=== PATIENT | male | born 1960 | race Caucasian/White ===

== ENCOUNTER → 2024-07-02 10:54 | Inpatient (IN) | payer MEDICARE, MEDICAID, SELFPAY ==
[2023-02-26] VITALS (10 sets, daily range): BP systolic 94–116; BP diastolic 64–72; PULSE 80–97; RESP 20–24; TEMP 36.4–36.6; O2SAT 97–99
[2023-02-26] MEDS: ALBUTEROL NEB 2.5 MG/3 ML VIAL.NEB INH ×4 (00:37→19:07)
[2023-02-26] MEDS: IPRATROPIUM BROMIDE 0.2 MG/ML SOLUTION 0.5 MG INH ×2 (00:37→09:15)
--- NOTE | 2023-02-26 02:31 | PC.RT ---
meds given at 00:37 both Atrovent and albuterol.
[2023-02-26] MEDS: LEVOTHYROXINE 50 MCG TABLET GT ×2 (05:26→09:21)
[2023-02-26] MEDS: LACTULOSE 10 GM/15 ML SOLUTION GT ×2 (05:28→21:05)
[2023-02-26] MEDS: acetaZOLAMIDE 250 MG TABLET GT ×2 (09:15→21:05)
[2023-02-26] MEDS: BUMETANIDE 2 MG TABLET GT ×2 (09:15→09:19)
[2023-02-26] MEDS: CARVEDILOL 3.125 MG TABLET GT ×2 (09:19→21:05)
[2023-02-26] MEDS: FAMOTIDINE 20 MG TABLET GT (09:20)
[2023-02-26] MEDS: FERROUS SULFATE 220 MG/5 ML ELIXIR 330 MG GT (09:20)
[2023-02-26] MEDS: MULTIVITAMIN 1 TAB TABLET GT (09:21)
[2023-02-26] MEDS: levETIRAcetam 100 MG/ML SOLUTION 750 MG GT ×2 (09:21→21:06)
[2023-02-26] MEDS: VALPROIC ACID 250 MG/5 ML 1000 MG GT (09:22)
--- NOTE | 2023-02-26 14:24 | PC.SS ---
Room visit: Resident is laying in bed with TV on with head of the bed elevated with call light properly placed. Resident is well groomed not showing any signs of distress. Resident has no changes in mood or behavior, resident to remain in current care as there is no changes in care or condition. Resident will continue to receive daily room visits from [facility] and will be offered any support needed.
--- NOTE | 2023-02-26 14:24 | PC.SS ---
Room visit: Resident is laying in bed with TV on with head of the bed elevated with call light properly placed. Resident is well groomed not showing any signs of distress. Resident has no changes in mood or behavior, resident to remain in current care as there is no changes in care or condition. Resident will continue to receive daily room visits from [facility] and will be offered any support needed.
[2023-02-27] VITALS (13 sets, daily range): BP systolic 99–118; BP diastolic 70–72; PULSE 70–96; RESP 20–24; TEMP 35.9–36.5; O2SAT 98–99
[2023-02-27] MEDS: ALBUTEROL NEB 2.5 MG/3 ML VIAL.NEB INH ×4 (00:49→18:50)
[2023-02-27] MEDS: LACTULOSE 10 GM/15 ML SOLUTION GT ×3 (05:24→20:25)
[2023-02-27] MEDS: LEVOTHYROXINE 50 MCG TABLET GT (05:25)
[2023-02-27] MEDS: IPRATROPIUM BROMIDE 0.2 MG/ML SOLUTION 0.5 MG INH ×3 (07:20→18:51)
[2023-02-27] MEDS: acetaZOLAMIDE 250 MG TABLET GT ×2 (08:35→20:36)
[2023-02-27] MEDS: BUMETANIDE 2 MG TABLET GT ×2 (08:35→20:36)
[2023-02-27] MEDS: FAMOTIDINE 20 MG TABLET GT (08:36)
[2023-02-27] MEDS: FERROUS SULFATE 220 MG/5 ML ELIXIR 330 MG GT (08:36)
[2023-02-27] MEDS: CARVEDILOL 3.125 MG TABLET GT (08:36)
[2023-02-27] MEDS: levETIRAcetam 100 MG/ML SOLUTION 750 MG GT (08:37)
[2023-02-27] MEDS: MULTIVITAMIN 1 TAB TABLET GT (08:38)
[2023-02-27] MEDS: VALPROIC ACID 250 MG/5 ML 1000 MG GT (08:39)
[2023-02-27] MEDS: levETIRAcetam 750 MG TABLET GT (20:37)
[2023-02-27] MEDS: POTASSIUM CHLORIDE 20 MEQ TAB.ER.PRT GT (20:39)
[2023-02-28] VITALS (13 sets, daily range): BP systolic 102–113; BP diastolic 68–76; PULSE 71–93; RESP 20–22; TEMP 36.1–36.6; O2SAT 97–99
[2023-02-28] MEDS: ALBUTEROL NEB 2.5 MG/3 ML VIAL.NEB INH ×4 (00:32→16:36)
[2023-02-28] MEDS: LACTULOSE 10 GM/15 ML SOLUTION GT ×3 (05:45→20:36)
[2023-02-28] MEDS: MAGNESIUM HYDROXIDE 30 ML ORAL SUSP ML GT (06:27)
[2023-02-28] MEDS: IPRATROPIUM BROMIDE 0.2 MG/ML SOLUTION 0.5 MG INH ×3 (07:01→16:36)
[2023-02-28] MEDS: acetaZOLAMIDE 250 MG TABLET GT ×2 (08:22→20:40)
[2023-02-28] MEDS: BUMETANIDE 2 MG TABLET GT ×2 (08:24→20:41)
[2023-02-28] MEDS: FAMOTIDINE 20 MG TABLET GT (08:26)
[2023-02-28] MEDS: FERROUS SULFATE 220 MG/5 ML ELIXIR 330 MG GT (08:27)
[2023-02-28] MEDS: levETIRAcetam 750 MG TABLET GT ×2 (08:28→20:43)
[2023-02-28] MEDS: POTASSIUM CHLORIDE 20 MEQ TAB.ER.PRT GT ×2 (08:28→20:43)
[2023-02-28] MEDS: MULTIVITAMIN 1 TAB TABLET GT (08:28)
[2023-02-28] MEDS: VALPROIC ACID 250 MG/5 ML 1000 MG GT (08:30)
[2023-02-28] MEDS: bisacodyL 10 MG SUPP.RECT PR (15:00)
[2023-03-01] VITALS (13 sets, daily range): BP systolic 92–134; BP diastolic 56–88; PULSE 74–111; RESP 20–27; TEMP 36.3–36.7; O2SAT 98–100
[2023-03-01] MEDS: ALBUTEROL NEB 2.5 MG/3 ML VIAL.NEB INH ×4 (01:28→18:57)
[2023-03-01] MEDS: IPRATROPIUM BROMIDE 0.2 MG/ML SOLUTION 0.5 MG INH ×4 (01:28→18:57)
[2023-03-01] MEDS: LEVOTHYROXINE 50 MCG TABLET GT ×3 (05:15→08:32)
[2023-03-01] MEDS: BUMETANIDE 2 MG TABLET GT ×2 (08:32→20:44)
[2023-03-01] MEDS: acetaZOLAMIDE 250 MG TABLET GT ×2 (08:32→20:44)
[2023-03-01] MEDS: FAMOTIDINE 20 MG TABLET GT (08:33)
[2023-03-01] MEDS: CARVEDILOL 3.125 MG TABLET GT (08:33)
[2023-03-01] MEDS: levETIRAcetam 750 MG TABLET GT ×2 (08:35→20:46)
[2023-03-01] MEDS: MULTIVITAMIN 1 TAB TABLET GT (08:35)
[2023-03-01] MEDS: POTASSIUM CHLORIDE 20 MEQ TAB.ER.PRT GT ×2 (08:36→20:47)
[2023-03-01] MEDS: VALPROIC ACID 250 MG/5 ML 1000 MG GT (08:36)
[2023-03-01] MEDS: LACTULOSE 10 GM/15 ML SOLUTION GT (20:43)
[2023-03-01] MEDS: ACETAMINOPHEN 325 MG TABLET 650 MG GT (20:47)
--- NOTE | 2023-03-01 22:43 | PD.SAPROG ---
Progress Note - SubAcute DIAGNOSIS (1) Chronic respiratory failure with hypoxia: Status: Acute (2) Dependent on ventilator: Status: Acute SUBJECTIVE Fever:: none GI:: none Shortness of Breath:: none GI:: no complaints Pain:: none OBJECTIVE Most recent vital signs: Last Vital Signs Temp 97.6 F 03/06/23 17:38 Pulse 93 03/06/23 20:14 Resp 20 03/06/23 17:38 BP 97/70 03/06/23 20:14 Pulse Ox 100 03/06/23 17:38 O2 Del Method Mechanical Ventilation 03/06/23 17:38 FiO2 34 03/06/23 12:55 Speech:: nods head and appropriate (Sometimes) Answers questions:: sometimes Respiratory:: lungs clear Cardiovascular: RRR Abdomen: soft and nontender Decubitus:: none Tracheostomy:: to ventilator Feeding per:: G tube Complaints:: none ASSESSMENT & PLAN Assessment: Patient with cognitive function delay, ventilator dependent. No distress. Stable condition. Diagnosis and treatment reviewed Plan: Current treatment continued
[2023-03-02] VITALS (12 sets, daily range): BP systolic 99–125; BP diastolic 59–79; PULSE 69–93; RESP 20–24; TEMP 36.1–36.6; O2SAT 97–100
[2023-03-02] MEDS: ALBUTEROL NEB 2.5 MG/3 ML VIAL.NEB INH ×2 (01:17→06:33)
[2023-03-02] MEDS: IPRATROPIUM BROMIDE 0.2 MG/ML SOLUTION 0.5 MG INH ×2 (01:17→06:33)
[2023-03-02] MEDS: LACTULOSE 10 GM/15 ML SOLUTION GT ×3 (05:34→21:14)
[2023-03-02] MEDS: LEVOTHYROXINE 50 MCG TABLET GT ×2 (05:36→08:10)
[2023-03-02] MEDS: FERROUS SULFATE 220 MG/5 ML ELIXIR 330 MG GT ×2 (08:07→09:00)
[2023-03-02] MEDS: BUMETANIDE 2 MG TABLET GT ×2 (08:08→20:34)
[2023-03-02] MEDS: acetaZOLAMIDE 250 MG TABLET GT ×2 (08:08→20:34)
[2023-03-02] MEDS: POTASSIUM CHLORIDE 20 MEQ TAB.ER.PRT GT ×2 (08:09→20:36)
[2023-03-02] MEDS: levETIRAcetam 750 MG TABLET GT ×2 (08:09→20:35)
[2023-03-02] MEDS: FAMOTIDINE 20 MG TABLET GT (08:09)
[2023-03-02] MEDS: MULTIVITAMIN 1 TAB TABLET GT (08:09)
[2023-03-02] MEDS: CARVEDILOL 3.125 MG TABLET GT (08:09)
[2023-03-02] MEDS: VALPROIC ACID 250 MG/5 ML 1000 MG GT (09:00)
[2023-03-02] MEDS: IPRATROPIUM/ALBUTEROL 3 ML AMPUL.NEB INH ×2 (11:10→19:07)
[2023-03-03] VITALS (13 sets, daily range): BP systolic 107–140; BP diastolic 70–85; PULSE 69–111; RESP 20–24; TEMP 36.1–36.4; O2SAT 95–100
[2023-03-03] MEDS: IPRATROPIUM/ALBUTEROL 3 ML AMPUL.NEB INH ×4 (00:29→19:21)
[2023-03-03] MEDS: LEVOTHYROXINE 50 MCG TABLET GT (06:03)
[2023-03-03] MEDS: LACTULOSE 10 GM/15 ML SOLUTION GT ×3 (06:15→21:05)
[2023-03-03] MEDS: FERROUS SULFATE 220 MG/5 ML ELIXIR 330 MG GT (08:39)
[2023-03-03] MEDS: VALPROIC ACID 250 MG/5 ML 1000 MG GT (08:40)
[2023-03-03] MEDS: BUMETANIDE 2 MG TABLET GT ×2 (08:40→20:17)
[2023-03-03] MEDS: acetaZOLAMIDE 250 MG TABLET GT ×2 (08:40→20:17)
[2023-03-03] MEDS: levETIRAcetam 750 MG TABLET GT ×2 (08:41→20:19)
[2023-03-03] MEDS: FAMOTIDINE 20 MG TABLET GT (08:41)
[2023-03-03] MEDS: CARVEDILOL 3.125 MG TABLET GT ×2 (08:41→20:18)
[2023-03-03] MEDS: MULTIVITAMIN 1 TAB TABLET GT (08:42)
[2023-03-03] MEDS: POTASSIUM CHLORIDE 20 MEQ TAB.ER.PRT GT ×2 (08:42→20:20)
[2023-03-03] MEDS: LOSARTAN 25 MG TABLET GT (20:19)
[2023-03-04] VITALS (11 sets, daily range): BP systolic 92–115; BP diastolic 58–69; PULSE 73–102; RESP 18–25; TEMP 36.2; O2SAT 98–100
[2023-03-04] MEDS: IPRATROPIUM/ALBUTEROL 3 ML AMPUL.NEB INH ×4 (00:54→18:50)
[2023-03-04] MEDS: LACTULOSE 10 GM/15 ML SOLUTION GT ×4 (05:37→21:17)
[2023-03-04] MEDS: LEVOTHYROXINE 50 MCG TABLET GT (05:38)
[2023-03-04] MEDS: acetaZOLAMIDE 250 MG TABLET GT ×3 (08:40→21:18)
[2023-03-04] MEDS: BUMETANIDE 2 MG TABLET GT ×2 (08:40→21:16)
[2023-03-04] MEDS: FAMOTIDINE 20 MG TABLET GT (08:42)
[2023-03-04] MEDS: CARVEDILOL 3.125 MG TABLET GT ×2 (08:42→21:16)
[2023-03-04] MEDS: levETIRAcetam 750 MG TABLET GT ×2 (08:43→21:17)
[2023-03-04] MEDS: VALPROIC ACID 250 MG/5 ML 1000 MG GT (08:44)
[2023-03-04] MEDS: POTASSIUM CHLORIDE 20 MEQ TAB.ER.PRT GT ×2 (08:44→21:17)
[2023-03-04] MEDS: MULTIVITAMIN 1 TAB TABLET GT (08:44)
[2023-03-04] MEDS: FERROUS SULFATE 220 MG/5 ML ELIXIR 330 MG GT (08:47)
[2023-03-05] VITALS (12 sets, daily range): BP systolic 93–116; BP diastolic 58–79; PULSE 71–103; RESP 20–24; TEMP 36.2–36.3; O2SAT 95–99
[2023-03-05] MEDS: IPRATROPIUM/ALBUTEROL 3 ML AMPUL.NEB INH ×4 (00:30→19:23)
[2023-03-05] MEDS: LACTULOSE 10 GM/15 ML SOLUTION GT ×3 (05:03→20:15)
[2023-03-05] MEDS: LEVOTHYROXINE 50 MCG TABLET GT (05:03)
[2023-03-05] MEDS: acetaZOLAMIDE 250 MG TABLET GT ×2 (08:20→20:06)
[2023-03-05] MEDS: BUMETANIDE 2 MG TABLET GT ×2 (08:21→20:06)
[2023-03-05] MEDS: CARVEDILOL 3.125 MG TABLET GT (08:22)
[2023-03-05] MEDS: FERROUS SULFATE 220 MG/5 ML ELIXIR 330 MG GT (08:23)
[2023-03-05] MEDS: FAMOTIDINE 20 MG TABLET GT (08:23)
[2023-03-05] MEDS: POTASSIUM CHLORIDE 20 MEQ TAB.ER.PRT GT ×2 (08:23→20:13)
[2023-03-05] MEDS: MULTIVITAMIN 1 TAB TABLET GT (08:23)
[2023-03-05] MEDS: levETIRAcetam 750 MG TABLET GT ×2 (08:23→20:10)
--- NOTE | 2023-03-05 10:39 | CHAP ---
Patient was sleeping peacefully. Prayed quietly in room for him.
--- NOTE | 2023-03-05 11:03 | PC.SS ---
Room change: This SSD called and spoke with resident RP/Father Ryley Javier to inform him of room change happening today. Ryley asked if resident would be moved back to his room once available, this SSD informed him no promise can be made but would try once opportunity becomes available. Ryley informed resident will go from room 110 to room 117A. This SSD will follow up with resident and monitor well being due to change in room and environment. Resident will be offered support needed for new transition and roommate as well.
--- NOTE | 2023-03-05 15:49 | PC.SS ---
Room visit: Resident is laying in bed with TV on with head of the bed elevated with call light properly placed. Resident is well groomed not showing any signs of distress. Resident continues to receive daily room visit from this SSD. Resident has no changes in mood or behavior, resident to remain in current care as there is no changes in care or condition.
[2023-03-05] MEDS: VALPROIC ACID 250 MG/5 ML 1000 MG GT (19:25)
[2023-03-06] VITALS (12 sets, daily range): BP systolic 94–126; BP diastolic 63–73; PULSE 72–97; RESP 20–22; TEMP 36.2–36.4; O2SAT 97–100
[2023-03-06] MEDS: IPRATROPIUM/ALBUTEROL 3 ML AMPUL.NEB INH ×3 (00:46→12:55)
[2023-03-06] MEDS: LACTULOSE 10 GM/15 ML SOLUTION GT ×3 (05:40→20:18)
[2023-03-06] MEDS: LEVOTHYROXINE 50 MCG TABLET GT (05:40)
[2023-03-06] MEDS: BUMETANIDE 2 MG TABLET GT ×2 (09:24→20:13)
[2023-03-06] MEDS: acetaZOLAMIDE 250 MG TABLET GT ×2 (09:25→20:13)
[2023-03-06] MEDS: levETIRAcetam 750 MG TABLET GT ×2 (09:25→20:11)
[2023-03-06] MEDS: FAMOTIDINE 20 MG TABLET GT (09:26)
[2023-03-06] MEDS: CARVEDILOL 3.125 MG TABLET GT (09:26)
[2023-03-06] MEDS: MULTIVITAMIN 1 TAB TABLET GT (09:27)
[2023-03-06] MEDS: FERROUS SULFATE 220 MG/5 ML ELIXIR 330 MG GT (09:27)
[2023-03-06] MEDS: VALPROIC ACID 250 MG/5 ML 1000 MG GT (09:28)
[2023-03-06] MEDS: POTASSIUM CHLORIDE 20 MEQ TAB.ER.PRT GT ×2 (09:28→20:15)
[2023-03-07] VITALS (12 sets, daily range): BP systolic 96–140; BP diastolic 65–82; PULSE 71–104; RESP 20–24; TEMP 36.1–36.4; O2SAT 98–100
[2023-03-07] MEDS: IPRATROPIUM/ALBUTEROL 3 ML AMPUL.NEB INH ×4 (00:39→19:04)
[2023-03-07] MEDS: LEVOTHYROXINE 50 MCG TABLET GT (06:14)
[2023-03-07] MEDS: LACTULOSE 10 GM/15 ML SOLUTION GT ×3 (06:14→21:10)
[2023-03-07] MEDS: BUMETANIDE 2 MG TABLET GT ×2 (08:32→20:09)
[2023-03-07] MEDS: levETIRAcetam 750 MG TABLET GT ×2 (08:34→20:08)
[2023-03-07] MEDS: FAMOTIDINE 20 MG TABLET GT (08:34)
[2023-03-07] MEDS: CARVEDILOL 3.125 MG TABLET GT ×2 (08:34→20:10)
[2023-03-07] MEDS: acetaZOLAMIDE 250 MG TABLET GT ×2 (08:34→20:08)
[2023-03-07] MEDS: MULTIVITAMIN 1 TAB TABLET GT (08:36)
[2023-03-07] MEDS: FERROUS SULFATE 220 MG/5 ML ELIXIR 330 MG GT (08:36)
[2023-03-07] MEDS: POTASSIUM CHLORIDE 20 MEQ TAB.ER.PRT GT ×2 (08:37→20:09)
[2023-03-07] MEDS: VALPROIC ACID 250 MG/5 ML 1000 MG GT (08:38)
[2023-03-07] MEDS: LOSARTAN 25 MG TABLET GT (20:10)
[2023-03-08] VITALS (14 sets, daily range): BP systolic 94–132; BP diastolic 60–83; PULSE 88–111; RESP 20–24; TEMP 36.2–36.5; O2SAT 97–100
[2023-03-08] MEDS: IPRATROPIUM/ALBUTEROL 3 ML AMPUL.NEB INH ×4 (00:44→19:47)
[2023-03-08] MEDS: LACTULOSE 10 GM/15 ML SOLUTION GT ×3 (05:04→21:11)
[2023-03-08] MEDS: LEVOTHYROXINE 50 MCG TABLET GT (05:04)
[2023-03-08] MEDS: BUMETANIDE 2 MG TABLET GT ×2 (08:06→21:10)
[2023-03-08] MEDS: acetaZOLAMIDE 250 MG TABLET GT ×2 (08:07→20:02)
[2023-03-08] MEDS: levETIRAcetam 750 MG TABLET GT ×2 (08:07→20:02)
[2023-03-08] MEDS: FERROUS SULFATE 220 MG/5 ML ELIXIR 330 MG GT (08:09)
[2023-03-08] MEDS: FAMOTIDINE 20 MG TABLET GT (08:09)
[2023-03-08] MEDS: MULTIVITAMIN 1 TAB TABLET GT (08:10)
[2023-03-08] MEDS: POTASSIUM CHLORIDE 20 MEQ TAB.ER.PRT GT ×2 (08:10→20:04)
[2023-03-08] MEDS: VALPROIC ACID 250 MG/5 ML 1000 MG GT (08:10)
[2023-03-08] MEDS: guaiFENesin Liq 100 MG/5 ML LIQUID GT (20:05)
[2023-03-08] MEDS: ACETAMINOPHEN 325 MG TABLET 650 MG GT (20:05)
[2023-03-09] VITALS (12 sets, daily range): BP systolic 99–142; BP diastolic 64–84; PULSE 79–110; RESP 19–28; TEMP 36.1–36.6; O2SAT 23–100
[2023-03-09] MEDS: IPRATROPIUM/ALBUTEROL 3 ML AMPUL.NEB INH ×4 (00:54→19:25)
[2023-03-09] MEDS: LACTULOSE 10 GM/15 ML SOLUTION GT ×3 (05:21→21:20)
[2023-03-09] MEDS: LEVOTHYROXINE 50 MCG TABLET GT (05:21)
[2023-03-09] MEDS: levETIRAcetam 750 MG TABLET GT ×2 (08:51→20:40)
[2023-03-09] MEDS: BUMETANIDE 2 MG TABLET GT ×2 (08:51→20:37)
[2023-03-09] MEDS: acetaZOLAMIDE 250 MG TABLET GT ×2 (08:51→20:40)
[2023-03-09] MEDS: CARVEDILOL 3.125 MG TABLET GT ×2 (08:52→20:40)
[2023-03-09] MEDS: FAMOTIDINE 20 MG TABLET GT (08:52)
[2023-03-09] MEDS: FERROUS SULFATE 220 MG/5 ML ELIXIR 330 MG GT (08:53)
[2023-03-09] MEDS: POTASSIUM CHLORIDE 20 MEQ TAB.ER.PRT GT ×2 (08:53→20:41)
[2023-03-09] MEDS: MULTIVITAMIN 1 TAB TABLET GT (08:53)
[2023-03-09] MEDS: VALPROIC ACID 250 MG/5 ML 1000 MG GT (08:54)
[2023-03-09] MEDS: LOSARTAN 25 MG TABLET GT (20:40)
--- NOTE | 2023-03-09 22:05 | PD.SAPROG ---
Progress Note - SubAcute DIAGNOSIS (1) Chronic respiratory failure with hypoxia: Status: Acute (2) Dependent on ventilator: Status: Acute SUBJECTIVE Fever:: none GI:: none Shortness of Breath:: none GI:: no complaints Pain:: none OBJECTIVE Most recent vital signs: Last Vital Signs Temp 97.0 F 03/09/23 18:00 Pulse 94 03/09/23 20:40 Resp 21 H 03/09/23 19:25 BP 121/79 03/09/23 20:40 Pulse Ox 99 03/09/23 19:25 O2 Del Method Mechanical Ventilation 03/09/23 06:00 FiO2 34 03/09/23 19:25 Neurological:: awake Speech:: nods head and appropriate (Sometimes) Answers questions:: sometimes Respiratory:: lungs clear Cardiovascular: RRR Abdomen: soft and nontender Decubitus:: none Tracheostomy:: to ventilator Feeding per:: G tube Complaints:: none ASSESSMENT & PLAN Assessment: Patient with cognitive function delay, ventilator dependent. No distress. Stable condition. Diagnosis and treatment reviewed Plan: Current treatment continued
[2023-03-10] VITALS (10 sets, daily range): BP systolic 82–113; BP diastolic 55–79; PULSE 79–103; RESP 21–26; TEMP 36.1–36.3; O2SAT 98–100
[2023-03-10] MEDS: IPRATROPIUM/ALBUTEROL 3 ML AMPUL.NEB INH ×4 (00:45→19:40)
[2023-03-10] MEDS: LEVOTHYROXINE 50 MCG TABLET GT (05:14)
[2023-03-10] MEDS: LACTULOSE 10 GM/15 ML SOLUTION GT ×3 (05:14→21:14)
[2023-03-10] MEDS: acetaZOLAMIDE 250 MG TABLET GT ×2 (08:13→20:33)
[2023-03-10] MEDS: BUMETANIDE 2 MG TABLET GT ×2 (08:13→20:33)
[2023-03-10] MEDS: VALPROIC ACID 250 MG/5 ML 1000 MG GT (08:14)
[2023-03-10] MEDS: FAMOTIDINE 20 MG TABLET GT (08:14)
[2023-03-10] MEDS: FERROUS SULFATE 220 MG/5 ML ELIXIR 330 MG GT (08:14)
[2023-03-10] MEDS: POTASSIUM CHLORIDE 20 MEQ TAB.ER.PRT GT ×2 (08:14→20:34)
[2023-03-10] MEDS: levETIRAcetam 750 MG TABLET GT ×2 (08:14→20:34)
[2023-03-10] MEDS: MULTIVITAMIN 1 TAB TABLET GT (08:14)
[2023-03-10] MEDS: CARVEDILOL 3.125 MG TABLET GT (20:34)
[2023-03-11] VITALS (11 sets, daily range): BP systolic 100–137; BP diastolic 65–80; PULSE 80–118; RESP 20–28; TEMP 36.1–36.4; O2SAT 95–100
[2023-03-11] MEDS: ACETAMINOPHEN 325 MG TABLET 650 MG GT (00:10)
[2023-03-11] MEDS: guaiFENesin Liq 100 MG/5 ML LIQUID GT (00:22)
[2023-03-11] MEDS: IPRATROPIUM/ALBUTEROL 3 ML AMPUL.NEB INH ×4 (00:35→19:20)
[2023-03-11] MEDS: LACTULOSE 10 GM/15 ML SOLUTION GT ×3 (05:08→21:07)
[2023-03-11] MEDS: LEVOTHYROXINE 50 MCG TABLET GT (05:08)
[2023-03-11] MEDS: acetaZOLAMIDE 250 MG TABLET GT ×2 (08:36→20:26)
[2023-03-11] MEDS: FAMOTIDINE 20 MG TABLET GT (08:37)
[2023-03-11] MEDS: BUMETANIDE 2 MG TABLET GT ×2 (08:37→20:26)
[2023-03-11] MEDS: CARVEDILOL 3.125 MG TABLET GT ×2 (08:37→20:27)
[2023-03-11] MEDS: levETIRAcetam 750 MG TABLET GT ×2 (08:38→20:27)
[2023-03-11] MEDS: FERROUS SULFATE 220 MG/5 ML ELIXIR 330 MG GT (08:38)
[2023-03-11] MEDS: POTASSIUM CHLORIDE 20 MEQ TAB.ER.PRT GT ×2 (08:39→20:27)
[2023-03-11] MEDS: MULTIVITAMIN 1 TAB TABLET GT (08:39)
[2023-03-11] MEDS: VALPROIC ACID 250 MG/5 ML 1000 MG GT (08:40)
--- NOTE | 2023-03-11 12:28 | PC.SS ---
Room visit: Resident is laying in bed with head of the bed elevated. Resident has TV on with call light properly placed, showing no signs of distress or changes in mood or behavior. Resident has no changes in care or condition, resident will remain in current care and will continue to be evaluated as appropriate fro DC to lower level of care. Resident will continue to receive daily room visits from staff.
--- NOTE | 2023-03-11 12:28 | PC.SS ---
Room change follow up: Resident is adjusting to room change and environment change. Resident appears to be compatible with new roommate, with no questions or concerns from both families.
[2023-03-11] MEDS: LOSARTAN 25 MG TABLET GT (20:27)
[2023-03-12] VITALS (11 sets, daily range): BP systolic 96–118; BP diastolic 59–76; PULSE 84–103; RESP 20–28; TEMP 36.1–36.5; O2SAT 97–99
[2023-03-12] MEDS: IPRATROPIUM/ALBUTEROL 3 ML AMPUL.NEB INH ×4 (00:24→19:52)
[2023-03-12] MEDS: LEVOTHYROXINE 50 MCG TABLET GT (05:29)
[2023-03-12] MEDS: LACTULOSE 10 GM/15 ML SOLUTION GT ×2 (05:29→21:02)
[2023-03-12] MEDS: BUMETANIDE 2 MG TABLET GT ×2 (08:42→21:00)
[2023-03-12] MEDS: acetaZOLAMIDE 250 MG TABLET GT ×2 (08:42→21:00)
[2023-03-12] MEDS: FAMOTIDINE 20 MG TABLET GT (08:44)
[2023-03-12] MEDS: levETIRAcetam 750 MG TABLET GT ×2 (08:45→21:01)
[2023-03-12] MEDS: FERROUS SULFATE 220 MG/5 ML ELIXIR 330 MG GT (08:45)
[2023-03-12] MEDS: MULTIVITAMIN 1 TAB TABLET GT (08:46)
[2023-03-12] MEDS: POTASSIUM CHLORIDE 20 MEQ TAB.ER.PRT GT ×2 (08:46→21:01)
[2023-03-12] MEDS: VALPROIC ACID 250 MG/5 ML 1000 MG GT (08:47)
[2023-03-12] MEDS: guaiFENesin Liq 100 MG/5 ML LIQUID GT (08:47)
--- NOTE | 2023-03-12 13:17 | CHAP ---
Patient was sleeping peacefully. Prayed quietly by bedside.
[2023-03-12] MEDS: CARVEDILOL 3.125 MG TABLET GT (21:01)
[2023-03-13] VITALS (12 sets, daily range): BP systolic 90–140; BP diastolic 62–84; PULSE 75–102; RESP 20–26; TEMP 36.2–36.3; O2SAT 97–100
[2023-03-13] MEDS: IPRATROPIUM/ALBUTEROL 3 ML AMPUL.NEB INH ×4 (01:54→19:12)
[2023-03-13] MEDS: LACTULOSE 10 GM/15 ML SOLUTION GT ×3 (05:25→21:02)
[2023-03-13] MEDS: LEVOTHYROXINE 50 MCG TABLET GT (05:25)
[2023-03-13] MEDS: BUMETANIDE 2 MG TABLET GT ×2 (08:59→20:59)
[2023-03-13] MEDS: acetaZOLAMIDE 250 MG TABLET GT ×2 (08:59→20:59)
[2023-03-13] MEDS: FAMOTIDINE 20 MG TABLET GT (09:01)
[2023-03-13] MEDS: levETIRAcetam 750 MG TABLET GT ×2 (09:01→21:00)
[2023-03-13] MEDS: FERROUS SULFATE 220 MG/5 ML ELIXIR 330 MG GT (09:01)
[2023-03-13] MEDS: MULTIVITAMIN 1 TAB TABLET GT (09:02)
[2023-03-13] MEDS: POTASSIUM CHLORIDE 20 MEQ TAB.ER.PRT GT ×2 (09:02→21:01)
[2023-03-13] MEDS: VALPROIC ACID 250 MG/5 ML 1000 MG GT (09:03)
[2023-03-13] MEDS: guaiFENesin Liq 100 MG/5 ML LIQUID GT (15:31)
[2023-03-13] MEDS: ACETAMINOPHEN 325 MG TABLET 650 MG GT (15:31)
[2023-03-13] MEDS: LOSARTAN 25 MG TABLET GT (21:00)
[2023-03-13] MEDS: CARVEDILOL 3.125 MG TABLET GT (21:00)
--- NOTE | 2023-03-13 22:19 | PD.SAPROG ---
Progress Note - SubAcute DIAGNOSIS (1) Chronic respiratory failure with hypoxia: Status: Acute (2) Dependent on ventilator: Status: Acute SUBJECTIVE Fever:: none GI:: none Shortness of Breath:: none GI:: no complaints Pain:: none OBJECTIVE Most recent vital signs: Last Vital Signs Temp 97.1 F 03/13/23 17:45 Pulse 99 03/13/23 21:00 Resp 22 H 03/13/23 17:45 BP 111/68 03/13/23 21:00 Pulse Ox 99 03/13/23 16:55 O2 Del Method Mechanical Ventilation 03/12/23 06:00 FiO2 33 03/13/23 16:55 Neurological:: awake Speech:: nods head and appropriate (Sometimes) Answers questions:: sometimes Respiratory:: lungs clear Cardiovascular: RRR Abdomen: soft and nontender Decubitus:: none Tracheostomy:: to ventilator Feeding per:: G tube Complaints:: none ASSESSMENT & PLAN Assessment: Patient with cognitive function delay, ventilator dependent. No distress. Stable condition. Diagnosis and treatment reviewed Plan: Current treatment continued
[2023-03-14] VITALS (11 sets, daily range): BP systolic 91–112; BP diastolic 55–72; PULSE 52–97; RESP 18–25; TEMP 36–36.2; O2SAT 98–99
[2023-03-14] MEDS: IPRATROPIUM/ALBUTEROL 3 ML AMPUL.NEB INH ×4 (01:13→19:24)
[2023-03-14] MEDS: LACTULOSE 10 GM/15 ML SOLUTION GT ×3 (05:38→21:50)
[2023-03-14] MEDS: LEVOTHYROXINE 50 MCG TABLET GT (05:38)
[2023-03-14] MEDS: guaiFENesin Liq 100 MG/5 ML LIQUID GT (07:30)
[2023-03-14] MEDS: ACETAMINOPHEN 325 MG TABLET 650 MG GT ×2 (07:31→20:22)
[2023-03-14] MEDS: acetaZOLAMIDE 250 MG TABLET GT ×2 (09:39→20:17)
[2023-03-14] MEDS: POTASSIUM CHLORIDE 20 MEQ TAB.ER.PRT GT ×2 (09:40→20:21)
[2023-03-14] MEDS: levETIRAcetam 750 MG TABLET GT ×2 (09:40→20:21)
[2023-03-14] MEDS: VALPROIC ACID 250 MG/5 ML 1000 MG GT (09:40)
[2023-03-14] MEDS: CARVEDILOL 3.125 MG TABLET GT ×2 (09:40→20:20)
[2023-03-14] MEDS: MULTIVITAMIN 1 TAB TABLET GT (09:40)
[2023-03-14] MEDS: FERROUS SULFATE 220 MG/5 ML ELIXIR 330 MG GT (09:40)
[2023-03-14] MEDS: FAMOTIDINE 20 MG TABLET GT (09:40)
[2023-03-14] MEDS: BUMETANIDE 2 MG TABLET GT ×2 (09:42→20:18)
[2023-03-15] VITALS (13 sets, daily range): BP systolic 104–131; BP diastolic 67–85; PULSE 60–99; RESP 18–23; TEMP 36.1–36.3; O2SAT 98–100
[2023-03-15] MEDS: IPRATROPIUM/ALBUTEROL 3 ML AMPUL.NEB INH ×4 (00:57→18:31)
[2023-03-15] MEDS: LACTULOSE 10 GM/15 ML SOLUTION GT ×3 (05:19→21:18)
[2023-03-15] MEDS: LEVOTHYROXINE 50 MCG TABLET GT (05:19)
[2023-03-15] MEDS: acetaZOLAMIDE 250 MG TABLET GT ×2 (09:11→20:43)
[2023-03-15] MEDS: BUMETANIDE 2 MG TABLET GT ×2 (09:12→20:43)
[2023-03-15] MEDS: levETIRAcetam 750 MG TABLET GT ×2 (09:13→20:44)
[2023-03-15] MEDS: CARVEDILOL 3.125 MG TABLET GT (09:13)
[2023-03-15] MEDS: FERROUS SULFATE 220 MG/5 ML ELIXIR 330 MG GT (09:13)
[2023-03-15] MEDS: FAMOTIDINE 20 MG TABLET GT (09:13)
[2023-03-15] MEDS: MULTIVITAMIN 1 TAB TABLET GT (09:13)
[2023-03-15] MEDS: POTASSIUM CHLORIDE 20 MEQ TAB.ER.PRT GT ×2 (09:13→20:44)
[2023-03-15] MEDS: VALPROIC ACID 250 MG/5 ML 1000 MG GT (09:14)
[2023-03-15] MEDS: ACETAMINOPHEN 325 MG TABLET 650 MG GT (20:44)
[2023-03-15] MEDS: guaiFENesin Liq 100 MG/5 ML LIQUID GT (20:45)
[2023-03-16] VITALS (10 sets, daily range): BP systolic 93–113; BP diastolic 61–73; PULSE 74–102; RESP 21–35; TEMP 36.4–36.6; O2SAT 99–100
[2023-03-16] MEDS: IPRATROPIUM/ALBUTEROL 3 ML AMPUL.NEB INH ×5 (00:36→23:58)
[2023-03-16] MEDS: LEVOTHYROXINE 50 MCG TABLET GT (05:33)
[2023-03-16] MEDS: LACTULOSE 10 GM/15 ML SOLUTION GT ×3 (05:33→21:07)
[2023-03-16] MEDS: BUMETANIDE 2 MG TABLET GT ×2 (07:58→21:06)
[2023-03-16] MEDS: acetaZOLAMIDE 250 MG TABLET GT ×2 (07:58→21:06)
[2023-03-16] MEDS: MULTIVITAMIN 1 TAB TABLET GT (07:59)
[2023-03-16] MEDS: FERROUS SULFATE 220 MG/5 ML ELIXIR 330 MG GT (07:59)
[2023-03-16] MEDS: FAMOTIDINE 20 MG TABLET GT (07:59)
[2023-03-16] MEDS: VALPROIC ACID 250 MG/5 ML 1000 MG GT (07:59)
[2023-03-16] MEDS: levETIRAcetam 750 MG TABLET GT ×2 (07:59→21:07)
[2023-03-16] MEDS: POTASSIUM CHLORIDE 20 MEQ TAB.ER.PRT GT ×2 (07:59→21:07)
--- NOTE | 2023-03-16 10:48 | PC.SS ---
Room visit: Resident is laying in bed with curtain open and TV on. He is well groomed and appears to be doing well in new room. Resident is not showing any signs of distress or any changes in mood or behavior. Resident appears to be compatible with new roommate, no concerns or questions from staff or family related to the move. Resident will continue to receive daily room visits from [facility].
[2023-03-17] VITALS (12 sets, daily range): BP systolic 97–112; BP diastolic 57–74; PULSE 68–95; RESP 20–29; TEMP 36.2–36.3; O2SAT 97–100
[2023-03-17] MEDS: LEVOTHYROXINE 50 MCG TABLET GT (05:09)
[2023-03-17] MEDS: LACTULOSE 10 GM/15 ML SOLUTION GT ×3 (05:09→21:14)
[2023-03-17] MEDS: IPRATROPIUM/ALBUTEROL 3 ML AMPUL.NEB INH ×3 (07:48→19:54)
[2023-03-17] MEDS: acetaZOLAMIDE 250 MG TABLET GT ×2 (09:27→21:11)
[2023-03-17] MEDS: BUMETANIDE 2 MG TABLET GT ×2 (09:28→21:12)
[2023-03-17] MEDS: CARBAMIDE PEROXIDE OTIC SOL 15 ML BTL 5 DROP BOTH EARS (09:28)
[2023-03-17] MEDS: FAMOTIDINE 20 MG TABLET GT (09:29)
[2023-03-17] MEDS: FERROUS SULFATE 220 MG/5 ML ELIXIR 330 MG GT (09:29)
[2023-03-17] MEDS: CARVEDILOL 3.125 MG TABLET GT ×2 (09:29→21:13)
[2023-03-17] MEDS: POTASSIUM CHLORIDE 20 MEQ TAB.ER.PRT GT ×2 (09:30→21:14)
[2023-03-17] MEDS: MULTIVITAMIN 1 TAB TABLET GT (09:30)
[2023-03-17] MEDS: VALPROIC ACID 250 MG/5 ML 1000 MG GT (09:30)
[2023-03-17] MEDS: levETIRAcetam 750 MG TABLET GT ×2 (09:30→21:13)
--- NOTE | 2023-03-17 10:55 | PD.SAPROG ---
Progress Note - SubAcute DIAGNOSIS (1) Chronic respiratory failure with hypoxia: Status: Acute (2) Dependent on ventilator: Status: Acute SUBJECTIVE Fever:: none GI:: none Shortness of Breath:: none GI:: no complaints Pain:: none OBJECTIVE Most recent vital signs: Last Vital Signs Temp 96.8 F 03/19/23 06:00 Pulse 74 03/19/23 06:00 Resp 20 03/19/23 06:00 BP 99/62 03/19/23 06:00 Pulse Ox 98 03/19/23 06:00 O2 Del Method Mechanical Ventilation 03/18/23 12:00 FiO2 34 03/19/23 01:03 Neurological:: awake Speech:: nods head and appropriate (Sometimes) Answers questions:: sometimes Respiratory:: lungs clear Cardiovascular: RRR Abdomen: soft and nontender Decubitus:: none Tracheostomy:: to ventilator Feeding per:: G tube Complaints:: none ASSESSMENT & PLAN Assessment: Patient with cognitive function delay, ventilator dependent. No distress. Stable condition. Diagnosis and treatment reviewed Plan: Current treatment continued
[2023-03-17] MEDS: LOSARTAN 25 MG TABLET GT (21:14)
[2023-03-18] VITALS (12 sets, daily range): BP systolic 83–112; BP diastolic 56–75; PULSE 68–96; RESP 20–25; TEMP 36.1–36.5; O2SAT 95–100
[2023-03-18] MEDS: IPRATROPIUM/ALBUTEROL 3 ML AMPUL.NEB INH ×4 (00:16→19:32)
[2023-03-18] MEDS: ACETAMINOPHEN 325 MG TABLET 650 MG GT ×2 (01:25→20:54)
[2023-03-18] MEDS: LEVOTHYROXINE 50 MCG TABLET GT (05:41)
[2023-03-18] MEDS: LACTULOSE 10 GM/15 ML SOLUTION GT ×3 (05:41→21:14)
[2023-03-18] MEDS: acetaZOLAMIDE 250 MG TABLET GT ×2 (08:47→20:48)
[2023-03-18] MEDS: BUMETANIDE 2 MG TABLET GT ×2 (08:47→20:49)
[2023-03-18] MEDS: FAMOTIDINE 20 MG TABLET GT (08:48)
[2023-03-18] MEDS: VALPROIC ACID 250 MG/5 ML 1000 MG GT (08:48)
[2023-03-18] MEDS: levETIRAcetam 750 MG TABLET GT ×2 (08:48→20:50)
[2023-03-18] MEDS: FERROUS SULFATE 220 MG/5 ML ELIXIR 330 MG GT (08:48)
[2023-03-18] MEDS: CARVEDILOL 3.125 MG TABLET GT (08:48)
[2023-03-18] MEDS: MULTIVITAMIN 1 TAB TABLET GT (08:48)
[2023-03-18] MEDS: POTASSIUM CHLORIDE 20 MEQ TAB.ER.PRT GT ×2 (08:48→20:50)
[2023-03-19] VITALS (13 sets, daily range): BP systolic 91–114; BP diastolic 56–72; PULSE 67–103; RESP 20–25; TEMP 36–36.2; O2SAT 96–99
[2023-03-19] MEDS: IPRATROPIUM/ALBUTEROL 3 ML AMPUL.NEB INH ×4 (01:02→19:15)
[2023-03-19] MEDS: LACTULOSE 10 GM/15 ML SOLUTION GT ×3 (05:10→21:22)
[2023-03-19] MEDS: LEVOTHYROXINE 50 MCG TABLET GT (05:10)
[2023-03-19] MEDS: acetaZOLAMIDE 250 MG TABLET GT ×2 (09:24→20:14)
[2023-03-19] MEDS: BUMETANIDE 2 MG TABLET GT ×2 (09:25→20:14)
[2023-03-19] MEDS: levETIRAcetam 750 MG TABLET GT ×2 (09:26→20:15)
[2023-03-19] MEDS: FAMOTIDINE 20 MG TABLET GT (09:26)
[2023-03-19] MEDS: POTASSIUM CHLORIDE 20 MEQ TAB.ER.PRT GT ×2 (09:26→20:15)
[2023-03-19] MEDS: MULTIVITAMIN 1 TAB TABLET GT (09:27)
[2023-03-19] MEDS: FERROUS SULFATE 220 MG/5 ML ELIXIR 330 MG GT (09:28)
[2023-03-19] MEDS: VALPROIC ACID 250 MG/5 ML 1000 MG GT (09:40)
--- NOTE | 2023-03-19 13:37 | CHAP ---
Patient seemed to express gratitude for visit and prayer.
--- NOTE | 2023-03-19 14:37 | PC.SS ---
Room visit: Resident is seen laying in bed with head of the bed elevated, resident has call light properly placed with no signs of distress. Resident is well groomed and appears comfortable. Resident continues to receive daily room visits, he is not showing any changes in mood or behavior. Resident will continue to receive room visits from staff and be offered support as he will accept.
[2023-03-19] MEDS: CARVEDILOL 3.125 MG TABLET GT (20:15)
[2023-03-19] MEDS: LOSARTAN 25 MG TABLET GT (20:15)
[2023-03-19] MEDS: ACETAMINOPHEN 325 MG TABLET 650 MG GT (20:15)
[2023-03-20] VITALS (12 sets, daily range): BP systolic 96–118; BP diastolic 56–74; PULSE 66–91; RESP 20–27; TEMP 36.1–36.7; O2SAT 98–100
[2023-03-20] MEDS: IPRATROPIUM/ALBUTEROL 3 ML AMPUL.NEB INH ×4 (00:40→19:25)
[2023-03-20] MEDS: LEVOTHYROXINE 50 MCG TABLET GT (05:11)
[2023-03-20] MEDS: acetaZOLAMIDE 250 MG TABLET GT ×2 (08:05→20:07)
[2023-03-20] MEDS: BUMETANIDE 2 MG TABLET GT ×2 (08:05→20:07)
[2023-03-20] MEDS: FERROUS SULFATE 220 MG/5 ML ELIXIR 330 MG GT (08:08)
[2023-03-20] MEDS: POTASSIUM CHLORIDE 20 MEQ TAB.ER.PRT GT ×2 (08:08→20:08)
[2023-03-20] MEDS: levETIRAcetam 750 MG TABLET GT ×2 (08:08→20:08)
[2023-03-20] MEDS: VALPROIC ACID 250 MG/5 ML 1000 MG GT (08:08)
[2023-03-20] MEDS: FAMOTIDINE 20 MG TABLET GT (08:08)
[2023-03-20] MEDS: MULTIVITAMIN 1 TAB TABLET GT (08:08)
[2023-03-20] MEDS: ACETAMINOPHEN 325 MG TABLET 650 MG GT (20:09)
[2023-03-21] VITALS (11 sets, daily range): BP systolic 94–112; BP diastolic 60–70; PULSE 60–104; RESP 20–24; TEMP 36.2–36.6; O2SAT 98–100
[2023-03-21] MEDS: IPRATROPIUM/ALBUTEROL 3 ML AMPUL.NEB INH ×4 (00:45→20:01)
[2023-03-21] MEDS: LACTULOSE 10 GM/15 ML SOLUTION GT ×3 (05:10→21:18)
[2023-03-21] MEDS: LEVOTHYROXINE 50 MCG TABLET GT (05:10)
[2023-03-21] MEDS: acetaZOLAMIDE 250 MG TABLET GT ×2 (07:54→20:00)
[2023-03-21] MEDS: BUMETANIDE 2 MG TABLET GT ×2 (07:55→20:01)
[2023-03-21] MEDS: FERROUS SULFATE 220 MG/5 ML ELIXIR 330 MG GT (07:57)
[2023-03-21] MEDS: FAMOTIDINE 20 MG TABLET GT (07:57)
[2023-03-21] MEDS: POTASSIUM CHLORIDE 20 MEQ TAB.ER.PRT GT ×2 (07:58→20:02)
[2023-03-21] MEDS: MULTIVITAMIN 1 TAB TABLET GT (07:58)
[2023-03-21] MEDS: VALPROIC ACID 250 MG/5 ML 1000 MG GT (07:58)
[2023-03-21] MEDS: levETIRAcetam 750 MG TABLET GT ×2 (07:58→20:02)
--- NOTE | 2023-03-21 22:53 | PD.SAPROG ---
Progress Note - SubAcute DIAGNOSIS (1) Chronic respiratory failure with hypoxia: Status: Chronic (2) Dependent on ventilator: Status: Chronic SUBJECTIVE Fever:: none GI:: none Shortness of Breath:: none GI:: no complaints Pain:: none OBJECTIVE Most recent vital signs: Last Vital Signs Temp 97.8 F 03/21/23 17:43 Pulse 96 03/21/23 20:02 Resp 21 H 03/21/23 20:01 BP 105/67 03/21/23 20:02 Pulse Ox 100 03/21/23 20:01 O2 Del Method Mechanical Ventilation 03/21/23 17:43 FiO2 34 03/21/23 20:01 Neurological:: awake Speech:: nods head and appropriate (Sometimes) Answers questions:: sometimes Respiratory:: lungs clear Cardiovascular: RRR Abdomen: soft and nontender Decubitus:: none Tracheostomy:: to ventilator Feeding per:: G tube Complaints:: none ASSESSMENT & PLAN Assessment: Patient with cognitive function delay, ventilator dependent. No distress. Stable condition. Diagnosis and treatment reviewed Plan: Current treatment continued
[2023-03-22] VITALS (11 sets, daily range): BP systolic 101–114; BP diastolic 55–73; PULSE 78–111; RESP 19–24; TEMP 36.3–36.4; O2SAT 96–100
[2023-03-22] MEDS: IPRATROPIUM/ALBUTEROL 3 ML AMPUL.NEB INH ×4 (01:15→20:05)
[2023-03-22] MEDS: ACETAMINOPHEN 325 MG TABLET 650 MG GT (02:01)
[2023-03-22] MEDS: LACTULOSE 10 GM/15 ML SOLUTION GT ×2 (05:41→21:07)
[2023-03-22] MEDS: LEVOTHYROXINE 50 MCG TABLET GT (05:41)
[2023-03-22] MEDS: acetaZOLAMIDE 250 MG TABLET GT ×2 (08:01→21:06)
[2023-03-22] MEDS: BUMETANIDE 2 MG TABLET GT ×2 (08:01→21:06)
[2023-03-22] MEDS: FAMOTIDINE 20 MG TABLET GT (08:02)
[2023-03-22] MEDS: FERROUS SULFATE 220 MG/5 ML ELIXIR 330 MG GT (08:02)
[2023-03-22] MEDS: MULTIVITAMIN 1 TAB TABLET GT (08:03)
[2023-03-22] MEDS: levETIRAcetam 750 MG TABLET GT ×2 (08:03→21:07)
[2023-03-22] MEDS: VALPROIC ACID 250 MG/5 ML 1000 MG GT (08:04)
[2023-03-22] MEDS: POTASSIUM CHLORIDE 20 MEQ TAB.ER.PRT GT ×2 (08:04→21:07)
[2023-03-23] VITALS (11 sets, daily range): BP systolic 94–113; BP diastolic 62–68; PULSE 71–99; RESP 20–26; TEMP 36.1–36.3; O2SAT 96–100
[2023-03-23] MEDS: IPRATROPIUM/ALBUTEROL 3 ML AMPUL.NEB INH ×4 (01:23→18:21)
[2023-03-23] MEDS: LACTULOSE 10 GM/15 ML SOLUTION GT ×3 (05:19→21:13)
[2023-03-23] MEDS: LEVOTHYROXINE 50 MCG TABLET GT (05:20)
[2023-03-23] MEDS: BUMETANIDE 2 MG TABLET GT ×2 (08:18→21:12)
[2023-03-23] MEDS: acetaZOLAMIDE 250 MG TABLET GT ×2 (08:18→21:12)
[2023-03-23] MEDS: MULTIVITAMIN 1 TAB TABLET GT (08:22)
[2023-03-23] MEDS: levETIRAcetam 750 MG TABLET GT ×2 (08:22→21:12)
[2023-03-23] MEDS: FAMOTIDINE 20 MG TABLET GT (08:22)
[2023-03-23] MEDS: FERROUS SULFATE 220 MG/5 ML ELIXIR 330 MG GT (08:22)
[2023-03-23] MEDS: POTASSIUM CHLORIDE 20 MEQ TAB.ER.PRT GT ×2 (08:23→21:13)
[2023-03-23] MEDS: VALPROIC ACID 250 MG/5 ML 1000 MG GT (08:23)
[2023-03-23] MEDS: LOSARTAN 25 MG TABLET GT (21:12)
[2023-03-24] VITALS (12 sets, daily range): BP systolic 85–100; BP diastolic 57–70; PULSE 77–115; RESP 20–24; TEMP 36.1–36.3; O2SAT 96–100
[2023-03-24] MEDS: IPRATROPIUM/ALBUTEROL 3 ML AMPUL.NEB INH ×4 (01:11→18:15)
[2023-03-24] MEDS: LACTULOSE 10 GM/15 ML SOLUTION GT ×3 (05:28→20:19)
[2023-03-24] MEDS: LEVOTHYROXINE 50 MCG TABLET GT (05:28)
[2023-03-24] MEDS: BUMETANIDE 2 MG TABLET GT ×2 (07:57→20:16)
[2023-03-24] MEDS: acetaZOLAMIDE 250 MG TABLET GT ×2 (07:57→20:16)
[2023-03-24] MEDS: FAMOTIDINE 20 MG TABLET GT (07:58)
[2023-03-24] MEDS: FERROUS SULFATE 220 MG/5 ML ELIXIR 330 MG GT (07:59)
[2023-03-24] MEDS: VALPROIC ACID 250 MG/5 ML 1000 MG GT (08:00)
[2023-03-24] MEDS: levETIRAcetam 750 MG TABLET GT ×2 (08:00→20:17)
[2023-03-24] MEDS: POTASSIUM CHLORIDE 20 MEQ TAB.ER.PRT GT ×2 (08:00→20:17)
[2023-03-24] MEDS: MULTIVITAMIN 1 TAB TABLET GT (08:00)
[2023-03-25] VITALS (17 sets, daily range): BP systolic 90–111; BP diastolic 57–67; PULSE 86–123; RESP 20–30; TEMP 36.4–38.6; O2SAT 96–100
[2023-03-25] MEDS: IPRATROPIUM/ALBUTEROL 3 ML AMPUL.NEB INH ×5 (00:45→18:10)
[2023-03-25] MEDS: LEVOTHYROXINE 50 MCG TABLET GT (05:07)
[2023-03-25] MEDS: LACTULOSE 10 GM/15 ML SOLUTION GT ×3 (05:07→22:00)
[2023-03-25] MEDS: acetaZOLAMIDE 250 MG TABLET GT ×2 (09:54→21:00)
[2023-03-25] MEDS: BUMETANIDE 2 MG TABLET GT ×2 (09:56→21:00)
[2023-03-25] MEDS: FAMOTIDINE 20 MG TABLET GT (09:57)
[2023-03-25] MEDS: FERROUS SULFATE 220 MG/5 ML ELIXIR 330 MG GT (09:57)
[2023-03-25] MEDS: levETIRAcetam 750 MG TABLET GT ×2 (09:57→21:00)
[2023-03-25] MEDS: VALPROIC ACID 250 MG/5 ML 1000 MG GT (09:59)
[2023-03-25] MEDS: MULTIVITAMIN 1 TAB TABLET GT (09:59)
[2023-03-25] MEDS: POTASSIUM CHLORIDE 20 MEQ TAB.ER.PRT GT ×2 (09:59→21:00)
[2023-03-25 11:02] LABS: Basophils # (Auto) 0.1 Thou/mm3 (0.0-0.2); Basophils % (Auto) 0 % (0-2.5); Eosinophils % (Auto) 0 % (0-10); Hematocrit 42.5 % (41.0-53.0); Hemoglobin 13.4 g/dL (13.5-16.0); Immature Granulocytes % (Auto) 1 % (0-0); Immature Granulocytes Auto 0.24 Thou/mm3 (0.00-0.00); Lymphocytes # (Auto) 1.1 Thou/mm3 (1.0-4.8); Lymphocytes % (Auto) 3 % (10-50); Mean Corpuscular HGB Conc 31.5 g/dl (31.0-37.0); Mean Corpuscular Hemoglobin 29.8 pg (25.0-35.0); Mean Corpuscular Volume 94 fL (80-100); Monocytes # (Auto) 2.8 Thou/mm3 (0.0-0.8); Monocytes % (Auto) 8 % (0-12); Neutrophils # (Auto) 31.9 Thou/mm3 (1.8-7.7); Neutrophils % (Auto) 88 % (37-80); Nucleated Red Blood Cell % 0 /100 WBC (0); Platelet Count 233 Thou/mm3 (140-440); RDW Standard Deviation 46.1 fL (35.1-43.9)
[2023-03-25 11:12] LABS: White Blood Count 36.2 Thou/mm3 (3.8-10.6)
[2023-03-25 11:22] LABS: Alanine Aminotransferase 19 U/L (10-49); Albumin, Serum 4.2 gm/dL (3.4-4.8); Albumin/Globulin Ratio 1.6 (1.2-2.2); Alkaline Phosphatase 102 U/L (46-116); Anion Gap 11 (7-16); Aspartate Amino Transferase < 8 U/L (0-34); BUN/Creatinine Ratio 27 Ratio (12-20); Bilirubin,Total 0.6 mg/dL (0.3-1.2); Blood Urea Nitrogen 38 mg/dL (9-23); Calcium 9.2 mg/dL (8.3-10.6); Calcium (Corrected) 9.2 mg/dL (8.5-10.1); Carbon Dioxide 26.1 mMol/L (20.0-31.0); Chloride 103 mMol/L (98-107); Creatinine (Component) 1.4 mg/dL (0.6-1.3); Estimated Creatinine Clearance 57.2 mL/min (>60); Globulin 2.7 gm/dL (2.3-3.5); Glucose 176 mg/dL (74-106); Osmolality,Calculated 292 (275-295); Potassium 4.1 mMol/L (3.4-5.1); Procalcitonin 0.74 ng/ml (0.0-0.49); Sodium 140 mMol/L (136-145); Total Protein 6.9 gm/dL (5.7-8.2); eGFR 57 See Note
--- NOTE | 2023-03-25 11:30 | PD.SAPROG ---
Progress Note - SubAcute DIAGNOSIS (1) Chronic respiratory failure with hypoxia: Status: Chronic (2) Dependent on ventilator: Status: Chronic SUBJECTIVE Fever:: none GI:: none Shortness of Breath:: none GI:: no complaints Pain:: none OBJECTIVE Most recent vital signs: Last Vital Signs Temp 97.3 F 03/28/23 11:40 Pulse 78 03/28/23 13:20 Resp 21 H 03/28/23 13:20 BP 99/63 03/28/23 11:40 Pulse Ox 97 03/28/23 13:20 O2 Del Method Mechanical Ventilation 03/27/23 18:00 FiO2 24 03/28/23 13:20 Neurological:: awake Speech:: nods head and appropriate (Sometimes) Answers questions:: sometimes Respiratory:: lungs clear Cardiovascular: RRR Abdomen: soft and nontender Decubitus:: none Tracheostomy:: to ventilator Feeding per:: G tube Complaints:: none ASSESSMENT & PLAN Assessment: Patient with cognitive function delay, ventilator dependent. No distress. Stable condition. Diagnosis and treatment reviewed Developed moderate grade fever a few days ago with leukocytosis. Started on Rocephin and Levaquin for 5 days. Cultures pending. Patient responded well and became afebrile over 48 hours. Monitoring progress Plan: Current treatment continued
[2023-03-25 12:01] LABS: Collection Type, Urine Catheter
[2023-03-25 12:06] LABS: Bacteria,Urine Rare; Bilirubin,Urine Negative (Negative); Blood,Urine Negative (Negative); Clarity,Urine Clear (Clear/Hazy); Color,Urine Yellow (Lt Yel-Yel); Glucose, Urine Negative (Negative); Ketones,Urine Negative (Negative); Leukocyte Esterase,Urine Positive (Negative); Nitrite,Urine Negative (Negative); Protein,Urine Negative (Neg - Trace); RBC,Urine 2 /hpf (0-3); Specific Gravity,Urine 1.012 (1.001-1.035); Squamous Epithelial Cell,Urine < 1 /hpf (0-5); Urobilinogen,Urine Negative mg/dL (0.0-1.0); WBC,Urine 12 /hpf (0-5)
[2023-03-25 13:07] LABS: Path Review Blood Smear Sent to Pathologist
--- NOTE | 2023-03-25 13:57 | PC.NURSE ---
IP note: At 1340 spoke with Pastora SABILLON regarding current vital sign status. Continues to be febrile at 101, tachycardia at 110 - 120, no BP available at present but has been below usual norm of 100/60 -110 /80; no desaturation noted presently. All labs drawn for Febrile protocol with WBC's of 36.2 and Darya LLOYD aware of results of Procalcitonin of 0.74. 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 Resident placed on Levaquin 500mg PGT QD x 10days and Ceftriaxone 1Gm IVP daily x 10 days, pending further definitive lab results. Resident placed in Droplet and Contact precautions pending further definitive lab results. Angelito Valencia RN Charge orders Febrile protocol and labs at approximately 1015 today. Vital signs at 1400; T100,118HR.
--- NOTE | 2023-03-25 14:07 | PC.NURSE ---
Addendum entered by La Valencia RN 03/25/23 14:14: Pending ABT to be pulled from [facility], this nurse has called [facility] twice to place ABT in [facility] profile, current temp. is 100.0F, resident in room resting, call light within reach, no s/s of distress at this time. Original Note: Resident noted to be hot to the touch at 0830, vital signs taken, temp. noted at 101.4 F rectally, cooling measures done, temp rechecked at 1020, temp. was 101.0F, fever protocol initiated, this nurse received a red call alert for high WBC, made aware, new orders obtained, Rocephin 1gm IV daily for elevated WBC x5 days re-eval and Levaquin 500mg via PGT daily for elevated WBC x5 days, re-eval. 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
[2023-03-25 14:51] LABS: COVID-19 Antigen (In-House) Negative (Negative)
[2023-03-25] MEDS: CEFTRIAXONE 1 GM VIAL.PORT IVP (15:04)
[2023-03-25] MEDS: levoFLOXacin 500 MG TABLET GT (15:05)
[2023-03-25] MEDS: ACETAMINOPHEN 325 MG TABLET 650 MG GT (15:05)
--- NOTE | 2023-03-25 15:05 | PC.NURSE ---
Rocephin IV and Levaquin tab pulled from [facility], first dose of Rocephin IV given by this nurse, no adverse side effects noted, resident in room resting, call light within reach, HOB elevated.
[2023-03-25 15:16] LABS: Influenza A Ag Negative; Influenza B Ag Negative
--- NOTE | 2023-03-25 16:02 | PC.NURSE ---
Dr. Lackey made aware of elevated BUN and creatinine levels, new order was obtained to give 200ml of extra water Qshift x2 days.
[2023-03-26] VITALS (10 sets, daily range): BP systolic 86–104; BP diastolic 54–68; PULSE 88–105; RESP 20–24; TEMP 36.1–36.4; O2SAT 94–100
[2023-03-26] MEDS: IPRATROPIUM/ALBUTEROL 3 ML AMPUL.NEB INH ×4 (00:45→18:00)
[2023-03-26] MEDS: LACTULOSE 10 GM/15 ML SOLUTION GT ×3 (05:51→21:15)
[2023-03-26] MEDS: acetaZOLAMIDE 250 MG TABLET GT ×2 (08:34→20:01)
[2023-03-26] MEDS: BUMETANIDE 2 MG TABLET GT ×2 (08:34→20:01)
[2023-03-26] MEDS: FERROUS SULFATE 220 MG/5 ML ELIXIR 330 MG GT (08:36)
[2023-03-26] MEDS: FAMOTIDINE 20 MG TABLET GT (08:36)
[2023-03-26] MEDS: levoFLOXacin 500 MG TABLET GT (08:37)
[2023-03-26] MEDS: levETIRAcetam 750 MG TABLET GT ×2 (08:37→20:01)
[2023-03-26] MEDS: MULTIVITAMIN 1 TAB TABLET GT (08:38)
[2023-03-26] MEDS: POTASSIUM CHLORIDE 20 MEQ TAB.ER.PRT GT ×2 (08:38→20:01)
[2023-03-26] MEDS: VALPROIC ACID 250 MG/5 ML 1000 MG GT (08:39)
[2023-03-26] MEDS: CEFTRIAXONE 1 GM VIAL.PORT IVP (09:00)
--- NOTE | 2023-03-26 15:37 | PC.SS ---
Room visit: Resident is laying in bed with head of the bed elevated with call light properly placed. Resident is well groomed showing no signs of distress. Resident continues to be on ventilator and total care. Resident will remain in current care as he is unable to DC to lower level of care. Resident will continue to receive daily room visits from [facility].
--- NOTE | 2023-03-26 16:04 | PC.NURSE ---
Resident currently on Rocephin 1gram daily for elevated WBC, 24G IV placed to left FA, no infiltration noted, no s/s of adverse side effects, resident aferile, resident in room resting, call light within reach, HOB elevated.
--- NOTE | 2023-03-26 18:12 | PC.NURSE ---
Resident on levofloxacin 500mg tab daily for elevated WBC's,elevated temp, no adverse reactions noted, afebrile, continue to monitor.
[2023-03-26] MEDS: ACETAMINOPHEN 325 MG TABLET 650 MG GT (20:00)
[2023-03-27] VITALS (11 sets, daily range): BP systolic 91–103; BP diastolic 54–67; PULSE 72–106; RESP 20–25; TEMP 36.4–36.6; O2SAT 99–100
[2023-03-27] MEDS: IPRATROPIUM/ALBUTEROL 3 ML AMPUL.NEB INH ×4 (00:40→19:54)
[2023-03-27] MEDS: LACTULOSE 10 GM/15 ML SOLUTION GT ×2 (05:20→22:24)
[2023-03-27] MEDS: LEVOTHYROXINE 50 MCG TABLET GT (05:20)
[2023-03-27] MEDS: acetaZOLAMIDE 250 MG TABLET GT ×2 (08:18→20:02)
[2023-03-27] MEDS: BUMETANIDE 2 MG TABLET GT ×2 (08:19→20:02)
[2023-03-27] MEDS: FAMOTIDINE 20 MG TABLET GT (08:20)
[2023-03-27] MEDS: levETIRAcetam 750 MG TABLET GT ×2 (08:21→20:03)
[2023-03-27] MEDS: levoFLOXacin 500 MG TABLET GT (08:21)
[2023-03-27] MEDS: MULTIVITAMIN 1 TAB TABLET GT (08:22)
[2023-03-27] MEDS: VALPROIC ACID 250 MG/5 ML 1000 MG GT (08:23)
[2023-03-27] MEDS: POTASSIUM CHLORIDE 20 MEQ TAB.ER.PRT GT ×2 (08:23→20:04)
[2023-03-27] MEDS: ACETAMINOPHEN 325 MG TABLET 650 MG GT ×2 (08:26→20:04)
[2023-03-27] MEDS: FERROUS SULFATE 220 MG/5 ML ELIXIR 330 MG GT (09:00)
[2023-03-27] MEDS: CEFTRIAXONE 1 GM VIAL.PORT IVP (09:00)
[2023-03-28] VITALS (12 sets, daily range): BP systolic 97–127; BP diastolic 57–73; PULSE 69–98; RESP 20–24; TEMP 36.1–36.4; O2SAT 96–100
[2023-03-28] MEDS: IPRATROPIUM/ALBUTEROL 3 ML AMPUL.NEB INH ×4 (00:55→19:20)
[2023-03-28] MEDS: LACTULOSE 10 GM/15 ML SOLUTION GT ×3 (05:05→21:22)
[2023-03-28] MEDS: LEVOTHYROXINE 50 MCG TABLET GT (05:05)
[2023-03-28] MEDS: acetaZOLAMIDE 250 MG TABLET GT ×2 (08:12→21:20)
[2023-03-28] MEDS: BUMETANIDE 2 MG TABLET GT ×2 (08:12→21:20)
[2023-03-28] MEDS: FAMOTIDINE 20 MG TABLET GT (08:14)
[2023-03-28] MEDS: FERROUS SULFATE 220 MG/5 ML ELIXIR 330 MG GT (08:16)
[2023-03-28] MEDS: levETIRAcetam 750 MG TABLET GT ×2 (08:16→21:21)
[2023-03-28] MEDS: levoFLOXacin 500 MG TABLET GT (08:17)
[2023-03-28] MEDS: POTASSIUM CHLORIDE 20 MEQ TAB.ER.PRT GT ×2 (08:17→21:22)
[2023-03-28] MEDS: MULTIVITAMIN 1 TAB TABLET GT (08:18)
[2023-03-28] MEDS: VALPROIC ACID 250 MG/5 ML 1000 MG GT (08:19)
[2023-03-28] MEDS: CEFTRIAXONE 1 GM VIAL.PORT IVP (09:00)
--- NOTE | 2023-03-28 11:17 | PC.NURSE ---
Mr. Javier remains on antibiotic therapy. NO adverse reactions noted from antibiotic. Remains a febrile cultures still pending.
--- NOTE | 2023-03-28 13:05 | PC.NURSE ---
Notified and report given to MD for recent sputum cultures. Cultures showed Serratia Marcescens and Proteus Mirabillis. MD added x 2 more doses of rocephin 1gm and Levaquin 500mg. Carried out new order.
[2023-03-29] VITALS (13 sets, daily range): BP systolic 102–116; BP diastolic 59–74; PULSE 72–105; RESP 20–26; TEMP 36.3–36.7; O2SAT 94–100
[2023-03-29] MEDS: IPRATROPIUM/ALBUTEROL 3 ML AMPUL.NEB INH ×4 (00:55→19:28)
[2023-03-29] MEDS: LEVOTHYROXINE 50 MCG TABLET GT (05:12)
[2023-03-29] MEDS: LACTULOSE 10 GM/15 ML SOLUTION GT ×3 (05:12→22:33)
[2023-03-29] MEDS: CEFTRIAXONE 1 GM VIAL.PORT IVP (08:58)
[2023-03-29] MEDS: acetaZOLAMIDE 250 MG TABLET GT ×2 (09:09→22:31)
[2023-03-29] MEDS: BUMETANIDE 2 MG TABLET GT ×2 (09:10→22:31)
[2023-03-29] MEDS: FAMOTIDINE 20 MG TABLET GT (09:11)
[2023-03-29] MEDS: FERROUS SULFATE 220 MG/5 ML ELIXIR 330 MG GT (09:11)
[2023-03-29] MEDS: levETIRAcetam 750 MG TABLET GT ×2 (09:12→22:30)
[2023-03-29] MEDS: levoFLOXacin 500 MG TABLET GT (09:13)
[2023-03-29] MEDS: POTASSIUM CHLORIDE 20 MEQ TAB.ER.PRT GT ×2 (09:13→22:30)
[2023-03-29] MEDS: MULTIVITAMIN 1 TAB TABLET GT (09:13)
[2023-03-29] MEDS: VALPROIC ACID 250 MG/5 ML 1000 MG GT (09:14)
--- NOTE | 2023-03-29 13:04 | PC.NURSE ---
Resident's urine c & s Streptococcus group and noted to be resistant with Levaquin and Rocephin that he's on at this time. Resident remains stable at this time and afebrile. Respiration even and labored. No s/s of pain or discomfort. Called Dr Lackey and made aware , urine c & s result is colonized per MD. Received an order to do CBC to follow up elevated WBC result.
[2023-03-29 14:12] LABS: Basophils % (Auto) 0 % (0-2.5); Eosinophils # (Auto) 0.1 Thou/mm3 (0.0-0.5); Eosinophils % (Auto) 1 % (0-10); Hematocrit 37.7 % (41.0-53.0); Hemoglobin 11.9 g/dL (13.5-16.0); Immature Granulocytes % (Auto) 1 % (0-0); Immature Granulocytes Auto 0.08 Thou/mm3 (0.00-0.00); Lymphocytes # (Auto) 1.9 Thou/mm3 (1.0-4.8); Lymphocytes % (Auto) 18 % (10-50); Mean Corpuscular HGB Conc 31.6 g/dl (31.0-37.0); Mean Corpuscular Hemoglobin 29.5 pg (25.0-35.0); Mean Corpuscular Volume 93 fL (80-100); Monocytes # (Auto) 0.8 Thou/mm3 (0.0-0.8); Monocytes % (Auto) 7 % (0-12); Neutrophils # (Auto) 7.5 Thou/mm3 (1.8-7.7); Neutrophils % (Auto) 72 % (37-80); Nucleated Red Blood Cell % 0 /100 WBC (0); Platelet Count 208 Thou/mm3 (140-440); RDW Standard Deviation 43.6 fL (35.1-43.9); Red Blood Count 4.04 Miln/mm3 (4.50-5.90); White Blood Count 10.4 Thou/mm3 (3.8-10.6)
[2023-03-30] VITALS (11 sets, daily range): BP systolic 97–120; BP diastolic 64–74; PULSE 86–112; RESP 19–28; TEMP 36.3–36.6; O2SAT 98–99
[2023-03-30] MEDS: IPRATROPIUM/ALBUTEROL 3 ML AMPUL.NEB INH ×4 (00:22→19:26)
[2023-03-30] MEDS: LACTULOSE 10 GM/15 ML SOLUTION GT ×3 (05:04→21:15)
[2023-03-30] MEDS: LEVOTHYROXINE 50 MCG TABLET GT (05:07)
[2023-03-30] MEDS: acetaZOLAMIDE 250 MG TABLET GT ×2 (09:19→20:28)
[2023-03-30] MEDS: BUMETANIDE 2 MG TABLET GT ×2 (09:21→20:28)
[2023-03-30] MEDS: FAMOTIDINE 20 MG TABLET GT (09:21)
[2023-03-30] MEDS: levoFLOXacin 500 MG TABLET GT (09:22)
[2023-03-30] MEDS: FERROUS SULFATE 220 MG/5 ML ELIXIR 330 MG GT (09:22)
[2023-03-30] MEDS: levETIRAcetam 750 MG TABLET GT ×2 (09:22→20:32)
[2023-03-30] MEDS: POTASSIUM CHLORIDE 20 MEQ TAB.ER.PRT GT ×2 (09:23→20:33)
[2023-03-30] MEDS: MULTIVITAMIN 1 TAB TABLET GT (09:23)
[2023-03-30] MEDS: VALPROIC ACID 250 MG/5 ML 1000 MG GT (09:24)
[2023-03-30] MEDS: CEFTRIAXONE 1 GM VIAL.PORT IVP (09:49)
[2023-03-31] VITALS (13 sets, daily range): BP systolic 90–119; BP diastolic 55–69; PULSE 76–97; RESP 20–24; TEMP 36.1–36.6; O2SAT 96–100
[2023-03-31] MEDS: LACTULOSE 10 GM/15 ML SOLUTION GT ×3 (05:05→21:01)
[2023-03-31] MEDS: LEVOTHYROXINE 50 MCG TABLET GT (05:06)
[2023-03-31] MEDS: IPRATROPIUM/ALBUTEROL 3 ML AMPUL.NEB INH ×3 (07:50→20:14)
[2023-03-31] MEDS: CEFTRIAXONE 1 GM VIAL.PORT IVP (09:00)
[2023-03-31] MEDS: acetaZOLAMIDE 250 MG TABLET GT ×2 (09:39→20:10)
[2023-03-31] MEDS: BUMETANIDE 2 MG TABLET GT ×2 (09:39→20:10)
[2023-03-31] MEDS: FAMOTIDINE 20 MG TABLET GT (09:41)
[2023-03-31] MEDS: levETIRAcetam 750 MG TABLET GT ×2 (09:42→20:12)
[2023-03-31] MEDS: FERROUS SULFATE 220 MG/5 ML ELIXIR 330 MG GT (09:42)
[2023-03-31] MEDS: POTASSIUM CHLORIDE 20 MEQ TAB.ER.PRT GT ×2 (09:44→20:13)
[2023-03-31] MEDS: MULTIVITAMIN 1 TAB TABLET GT (09:44)
[2023-03-31] MEDS: VALPROIC ACID 250 MG/5 ML 1000 MG GT (09:44)
[2023-03-31] MEDS: levoFLOXacin 500 MG TABLET GT (09:45)
--- NOTE | 2023-03-31 22:40 | PD.SAPROG ---
Progress Note - SubAcute DIAGNOSIS (1) Chronic respiratory failure with hypoxia: Status: Chronic (2) Dependent on ventilator: Status: Chronic SUBJECTIVE Fever:: none GI:: none Shortness of Breath:: none GI:: no complaints Pain:: none OBJECTIVE Most recent vital signs: Last Vital Signs Temp 98.0 F 04/04/23 18:00 Pulse 108 H 04/04/23 20:40 Resp 20 04/04/23 19:25 BP 108/69 04/04/23 20:40 Pulse Ox 97 04/04/23 19:25 O2 Del Method Mechanical Ventilation 04/03/23 05:48 FiO2 40 04/04/23 19:25 Neurological:: awake Speech:: nods head and appropriate (Sometimes) Answers questions:: sometimes Respiratory:: lungs clear Cardiovascular: RRR Abdomen: soft and nontender Decubitus:: none Tracheostomy:: to ventilator Feeding per:: G tube Complaints:: none ASSESSMENT & PLAN Assessment: Patient with cognitive function delay, ventilator dependent. No distress. Stable condition. Diagnosis and treatment reviewed Developed moderate grade fever a few days ago with leukocytosis. Started on Rocephin and Levaquin for 5 days. Patient responded well and became afebrile over 48 hours. Completed Antibiotics and now asymptomatic Plan: Current treatment continued
[2023-04-01] VITALS (11 sets, daily range): BP systolic 94–134; BP diastolic 57–81; PULSE 67–97; RESP 18–24; TEMP 36.2–36.8; O2SAT 97–100
[2023-04-01] MEDS: IPRATROPIUM/ALBUTEROL 3 ML AMPUL.NEB INH ×3 (01:24→13:50)
[2023-04-01] MEDS: LEVOTHYROXINE 50 MCG TABLET GT (05:26)
[2023-04-01] MEDS: acetaZOLAMIDE 250 MG TABLET GT ×2 (08:05→20:02)
[2023-04-01] MEDS: BUMETANIDE 2 MG TABLET GT ×2 (08:05→20:03)
[2023-04-01] MEDS: FAMOTIDINE 20 MG TABLET GT (08:06)
[2023-04-01] MEDS: levETIRAcetam 750 MG TABLET GT ×2 (08:08→20:05)
[2023-04-01] MEDS: MULTIVITAMIN 1 TAB TABLET GT (08:08)
[2023-04-01] MEDS: FERROUS SULFATE 220 MG/5 ML ELIXIR 330 MG GT (08:08)
[2023-04-01] MEDS: VALPROIC ACID 250 MG/5 ML 1000 MG GT (08:09)
[2023-04-01] MEDS: POTASSIUM CHLORIDE 20 MEQ TAB.ER.PRT GT ×2 (08:09→20:05)
[2023-04-01] MEDS: LACTULOSE 10 GM/15 ML SOLUTION GT (22:00)
[2023-04-02] VITALS (12 sets, daily range): BP systolic 94–119; BP diastolic 56–74; PULSE 58–101; RESP 20–26; TEMP 36.1–36.6; O2SAT 95–100
[2023-04-02] MEDS: IPRATROPIUM/ALBUTEROL 3 ML AMPUL.NEB INH ×4 (01:08→18:57)
[2023-04-02] MEDS: LEVOTHYROXINE 50 MCG TABLET GT (05:49)
[2023-04-02] MEDS: LACTULOSE 10 GM/15 ML SOLUTION GT ×3 (05:49→20:24)
[2023-04-02] MEDS: acetaZOLAMIDE 250 MG TABLET GT ×2 (09:12→20:23)
[2023-04-02] MEDS: BUMETANIDE 2 MG TABLET GT ×2 (09:12→20:23)
[2023-04-02] MEDS: FAMOTIDINE 20 MG TABLET GT (09:13)
[2023-04-02] MEDS: FERROUS SULFATE 220 MG/5 ML ELIXIR 330 MG GT (09:13)
[2023-04-02] MEDS: levETIRAcetam 750 MG TABLET GT ×2 (09:14→20:24)
[2023-04-02] MEDS: POTASSIUM CHLORIDE 20 MEQ TAB.ER.PRT GT ×2 (09:14→20:24)
[2023-04-02] MEDS: MULTIVITAMIN 1 TAB TABLET GT (09:14)
[2023-04-02] MEDS: VALPROIC ACID 250 MG/5 ML 1000 MG GT (09:15)
[2023-04-02] MEDS: guaiFENesin Liq 100 MG/5 ML LIQUID GT (09:17)
--- NOTE | 2023-04-02 15:46 | PC.SS ---
Room visit: Resident is laying in bed with head of the bed elevated with call light properly placed. Resident is well groomed with no signs of distress. Resident continues to get daily room visits, not showing any changes in mood or behavior. Resident will remain in current care as there are no changes in care or condition. Resident will continue to be evaluated as appropriate for DC to lower level of care.
[2023-04-02] MEDS: CARVEDILOL 3.125 MG TABLET GT (20:24)
[2023-04-02] MEDS: LOSARTAN 25 MG TABLET GT (20:24)
[2023-04-03] VITALS (12 sets, daily range): BP systolic 95–134; BP diastolic 59–79; PULSE 61–112; RESP 19–25; TEMP 36.2–36.9; O2SAT 95–100
[2023-04-03] MEDS: IPRATROPIUM/ALBUTEROL 3 ML AMPUL.NEB INH ×4 (00:38→19:20)
[2023-04-03] MEDS: LACTULOSE 10 GM/15 ML SOLUTION GT ×3 (05:17→20:17)
[2023-04-03] MEDS: LEVOTHYROXINE 50 MCG TABLET GT (05:18)
[2023-04-03] MEDS: acetaZOLAMIDE 250 MG TABLET GT ×2 (08:09→20:15)
[2023-04-03] MEDS: FAMOTIDINE 20 MG TABLET GT (08:10)
[2023-04-03] MEDS: BUMETANIDE 2 MG TABLET GT ×2 (08:10→20:15)
[2023-04-03] MEDS: FERROUS SULFATE 220 MG/5 ML ELIXIR 330 MG GT (08:10)
[2023-04-03] MEDS: CARVEDILOL 3.125 MG TABLET GT ×2 (08:10→20:16)
[2023-04-03] MEDS: MULTIVITAMIN 1 TAB TABLET GT (08:12)
[2023-04-03] MEDS: POTASSIUM CHLORIDE 20 MEQ TAB.ER.PRT GT ×2 (08:13→20:16)
[2023-04-03] MEDS: VALPROIC ACID 250 MG/5 ML 1000 MG GT (08:13)
[2023-04-03] MEDS: ACETAMINOPHEN 325 MG TABLET 650 MG GT (08:14)
[2023-04-03] MEDS: levETIRAcetam 750 MG TABLET GT ×2 (08:15→20:16)
[2023-04-04] VITALS (12 sets, daily range): BP systolic 97–138; BP diastolic 66–81; PULSE 81–114; RESP 20–26; TEMP 36.4–36.8; O2SAT 94–100
[2023-04-04] MEDS: IPRATROPIUM/ALBUTEROL 3 ML AMPUL.NEB INH ×4 (01:30→19:25)
[2023-04-04] MEDS: guaiFENesin Liq 100 MG/5 ML LIQUID 300 MG GT (02:48)
[2023-04-04] MEDS: LEVOTHYROXINE 50 MCG TABLET GT (05:01)
[2023-04-04] MEDS: LACTULOSE 10 GM/15 ML SOLUTION GT ×3 (05:01→21:06)
[2023-04-04] MEDS: acetaZOLAMIDE 250 MG TABLET GT ×2 (09:13→20:37)
[2023-04-04] MEDS: BUMETANIDE 2 MG TABLET GT ×2 (09:13→20:37)
[2023-04-04] MEDS: CARVEDILOL 3.125 MG TABLET GT (09:14)
[2023-04-04] MEDS: FAMOTIDINE 20 MG TABLET GT (09:14)
[2023-04-04] MEDS: FERROUS SULFATE 220 MG/5 ML ELIXIR 330 MG GT (09:14)
[2023-04-04] MEDS: VALPROIC ACID 250 MG/5 ML 1000 MG GT (09:15)
[2023-04-04] MEDS: MULTIVITAMIN 1 TAB TABLET GT (09:15)
[2023-04-04] MEDS: POTASSIUM CHLORIDE 20 MEQ TAB.ER.PRT GT ×2 (09:15→20:41)
[2023-04-04] MEDS: levETIRAcetam 750 MG TABLET GT ×2 (09:15→20:38)
--- NOTE | 2023-04-04 22:42 | PD.SAPROG ---
Progress Note - SubAcute DIAGNOSIS (1) Chronic respiratory failure with hypoxia: Status: Chronic (2) Dependent on ventilator: Status: Chronic SUBJECTIVE Fever:: none GI:: none Shortness of Breath:: none GI:: no complaints Pain:: none OBJECTIVE Most recent vital signs: Last Vital Signs Temp 98.0 F 04/04/23 18:00 Pulse 108 H 04/04/23 20:40 Resp 20 04/04/23 19:25 BP 108/69 04/04/23 20:40 Pulse Ox 97 04/04/23 19:25 O2 Del Method Mechanical Ventilation 04/03/23 05:48 FiO2 40 04/04/23 19:25 Neurological:: awake Speech:: nods head and appropriate (Sometimes) Answers questions:: sometimes Respiratory:: lungs clear Cardiovascular: RRR Abdomen: soft and nontender Decubitus:: none Tracheostomy:: to ventilator Feeding per:: G tube Complaints:: none ASSESSMENT & PLAN Assessment: Patient with cognitive function delay, ventilator dependent. No distress. Stable condition. Diagnosis and treatment reviewed Plan: Current treatment continued
[2023-04-05] VITALS (11 sets, daily range): BP systolic 92–115; BP diastolic 63–76; PULSE 76–99; RESP 20–23; TEMP 36.1–36.3; O2SAT 96–100
[2023-04-05] MEDS: IPRATROPIUM/ALBUTEROL 3 ML AMPUL.NEB INH ×4 (00:50→21:11)
[2023-04-05] MEDS: LACTULOSE 10 GM/15 ML SOLUTION GT ×3 (05:11→21:31)
[2023-04-05] MEDS: acetaZOLAMIDE 250 MG TABLET GT ×2 (09:43→20:16)
[2023-04-05] MEDS: BUMETANIDE 2 MG TABLET GT ×2 (09:44→20:17)
[2023-04-05] MEDS: FAMOTIDINE 20 MG TABLET GT (09:45)
[2023-04-05] MEDS: levETIRAcetam 750 MG TABLET GT ×2 (09:46→20:18)
[2023-04-05] MEDS: VALPROIC ACID 250 MG/5 ML 1000 MG GT (09:55)
[2023-04-05] MEDS: POTASSIUM CHLORIDE 20 MEQ TAB.ER.PRT GT ×2 (09:55→20:19)
[2023-04-05] MEDS: MULTIVITAMIN 1 TAB TABLET GT (09:55)
[2023-04-06] VITALS (12 sets, daily range): BP systolic 105–144; BP diastolic 49–80; PULSE 59–110; RESP 20–24; TEMP 36–36.6; O2SAT 96–100
[2023-04-06] MEDS: IPRATROPIUM/ALBUTEROL 3 ML AMPUL.NEB INH ×4 (01:08→19:30)
[2023-04-06] MEDS: LACTULOSE 10 GM/15 ML SOLUTION GT ×3 (05:13→21:12)
--- NOTE | 2023-04-06 05:54 | PC.NURSE ---
Resident was found with trach almost out, resident had been coughing and moving arms. Unable to put back in same trach, new trach from head of bed inserted with minimal difficulty, some bleeding noted to trach site, trach replaced at head of bed by RT.
[2023-04-06] MEDS: acetaZOLAMIDE 250 MG TABLET GT ×2 (08:07→20:54)
[2023-04-06] MEDS: BUMETANIDE 2 MG TABLET GT ×2 (08:07→20:54)
[2023-04-06] MEDS: CARVEDILOL 3.125 MG TABLET GT ×2 (08:08→20:55)
[2023-04-06] MEDS: FAMOTIDINE 20 MG TABLET GT (08:09)
[2023-04-06] MEDS: FERROUS SULFATE 220 MG/5 ML ELIXIR 330 MG GT (08:09)
[2023-04-06] MEDS: MULTIVITAMIN 1 TAB TABLET GT (08:10)
[2023-04-06] MEDS: levETIRAcetam 750 MG TABLET GT ×2 (08:10→20:55)
[2023-04-06] MEDS: VALPROIC ACID 250 MG/5 ML 1000 MG GT (08:11)
[2023-04-06] MEDS: POTASSIUM CHLORIDE 20 MEQ TAB.ER.PRT GT ×2 (08:11→20:56)
[2023-04-06] MEDS: LOSARTAN 25 MG TABLET GT (20:56)
[2023-04-07] VITALS (11 sets, daily range): BP systolic 96–137; BP diastolic 61–88; PULSE 62–96; RESP 17–22; TEMP 36.1–36.4; O2SAT 96–100
[2023-04-07] MEDS: IPRATROPIUM/ALBUTEROL 3 ML AMPUL.NEB INH ×4 (01:13→19:26)
[2023-04-07] MEDS: LACTULOSE 10 GM/15 ML SOLUTION GT ×3 (05:12→21:39)
[2023-04-07] MEDS: acetaZOLAMIDE 250 MG TABLET GT ×2 (08:02→20:35)
[2023-04-07] MEDS: CARVEDILOL 3.125 MG TABLET GT ×2 (08:03→20:36)
[2023-04-07] MEDS: BUMETANIDE 2 MG TABLET GT ×2 (08:03→20:35)
[2023-04-07] MEDS: MULTIVITAMIN 1 TAB TABLET GT (08:04)
[2023-04-07] MEDS: FERROUS SULFATE 220 MG/5 ML ELIXIR 330 MG GT (08:04)
[2023-04-07] MEDS: FAMOTIDINE 20 MG TABLET GT (08:04)
[2023-04-07] MEDS: levETIRAcetam 750 MG TABLET GT ×2 (08:04→20:37)
[2023-04-07] MEDS: VALPROIC ACID 250 MG/5 ML 1000 MG GT (08:05)
[2023-04-07] MEDS: POTASSIUM CHLORIDE 20 MEQ TAB.ER.PRT GT ×2 (08:05→20:37)
--- NOTE | 2023-04-07 11:58 | PC.SS ---
Room visit: Resident is laying in bed with head of the bed elevated with call light properly placed with no signs of distress. Resident is well groomed and appears comfortable. Resident will continue to receive daily room visits as there are no changes in care or condition.
--- NOTE | 2023-04-07 12:29 | PC.SS ---
IDT Note: 04/06/23Resident father Ryley Javier attended meeting via telephone. This SSD sent invite to [facility] counselor Georgi Zamora with no response. Team met and answered Jeremi's questions. Jeremi was pleased with meeting, no further questions for the team and no concerns. Resident has no changes to report, care will remain the same.
[2023-04-08] VITALS (12 sets, daily range): BP systolic 99–114; BP diastolic 58–88; PULSE 79–97; RESP 20–24; TEMP 36.3–37; O2SAT 97–100
[2023-04-08] MEDS: LACTULOSE 10 GM/15 ML SOLUTION GT ×3 (05:32→21:16)
[2023-04-08] MEDS: IPRATROPIUM/ALBUTEROL 3 ML AMPUL.NEB INH ×3 (07:31→19:48)
[2023-04-08] MEDS: acetaZOLAMIDE 250 MG TABLET GT ×2 (08:29→21:12)
[2023-04-08] MEDS: BUMETANIDE 2 MG TABLET GT ×2 (08:29→21:14)
[2023-04-08] MEDS: CARVEDILOL 3.125 MG TABLET GT (08:29)
[2023-04-08] MEDS: POTASSIUM CHLORIDE 20 MEQ TAB.ER.PRT GT ×2 (08:30→21:16)
[2023-04-08] MEDS: FERROUS SULFATE 220 MG/5 ML ELIXIR 330 MG GT (08:30)
[2023-04-08] MEDS: levETIRAcetam 750 MG TABLET GT ×2 (08:30→21:15)
[2023-04-08] MEDS: FAMOTIDINE 20 MG TABLET GT (08:30)
[2023-04-08] MEDS: MULTIVITAMIN 1 TAB TABLET GT (08:30)
[2023-04-08] MEDS: VALPROIC ACID 250 MG/5 ML 1000 MG GT (08:31)
--- NOTE | 2023-04-08 10:58 | CHAP ---
Patient was sleeping. Prayed a silent prayer near the bedside.
--- NOTE | 2023-04-08 21:29 | PD.SAPROG ---
Progress Note - SubAcute DIAGNOSIS (1) Chronic respiratory failure with hypoxia: Status: Chronic (2) Dependent on ventilator: Status: Chronic SUBJECTIVE Fever:: none GI:: none Shortness of Breath:: none GI:: no complaints Pain:: none OBJECTIVE Most recent vital signs: Last Vital Signs Temp 97.3 F 04/08/23 17:44 Pulse 88 04/08/23 21:14 Resp 20 04/08/23 19:48 BP 106/76 04/08/23 21:16 Pulse Ox 100 04/08/23 19:48 O2 Del Method Mechanical Ventilation 04/08/23 17:44 FiO2 32 04/08/23 19:48 Neurological:: awake Speech:: nods head and appropriate (Sometimes) Answers questions:: sometimes Respiratory:: lungs clear Cardiovascular: RRR Abdomen: soft and nontender Decubitus:: none Tracheostomy:: to ventilator Feeding per:: G tube Complaints:: none ASSESSMENT & PLAN Assessment: Patient with cognitive function delay, ventilator dependent. No distress. Stable condition. Diagnosis and treatment reviewed. Pt does not tolerate weaning from Ventilator. Plan: Current treatment continued
[2023-04-09] VITALS (10 sets, daily range): BP systolic 98–149; BP diastolic 64–80; PULSE 75–103; RESP 18–26; TEMP 36.3–37.2; O2SAT 99–100
[2023-04-09] MEDS: IPRATROPIUM/ALBUTEROL 3 ML AMPUL.NEB INH ×4 (01:05→19:36)
[2023-04-09] MEDS: LACTULOSE 10 GM/15 ML SOLUTION GT ×3 (05:25→20:18)
[2023-04-09] MEDS: levETIRAcetam 750 MG TABLET GT ×2 (08:21→20:18)
[2023-04-09] MEDS: acetaZOLAMIDE 250 MG TABLET GT ×2 (08:21→20:18)
[2023-04-09] MEDS: BUMETANIDE 2 MG TABLET GT ×2 (08:21→20:18)
[2023-04-09] MEDS: POTASSIUM CHLORIDE 20 MEQ TAB.ER.PRT GT ×2 (08:21→20:18)
[2023-04-09] MEDS: MULTIVITAMIN 1 TAB TABLET GT (08:21)
[2023-04-09] MEDS: FERROUS SULFATE 220 MG/5 ML ELIXIR 330 MG GT (08:21)
[2023-04-09] MEDS: FAMOTIDINE 20 MG TABLET GT (08:21)
[2023-04-09] MEDS: VALPROIC ACID 250 MG/5 ML 1000 MG GT (08:23)
--- NOTE | 2023-04-09 11:20 | CHAP ---
Talked, shared scripture verse and prayed.
[2023-04-09] MEDS: CARVEDILOL 3.125 MG TABLET GT (20:18)
[2023-04-10] VITALS (11 sets, daily range): BP systolic 95–104; BP diastolic 56–68; PULSE 82–108; RESP 16–27; TEMP 35.8–36.6; O2SAT 97–100
[2023-04-10] MEDS: IPRATROPIUM/ALBUTEROL 3 ML AMPUL.NEB INH ×3 (01:40→18:23)
[2023-04-10] MEDS: LACTULOSE 10 GM/15 ML SOLUTION GT ×3 (05:30→21:35)
[2023-04-10] MEDS: LEVOTHYROXINE 50 MCG TABLET GT (05:30)
[2023-04-10] MEDS: acetaZOLAMIDE 250 MG TABLET GT ×2 (08:47→20:36)
[2023-04-10] MEDS: BUMETANIDE 2 MG TABLET GT ×2 (08:47→20:36)
[2023-04-10] MEDS: levETIRAcetam 750 MG TABLET GT ×2 (08:48→20:37)
[2023-04-10] MEDS: POTASSIUM CHLORIDE 20 MEQ TAB.ER.PRT GT ×2 (08:48→20:38)
[2023-04-10] MEDS: FAMOTIDINE 20 MG TABLET GT (08:48)
[2023-04-10] MEDS: MULTIVITAMIN 1 TAB TABLET GT (08:50)
[2023-04-10] MEDS: VALPROIC ACID 250 MG/5 ML 1000 MG GT (08:52)
[2023-04-10] MEDS: FERROUS SULFATE 220 MG/5 ML ELIXIR 330 MG GT (10:24)
[2023-04-10] MEDS: guaiFENesin Liq 100 MG/5 ML LIQUID 300 MG GT (16:59)
[2023-04-11] VITALS (11 sets, daily range): BP systolic 96–121; BP diastolic 57–84; PULSE 83–116; RESP 20–26; TEMP 36.3–36.8; O2SAT 96–99
[2023-04-11] MEDS: IPRATROPIUM/ALBUTEROL 3 ML AMPUL.NEB INH ×4 (00:11→18:12)
[2023-04-11] MEDS: LACTULOSE 10 GM/15 ML SOLUTION GT ×3 (05:05→20:15)
[2023-04-11] MEDS: LEVOTHYROXINE 50 MCG TABLET GT (05:06)
[2023-04-11] MEDS: acetaZOLAMIDE 250 MG TABLET GT ×2 (08:50→20:13)
[2023-04-11] MEDS: BUMETANIDE 2 MG TABLET GT ×2 (08:50→20:13)
[2023-04-11] MEDS: FAMOTIDINE 20 MG TABLET GT (08:51)
[2023-04-11] MEDS: FERROUS SULFATE 220 MG/5 ML ELIXIR 330 MG GT (08:52)
[2023-04-11] MEDS: levETIRAcetam 750 MG TABLET GT ×2 (08:52→20:14)
[2023-04-11] MEDS: MULTIVITAMIN 1 TAB TABLET GT (08:52)
[2023-04-11] MEDS: POTASSIUM CHLORIDE 20 MEQ TAB.ER.PRT GT ×2 (08:53→20:14)
[2023-04-11] MEDS: VALPROIC ACID 250 MG/5 ML 1000 MG GT (08:54)
[2023-04-12] VITALS (13 sets, daily range): BP systolic 89–114; BP diastolic 53–74; PULSE 83–108; RESP 20–28; TEMP 36.4–36.7; O2SAT 98–100
[2023-04-12] MEDS: IPRATROPIUM/ALBUTEROL 3 ML AMPUL.NEB INH ×4 (00:49→23:55)
[2023-04-12] MEDS: LACTULOSE 10 GM/15 ML SOLUTION GT ×3 (05:07→21:13)
[2023-04-12] MEDS: LEVOTHYROXINE 50 MCG TABLET GT (05:08)
[2023-04-12] MEDS: BUMETANIDE 2 MG TABLET GT ×2 (09:35→21:14)
[2023-04-12] MEDS: acetaZOLAMIDE 250 MG TABLET GT ×2 (09:35→21:14)
[2023-04-12] MEDS: levETIRAcetam 750 MG TABLET GT ×2 (09:37→21:15)
[2023-04-12] MEDS: FAMOTIDINE 20 MG TABLET GT (09:37)
[2023-04-12] MEDS: VALPROIC ACID 250 MG/5 ML 1000 MG GT (09:37)
[2023-04-12] MEDS: POTASSIUM CHLORIDE 20 MEQ TAB.ER.PRT GT ×2 (09:37→21:16)
[2023-04-12] MEDS: MULTIVITAMIN 1 TAB TABLET GT (09:41)
[2023-04-12] MEDS: FERROUS SULFATE 220 MG/5 ML ELIXIR 330 MG GT (09:41)
--- NOTE | 2023-04-12 11:30 | PD.SAPROG ---
Progress Note - SubAcute DIAGNOSIS (1) Chronic respiratory failure with hypoxia: Status: Chronic (2) Dependent on ventilator: Status: Chronic SUBJECTIVE Fever:: none GI:: none Shortness of Breath:: none GI:: no complaints Pain:: none OBJECTIVE Most recent vital signs: Last Vital Signs Temp 98.4 F 04/13/23 00:00 Pulse 100 04/13/23 00:00 Resp 20 04/13/23 00:00 BP 96/64 04/13/23 00:00 Pulse Ox 99 04/12/23 23:55 O2 Del Method Mechanical Ventilation 04/11/23 06:00 FiO2 30 04/12/23 23:55 Neurological:: awake Speech:: nods head and appropriate (Sometimes) Answers questions:: sometimes Respiratory:: lungs clear Cardiovascular: RRR Abdomen: soft and nontender Decubitus:: none Tracheostomy:: to ventilator Feeding per:: G tube Complaints:: none ASSESSMENT & PLAN Assessment: Patient with cognitive function delay, ventilator dependent. No distress. Stable condition. Diagnosis and treatment reviewed. Pt does not tolerate weaning from Ventilator. Plan: Current treatment continued
[2023-04-13] VITALS (12 sets, daily range): BP systolic 96–106; BP diastolic 56–70; PULSE 79–102; RESP 18–22; TEMP 36.1–36.9; O2SAT 99–100
[2023-04-13] MEDS: LACTULOSE 10 GM/15 ML SOLUTION GT ×3 (05:17→20:58)
[2023-04-13] MEDS: LEVOTHYROXINE 50 MCG TABLET GT (05:17)
[2023-04-13] MEDS: IPRATROPIUM/ALBUTEROL 3 ML AMPUL.NEB INH ×4 (07:20→23:40)
[2023-04-13] MEDS: acetaZOLAMIDE 250 MG TABLET GT ×2 (10:02→19:57)
[2023-04-13] MEDS: BUMETANIDE 2 MG TABLET GT ×2 (10:02→19:58)
[2023-04-13] MEDS: FAMOTIDINE 20 MG TABLET GT (10:04)
[2023-04-13] MEDS: FERROUS SULFATE 220 MG/5 ML ELIXIR 330 MG GT (10:04)
[2023-04-13] MEDS: MULTIVITAMIN 1 TAB TABLET GT (10:06)
[2023-04-13] MEDS: POTASSIUM CHLORIDE 20 MEQ TAB.ER.PRT GT ×2 (10:06→20:04)
[2023-04-13] MEDS: levETIRAcetam 750 MG TABLET GT ×2 (10:06→20:03)
[2023-04-13] MEDS: VALPROIC ACID 250 MG/5 ML 1000 MG GT (10:06)
[2023-04-13] MEDS: guaiFENesin Liq 100 MG/5 ML LIQUID 300 MG GT (13:13)
[2023-04-14] VITALS (10 sets, daily range): BP systolic 92–120; BP diastolic 52–70; PULSE 69–116; RESP 18–24; TEMP 36.2–36.4; O2SAT 95–100
[2023-04-14] MEDS: LEVOTHYROXINE 50 MCG TABLET GT (05:20)
[2023-04-14] MEDS: LACTULOSE 10 GM/15 ML SOLUTION GT ×3 (05:41→20:04)
[2023-04-14] MEDS: IPRATROPIUM/ALBUTEROL 3 ML AMPUL.NEB INH ×3 (07:15→19:35)
[2023-04-14] MEDS: acetaZOLAMIDE 250 MG TABLET GT ×2 (08:18→20:01)
[2023-04-14] MEDS: BUMETANIDE 2 MG TABLET GT ×2 (08:19→20:02)
[2023-04-14] MEDS: FERROUS SULFATE 220 MG/5 ML ELIXIR 330 MG GT (08:19)
[2023-04-14] MEDS: FAMOTIDINE 20 MG TABLET GT (08:19)
[2023-04-14] MEDS: levETIRAcetam 750 MG TABLET GT ×2 (08:20→20:03)
[2023-04-14] MEDS: MULTIVITAMIN 1 TAB TABLET GT (08:20)
[2023-04-14] MEDS: POTASSIUM CHLORIDE 20 MEQ TAB.ER.PRT GT ×2 (08:21→20:04)
[2023-04-14] MEDS: VALPROIC ACID 250 MG/5 ML 1000 MG GT (08:21)
[2023-04-14] MEDS: guaiFENesin Liq 100 MG/5 ML LIQUID 300 MG GT (17:52)
[2023-04-14] MEDS: ACETAMINOPHEN 325 MG TABLET 650 MG GT (19:30)
--- NOTE | 2023-04-14 19:30 | PC.RT ---
called to Bedside @1914 by RT Gupta to asess PT airway patency. PT difficult to suction. PT lavaged with no improvement. Inner cannula changed at this time.
[2023-04-15] VITALS (10 sets, daily range): BP systolic 101–110; BP diastolic 60–72; PULSE 78–114; RESP 20–30; TEMP 36.1–36.4; O2SAT 95–97
[2023-04-15] MEDS: ACETAMINOPHEN 325 MG TABLET 650 MG GT (01:00)
[2023-04-15] MEDS: IPRATROPIUM/ALBUTEROL 3 ML AMPUL.NEB INH ×4 (01:59→19:45)
[2023-04-15] MEDS: LACTULOSE 10 GM/15 ML SOLUTION GT ×3 (05:45→22:00)
[2023-04-15] MEDS: LEVOTHYROXINE 50 MCG TABLET GT (05:45)
[2023-04-15] MEDS: BUMETANIDE 2 MG TABLET GT ×2 (09:50→20:09)
[2023-04-15] MEDS: acetaZOLAMIDE 250 MG TABLET GT ×2 (09:50→20:09)
[2023-04-15] MEDS: FAMOTIDINE 20 MG TABLET GT (09:55)
[2023-04-15] MEDS: VALPROIC ACID 250 MG/5 ML 1000 MG GT (09:55)
[2023-04-15] MEDS: MULTIVITAMIN 1 TAB TABLET GT (09:55)
[2023-04-15] MEDS: FERROUS SULFATE 220 MG/5 ML ELIXIR 330 MG GT (09:55)
[2023-04-15] MEDS: levETIRAcetam 750 MG TABLET GT ×2 (09:55→21:35)
[2023-04-15] MEDS: POTASSIUM CHLORIDE 20 MEQ TAB.ER.PRT GT ×2 (09:55→21:36)
--- NOTE | 2023-04-15 10:39 | CHAP ---
Patient seemed to express gratitude for visit and prayer.
[2023-04-16] VITALS (11 sets, daily range): BP systolic 83–108; BP diastolic 58–74; PULSE 76–108; RESP 18–26; TEMP 36.2–36.9; O2SAT 96–98
[2023-04-16] MEDS: IPRATROPIUM/ALBUTEROL 3 ML AMPUL.NEB INH ×4 (01:30→20:05)
[2023-04-16] MEDS: LEVOTHYROXINE 50 MCG TABLET GT (05:36)
[2023-04-16] MEDS: LACTULOSE 10 GM/15 ML SOLUTION GT ×3 (06:00→22:00)
[2023-04-16] MEDS: BUMETANIDE 2 MG TABLET GT ×2 (09:36→20:14)
[2023-04-16] MEDS: acetaZOLAMIDE 250 MG TABLET GT ×2 (09:36→20:15)
[2023-04-16] MEDS: FAMOTIDINE 20 MG TABLET GT (09:37)
[2023-04-16] MEDS: FERROUS SULFATE 220 MG/5 ML ELIXIR 330 MG GT (09:37)
[2023-04-16] MEDS: levETIRAcetam 750 MG TABLET GT ×2 (09:39→20:16)
[2023-04-16] MEDS: POTASSIUM CHLORIDE 20 MEQ TAB.ER.PRT GT ×2 (09:39→20:17)
[2023-04-16] MEDS: MULTIVITAMIN 1 TAB TABLET GT (09:39)
[2023-04-16] MEDS: VALPROIC ACID 250 MG/5 ML 1000 MG GT (09:40)
--- NOTE | 2023-04-16 10:36 | CHAP ---
Patient was sleeping peacefully. Prayed a silent prayer by bed.
--- NOTE | 2023-04-16 14:33 | PC.SS ---
Room visit: Resident is laying in bed with head of the bed elevated with call light properly placed. Resident is well groomed with no signs of distress. Resident mood is adequate with no changes. Resident continues to receive daily room visits and will be monitored for any changes in care or condition. Plan is for resident to remain in current care as resident remains total care unable to make needs known.
--- NOTE | 2023-04-16 22:55 | PD.SAPROG ---
Progress Note - SubAcute DIAGNOSIS (1) Chronic respiratory failure with hypoxia: Status: Chronic (2) Dependent on ventilator: Status: Chronic SUBJECTIVE Fever:: none GI:: none Shortness of Breath:: none GI:: no complaints Pain:: none OBJECTIVE Most recent vital signs: Last Vital Signs Temp 97.6 F 04/16/23 17:28 Pulse 91 04/16/23 20:16 Resp 23 H 04/16/23 20:05 BP 98/65 04/16/23 20:16 Pulse Ox 98 04/16/23 20:05 O2 Del Method Mechanical Ventilation 04/11/23 06:00 FiO2 41 04/16/23 20:05 Neurological:: awake Speech:: nods head and appropriate (Sometimes) Answers questions:: sometimes Respiratory:: lungs clear Cardiovascular: RRR Abdomen: soft and nontender Decubitus:: none Tracheostomy:: to ventilator Feeding per:: G tube Complaints:: none ASSESSMENT & PLAN Assessment: Patient with cognitive function delay, ventilator dependent. No distress. Stable condition. Diagnosis and treatment reviewed. Pt does not tolerate weaning from Ventilator. Plan: Current treatment continued
[2023-04-17] VITALS (10 sets, daily range): BP systolic 109–119; BP diastolic 69–85; PULSE 76–101; RESP 20–26; TEMP 36.6–36.8; O2SAT 96–100
[2023-04-17] MEDS: IPRATROPIUM/ALBUTEROL 3 ML AMPUL.NEB INH ×4 (01:20→18:40)
[2023-04-17] MEDS: LEVOTHYROXINE 50 MCG TABLET GT (05:26)
[2023-04-17] MEDS: LACTULOSE 10 GM/15 ML SOLUTION GT ×3 (05:26→19:55)
[2023-04-17] MEDS: acetaZOLAMIDE 250 MG TABLET GT ×2 (08:33→19:52)
[2023-04-17] MEDS: BUMETANIDE 2 MG TABLET GT ×2 (08:34→19:52)
[2023-04-17] MEDS: CARVEDILOL 3.125 MG TABLET GT ×2 (08:34→19:53)
[2023-04-17] MEDS: FAMOTIDINE 20 MG TABLET GT (08:35)
[2023-04-17] MEDS: FERROUS SULFATE 220 MG/5 ML ELIXIR 330 MG GT (08:35)
[2023-04-17] MEDS: MULTIVITAMIN 1 TAB TABLET GT (08:36)
[2023-04-17] MEDS: POTASSIUM CHLORIDE 20 MEQ TAB.ER.PRT GT ×2 (08:36→19:53)
[2023-04-17] MEDS: levETIRAcetam 750 MG TABLET GT ×2 (08:36→19:53)
[2023-04-17] MEDS: VALPROIC ACID 250 MG/5 ML 1000 MG GT (08:37)
[2023-04-18] VITALS (13 sets, daily range): BP systolic 93–114; BP diastolic 53–70; PULSE 60–112; RESP 20–26; TEMP 35.9–36.6; O2SAT 94–99
[2023-04-18] MEDS: IPRATROPIUM/ALBUTEROL 3 ML AMPUL.NEB INH ×4 (00:55→18:40)
[2023-04-18] MEDS: LEVOTHYROXINE 50 MCG TABLET GT (05:08)
[2023-04-18] MEDS: LACTULOSE 10 GM/15 ML SOLUTION GT ×3 (05:08→21:15)
[2023-04-18] MEDS: acetaZOLAMIDE 250 MG TABLET GT ×2 (08:37→20:54)
[2023-04-18] MEDS: BUMETANIDE 2 MG TABLET GT ×2 (08:38→20:54)
[2023-04-18] MEDS: FAMOTIDINE 20 MG TABLET GT (08:39)
[2023-04-18] MEDS: FERROUS SULFATE 220 MG/5 ML ELIXIR 330 MG GT (08:39)
[2023-04-18] MEDS: POTASSIUM CHLORIDE 20 MEQ TAB.ER.PRT GT ×2 (08:40→20:56)
[2023-04-18] MEDS: MULTIVITAMIN 1 TAB TABLET GT (08:40)
[2023-04-18] MEDS: levETIRAcetam 750 MG TABLET GT ×2 (08:40→20:55)
[2023-04-18] MEDS: VALPROIC ACID 250 MG/5 ML 1000 MG GT (08:41)
[2023-04-18] MEDS: CARVEDILOL 3.125 MG TABLET GT (20:55)
[2023-04-18] MEDS: LOSARTAN 25 MG TABLET GT (20:55)
[2023-04-19] VITALS (13 sets, daily range): BP systolic 92–145; BP diastolic 49–75; PULSE 64–94; RESP 18–25; TEMP 36.2–36.7; O2SAT 97–100
[2023-04-19] MEDS: IPRATROPIUM/ALBUTEROL 3 ML AMPUL.NEB INH ×3 (01:20→17:48)
[2023-04-19] MEDS: LACTULOSE 10 GM/15 ML SOLUTION GT ×3 (05:28→20:02)
[2023-04-19] MEDS: LEVOTHYROXINE 50 MCG TABLET GT (05:28)
[2023-04-19] MEDS: BUMETANIDE 2 MG TABLET GT ×2 (08:02→20:01)
[2023-04-19] MEDS: acetaZOLAMIDE 250 MG TABLET GT ×2 (08:02→20:01)
[2023-04-19] MEDS: CARVEDILOL 3.125 MG TABLET GT (08:03)
[2023-04-19] MEDS: FERROUS SULFATE 220 MG/5 ML ELIXIR 330 MG GT (08:03)
[2023-04-19] MEDS: FAMOTIDINE 20 MG TABLET GT (08:03)
[2023-04-19] MEDS: VALPROIC ACID 250 MG/5 ML 1000 MG GT (08:04)
[2023-04-19] MEDS: POTASSIUM CHLORIDE 20 MEQ TAB.ER.PRT GT ×2 (08:04→20:02)
[2023-04-19] MEDS: MULTIVITAMIN 1 TAB TABLET GT (08:04)
[2023-04-19] MEDS: levETIRAcetam 750 MG TABLET GT ×2 (08:04→20:01)
[2023-04-20] VITALS (13 sets, daily range): BP systolic 99–123; BP diastolic 48–78; PULSE 66–111; RESP 18–30; TEMP 36.2–37.6; O2SAT 96–100
[2023-04-20] MEDS: IPRATROPIUM/ALBUTEROL 3 ML AMPUL.NEB INH ×5 (00:44→20:06)
[2023-04-20] MEDS: LACTULOSE 10 GM/15 ML SOLUTION GT ×2 (05:02→14:42)
[2023-04-20] MEDS: LEVOTHYROXINE 50 MCG TABLET GT (05:02)
[2023-04-20] MEDS: MULTIVITAMIN 1 TAB TABLET GT (08:35)
[2023-04-20] MEDS: POTASSIUM CHLORIDE 20 MEQ TAB.ER.PRT GT ×2 (08:35→20:19)
[2023-04-20] MEDS: FAMOTIDINE 20 MG TABLET GT (08:36)
[2023-04-20] MEDS: levETIRAcetam 750 MG TABLET GT ×2 (08:36→20:18)
[2023-04-20] MEDS: FERROUS SULFATE 220 MG/5 ML ELIXIR 330 MG GT (08:36)
[2023-04-20] MEDS: BUMETANIDE 2 MG TABLET GT ×2 (08:37→20:16)
[2023-04-20] MEDS: acetaZOLAMIDE 250 MG TABLET GT ×2 (08:38→20:15)
[2023-04-20] MEDS: VALPROIC ACID 250 MG/5 ML 1000 MG GT (08:39)
--- NOTE | 2023-04-20 22:24 | PD.SAPROG ---
Progress Note - SubAcute DIAGNOSIS (1) Chronic respiratory failure with hypoxia: Status: Chronic (2) Dependent on ventilator: Status: Chronic SUBJECTIVE Fever:: none GI:: none Shortness of Breath:: none GI:: no complaints Pain:: none OBJECTIVE Most recent vital signs: Last Vital Signs Temp 99.7 F 04/20/23 22:00 Pulse 111 H 04/20/23 22:00 Resp 24 H 04/20/23 22:00 BP 117/78 04/20/23 22:00 Pulse Ox 100 04/20/23 20:06 O2 Del Method Mechanical Ventilation 04/19/23 17:28 FiO2 45 04/20/23 20:06 Neurological:: awake Speech:: nods head and appropriate (Sometimes) Answers questions:: sometimes Respiratory:: lungs clear Cardiovascular: RRR Abdomen: soft and nontender Decubitus:: none Tracheostomy:: to ventilator Feeding per:: G tube Complaints:: none ASSESSMENT & PLAN Assessment: Patient with cognitive function delay, ventilator dependent. No distress. Stable condition. Diagnosis and treatment reviewed. Pt does not tolerate weaning from Ventilator. Plan: Current treatment continued
[2023-04-20] MEDS: ACETAMINOPHEN 325 MG TABLET 650 MG GT (22:28)
[2023-04-21] VITALS (15 sets, daily range): BP systolic 93–124; BP diastolic 63–88; PULSE 73–115; RESP 22–34; TEMP 36.7–38.1; O2SAT 96–99
[2023-04-21] MEDS: IPRATROPIUM/ALBUTEROL 3 ML AMPUL.NEB INH ×4 (00:52→19:15)
[2023-04-21] MEDS: LACTULOSE 10 GM/15 ML SOLUTION GT ×3 (05:13→21:05)
[2023-04-21] MEDS: LEVOTHYROXINE 50 MCG TABLET GT (05:13)
[2023-04-21] MEDS: ACETAMINOPHEN 325 MG TABLET 650 MG GT (05:13)
[2023-04-21] MEDS: FERROUS SULFATE 220 MG/5 ML ELIXIR 330 MG GT (08:59)
[2023-04-21] MEDS: acetaZOLAMIDE 250 MG TABLET GT ×2 (08:59→20:00)
[2023-04-21] MEDS: levETIRAcetam 750 MG TABLET GT ×2 (08:59→20:03)
[2023-04-21] MEDS: MULTIVITAMIN 1 TAB TABLET GT (08:59)
[2023-04-21] MEDS: CARVEDILOL 3.125 MG TABLET GT (08:59)
[2023-04-21] MEDS: FAMOTIDINE 20 MG TABLET GT (08:59)
[2023-04-21] MEDS: BUMETANIDE 2 MG TABLET GT ×2 (08:59→20:01)
[2023-04-21] MEDS: POTASSIUM CHLORIDE 20 MEQ TAB.ER.PRT GT ×2 (09:00→20:04)
[2023-04-21] MEDS: VALPROIC ACID 250 MG/5 ML 1000 MG GT (09:00)
--- NOTE | 2023-04-21 17:41 | PC.CWCCOMPLE ---
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
[2023-04-22] VITALS (12 sets, daily range): BP systolic 100–122; BP diastolic 61–74; PULSE 76–111; RESP 21–35; TEMP 36.3–36.9; O2SAT 96–100
[2023-04-22] MEDS: IPRATROPIUM/ALBUTEROL 3 ML AMPUL.NEB INH ×4 (00:40→19:25)
[2023-04-22] MEDS: LACTULOSE 10 GM/15 ML SOLUTION GT ×3 (04:59→21:05)
[2023-04-22] MEDS: LEVOTHYROXINE 50 MCG TABLET GT (05:01)
[2023-04-22] MEDS: POTASSIUM CHLORIDE 20 MEQ TAB.ER.PRT GT ×2 (08:09→20:21)
[2023-04-22] MEDS: MULTIVITAMIN 1 TAB TABLET GT (08:10)
[2023-04-22] MEDS: levETIRAcetam 750 MG TABLET GT ×2 (08:10→20:20)
[2023-04-22] MEDS: FERROUS SULFATE 220 MG/5 ML ELIXIR 330 MG GT (08:11)
[2023-04-22] MEDS: BUMETANIDE 2 MG TABLET GT ×2 (08:12→20:19)
[2023-04-22] MEDS: FAMOTIDINE 20 MG TABLET GT (08:12)
[2023-04-22] MEDS: acetaZOLAMIDE 250 MG TABLET GT ×2 (08:12→20:19)
[2023-04-22] MEDS: CARVEDILOL 3.125 MG TABLET GT (08:12)
[2023-04-22] MEDS: VALPROIC ACID 250 MG/5 ML 1000 MG GT (08:13)
[2023-04-22] MEDS: LOSARTAN 25 MG TABLET GT (20:20)
[2023-04-23] VITALS (13 sets, daily range): BP systolic 94–115; BP diastolic 55–72; PULSE 64–92; RESP 15–26; TEMP 36.1–36.6; O2SAT 97–100
[2023-04-23] MEDS: IPRATROPIUM/ALBUTEROL 3 ML AMPUL.NEB INH ×4 (00:50→18:39)
[2023-04-23] MEDS: LACTULOSE 10 GM/15 ML SOLUTION GT ×3 (05:20→23:15)
[2023-04-23] MEDS: LEVOTHYROXINE 50 MCG TABLET GT (05:21)
[2023-04-23] MEDS: BUMETANIDE 2 MG TABLET GT ×2 (09:42→20:40)
[2023-04-23] MEDS: acetaZOLAMIDE 250 MG TABLET GT ×2 (09:42→20:40)
[2023-04-23] MEDS: MULTIVITAMIN 1 TAB TABLET GT (09:43)
[2023-04-23] MEDS: POTASSIUM CHLORIDE 20 MEQ TAB.ER.PRT GT ×2 (09:43→20:41)
[2023-04-23] MEDS: levETIRAcetam 750 MG TABLET GT ×2 (09:43→20:41)
[2023-04-23] MEDS: FERROUS SULFATE 220 MG/5 ML ELIXIR 330 MG GT (09:43)
[2023-04-23] MEDS: FAMOTIDINE 20 MG TABLET GT (09:43)
[2023-04-23] MEDS: VALPROIC ACID 250 MG/5 ML 1000 MG GT (09:45)
--- NOTE | 2023-04-23 10:32 | CHAP ---
Patient was partially sleeping. Prayed quiet prayer by bedside.
--- NOTE | 2023-04-23 15:00 | PC.SS ---
Room change: Resident moved from room 117B to room 119B, resident RP/Father notified of room change. This SSD will continue to follow up with resident monitoring his mood s and behavior related to room change.
--- NOTE | 2023-04-23 15:02 | PC.SS ---
Room visit: Resident is laying in bed with head of the bed elevated with call light properly placed. Resident is not showing any changes in mood or behavior. Resident will remain in current care as there are no changes in care or condition, resident will continue to be evaluated as appropriate for DC to lower level of care. This SSD will continue to make daily contact and offer support as needed.
[2023-04-24] VITALS (9 sets, daily range): BP systolic 90–128; BP diastolic 69–83; PULSE 68–106; RESP 18–25; TEMP 36.2–36.8; O2SAT 96–100
[2023-04-24] MEDS: IPRATROPIUM/ALBUTEROL 3 ML AMPUL.NEB INH ×4 (01:02→20:05)
[2023-04-24] MEDS: LACTULOSE 10 GM/15 ML SOLUTION GT ×3 (05:20→22:23)
[2023-04-24] MEDS: LEVOTHYROXINE 50 MCG TABLET GT (05:23)
[2023-04-24] MEDS: FERROUS SULFATE 220 MG/5 ML ELIXIR 330 MG GT (08:09)
[2023-04-24] MEDS: CARVEDILOL 3.125 MG TABLET GT ×2 (08:09→20:44)
[2023-04-24] MEDS: FAMOTIDINE 20 MG TABLET GT (08:09)
[2023-04-24] MEDS: acetaZOLAMIDE 250 MG TABLET GT ×2 (08:09→20:43)
[2023-04-24] MEDS: BUMETANIDE 2 MG TABLET GT ×2 (08:09→20:44)
[2023-04-24] MEDS: levETIRAcetam 750 MG TABLET GT ×2 (08:10→20:45)
[2023-04-24] MEDS: MULTIVITAMIN 1 TAB TABLET GT (08:10)
[2023-04-24] MEDS: POTASSIUM CHLORIDE 20 MEQ TAB.ER.PRT GT ×2 (08:10→20:46)
[2023-04-24] MEDS: VALPROIC ACID 250 MG/5 ML 1000 MG GT (08:12)
[2023-04-24] MEDS: LOSARTAN 25 MG TABLET GT (20:45)
--- NOTE | 2023-04-24 22:58 | PD.SAPROG ---
Progress Note - SubAcute SUBJECTIVE Fever:: none GI:: none Shortness of Breath:: none GI:: no complaints Pain:: none OBJECTIVE Most recent vital signs: Last Vital Signs Temp 97.4 F 04/26/23 22:00 Pulse 79 04/26/23 22:00 Resp 20 04/26/23 22:00 BP 97/67 04/26/23 22:00 Pulse Ox 99 04/26/23 18:45 O2 Del Method Mechanical Ventilation 04/26/23 18:00 FiO2 32 04/26/23 18:45 Neurological:: awake Speech:: nods head and appropriate (Sometimes) Answers questions:: sometimes Respiratory:: lungs clear Cardiovascular: RRR Abdomen: soft and nontender Decubitus:: none Tracheostomy:: to ventilator Feeding per:: G tube Complaints:: none ASSESSMENT & PLAN Assessment: Patient with cognitive function delay, ventilator dependent. No distress. Stable condition. Diagnosis and treatment reviewed. Pt does not tolerate weaning from Ventilator. Plan: Current treatment continued
[2023-04-25] VITALS (15 sets, daily range): BP systolic 86–115; BP diastolic 51–76; PULSE 64–85; RESP 17–27; TEMP 36–36.4; O2SAT 98–100
[2023-04-25] MEDS: IPRATROPIUM/ALBUTEROL 3 ML AMPUL.NEB INH ×4 (00:30→19:13)
[2023-04-25] MEDS: LEVOTHYROXINE 50 MCG TABLET GT (05:06)
[2023-04-25] MEDS: BUMETANIDE 2 MG TABLET GT ×2 (08:04→20:39)
[2023-04-25] MEDS: acetaZOLAMIDE 250 MG TABLET GT ×2 (08:04→20:36)
[2023-04-25] MEDS: CARVEDILOL 3.125 MG TABLET GT (08:05)
[2023-04-25] MEDS: FAMOTIDINE 20 MG TABLET GT (08:06)
[2023-04-25] MEDS: FERROUS SULFATE 220 MG/5 ML ELIXIR 330 MG GT (08:09)
[2023-04-25] MEDS: levETIRAcetam 750 MG TABLET GT ×2 (08:10→20:53)
[2023-04-25] MEDS: POTASSIUM CHLORIDE 20 MEQ TAB.ER.PRT GT ×2 (08:11→20:35)
[2023-04-25] MEDS: MULTIVITAMIN 1 TAB TABLET GT (08:11)
[2023-04-25] MEDS: VALPROIC ACID 250 MG/5 ML 1000 MG GT (08:12)
[2023-04-25] MEDS: LACTULOSE 10 GM/15 ML SOLUTION GT ×2 (14:45→22:09)
[2023-04-26] VITALS (14 sets, daily range): BP systolic 95–109; BP diastolic 62–73; PULSE 66–104; RESP 20–24; TEMP 36.1–36.3; O2SAT 94–100
[2023-04-26] MEDS: LACTULOSE 10 GM/15 ML SOLUTION GT ×3 (05:18→21:04)
[2023-04-26] MEDS: LEVOTHYROXINE 50 MCG TABLET GT (05:18)
[2023-04-26] MEDS: IPRATROPIUM/ALBUTEROL 3 ML AMPUL.NEB INH ×4 (06:00→18:45)
[2023-04-26] MEDS: acetaZOLAMIDE 250 MG TABLET GT ×2 (08:42→21:00)
[2023-04-26] MEDS: BUMETANIDE 2 MG TABLET GT ×2 (08:42→21:01)
[2023-04-26] MEDS: FAMOTIDINE 20 MG TABLET GT (08:43)
[2023-04-26] MEDS: MULTIVITAMIN 1 TAB TABLET GT (08:44)
[2023-04-26] MEDS: levETIRAcetam 750 MG TABLET GT ×2 (08:44→21:03)
[2023-04-26] MEDS: FERROUS SULFATE 220 MG/5 ML ELIXIR 330 MG GT (08:44)
[2023-04-26] MEDS: VALPROIC ACID 250 MG/5 ML 1000 MG GT (08:45)
[2023-04-26] MEDS: POTASSIUM CHLORIDE 20 MEQ TAB.ER.PRT GT ×2 (08:45→21:04)
[2023-04-27] VITALS (12 sets, daily range): BP systolic 98–112; BP diastolic 63–73; PULSE 76–101; RESP 20–24; TEMP 35.9–36.4; O2SAT 97–100
[2023-04-27] MEDS: IPRATROPIUM/ALBUTEROL 3 ML AMPUL.NEB INH ×4 (00:05→18:30)
[2023-04-27] MEDS: LACTULOSE 10 GM/15 ML SOLUTION GT ×3 (06:02→21:09)
[2023-04-27] MEDS: LEVOTHYROXINE 50 MCG TABLET GT (06:02)
[2023-04-27] MEDS: acetaZOLAMIDE 250 MG TABLET GT ×2 (08:34→21:01)
[2023-04-27] MEDS: BUMETANIDE 2 MG TABLET GT ×2 (08:34→21:02)
[2023-04-27] MEDS: FAMOTIDINE 20 MG TABLET GT (08:35)
[2023-04-27] MEDS: levETIRAcetam 750 MG TABLET GT ×2 (08:35→21:03)
[2023-04-27] MEDS: FERROUS SULFATE 220 MG/5 ML ELIXIR 330 MG GT (08:35)
[2023-04-27] MEDS: MULTIVITAMIN 1 TAB TABLET GT (08:36)
[2023-04-27] MEDS: POTASSIUM CHLORIDE 20 MEQ TAB.ER.PRT GT ×2 (08:36→21:09)
[2023-04-27] MEDS: VALPROIC ACID 250 MG/5 ML 1000 MG GT (08:38)
[2023-04-28] VITALS (13 sets, daily range): BP systolic 102–128; BP diastolic 65–82; PULSE 71–108; RESP 17–25; TEMP 36.1–36.4; O2SAT 97–99
[2023-04-28] MEDS: IPRATROPIUM/ALBUTEROL 3 ML AMPUL.NEB INH ×4 (00:25→19:20)
[2023-04-28] MEDS: LACTULOSE 10 GM/15 ML SOLUTION GT ×3 (05:30→21:13)
[2023-04-28] MEDS: LEVOTHYROXINE 50 MCG TABLET GT (05:31)
[2023-04-28] MEDS: acetaZOLAMIDE 250 MG TABLET GT ×2 (09:05→21:10)
[2023-04-28] MEDS: BUMETANIDE 2 MG TABLET GT ×2 (09:07→21:10)
[2023-04-28] MEDS: FAMOTIDINE 20 MG TABLET GT (09:08)
[2023-04-28] MEDS: FERROUS SULFATE 220 MG/5 ML ELIXIR 330 MG GT (09:09)
[2023-04-28] MEDS: levETIRAcetam 750 MG TABLET GT ×2 (09:10→21:12)
[2023-04-28] MEDS: POTASSIUM CHLORIDE 20 MEQ TAB.ER.PRT GT ×2 (09:10→21:13)
[2023-04-28] MEDS: MULTIVITAMIN 1 TAB TABLET GT (09:10)
[2023-04-28] MEDS: VALPROIC ACID 250 MG/5 ML 1000 MG GT (09:11)
[2023-04-28 09:40] LABS: Thyroid Stimulating Hormone 1.57 uIU/mL (0.55-4.78)
[2023-04-29] VITALS (11 sets, daily range): BP systolic 110–132; BP diastolic 72–84; PULSE 76–98; RESP 20–26; TEMP 36.4; O2SAT 97–100
[2023-04-29] MEDS: IPRATROPIUM/ALBUTEROL 3 ML AMPUL.NEB INH ×4 (00:10→18:40)
[2023-04-29] MEDS: LACTULOSE 10 GM/15 ML SOLUTION GT ×3 (05:07→21:22)
[2023-04-29] MEDS: LEVOTHYROXINE 50 MCG TABLET GT (05:08)
[2023-04-29] MEDS: BUMETANIDE 2 MG TABLET GT ×2 (08:45→21:20)
[2023-04-29] MEDS: acetaZOLAMIDE 250 MG TABLET GT ×2 (08:45→21:18)
[2023-04-29] MEDS: levETIRAcetam 750 MG TABLET GT ×2 (08:46→21:21)
[2023-04-29] MEDS: CARVEDILOL 3.125 MG TABLET GT ×2 (08:46→21:21)
[2023-04-29] MEDS: FAMOTIDINE 20 MG TABLET GT (08:46)
[2023-04-29] MEDS: MULTIVITAMIN 1 TAB TABLET GT (08:47)
[2023-04-29] MEDS: FERROUS SULFATE 220 MG/5 ML ELIXIR 330 MG GT (08:47)
[2023-04-29] MEDS: VALPROIC ACID 250 MG/5 ML 1000 MG GT (08:48)
[2023-04-29] MEDS: POTASSIUM CHLORIDE 20 MEQ TAB.ER.PRT GT ×2 (08:48→21:21)
[2023-04-29] MEDS: ACETAMINOPHEN 325 MG TABLET 650 MG GT (08:49)
[2023-04-30] VITALS (9 sets, daily range): BP systolic 102–125; BP diastolic 60–83; PULSE 80–114; RESP 20–24; TEMP 35.9–36.3; O2SAT 96–99
[2023-04-30] MEDS: IPRATROPIUM/ALBUTEROL 3 ML AMPUL.NEB INH ×4 (01:00→19:40)
[2023-04-30] MEDS: LEVOTHYROXINE 50 MCG TABLET GT (05:04)
[2023-04-30] MEDS: LACTULOSE 10 GM/15 ML SOLUTION GT ×3 (05:04→20:51)
[2023-04-30] MEDS: acetaZOLAMIDE 250 MG TABLET GT ×2 (09:18→20:49)
[2023-04-30] MEDS: BUMETANIDE 2 MG TABLET GT ×2 (09:18→20:49)
[2023-04-30] MEDS: FAMOTIDINE 20 MG TABLET GT (09:19)
[2023-04-30] MEDS: FERROUS SULFATE 220 MG/5 ML ELIXIR 330 MG GT (09:19)
[2023-04-30] MEDS: MULTIVITAMIN 1 TAB TABLET GT (09:21)
[2023-04-30] MEDS: levETIRAcetam 750 MG TABLET GT ×2 (09:21→20:50)
[2023-04-30] MEDS: POTASSIUM CHLORIDE 20 MEQ TAB.ER.PRT GT ×2 (09:21→20:51)
[2023-04-30] MEDS: VALPROIC ACID 250 MG/5 ML 1000 MG GT (09:22)
--- NOTE | 2023-04-30 11:27 | CHAP ---
Patient was partially sleeping, but seemed to appreciate the visit and prayer.
--- NOTE | 2023-04-30 14:36 | PC.SS ---
Resident is laying in bed with head of the bed elevated with call light properly placed. Resident is well groomed showing no signs of distress. Resident will remain in current care as there are no changes in care or condition. Resident will continue to receive daily room visits to monitor moods and behavior.
[2023-04-30] MEDS: FLU VACC QS 2023-24 (6 MOS UP) 60 MCG/0.5 ML VIAL IMi (15:43)
[2023-04-30] MEDS: LOSARTAN 25 MG TABLET GT (20:50)
[2023-04-30] MEDS: CARVEDILOL 3.125 MG TABLET GT (20:50)
[2023-05-01] VITALS (11 sets, daily range): BP systolic 86–103; BP diastolic 52–68; PULSE 81–114; RESP 20–25; TEMP 36–36.6; O2SAT 95–99
[2023-05-01] MEDS: IPRATROPIUM/ALBUTEROL 3 ML AMPUL.NEB INH ×4 (00:10→19:50)
[2023-05-01] MEDS: LACTULOSE 10 GM/15 ML SOLUTION GT ×3 (05:17→21:28)
[2023-05-01] MEDS: LEVOTHYROXINE 50 MCG TABLET GT (05:18)
[2023-05-01] MEDS: acetaZOLAMIDE 250 MG TABLET GT ×2 (08:30→20:36)
[2023-05-01] MEDS: BUMETANIDE 2 MG TABLET GT ×2 (08:30→20:36)
[2023-05-01] MEDS: FERROUS SULFATE 220 MG/5 ML ELIXIR 330 MG GT (08:32)
[2023-05-01] MEDS: FAMOTIDINE 20 MG TABLET GT (08:32)
[2023-05-01] MEDS: levETIRAcetam 750 MG TABLET GT ×2 (08:32→20:37)
[2023-05-01] MEDS: MULTIVITAMIN 1 TAB TABLET GT (08:32)
[2023-05-01] MEDS: POTASSIUM CHLORIDE 20 MEQ TAB.ER.PRT GT ×2 (08:32→20:37)
[2023-05-01] MEDS: VALPROIC ACID 250 MG/5 ML 1000 MG GT (08:35)
--- NOTE | 2023-05-01 20:42 | PD.SAPROG ---
Progress Note - SubAcute SUBJECTIVE Fever:: none GI:: none Shortness of Breath:: none GI:: no complaints Pain:: none OBJECTIVE Most recent vital signs: Last Vital Signs Temp 96.8 F 05/01/23 18:00 Pulse 94 05/01/23 18:00 Resp 21 H 05/01/23 18:00 BP 101/68 05/01/23 18:00 Pulse Ox 95 05/01/23 18:00 O2 Del Method Mechanical Ventilation 04/29/23 05:40 FiO2 32 05/01/23 12:00 Neurological:: awake Speech:: nods head and appropriate (Sometimes) Answers questions:: sometimes Respiratory:: lungs clear Cardiovascular: RRR Abdomen: soft and nontender Decubitus:: none Tracheostomy:: to ventilator Feeding per:: G tube Complaints:: none ASSESSMENT & PLAN Assessment: Patient with cognitive function delay, ventilator dependent. No distress. Stable condition. Diagnosis and treatment reviewed. Pt does not tolerate weaning from Ventilator. Plan: Current treatment continued
[2023-05-02] VITALS (12 sets, daily range): BP systolic 90–117; BP diastolic 57–81; PULSE 78–105; RESP 19–26; TEMP 36–36.3; O2SAT 97–100
[2023-05-02] MEDS: IPRATROPIUM/ALBUTEROL 3 ML AMPUL.NEB INH ×5 (00:20→18:55)
[2023-05-02] MEDS: LEVOTHYROXINE 50 MCG TABLET GT (05:12)
[2023-05-02] MEDS: LACTULOSE 10 GM/15 ML SOLUTION GT ×3 (05:12→21:11)
[2023-05-02] MEDS: acetaZOLAMIDE 250 MG TABLET GT ×2 (08:28→21:09)
[2023-05-02] MEDS: BUMETANIDE 2 MG TABLET GT ×2 (08:28→21:09)
[2023-05-02] MEDS: FERROUS SULFATE 220 MG/5 ML ELIXIR 330 MG GT (08:29)
[2023-05-02] MEDS: FAMOTIDINE 20 MG TABLET GT (08:29)
[2023-05-02] MEDS: MULTIVITAMIN 1 TAB TABLET GT (08:30)
[2023-05-02] MEDS: POTASSIUM CHLORIDE 20 MEQ TAB.ER.PRT GT ×2 (08:30→21:10)
[2023-05-02] MEDS: levETIRAcetam 750 MG TABLET GT ×2 (08:30→21:08)
[2023-05-02] MEDS: VALPROIC ACID 250 MG/5 ML 1000 MG GT (08:31)
[2023-05-02] MEDS: MAGNESIUM HYDROXIDE 30 ML ORAL SUSP ML GT (08:32)
[2023-05-02] MEDS: CARVEDILOL 3.125 MG TABLET GT (21:09)
[2023-05-02] MEDS: LOSARTAN 25 MG TABLET GT (21:10)
[2023-05-03] VITALS (10 sets, daily range): BP systolic 88–112; BP diastolic 55–70; PULSE 66–110; RESP 20–36; TEMP 36–36.4; O2SAT 95–100
[2023-05-03] MEDS: IPRATROPIUM/ALBUTEROL 3 ML AMPUL.NEB INH ×4 (00:48→18:57)
[2023-05-03] MEDS: LACTULOSE 10 GM/15 ML SOLUTION GT ×3 (05:26→21:23)
[2023-05-03] MEDS: LEVOTHYROXINE 50 MCG TABLET GT (05:27)
[2023-05-03] MEDS: acetaZOLAMIDE 250 MG TABLET GT ×2 (09:04→21:22)
[2023-05-03] MEDS: FAMOTIDINE 20 MG TABLET GT (09:05)
[2023-05-03] MEDS: BUMETANIDE 2 MG TABLET GT ×2 (09:05→21:22)
[2023-05-03] MEDS: CARVEDILOL 3.125 MG TABLET GT ×2 (09:05→21:22)
[2023-05-03] MEDS: FERROUS SULFATE 220 MG/5 ML ELIXIR 330 MG GT (09:06)
[2023-05-03] MEDS: levETIRAcetam 750 MG TABLET GT ×2 (09:06→21:23)
[2023-05-03] MEDS: MULTIVITAMIN 1 TAB TABLET GT (09:06)
[2023-05-03] MEDS: POTASSIUM CHLORIDE 20 MEQ TAB.ER.PRT GT ×2 (09:06→21:23)
[2023-05-03] MEDS: VALPROIC ACID 250 MG/5 ML 1000 MG GT (09:07)
[2023-05-04] VITALS (12 sets, daily range): BP systolic 101–112; BP diastolic 50–72; PULSE 23–101; RESP 17–36; TEMP 36.1–36.2; O2SAT 96–100
[2023-05-04] MEDS: IPRATROPIUM/ALBUTEROL 3 ML AMPUL.NEB INH ×4 (00:13→19:15)
[2023-05-04] MEDS: LACTULOSE 10 GM/15 ML SOLUTION GT ×3 (05:23→21:04)
[2023-05-04] MEDS: LEVOTHYROXINE 50 MCG TABLET GT (05:23)
[2023-05-04] MEDS: acetaZOLAMIDE 250 MG TABLET GT ×2 (09:02→21:04)
[2023-05-04] MEDS: BUMETANIDE 2 MG TABLET GT ×2 (09:02→21:05)
[2023-05-04] MEDS: FERROUS SULFATE 220 MG/5 ML ELIXIR 330 MG GT (09:03)
[2023-05-04] MEDS: FAMOTIDINE 20 MG TABLET GT (09:03)
[2023-05-04] MEDS: levETIRAcetam 750 MG TABLET GT ×2 (09:03→21:05)
[2023-05-04] MEDS: POTASSIUM CHLORIDE 20 MEQ TAB.ER.PRT GT ×2 (09:03→21:07)
[2023-05-04] MEDS: MULTIVITAMIN 1 TAB TABLET GT (09:03)
[2023-05-04] MEDS: VALPROIC ACID 250 MG/5 ML 1000 MG GT (09:04)
[2023-05-05] VITALS (12 sets, daily range): BP systolic 91–110; BP diastolic 64–72; PULSE 79–111; RESP 20–22; TEMP 36.1–36.3; O2SAT 98–100
[2023-05-05] MEDS: IPRATROPIUM/ALBUTEROL 3 ML AMPUL.NEB INH ×4 (01:05→18:45)
[2023-05-05] MEDS: LACTULOSE 10 GM/15 ML SOLUTION GT ×3 (05:29→21:24)
[2023-05-05] MEDS: LEVOTHYROXINE 50 MCG TABLET GT (05:29)
[2023-05-05] MEDS: BUMETANIDE 2 MG TABLET GT ×2 (08:53→20:16)
[2023-05-05] MEDS: FAMOTIDINE 20 MG TABLET GT (08:54)
[2023-05-05] MEDS: levETIRAcetam 750 MG TABLET GT ×2 (08:54→20:17)
[2023-05-05] MEDS: acetaZOLAMIDE 250 MG TABLET GT ×2 (08:54→20:16)
[2023-05-05] MEDS: FERROUS SULFATE 220 MG/5 ML ELIXIR 330 MG GT (08:54)
[2023-05-05] MEDS: MULTIVITAMIN 1 TAB TABLET GT (08:55)
[2023-05-05] MEDS: POTASSIUM CHLORIDE 20 MEQ TAB.ER.PRT GT ×2 (08:55→20:17)
[2023-05-05] MEDS: VALPROIC ACID 250 MG/5 ML 1000 MG GT (08:55)
[2023-05-05] MEDS: CARVEDILOL 3.125 MG TABLET GT (20:17)
--- NOTE | 2023-05-05 22:37 | PD.SAPROG ---
Progress Note - SubAcute SUBJECTIVE Fever:: none GI:: none Shortness of Breath:: none GI:: no complaints Pain:: none OBJECTIVE Most recent vital signs: Last Vital Signs Temp 97.1 F 05/05/23 18:00 Pulse 90 05/05/23 20:17 Resp 20 05/05/23 18:45 BP 110/64 05/05/23 20:17 Pulse Ox 100 05/05/23 18:45 O2 Del Method Mechanical Ventilation 05/05/23 05:37 FiO2 32 05/05/23 22:00 Neurological:: awake Speech:: nods head and appropriate (Sometimes) Answers questions:: sometimes Respiratory:: lungs clear Cardiovascular: RRR Abdomen: soft and nontender Decubitus:: none Tracheostomy:: to ventilator Feeding per:: G tube Complaints:: none ASSESSMENT & PLAN Assessment: Patient with cognitive function delay, ventilator dependent. No distress. Stable condition. Diagnosis and treatment reviewed. Pt does not tolerate weaning from Ventilator. Plan: Current treatment continued
[2023-05-06] VITALS (12 sets, daily range): BP systolic 91–109; BP diastolic 58–69; PULSE 65–123; RESP 20–24; TEMP 36–36.4; O2SAT 95–99
[2023-05-06] MEDS: IPRATROPIUM/ALBUTEROL 3 ML AMPUL.NEB INH ×4 (01:45→18:15)
[2023-05-06] MEDS: LEVOTHYROXINE 50 MCG TABLET GT (05:26)
[2023-05-06] MEDS: LACTULOSE 10 GM/15 ML SOLUTION GT ×3 (05:26→21:46)
[2023-05-06] MEDS: BUMETANIDE 2 MG TABLET GT ×2 (08:43→20:20)
[2023-05-06] MEDS: acetaZOLAMIDE 250 MG TABLET GT ×2 (08:43→20:25)
[2023-05-06] MEDS: POTASSIUM CHLORIDE 20 MEQ TAB.ER.PRT GT ×2 (08:49→20:22)
[2023-05-06] MEDS: FERROUS SULFATE 220 MG/5 ML ELIXIR 330 MG GT (08:49)
[2023-05-06] MEDS: levETIRAcetam 750 MG TABLET GT ×2 (08:49→20:22)
[2023-05-06] MEDS: FAMOTIDINE 20 MG TABLET GT (08:49)
[2023-05-06] MEDS: MULTIVITAMIN 1 TAB TABLET GT (08:49)
[2023-05-06] MEDS: VALPROIC ACID 250 MG/5 ML 1000 MG GT (08:50)
[2023-05-06] MEDS: ACETAMINOPHEN 325 MG TABLET 650 MG GT (08:53)
--- NOTE | 2023-05-06 13:48 | CHAP ---
11:00 AM Visited by spiritual care volunteer Provided prayer for Patient.
[2023-05-07] VITALS (13 sets, daily range): BP systolic 96–126; BP diastolic 58–77; PULSE 60–109; RESP 15–27; TEMP 36.1–36.2; O2SAT 97–100
[2023-05-07] MEDS: IPRATROPIUM/ALBUTEROL 3 ML AMPUL.NEB INH ×4 (01:18→17:16)
[2023-05-07] MEDS: LEVOTHYROXINE 50 MCG TABLET GT (06:26)
[2023-05-07] MEDS: LACTULOSE 10 GM/15 ML SOLUTION GT ×3 (06:26→21:34)
[2023-05-07] MEDS: acetaZOLAMIDE 250 MG TABLET GT ×2 (09:37→21:31)
[2023-05-07] MEDS: BUMETANIDE 2 MG TABLET GT ×2 (09:37→21:31)
[2023-05-07] MEDS: FERROUS SULFATE 220 MG/5 ML ELIXIR 330 MG GT (09:38)
[2023-05-07] MEDS: FAMOTIDINE 20 MG TABLET GT (09:38)
[2023-05-07] MEDS: POTASSIUM CHLORIDE 20 MEQ TAB.ER.PRT GT ×2 (09:41→21:34)
[2023-05-07] MEDS: MULTIVITAMIN 1 TAB TABLET GT (09:41)
[2023-05-07] MEDS: levETIRAcetam 750 MG TABLET GT ×2 (09:41→21:34)
[2023-05-07] MEDS: ACETAMINOPHEN 325 MG TABLET 650 MG GT (09:42)
[2023-05-07] MEDS: VALPROIC ACID 250 MG/5 ML 1000 MG GT (09:42)
[2023-05-08] VITALS (13 sets, daily range): BP systolic 92–102; BP diastolic 50–71; PULSE 88–111; RESP 18–26; TEMP 36–36.6; O2SAT 99–100
[2023-05-08] MEDS: LEVOTHYROXINE 50 MCG TABLET GT (05:02)
[2023-05-08] MEDS: LACTULOSE 10 GM/15 ML SOLUTION GT ×3 (05:02→21:03)
[2023-05-08] MEDS: IPRATROPIUM/ALBUTEROL 3 ML AMPUL.NEB INH ×3 (06:20→19:10)
[2023-05-08] MEDS: BUMETANIDE 2 MG TABLET GT ×2 (08:44→20:45)
[2023-05-08] MEDS: acetaZOLAMIDE 250 MG TABLET GT ×2 (08:44→20:44)
[2023-05-08] MEDS: levETIRAcetam 750 MG TABLET GT ×2 (08:45→20:46)
[2023-05-08] MEDS: FAMOTIDINE 20 MG TABLET GT (08:45)
[2023-05-08] MEDS: FERROUS SULFATE 220 MG/5 ML ELIXIR 330 MG GT (08:46)
[2023-05-08] MEDS: MULTIVITAMIN 1 TAB TABLET GT (08:46)
[2023-05-08] MEDS: VALPROIC ACID 250 MG/5 ML 1000 MG GT (08:46)
[2023-05-08] MEDS: POTASSIUM CHLORIDE 20 MEQ TAB.ER.PRT GT ×2 (08:46→20:47)
[2023-05-09] VITALS (10 sets, daily range): BP systolic 90–114; BP diastolic 58–94; PULSE 83–107; RESP 18–23; TEMP 35.7–36.1; O2SAT 96–100
[2023-05-09] MEDS: IPRATROPIUM/ALBUTEROL 3 ML AMPUL.NEB INH ×4 (00:30→18:48)
[2023-05-09] MEDS: LACTULOSE 10 GM/15 ML SOLUTION GT ×3 (05:13→20:59)
[2023-05-09] MEDS: LEVOTHYROXINE 50 MCG TABLET GT (05:13)
[2023-05-09] MEDS: acetaZOLAMIDE 250 MG TABLET GT ×2 (08:47→20:50)
[2023-05-09] MEDS: BUMETANIDE 2 MG TABLET GT ×2 (08:48→20:51)
[2023-05-09] MEDS: FERROUS SULFATE 220 MG/5 ML ELIXIR 330 MG GT (08:49)
[2023-05-09] MEDS: FAMOTIDINE 20 MG TABLET GT (08:49)
[2023-05-09] MEDS: MULTIVITAMIN 1 TAB TABLET GT (08:50)
[2023-05-09] MEDS: levETIRAcetam 750 MG TABLET GT ×2 (08:50→20:51)
[2023-05-09] MEDS: POTASSIUM CHLORIDE 20 MEQ TAB.ER.PRT GT ×2 (08:50→20:51)
[2023-05-09] MEDS: VALPROIC ACID 250 MG/5 ML 1000 MG GT (08:51)
--- NOTE | 2023-05-09 17:17 | PD.SAPROG ---
Progress Note - SubAcute SUBJECTIVE Fever:: none GI:: none Shortness of Breath:: none GI:: no complaints Pain:: none OBJECTIVE Most recent vital signs: Last Vital Signs Temp 96.2 F L 05/09/23 12:00 Pulse 89 05/09/23 12:45 Resp 20 05/09/23 12:45 BP 101/70 05/09/23 12:00 Pulse Ox 99 05/09/23 12:45 O2 Del Method Mechanical Ventilation 05/09/23 05:27 FiO2 32 05/09/23 12:45 Neurological:: awake Speech:: nods head and appropriate (Sometimes) Answers questions:: sometimes Respiratory:: lungs clear Cardiovascular: RRR Abdomen: soft and nontender Decubitus:: none Tracheostomy:: to ventilator Feeding per:: G tube Complaints:: none ASSESSMENT & PLAN Assessment: Patient with cognitive function delay, ventilator dependent. No distress. Stable condition. Diagnosis and treatment reviewed. Pt does not tolerate weaning from Ventilator. Plan: Current treatment continued
[2023-05-09] MEDS: CARVEDILOL 3.125 MG TABLET GT (20:51)
[2023-05-10] VITALS (13 sets, daily range): BP systolic 94–113; BP diastolic 61–69; PULSE 78–98; RESP 20–28; TEMP 36.1–36.4; O2SAT 97–100
[2023-05-10] MEDS: IPRATROPIUM/ALBUTEROL 3 ML AMPUL.NEB INH ×4 (02:05→18:25)
[2023-05-10] MEDS: LACTULOSE 10 GM/15 ML SOLUTION GT ×3 (05:38→21:56)
[2023-05-10] MEDS: LEVOTHYROXINE 50 MCG TABLET GT (05:38)
[2023-05-10] MEDS: MAGNESIUM HYDROXIDE 30 ML ORAL SUSP ML GT (09:30)
[2023-05-10] MEDS: BUMETANIDE 2 MG TABLET GT ×2 (09:53→21:05)
[2023-05-10] MEDS: acetaZOLAMIDE 250 MG TABLET GT ×2 (09:53→21:04)
[2023-05-10] MEDS: POTASSIUM CHLORIDE 20 MEQ TAB.ER.PRT GT ×2 (09:54→21:06)
[2023-05-10] MEDS: CARVEDILOL 3.125 MG TABLET GT ×2 (09:54→21:05)
[2023-05-10] MEDS: VALPROIC ACID 250 MG/5 ML 1000 MG GT (09:54)
[2023-05-10] MEDS: FERROUS SULFATE 220 MG/5 ML ELIXIR 330 MG GT (09:54)
[2023-05-10] MEDS: MULTIVITAMIN 1 TAB TABLET GT (09:54)
[2023-05-10] MEDS: FAMOTIDINE 20 MG TABLET GT (09:54)
[2023-05-10] MEDS: levETIRAcetam 750 MG TABLET GT ×2 (09:54→21:06)
[2023-05-10] MEDS: LOSARTAN 25 MG TABLET GT (21:06)
[2023-05-10] MEDS: bisacodyL 10 MG SUPP.RECT PR (23:06)
[2023-05-11] VITALS (12 sets, daily range): BP systolic 96–106; BP diastolic 62–71; PULSE 73–94; RESP 18–27; TEMP 36.1–36.4; O2SAT 98–100
[2023-05-11] MEDS: IPRATROPIUM/ALBUTEROL 3 ML AMPUL.NEB INH ×4 (00:20→18:50)
[2023-05-11] MEDS: LACTULOSE 10 GM/15 ML SOLUTION GT ×2 (05:43→13:18)
[2023-05-11] MEDS: LEVOTHYROXINE 50 MCG TABLET GT (05:44)
[2023-05-11] MEDS: acetaZOLAMIDE 250 MG TABLET GT ×2 (08:43→22:43)
[2023-05-11] MEDS: FAMOTIDINE 20 MG TABLET GT (08:44)
[2023-05-11] MEDS: BUMETANIDE 2 MG TABLET GT ×2 (08:44→22:43)
[2023-05-11] MEDS: POTASSIUM CHLORIDE 20 MEQ TAB.ER.PRT GT ×2 (08:45→22:47)
[2023-05-11] MEDS: levETIRAcetam 750 MG TABLET GT ×2 (08:45→22:46)
[2023-05-11] MEDS: MULTIVITAMIN 1 TAB TABLET GT (08:45)
[2023-05-11] MEDS: VALPROIC ACID 250 MG/5 ML 1000 MG GT (08:46)
--- NOTE | 2023-05-11 15:36 | PC.DIETICIAN ---
Dietitian recommendation:Change from weight loss regimen to weight maintenance regimen. Increase TF by 5ml/hr. Jevity 1.5@ 50ml/hr x22hrs hold for Levothyroxine. Provides:1100ml total vol,1650kcal, 70g protein. Thank you
[2023-05-12] VITALS (12 sets, daily range): BP systolic 93–127; BP diastolic 64–69; PULSE 74–104; RESP 18–22; TEMP 36.2–36.6; O2SAT 96–99
[2023-05-12] MEDS: IPRATROPIUM/ALBUTEROL 3 ML AMPUL.NEB INH ×4 (00:35→18:45)
[2023-05-12] MEDS: LEVOTHYROXINE 50 MCG TABLET GT (05:29)
[2023-05-12] MEDS: acetaZOLAMIDE 250 MG TABLET GT ×2 (08:32→20:53)
[2023-05-12] MEDS: BUMETANIDE 2 MG TABLET GT ×2 (08:32→20:53)
[2023-05-12] MEDS: FAMOTIDINE 20 MG TABLET GT (08:33)
[2023-05-12] MEDS: levETIRAcetam 750 MG TABLET GT ×2 (08:33→20:55)
[2023-05-12] MEDS: FERROUS SULFATE 220 MG/5 ML ELIXIR 330 MG GT (08:33)
[2023-05-12] MEDS: MULTIVITAMIN 1 TAB TABLET GT (08:33)
[2023-05-12] MEDS: POTASSIUM CHLORIDE 20 MEQ TAB.ER.PRT GT ×2 (08:33→20:56)
[2023-05-12] MEDS: VALPROIC ACID 250 MG/5 ML 1000 MG GT (08:34)
[2023-05-12] MEDS: ACETAMINOPHEN 325 MG TABLET 650 MG GT (08:36)
--- NOTE | 2023-05-12 13:51 | PC.SS ---
Resident seen by DDGloria/Dr. Beckford, had teeth cleaning done with no new orders or recommendations. Staff assisted during teeth cleaning due to resident moving not allowing dentist to clean teeth, resident tolerated treatment.
[2023-05-12] MEDS: LACTULOSE 10 GM/15 ML SOLUTION GT ×2 (14:14→20:56)
[2023-05-13] VITALS (11 sets, daily range): BP systolic 102–119; BP diastolic 62–77; PULSE 72–100; RESP 20–22; TEMP 36.3–36.4; O2SAT 96–100
[2023-05-13] MEDS: IPRATROPIUM/ALBUTEROL 3 ML AMPUL.NEB INH ×4 (00:30→18:20)
[2023-05-13] MEDS: LEVOTHYROXINE 50 MCG TABLET GT (05:24)
[2023-05-13] MEDS: LACTULOSE 10 GM/15 ML SOLUTION GT ×3 (05:24→21:11)
[2023-05-13] MEDS: acetaZOLAMIDE 250 MG TABLET GT ×2 (08:33→21:09)
[2023-05-13] MEDS: FAMOTIDINE 20 MG TABLET GT (08:34)
[2023-05-13] MEDS: FERROUS SULFATE 220 MG/5 ML ELIXIR 330 MG GT (08:34)
[2023-05-13] MEDS: BUMETANIDE 2 MG TABLET GT ×2 (08:34→21:10)
[2023-05-13] MEDS: VALPROIC ACID 250 MG/5 ML 1000 MG GT (08:35)
[2023-05-13] MEDS: POTASSIUM CHLORIDE 20 MEQ TAB.ER.PRT GT ×2 (08:35→21:11)
[2023-05-13] MEDS: MULTIVITAMIN 1 TAB TABLET GT (08:35)
[2023-05-13] MEDS: levETIRAcetam 750 MG TABLET GT ×2 (08:35→21:11)
--- NOTE | 2023-05-13 21:55 | PD.SAPROG ---
Progress Note - SubAcute SUBJECTIVE Fever:: none GI:: none Shortness of Breath:: none GI:: no complaints Pain:: none OBJECTIVE Most recent vital signs: Last Vital Signs Temp 97.5 F 05/13/23 17:48 Pulse 87 05/13/23 21:11 Resp 20 05/13/23 17:48 BP 105/74 05/13/23 21:11 Pulse Ox 99 05/13/23 17:48 O2 Del Method Mechanical Ventilation 05/13/23 06:00 FiO2 33 05/13/23 12:30 Neurological:: awake Speech:: nods head and appropriate (Sometimes) Answers questions:: sometimes Respiratory:: lungs clear Cardiovascular: RRR Abdomen: soft and nontender Decubitus:: none Tracheostomy:: to ventilator Feeding per:: G tube Complaints:: none ASSESSMENT & PLAN Assessment: Patient with cognitive function delay, ventilator dependent. No distress. Stable condition. Diagnosis and treatment reviewed. Pt does not tolerate weaning from Ventilator. Plan: Current treatment continued
[2023-05-14] VITALS (11 sets, daily range): BP systolic 95–145; BP diastolic 56–83; PULSE 55–105; RESP 17–25; TEMP 35.9–36.4; O2SAT 97–100
[2023-05-14] MEDS: IPRATROPIUM/ALBUTEROL 3 ML AMPUL.NEB INH ×4 (00:20→18:05)
[2023-05-14] MEDS: LACTULOSE 10 GM/15 ML SOLUTION GT ×3 (05:15→21:15)
[2023-05-14] MEDS: LEVOTHYROXINE 50 MCG TABLET GT (05:15)
[2023-05-14] MEDS: acetaZOLAMIDE 250 MG TABLET GT ×2 (08:31→21:12)
[2023-05-14] MEDS: BUMETANIDE 2 MG TABLET GT ×2 (08:33→21:12)
[2023-05-14] MEDS: levETIRAcetam 750 MG TABLET GT ×2 (08:34→21:14)
[2023-05-14] MEDS: MULTIVITAMIN 1 TAB TABLET GT (08:34)
[2023-05-14] MEDS: FERROUS SULFATE 220 MG/5 ML ELIXIR 330 MG GT (08:34)
[2023-05-14] MEDS: POTASSIUM CHLORIDE 20 MEQ TAB.ER.PRT GT ×2 (08:34→21:15)
[2023-05-14] MEDS: FAMOTIDINE 20 MG TABLET GT (08:34)
[2023-05-14] MEDS: VALPROIC ACID 250 MG/5 ML 1000 MG GT (08:36)
--- NOTE | 2023-05-14 10:30 | CHAP ---
Patient seemed to appreciate visit and prayer.
--- NOTE | 2023-05-14 16:54 | PC.SS ---
Room visit: Resident is laying in bed with head of the bed elevated with call light properly placed with no signs of distress. Resident mood and behavior is adequate, no changes. Resident will remain in current care as this resident is total care and requires 24 hour care. Resident will have all needs met by staff and will be offered daily room visits for any support needed.
[2023-05-15] VITALS (10 sets, daily range): BP systolic 90–111; BP diastolic 57–80; PULSE 85–103; RESP 20–25; TEMP 36.2–36.5; O2SAT 96–99
[2023-05-15] MEDS: IPRATROPIUM/ALBUTEROL 3 ML AMPUL.NEB INH ×4 (01:20→18:20)
[2023-05-15] MEDS: LACTULOSE 10 GM/15 ML SOLUTION GT ×3 (05:29→20:54)
[2023-05-15] MEDS: LEVOTHYROXINE 50 MCG TABLET GT (05:30)
[2023-05-15] MEDS: POTASSIUM CHLORIDE 20 MEQ TAB.ER.PRT GT ×2 (09:03→20:52)
[2023-05-15] MEDS: acetaZOLAMIDE 250 MG TABLET GT ×2 (09:03→20:52)
[2023-05-15] MEDS: BUMETANIDE 2 MG TABLET GT ×2 (09:03→20:52)
[2023-05-15] MEDS: VALPROIC ACID 250 MG/5 ML 1000 MG GT (09:04)
[2023-05-15] MEDS: MULTIVITAMIN 1 TAB TABLET GT (09:04)
[2023-05-15] MEDS: FERROUS SULFATE 220 MG/5 ML ELIXIR 330 MG GT (09:04)
[2023-05-15] MEDS: FAMOTIDINE 20 MG TABLET GT (09:04)
[2023-05-15] MEDS: levETIRAcetam 750 MG TABLET GT ×2 (09:04→20:54)
[2023-05-15] MEDS: ACETAMINOPHEN 325 MG TABLET 650 MG GT (09:05)
[2023-05-16] VITALS (10 sets, daily range): BP systolic 93–112; BP diastolic 60–68; PULSE 70–98; RESP 20–25; TEMP 36.1–36.7; O2SAT 96–100
[2023-05-16] MEDS: IPRATROPIUM/ALBUTEROL 3 ML AMPUL.NEB INH ×4 (00:50→18:50)
[2023-05-16] MEDS: LEVOTHYROXINE 50 MCG TABLET GT (05:26)
[2023-05-16] MEDS: LACTULOSE 10 GM/15 ML SOLUTION GT ×3 (05:26→21:19)
[2023-05-16] MEDS: acetaZOLAMIDE 250 MG TABLET GT ×2 (08:38→20:32)
[2023-05-16] MEDS: BUMETANIDE 2 MG TABLET GT ×2 (08:39→20:32)
[2023-05-16] MEDS: FERROUS SULFATE 220 MG/5 ML ELIXIR 330 MG GT (08:40)
[2023-05-16] MEDS: POTASSIUM CHLORIDE 20 MEQ TAB.ER.PRT GT ×2 (08:40→20:33)
[2023-05-16] MEDS: VALPROIC ACID 250 MG/5 ML 1000 MG GT (08:40)
[2023-05-16] MEDS: MULTIVITAMIN 1 TAB TABLET GT (08:40)
[2023-05-16] MEDS: FAMOTIDINE 20 MG TABLET GT (08:40)
[2023-05-16] MEDS: levETIRAcetam 750 MG TABLET GT ×2 (08:40→20:33)
[2023-05-17] VITALS (11 sets, daily range): BP systolic 92–102; BP diastolic 58–74; PULSE 81–96; RESP 20–24; TEMP 36.1–36.5; O2SAT 95–100
[2023-05-17] MEDS: IPRATROPIUM/ALBUTEROL 3 ML AMPUL.NEB INH ×4 (00:20→18:43)
[2023-05-17] MEDS: LACTULOSE 10 GM/15 ML SOLUTION GT ×3 (05:20→21:06)
[2023-05-17] MEDS: LEVOTHYROXINE 50 MCG TABLET GT (05:20)
[2023-05-17] MEDS: acetaZOLAMIDE 250 MG TABLET GT ×2 (08:51→21:04)
[2023-05-17] MEDS: BUMETANIDE 2 MG TABLET GT ×2 (08:53→21:04)
[2023-05-17] MEDS: FAMOTIDINE 20 MG TABLET GT (08:54)
[2023-05-17] MEDS: CARBAMIDE PEROXIDE OTIC SOL 15 ML BTL 5 DROP BOTH EARS ×2 (08:54→21:04)
[2023-05-17] MEDS: FERROUS SULFATE 220 MG/5 ML ELIXIR 330 MG GT (08:55)
[2023-05-17] MEDS: levETIRAcetam 750 MG TABLET GT ×2 (08:56→21:06)
[2023-05-17] MEDS: POTASSIUM CHLORIDE 20 MEQ TAB.ER.PRT GT ×2 (08:56→21:06)
[2023-05-17] MEDS: VALPROIC ACID 250 MG/5 ML 1000 MG GT (08:56)
[2023-05-17] MEDS: MULTIVITAMIN 1 TAB TABLET GT (09:00)
--- NOTE | 2023-05-17 17:05 | PD.SAPROG ---
Progress Note - SubAcute SUBJECTIVE Fever:: none GI:: none Shortness of Breath:: none GI:: no complaints Pain:: none OBJECTIVE Most recent vital signs: Last Vital Signs Temp 97.2 F 05/18/23 06:00 Pulse 82 05/18/23 06:00 Resp 21 H 05/18/23 06:00 BP 111/69 05/18/23 06:00 Pulse Ox 99 05/18/23 06:00 O2 Del Method Mechanical Ventilation 05/17/23 18:00 FiO2 33 05/18/23 01:00 Neurological:: awake Speech:: nods head and appropriate (Sometimes) Answers questions:: sometimes Respiratory:: lungs clear Cardiovascular: RRR Abdomen: soft and nontender Decubitus:: none Tracheostomy:: to ventilator Feeding per:: G tube Complaints:: none ASSESSMENT & PLAN Assessment: Patient with cognitive function delay, ventilator dependent. No distress. Stable condition. Diagnosis and treatment reviewed. Pt does not tolerate weaning from Ventilator. Plan: Current treatment continued
[2023-05-18] VITALS (11 sets, daily range): BP systolic 98–111; BP diastolic 57–72; PULSE 63–101; RESP 19–27; TEMP 36.2–36.6; O2SAT 98–100
[2023-05-18] MEDS: IPRATROPIUM/ALBUTEROL 3 ML AMPUL.NEB INH ×4 (01:00→18:57)
[2023-05-18] MEDS: LACTULOSE 10 GM/15 ML SOLUTION GT ×3 (05:17→22:43)
[2023-05-18] MEDS: LEVOTHYROXINE 50 MCG TABLET GT (05:18)
[2023-05-18] MEDS: acetaZOLAMIDE 250 MG TABLET GT ×2 (08:49→20:35)
[2023-05-18] MEDS: BUMETANIDE 2 MG TABLET GT ×2 (08:50→20:36)
[2023-05-18] MEDS: CARBAMIDE PEROXIDE OTIC SOL 15 ML BTL 5 DROP BOTH EARS ×2 (08:50→20:36)
[2023-05-18] MEDS: MULTIVITAMIN 1 TAB TABLET GT (08:51)
[2023-05-18] MEDS: FAMOTIDINE 20 MG TABLET GT (08:51)
[2023-05-18] MEDS: FERROUS SULFATE 220 MG/5 ML ELIXIR 330 MG GT (08:51)
[2023-05-18] MEDS: POTASSIUM CHLORIDE 20 MEQ TAB.ER.PRT GT ×2 (08:51→20:38)
[2023-05-18] MEDS: levETIRAcetam 750 MG TABLET GT ×2 (08:51→20:38)
[2023-05-18] MEDS: VALPROIC ACID 250 MG/5 ML 1000 MG GT (08:52)
[2023-05-19] VITALS (13 sets, daily range): BP systolic 108–120; BP diastolic 69–73; PULSE 61–111; RESP 20–26; TEMP 36.2–36.6; O2SAT 96–100
[2023-05-19] MEDS: IPRATROPIUM/ALBUTEROL 3 ML AMPUL.NEB INH ×4 (01:55→19:05)
[2023-05-19] MEDS: LACTULOSE 10 GM/15 ML SOLUTION GT ×3 (05:12→21:30)
[2023-05-19] MEDS: LEVOTHYROXINE 50 MCG TABLET GT (05:12)
[2023-05-19] MEDS: acetaZOLAMIDE 250 MG TABLET GT ×2 (08:58→21:29)
[2023-05-19] MEDS: CARBAMIDE PEROXIDE OTIC SOL 15 ML BTL 5 DROP BOTH EARS (08:59)
[2023-05-19] MEDS: BUMETANIDE 2 MG TABLET GT ×2 (08:59→21:29)
[2023-05-19] MEDS: CARVEDILOL 3.125 MG TABLET GT ×2 (09:00→21:29)
[2023-05-19] MEDS: FAMOTIDINE 20 MG TABLET GT (09:00)
[2023-05-19] MEDS: FERROUS SULFATE 220 MG/5 ML ELIXIR 330 MG GT (09:01)
[2023-05-19] MEDS: levETIRAcetam 750 MG TABLET GT ×2 (09:01→21:29)
[2023-05-19] MEDS: POTASSIUM CHLORIDE 20 MEQ TAB.ER.PRT GT ×2 (09:02→21:30)
[2023-05-19] MEDS: MULTIVITAMIN 1 TAB TABLET GT (09:02)
[2023-05-19] MEDS: VALPROIC ACID 250 MG/5 ML 1000 MG GT (09:03)
[2023-05-19] MEDS: ACETAMINOPHEN 325 MG TABLET 650 MG GT ×2 (09:04→21:31)
[2023-05-19] MEDS: MAGNESIUM HYDROXIDE 30 ML ORAL SUSP ML GT (11:00)
--- NOTE | 2023-05-19 14:20 | PC.SS ---
Room visit: Resident is laying in bed with head of the bed elevated, resident has call light properly placed with no no signs of distress. Resident will remain in current care as there are no changes in care or condition. Resident is total care, all needs to be met in facility for LTC. Resident is unable to return home due to family unable to care for at home. Resident will continue to have daily room visit and will be offered support visit as needed.
[2023-05-19] MEDS: guaiFENesin Liq 100 MG/5 ML LIQUID 300 MG GT (21:31)
[2023-05-19] MEDS: bisacodyL 10 MG SUPP.RECT PR (23:00)
[2023-05-20] VITALS (11 sets, daily range): BP systolic 95–106; BP diastolic 60–66; PULSE 66–94; RESP 18–27; TEMP 36.3–36.5; O2SAT 97–100
[2023-05-20] MEDS: IPRATROPIUM/ALBUTEROL 3 ML AMPUL.NEB INH ×4 (00:15→19:00)
[2023-05-20] MEDS: LACTULOSE 10 GM/15 ML SOLUTION GT ×3 (05:34→21:44)
[2023-05-20] MEDS: LEVOTHYROXINE 50 MCG TABLET GT (05:34)
[2023-05-20] MEDS: acetaZOLAMIDE 250 MG TABLET GT ×2 (08:21→21:42)
[2023-05-20] MEDS: FERROUS SULFATE 220 MG/5 ML ELIXIR 330 MG GT (08:22)
[2023-05-20] MEDS: FAMOTIDINE 20 MG TABLET GT (08:22)
[2023-05-20] MEDS: BUMETANIDE 2 MG TABLET GT ×2 (08:22→21:42)
[2023-05-20] MEDS: MULTIVITAMIN 1 TAB TABLET GT (08:23)
[2023-05-20] MEDS: VALPROIC ACID 250 MG/5 ML 1000 MG GT (08:23)
[2023-05-20] MEDS: POTASSIUM CHLORIDE 20 MEQ TAB.ER.PRT GT ×2 (08:23→21:44)
[2023-05-20] MEDS: levETIRAcetam 750 MG TABLET GT ×2 (08:23→21:43)
[2023-05-21] VITALS (13 sets, daily range): BP systolic 93–108; BP diastolic 54–90; PULSE 71–109; RESP 20–27; TEMP 36.2–36.8; O2SAT 97–100
[2023-05-21] MEDS: IPRATROPIUM/ALBUTEROL 3 ML AMPUL.NEB INH ×4 (00:05→18:21)
[2023-05-21] MEDS: CARBAMIDE PEROXIDE OTIC SOL 15 ML BTL 5 DROP BOTH EARS (01:12)
[2023-05-21] MEDS: LEVOTHYROXINE 50 MCG TABLET GT (06:19)
[2023-05-21] MEDS: LACTULOSE 10 GM/15 ML SOLUTION GT ×3 (06:19→21:45)
[2023-05-21] MEDS: BUMETANIDE 2 MG TABLET GT ×2 (08:56→21:10)
[2023-05-21] MEDS: acetaZOLAMIDE 250 MG TABLET GT ×2 (08:56→21:10)
[2023-05-21] MEDS: FAMOTIDINE 20 MG TABLET GT (08:57)
[2023-05-21] MEDS: FERROUS SULFATE 220 MG/5 ML ELIXIR 330 MG GT (08:58)
[2023-05-21] MEDS: levETIRAcetam 750 MG TABLET GT ×2 (08:58→21:12)
[2023-05-21] MEDS: POTASSIUM CHLORIDE 20 MEQ TAB.ER.PRT GT ×2 (08:59→21:12)
[2023-05-21] MEDS: MULTIVITAMIN 1 TAB TABLET GT (08:59)
[2023-05-21] MEDS: VALPROIC ACID 250 MG/5 ML 1000 MG GT (08:59)
--- NOTE | 2023-05-21 14:20 | PD.SAPROG ---
Progress Note - SubAcute SUBJECTIVE Fever:: none GI:: none Shortness of Breath:: none GI:: no complaints Pain:: none OBJECTIVE Most recent vital signs: Last Vital Signs Temp 97.4 F 05/23/23 05:56 Pulse 94 05/23/23 09:40 Resp 20 05/23/23 05:56 BP 99/61 05/23/23 09:40 Pulse Ox 99 05/23/23 05:56 O2 Del Method Mechanical Ventilation 05/23/23 05:56 FiO2 33 05/23/23 05:56 Neurological:: awake Speech:: nods head and appropriate (Sometimes) Answers questions:: sometimes Respiratory:: lungs clear Cardiovascular: RRR Abdomen: soft and nontender Decubitus:: none Tracheostomy:: to ventilator Feeding per:: G tube Complaints:: none ASSESSMENT & PLAN Assessment: Patient with cognitive function delay, ventilator dependent. No distress. Stable condition. Diagnosis and treatment reviewed. Pt does not tolerate weaning from Ventilator. Plan: Current treatment continued
[2023-05-22] VITALS (12 sets, daily range): BP systolic 93–113; BP diastolic 57–67; PULSE 51–97; RESP 16–26; TEMP 36.1–36.6; O2SAT 96–100
[2023-05-22] MEDS: LACTULOSE 10 GM/15 ML SOLUTION GT ×3 (05:21→21:10)
[2023-05-22] MEDS: LEVOTHYROXINE 50 MCG TABLET GT (05:21)
[2023-05-22] MEDS: IPRATROPIUM/ALBUTEROL 3 ML AMPUL.NEB INH ×3 (06:30→19:00)
[2023-05-22] MEDS: BUMETANIDE 2 MG TABLET GT ×2 (09:19→20:28)
[2023-05-22] MEDS: acetaZOLAMIDE 250 MG TABLET GT ×2 (09:19→20:27)
[2023-05-22] MEDS: POTASSIUM CHLORIDE 20 MEQ TAB.ER.PRT GT ×2 (09:21→20:30)
[2023-05-22] MEDS: FERROUS SULFATE 220 MG/5 ML ELIXIR 330 MG GT (09:21)
[2023-05-22] MEDS: MULTIVITAMIN 1 TAB TABLET GT (09:21)
[2023-05-22] MEDS: levETIRAcetam 750 MG TABLET GT ×2 (09:21→21:10)
[2023-05-22] MEDS: FAMOTIDINE 20 MG TABLET GT (09:21)
[2023-05-22] MEDS: VALPROIC ACID 250 MG/5 ML 1000 MG GT (09:22)
[2023-05-23] VITALS (10 sets, daily range): BP systolic 99–114; BP diastolic 61–77; PULSE 82–101; RESP 20–25; TEMP 36.3–36.8; O2SAT 96–100
[2023-05-23] MEDS: IPRATROPIUM/ALBUTEROL 3 ML AMPUL.NEB INH ×4 (00:10→18:00)
[2023-05-23] MEDS: BUMETANIDE 2 MG TABLET GT ×2 (09:37→20:40)
[2023-05-23] MEDS: acetaZOLAMIDE 250 MG TABLET GT ×2 (09:39→20:40)
[2023-05-23] MEDS: FAMOTIDINE 20 MG TABLET GT (09:41)
[2023-05-23] MEDS: FERROUS SULFATE 220 MG/5 ML ELIXIR 330 MG GT (09:41)
[2023-05-23] MEDS: levETIRAcetam 750 MG TABLET GT ×2 (09:43→20:41)
[2023-05-23] MEDS: MULTIVITAMIN 1 TAB TABLET GT (09:43)
[2023-05-23] MEDS: POTASSIUM CHLORIDE 20 MEQ TAB.ER.PRT GT ×2 (09:43→20:41)
[2023-05-23] MEDS: VALPROIC ACID 250 MG/5 ML 1000 MG GT (09:44)
[2023-05-23] MEDS: LACTULOSE 10 GM/15 ML SOLUTION GT ×2 (14:03→22:54)
[2023-05-23] MEDS: MAGNESIUM HYDROXIDE 30 ML ORAL SUSP ML GT (15:46)
[2023-05-24] VITALS (13 sets, daily range): BP systolic 93–110; BP diastolic 58–67; PULSE 67–105; RESP 20–25; TEMP 36.2–36.3; O2SAT 97–100
[2023-05-24] MEDS: IPRATROPIUM/ALBUTEROL 3 ML AMPUL.NEB INH ×4 (01:00→18:30)
[2023-05-24] MEDS: LACTULOSE 10 GM/15 ML SOLUTION GT ×2 (05:52→20:54)
[2023-05-24] MEDS: LEVOTHYROXINE 50 MCG TABLET GT (05:52)
[2023-05-24] MEDS: acetaZOLAMIDE 250 MG TABLET GT ×2 (09:26→20:55)
[2023-05-24] MEDS: BUMETANIDE 2 MG TABLET GT ×2 (09:26→20:55)
[2023-05-24] MEDS: FAMOTIDINE 20 MG TABLET GT (09:28)
[2023-05-24] MEDS: levETIRAcetam 750 MG TABLET GT ×2 (09:28→20:56)
[2023-05-24] MEDS: FERROUS SULFATE 220 MG/5 ML ELIXIR 330 MG GT (09:28)
[2023-05-24] MEDS: POTASSIUM CHLORIDE 20 MEQ TAB.ER.PRT GT ×2 (09:29→20:56)
[2023-05-24] MEDS: MULTIVITAMIN 1 TAB TABLET GT (09:29)
[2023-05-24] MEDS: VALPROIC ACID 250 MG/5 ML 1000 MG GT (09:29)
[2023-05-24] MEDS: CARVEDILOL 3.125 MG TABLET GT (09:31)
--- NOTE | 2023-05-24 16:26 | PC.SS ---
Resident was seen by Hull Molder, he tolerated treatment well. Resident to continue current care as there are no new orders or recommendations.
[2023-05-25] VITALS (10 sets, daily range): BP systolic 90–107; BP diastolic 55–72; PULSE 57–105; RESP 20–29; TEMP 36.3–36.9; O2SAT 95–100
[2023-05-25] MEDS: IPRATROPIUM/ALBUTEROL 3 ML AMPUL.NEB INH ×4 (00:38→18:20)
[2023-05-25] MEDS: LEVOTHYROXINE 50 MCG TABLET GT (05:17)
[2023-05-25] MEDS: LACTULOSE 10 GM/15 ML SOLUTION GT ×3 (05:17→21:28)
[2023-05-25] MEDS: acetaZOLAMIDE 250 MG TABLET GT ×2 (08:54→21:04)
[2023-05-25] MEDS: BUMETANIDE 2 MG TABLET GT ×2 (08:55→21:05)
[2023-05-25] MEDS: FAMOTIDINE 20 MG TABLET GT (08:56)
[2023-05-25] MEDS: FERROUS SULFATE 220 MG/5 ML ELIXIR 330 MG GT (08:57)
[2023-05-25] MEDS: MULTIVITAMIN 1 TAB TABLET GT (08:57)
[2023-05-25] MEDS: levETIRAcetam 750 MG TABLET GT ×2 (08:57→21:07)
[2023-05-25] MEDS: POTASSIUM CHLORIDE 20 MEQ TAB.ER.PRT GT ×2 (08:58→21:07)
[2023-05-25] MEDS: VALPROIC ACID 250 MG/5 ML 1000 MG GT (08:58)
--- NOTE | 2023-05-25 16:17 | PD.SAPROG ---
Progress Note - SubAcute SUBJECTIVE Fever:: none GI:: none Shortness of Breath:: none GI:: no complaints Pain:: none OBJECTIVE Most recent vital signs: Last Vital Signs Temp 97.3 F 05/25/23 12:00 Pulse 94 05/25/23 12:00 Resp 21 H 05/25/23 12:00 BP 101/72 05/25/23 12:00 Pulse Ox 99 05/25/23 12:00 O2 Del Method Mechanical Ventilation 05/24/23 17:26 FiO2 33 05/25/23 12:00 Neurological:: awake Speech:: nods head and appropriate (Sometimes) Answers questions:: sometimes Respiratory:: lungs clear Cardiovascular: RRR Abdomen: soft and nontender Decubitus:: none Tracheostomy:: to ventilator Feeding per:: G tube Complaints:: none ASSESSMENT & PLAN Assessment: Patient with cognitive function delay, ventilator dependent. No distress. Stable condition. Diagnosis and treatment reviewed. Pt does not tolerate weaning from Ventilator. Plan: Current treatment continued
[2023-05-26] VITALS (11 sets, daily range): BP systolic 81–107; BP diastolic 54–69; PULSE 72–95; RESP 20–28; TEMP 36.3–36.6; O2SAT 96–99
[2023-05-26] MEDS: LEVOTHYROXINE 50 MCG TABLET GT (05:31)
[2023-05-26] MEDS: LACTULOSE 10 GM/15 ML SOLUTION GT ×3 (05:31→20:40)
[2023-05-26] MEDS: IPRATROPIUM/ALBUTEROL 3 ML AMPUL.NEB INH ×4 (06:20→19:00)
[2023-05-26] MEDS: acetaZOLAMIDE 250 MG TABLET GT ×2 (09:05→20:40)
[2023-05-26] MEDS: BUMETANIDE 2 MG TABLET GT ×2 (09:06→20:40)
[2023-05-26] MEDS: FERROUS SULFATE 220 MG/5 ML ELIXIR 330 MG GT (09:07)
[2023-05-26] MEDS: MULTIVITAMIN 1 TAB TABLET GT (09:07)
[2023-05-26] MEDS: levETIRAcetam 750 MG TABLET GT ×2 (09:07→20:42)
[2023-05-26] MEDS: FAMOTIDINE 20 MG TABLET GT (09:07)
[2023-05-26] MEDS: POTASSIUM CHLORIDE 20 MEQ TAB.ER.PRT GT ×2 (09:07→20:43)
[2023-05-26] MEDS: VALPROIC ACID 250 MG/5 ML 1000 MG GT (09:08)
[2023-05-26] MEDS: MAGNESIUM HYDROXIDE 30 ML ORAL SUSP ML GT (20:43)
[2023-05-26] MEDS: ACETAMINOPHEN 325 MG TABLET 650 MG GT (21:00)
--- NOTE | 2023-05-26 22:06 | PC.CWCCOMPLE ---
[employer] Pharmacist monthly MRR
[2023-05-26] MEDS: guaiFENesin Liq 100 MG/5 ML LIQUID 300 MG GT (22:54)
[2023-05-27] VITALS (11 sets, daily range): BP systolic 94–125; BP diastolic 66–95; PULSE 65–98; RESP 18–29; TEMP 36.1–36.7; O2SAT 97–100
[2023-05-27] MEDS: IPRATROPIUM/ALBUTEROL 3 ML AMPUL.NEB INH ×4 (00:49→19:24)
[2023-05-27] MEDS: LACTULOSE 10 GM/15 ML SOLUTION GT ×2 (05:11→14:47)
[2023-05-27] MEDS: LEVOTHYROXINE 50 MCG TABLET GT (05:11)
[2023-05-27] MEDS: acetaZOLAMIDE 250 MG TABLET GT ×2 (09:14→21:07)
[2023-05-27] MEDS: BUMETANIDE 2 MG TABLET GT ×2 (09:14→21:28)
[2023-05-27] MEDS: FAMOTIDINE 20 MG TABLET GT (09:15)
[2023-05-27] MEDS: levETIRAcetam 750 MG TABLET GT ×2 (09:16→21:08)
[2023-05-27] MEDS: POTASSIUM CHLORIDE 20 MEQ TAB.ER.PRT GT ×2 (09:16→21:09)
[2023-05-27] MEDS: MULTIVITAMIN 1 TAB TABLET GT (09:16)
[2023-05-27] MEDS: VALPROIC ACID 250 MG/5 ML 1000 MG GT (09:19)
[2023-05-27] MEDS: FERROUS SULFATE 220 MG/5 ML ELIXIR 330 MG GT (09:40)
--- NOTE | 2023-05-27 09:52 | PD.SAPROG ---
Progress Note - SubAcute SUBJECTIVE Fever:: none GI:: none Shortness of Breath:: none GI:: no complaints Pain:: none OBJECTIVE Most recent vital signs: Last Vital Signs Temp 97.1 F 05/27/23 05:55 Pulse 65 05/27/23 09:15 Resp 20 05/27/23 05:55 BP 107/66 05/27/23 09:15 Pulse Ox 100 05/27/23 05:55 O2 Del Method Mechanical Ventilation 05/26/23 06:00 FiO2 33 05/27/23 00:49 Neurological:: awake Speech:: nods head and appropriate (Sometimes) Answers questions:: sometimes Respiratory:: lungs clear Cardiovascular: RRR Abdomen: soft and nontender Decubitus:: none Tracheostomy:: to ventilator Feeding per:: G tube Complaints:: none ASSESSMENT & PLAN Assessment: Patient with cognitive function delay, ventilator dependent. No distress. Stable condition. Diagnosis and treatment reviewed. Pt does not tolerate weaning from Ventilator. Plan: Current treatment continued
--- NOTE | 2023-05-27 16:20 | PD.SAHP ---
Physical exam Physical Exam Vital signs: Temp Pulse Resp BP Pulse Ox O2 Del Method FiO2 97.9 F 82 24 H 116/76 99 Mechanical Ventilation 30 06/23/23 05:47 06/23/23 05:47 06/23/23 05:47 06/23/23 05:47 06/23/23 05:47 06/21/23 12:00 06/23/23 01:23 Narrative: An updated H&P for patient admitted on 06/25/2021 Constitutional Constitutional: no acute distress Comments: Patient awake, alert, responds to simple questions appropriately with nods, slow mentation, no fever, vital signs stable. On ventilator tolerating it well. HEENT Exam Head: Present normocephalic Eye: Present EOMI and PERRL ENT: Present mucous membranes moist Neck Exam Neck: Present supple and trachea midline Chest/Breast/Axilla Exam Comments: NAD Respiratory Exam Comments: Patient breathing comfortably, on ventilatory support through tracheostomy. No use of accessory respiratory muscles. Fair chest expansion. Normal breath sounds. No wheezing or rhonchi. Cardiovascular Exam Cardiovascular: Present RRR, S1 and S2 Abdominal Exam Abdominal: Present soft and normoactive bowel sounds Rectal Exam Comments: Deferred Exam Comments: NAD Extremities Exam Comments: Patient moves all extremities fairly well. No peripheral edema Back/Spine/Pelvis Exam Comments: NAD Skin Exam Skin: Present intact Comments: NAD Neurological Exam Neurological: Present alert, CN II-XII intact, normal reflexes, moving all extremities and normal tone Comments: Patient with diagnosis of cerebral palsy. Slow mentation. Responds appropriately with gestures and nods of the head and occasionally mouth some words. Rehabilitation potential Diagnosis (1) Chronic respiratory failure with hypoxia: Status: Chronic Assessment & Plan: Oxygen saturations maintained above 90%. (2) Dependent on ventilator: Status: Chronic Assessment & Plan: Not tolerating weaning attempts but very comfortable on the current settings. (3) Congestive cardiac failure: Status: Chronic Assessment & Plan: Stable (4) Epilepsy, unspecified, intractable, without status epilepticus: Status: Chronic Assessment & Plan: Stable on current treatment (5) Anemia: Status: Chronic Assessment & Plan: Macrocytic anemia on supplements (6) Hypothyroidism, unspecified: Status: Chronic Assessment & Plan: Stable on current treatment (7) Developmental disorder of scholastic skills, unspecified: Status: Chronic Assessment & Plan: Patient can still communicate his needs to some extent but not cognizant as regards details of his condition (8) Age-related osteoporosis without current pathological fracture: Status: Chronic (9) Gastrostomy status: Status: Chronic Assessment & Plan: Functioning well (10) Tracheostomy status: Status: Chronic Assessment & Plan Assessment: Patient with cognitive function sara. ventilator dependent. No distress. Stable condition. Diagnosis and treatment reviewed. Pt does not tolerate weaning from Ventilator. Family updated in IDT Plan: Current treatment continued
[2023-05-27] MEDS: CARVEDILOL 3.125 MG TABLET GT (21:07)
[2023-05-28] VITALS (13 sets, daily range): BP systolic 91–126; BP diastolic 53–79; PULSE 68–101; RESP 16–23; TEMP 36.1–36.2; O2SAT 96–100
[2023-05-28] MEDS: IPRATROPIUM/ALBUTEROL 3 ML AMPUL.NEB INH ×4 (00:03→19:11)
[2023-05-28] MEDS: LEVOTHYROXINE 50 MCG TABLET GT (05:06)
[2023-05-28] MEDS: CARVEDILOL 3.125 MG TABLET GT (08:59)
[2023-05-28] MEDS: acetaZOLAMIDE 250 MG TABLET GT ×2 (08:59→20:55)
[2023-05-28] MEDS: BUMETANIDE 2 MG TABLET GT ×2 (08:59→20:56)
[2023-05-28] MEDS: FAMOTIDINE 20 MG TABLET GT (09:00)
[2023-05-28] MEDS: levETIRAcetam 750 MG TABLET GT ×2 (09:01→20:58)
[2023-05-28] MEDS: POTASSIUM CHLORIDE 20 MEQ TAB.ER.PRT GT ×2 (09:01→20:59)
[2023-05-28] MEDS: FERROUS SULFATE 220 MG/5 ML ELIXIR 330 MG GT (09:01)
[2023-05-28] MEDS: MULTIVITAMIN 1 TAB TABLET GT (09:01)
[2023-05-28] MEDS: VALPROIC ACID 250 MG/5 ML 1000 MG GT (09:02)
--- NOTE | 2023-05-28 13:31 | PC.SS ---
Resident is laying in bed with head of the bed elevated with call light properly placed with no signs of distress. Resident is well groomed and appears comfortable. Resident is total care unable to make needs known, due to heavy care regimen family is unable to care for resident at home. Resident has no changes in care or condition, resident to remain in current care and continue to be evaluated as appropriate for DC to lower level of care. Family continues to visit daily, SSD will continue to make daily contact with resident and offer emotional support.
[2023-05-28] MEDS: LACTULOSE 10 GM/15 ML SOLUTION GT ×2 (13:54→21:00)
--- NOTE | 2023-05-28 15:14 | PC.SS ---
Resident is laying in bed with head of the bed elevated with call light properly placed with no signs of distress. Resident is well groomed and appears comfortable. Resident is total care unable to make needs known, due to heavy care regimen family is unable to care for resident at home. Resident has no changes in care or condition, resident to remain in current care and continue to be evaluated as appropriate for DC to lower level of care.
[2023-05-29] VITALS (9 sets, daily range): BP systolic 97–113; BP diastolic 62–75; PULSE 65–94; RESP 20–24; TEMP 36.2–36.6; O2SAT 98–100
[2023-05-29] MEDS: IPRATROPIUM/ALBUTEROL 3 ML AMPUL.NEB INH ×4 (01:53→18:45)
[2023-05-29] MEDS: LEVOTHYROXINE 50 MCG TABLET GT (05:00)
[2023-05-29] MEDS: LACTULOSE 10 GM/15 ML SOLUTION GT ×3 (05:00→20:12)
[2023-05-29] MEDS: acetaZOLAMIDE 250 MG TABLET GT ×2 (08:54→20:11)
[2023-05-29] MEDS: BUMETANIDE 2 MG TABLET GT ×2 (08:55→20:11)
[2023-05-29] MEDS: POTASSIUM CHLORIDE 20 MEQ TAB.ER.PRT GT ×2 (08:56→20:11)
[2023-05-29] MEDS: FERROUS SULFATE 220 MG/5 ML ELIXIR 330 MG GT (08:56)
[2023-05-29] MEDS: VALPROIC ACID 250 MG/5 ML 1000 MG GT (08:56)
[2023-05-29] MEDS: FAMOTIDINE 20 MG TABLET GT (08:56)
[2023-05-29] MEDS: MULTIVITAMIN 1 TAB TABLET GT (08:56)
[2023-05-29] MEDS: levETIRAcetam 750 MG TABLET GT ×2 (08:56→20:11)
--- NOTE | 2023-05-29 16:21 | PC.SS ---
[facility] came for dental x-rays, tech unable to get x-rays. SSD will call to reschedule for 2nd attempt.
[2023-05-29] MEDS: CARVEDILOL 3.125 MG TABLET GT (20:11)
[2023-05-30] VITALS (12 sets, daily range): BP systolic 86–117; BP diastolic 56–79; PULSE 69–111; RESP 20–24; TEMP 36.2–36.4; O2SAT 98–100
[2023-05-30] MEDS: IPRATROPIUM/ALBUTEROL 3 ML AMPUL.NEB INH ×4 (00:43→19:26)
[2023-05-30] MEDS: LEVOTHYROXINE 50 MCG TABLET GT (05:32)
[2023-05-30] MEDS: LACTULOSE 10 GM/15 ML SOLUTION GT ×2 (05:32→21:29)
[2023-05-30] MEDS: acetaZOLAMIDE 250 MG TABLET GT ×2 (08:03→20:24)
[2023-05-30] MEDS: CARVEDILOL 3.125 MG TABLET GT (08:04)
[2023-05-30] MEDS: FAMOTIDINE 20 MG TABLET GT (08:04)
[2023-05-30] MEDS: BUMETANIDE 2 MG TABLET GT ×2 (08:04→20:24)
[2023-05-30] MEDS: MULTIVITAMIN 1 TAB TABLET GT (08:08)
[2023-05-30] MEDS: VALPROIC ACID 250 MG/5 ML 1000 MG GT (08:08)
[2023-05-30] MEDS: levETIRAcetam 750 MG TABLET GT ×2 (08:08→20:25)
[2023-05-30] MEDS: POTASSIUM CHLORIDE 20 MEQ TAB.ER.PRT GT ×2 (08:08→20:26)
[2023-05-30] MEDS: FERROUS SULFATE 220 MG/5 ML ELIXIR 330 MG GT (08:08)
--- NOTE | 2023-05-30 10:57 | CHAP ---
Patient was visited by the Spiritual Care Volunteer who prayed for them. (Volunteer was in [facility] from 10:15-12:55).
[2023-05-30] MEDS: MAGNESIUM HYDROXIDE 30 ML ORAL SUSP ML GT (21:29)
[2023-05-31] VITALS (11 sets, daily range): BP systolic 93–110; BP diastolic 61–73; PULSE 60–102; RESP 20–24; TEMP 36.1–36.4; O2SAT 97–100
[2023-05-31] MEDS: IPRATROPIUM/ALBUTEROL 3 ML AMPUL.NEB INH ×4 (00:33→19:46)
[2023-05-31] MEDS: LEVOTHYROXINE 50 MCG TABLET GT (05:18)
[2023-05-31] MEDS: LACTULOSE 10 GM/15 ML SOLUTION GT (05:18)
[2023-05-31] MEDS: BUMETANIDE 2 MG TABLET GT ×2 (08:06→21:10)
[2023-05-31] MEDS: acetaZOLAMIDE 250 MG TABLET GT ×2 (08:06→21:10)
[2023-05-31] MEDS: CARVEDILOL 3.125 MG TABLET GT (08:07)
[2023-05-31] MEDS: FERROUS SULFATE 220 MG/5 ML ELIXIR 330 MG GT (08:07)
[2023-05-31] MEDS: FAMOTIDINE 20 MG TABLET GT (08:07)
[2023-05-31] MEDS: VALPROIC ACID 250 MG/5 ML 1000 MG GT (08:08)
[2023-05-31] MEDS: POTASSIUM CHLORIDE 20 MEQ TAB.ER.PRT GT ×2 (08:08→21:11)
[2023-05-31] MEDS: MULTIVITAMIN 1 TAB TABLET GT (08:08)
[2023-05-31] MEDS: levETIRAcetam 750 MG TABLET GT ×2 (08:08→21:11)
--- NOTE | 2023-05-31 18:23 | PD.SAPROG ---
Progress Note - SubAcute SUBJECTIVE Fever:: none GI:: none Shortness of Breath:: none GI:: no complaints Pain:: none OBJECTIVE Most recent vital signs: Last Vital Signs Temp 97.6 F 05/31/23 17:49 Pulse 75 05/31/23 17:49 Resp 24 H 05/31/23 17:49 BP 101/66 05/31/23 17:49 Pulse Ox 99 05/31/23 17:49 O2 Del Method Mechanical Ventilation 05/31/23 06:00 FiO2 34 05/31/23 11:40 Neurological:: awake Speech:: nods head and appropriate (Sometimes) Answers questions:: sometimes Respiratory:: lungs clear Cardiovascular: RRR Abdomen: soft and nontender Decubitus:: none Tracheostomy:: to ventilator Feeding per:: G tube Complaints:: none ASSESSMENT & PLAN Assessment: Patient with cognitive function delay, ventilator dependent. No distress. Stable condition. Diagnosis and treatment reviewed. Pt does not tolerate weaning from Ventilator. Plan: Current treatment continued
[2023-06-01] VITALS (10 sets, daily range): BP systolic 97–105; BP diastolic 60–75; PULSE 61–91; RESP 20–26; TEMP 36.1–36.3; O2SAT 98–99
[2023-06-01] MEDS: IPRATROPIUM/ALBUTEROL 3 ML AMPUL.NEB INH ×4 (00:10→18:41)
[2023-06-01] MEDS: LEVOTHYROXINE 50 MCG TABLET GT (05:30)
[2023-06-01] MEDS: acetaZOLAMIDE 250 MG TABLET GT ×2 (09:31→20:30)
[2023-06-01] MEDS: BUMETANIDE 2 MG TABLET GT ×2 (09:32→20:30)
[2023-06-01] MEDS: FAMOTIDINE 20 MG TABLET GT (09:34)
[2023-06-01] MEDS: FERROUS SULFATE 220 MG/5 ML ELIXIR 330 MG GT (09:35)
[2023-06-01] MEDS: levETIRAcetam 750 MG TABLET GT ×2 (09:35→20:31)
[2023-06-01] MEDS: MULTIVITAMIN 1 TAB TABLET GT (09:36)
[2023-06-01] MEDS: VALPROIC ACID 250 MG/5 ML 1000 MG GT (09:36)
[2023-06-01] MEDS: POTASSIUM CHLORIDE 20 MEQ TAB.ER.PRT GT ×2 (09:36→20:32)
[2023-06-01] MEDS: LACTULOSE 10 GM/15 ML SOLUTION GT (22:00)
[2023-06-02] VITALS (10 sets, daily range): BP systolic 93–119; BP diastolic 65–79; PULSE 59–91; RESP 21–29; TEMP 36.1–36.7; O2SAT 97–100
[2023-06-02] MEDS: LACTULOSE 10 GM/15 ML SOLUTION GT ×3 (05:08→21:17)
[2023-06-02] MEDS: LEVOTHYROXINE 50 MCG TABLET GT (05:08)
[2023-06-02] MEDS: IPRATROPIUM/ALBUTEROL 3 ML AMPUL.NEB INH ×3 (07:20→19:00)
[2023-06-02] MEDS: acetaZOLAMIDE 250 MG TABLET GT ×2 (08:15→20:13)
[2023-06-02] MEDS: BUMETANIDE 2 MG TABLET GT ×2 (08:15→20:14)
[2023-06-02] MEDS: FAMOTIDINE 20 MG TABLET GT (08:16)
[2023-06-02] MEDS: MULTIVITAMIN 1 TAB TABLET GT (08:17)
[2023-06-02] MEDS: FERROUS SULFATE 220 MG/5 ML ELIXIR 330 MG GT (08:17)
[2023-06-02] MEDS: POTASSIUM CHLORIDE 20 MEQ TAB.ER.PRT GT ×2 (08:17→20:14)
[2023-06-02] MEDS: levETIRAcetam 750 MG TABLET GT ×2 (08:17→20:14)
[2023-06-02] MEDS: VALPROIC ACID 250 MG/5 ML 1000 MG GT (08:17)
[2023-06-03] VITALS (12 sets, daily range): BP systolic 93–115; BP diastolic 52–77; PULSE 62–100; RESP 20–26; TEMP 36–36.8; O2SAT 96–100
[2023-06-03] MEDS: LEVOTHYROXINE 50 MCG TABLET GT (05:17)
[2023-06-03] MEDS: LACTULOSE 10 GM/15 ML SOLUTION GT ×3 (05:17→21:05)
[2023-06-03] MEDS: IPRATROPIUM/ALBUTEROL 3 ML AMPUL.NEB INH ×3 (06:29→19:17)
[2023-06-03] MEDS: BUMETANIDE 2 MG TABLET GT ×2 (08:18→20:43)
[2023-06-03] MEDS: acetaZOLAMIDE 250 MG TABLET GT ×2 (08:18→20:43)
[2023-06-03] MEDS: FERROUS SULFATE 220 MG/5 ML ELIXIR 330 MG GT (08:19)
[2023-06-03] MEDS: levETIRAcetam 750 MG TABLET GT ×2 (08:19→20:44)
[2023-06-03] MEDS: FAMOTIDINE 20 MG TABLET GT (08:19)
[2023-06-03] MEDS: VALPROIC ACID 250 MG/5 ML 1000 MG GT (08:20)
[2023-06-03] MEDS: POTASSIUM CHLORIDE 20 MEQ TAB.ER.PRT GT ×2 (08:20→20:44)
[2023-06-03] MEDS: MULTIVITAMIN 1 TAB TABLET GT (08:20)
--- NOTE | 2023-06-03 14:39 | PC.SS ---
Resident received a bedside visit from [facility] counselor Georgi Zamora. Resident is well groomed seen laying in bed with head of the bed elevated with call light properly placed. No questions or concerns from Georgi. Resident is conserved by his father Jeremi Javier, Jeremi was made aware of bedside visit.
[2023-06-03] MEDS: CARVEDILOL 3.125 MG TABLET GT (20:44)
[2023-06-03] MEDS: LOSARTAN 25 MG TABLET GT (20:44)
[2023-06-04] VITALS (10 sets, daily range): BP systolic 96–101; BP diastolic 65–70; PULSE 78–103; RESP 20–24; TEMP 36.3–36.9; O2SAT 95–99
[2023-06-04] MEDS: IPRATROPIUM/ALBUTEROL 3 ML AMPUL.NEB INH ×4 (00:59→19:16)
[2023-06-04] MEDS: LEVOTHYROXINE 50 MCG TABLET GT (05:35)
[2023-06-04] MEDS: LACTULOSE 10 GM/15 ML SOLUTION GT ×3 (05:35→21:22)
[2023-06-04] MEDS: acetaZOLAMIDE 250 MG TABLET GT ×2 (09:01→20:40)
[2023-06-04] MEDS: BUMETANIDE 2 MG TABLET GT ×2 (09:02→20:42)
[2023-06-04] MEDS: FAMOTIDINE 20 MG TABLET GT (09:03)
[2023-06-04] MEDS: FERROUS SULFATE 220 MG/5 ML ELIXIR 330 MG GT (09:03)
[2023-06-04] MEDS: MULTIVITAMIN 1 TAB TABLET GT (09:04)
[2023-06-04] MEDS: levETIRAcetam 750 MG TABLET GT ×2 (09:04→20:41)
[2023-06-04] MEDS: POTASSIUM CHLORIDE 20 MEQ TAB.ER.PRT GT ×2 (09:04→20:41)
[2023-06-04] MEDS: VALPROIC ACID 250 MG/5 ML 1000 MG GT (09:05)
--- NOTE | 2023-06-04 16:09 | PC.SS ---
[facility] here for dental x-rays. Resident is not alert and unable to participate in x-rays. Resident will be seen by DDS for annual consultations and as needed.
--- NOTE | 2023-06-04 16:23 | PC.SS ---
Room visit: Resident is laying in bed with head of the bed elevated with call light properly placed with no cuco of distress. Resident has no changes in care or condition, resident will remain in current care due to heavy and complicated care regimen. Family visits but unable to care for resident at home. SSD will continue to monitor resident for any changes in mood or behavior.
--- NOTE | 2023-06-04 21:59 | PD.SAPROG ---
Progress Note - SubAcute SUBJECTIVE Fever:: none GI:: none Shortness of Breath:: none GI:: no complaints Pain:: none OBJECTIVE Most recent vital signs: Last Vital Signs Temp 97.3 F 06/04/23 17:54 Pulse 79 06/04/23 20:42 Resp 24 H 06/04/23 17:54 BP 101/67 06/04/23 20:42 Pulse Ox 97 06/04/23 17:54 O2 Del Method Mechanical Ventilation 06/04/23 06:00 FiO2 30 06/04/23 12:20 Neurological:: awake Speech:: nods head and appropriate (Sometimes) Answers questions:: sometimes Respiratory:: lungs clear Cardiovascular: RRR Abdomen: soft and nontender Decubitus:: none Tracheostomy:: to ventilator Feeding per:: G tube Complaints:: none ASSESSMENT & PLAN Assessment: Patient with cognitive function delay, ventilator dependent. No distress. Stable condition. Diagnosis and treatment reviewed. Pt does not tolerate weaning from Ventilator. Plan: Current treatment continued
[2023-06-05] VITALS (11 sets, daily range): BP systolic 90–136; BP diastolic 60–78; PULSE 72–106; RESP 20–25; TEMP 36.4–36.6; O2SAT 95–100
[2023-06-05] MEDS: IPRATROPIUM/ALBUTEROL 3 ML AMPUL.NEB INH ×4 (01:20→18:46)
[2023-06-05] MEDS: LEVOTHYROXINE 50 MCG TABLET GT (05:29)
[2023-06-05] MEDS: LACTULOSE 10 GM/15 ML SOLUTION GT ×3 (05:29→21:34)
[2023-06-05] MEDS: acetaZOLAMIDE 250 MG TABLET GT ×2 (08:34→20:11)
[2023-06-05] MEDS: BUMETANIDE 2 MG TABLET GT ×2 (08:34→20:11)
[2023-06-05] MEDS: VALPROIC ACID 250 MG/5 ML 1000 MG GT (08:35)
[2023-06-05] MEDS: POTASSIUM CHLORIDE 20 MEQ TAB.ER.PRT GT ×2 (08:35→20:13)
[2023-06-05] MEDS: FAMOTIDINE 20 MG TABLET GT (08:35)
[2023-06-05] MEDS: MULTIVITAMIN 1 TAB TABLET GT (08:35)
[2023-06-05] MEDS: FERROUS SULFATE 220 MG/5 ML ELIXIR 330 MG GT (08:35)
[2023-06-05] MEDS: levETIRAcetam 750 MG TABLET GT ×2 (08:35→20:12)
[2023-06-05] MEDS: LOSARTAN 25 MG TABLET GT (20:12)
[2023-06-05] MEDS: CARVEDILOL 3.125 MG TABLET GT (20:12)
[2023-06-06] VITALS (12 sets, daily range): BP systolic 89–110; BP diastolic 48–87; PULSE 68–102; RESP 20–29; TEMP 36.3–36.7; O2SAT 98–100
[2023-06-06] MEDS: IPRATROPIUM/ALBUTEROL 3 ML AMPUL.NEB INH ×4 (00:43→18:55)
[2023-06-06] MEDS: LACTULOSE 10 GM/15 ML SOLUTION GT ×3 (05:23→21:59)
[2023-06-06] MEDS: LEVOTHYROXINE 50 MCG TABLET GT (05:23)
[2023-06-06] MEDS: acetaZOLAMIDE 250 MG TABLET GT ×2 (09:38→21:58)
[2023-06-06] MEDS: BUMETANIDE 2 MG TABLET GT ×2 (09:38→21:58)
[2023-06-06] MEDS: levETIRAcetam 750 MG TABLET GT ×2 (09:39→21:59)
[2023-06-06] MEDS: FAMOTIDINE 20 MG TABLET GT (09:39)
[2023-06-06] MEDS: FERROUS SULFATE 220 MG/5 ML ELIXIR 330 MG GT (09:40)
[2023-06-06] MEDS: MULTIVITAMIN 1 TAB TABLET GT (09:40)
[2023-06-06] MEDS: POTASSIUM CHLORIDE 20 MEQ TAB.ER.PRT GT ×2 (09:41→21:59)
[2023-06-06] MEDS: VALPROIC ACID 250 MG/5 ML 1000 MG GT (09:41)
[2023-06-06] MEDS: guaiFENesin Liq 100 MG/5 ML LIQUID 300 MG GT (21:59)
[2023-06-07] VITALS (12 sets, daily range): BP systolic 95–114; BP diastolic 54–71; PULSE 72–104; RESP 20–28; TEMP 36.2–36.6; O2SAT 95–100
[2023-06-07] MEDS: IPRATROPIUM/ALBUTEROL 3 ML AMPUL.NEB INH ×4 (00:15→18:43)
[2023-06-07] MEDS: LACTULOSE 10 GM/15 ML SOLUTION GT ×3 (05:08→21:22)
[2023-06-07] MEDS: LEVOTHYROXINE 50 MCG TABLET GT (05:08)
[2023-06-07] MEDS: BUMETANIDE 2 MG TABLET GT ×2 (08:08→20:38)
[2023-06-07] MEDS: acetaZOLAMIDE 250 MG TABLET GT ×2 (08:08→20:38)
[2023-06-07] MEDS: FERROUS SULFATE 220 MG/5 ML ELIXIR 330 MG GT (08:09)
[2023-06-07] MEDS: POTASSIUM CHLORIDE 20 MEQ TAB.ER.PRT GT ×2 (08:09→20:39)
[2023-06-07] MEDS: levETIRAcetam 750 MG TABLET GT ×2 (08:09→20:39)
[2023-06-07] MEDS: VALPROIC ACID 250 MG/5 ML 1000 MG GT (08:09)
[2023-06-07] MEDS: FAMOTIDINE 20 MG TABLET GT (08:09)
[2023-06-07] MEDS: MULTIVITAMIN 1 TAB TABLET GT (08:09)
[2023-06-08] VITALS (11 sets, daily range): BP systolic 95–119; BP diastolic 66–80; PULSE 69–98; RESP 20–26; TEMP 36–36.4; O2SAT 95–98
[2023-06-08] MEDS: IPRATROPIUM/ALBUTEROL 3 ML AMPUL.NEB INH ×4 (00:05→18:20)
[2023-06-08] MEDS: LACTULOSE 10 GM/15 ML SOLUTION GT ×3 (05:15→21:19)
[2023-06-08] MEDS: LEVOTHYROXINE 50 MCG TABLET GT (05:15)
[2023-06-08] MEDS: acetaZOLAMIDE 250 MG TABLET GT ×2 (08:51→20:38)
[2023-06-08] MEDS: BUMETANIDE 2 MG TABLET GT ×2 (08:52→20:38)
[2023-06-08] MEDS: levETIRAcetam 750 MG TABLET GT ×2 (08:54→20:39)
[2023-06-08] MEDS: FAMOTIDINE 20 MG TABLET GT (08:54)
[2023-06-08] MEDS: MULTIVITAMIN 1 TAB TABLET GT (08:54)
[2023-06-08] MEDS: FERROUS SULFATE 220 MG/5 ML ELIXIR 330 MG GT (08:54)
[2023-06-08] MEDS: POTASSIUM CHLORIDE 20 MEQ TAB.ER.PRT GT ×2 (08:55→20:39)
[2023-06-08] MEDS: VALPROIC ACID 250 MG/5 ML 1000 MG GT (08:56)
--- NOTE | 2023-06-08 21:16 | PD.SAPROG ---
Progress Note - SubAcute SUBJECTIVE Fever:: none GI:: none Shortness of Breath:: none GI:: no complaints Pain:: none OBJECTIVE Most recent vital signs: Last Vital Signs Temp 97.6 F 06/08/23 18:00 Pulse 88 06/08/23 20:38 Resp 20 06/08/23 18:00 BP 107/67 06/08/23 20:38 Pulse Ox 97 06/08/23 18:00 O2 Del Method Mechanical Ventilation 06/08/23 05:01 FiO2 29 06/08/23 11:33 Neurological:: awake Speech:: nods head and appropriate (Sometimes) Answers questions:: sometimes Respiratory:: lungs clear Cardiovascular: RRR Abdomen: soft and nontender Decubitus:: none Tracheostomy:: to ventilator Feeding per:: G tube Complaints:: none ASSESSMENT & PLAN Assessment: Patient with cognitive function delay, ventilator dependent. No distress. Stable condition. Diagnosis and treatment reviewed. Pt does not tolerate weaning from Ventilator. Plan: Current treatment continued
[2023-06-09] VITALS (12 sets, daily range): BP systolic 85–100; BP diastolic 60–75; PULSE 71–98; RESP 20–26; TEMP 36.3–36.4; O2SAT 97–100
[2023-06-09] MEDS: IPRATROPIUM/ALBUTEROL 3 ML AMPUL.NEB INH ×4 (00:10→18:20)
[2023-06-09] MEDS: LEVOTHYROXINE 50 MCG TABLET GT (05:18)
[2023-06-09] MEDS: LACTULOSE 10 GM/15 ML SOLUTION GT ×3 (05:18→21:18)
[2023-06-09] MEDS: BUMETANIDE 2 MG TABLET GT ×2 (08:34→20:49)
[2023-06-09] MEDS: acetaZOLAMIDE 250 MG TABLET GT ×2 (08:34→20:48)
[2023-06-09] MEDS: FAMOTIDINE 20 MG TABLET GT (08:35)
[2023-06-09] MEDS: FERROUS SULFATE 220 MG/5 ML ELIXIR 330 MG GT (08:36)
[2023-06-09] MEDS: levETIRAcetam 750 MG TABLET GT ×2 (08:36→20:50)
[2023-06-09] MEDS: POTASSIUM CHLORIDE 20 MEQ TAB.ER.PRT GT ×2 (08:36→20:51)
[2023-06-09] MEDS: MULTIVITAMIN 1 TAB TABLET GT (08:36)
[2023-06-09] MEDS: VALPROIC ACID 250 MG/5 ML 1000 MG GT (08:37)
--- NOTE | 2023-06-09 13:21 | CHAP ---
During my visit I Prayed and talk with patient.
--- NOTE | 2023-06-09 16:20 | PC.SS ---
[facility] came for dental x-rays, tech unable to get x-rays. SSD will call to reschedule for 2nd attempt.
[2023-06-09] MEDS: ACETAMINOPHEN 325 MG TABLET 650 MG GT (20:50)
[2023-06-10] VITALS (11 sets, daily range): BP systolic 102–114; BP diastolic 67–75; PULSE 71–87; RESP 20–23; TEMP 36.2–36.4; O2SAT 96–100
[2023-06-10] MEDS: IPRATROPIUM/ALBUTEROL 3 ML AMPUL.NEB INH ×4 (00:55→18:20)
[2023-06-10] MEDS: LACTULOSE 10 GM/15 ML SOLUTION GT ×4 (05:32→21:45)
[2023-06-10] MEDS: LEVOTHYROXINE 50 MCG TABLET GT (05:33)
[2023-06-10] MEDS: acetaZOLAMIDE 250 MG TABLET GT ×2 (08:14→20:19)
[2023-06-10] MEDS: BUMETANIDE 2 MG TABLET GT ×2 (08:14→20:19)
[2023-06-10] MEDS: CARVEDILOL 3.125 MG TABLET GT (08:14)
[2023-06-10] MEDS: FERROUS SULFATE 220 MG/5 ML ELIXIR 330 MG GT (08:15)
[2023-06-10] MEDS: FAMOTIDINE 20 MG TABLET GT (08:15)
[2023-06-10] MEDS: levETIRAcetam 750 MG TABLET GT ×2 (08:16→20:21)
[2023-06-10] MEDS: POTASSIUM CHLORIDE 20 MEQ TAB.ER.PRT GT ×2 (08:16→20:20)
[2023-06-10] MEDS: MULTIVITAMIN 1 TAB TABLET GT (08:16)
[2023-06-10] MEDS: VALPROIC ACID 250 MG/5 ML 1000 MG GT (08:20)
[2023-06-11] VITALS (11 sets, daily range): BP systolic 90–115; BP diastolic 62–76; PULSE 71–87; RESP 20–21; TEMP 36–36.4; O2SAT 96–100
[2023-06-11] MEDS: IPRATROPIUM/ALBUTEROL 3 ML AMPUL.NEB INH ×4 (00:50→18:40)
[2023-06-11] MEDS: LACTULOSE 10 GM/15 ML SOLUTION GT ×3 (05:13→21:23)
[2023-06-11] MEDS: LEVOTHYROXINE 50 MCG TABLET GT (05:14)
[2023-06-11] MEDS: VALPROIC ACID 250 MG/5 ML 1000 MG GT (08:58)
[2023-06-11] MEDS: acetaZOLAMIDE 250 MG TABLET GT ×2 (08:58→21:22)
[2023-06-11] MEDS: BUMETANIDE 2 MG TABLET GT ×2 (08:58→21:22)
[2023-06-11] MEDS: FAMOTIDINE 20 MG TABLET GT (08:59)
[2023-06-11] MEDS: FERROUS SULFATE 220 MG/5 ML ELIXIR 330 MG GT (08:59)
[2023-06-11] MEDS: CARVEDILOL 3.125 MG TABLET GT ×2 (08:59→21:23)
[2023-06-11] MEDS: POTASSIUM CHLORIDE 20 MEQ TAB.ER.PRT GT ×2 (09:00→21:23)
[2023-06-11] MEDS: MULTIVITAMIN 1 TAB TABLET GT (09:00)
[2023-06-11] MEDS: levETIRAcetam 750 MG TABLET GT ×2 (09:00→21:23)
[2023-06-11] MEDS: guaiFENesin Liq 100 MG/5 ML LIQUID 300 MG GT (09:01)
--- NOTE | 2023-06-11 10:45 | PC.SS ---
Room visit: Resident is laying in bed with head of the bed elevated with call light properly placed with no signs of distress. Resident will remain in current care as there are no changes in care or condition. This SSD will continue to make daily contact with resident and offer emotional support.
[2023-06-11] MEDS: LOSARTAN 25 MG TABLET GT (21:23)
[2023-06-11] MEDS: ACETAMINOPHEN 325 MG TABLET 650 MG GT (21:24)
[2023-06-12] VITALS (11 sets, daily range): BP systolic 86–98; BP diastolic 54–64; PULSE 68–90; RESP 20–28; TEMP 36–36.6; O2SAT 95–100
[2023-06-12] MEDS: IPRATROPIUM/ALBUTEROL 3 ML AMPUL.NEB INH ×4 (00:51→18:30)
[2023-06-12] MEDS: LEVOTHYROXINE 50 MCG TABLET GT (05:17)
[2023-06-12] MEDS: LACTULOSE 10 GM/15 ML SOLUTION GT ×3 (05:17→21:22)
[2023-06-12] MEDS: acetaZOLAMIDE 250 MG TABLET GT ×2 (08:33→20:34)
[2023-06-12] MEDS: FAMOTIDINE 20 MG TABLET GT (08:34)
[2023-06-12] MEDS: FERROUS SULFATE 220 MG/5 ML ELIXIR 330 MG GT (08:34)
[2023-06-12] MEDS: levETIRAcetam 750 MG TABLET GT ×2 (08:34→20:35)
[2023-06-12] MEDS: VALPROIC ACID 250 MG/5 ML 1000 MG GT (08:35)
[2023-06-12] MEDS: MULTIVITAMIN 1 TAB TABLET GT (08:35)
[2023-06-12] MEDS: POTASSIUM CHLORIDE 20 MEQ TAB.ER.PRT GT ×2 (08:35→20:35)
[2023-06-12] MEDS: BUMETANIDE 2 MG TABLET GT ×2 (08:39→20:34)
--- NOTE | 2023-06-12 20:49 | PD.SAPROG ---
Progress Note - SubAcute SUBJECTIVE Fever:: none GI:: none Shortness of Breath:: none GI:: no complaints Pain:: none OBJECTIVE Most recent vital signs: Last Vital Signs Temp 97.4 F 06/12/23 17:49 Pulse 82 06/12/23 18:30 Resp 22 H 06/12/23 18:30 BP 94/64 06/12/23 17:49 Pulse Ox 98 06/12/23 18:30 O2 Del Method Mechanical Ventilation 06/12/23 06:00 FiO2 29 06/12/23 18:30 Neurological:: awake Speech:: nods head and appropriate (Sometimes) Answers questions:: sometimes Respiratory:: lungs clear Cardiovascular: RRR Abdomen: soft and nontender Decubitus:: none Tracheostomy:: to ventilator Feeding per:: G tube Complaints:: none ASSESSMENT & PLAN Assessment: Patient with cognitive function delay, ventilator dependent. No distress. Stable condition. Diagnosis and treatment reviewed. Pt does not tolerate weaning from Ventilator. Plan: Current treatment continued
[2023-06-13] VITALS (12 sets, daily range): BP systolic 92–105; BP diastolic 61–69; PULSE 72–88; RESP 20–22; TEMP 36.4–36.8; O2SAT 97–99
[2023-06-13] MEDS: IPRATROPIUM/ALBUTEROL 3 ML AMPUL.NEB INH ×4 (01:02→19:00)
[2023-06-13] MEDS: LACTULOSE 10 GM/15 ML SOLUTION GT ×3 (05:06→21:37)
[2023-06-13] MEDS: LEVOTHYROXINE 50 MCG TABLET GT (05:06)
[2023-06-13] MEDS: acetaZOLAMIDE 250 MG TABLET GT ×2 (09:20→21:35)
[2023-06-13] MEDS: BUMETANIDE 2 MG TABLET GT ×2 (09:20→21:35)
[2023-06-13] MEDS: MULTIVITAMIN 1 TAB TABLET GT (09:21)
[2023-06-13] MEDS: levETIRAcetam 750 MG TABLET GT ×2 (09:21→21:36)
[2023-06-13] MEDS: FERROUS SULFATE 220 MG/5 ML ELIXIR 330 MG GT (09:21)
[2023-06-13] MEDS: FAMOTIDINE 20 MG TABLET GT (09:21)
[2023-06-13] MEDS: POTASSIUM CHLORIDE 20 MEQ TAB.ER.PRT GT ×2 (09:22→21:36)
[2023-06-13] MEDS: VALPROIC ACID 250 MG/5 ML 1000 MG GT (09:23)
[2023-06-14] VITALS (10 sets, daily range): BP systolic 100–117; BP diastolic 64–73; PULSE 73–87; RESP 18–20; TEMP 36.1–36.6; O2SAT 95–99
[2023-06-14] MEDS: IPRATROPIUM/ALBUTEROL 3 ML AMPUL.NEB INH ×4 (02:32→21:10)
[2023-06-14] MEDS: LEVOTHYROXINE 50 MCG TABLET GT (05:41)
[2023-06-14] MEDS: LACTULOSE 10 GM/15 ML SOLUTION GT ×3 (05:41→21:09)
[2023-06-14] MEDS: BUMETANIDE 2 MG TABLET GT ×2 (08:53→20:28)
[2023-06-14] MEDS: acetaZOLAMIDE 250 MG TABLET GT ×2 (08:53→20:27)
[2023-06-14] MEDS: levETIRAcetam 750 MG TABLET GT ×2 (08:54→20:28)
[2023-06-14] MEDS: FAMOTIDINE 20 MG TABLET GT (08:54)
[2023-06-14] MEDS: FERROUS SULFATE 220 MG/5 ML ELIXIR 330 MG GT (08:54)
[2023-06-14] MEDS: VALPROIC ACID 250 MG/5 ML 1000 MG GT (08:55)
[2023-06-14] MEDS: POTASSIUM CHLORIDE 20 MEQ TAB.ER.PRT GT ×2 (08:55→20:28)
[2023-06-14] MEDS: MULTIVITAMIN 1 TAB TABLET GT (08:55)
[2023-06-14] MEDS: CARVEDILOL 3.125 MG TABLET GT (20:28)
[2023-06-15] VITALS (15 sets, daily range): BP systolic 98–107; BP diastolic 66–77; PULSE 72–95; RESP 20–22; TEMP 36.3–36.6; O2SAT 96–99
[2023-06-15] MEDS: LACTULOSE 10 GM/15 ML SOLUTION GT ×3 (05:33→21:38)
[2023-06-15] MEDS: LEVOTHYROXINE 50 MCG TABLET GT (05:33)
[2023-06-15] MEDS: IPRATROPIUM/ALBUTEROL 3 ML AMPUL.NEB INH ×3 (06:55→19:15)
[2023-06-15] MEDS: acetaZOLAMIDE 250 MG TABLET GT ×2 (08:32→21:36)
[2023-06-15] MEDS: BUMETANIDE 2 MG TABLET GT ×2 (08:32→21:37)
[2023-06-15] MEDS: FERROUS SULFATE 220 MG/5 ML ELIXIR 330 MG GT (08:34)
[2023-06-15] MEDS: FAMOTIDINE 20 MG TABLET GT (08:34)
[2023-06-15] MEDS: VALPROIC ACID 250 MG/5 ML 1000 MG GT (08:35)
[2023-06-15] MEDS: MULTIVITAMIN 1 TAB TABLET GT (08:35)
[2023-06-15] MEDS: levETIRAcetam 750 MG TABLET GT ×2 (08:35→21:37)
[2023-06-15] MEDS: POTASSIUM CHLORIDE 20 MEQ TAB.ER.PRT GT ×2 (08:35→21:37)
[2023-06-16] VITALS (11 sets, daily range): BP systolic 94–114; BP diastolic 68–70; PULSE 71–92; RESP 20–24; TEMP 36.1–37; O2SAT 97–99
[2023-06-16] MEDS: IPRATROPIUM/ALBUTEROL 3 ML AMPUL.NEB INH ×4 (02:01→17:50)
[2023-06-16] MEDS: LEVOTHYROXINE 50 MCG TABLET GT (05:36)
[2023-06-16] MEDS: LACTULOSE 10 GM/15 ML SOLUTION GT ×2 (05:36→14:22)
[2023-06-16] MEDS: BUMETANIDE 2 MG TABLET GT ×2 (08:41→21:16)
[2023-06-16] MEDS: acetaZOLAMIDE 250 MG TABLET GT ×2 (08:41→21:16)
[2023-06-16] MEDS: FAMOTIDINE 20 MG TABLET GT (08:42)
[2023-06-16] MEDS: levETIRAcetam 750 MG TABLET GT ×2 (08:42→21:18)
[2023-06-16] MEDS: FERROUS SULFATE 220 MG/5 ML ELIXIR 330 MG GT (08:42)
[2023-06-16] MEDS: MULTIVITAMIN 1 TAB TABLET GT (08:43)
[2023-06-16] MEDS: POTASSIUM CHLORIDE 20 MEQ TAB.ER.PRT GT ×2 (08:43→21:18)
[2023-06-16] MEDS: VALPROIC ACID 250 MG/5 ML 1000 MG GT (08:45)
--- NOTE | 2023-06-16 21:56 | PD.SAPROG ---
Progress Note - SubAcute SUBJECTIVE Fever:: none GI:: none Shortness of Breath:: none GI:: no complaints Pain:: none OBJECTIVE Most recent vital signs: Last Vital Signs Temp 97.0 F 06/16/23 17:36 Pulse 92 06/16/23 21:17 Resp 20 06/16/23 17:36 BP 104/69 06/16/23 21:17 Pulse Ox 97 06/16/23 17:36 O2 Del Method Mechanical Ventilation 06/16/23 06:00 FiO2 29 06/16/23 12:12 Neurological:: awake Speech:: nods head and appropriate (Sometimes) Answers questions:: sometimes Respiratory:: lungs clear Cardiovascular: RRR Abdomen: soft and nontender Decubitus:: none Tracheostomy:: to ventilator Feeding per:: G tube Complaints:: none ASSESSMENT & PLAN Assessment: Patient with cognitive function delay, ventilator dependent. No distress. Stable condition. Diagnosis and treatment reviewed. Pt does not tolerate weaning from Ventilator. Family updated in IDT Plan: Current treatment continued
[2023-06-17] VITALS (11 sets, daily range): BP systolic 92–113; BP diastolic 64–81; PULSE 69–98; RESP 18–21; TEMP 36.1–36.6; O2SAT 97–100
[2023-06-17] MEDS: IPRATROPIUM/ALBUTEROL 3 ML AMPUL.NEB INH ×4 (00:15→20:35)
[2023-06-17] MEDS: LACTULOSE 10 GM/15 ML SOLUTION GT ×3 (05:08→21:16)
[2023-06-17] MEDS: LEVOTHYROXINE 50 MCG TABLET GT (05:09)
[2023-06-17] MEDS: BUMETANIDE 2 MG TABLET GT ×2 (09:18→20:36)
[2023-06-17] MEDS: acetaZOLAMIDE 250 MG TABLET GT ×2 (09:18→20:36)
[2023-06-17] MEDS: FAMOTIDINE 20 MG TABLET GT (09:19)
[2023-06-17] MEDS: FERROUS SULFATE 220 MG/5 ML ELIXIR 330 MG GT (09:19)
[2023-06-17] MEDS: POTASSIUM CHLORIDE 20 MEQ TAB.ER.PRT GT ×2 (09:20→20:38)
[2023-06-17] MEDS: MULTIVITAMIN 1 TAB TABLET GT (09:20)
[2023-06-17] MEDS: levETIRAcetam 750 MG TABLET GT ×2 (09:20→20:37)
[2023-06-17] MEDS: VALPROIC ACID 250 MG/5 ML 1000 MG GT (09:21)
[2023-06-17] MEDS: guaiFENesin Liq 100 MG/5 ML LIQUID 300 MG GT (21:16)
[2023-06-18] VITALS (10 sets, daily range): BP systolic 91–125; BP diastolic 60–74; PULSE 75–99; RESP 20–26; TEMP 36.2–36.5; O2SAT 98–100
[2023-06-18] MEDS: IPRATROPIUM/ALBUTEROL 3 ML AMPUL.NEB INH ×4 (00:52→19:59)
[2023-06-18] MEDS: LACTULOSE 10 GM/15 ML SOLUTION GT ×3 (05:13→22:00)
[2023-06-18] MEDS: LEVOTHYROXINE 50 MCG TABLET GT (05:13)
[2023-06-18] MEDS: acetaZOLAMIDE 250 MG TABLET GT ×2 (08:43→20:12)
[2023-06-18] MEDS: BUMETANIDE 2 MG TABLET GT ×2 (08:43→20:12)
[2023-06-18] MEDS: levETIRAcetam 750 MG TABLET GT ×2 (08:44→20:13)
[2023-06-18] MEDS: FERROUS SULFATE 220 MG/5 ML ELIXIR 330 MG GT (08:44)
[2023-06-18] MEDS: FAMOTIDINE 20 MG TABLET GT (08:44)
[2023-06-18] MEDS: POTASSIUM CHLORIDE 20 MEQ TAB.ER.PRT GT ×2 (08:45→20:13)
[2023-06-18] MEDS: MULTIVITAMIN 1 TAB TABLET GT (08:45)
[2023-06-18] MEDS: VALPROIC ACID 250 MG/5 ML 1000 MG GT (08:46)
--- NOTE | 2023-06-18 12:30 | PC.SS ---
Room visit: Resident is laying in bed with TV on and call light properly placed with no signs of distress. Resident will remain in current care as there are no changes in care or condition. SSD will continue to make daily contact with resident and offer support as needed.
[2023-06-19] VITALS (12 sets, daily range): BP systolic 90–119; BP diastolic 62–71; PULSE 75–128; RESP 20–27; TEMP 36.4–38.9; O2SAT 98–100
[2023-06-19] MEDS: IPRATROPIUM/ALBUTEROL 3 ML AMPUL.NEB INH ×4 (01:58→18:15)
[2023-06-19] MEDS: LACTULOSE 10 GM/15 ML SOLUTION GT ×2 (05:37→13:23)
[2023-06-19] MEDS: LEVOTHYROXINE 50 MCG TABLET GT (05:38)
[2023-06-19] MEDS: guaiFENesin Liq 100 MG/5 ML LIQUID 300 MG GT ×2 (07:38→16:00)
[2023-06-19] MEDS: MULTIVITAMIN 1 TAB TABLET GT (08:36)
[2023-06-19] MEDS: FERROUS SULFATE 220 MG/5 ML ELIXIR 330 MG GT (08:36)
[2023-06-19] MEDS: acetaZOLAMIDE 250 MG TABLET GT ×2 (08:36→20:15)
[2023-06-19] MEDS: BUMETANIDE 2 MG TABLET GT ×2 (08:36→20:16)
[2023-06-19] MEDS: levETIRAcetam 750 MG TABLET GT ×2 (08:36→20:17)
[2023-06-19] MEDS: ACETAMINOPHEN 325 MG TABLET 650 MG GT (08:36)
[2023-06-19] MEDS: CARVEDILOL 3.125 MG TABLET GT (08:36)
[2023-06-19] MEDS: FAMOTIDINE 20 MG TABLET GT (08:36)
[2023-06-19] MEDS: VALPROIC ACID 250 MG/5 ML 1000 MG GT (08:36)
[2023-06-19] MEDS: POTASSIUM CHLORIDE 20 MEQ TAB.ER.PRT GT ×2 (08:36→20:17)
[2023-06-19 09:21] LABS: Collection Type, Urine Catheter; Squamous Epithelial Cell,Urine 0 /hpf (0-5)
[2023-06-19 09:42] LABS: Influenza A Ag Negative; Influenza B Ag Negative
[2023-06-19 09:43] LABS: COVID-19 Antigen (In-House) Negative (Negative)
--- NOTE | 2023-06-19 09:55 | PC.NURSE ---
0730-POTATO GRADER informed this nurse that resident was running a fever of 101.0 F rectally, cooling measures performed. 0830-Temp. was rechecked and resident had a fever of 102.0F rectally, fever protocol performed, tyl. 650mg administered via GTube, continue with cooling measure, pending results from lab.
[2023-06-19 10:06] LABS: Bacteria,Urine Rare; Bilirubin,Urine Negative (Negative); Blood,Urine Negative (Negative); Clarity,Urine Clear (Clear/Hazy); Color,Urine Yellow (Lt Yel-Yel); Glucose, Urine Negative (Negative); Ketones,Urine Negative (Negative); Leukocyte Esterase,Urine Positive (Negative); Nitrite,Urine Negative (Negative); PH,Urine 6.5 (5.0-7.0); Protein,Urine Negative (Neg - Trace); RBC,Urine 2 /hpf (0-3); Specific Gravity,Urine 1.012 (1.001-1.035); Urobilinogen,Urine Negative mg/dL (0.0-1.0); WBC,Urine 12 /hpf (0-5)
[2023-06-19 10:51] LABS: Basophils # (Auto) 0.1 Thou/mm3 (0.0-0.2); Basophils % (Auto) 0 % (0-2.5); Eosinophils # (Auto) 0.1 Thou/mm3 (0.0-0.5); Eosinophils % (Auto) 0 % (0-10); Hematocrit 45.9 % (41.0-53.0); Hemoglobin 13.8 g/dL (13.5-16.0); Immature Granulocytes % (Auto) 1 % (0-0); Immature Granulocytes Auto 0.15 Thou/mm3 (0.00-0.00); Lymphocytes # (Auto) 1.3 Thou/mm3 (1.0-4.8); Lymphocytes % (Auto) 4 % (10-50); Mean Corpuscular HGB Conc 30.1 g/dl (31.0-37.0); Mean Corpuscular Hemoglobin 28.8 pg (25.0-35.0); Mean Corpuscular Volume 96 fL (80-100); Monocytes # (Auto) 1.6 Thou/mm3 (0.0-0.8); Monocytes % (Auto) 5 % (0-12); Neutrophils # (Auto) 26.7 Thou/mm3 (1.8-7.7); Neutrophils % (Auto) 89 % (37-80); Nucleated Red Blood Cell % 0 /100 WBC (0); Platelet Count 193 Thou/mm3 (140-440); White Blood Count 29.9 Thou/mm3 (3.8-10.6)
[2023-06-19 11:07] LABS: Procalcitonin 0.12 ng/ml (0.0-0.49)
--- NOTE | 2023-06-19 11:47 | PC.NURSE ---
made aware of WBC, procalcetonin, and urine analysis results, no order obtain for Rocephin 1gram IV daily x 5 days for elevated WBC, pending cultures, resident in room resting, call light within reach, no s/s of distress noted at this time.
[2023-06-19] MEDS: CEFTRIAXONE 1 GM VIAL.PORT IVP (13:39)
--- NOTE | 2023-06-19 18:29 | PC.NURSE ---
At 0730 vital signs obtained as follow 101.1 Rectally, 128,28,119/70, O2 saturation 98%. Cooling measures applied at this time. RN informed and instructed nurse to recheck in 1 hr. At 0830 f/u temp 102.0 rectally. RN informed Acetaminophen 325 mg X 2 tablets given PRN as ordered, cooling measures continued. Fever protocol initiated. Sputum specimen collected by RT. UA, Influenza A & B and Covid SARS collected by RN. Negative for Influenza A&B and Covid. At 0930 lidar technician here to draw labs for CBC and CMP. Lab results ^ WBC 29.9. At 1000 rectal temp 101.1 continue with cooling measures. At 1100 f/u rectal temp 100.0 IV # 22 guage to left foot x 1 successful attempt. First dose of Rocephin IV administered by RN. No adverse reactions from ABX noticed. Vital signs @, 1200 rectal temp 99.3, 78,20,97/62, 02 saturations 100 %. No s/s of any discomfort. Pt placed on contact precautions.
[2023-06-20] VITALS (12 sets, daily range): BP systolic 93–105; BP diastolic 63–70; PULSE 76–94; RESP 22–26; TEMP 36.1–36.3; O2SAT 97–100
[2023-06-20] MEDS: IPRATROPIUM/ALBUTEROL 3 ML AMPUL.NEB INH ×4 (00:30→20:49)
[2023-06-20] MEDS: LEVOTHYROXINE 50 MCG TABLET GT (05:54)
[2023-06-20] MEDS: acetaZOLAMIDE 250 MG TABLET GT ×2 (08:48→20:14)
[2023-06-20] MEDS: BUMETANIDE 2 MG TABLET GT ×2 (08:48→20:15)
[2023-06-20] MEDS: levETIRAcetam 750 MG TABLET GT ×2 (08:50→20:17)
[2023-06-20] MEDS: FAMOTIDINE 20 MG TABLET GT (08:50)
[2023-06-20] MEDS: FERROUS SULFATE 220 MG/5 ML ELIXIR 330 MG GT (08:50)
[2023-06-20] MEDS: VALPROIC ACID 250 MG/5 ML 1000 MG GT (08:51)
[2023-06-20] MEDS: POTASSIUM CHLORIDE 20 MEQ TAB.ER.PRT GT ×2 (08:51→20:17)
[2023-06-20] MEDS: MULTIVITAMIN 1 TAB TABLET GT (08:51)
[2023-06-20] MEDS: CEFTRIAXONE 1 GM VIAL.PORT IVP (09:00)
--- NOTE | 2023-06-20 10:44 | PC.NURSE ---
Resident continue on Rocephin 1gm IV, first dose pulled from [employer] yesterday and administered, no side effects or adverse reaction noted, resident afebrile, 22G IV to left foot, no infiltration noted, no s/s of infection, resident in room resting, call light within reach, call light within reach.
[2023-06-20] MEDS: LACTULOSE 10 GM/15 ML SOLUTION GT ×2 (13:57→21:30)
--- NOTE | 2023-06-20 22:21 | PD.SAPROG ---
Progress Note - SubAcute SUBJECTIVE Fever:: none GI:: none Shortness of Breath:: none GI:: no complaints Pain:: none OBJECTIVE Most recent vital signs: Last Vital Signs Temp 96.9 F 06/20/23 17:18 Pulse 89 06/20/23 20:15 Resp 22 H 06/20/23 18:55 BP 99/67 06/20/23 20:16 Pulse Ox 99 06/20/23 18:55 O2 Del Method Mechanical Ventilation 06/20/23 06:00 FiO2 30 06/20/23 18:55 Neurological:: awake Speech:: nods head and appropriate (Sometimes) Answers questions:: sometimes Respiratory:: lungs clear Cardiovascular: RRR Abdomen: soft and nontender Decubitus:: none Tracheostomy:: to ventilator Feeding per:: G tube Complaints:: none ASSESSMENT & PLAN Assessment: Patient with cognitive function delay,spiked fever , work up started and empirical Rocephin given. ventilator dependent. No distress. Stable condition. Diagnosis and treatment reviewed. Pt does not tolerate weaning from Ventilator. Family updated in IDT Plan: Current treatment continued
[2023-06-21] VITALS (12 sets, daily range): BP systolic 114–131; BP diastolic 74–85; PULSE 77–102; RESP 20–24; TEMP 36.3–37.2; O2SAT 97–100
[2023-06-21] MEDS: IPRATROPIUM/ALBUTEROL 3 ML AMPUL.NEB INH ×4 (01:05→17:42)
[2023-06-21] MEDS: LACTULOSE 10 GM/15 ML SOLUTION GT ×3 (05:07→21:17)
[2023-06-21] MEDS: LEVOTHYROXINE 50 MCG TABLET GT (05:07)
[2023-06-21] MEDS: CEFTRIAXONE 1 GM VIAL.PORT IVP (09:00)
[2023-06-21] MEDS: BUMETANIDE 2 MG TABLET GT ×2 (09:22→20:30)
[2023-06-21] MEDS: acetaZOLAMIDE 250 MG TABLET GT ×2 (09:23→20:30)
[2023-06-21] MEDS: FAMOTIDINE 20 MG TABLET GT (09:23)
[2023-06-21] MEDS: FERROUS SULFATE 220 MG/5 ML ELIXIR 330 MG GT (09:23)
[2023-06-21] MEDS: CARVEDILOL 3.125 MG TABLET GT ×2 (09:23→20:30)
[2023-06-21] MEDS: MULTIVITAMIN 1 TAB TABLET GT (09:24)
[2023-06-21] MEDS: levETIRAcetam 750 MG TABLET GT ×2 (09:24→20:31)
[2023-06-21] MEDS: POTASSIUM CHLORIDE 20 MEQ TAB.ER.PRT GT ×2 (09:25→20:31)
[2023-06-21] MEDS: VALPROIC ACID 250 MG/5 ML 1000 MG GT (09:25)
[2023-06-21] MEDS: guaiFENesin Liq 100 MG/5 ML LIQUID 300 MG GT (20:31)
[2023-06-21] MEDS: LOSARTAN 25 MG TABLET GT (20:31)
[2023-06-22] VITALS (11 sets, daily range): BP systolic 98–112; BP diastolic 63–72; PULSE 69–88; RESP 19–24; TEMP 36.2–37.2; O2SAT 95–100
[2023-06-22] MEDS: IPRATROPIUM/ALBUTEROL 3 ML AMPUL.NEB INH ×3 (00:15→20:03)
[2023-06-22] MEDS: LEVOTHYROXINE 50 MCG TABLET GT (05:09)
[2023-06-22] MEDS: LACTULOSE 10 GM/15 ML SOLUTION GT ×3 (05:09→21:16)
[2023-06-22] MEDS: CARVEDILOL 3.125 MG TABLET GT (08:48)
[2023-06-22] MEDS: acetaZOLAMIDE 250 MG TABLET GT ×2 (08:48→20:47)
[2023-06-22] MEDS: BUMETANIDE 2 MG TABLET GT ×2 (08:48→20:47)
[2023-06-22] MEDS: FAMOTIDINE 20 MG TABLET GT (08:51)
[2023-06-22] MEDS: FERROUS SULFATE 220 MG/5 ML ELIXIR 330 MG GT (08:52)
[2023-06-22] MEDS: MULTIVITAMIN 1 TAB TABLET GT (08:53)
[2023-06-22] MEDS: POTASSIUM CHLORIDE 20 MEQ TAB.ER.PRT GT ×2 (08:53→20:48)
[2023-06-22] MEDS: VALPROIC ACID 250 MG/5 ML 1000 MG GT (08:53)
[2023-06-22] MEDS: levETIRAcetam 750 MG TABLET GT ×2 (08:53→20:48)
--- NOTE | 2023-06-22 14:32 | CHAP ---
10:30 AM Visited by spiritual care volunteer Provided prayer for Patient
--- NOTE | 2023-06-22 16:49 | PC.NURSE ---
resident remains on antibiotic IV therapy, for increased WBC's. Awaiting for cultures of sputum and urine. Resident tolerating IV antibiotics well no S/E noted so far. Will continue to monitor.
[2023-06-22] MEDS: ACETAMINOPHEN 325 MG TABLET 650 MG GT (17:19)
--- NOTE | 2023-06-22 17:46 | PC.NURSE ---
1700- Resident noted with rectal temp of 99.0, cooling measures initiated. Tylenol 650 mg given for facial grimacing. V/S 103/69, 88,22. Resident continues on antibiotic Rocephin for elevated WBC's with no adverse reactions noted. Resting comfortably with eyes open. No s/s of distress noted, will continue to monitor.
[2023-06-23] VITALS (13 sets, daily range): BP systolic 100–123; BP diastolic 63–78; PULSE 61–89; RESP 20–24; TEMP 36.5–36.6; O2SAT 96–100
[2023-06-23] MEDS: IPRATROPIUM/ALBUTEROL 3 ML AMPUL.NEB INH ×4 (01:23→19:40)
[2023-06-23] MEDS: LACTULOSE 10 GM/15 ML SOLUTION GT ×2 (05:33→22:21)
[2023-06-23] MEDS: acetaZOLAMIDE 250 MG TABLET GT ×2 (08:34→20:47)
[2023-06-23] MEDS: BUMETANIDE 2 MG TABLET GT ×2 (08:34→20:47)
[2023-06-23] MEDS: CARVEDILOL 3.125 MG TABLET GT (08:35)
[2023-06-23] MEDS: FAMOTIDINE 20 MG TABLET GT (08:35)
[2023-06-23] MEDS: FERROUS SULFATE 220 MG/5 ML ELIXIR 330 MG GT (08:35)
[2023-06-23] MEDS: levETIRAcetam 750 MG TABLET GT ×2 (08:36→20:48)
[2023-06-23] MEDS: VALPROIC ACID 250 MG/5 ML 1000 MG GT (08:37)
[2023-06-23] MEDS: POTASSIUM CHLORIDE 20 MEQ TAB.ER.PRT GT ×2 (08:37→20:49)
[2023-06-23] MEDS: MULTIVITAMIN 1 TAB TABLET GT (08:37)
[2023-06-23] MEDS: CEFTRIAXONE 1 GM VIAL.PORT IVP (08:57)
[2023-06-23 12:19] LABS: Basophils % (Auto) 0 % (0-2.5); Eosinophils # (Auto) 0.4 Thou/mm3 (0.0-0.5); Eosinophils % (Auto) 3 % (0-10); Hematocrit 41.1 % (41.0-53.0); Hemoglobin 12.7 g/dL (13.5-16.0); Immature Granulocytes % (Auto) 0 % (0-0); Immature Granulocytes Auto 0.04 Thou/mm3 (0.00-0.00); Lymphocytes # (Auto) 3.1 Thou/mm3 (1.0-4.8); Lymphocytes % (Auto) 24 % (10-50); Mean Corpuscular HGB Conc 30.9 g/dl (31.0-37.0); Mean Corpuscular Hemoglobin 28.7 pg (25.0-35.0); Mean Corpuscular Volume 93 fL (80-100); Monocytes # (Auto) 1.1 Thou/mm3 (0.0-0.8); Monocytes % (Auto) 9 % (0-12); Neutrophils # (Auto) 8.2 Thou/mm3 (1.8-7.7); Neutrophils % (Auto) 64 % (37-80); Nucleated Red Blood Cell % 0 /100 WBC (0); Platelet Count 218 Thou/mm3 (140-440); RDW Standard Deviation 45.1 fL (35.1-43.9); Red Blood Count 4.42 Miln/mm3 (4.50-5.90); White Blood Count 12.8 Thou/mm3 (3.8-10.6)
[2023-06-24] VITALS (11 sets, daily range): BP systolic 101–111; BP diastolic 16–74; PULSE 84–104; RESP 20–25; TEMP 36.2–36.4; O2SAT 96–100
[2023-06-24] MEDS: IPRATROPIUM/ALBUTEROL 3 ML AMPUL.NEB INH ×4 (00:06→19:45)
[2023-06-24] MEDS: LEVOTHYROXINE 50 MCG TABLET GT (05:21)
[2023-06-24] MEDS: LACTULOSE 10 GM/15 ML SOLUTION GT ×3 (05:22→21:30)
[2023-06-24] MEDS: acetaZOLAMIDE 250 MG TABLET GT ×2 (08:29→20:20)
[2023-06-24] MEDS: CARVEDILOL 3.125 MG TABLET GT ×2 (08:29→20:21)
[2023-06-24] MEDS: BUMETANIDE 2 MG TABLET GT ×2 (08:29→20:20)
[2023-06-24] MEDS: FAMOTIDINE 20 MG TABLET GT (08:30)
[2023-06-24] MEDS: POTASSIUM CHLORIDE 20 MEQ TAB.ER.PRT GT ×2 (08:30→20:21)
[2023-06-24] MEDS: levETIRAcetam 750 MG TABLET GT ×2 (08:30→20:21)
[2023-06-24] MEDS: MULTIVITAMIN 1 TAB TABLET GT (08:31)
[2023-06-24] MEDS: FERROUS SULFATE 220 MG/5 ML ELIXIR 330 MG GT (08:31)
[2023-06-24] MEDS: VALPROIC ACID 250 MG/5 ML 1000 MG GT (08:37)
[2023-06-24] MEDS: CEFTRIAXONE 1 GM VIAL.PORT IVP (09:48)
--- NOTE | 2023-06-24 12:05 | PC.SS ---
Resident received unannounced visitor from [facility] ([facility]) Ayde Garvin/Resource Developer SALTY. She looked around facility to ensure quality care was being provided and all services were being met by facility. She spoke with Engineering department to get last fire test and sprinkler check date. She was provided with date, she asked for a tour of the kitchen, training manager did not answer call for tour. Ayde was ok with no tour as of today. Ayde stated she would do two unannounced visits per year.
--- NOTE | 2023-06-24 13:19 | PC.NURSE ---
Dr Lackey made aware of resident's latest WBC 12.8.No new orders made. Remains on Rocephin 1 gram iV, no adverse reaction noted. Respiration even and unlabored. No s/s of pain or discomfort.
--- NOTE | 2023-06-24 15:10 | PD.SAPROG ---
Progress Note - SubAcute DIAGNOSIS (1) Chronic respiratory failure with hypoxia: Status: Chronic (2) Dependent on ventilator: Status: Chronic (3) Congestive cardiac failure: Status: Chronic (4) Epilepsy, unspecified, intractable, without status epilepticus: Status: Chronic (5) Anemia: Status: Chronic (6) Hypothyroidism, unspecified: Status: Chronic (7) Developmental disorder of scholastic skills, unspecified: Status: Chronic (8) Age-related osteoporosis without current pathological fracture: Status: Chronic (9) Gastrostomy status: Status: Chronic (10) Tracheostomy status: Status: Chronic SUBJECTIVE Fever:: none GI:: none Shortness of Breath:: none GI:: no complaints Pain:: none OBJECTIVE Most recent vital signs: Last Vital Signs Temp 97.1 F 06/28/23 05:49 Pulse 97 06/28/23 08:30 Resp 26 H 06/28/23 05:49 BP 133/86 H 06/28/23 08:30 Pulse Ox 99 06/28/23 00:43 O2 Del Method Mechanical Ventilation 06/27/23 06:00 FiO2 28 06/28/23 00:43 Neurological:: awake Speech:: nods head and appropriate (Sometimes) Answers questions:: sometimes Respiratory:: lungs clear Cardiovascular: RRR Abdomen: soft and nontender Decubitus:: none Tracheostomy:: to ventilator Feeding per:: G tube Complaints:: none ASSESSMENT & PLAN Assessment: Patient with cognitive function sara. ventilator dependent. No distress. Stable condition. Diagnosis and treatment reviewed. Pt does not tolerate weaning from Ventilator. Family updated in IDT Plan: Current treatment continued
[2023-06-25] VITALS (10 sets, daily range): BP systolic 96–112; BP diastolic 63–74; PULSE 60–103; RESP 20–25; TEMP 36.3–36.6; O2SAT 92–100
[2023-06-25] MEDS: IPRATROPIUM/ALBUTEROL 3 ML AMPUL.NEB INH ×4 (02:10→19:50)
[2023-06-25] MEDS: LACTULOSE 10 GM/15 ML SOLUTION GT ×3 (05:30→21:06)
[2023-06-25] MEDS: LEVOTHYROXINE 50 MCG TABLET GT (05:30)
[2023-06-25] MEDS: acetaZOLAMIDE 250 MG TABLET GT ×2 (08:33→20:19)
[2023-06-25] MEDS: FAMOTIDINE 20 MG TABLET GT (08:34)
[2023-06-25] MEDS: FERROUS SULFATE 220 MG/5 ML ELIXIR 330 MG GT (08:34)
[2023-06-25] MEDS: BUMETANIDE 2 MG TABLET GT ×2 (08:34→20:20)
[2023-06-25] MEDS: CARVEDILOL 3.125 MG TABLET GT (08:34)
[2023-06-25] MEDS: MULTIVITAMIN 1 TAB TABLET GT (08:35)
[2023-06-25] MEDS: levETIRAcetam 750 MG TABLET GT ×2 (08:35→20:20)
[2023-06-25] MEDS: POTASSIUM CHLORIDE 20 MEQ TAB.ER.PRT GT ×2 (08:35→20:20)
[2023-06-25] MEDS: VALPROIC ACID 250 MG/5 ML 1000 MG GT (08:36)
[2023-06-25] MEDS: CEFTRIAXONE 1 GM VIAL.PORT IVP (08:40)
--- NOTE | 2023-06-25 14:45 | PC.SS ---
Room visit: Resident is laying in bed with head of the bed elevated with call light properly placed. Resident has no changes in care or condition he will remain in current care and will have all needs met for subacute care. This SSD will make daily contact with resident and will monitor for any changes in care or condition.
[2023-06-26] VITALS (12 sets, daily range): BP systolic 100–126; BP diastolic 62–74; PULSE 68–117; RESP 20–40; TEMP 35.9–36.6; O2SAT 91–100
[2023-06-26] MEDS: IPRATROPIUM/ALBUTEROL 3 ML AMPUL.NEB INH ×3 (00:45→19:35)
[2023-06-26] MEDS: LEVOTHYROXINE 50 MCG TABLET GT (05:48)
[2023-06-26] MEDS: LACTULOSE 10 GM/15 ML SOLUTION GT ×3 (05:48→21:00)
[2023-06-26] MEDS: FERROUS SULFATE 220 MG/5 ML ELIXIR 330 MG GT (08:54)
[2023-06-26] MEDS: FAMOTIDINE 20 MG TABLET GT (08:54)
[2023-06-26] MEDS: BUMETANIDE 2 MG TABLET GT ×2 (08:54→20:59)
[2023-06-26] MEDS: acetaZOLAMIDE 250 MG TABLET GT ×2 (08:54→20:59)
[2023-06-26] MEDS: MULTIVITAMIN 1 TAB TABLET GT (08:55)
[2023-06-26] MEDS: levETIRAcetam 750 MG TABLET GT ×2 (08:55→21:00)
[2023-06-26] MEDS: POTASSIUM CHLORIDE 20 MEQ TAB.ER.PRT GT ×2 (08:55→21:00)
[2023-06-26] MEDS: ACETAMINOPHEN 325 MG TABLET 650 MG GT ×3 (08:56→21:30)
[2023-06-26] MEDS: VALPROIC ACID 250 MG/5 ML 1000 MG GT (08:56)
[2023-06-26] MEDS: guaiFENesin Liq 100 MG/5 ML LIQUID 300 MG GT ×2 (09:52→16:13)
[2023-06-26] MEDS: CARVEDILOL 3.125 MG TABLET GT (21:00)
[2023-06-27] VITALS (11 sets, daily range): BP systolic 100–111; BP diastolic 55–74; PULSE 82–97; RESP 20–24; TEMP 35.9–36.4; O2SAT 94–98
[2023-06-27] MEDS: IPRATROPIUM/ALBUTEROL 3 ML AMPUL.NEB INH ×4 (01:00→18:30)
[2023-06-27] MEDS: LEVOTHYROXINE 50 MCG TABLET GT (05:05)
[2023-06-27] MEDS: LACTULOSE 10 GM/15 ML SOLUTION GT ×2 (05:05→21:29)
[2023-06-27] MEDS: BUMETANIDE 2 MG TABLET GT ×2 (08:46→21:30)
[2023-06-27] MEDS: acetaZOLAMIDE 250 MG TABLET GT ×2 (08:46→21:30)
[2023-06-27] MEDS: FAMOTIDINE 20 MG TABLET GT (08:47)
[2023-06-27] MEDS: FERROUS SULFATE 220 MG/5 ML ELIXIR 330 MG GT (08:47)
[2023-06-27] MEDS: VALPROIC ACID 250 MG/5 ML 1000 MG GT (08:48)
[2023-06-27] MEDS: MULTIVITAMIN 1 TAB TABLET GT (08:48)
[2023-06-27] MEDS: POTASSIUM CHLORIDE 20 MEQ TAB.ER.PRT GT ×2 (08:48→21:31)
[2023-06-27] MEDS: levETIRAcetam 750 MG TABLET GT ×2 (08:48→21:30)
[2023-06-27] MEDS: CARVEDILOL 3.125 MG TABLET GT (21:30)
[2023-06-27] MEDS: LOSARTAN 25 MG TABLET GT (21:30)
[2023-06-28] VITALS (10 sets, daily range): BP systolic 111–137; BP diastolic 69–86; PULSE 81–97; RESP 20–32; TEMP 36.2–36.5; O2SAT 96–99
[2023-06-28] MEDS: IPRATROPIUM/ALBUTEROL 3 ML AMPUL.NEB INH ×4 (00:43→19:10)
[2023-06-28] MEDS: LEVOTHYROXINE 50 MCG TABLET GT (05:17)
[2023-06-28] MEDS: LACTULOSE 10 GM/15 ML SOLUTION GT ×3 (05:17→21:34)
[2023-06-28] MEDS: acetaZOLAMIDE 250 MG TABLET GT ×2 (08:29→20:23)
[2023-06-28] MEDS: BUMETANIDE 2 MG TABLET GT ×2 (08:29→20:23)
[2023-06-28] MEDS: FAMOTIDINE 20 MG TABLET GT (08:30)
[2023-06-28] MEDS: levETIRAcetam 750 MG TABLET GT ×2 (08:30→20:24)
[2023-06-28] MEDS: CARVEDILOL 3.125 MG TABLET GT ×2 (08:30→20:23)
[2023-06-28] MEDS: MULTIVITAMIN 1 TAB TABLET GT (08:30)
[2023-06-28] MEDS: FERROUS SULFATE 220 MG/5 ML ELIXIR 330 MG GT (08:30)
[2023-06-28] MEDS: POTASSIUM CHLORIDE 20 MEQ TAB.ER.PRT GT ×2 (08:31→20:24)
[2023-06-28] MEDS: VALPROIC ACID 250 MG/5 ML 1000 MG GT (08:31)
[2023-06-29] VITALS (12 sets, daily range): BP systolic 92–122; BP diastolic 63–88; PULSE 74–92; RESP 20–30; TEMP 36.1–36.5; O2SAT 97–100
[2023-06-29] MEDS: IPRATROPIUM/ALBUTEROL 3 ML AMPUL.NEB INH ×4 (01:55→18:38)
[2023-06-29] MEDS: LEVOTHYROXINE 50 MCG TABLET GT (05:36)
[2023-06-29] MEDS: LACTULOSE 10 GM/15 ML SOLUTION GT ×3 (05:36→21:27)
[2023-06-29 08:05] LABS: Basophils % (Auto) 0 % (0-2.5); Eosinophils # (Auto) 0.1 Thou/mm3 (0.0-0.5); Eosinophils % (Auto) 1 % (0-10); Hematocrit 40.8 % (41.0-53.0); Hemoglobin 12.8 g/dL (13.5-16.0); Immature Granulocytes % (Auto) 1 % (0-0); Immature Granulocytes Auto 0.08 Thou/mm3 (0.00-0.00); Lymphocytes # (Auto) 2.8 Thou/mm3 (1.0-4.8); Lymphocytes % (Auto) 20 % (10-50); Mean Corpuscular HGB Conc 31.4 g/dl (31.0-37.0); Mean Corpuscular Volume 93 fL (80-100); Monocytes # (Auto) 1.4 Thou/mm3 (0.0-0.8); Monocytes % (Auto) 10 % (0-12); Neutrophils # (Auto) 9.4 Thou/mm3 (1.8-7.7); Neutrophils % (Auto) 68 % (37-80); Nucleated Red Blood Cell % 0 /100 WBC (0); Platelet Count 209 Thou/mm3 (140-440); RDW Standard Deviation 44.8 fL (35.1-43.9); Red Blood Count 4.41 Miln/mm3 (4.50-5.90); White Blood Count 13.9 Thou/mm3 (3.8-10.6)
[2023-06-29 08:27] LABS: Alanine Aminotransferase 26 U/L (10-49); Albumin, Serum 3.9 gm/dL (3.4-4.8); Albumin/Globulin Ratio 1.3 (1.2-2.2); Alkaline Phosphatase 106 U/L (46-116); Anion Gap 6 (7-16); Aspartate Amino Transferase 22 U/L (0-34); BUN/Creatinine Ratio 26 Ratio (12-20); Bilirubin,Total 0.2 mg/dL (0.3-1.2); Blood Urea Nitrogen 26 mg/dL (9-23); Calcium 9.2 mg/dL (8.3-10.6); Calcium (Corrected) 9.3 mg/dL (8.5-10.1); Carbon Dioxide 27.5 mMol/L (20.0-31.0); Chloride 108 mMol/L (98-107); Estimated Creatinine Clearance 80.1 mL/min (>60); Globulin 2.9 gm/dL (2.3-3.5); Glucose 100 mg/dL (74-106); Osmolality,Calculated 285 (275-295); Potassium 3.6 mMol/L (3.4-5.1); Sodium 141 mMol/L (136-145); Total Protein 6.8 gm/dL (5.7-8.2); eGFR > 60 See Note
[2023-06-29] MEDS: acetaZOLAMIDE 250 MG TABLET GT ×2 (09:08→20:39)
[2023-06-29] MEDS: MULTIVITAMIN 1 TAB TABLET GT (09:08)
[2023-06-29] MEDS: BUMETANIDE 2 MG TABLET GT ×2 (09:08→20:40)
[2023-06-29] MEDS: FAMOTIDINE 20 MG TABLET GT (09:09)
[2023-06-29] MEDS: FERROUS SULFATE 220 MG/5 ML ELIXIR 330 MG GT (09:09)
[2023-06-29] MEDS: levETIRAcetam 750 MG TABLET GT ×2 (09:10→20:41)
[2023-06-29] MEDS: POTASSIUM CHLORIDE 20 MEQ TAB.ER.PRT GT ×2 (09:10→20:41)
[2023-06-29] MEDS: VALPROIC ACID 250 MG/5 ML 1000 MG GT (09:11)
--- NOTE | 2023-06-29 13:36 | CHAP ---
10:00 AM Visited by spiritual care volunteer Provided prayer for Patient.
[2023-06-30] VITALS (11 sets, daily range): BP systolic 96–117; BP diastolic 54–78; PULSE 56–97; RESP 20–26; TEMP 36–36.7; O2SAT 95–99
[2023-06-30] MEDS: IPRATROPIUM/ALBUTEROL 3 ML AMPUL.NEB INH ×4 (00:45→18:10)
[2023-06-30] MEDS: LACTULOSE 10 GM/15 ML SOLUTION GT ×3 (05:15→21:16)
[2023-06-30] MEDS: LEVOTHYROXINE 50 MCG TABLET GT (05:15)
[2023-06-30] MEDS: acetaZOLAMIDE 250 MG TABLET GT ×2 (08:40→20:51)
[2023-06-30] MEDS: BUMETANIDE 2 MG TABLET GT ×2 (08:40→21:16)
[2023-06-30] MEDS: FAMOTIDINE 20 MG TABLET GT (08:41)
[2023-06-30] MEDS: FERROUS SULFATE 220 MG/5 ML ELIXIR 330 MG GT (08:41)
[2023-06-30] MEDS: levETIRAcetam 750 MG TABLET GT ×2 (08:42→20:51)
[2023-06-30] MEDS: POTASSIUM CHLORIDE 20 MEQ TAB.ER.PRT GT ×2 (08:42→20:52)
[2023-06-30] MEDS: VALPROIC ACID 250 MG/5 ML 1000 MG GT (08:42)
[2023-06-30] MEDS: MULTIVITAMIN 1 TAB TABLET GT (08:42)
--- NOTE | 2023-06-30 11:25 | PC.NURSE ---
Resident discharged from RNA program due to inability to benefit further from PROM or AAROM 3 x week. Is developmentally disabled and refuses when responsive or unable to complete exercise. Is mechanical ventilator dependent, has history of femoral fracture prior to date of admission. Resident is dependent for all ADL's; will continue to monitor at intervals for any indication of improved function. Prognosis is poor.
--- NOTE | 2023-06-30 13:41 | CHAP ---
10:00 AM Visited by spiritual care volunteer Provided prayer for Patient.
--- NOTE | 2023-06-30 17:57 | PC.NURSE ---
At about 1730 com writer was alerted to resident's room by vent alarming. When com writer entered com writer had disconnected vent tubing as well as detached trach collar. At this time resident had bilateral mittens on. Endband Sizer was able to stabilize trach and hold it in place until assistance arrived. All the while, resident was hitting at com writer and hitting at trach site. RN arrived to help and trach collar was able to be attached again. Endband Sizer attempted to suction resident but secretions are very thick and would not suction. At about 1750 com writer was again alerted to resident's room by vent alarming and resident had again disconnected vent tubing. RN and com writer were able to reconnect tubing and attempted to suction resident again but could not. RT made aware and requested resident to be lavaged to thin out secretions. Resident is resting in bed and is calm at this time.
[2023-06-30] MEDS: CARVEDILOL 3.125 MG TABLET GT (20:51)
[2023-07-01] VITALS (10 sets, daily range): BP systolic 98–119; BP diastolic 68–80; PULSE 78–105; RESP 20–99; TEMP 36.2–36.9; O2SAT 97–100
[2023-07-01] MEDS: LEVOTHYROXINE 50 MCG TABLET GT (06:09)
[2023-07-01 06:37] LABS: Levetiracetam (Keppra)* 35.5 mcg/mL (6.0-46.0)
[2023-07-01] MEDS: IPRATROPIUM/ALBUTEROL 3 ML AMPUL.NEB INH ×4 (07:25→18:10)
[2023-07-01] MEDS: acetaZOLAMIDE 250 MG TABLET GT ×2 (08:46→21:28)
[2023-07-01] MEDS: FAMOTIDINE 20 MG TABLET GT (08:47)
[2023-07-01] MEDS: CARVEDILOL 3.125 MG TABLET GT ×2 (08:47→21:29)
[2023-07-01] MEDS: BUMETANIDE 2 MG TABLET GT ×2 (08:47→21:29)
[2023-07-01] MEDS: levETIRAcetam 750 MG TABLET GT ×2 (08:48→21:29)
[2023-07-01] MEDS: FERROUS SULFATE 220 MG/5 ML ELIXIR 330 MG GT (08:48)
[2023-07-01] MEDS: POTASSIUM CHLORIDE 20 MEQ TAB.ER.PRT GT ×2 (08:49→21:31)
[2023-07-01] MEDS: MULTIVITAMIN 1 TAB TABLET GT (08:49)
[2023-07-01] MEDS: VALPROIC ACID 250 MG/5 ML 1000 MG GT (08:51)
[2023-07-01] MEDS: LACTULOSE 10 GM/15 ML SOLUTION GT ×2 (13:53→21:41)
--- NOTE | 2023-07-01 14:40 | PD.SAPROG ---
Progress Note - SubAcute DIAGNOSIS (1) Chronic respiratory failure with hypoxia: Status: Chronic (2) Dependent on ventilator: Status: Chronic (3) Congestive cardiac failure: Status: Chronic (4) Epilepsy, unspecified, intractable, without status epilepticus: Status: Chronic (5) Anemia: Status: Chronic (6) Hypothyroidism, unspecified: Status: Chronic (7) Developmental disorder of scholastic skills, unspecified: Status: Chronic (8) Age-related osteoporosis without current pathological fracture: Status: Chronic (9) Gastrostomy status: Status: Chronic (10) Tracheostomy status: Status: Chronic SUBJECTIVE Fever:: none GI:: none Shortness of Breath:: none GI:: no complaints Pain:: none OBJECTIVE Most recent vital signs: Last Vital Signs Temp 98.3 F 07/02/23 00:00 Pulse 81 07/02/23 00:10 Resp 24 H 07/02/23 00:10 BP 109/70 07/02/23 00:00 Pulse Ox 97 07/02/23 00:10 O2 Del Method Mechanical Ventilation 07/01/23 06:00 FiO2 30 07/02/23 00:10 Neurological:: awake Speech:: nods head and appropriate (Sometimes) Answers questions:: sometimes Respiratory:: lungs clear Cardiovascular: RRR Abdomen: soft and nontender Decubitus:: none Tracheostomy:: to ventilator Feeding per:: G tube Complaints:: none ASSESSMENT & PLAN Assessment: Patient with cognitive function sara. ventilator dependent. No distress. Stable condition. Diagnosis and treatment reviewed. Pt does not tolerate weaning from Ventilator. Family updated in IDT Plan: Current treatment continued
[2023-07-01] MEDS: LOSARTAN 25 MG TABLET GT (21:30)
[2023-07-02] VITALS (11 sets, daily range): BP systolic 101–116; BP diastolic 66–76; PULSE 74–89; RESP 20–25; TEMP 36.3–36.8; O2SAT 97–100
[2023-07-02] MEDS: IPRATROPIUM/ALBUTEROL 3 ML AMPUL.NEB INH ×4 (00:10→19:20)
[2023-07-02] MEDS: LACTULOSE 10 GM/15 ML SOLUTION GT ×3 (05:28→21:19)
[2023-07-02] MEDS: LEVOTHYROXINE 50 MCG TABLET GT (05:30)
[2023-07-02] MEDS: acetaZOLAMIDE 250 MG TABLET GT ×2 (08:37→20:41)
[2023-07-02] MEDS: BUMETANIDE 2 MG TABLET GT ×2 (08:37→20:41)
[2023-07-02] MEDS: MULTIVITAMIN 1 TAB TABLET GT (08:38)
[2023-07-02] MEDS: FAMOTIDINE 20 MG TABLET GT (08:38)
[2023-07-02] MEDS: levETIRAcetam 750 MG TABLET GT ×2 (08:38→20:42)
[2023-07-02] MEDS: POTASSIUM CHLORIDE 20 MEQ TAB.ER.PRT GT ×2 (08:39→20:42)
[2023-07-02] MEDS: VALPROIC ACID 250 MG/5 ML 1000 MG GT (08:39)
--- NOTE | 2023-07-02 11:05 | CHAP ---
Patent prayed for by the Spiritual Care Volunteer who prayed outside of room for them. (Volunteer was in the hospital from 10:35-11:05)
[2023-07-03] VITALS (13 sets, daily range): BP systolic 94–136; BP diastolic 61–81; PULSE 60–112; RESP 17–23; TEMP 36–36.4; O2SAT 97–100
[2023-07-03] MEDS: IPRATROPIUM/ALBUTEROL 3 ML AMPUL.NEB INH ×3 (00:30→20:15)
[2023-07-03] MEDS: LACTULOSE 10 GM/15 ML SOLUTION GT ×3 (05:16→21:06)
[2023-07-03] MEDS: LEVOTHYROXINE 50 MCG TABLET GT (05:16)
[2023-07-03] MEDS: acetaZOLAMIDE 250 MG TABLET GT ×2 (08:40→20:53)
[2023-07-03] MEDS: BUMETANIDE 2 MG TABLET GT ×2 (08:41→20:53)
[2023-07-03] MEDS: levETIRAcetam 750 MG TABLET GT ×2 (08:42→20:54)
[2023-07-03] MEDS: FAMOTIDINE 20 MG TABLET GT (08:42)
[2023-07-03] MEDS: MULTIVITAMIN 1 TAB TABLET GT (08:44)
[2023-07-03] MEDS: POTASSIUM CHLORIDE 20 MEQ TAB.ER.PRT GT ×2 (08:45→20:54)
[2023-07-03] MEDS: FERROUS SULFATE 220 MG/5 ML ELIXIR 330 MG GT (08:45)
[2023-07-03] MEDS: VALPROIC ACID 250 MG/5 ML 1000 MG GT (08:46)
[2023-07-03] MEDS: CARVEDILOL 3.125 MG TABLET GT (20:53)
[2023-07-03] MEDS: LOSARTAN 25 MG TABLET GT (20:54)
[2023-07-04] VITALS (13 sets, daily range): BP systolic 88–124; BP diastolic 59–78; PULSE 62–96; RESP 2–22; TEMP 36.2–36.4; O2SAT 94–100
[2023-07-04] MEDS: LACTULOSE 10 GM/15 ML SOLUTION GT ×3 (05:17→21:49)
[2023-07-04] MEDS: LEVOTHYROXINE 50 MCG TABLET GT (05:17)
[2023-07-04] MEDS: IPRATROPIUM/ALBUTEROL 3 ML AMPUL.NEB INH ×4 (07:16→18:15)
[2023-07-04] MEDS: acetaZOLAMIDE 250 MG TABLET GT ×2 (08:59→21:46)
[2023-07-04] MEDS: BUMETANIDE 2 MG TABLET GT ×2 (08:59→21:47)
[2023-07-04] MEDS: FAMOTIDINE 20 MG TABLET GT (09:00)
[2023-07-04] MEDS: POTASSIUM CHLORIDE 20 MEQ TAB.ER.PRT GT ×2 (09:01→21:49)
[2023-07-04] MEDS: MULTIVITAMIN 1 TAB TABLET GT (09:01)
[2023-07-04] MEDS: FERROUS SULFATE 220 MG/5 ML ELIXIR 330 MG GT (09:01)
[2023-07-04] MEDS: levETIRAcetam 750 MG TABLET GT ×2 (09:01→21:49)
[2023-07-04] MEDS: VALPROIC ACID 250 MG/5 ML 1000 MG GT (09:02)
[2023-07-04] MEDS: CARVEDILOL 3.125 MG TABLET GT (21:48)
[2023-07-05] VITALS (11 sets, daily range): BP systolic 98–109; BP diastolic 64–76; PULSE 76–92; RESP 20–24; TEMP 36.2–36.6; O2SAT 24–100
[2023-07-05] MEDS: IPRATROPIUM/ALBUTEROL 3 ML AMPUL.NEB INH ×4 (00:10→18:42)
[2023-07-05] MEDS: LACTULOSE 10 GM/15 ML SOLUTION GT ×3 (05:38→21:44)
[2023-07-05] MEDS: LEVOTHYROXINE 50 MCG TABLET GT (05:39)
[2023-07-05] MEDS: acetaZOLAMIDE 250 MG TABLET GT ×2 (08:52→20:49)
[2023-07-05] MEDS: BUMETANIDE 2 MG TABLET GT ×2 (08:53→20:49)
[2023-07-05] MEDS: FERROUS SULFATE 220 MG/5 ML ELIXIR 330 MG GT (08:54)
[2023-07-05] MEDS: FAMOTIDINE 20 MG TABLET GT (08:54)
[2023-07-05] MEDS: levETIRAcetam 750 MG TABLET GT ×2 (08:54→20:50)
[2023-07-05] MEDS: POTASSIUM CHLORIDE 20 MEQ TAB.ER.PRT GT ×2 (08:55→20:51)
[2023-07-05] MEDS: MULTIVITAMIN 1 TAB TABLET GT (08:55)
[2023-07-05] MEDS: VALPROIC ACID 250 MG/5 ML 1000 MG GT (08:55)
--- NOTE | 2023-07-05 11:45 | PD.SAPROG ---
Progress Note - SubAcute DIAGNOSIS (1) Chronic respiratory failure with hypoxia: Status: Chronic (2) Dependent on ventilator: Status: Chronic (3) Congestive cardiac failure: Status: Chronic (4) Epilepsy, unspecified, intractable, without status epilepticus: Status: Chronic (5) Anemia: Status: Chronic (6) Hypothyroidism, unspecified: Status: Chronic (7) Developmental disorder of scholastic skills, unspecified: Status: Chronic (8) Age-related osteoporosis without current pathological fracture: Status: Chronic (9) Gastrostomy status: Status: Chronic (10) Tracheostomy status: Status: Chronic SUBJECTIVE Fever:: none GI:: none Shortness of Breath:: none GI:: no complaints Pain:: none OBJECTIVE Most recent vital signs: Last Vital Signs Temp 97.8 F 07/05/23 06:00 Pulse 82 07/05/23 08:53 Resp 21 H 07/05/23 07:07 BP 98/66 07/05/23 08:53 Pulse Ox 97 07/05/23 07:07 O2 Del Method Mechanical Ventilation 07/03/23 17:39 FiO2 30 07/05/23 10:00 Neurological:: awake Speech:: nods head and appropriate (Sometimes) Answers questions:: sometimes Respiratory:: lungs clear Cardiovascular: RRR Abdomen: soft and nontender Decubitus:: none Tracheostomy:: to ventilator Feeding per:: G tube Complaints:: none ASSESSMENT & PLAN Assessment: Patient with cognitive function sara. ventilator dependent. No distress. Stable condition. Diagnosis and treatment reviewed. Pt does not tolerate weaning from Ventilator. Family updated in IDT Plan: Current treatment continued
[2023-07-06] VITALS (12 sets, daily range): BP systolic 91–111; BP diastolic 52–73; PULSE 62–97; RESP 20–24; TEMP 36.1–36.3; O2SAT 97–100
[2023-07-06] MEDS: IPRATROPIUM/ALBUTEROL 3 ML AMPUL.NEB INH ×4 (01:42→19:13)
[2023-07-06] MEDS: LACTULOSE 10 GM/15 ML SOLUTION GT ×3 (05:24→21:01)
[2023-07-06] MEDS: LEVOTHYROXINE 50 MCG TABLET GT (05:24)
[2023-07-06] MEDS: acetaZOLAMIDE 250 MG TABLET GT ×2 (09:43→20:46)
[2023-07-06] MEDS: BUMETANIDE 2 MG TABLET GT ×2 (09:43→20:46)
[2023-07-06] MEDS: FAMOTIDINE 20 MG TABLET GT (09:45)
[2023-07-06] MEDS: levETIRAcetam 750 MG TABLET GT ×2 (09:47→20:47)
[2023-07-06] MEDS: FERROUS SULFATE 220 MG/5 ML ELIXIR 330 MG GT (09:47)
[2023-07-06] MEDS: MULTIVITAMIN 1 TAB TABLET GT (09:47)
[2023-07-06] MEDS: POTASSIUM CHLORIDE 20 MEQ TAB.ER.PRT GT ×2 (09:48→20:47)
[2023-07-06] MEDS: VALPROIC ACID 250 MG/5 ML 1000 MG GT (09:49)
[2023-07-06] MEDS: CARVEDILOL 3.125 MG TABLET GT (20:47)
[2023-07-07] VITALS (10 sets, daily range): BP systolic 106–113; BP diastolic 70–76; PULSE 82–105; RESP 20–22; TEMP 36.3–36.5; O2SAT 97–100
[2023-07-07] MEDS: IPRATROPIUM/ALBUTEROL 3 ML AMPUL.NEB INH ×4 (00:35→18:43)
[2023-07-07] MEDS: LACTULOSE 10 GM/15 ML SOLUTION GT ×3 (05:28→21:01)
[2023-07-07] MEDS: LEVOTHYROXINE 50 MCG TABLET GT (05:28)
[2023-07-07] MEDS: acetaZOLAMIDE 250 MG TABLET GT ×2 (09:28→21:01)
[2023-07-07] MEDS: BUMETANIDE 2 MG TABLET GT ×2 (09:29→21:02)
[2023-07-07] MEDS: CARVEDILOL 3.125 MG TABLET GT (09:29)
[2023-07-07] MEDS: FAMOTIDINE 20 MG TABLET GT (09:30)
[2023-07-07] MEDS: FERROUS SULFATE 220 MG/5 ML ELIXIR 330 MG GT (09:31)
[2023-07-07] MEDS: levETIRAcetam 750 MG TABLET GT ×2 (09:31→21:02)
[2023-07-07] MEDS: MULTIVITAMIN 1 TAB TABLET GT (09:31)
[2023-07-07] MEDS: POTASSIUM CHLORIDE 20 MEQ TAB.ER.PRT GT ×2 (09:32→21:03)
[2023-07-07] MEDS: VALPROIC ACID 250 MG/5 ML 1000 MG GT (09:33)
--- NOTE | 2023-07-07 10:50 | CHAP ---
Patient was visited by a Spiritual Care Volunteer on 07/06/2023 between 0930 and [id number] and received comfort and/or prayer.
--- NOTE | 2023-07-07 13:26 | CHAP ---
10:00 AM Visited by spiritual care volunteer Provided prayer for Patient.
[2023-07-08] VITALS (11 sets, daily range): BP systolic 92–127; BP diastolic 65–78; PULSE 70–94; RESP 20–23; TEMP 36.1–36.3; O2SAT 96–100
[2023-07-08] MEDS: IPRATROPIUM/ALBUTEROL 3 ML AMPUL.NEB INH ×4 (00:31→19:30)
[2023-07-08] MEDS: LEVOTHYROXINE 50 MCG TABLET GT (05:49)
[2023-07-08] MEDS: LACTULOSE 10 GM/15 ML SOLUTION GT ×3 (05:49→22:05)
[2023-07-08] MEDS: BUMETANIDE 2 MG TABLET GT ×2 (08:24→20:27)
[2023-07-08] MEDS: acetaZOLAMIDE 250 MG TABLET GT ×2 (08:24→20:27)
[2023-07-08] MEDS: POTASSIUM CHLORIDE 20 MEQ TAB.ER.PRT GT ×2 (08:25→20:28)
[2023-07-08] MEDS: FERROUS SULFATE 220 MG/5 ML ELIXIR 330 MG GT (08:25)
[2023-07-08] MEDS: levETIRAcetam 750 MG TABLET GT ×2 (08:25→20:28)
[2023-07-08] MEDS: FAMOTIDINE 20 MG TABLET GT (08:25)
[2023-07-08] MEDS: VALPROIC ACID 250 MG/5 ML 1000 MG GT (08:25)
[2023-07-08] MEDS: MULTIVITAMIN 1 TAB TABLET GT (08:25)
[2023-07-08] MEDS: CARVEDILOL 3.125 MG TABLET GT (20:27)
[2023-07-09] VITALS (10 sets, daily range): BP systolic 96–109; BP diastolic 58–74; PULSE 60–91; RESP 20–23; TEMP 36.2–36.3; O2SAT 96–99
[2023-07-09] MEDS: LACTULOSE 10 GM/15 ML SOLUTION GT ×3 (05:19→21:13)
[2023-07-09] MEDS: LEVOTHYROXINE 50 MCG TABLET GT (05:20)
[2023-07-09] MEDS: IPRATROPIUM/ALBUTEROL 3 ML AMPUL.NEB INH ×4 (07:35→19:00)
[2023-07-09] MEDS: FAMOTIDINE 20 MG TABLET GT (08:44)
[2023-07-09] MEDS: acetaZOLAMIDE 250 MG TABLET GT ×2 (08:44→20:23)
[2023-07-09] MEDS: BUMETANIDE 2 MG TABLET GT ×2 (08:44→20:24)
[2023-07-09] MEDS: levETIRAcetam 750 MG TABLET GT ×2 (08:45→20:24)
[2023-07-09] MEDS: POTASSIUM CHLORIDE 20 MEQ TAB.ER.PRT GT ×2 (08:45→20:29)
[2023-07-09] MEDS: VALPROIC ACID 250 MG/5 ML 1000 MG GT (08:45)
[2023-07-09] MEDS: MULTIVITAMIN 1 TAB TABLET GT (08:45)
[2023-07-09] MEDS: FERROUS SULFATE 220 MG/5 ML ELIXIR 330 MG GT (08:45)
--- NOTE | 2023-07-09 09:40 | CHAP ---
Patient was sleeping. Prayed a silent prayer by door.
--- NOTE | 2023-07-09 11:00 | CHAP ---
Patient was visited by the Spiritual Care Volunteer who prayed for them. (Volunteer was in the hospital from 09:15-11:00)
--- NOTE | 2023-07-09 14:05 | PD.SAPROG ---
Progress Note - SubAcute DIAGNOSIS (1) Chronic respiratory failure with hypoxia: Status: Chronic (2) Dependent on ventilator: Status: Chronic (3) Congestive cardiac failure: Status: Chronic (4) Epilepsy, unspecified, intractable, without status epilepticus: Status: Chronic (5) Anemia: Status: Chronic (6) Hypothyroidism, unspecified: Status: Chronic (7) Developmental disorder of scholastic skills, unspecified: Status: Chronic (8) Age-related osteoporosis without current pathological fracture: Status: Chronic (9) Gastrostomy status: Status: Chronic (10) Tracheostomy status: Status: Chronic SUBJECTIVE Fever:: none GI:: none Shortness of Breath:: none GI:: no complaints Pain:: none OBJECTIVE Most recent vital signs: Last Vital Signs Temp 97.2 F 07/13/23 06:00 Pulse 94 07/13/23 06:00 Resp 19 07/13/23 06:00 BP 117/71 07/13/23 06:00 Pulse Ox 97 07/13/23 06:00 O2 Del Method Mechanical Ventilation 07/13/23 06:00 FiO2 30 07/13/23 06:00 Neurological:: awake Speech:: nods head and appropriate (Sometimes) Answers questions:: sometimes Respiratory:: lungs clear Cardiovascular: RRR Abdomen: soft and nontender Decubitus:: none Tracheostomy:: to ventilator Feeding per:: G tube Complaints:: none ASSESSMENT & PLAN Assessment: Patient with cognitive function sara. ventilator dependent. No distress. Stable condition. Diagnosis and treatment reviewed. Pt does not tolerate weaning from Ventilator. Family updated in IDT Plan: Current treatment continued
--- NOTE | 2023-07-09 14:54 | PC.SS ---
Room Visit: Resident remains on ventilator with GT in place for medication and nutrition. Resident is laying in bed with head of the bed elevated with call light properly placed. Resident is well groomed, showing no changes in mood or behavior. Resident will remain in current care as he is total care unable to makes needs known. Resident will remain in current care and will have all needs met for subacute care.
[2023-07-10] VITALS (12 sets, daily range): BP systolic 96–117; BP diastolic 62–76; PULSE 74–98; RESP 20–25; TEMP 36.1–36.5; O2SAT 96–100
[2023-07-10] MEDS: LEVOTHYROXINE 50 MCG TABLET GT (05:46)
[2023-07-10] MEDS: LACTULOSE 10 GM/15 ML SOLUTION GT ×3 (05:46→21:10)
[2023-07-10] MEDS: IPRATROPIUM/ALBUTEROL 3 ML AMPUL.NEB INH ×4 (05:55→19:20)
[2023-07-10] MEDS: acetaZOLAMIDE 250 MG TABLET GT ×2 (08:48→21:10)
[2023-07-10] MEDS: BUMETANIDE 2 MG TABLET GT ×2 (08:49→21:10)
[2023-07-10] MEDS: FAMOTIDINE 20 MG TABLET GT (08:50)
[2023-07-10] MEDS: levETIRAcetam 750 MG TABLET GT ×2 (08:52→21:11)
[2023-07-10] MEDS: FERROUS SULFATE 220 MG/5 ML ELIXIR 330 MG GT (08:52)
[2023-07-10] MEDS: POTASSIUM CHLORIDE 20 MEQ TAB.ER.PRT GT ×2 (08:53→21:11)
[2023-07-10] MEDS: MULTIVITAMIN 1 TAB TABLET GT (08:53)
[2023-07-10] MEDS: VALPROIC ACID 250 MG/5 ML 1000 MG GT (08:54)
[2023-07-10] MEDS: ACETAMINOPHEN 325 MG TABLET 650 MG GT (21:11)
[2023-07-10] MEDS: CARVEDILOL 3.125 MG TABLET GT (21:11)
[2023-07-10] MEDS: guaiFENesin Liq 100 MG/5 ML LIQUID 300 MG GT (21:12)
[2023-07-11] VITALS (12 sets, daily range): BP systolic 95–118; BP diastolic 63–73; PULSE 67–88; RESP 19–22; TEMP 36–36.2; O2SAT 97–100
[2023-07-11] MEDS: IPRATROPIUM/ALBUTEROL 3 ML AMPUL.NEB INH ×4 (00:20→18:00)
[2023-07-11] MEDS: LACTULOSE 10 GM/15 ML SOLUTION GT ×2 (05:03→14:37)
[2023-07-11] MEDS: LEVOTHYROXINE 50 MCG TABLET GT (05:05)
[2023-07-11] MEDS: BUMETANIDE 2 MG TABLET GT ×2 (08:41→20:58)
[2023-07-11] MEDS: acetaZOLAMIDE 250 MG TABLET GT ×2 (08:41→20:58)
[2023-07-11] MEDS: levETIRAcetam 750 MG TABLET GT ×2 (08:42→20:59)
[2023-07-11] MEDS: FAMOTIDINE 20 MG TABLET GT (08:42)
[2023-07-11] MEDS: MULTIVITAMIN 1 TAB TABLET GT (08:43)
[2023-07-11] MEDS: VALPROIC ACID 250 MG/5 ML 1000 MG GT (08:44)
[2023-07-11] MEDS: FERROUS SULFATE 220 MG/5 ML ELIXIR 330 MG GT (08:44)
[2023-07-11] MEDS: POTASSIUM CHLORIDE 20 MEQ TAB.ER.PRT GT ×2 (08:44→21:01)
[2023-07-11] MEDS: CARVEDILOL 3.125 MG TABLET GT (20:59)
[2023-07-11] MEDS: LOSARTAN 25 MG TABLET GT (20:59)
[2023-07-12] VITALS (11 sets, daily range): BP systolic 95–110; BP diastolic 63–76; PULSE 68–93; RESP 20–23; TEMP 36.2–36.4; O2SAT 97–100
[2023-07-12] MEDS: IPRATROPIUM/ALBUTEROL 3 ML AMPUL.NEB INH ×4 (00:30→18:12)
[2023-07-12] MEDS: LEVOTHYROXINE 50 MCG TABLET GT (04:58)
[2023-07-12] MEDS: acetaZOLAMIDE 250 MG TABLET GT ×2 (08:41→21:01)
[2023-07-12] MEDS: BUMETANIDE 2 MG TABLET GT ×2 (08:42→21:01)
[2023-07-12] MEDS: MULTIVITAMIN 1 TAB TABLET GT (08:43)
[2023-07-12] MEDS: FAMOTIDINE 20 MG TABLET GT (08:43)
[2023-07-12] MEDS: levETIRAcetam 750 MG TABLET GT ×2 (08:43→21:03)
[2023-07-12] MEDS: FERROUS SULFATE 220 MG/5 ML ELIXIR 330 MG GT (08:43)
[2023-07-12] MEDS: VALPROIC ACID 250 MG/5 ML 1000 MG GT (08:44)
[2023-07-12] MEDS: POTASSIUM CHLORIDE 20 MEQ TAB.ER.PRT GT ×2 (08:44→21:03)
[2023-07-12] MEDS: LACTULOSE 10 GM/15 ML SOLUTION GT ×2 (14:39→21:01)
[2023-07-13] VITALS (13 sets, daily range): BP systolic 95–117; BP diastolic 62–73; PULSE 78–100; RESP 16–25; TEMP 36.2–36.4; O2SAT 96–100
[2023-07-13] MEDS: IPRATROPIUM/ALBUTEROL 3 ML AMPUL.NEB INH ×4 (00:47→19:28)
[2023-07-13] MEDS: LEVOTHYROXINE 50 MCG TABLET GT (05:45)
[2023-07-13] MEDS: LACTULOSE 10 GM/15 ML SOLUTION GT ×3 (05:45→21:45)
[2023-07-13] MEDS: BUMETANIDE 2 MG TABLET GT ×2 (08:39→20:44)
[2023-07-13] MEDS: acetaZOLAMIDE 250 MG TABLET GT ×2 (08:39→20:43)
[2023-07-13] MEDS: POTASSIUM CHLORIDE 20 MEQ TAB.ER.PRT GT ×2 (08:42→20:46)
[2023-07-13] MEDS: levETIRAcetam 750 MG TABLET GT ×2 (08:42→20:46)
[2023-07-13] MEDS: FAMOTIDINE 20 MG TABLET GT (08:42)
[2023-07-13] MEDS: MULTIVITAMIN 1 TAB TABLET GT (08:43)
[2023-07-13] MEDS: FERROUS SULFATE 220 MG/5 ML ELIXIR 330 MG GT (08:43)
[2023-07-13] MEDS: VALPROIC ACID 250 MG/5 ML 1000 MG GT (08:58)
[2023-07-14] VITALS (12 sets, daily range): BP systolic 98–116; BP diastolic 60–74; PULSE 72–91; RESP 20–21; TEMP 36.4–36.8; O2SAT 95–100
[2023-07-14] MEDS: IPRATROPIUM/ALBUTEROL 3 ML AMPUL.NEB INH ×4 (00:25→17:45)
[2023-07-14] MEDS: LACTULOSE 10 GM/15 ML SOLUTION GT ×3 (05:03→21:34)
[2023-07-14] MEDS: LEVOTHYROXINE 50 MCG TABLET GT (05:04)
[2023-07-14] MEDS: acetaZOLAMIDE 250 MG TABLET GT ×2 (09:11→21:34)
[2023-07-14] MEDS: FAMOTIDINE 20 MG TABLET GT (09:12)
[2023-07-14] MEDS: FERROUS SULFATE 220 MG/5 ML ELIXIR 330 MG GT (09:13)
[2023-07-14] MEDS: VALPROIC ACID 250 MG/5 ML 1000 MG GT (09:14)
[2023-07-14] MEDS: levETIRAcetam 750 MG TABLET GT ×2 (09:14→21:35)
[2023-07-14] MEDS: MULTIVITAMIN 1 TAB TABLET GT (09:14)
[2023-07-14] MEDS: POTASSIUM CHLORIDE 20 MEQ TAB.ER.PRT GT ×2 (09:14→21:35)
[2023-07-14] MEDS: BUMETANIDE 1 MG TABLET GT (21:34)
[2023-07-15] VITALS (14 sets, daily range): BP systolic 99–111; BP diastolic 64–75; PULSE 74–95; RESP 20–26; TEMP 36.3–36.8; O2SAT 95–100
[2023-07-15] MEDS: IPRATROPIUM/ALBUTEROL 3 ML AMPUL.NEB INH ×4 (00:10→19:43)
[2023-07-15] MEDS: LEVOTHYROXINE 50 MCG TABLET GT (05:19)
[2023-07-15] MEDS: LACTULOSE 10 GM/15 ML SOLUTION GT ×3 (05:19→20:56)
[2023-07-15] MEDS: BUMETANIDE 1 MG TABLET GT ×2 (08:50→20:54)
[2023-07-15] MEDS: acetaZOLAMIDE 250 MG TABLET GT ×2 (08:50→20:52)
[2023-07-15] MEDS: levETIRAcetam 750 MG TABLET GT ×2 (08:52→20:51)
[2023-07-15] MEDS: FAMOTIDINE 20 MG TABLET GT (08:52)
[2023-07-15] MEDS: POTASSIUM CHLORIDE 20 MEQ TAB.ER.PRT GT ×2 (08:52→20:50)
[2023-07-15] MEDS: MULTIVITAMIN 1 TAB TABLET GT (08:52)
[2023-07-15] MEDS: FERROUS SULFATE 220 MG/5 ML ELIXIR 330 MG GT (08:52)
[2023-07-15] MEDS: VALPROIC ACID 250 MG/5 ML 1000 MG GT (08:53)
[2023-07-16] VITALS (11 sets, daily range): BP systolic 92–118; BP diastolic 60–69; PULSE 60–95; RESP 16–21; TEMP 36.2–36.7; O2SAT 96–100
[2023-07-16] MEDS: IPRATROPIUM/ALBUTEROL 3 ML AMPUL.NEB INH ×4 (00:54→19:01)
[2023-07-16] MEDS: LEVOTHYROXINE 50 MCG TABLET GT (05:14)
[2023-07-16] MEDS: LACTULOSE 10 GM/15 ML SOLUTION GT ×3 (05:15→23:38)
[2023-07-16] MEDS: acetaZOLAMIDE 250 MG TABLET GT ×2 (09:18→23:35)
[2023-07-16] MEDS: BUMETANIDE 1 MG TABLET GT ×2 (09:18→23:36)
[2023-07-16] MEDS: levETIRAcetam 750 MG TABLET GT ×2 (09:19→23:37)
[2023-07-16] MEDS: FERROUS SULFATE 220 MG/5 ML ELIXIR 330 MG GT (09:19)
[2023-07-16] MEDS: POTASSIUM CHLORIDE 20 MEQ TAB.ER.PRT GT ×2 (09:19→23:37)
[2023-07-16] MEDS: MULTIVITAMIN 1 TAB TABLET GT (09:19)
[2023-07-16] MEDS: CARVEDILOL 3.125 MG TABLET GT (09:19)
[2023-07-16] MEDS: FAMOTIDINE 20 MG TABLET GT (09:19)
[2023-07-16] MEDS: VALPROIC ACID 250 MG/5 ML 1000 MG GT (09:19)
--- NOTE | 2023-07-16 09:43 | CHAP ---
Patient was sleeping. Prayed a quiet prayer by bedside.
--- NOTE | 2023-07-16 12:50 | CHAP ---
Spiritual Care Volunteer prayed for patient. (Volunteer was in the hospital from 09:38-12:50).
--- NOTE | 2023-07-16 15:13 | PC.SS ---
Room visit: Resident is laying in bed with head of the bed elevated, resident is well groomed with call light properly placed with no signs of distress. Resident currently does not have any care or condition, resident will remain in current care. SSD to continue to make daily contact with resident and monitor mood and behavior for any changes.
[2023-07-17] VITALS (11 sets, daily range): BP systolic 90–121; BP diastolic 55–71; PULSE 20–93; RESP 20–22; TEMP 35.9–36.7; O2SAT 96–100
[2023-07-17] MEDS: IPRATROPIUM/ALBUTEROL 3 ML AMPUL.NEB INH ×4 (00:41→19:09)
[2023-07-17] MEDS: LACTULOSE 10 GM/15 ML SOLUTION GT ×3 (06:36→21:53)
[2023-07-17] MEDS: LEVOTHYROXINE 50 MCG TABLET GT (06:37)
[2023-07-17] MEDS: BUMETANIDE 1 MG TABLET GT ×2 (08:53→21:52)
[2023-07-17] MEDS: acetaZOLAMIDE 250 MG TABLET GT ×2 (08:53→21:51)
[2023-07-17] MEDS: FAMOTIDINE 20 MG TABLET GT (08:54)
[2023-07-17] MEDS: FERROUS SULFATE 220 MG/5 ML ELIXIR 330 MG GT (08:55)
[2023-07-17] MEDS: MULTIVITAMIN 1 TAB TABLET GT (08:56)
[2023-07-17] MEDS: levETIRAcetam 750 MG TABLET GT ×2 (08:56→21:52)
[2023-07-17] MEDS: POTASSIUM CHLORIDE 20 MEQ TAB.ER.PRT GT ×2 (08:56→21:53)
[2023-07-17] MEDS: VALPROIC ACID 250 MG/5 ML 1000 MG GT (08:57)
[2023-07-17] MEDS: CARVEDILOL 3.125 MG TABLET GT (21:52)
[2023-07-17] MEDS: LOSARTAN 25 MG TABLET GT (21:52)
--- NOTE | 2023-07-17 23:44 | PD.SAPROG ---
Progress Note - SubAcute DIAGNOSIS (1) Chronic respiratory failure with hypoxia: Status: Chronic (2) Dependent on ventilator: Status: Chronic (3) Congestive cardiac failure: Status: Chronic (4) Epilepsy, unspecified, intractable, without status epilepticus: Status: Chronic (5) Anemia: Status: Chronic (6) Hypothyroidism, unspecified: Status: Chronic (7) Developmental disorder of scholastic skills, unspecified: Status: Chronic (8) Age-related osteoporosis without current pathological fracture: Status: Chronic (9) Gastrostomy status: Status: Chronic (10) Tracheostomy status: Status: Chronic SUBJECTIVE Fever:: none GI:: none Shortness of Breath:: none GI:: no complaints Pain:: none OBJECTIVE Most recent vital signs: Last Vital Signs Temp 96.6 F L 07/17/23 18:00 Pulse 60 07/17/23 21:52 Resp 22 H 07/17/23 18:00 BP 110/66 07/17/23 21:52 Pulse Ox 100 07/17/23 18:00 O2 Del Method Mechanical Ventilation 07/16/23 17:52 FiO2 30 07/17/23 11:35 Neurological:: awake Speech:: nods head and appropriate (Sometimes) Answers questions:: sometimes Respiratory:: lungs clear Cardiovascular: RRR Abdomen: soft and nontender Decubitus:: none Tracheostomy:: to ventilator Feeding per:: G tube Complaints:: none ASSESSMENT & PLAN Assessment: Patient with cognitive function sara. ventilator dependent. No distress. Stable condition. Diagnosis and treatment reviewed. Pt does not tolerate weaning from Ventilator. Family updated in IDT Plan: Current treatment continued
[2023-07-18] VITALS (13 sets, daily range): BP systolic 88–111; BP diastolic 54–72; PULSE 66–93; RESP 20–23; TEMP 35.9–36.6; O2SAT 97–100
[2023-07-18] MEDS: IPRATROPIUM/ALBUTEROL 3 ML AMPUL.NEB INH ×3 (00:35→11:25)
[2023-07-18] MEDS: LACTULOSE 10 GM/15 ML SOLUTION GT ×3 (06:13→21:07)
[2023-07-18] MEDS: LEVOTHYROXINE 50 MCG TABLET GT (06:13)
[2023-07-18] MEDS: BUMETANIDE 1 MG TABLET GT ×2 (09:29→21:05)
[2023-07-18] MEDS: acetaZOLAMIDE 250 MG TABLET GT ×2 (09:29→21:04)
[2023-07-18] MEDS: FAMOTIDINE 20 MG TABLET GT (09:30)
[2023-07-18] MEDS: CARVEDILOL 3.125 MG TABLET GT (09:30)
[2023-07-18] MEDS: MULTIVITAMIN 1 TAB TABLET GT (09:31)
[2023-07-18] MEDS: POTASSIUM CHLORIDE 20 MEQ TAB.ER.PRT GT ×2 (09:31→21:07)
[2023-07-18] MEDS: levETIRAcetam 750 MG TABLET GT ×2 (09:31→21:06)
[2023-07-18] MEDS: FERROUS SULFATE 220 MG/5 ML ELIXIR 330 MG GT (09:31)
[2023-07-18] MEDS: VALPROIC ACID 250 MG/5 ML 1000 MG GT (09:31)
[2023-07-19] VITALS (11 sets, daily range): BP systolic 97–112; BP diastolic 61–72; PULSE 64–93; RESP 20–26; TEMP 36–36.3; O2SAT 95–100
[2023-07-19] MEDS: LACTULOSE 10 GM/15 ML SOLUTION GT ×2 (05:28→21:10)
[2023-07-19] MEDS: LEVOTHYROXINE 50 MCG TABLET GT (05:28)
[2023-07-19] MEDS: IPRATROPIUM/ALBUTEROL 3 ML AMPUL.NEB INH ×3 (07:02→18:35)
[2023-07-19] MEDS: acetaZOLAMIDE 250 MG TABLET GT ×2 (08:46→20:41)
[2023-07-19] MEDS: BUMETANIDE 1 MG TABLET GT ×2 (08:46→20:41)
[2023-07-19] MEDS: FAMOTIDINE 20 MG TABLET GT (08:47)
[2023-07-19] MEDS: CARVEDILOL 3.125 MG TABLET GT ×2 (08:47→20:41)
[2023-07-19] MEDS: POTASSIUM CHLORIDE 20 MEQ TAB.ER.PRT GT ×2 (08:48→20:42)
[2023-07-19] MEDS: levETIRAcetam 750 MG TABLET GT ×2 (08:48→20:42)
[2023-07-19] MEDS: FERROUS SULFATE 220 MG/5 ML ELIXIR 330 MG GT (08:48)
[2023-07-19] MEDS: MULTIVITAMIN 1 TAB TABLET GT (08:48)
[2023-07-19] MEDS: VALPROIC ACID 250 MG/5 ML 1000 MG GT (08:49)
[2023-07-19] MEDS: LOSARTAN 25 MG TABLET GT (20:42)
[2023-07-20] VITALS (13 sets, daily range): BP systolic 91–111; BP diastolic 53–68; PULSE 65–84; RESP 20–22; TEMP 36.1–36.8; O2SAT 96–100
[2023-07-20] MEDS: IPRATROPIUM/ALBUTEROL 3 ML AMPUL.NEB INH ×4 (00:42→18:05)
[2023-07-20] MEDS: acetaZOLAMIDE 250 MG TABLET GT ×2 (09:13→20:35)
[2023-07-20] MEDS: BUMETANIDE 1 MG TABLET GT ×2 (09:13→20:35)
[2023-07-20] MEDS: CARVEDILOL 3.125 MG TABLET GT (09:14)
[2023-07-20] MEDS: FAMOTIDINE 20 MG TABLET GT (09:15)
[2023-07-20] MEDS: levETIRAcetam 750 MG TABLET GT ×2 (09:15→20:37)
[2023-07-20] MEDS: FERROUS SULFATE 220 MG/5 ML ELIXIR 330 MG GT (09:15)
[2023-07-20] MEDS: MULTIVITAMIN 1 TAB TABLET GT (09:15)
[2023-07-20] MEDS: POTASSIUM CHLORIDE 20 MEQ TAB.ER.PRT GT ×2 (09:16→20:37)
[2023-07-20] MEDS: VALPROIC ACID 250 MG/5 ML 1000 MG GT (09:16)
--- NOTE | 2023-07-20 10:30 | PC.NURSE ---
Resident did not go to morning activities as it was cancelled by Promotional Model.
[2023-07-20] MEDS: LACTULOSE 10 GM/15 ML SOLUTION GT ×2 (14:20→21:25)
--- NOTE | 2023-07-20 15:26 | CHAP ---
10:00 AM Visited by spiritual care volunteer Provided prayer for Patient.
[2023-07-21] VITALS (9 sets, daily range): BP systolic 95–121; BP diastolic 57–70; PULSE 68–82; RESP 18–25; TEMP 36.2–36.4; O2SAT 95–100
[2023-07-21] MEDS: IPRATROPIUM/ALBUTEROL 3 ML AMPUL.NEB INH ×4 (00:30→19:22)
[2023-07-21] MEDS: LACTULOSE 10 GM/15 ML SOLUTION GT (05:12)
[2023-07-21] MEDS: LEVOTHYROXINE 50 MCG TABLET GT (05:12)
[2023-07-21] MEDS: acetaZOLAMIDE 250 MG TABLET GT (09:10)
[2023-07-21] MEDS: CARVEDILOL 3.125 MG TABLET GT (09:11)
[2023-07-21] MEDS: BUMETANIDE 1 MG TABLET GT (09:11)
[2023-07-21] MEDS: FERROUS SULFATE 220 MG/5 ML ELIXIR 330 MG GT (09:12)
[2023-07-21] MEDS: FAMOTIDINE 20 MG TABLET GT (09:12)
[2023-07-21] MEDS: MULTIVITAMIN 1 TAB TABLET GT (09:13)
[2023-07-21] MEDS: VALPROIC ACID 250 MG/5 ML 1000 MG GT (09:13)
[2023-07-21] MEDS: POTASSIUM CHLORIDE 20 MEQ TAB.ER.PRT GT (09:13)
[2023-07-21] MEDS: levETIRAcetam 750 MG TABLET GT (09:13)
[2023-07-21] MEDS: MAGNESIUM HYDROXIDE 30 ML ORAL SUSP ML GT (09:14)
--- NOTE | 2023-07-21 20:48 | PD.SAPROG ---
Progress Note - SubAcute DIAGNOSIS (1) Chronic respiratory failure with hypoxia: Status: Chronic (2) Dependent on ventilator: Status: Chronic (3) Congestive cardiac failure: Status: Chronic (4) Epilepsy, unspecified, intractable, without status epilepticus: Status: Chronic (5) Anemia: Status: Chronic (6) Hypothyroidism, unspecified: Status: Chronic (7) Developmental disorder of scholastic skills, unspecified: Status: Chronic (8) Age-related osteoporosis without current pathological fracture: Status: Chronic (9) Gastrostomy status: Status: Chronic (10) Tracheostomy status: Status: Chronic SUBJECTIVE Fever:: none GI:: none Shortness of Breath:: none GI:: no complaints Pain:: none OBJECTIVE Most recent vital signs: Last Vital Signs Temp 97.4 F 07/21/23 05:59 Pulse 72 07/21/23 09:11 Resp 24 H 07/21/23 06:15 BP 121/68 07/21/23 09:11 Pulse Ox 100 07/21/23 06:15 O2 Del Method Mechanical Ventilation 07/21/23 05:59 FiO2 31 07/21/23 06:15 Neurological:: awake Speech:: nods head and appropriate (Sometimes) Answers questions:: sometimes Respiratory:: lungs clear Cardiovascular: RRR Abdomen: soft and nontender Decubitus:: none Tracheostomy:: to ventilator Feeding per:: G tube Complaints:: none ASSESSMENT & PLAN Assessment: Patient with cognitive function sara. ventilator dependent. No distress. Stable condition. Diagnosis and treatment reviewed. Pt does not tolerate weaning from Ventilator. Family updated in IDT Plan: Current treatment continued
[2023-07-22] VITALS (10 sets, daily range): BP systolic 93–118; BP diastolic 60–77; PULSE 67–82; RESP 20–23; TEMP 36.2–36.6; O2SAT 97–100
[2023-07-22] MEDS: LEVOTHYROXINE 50 MCG TABLET GT (05:24)
[2023-07-22] MEDS: LACTULOSE 10 GM/15 ML SOLUTION GT ×3 (05:24→22:55)
[2023-07-22] MEDS: IPRATROPIUM/ALBUTEROL 3 ML AMPUL.NEB INH ×4 (06:15→19:12)
[2023-07-22] MEDS: BUMETANIDE 1 MG TABLET GT (09:04)
[2023-07-22] MEDS: acetaZOLAMIDE 250 MG TABLET GT ×2 (09:04→21:55)
[2023-07-22] MEDS: levETIRAcetam 750 MG TABLET GT ×2 (09:05→21:57)
[2023-07-22] MEDS: POTASSIUM CHLORIDE 20 MEQ TAB.ER.PRT GT ×2 (09:05→21:57)
[2023-07-22] MEDS: MULTIVITAMIN 1 TAB TABLET GT (09:06)
[2023-07-22] MEDS: FERROUS SULFATE 220 MG/5 ML ELIXIR 330 MG GT (09:06)
[2023-07-22] MEDS: VALPROIC ACID 250 MG/5 ML 1000 MG GT (09:06)
[2023-07-22] MEDS: FAMOTIDINE 20 MG TABLET GT (09:06)
[2023-07-22] MEDS: CARVEDILOL 3.125 MG TABLET GT (21:57)
[2023-07-23] VITALS (12 sets, daily range): BP systolic 99–114; BP diastolic 61–69; PULSE 60–89; RESP 20–25; TEMP 36.2–36.6; O2SAT 98–100
[2023-07-23] MEDS: IPRATROPIUM/ALBUTEROL 3 ML AMPUL.NEB INH ×4 (01:06→19:18)
[2023-07-23] MEDS: LEVOTHYROXINE 50 MCG TABLET GT (05:12)
[2023-07-23] MEDS: LACTULOSE 10 GM/15 ML SOLUTION GT ×3 (05:12→21:25)
[2023-07-23] MEDS: acetaZOLAMIDE 250 MG TABLET GT ×2 (08:49→21:25)
[2023-07-23] MEDS: POTASSIUM CHLORIDE 20 MEQ TAB.ER.PRT GT ×2 (08:52→21:26)
[2023-07-23] MEDS: FERROUS SULFATE 220 MG/5 ML ELIXIR 330 MG GT (08:52)
[2023-07-23] MEDS: levETIRAcetam 750 MG TABLET GT ×2 (08:52→21:26)
[2023-07-23] MEDS: FAMOTIDINE 20 MG TABLET GT (08:52)
[2023-07-23] MEDS: MULTIVITAMIN 1 TAB TABLET GT (08:53)
[2023-07-23] MEDS: VALPROIC ACID 250 MG/5 ML 1000 MG GT (08:54)
--- NOTE | 2023-07-23 09:30 | CHAP ---
Patent was prayed for by the Spiritual Care Volunteer who visited them.
[2023-07-23] MEDS: CARVEDILOL 3.125 MG TABLET GT (21:26)
[2023-07-23] MEDS: guaiFENesin Liq 100 MG/5 ML LIQUID 300 MG GT (21:26)
[2023-07-23] MEDS: LOSARTAN 25 MG TABLET GT (21:26)
[2023-07-23] MEDS: ACETAMINOPHEN 325 MG TABLET 650 MG GT (21:27)
[2023-07-24] VITALS (10 sets, daily range): BP systolic 92–118; BP diastolic 56–69; PULSE 66–79; RESP 20–24; TEMP 36.2; O2SAT 99–100
[2023-07-24] MEDS: IPRATROPIUM/ALBUTEROL 3 ML AMPUL.NEB INH ×4 (00:48→18:55)
[2023-07-24] MEDS: acetaZOLAMIDE 250 MG TABLET GT ×2 (09:01→21:00)
[2023-07-24] MEDS: CARVEDILOL 3.125 MG TABLET GT (09:02)
[2023-07-24] MEDS: FAMOTIDINE 20 MG TABLET GT (09:03)
[2023-07-24] MEDS: FERROUS SULFATE 220 MG/5 ML ELIXIR 330 MG GT (09:03)
[2023-07-24] MEDS: POTASSIUM CHLORIDE 20 MEQ TAB.ER.PRT GT ×2 (09:03→21:02)
[2023-07-24] MEDS: VALPROIC ACID 250 MG/5 ML 1000 MG GT (09:03)
[2023-07-24] MEDS: levETIRAcetam 750 MG TABLET GT ×2 (09:03→21:02)
[2023-07-24] MEDS: MULTIVITAMIN 1 TAB TABLET GT (09:03)
[2023-07-24] MEDS: LACTULOSE 10 GM/15 ML SOLUTION GT ×2 (13:58→21:00)
[2023-07-25] VITALS (13 sets, daily range): BP systolic 94–123; BP diastolic 51–71; PULSE 67–95; RESP 20–26; TEMP 36.2–36.8; O2SAT 97–100
[2023-07-25] MEDS: IPRATROPIUM/ALBUTEROL 3 ML AMPUL.NEB INH ×4 (02:20→18:15)
[2023-07-25] MEDS: LACTULOSE 10 GM/15 ML SOLUTION GT ×3 (05:42→22:00)
[2023-07-25] MEDS: LEVOTHYROXINE 50 MCG TABLET GT (05:42)
[2023-07-25] MEDS: BUMETANIDE 1 MG TABLET GT ×2 (08:39→20:28)
[2023-07-25] MEDS: acetaZOLAMIDE 250 MG TABLET GT ×2 (08:39→20:28)
[2023-07-25] MEDS: POTASSIUM CHLORIDE 20 MEQ TAB.ER.PRT GT ×2 (08:40→20:30)
[2023-07-25] MEDS: levETIRAcetam 750 MG TABLET GT ×2 (08:40→20:29)
[2023-07-25] MEDS: CARVEDILOL 3.125 MG TABLET GT (08:40)
[2023-07-25] MEDS: FAMOTIDINE 20 MG TABLET GT (08:41)
[2023-07-25] MEDS: VALPROIC ACID 250 MG/5 ML 1000 MG GT (08:41)
[2023-07-25] MEDS: MULTIVITAMIN 1 TAB TABLET GT (08:41)
[2023-07-25] MEDS: FERROUS SULFATE 220 MG/5 ML ELIXIR 330 MG GT (08:41)
--- NOTE | 2023-07-25 15:50 | PD.SAPROG ---
Progress Note - SubAcute DIAGNOSIS (1) Chronic respiratory failure with hypoxia: Status: Chronic (2) Dependent on ventilator: Status: Chronic (3) Congestive cardiac failure: Status: Chronic (4) Epilepsy, unspecified, intractable, without status epilepticus: Status: Chronic (5) Anemia: Status: Chronic (6) Hypothyroidism, unspecified: Status: Chronic (7) Developmental disorder of scholastic skills, unspecified: Status: Chronic (8) Age-related osteoporosis without current pathological fracture: Status: Chronic (9) Gastrostomy status: Status: Chronic (10) Tracheostomy status: Status: Chronic SUBJECTIVE Fever:: none GI:: none Shortness of Breath:: none GI:: no complaints Pain:: none OBJECTIVE Most recent vital signs: Last Vital Signs Temp 97.1 F 07/25/23 11:31 Pulse 71 07/25/23 11:31 Resp 20 07/25/23 11:31 BP 94/51 L 07/25/23 11:31 Pulse Ox 99 07/25/23 11:07 O2 Del Method Mechanical Ventilation 07/22/23 17:31 FiO2 31 07/25/23 11:07 Neurological:: awake Speech:: nods head and appropriate (Sometimes) Answers questions:: sometimes Respiratory:: lungs clear Cardiovascular: RRR Abdomen: soft and nontender Decubitus:: none Tracheostomy:: to ventilator Feeding per:: G tube Complaints:: none ASSESSMENT & PLAN Assessment: Patient with cognitive function sara. ventilator dependent. No distress. Stable condition. Diagnosis and treatment reviewed. Pt does not tolerate weaning from Ventilator. Family updated in IDT Plan: Current treatment continued
[2023-07-26] VITALS (11 sets, daily range): BP systolic 99–108; BP diastolic 60–69; PULSE 60–102; RESP 22–29; TEMP 36.2–36.9; O2SAT 96–99
[2023-07-26] MEDS: IPRATROPIUM/ALBUTEROL 3 ML AMPUL.NEB INH ×4 (01:10→18:50)
[2023-07-26] MEDS: LACTULOSE 10 GM/15 ML SOLUTION GT ×3 (05:30→21:30)
[2023-07-26] MEDS: LEVOTHYROXINE 50 MCG TABLET GT (05:30)
[2023-07-26] MEDS: acetaZOLAMIDE 250 MG TABLET GT ×2 (09:03→21:30)
[2023-07-26] MEDS: POTASSIUM CHLORIDE 20 MEQ TAB.ER.PRT GT ×2 (09:04→21:31)
[2023-07-26] MEDS: levETIRAcetam 750 MG TABLET GT ×2 (09:04→21:31)
[2023-07-26] MEDS: BUMETANIDE 1 MG TABLET GT ×2 (09:04→21:30)
[2023-07-26] MEDS: FAMOTIDINE 20 MG TABLET GT (09:05)
[2023-07-26] MEDS: FERROUS SULFATE 220 MG/5 ML ELIXIR 330 MG GT (09:05)
[2023-07-26] MEDS: VALPROIC ACID 250 MG/5 ML 1000 MG GT (09:06)
[2023-07-26] MEDS: MULTIVITAMIN 1 TAB TABLET GT (09:06)
--- NOTE | 2023-07-26 11:10 | PC.CWCCOMPLE ---
Robotic Maintenance Technician Pharmacist monthly MRR
[2023-07-26] MEDS: ACETAMINOPHEN 325 MG TABLET 650 MG GT (21:31)
[2023-07-26] MEDS: guaiFENesin Liq 100 MG/5 ML LIQUID 300 MG GT (21:31)
[2023-07-27] VITALS (14 sets, daily range): BP systolic 96–135; BP diastolic 62–78; PULSE 54–95; RESP 20–28; TEMP 36.1–36.8; O2SAT 96–100
[2023-07-27] MEDS: IPRATROPIUM/ALBUTEROL 3 ML AMPUL.NEB INH ×4 (00:25→19:00)
[2023-07-27] MEDS: LEVOTHYROXINE 50 MCG TABLET GT (05:06)
[2023-07-27] MEDS: LACTULOSE 10 GM/15 ML SOLUTION GT ×3 (05:06→21:03)
[2023-07-27] MEDS: BUMETANIDE 1 MG TABLET GT ×2 (09:18→20:27)
[2023-07-27] MEDS: acetaZOLAMIDE 250 MG TABLET GT ×2 (09:18→20:27)
[2023-07-27] MEDS: POTASSIUM CHLORIDE 20 MEQ TAB.ER.PRT GT ×2 (09:19→20:29)
[2023-07-27] MEDS: levETIRAcetam 750 MG TABLET GT ×2 (09:19→20:30)
[2023-07-27] MEDS: MULTIVITAMIN 1 TAB TABLET GT (09:20)
[2023-07-27] MEDS: FERROUS SULFATE 220 MG/5 ML ELIXIR 330 MG GT (09:20)
[2023-07-27] MEDS: FAMOTIDINE 20 MG TABLET GT (09:20)
[2023-07-27] MEDS: VALPROIC ACID 250 MG/5 ML 1000 MG GT (09:21)
--- NOTE | 2023-07-27 14:05 | PD.SAPROG ---
Progress Note - SubAcute DIAGNOSIS (1) Chronic respiratory failure with hypoxia: Status: Chronic (2) Dependent on ventilator: Status: Chronic (3) Congestive cardiac failure: Status: Chronic (4) Epilepsy, unspecified, intractable, without status epilepticus: Status: Chronic (5) Anemia: Status: Chronic (6) Hypothyroidism, unspecified: Status: Chronic (7) Developmental disorder of scholastic skills, unspecified: Status: Chronic (8) Age-related osteoporosis without current pathological fracture: Status: Chronic (9) Gastrostomy status: Status: Chronic (10) Tracheostomy status: Status: Chronic SUBJECTIVE Fever:: none GI:: none Shortness of Breath:: none GI:: no complaints Pain:: none OBJECTIVE Most recent vital signs: Last Vital Signs Temp 97 F 08/01/23 17:45 Pulse 72 08/01/23 17:45 Resp 26 H 08/01/23 17:45 BP 112/76 08/01/23 17:45 Pulse Ox 100 08/01/23 17:45 O2 Del Method Mechanical Ventilation 07/31/23 17:32 FiO2 31 08/01/23 11:40 Neurological:: awake Speech:: nods head and appropriate (Sometimes) Answers questions:: sometimes Respiratory:: lungs clear Cardiovascular: RRR Abdomen: soft and nontender Decubitus:: none Tracheostomy:: to ventilator Feeding per:: G tube Complaints:: none ASSESSMENT & PLAN Assessment: Patient with cognitive function sara. ventilator dependent. No distress. Stable condition. Diagnosis and treatment reviewed. Pt does not tolerate weaning from Ventilator. Family updated in IDT Plan: Current treatment continued
[2023-07-27] MEDS: COVID VAC 23-24(12UP)(ANDU)/PF 50 MCG/0.5 ML SYRINGE IMi (16:36)
[2023-07-27] MEDS: MAGNESIUM HYDROXIDE 30 ML ORAL SUSP ML GT (21:44)
[2023-07-28] VITALS (12 sets, daily range): BP systolic 106–127; BP diastolic 65–86; PULSE 72–102; RESP 20–27; TEMP 36.1–36.6; O2SAT 94–99
[2023-07-28] MEDS: IPRATROPIUM/ALBUTEROL 3 ML AMPUL.NEB INH ×4 (01:03→20:04)
[2023-07-28] MEDS: LACTULOSE 10 GM/15 ML SOLUTION GT ×3 (06:00→21:25)
[2023-07-28] MEDS: LEVOTHYROXINE 50 MCG TABLET GT (06:00)
[2023-07-28] MEDS: acetaZOLAMIDE 250 MG TABLET GT ×2 (08:34→21:25)
[2023-07-28] MEDS: BUMETANIDE 1 MG TABLET GT ×2 (08:34→21:25)
[2023-07-28] MEDS: levETIRAcetam 750 MG TABLET GT ×2 (08:35→21:26)
[2023-07-28] MEDS: POTASSIUM CHLORIDE 20 MEQ TAB.ER.PRT GT ×2 (08:35→21:26)
[2023-07-28] MEDS: MULTIVITAMIN 1 TAB TABLET GT (08:36)
[2023-07-28] MEDS: FAMOTIDINE 20 MG TABLET GT (08:36)
[2023-07-28] MEDS: FERROUS SULFATE 220 MG/5 ML ELIXIR 330 MG GT (08:36)
[2023-07-28] MEDS: VALPROIC ACID 250 MG/5 ML 1000 MG GT (08:36)
--- NOTE | 2023-07-28 14:04 | PC.NURSE ---
See EMR Summary for further Immunization charting. Resident received Spikevax booster for -24 after informed consent completed. Left deltoid Moderna Spikevax Lot [id number] 10/20/23.
--- NOTE | 2023-07-28 14:06 | PC.SS ---
Resident received an unannounced visit from [facility] counselor Alex Zamora, no questions or concerns from counselor. Resident father is aware of visit and has no questions at this time.
--- NOTE | 2023-07-28 18:11 | PC.NURSE ---
Resident receive Moderna Spikevax Lot [id number] 10/20/23 on the left deltoid. No s/s of allergic reaction and asymptomatic.
[2023-07-29] VITALS (11 sets, daily range): BP systolic 100–122; BP diastolic 62–75; PULSE 70–93; RESP 20–24; TEMP 35.7–36.2; O2SAT 97–99
[2023-07-29] MEDS: IPRATROPIUM/ALBUTEROL 3 ML AMPUL.NEB INH ×4 (02:00→18:00)
[2023-07-29] MEDS: LACTULOSE 10 GM/15 ML SOLUTION GT ×3 (05:08→21:12)
[2023-07-29] MEDS: LEVOTHYROXINE 50 MCG TABLET GT (05:08)
[2023-07-29] MEDS: acetaZOLAMIDE 250 MG TABLET GT ×2 (09:17→20:55)
[2023-07-29] MEDS: FERROUS SULFATE 220 MG/5 ML ELIXIR 330 MG GT (09:18)
[2023-07-29] MEDS: MULTIVITAMIN 1 TAB TABLET GT (09:18)
[2023-07-29] MEDS: FAMOTIDINE 20 MG TABLET GT (09:18)
[2023-07-29] MEDS: POTASSIUM CHLORIDE 20 MEQ TAB.ER.PRT GT ×2 (09:18→20:57)
[2023-07-29] MEDS: CARVEDILOL 3.125 MG TABLET GT (09:18)
[2023-07-29] MEDS: levETIRAcetam 750 MG TABLET GT ×2 (09:18→20:56)
[2023-07-29] MEDS: VALPROIC ACID 250 MG/5 ML 1000 MG GT (09:18)
[2023-07-29] MEDS: BUMETANIDE 1 MG TABLET GT (21:01)
[2023-07-30] VITALS (11 sets, daily range): BP systolic 99–118; BP diastolic 60–73; PULSE 59–87; RESP 20–22; TEMP 36.2–36.3; O2SAT 97–100
[2023-07-30] MEDS: IPRATROPIUM/ALBUTEROL 3 ML AMPUL.NEB INH ×5 (00:10→19:50)
[2023-07-30] MEDS: LACTULOSE 10 GM/15 ML SOLUTION GT ×3 (05:39→22:00)
[2023-07-30] MEDS: acetaZOLAMIDE 250 MG TABLET GT ×2 (08:32→20:28)
[2023-07-30] MEDS: levETIRAcetam 750 MG TABLET GT ×2 (08:34→20:31)
[2023-07-30] MEDS: POTASSIUM CHLORIDE 20 MEQ TAB.ER.PRT GT ×2 (08:35→20:32)
[2023-07-30] MEDS: BUMETANIDE 1 MG TABLET GT ×2 (08:35→21:00)
[2023-07-30] MEDS: FAMOTIDINE 20 MG TABLET GT (08:37)
[2023-07-30] MEDS: FERROUS SULFATE 220 MG/5 ML ELIXIR 330 MG GT (08:37)
[2023-07-30] MEDS: MULTIVITAMIN 1 TAB TABLET GT (08:38)
[2023-07-30] MEDS: VALPROIC ACID 250 MG/5 ML 1000 MG GT (08:38)
--- NOTE | 2023-07-30 09:58 | CHAP ---
Patient was sleeping restfully. Prayed silent prayer near bedside.
--- NOTE | 2023-07-30 10:01 | CHAP ---
Patient seemed to express gratitude for visit and prayer.
[2023-07-30] MEDS: CARVEDILOL 3.125 MG TABLET GT (20:30)
[2023-07-31] VITALS (11 sets, daily range): BP systolic 95–111; BP diastolic 52–75; PULSE 66–92; RESP 20–24; TEMP 36.1–36.6; O2SAT 98–100
[2023-07-31] MEDS: IPRATROPIUM/ALBUTEROL 3 ML AMPUL.NEB INH ×4 (01:45→18:10)
[2023-07-31] MEDS: LACTULOSE 10 GM/15 ML SOLUTION GT ×3 (05:23→21:07)
[2023-07-31] MEDS: LEVOTHYROXINE 50 MCG TABLET GT (05:23)
[2023-07-31] MEDS: acetaZOLAMIDE 250 MG TABLET GT ×2 (08:29→19:59)
[2023-07-31] MEDS: BUMETANIDE 1 MG TABLET GT ×2 (08:29→20:01)
[2023-07-31] MEDS: FAMOTIDINE 20 MG TABLET GT (08:30)
[2023-07-31] MEDS: FERROUS SULFATE 220 MG/5 ML ELIXIR 330 MG GT (08:31)
[2023-07-31] MEDS: levETIRAcetam 750 MG TABLET GT ×2 (08:31→20:01)
[2023-07-31] MEDS: POTASSIUM CHLORIDE 20 MEQ TAB.ER.PRT GT ×2 (08:32→20:02)
[2023-07-31] MEDS: MULTIVITAMIN 1 TAB TABLET GT (08:32)
[2023-07-31] MEDS: VALPROIC ACID 250 MG/5 ML 1000 MG GT (08:34)
[2023-08-01] VITALS (10 sets, daily range): BP systolic 100–118; BP diastolic 64–76; PULSE 60–89; RESP 20–26; TEMP 36.1–36.4; O2SAT 98–100
[2023-08-01] MEDS: IPRATROPIUM/ALBUTEROL 3 ML AMPUL.NEB INH ×4 (00:10→18:40)
[2023-08-01] MEDS: LACTULOSE 10 GM/15 ML SOLUTION GT ×3 (05:31→21:23)
[2023-08-01] MEDS: LEVOTHYROXINE 50 MCG TABLET GT (05:31)
[2023-08-01] MEDS: acetaZOLAMIDE 250 MG TABLET GT ×2 (09:00→21:23)
[2023-08-01] MEDS: BUMETANIDE 1 MG TABLET GT ×2 (09:01→21:23)
[2023-08-01] MEDS: CARVEDILOL 3.125 MG TABLET GT ×2 (09:01→21:24)
[2023-08-01] MEDS: levETIRAcetam 750 MG TABLET GT ×2 (09:02→21:24)
[2023-08-01] MEDS: FAMOTIDINE 20 MG TABLET GT (09:02)
[2023-08-01] MEDS: FERROUS SULFATE 220 MG/5 ML ELIXIR 330 MG GT (09:02)
[2023-08-01] MEDS: MULTIVITAMIN 1 TAB TABLET GT (09:03)
[2023-08-01] MEDS: POTASSIUM CHLORIDE 20 MEQ TAB.ER.PRT GT ×2 (09:03→21:24)
[2023-08-01] MEDS: VALPROIC ACID 250 MG/5 ML 1000 MG GT (09:04)
[2023-08-02] VITALS (11 sets, daily range): BP systolic 95–114; BP diastolic 58–81; PULSE 65–92; RESP 20–24; TEMP 36.2–36.5; O2SAT 98–100
[2023-08-02] MEDS: ACETAMINOPHEN 325 MG TABLET 650 MG GT ×2 (01:25→08:53)
[2023-08-02] MEDS: LACTULOSE 10 GM/15 ML SOLUTION GT ×3 (05:23→21:18)
[2023-08-02] MEDS: LEVOTHYROXINE 50 MCG TABLET GT (05:23)
--- NOTE | 2023-08-02 06:27 | PC.NURSE ---
Resident had trach change at 0115 with large amount of bleeding noted in suction tubing and around trach site. Tylenol given at 0125 with good effect. Sitcom on TV. Positioned for comfort. Resident resting with eyes closed in apparent comfort at 0230. Continue to observe.
[2023-08-02] MEDS: IPRATROPIUM/ALBUTEROL 3 ML AMPUL.NEB INH ×4 (06:46→18:37)
[2023-08-02] MEDS: acetaZOLAMIDE 250 MG TABLET GT ×2 (08:43→21:19)
[2023-08-02] MEDS: BUMETANIDE 1 MG TABLET GT ×2 (08:45→21:20)
[2023-08-02] MEDS: FAMOTIDINE 20 MG TABLET GT (08:49)
[2023-08-02] MEDS: FERROUS SULFATE 220 MG/5 ML ELIXIR 330 MG GT (08:50)
[2023-08-02] MEDS: levETIRAcetam 750 MG TABLET GT ×2 (08:50→21:21)
[2023-08-02] MEDS: MULTIVITAMIN 1 TAB TABLET GT (08:50)
[2023-08-02] MEDS: VALPROIC ACID 250 MG/5 ML 1000 MG GT (08:51)
[2023-08-02] MEDS: POTASSIUM CHLORIDE 20 MEQ TAB.ER.PRT GT ×2 (08:51→21:22)
--- NOTE | 2023-08-02 11:09 | PC.NURSE ---
Resident continues to have bleeding noted at trach site. Wound care to trach was provided after bed bath and RN made aware. RN observed hypergranulation to area. Wound consult to be ordered. Resident showed s/s of pain earlier in shift and received Tylenol at 0853 with positive effect until bed bath was provided. Resident is currently resting with eyes closed and no s/s of pain or discomfort noted. Call light in reach. Will continue to monitor.
[2023-08-03] VITALS (10 sets, daily range): BP systolic 93–117; BP diastolic 58–75; PULSE 68–84; RESP 20–24; TEMP 36.1–36.3; O2SAT 98–100
[2023-08-03] MEDS: IPRATROPIUM/ALBUTEROL 3 ML AMPUL.NEB INH ×4 (00:34→18:05)
[2023-08-03] MEDS: LEVOTHYROXINE 50 MCG TABLET GT (05:39)
[2023-08-03] MEDS: LACTULOSE 10 GM/15 ML SOLUTION GT ×3 (05:39→21:00)
[2023-08-03] MEDS: acetaZOLAMIDE 250 MG TABLET GT ×2 (09:20→20:11)
[2023-08-03] MEDS: BUMETANIDE 1 MG TABLET GT ×2 (09:21→20:11)
[2023-08-03] MEDS: CARVEDILOL 3.125 MG TABLET GT (09:21)
[2023-08-03] MEDS: POTASSIUM CHLORIDE 20 MEQ TAB.ER.PRT GT ×2 (09:22→20:13)
[2023-08-03] MEDS: FAMOTIDINE 20 MG TABLET GT (09:22)
[2023-08-03] MEDS: MULTIVITAMIN 1 TAB TABLET GT (09:22)
[2023-08-03] MEDS: levETIRAcetam 750 MG TABLET GT ×2 (09:22→20:13)
[2023-08-03] MEDS: FERROUS SULFATE 220 MG/5 ML ELIXIR 330 MG GT (09:22)
[2023-08-03] MEDS: VALPROIC ACID 250 MG/5 ML 1000 MG GT (09:22)
[2023-08-03] MEDS: SILVER NITRATE APPLICATOR 1 EACH STICK..EA. TOP (09:25)
--- NOTE | 2023-08-03 13:40 | CHAP ---
11:30 AM Visited by spiritual care volunteer Provided prayer for Patient.
[2023-08-04] VITALS (10 sets, daily range): BP systolic 104–122; BP diastolic 68–71; PULSE 66–127; RESP 20–30; TEMP 36–36.7; O2SAT 98–100
[2023-08-04] MEDS: IPRATROPIUM/ALBUTEROL 3 ML AMPUL.NEB INH ×4 (00:10→18:50)
[2023-08-04] MEDS: LEVOTHYROXINE 50 MCG TABLET GT (05:56)
[2023-08-04] MEDS: LACTULOSE 10 GM/15 ML SOLUTION GT ×3 (05:56→22:13)
[2023-08-04] MEDS: acetaZOLAMIDE 250 MG TABLET GT ×2 (09:15→20:19)
[2023-08-04] MEDS: BUMETANIDE 1 MG TABLET GT ×2 (09:15→20:19)
[2023-08-04] MEDS: FAMOTIDINE 20 MG TABLET GT (09:16)
[2023-08-04] MEDS: CARVEDILOL 3.125 MG TABLET GT (09:16)
[2023-08-04] MEDS: levETIRAcetam 750 MG TABLET GT ×2 (09:17→20:20)
[2023-08-04] MEDS: FERROUS SULFATE 220 MG/5 ML ELIXIR 330 MG GT (09:17)
[2023-08-04] MEDS: POTASSIUM CHLORIDE 20 MEQ TAB.ER.PRT GT ×2 (09:18→20:20)
[2023-08-04] MEDS: VALPROIC ACID 250 MG/5 ML 1000 MG GT (09:18)
[2023-08-04] MEDS: MULTIVITAMIN 1 TAB TABLET GT (09:18)
[2023-08-04] MEDS: ACETAMINOPHEN 325 MG TABLET 650 MG GT (11:45)
[2023-08-05] VITALS (12 sets, daily range): BP systolic 99–122; BP diastolic 61–76; PULSE 70–91; RESP 20–26; TEMP 36.2–36.3; O2SAT 96–100
[2023-08-05] MEDS: IPRATROPIUM/ALBUTEROL 3 ML AMPUL.NEB INH ×4 (00:30→19:00)
[2023-08-05] MEDS: LEVOTHYROXINE 50 MCG TABLET GT (05:11)
[2023-08-05] MEDS: LACTULOSE 10 GM/15 ML SOLUTION GT ×3 (05:11→21:06)
--- NOTE | 2023-08-05 08:00 | PC.NURSE ---
pt not in restraints at this time. pt not pulling at life sustaining tubing, confused, or altered at this time. call light placed appropriately, bed at lowest position, will continue to monitor.
[2023-08-05] MEDS: acetaZOLAMIDE 250 MG TABLET GT ×2 (08:42→20:11)
[2023-08-05] MEDS: CARVEDILOL 3.125 MG TABLET GT (08:45)
[2023-08-05] MEDS: FERROUS SULFATE 220 MG/5 ML ELIXIR 330 MG GT (08:45)
[2023-08-05] MEDS: FAMOTIDINE 20 MG TABLET GT (08:45)
[2023-08-05] MEDS: levETIRAcetam 750 MG TABLET GT ×2 (08:45→20:13)
[2023-08-05] MEDS: POTASSIUM CHLORIDE 20 MEQ TAB.ER.PRT GT ×2 (08:46→20:13)
[2023-08-05] MEDS: MULTIVITAMIN 1 TAB TABLET GT (08:46)
[2023-08-05] MEDS: VALPROIC ACID 250 MG/5 ML 1000 MG GT (08:47)
[2023-08-05] MEDS: BUMETANIDE 1 MG TABLET GT ×2 (09:00→20:12)
--- NOTE | 2023-08-05 14:05 | PD.SAPROG ---
Progress Note - SubAcute DIAGNOSIS (1) Chronic respiratory failure with hypoxia: Status: Chronic (2) Dependent on ventilator: Status: Chronic (3) Congestive cardiac failure: Status: Chronic (4) Epilepsy, unspecified, intractable, without status epilepticus: Status: Chronic (5) Anemia: Status: Chronic (6) Hypothyroidism, unspecified: Status: Chronic (7) Developmental disorder of scholastic skills, unspecified: Status: Chronic (8) Age-related osteoporosis without current pathological fracture: Status: Chronic (9) Gastrostomy status: Status: Chronic (10) Tracheostomy status: Status: Chronic SUBJECTIVE Fever:: none GI:: none Shortness of Breath:: none GI:: no complaints Pain:: none OBJECTIVE Most recent vital signs: Last Vital Signs Temp 97.4 F 08/09/23 17:52 Pulse 64 08/09/23 18:50 Resp 20 08/09/23 18:50 BP 122/80 08/09/23 17:52 Pulse Ox 100 08/09/23 18:50 O2 Del Method Mechanical Ventilation 08/08/23 12:00 FiO2 33 08/09/23 18:50 Neurological:: awake Speech:: nods head and appropriate (Sometimes) Answers questions:: sometimes Respiratory:: lungs clear Cardiovascular: RRR Abdomen: soft and nontender Decubitus:: none Tracheostomy:: to ventilator Feeding per:: G tube Complaints:: none ASSESSMENT & PLAN Assessment: Patient with cognitive function sara. ventilator dependent. No distress. Stable condition. Diagnosis and treatment reviewed. Pt does not tolerate weaning from Ventilator. Family updated in IDT Plan: Current treatment continued
[2023-08-06] VITALS (12 sets, daily range): BP systolic 97–117; BP diastolic 62–74; PULSE 59–87; RESP 20–27; TEMP 36.1–36.5; O2SAT 95–100
[2023-08-06] MEDS: IPRATROPIUM/ALBUTEROL 3 ML AMPUL.NEB INH ×4 (00:30→18:15)
[2023-08-06] MEDS: LEVOTHYROXINE 50 MCG TABLET GT (05:02)
[2023-08-06] MEDS: LACTULOSE 10 GM/15 ML SOLUTION GT ×3 (05:02→21:57)
[2023-08-06] MEDS: BUMETANIDE 1 MG TABLET GT ×2 (09:34→20:08)
[2023-08-06] MEDS: acetaZOLAMIDE 250 MG TABLET GT ×2 (09:34→20:08)
[2023-08-06] MEDS: FAMOTIDINE 20 MG TABLET GT (09:35)
[2023-08-06] MEDS: FERROUS SULFATE 220 MG/5 ML ELIXIR 330 MG GT (09:36)
[2023-08-06] MEDS: MULTIVITAMIN 1 TAB TABLET GT (09:36)
[2023-08-06] MEDS: levETIRAcetam 750 MG TABLET GT ×2 (09:36→20:10)
--- NOTE | 2023-08-06 09:36 | CHAP ---
Patient was sleeping peacefully. Prayed a silent prayer near bed.
[2023-08-06] MEDS: POTASSIUM CHLORIDE 20 MEQ TAB.ER.PRT GT ×2 (09:37→20:10)
[2023-08-06] MEDS: VALPROIC ACID 250 MG/5 ML 1000 MG GT (09:37)
--- NOTE | 2023-08-06 13:53 | PC.SS ---
Room visit: Resident is laying in bed with head of the bed elevated with call light properly placed with no signs of of distress. Resident will remain in current care as he has no changes, he remains on ventilator with GT in place for medication and nutrition. Staff will continue to meet all subacute needs as resident is unable to make needs known and is total care. Resident is not showing any changes in mood or behavior, SSD will continue to make contact and monitor for any changes.
[2023-08-07] VITALS (9 sets, daily range): BP systolic 99–117; BP diastolic 60–76; PULSE 64–91; RESP 20–25; TEMP 36–36.4; O2SAT 97–100
[2023-08-07] MEDS: LEVOTHYROXINE 50 MCG TABLET GT (05:19)
[2023-08-07] MEDS: LACTULOSE 10 GM/15 ML SOLUTION GT ×3 (05:19→22:27)
[2023-08-07] MEDS: IPRATROPIUM/ALBUTEROL 3 ML AMPUL.NEB INH ×4 (06:43→18:05)
[2023-08-07] MEDS: acetaZOLAMIDE 250 MG TABLET GT ×2 (08:39→20:38)
[2023-08-07] MEDS: BUMETANIDE 1 MG TABLET GT ×2 (08:40→20:39)
[2023-08-07] MEDS: FAMOTIDINE 20 MG TABLET GT (08:41)
[2023-08-07] MEDS: levETIRAcetam 750 MG TABLET GT ×2 (08:41→20:39)
[2023-08-07] MEDS: FERROUS SULFATE 220 MG/5 ML ELIXIR 330 MG GT (08:41)
[2023-08-07] MEDS: MULTIVITAMIN 1 TAB TABLET GT (08:41)
[2023-08-07] MEDS: POTASSIUM CHLORIDE 20 MEQ TAB.ER.PRT GT ×2 (08:42→20:39)
[2023-08-07] MEDS: VALPROIC ACID 250 MG/5 ML 1000 MG GT (08:43)
[2023-08-07] MEDS: CARVEDILOL 3.125 MG TABLET GT (20:39)
[2023-08-08] VITALS (12 sets, daily range): BP systolic 100–132; BP diastolic 61–81; PULSE 63–79; RESP 18–26; TEMP 36.1–36.4; O2SAT 98–100
[2023-08-08] MEDS: IPRATROPIUM/ALBUTEROL 3 ML AMPUL.NEB INH ×4 (00:25→18:13)
[2023-08-08] MEDS: LACTULOSE 10 GM/15 ML SOLUTION GT ×3 (05:03→21:05)
[2023-08-08] MEDS: LEVOTHYROXINE 50 MCG TABLET GT (05:03)
[2023-08-08] MEDS: acetaZOLAMIDE 250 MG TABLET GT ×2 (08:32→20:24)
[2023-08-08] MEDS: BUMETANIDE 1 MG TABLET GT ×2 (08:32→20:25)
[2023-08-08] MEDS: levETIRAcetam 750 MG TABLET GT ×2 (08:32→20:26)
[2023-08-08] MEDS: FERROUS SULFATE 220 MG/5 ML ELIXIR 330 MG GT (08:32)
[2023-08-08] MEDS: FAMOTIDINE 20 MG TABLET GT (08:32)
[2023-08-08] MEDS: POTASSIUM CHLORIDE 20 MEQ TAB.ER.PRT GT ×2 (08:33→20:27)
[2023-08-08] MEDS: MULTIVITAMIN 1 TAB TABLET GT (08:33)
[2023-08-08] MEDS: VALPROIC ACID 250 MG/5 ML 1000 MG GT (08:34)
[2023-08-09] VITALS (11 sets, daily range): BP systolic 94–126; BP diastolic 59–80; PULSE 22–91; RESP 20–24; TEMP 36.2–36.3; O2SAT 95–100
[2023-08-09] MEDS: IPRATROPIUM/ALBUTEROL 3 ML AMPUL.NEB INH ×4 (00:21→18:50)
[2023-08-09] MEDS: LEVOTHYROXINE 50 MCG TABLET GT (05:07)
[2023-08-09] MEDS: LACTULOSE 10 GM/15 ML SOLUTION GT (05:07)
[2023-08-09] MEDS: BUMETANIDE 1 MG TABLET GT ×2 (08:27→20:30)
[2023-08-09] MEDS: acetaZOLAMIDE 250 MG TABLET GT ×2 (08:27→20:30)
[2023-08-09] MEDS: FAMOTIDINE 20 MG TABLET GT (08:28)
[2023-08-09] MEDS: FERROUS SULFATE 220 MG/5 ML ELIXIR 330 MG GT (08:28)
[2023-08-09] MEDS: levETIRAcetam 750 MG TABLET GT ×2 (08:29→20:31)
[2023-08-09] MEDS: VALPROIC ACID 250 MG/5 ML 1000 MG GT (08:29)
[2023-08-09] MEDS: MULTIVITAMIN 1 TAB TABLET GT (08:29)
[2023-08-09] MEDS: POTASSIUM CHLORIDE 20 MEQ TAB.ER.PRT GT ×2 (08:29→20:31)
[2023-08-09] MEDS: CARVEDILOL 3.125 MG TABLET GT (20:31)
[2023-08-10] VITALS (10 sets, daily range): BP systolic 100–116; BP diastolic 60–78; PULSE 68–96; RESP 20–24; TEMP 36.1–36.4; O2SAT 98–100
[2023-08-10] MEDS: IPRATROPIUM/ALBUTEROL 3 ML AMPUL.NEB INH ×4 (00:57→19:00)
[2023-08-10] MEDS: LACTULOSE 10 GM/15 ML SOLUTION GT ×3 (05:26→21:17)
[2023-08-10] MEDS: LEVOTHYROXINE 50 MCG TABLET GT (05:26)
[2023-08-10] MEDS: acetaZOLAMIDE 250 MG TABLET GT ×2 (08:31→21:11)
[2023-08-10] MEDS: FAMOTIDINE 20 MG TABLET GT (08:32)
[2023-08-10] MEDS: CARVEDILOL 3.125 MG TABLET GT (08:32)
[2023-08-10] MEDS: BUMETANIDE 1 MG TABLET GT ×2 (08:32→21:11)
[2023-08-10] MEDS: FERROUS SULFATE 220 MG/5 ML ELIXIR 330 MG GT (08:34)
[2023-08-10] MEDS: levETIRAcetam 750 MG TABLET GT ×2 (08:34→21:14)
[2023-08-10] MEDS: MULTIVITAMIN 1 TAB TABLET GT (08:34)
[2023-08-10] MEDS: VALPROIC ACID 250 MG/5 ML 1000 MG GT (08:35)
[2023-08-10] MEDS: POTASSIUM CHLORIDE 20 MEQ TAB.ER.PRT GT ×2 (08:35→21:15)
--- NOTE | 2023-08-10 10:41 | CHAP ---
Patient was visited by a spiritual care volunteer on 08/10/2023 between [id number] and [id number] and received encouragement, prayer and/or a song.
[2023-08-11] VITALS (10 sets, daily range): BP systolic 104–127; BP diastolic 67–76; PULSE 69–91; RESP 20–24; TEMP 36.2–36.4; O2SAT 98–100
[2023-08-11] MEDS: IPRATROPIUM/ALBUTEROL 3 ML AMPUL.NEB INH ×4 (01:30→18:15)
[2023-08-11] MEDS: LEVOTHYROXINE 50 MCG TABLET GT (05:19)
[2023-08-11] MEDS: LACTULOSE 10 GM/15 ML SOLUTION GT ×3 (05:26→21:13)
[2023-08-11] MEDS: acetaZOLAMIDE 250 MG TABLET GT ×2 (08:50→20:29)
[2023-08-11] MEDS: CARVEDILOL 3.125 MG TABLET GT (08:51)
[2023-08-11] MEDS: BUMETANIDE 1 MG TABLET GT ×2 (08:51→20:29)
[2023-08-11] MEDS: FAMOTIDINE 20 MG TABLET GT (08:51)
[2023-08-11] MEDS: levETIRAcetam 750 MG TABLET GT ×2 (08:51→20:30)
[2023-08-11] MEDS: VALPROIC ACID 250 MG/5 ML 1000 MG GT (08:51)
[2023-08-11] MEDS: POTASSIUM CHLORIDE 20 MEQ TAB.ER.PRT GT ×2 (08:51→20:30)
[2023-08-11] MEDS: MULTIVITAMIN 1 TAB TABLET GT (08:51)
[2023-08-11] MEDS: FERROUS SULFATE 220 MG/5 ML ELIXIR 330 MG GT (08:51)
--- NOTE | 2023-08-11 14:53 | CHAP ---
11:15 AM visited by Spiritual Care Volunteer from [facility]. She provided kelton to patient.
--- NOTE | 2023-08-11 18:33 | PC.NURSE ---
Resident noted to have circular reddened area to left upper chest, suspicious of ringworm. Charge Nurse took photo and showed MD. Orders received to place resident in Contact Isolation. Nystatin cream and powder to be applied each shift for seven weeks. Treatment with antifungal cream and Nystatin powder administered as Nystatin cream has not been delivered at this time.
[2023-08-12] VITALS (12 sets, daily range): BP systolic 96–111; BP diastolic 58–68; PULSE 60–95; RESP 19–28; TEMP 36.2–36.6; O2SAT 89–100
[2023-08-12] MEDS: IPRATROPIUM/ALBUTEROL 3 ML AMPUL.NEB INH ×4 (00:20→19:00)
[2023-08-12] MEDS: LACTULOSE 10 GM/15 ML SOLUTION GT ×3 (05:06→21:54)
[2023-08-12] MEDS: LEVOTHYROXINE 50 MCG TABLET GT (05:07)
[2023-08-12] MEDS: acetaZOLAMIDE 250 MG TABLET GT ×2 (08:57→21:53)
[2023-08-12] MEDS: FAMOTIDINE 20 MG TABLET GT (08:58)
[2023-08-12] MEDS: FERROUS SULFATE 220 MG/5 ML ELIXIR 330 MG GT (08:59)
[2023-08-12] MEDS: levETIRAcetam 750 MG TABLET GT ×2 (09:00→21:53)
[2023-08-12] MEDS: MULTIVITAMIN 1 TAB TABLET GT (09:00)
[2023-08-12] MEDS: POTASSIUM CHLORIDE 20 MEQ TAB.ER.PRT GT ×2 (09:01→21:54)
[2023-08-12] MEDS: VALPROIC ACID 250 MG/5 ML 1000 MG GT (09:02)
[2023-08-12] MEDS: BUMETANIDE 1 MG TABLET GT ×2 (09:05→21:53)
--- NOTE | 2023-08-12 13:46 | PC.SS ---
Room visit: Resident is laying in bed with head of the bed elevated with call light properly placed with no signs of distress. Resident will remain in current care as he has no changes in care or condition. Resident remains on vent with GT in place with no signs of distress. He is total care unable to make needs known. Staff will continue to provide all subacute care needs. Resident is not ready to DC to lower level of care as he has a heavy care regimen family unable to provide care at home. This SSD will continue to make daily contact with resident and monitor for changes in mood or behavior, SSD will offer emotional support as he may needs.
--- NOTE | 2023-08-12 16:14 | PC.NURSE ---
Reviewed case of Ringworm noted yesterday to lt upper chest with IP nurse Asuncion. Later card writer hand and IP nurse able to speak to Dr. Lackey for consideration of treatment change. Did not change current treatment with Antifungal powder and cream (Nystatin) stated if treatment not resolving Ringworm in 7 days nurse walter notify and he will change treatment. Will carry out order and will hand off report to oncoming nurse. Will continbue with current treatment.
[2023-08-12] MEDS: guaiFENesin Liq 100 MG/5 ML LIQUID 300 MG GT (21:54)
[2023-08-12] MEDS: ACETAMINOPHEN 325 MG TABLET 650 MG GT (21:54)
[2023-08-13] VITALS (10 sets, daily range): BP systolic 106–124; BP diastolic 54–74; PULSE 75–112; RESP 20–28; TEMP 36.2–36.9; O2SAT 98–100
[2023-08-13] MEDS: IPRATROPIUM/ALBUTEROL 3 ML AMPUL.NEB INH ×4 (00:20→19:00)
[2023-08-13] MEDS: LACTULOSE 10 GM/15 ML SOLUTION GT ×3 (05:23→22:03)
[2023-08-13] MEDS: LEVOTHYROXINE 50 MCG TABLET GT (05:24)
[2023-08-13] MEDS: BUMETANIDE 1 MG TABLET GT ×2 (09:10→22:00)
[2023-08-13] MEDS: acetaZOLAMIDE 250 MG TABLET GT ×2 (09:10→21:56)
[2023-08-13] MEDS: MULTIVITAMIN 1 TAB TABLET GT (09:11)
[2023-08-13] MEDS: FERROUS SULFATE 220 MG/5 ML ELIXIR 330 MG GT (09:11)
[2023-08-13] MEDS: levETIRAcetam 750 MG TABLET GT ×2 (09:11→21:56)
[2023-08-13] MEDS: CARVEDILOL 3.125 MG TABLET GT ×2 (09:11→22:00)
[2023-08-13] MEDS: FAMOTIDINE 20 MG TABLET GT (09:11)
[2023-08-13] MEDS: POTASSIUM CHLORIDE 20 MEQ TAB.ER.PRT GT ×2 (09:12→21:57)
[2023-08-13] MEDS: VALPROIC ACID 250 MG/5 ML 1000 MG GT (09:12)
[2023-08-13] MEDS: guaiFENesin Liq 100 MG/5 ML LIQUID 300 MG GT (10:47)
[2023-08-13] MEDS: ACETAMINOPHEN 325 MG TABLET 650 MG GT (17:49)
--- NOTE | 2023-08-13 18:42 | PD.SAPROG ---
Progress Note - SubAcute DIAGNOSIS (1) Chronic respiratory failure with hypoxia: Status: Chronic (2) Dependent on ventilator: Status: Chronic (3) Congestive cardiac failure: Status: Chronic (4) Epilepsy, unspecified, intractable, without status epilepticus: Status: Chronic (5) Anemia: Status: Chronic (6) Hypothyroidism, unspecified: Status: Chronic (7) Developmental disorder of scholastic skills, unspecified: Status: Chronic (8) Age-related osteoporosis without current pathological fracture: Status: Chronic (9) Gastrostomy status: Status: Chronic (10) Tracheostomy status: Status: Chronic SUBJECTIVE Fever:: none GI:: none Shortness of Breath:: none GI:: no complaints Pain:: none OBJECTIVE Most recent vital signs: Last Vital Signs Temp 98.4 F 08/13/23 17:44 Pulse 112 H 08/13/23 17:44 Resp 28 H 08/13/23 17:44 BP 121/73 08/13/23 17:44 Pulse Ox 98 08/13/23 17:44 O2 Del Method Mechanical Ventilation 08/13/23 17:44 FiO2 33 08/13/23 12:17 Neurological:: awake Speech:: nods head and appropriate (Sometimes) Answers questions:: sometimes Respiratory:: lungs clear Cardiovascular: RRR Abdomen: soft and nontender Decubitus:: none Tracheostomy:: to ventilator Feeding per:: G tube Complaints:: none ASSESSMENT & PLAN Assessment: Patient with cognitive function sara. ventilator dependent. No distress. Stable condition. Diagnosis and treatment reviewed. Pt does not tolerate weaning from Ventilator. Family updated in IDT Plan: Current treatment continued
[2023-08-14] VITALS (11 sets, daily range): BP systolic 97–132; BP diastolic 59–72; PULSE 61–93; RESP 20–26; TEMP 36.2–36.5; O2SAT 96–100
[2023-08-14] MEDS: LEVOTHYROXINE 50 MCG TABLET GT (05:26)
[2023-08-14] MEDS: LACTULOSE 10 GM/15 ML SOLUTION GT ×3 (05:26→21:52)
[2023-08-14] MEDS: IPRATROPIUM/ALBUTEROL 3 ML AMPUL.NEB INH ×4 (07:00→18:50)
[2023-08-14] MEDS: BUMETANIDE 1 MG TABLET GT ×2 (08:53→21:51)
[2023-08-14] MEDS: acetaZOLAMIDE 250 MG TABLET GT ×2 (08:53→21:50)
[2023-08-14] MEDS: FAMOTIDINE 20 MG TABLET GT (08:54)
[2023-08-14] MEDS: CARVEDILOL 3.125 MG TABLET GT (08:54)
[2023-08-14] MEDS: levETIRAcetam 750 MG TABLET GT ×2 (08:55→21:51)
[2023-08-14] MEDS: MULTIVITAMIN 1 TAB TABLET GT (08:55)
[2023-08-14] MEDS: FERROUS SULFATE 220 MG/5 ML ELIXIR 330 MG GT (08:55)
[2023-08-14] MEDS: POTASSIUM CHLORIDE 20 MEQ TAB.ER.PRT GT ×2 (08:57→21:52)
[2023-08-14] MEDS: VALPROIC ACID 250 MG/5 ML 1000 MG GT (08:57)
[2023-08-15] VITALS (11 sets, daily range): BP systolic 96–113; BP diastolic 60–66; PULSE 64–88; RESP 20–27; TEMP 36.3–36.6; O2SAT 96–100
[2023-08-15] MEDS: IPRATROPIUM/ALBUTEROL 3 ML AMPUL.NEB INH ×4 (00:15→18:25)
[2023-08-15] MEDS: LEVOTHYROXINE 50 MCG TABLET GT (06:10)
[2023-08-15] MEDS: LACTULOSE 10 GM/15 ML SOLUTION GT ×3 (06:10→21:22)
[2023-08-15] MEDS: acetaZOLAMIDE 250 MG TABLET GT ×2 (08:13→20:10)
[2023-08-15] MEDS: BUMETANIDE 1 MG TABLET GT ×2 (08:13→20:10)
[2023-08-15] MEDS: FAMOTIDINE 20 MG TABLET GT (08:14)
[2023-08-15] MEDS: MULTIVITAMIN 1 TAB TABLET GT (08:16)
[2023-08-15] MEDS: FERROUS SULFATE 220 MG/5 ML ELIXIR 330 MG GT (08:16)
[2023-08-15] MEDS: levETIRAcetam 750 MG TABLET GT ×2 (08:16→20:11)
[2023-08-15] MEDS: VALPROIC ACID 250 MG/5 ML 1000 MG GT (08:17)
[2023-08-15] MEDS: POTASSIUM CHLORIDE 20 MEQ TAB.ER.PRT GT ×2 (08:17→20:11)
[2023-08-16] VITALS (13 sets, daily range): BP systolic 101–112; BP diastolic 65–69; PULSE 67–82; RESP 20–26; TEMP 36–36.4; O2SAT 95–100
[2023-08-16] MEDS: IPRATROPIUM/ALBUTEROL 3 ML AMPUL.NEB INH ×4 (01:30→21:00)
[2023-08-16] MEDS: LACTULOSE 10 GM/15 ML SOLUTION GT ×3 (05:09→21:32)
[2023-08-16] MEDS: LEVOTHYROXINE 50 MCG TABLET GT (05:10)
[2023-08-16] MEDS: acetaZOLAMIDE 250 MG TABLET GT ×2 (09:15→21:30)
[2023-08-16] MEDS: BUMETANIDE 1 MG TABLET GT ×2 (09:16→21:30)
[2023-08-16] MEDS: CARVEDILOL 3.125 MG TABLET GT (09:16)
[2023-08-16] MEDS: FAMOTIDINE 20 MG TABLET GT (09:17)
[2023-08-16] MEDS: FERROUS SULFATE 220 MG/5 ML ELIXIR 330 MG GT (09:17)
[2023-08-16] MEDS: MULTIVITAMIN 1 TAB TABLET GT (09:18)
[2023-08-16] MEDS: levETIRAcetam 750 MG TABLET GT ×2 (09:18→21:32)
[2023-08-16] MEDS: POTASSIUM CHLORIDE 20 MEQ TAB.ER.PRT GT ×2 (09:19→21:32)
[2023-08-16] MEDS: VALPROIC ACID 250 MG/5 ML 1000 MG GT (09:20)
[2023-08-17] VITALS (11 sets, daily range): BP systolic 95–158; BP diastolic 63–73; PULSE 66–85; RESP 20–23; TEMP 36.1–36.6; O2SAT 96–100
[2023-08-17] MEDS: IPRATROPIUM/ALBUTEROL 3 ML AMPUL.NEB INH ×4 (01:00→19:00)
[2023-08-17] MEDS: LEVOTHYROXINE 50 MCG TABLET GT (05:24)
[2023-08-17] MEDS: LACTULOSE 10 GM/15 ML SOLUTION GT ×3 (05:24→21:12)
[2023-08-17] MEDS: CARVEDILOL 3.125 MG TABLET GT (08:23)
[2023-08-17] MEDS: BUMETANIDE 1 MG TABLET GT ×2 (08:23→21:10)
[2023-08-17] MEDS: acetaZOLAMIDE 250 MG TABLET GT ×2 (08:23→21:10)
[2023-08-17] MEDS: levETIRAcetam 750 MG TABLET GT ×2 (08:41→21:12)
[2023-08-17] MEDS: FERROUS SULFATE 220 MG/5 ML ELIXIR 330 MG GT (08:41)
[2023-08-17] MEDS: FAMOTIDINE 20 MG TABLET GT (08:41)
[2023-08-17] MEDS: MULTIVITAMIN 1 TAB TABLET GT (08:42)
[2023-08-17] MEDS: VALPROIC ACID 250 MG/5 ML 1000 MG GT (08:43)
[2023-08-17] MEDS: POTASSIUM CHLORIDE 20 MEQ TAB.ER.PRT GT ×2 (08:43→21:12)
[2023-08-17] MEDS: SILVER NITRATE APPLICATOR 1 EACH STICK..EA. TOP (11:30)
--- NOTE | 2023-08-17 20:11 | PD.SAPROG ---
Progress Note - SubAcute DIAGNOSIS (1) Chronic respiratory failure with hypoxia: Status: Chronic (2) Dependent on ventilator: Status: Chronic (3) Congestive cardiac failure: Status: Chronic (4) Epilepsy, unspecified, intractable, without status epilepticus: Status: Chronic (5) Anemia: Status: Chronic (6) Hypothyroidism, unspecified: Status: Chronic (7) Developmental disorder of scholastic skills, unspecified: Status: Chronic (8) Age-related osteoporosis without current pathological fracture: Status: Chronic (9) Gastrostomy status: Status: Chronic (10) Tracheostomy status: Status: Chronic SUBJECTIVE Fever:: none GI:: none Shortness of Breath:: none GI:: no complaints Pain:: none OBJECTIVE Most recent vital signs: Last Vital Signs Temp 97.8 F 08/17/23 17:41 Pulse 71 08/17/23 19:00 Resp 22 H 08/17/23 19:00 BP 95/70 08/17/23 17:41 Pulse Ox 98 08/17/23 19:00 O2 Del Method Mechanical Ventilation 08/16/23 18:00 FiO2 33 08/17/23 19:00 Neurological:: awake Speech:: nods head and appropriate (Sometimes) Answers questions:: sometimes Respiratory:: lungs clear Cardiovascular: RRR Abdomen: soft and nontender Decubitus:: none Tracheostomy:: to ventilator Feeding per:: G tube Complaints:: none ASSESSMENT & PLAN Assessment: Patient with cognitive function sara. ventilator dependent. No distress. Stable condition. Diagnosis and treatment reviewed. Pt does not tolerate weaning from Ventilator. Family updated in IDT Plan: Current treatment continued
[2023-08-18] VITALS (11 sets, daily range): BP systolic 100–120; BP diastolic 61–76; PULSE 61–102; RESP 20–29; TEMP 36–36.3; O2SAT 96–100
[2023-08-18] MEDS: IPRATROPIUM/ALBUTEROL 3 ML AMPUL.NEB INH ×4 (00:45→18:49)
[2023-08-18] MEDS: LEVOTHYROXINE 50 MCG TABLET GT (05:28)
[2023-08-18] MEDS: LACTULOSE 10 GM/15 ML SOLUTION GT ×3 (05:28→21:49)
[2023-08-18] MEDS: acetaZOLAMIDE 250 MG TABLET GT ×2 (09:11→21:47)
[2023-08-18] MEDS: BUMETANIDE 1 MG TABLET GT ×2 (09:12→21:47)
[2023-08-18] MEDS: FERROUS SULFATE 220 MG/5 ML ELIXIR 330 MG GT (09:13)
[2023-08-18] MEDS: FAMOTIDINE 20 MG TABLET GT (09:13)
[2023-08-18] MEDS: levETIRAcetam 750 MG TABLET GT ×2 (09:14→21:48)
[2023-08-18] MEDS: VALPROIC ACID 250 MG/5 ML 1000 MG GT (09:14)
[2023-08-18] MEDS: MULTIVITAMIN 1 TAB TABLET GT (09:14)
[2023-08-18] MEDS: POTASSIUM CHLORIDE 20 MEQ TAB.ER.PRT GT ×2 (09:14→21:49)
--- NOTE | 2023-08-18 16:13 | CHAP ---
1:30 PM Visited by spiritual care volunteer Provided prayer for Patient.
[2023-08-19] VITALS (11 sets, daily range): BP systolic 100–113; BP diastolic 58–72; PULSE 51–86; RESP 20–26; TEMP 36.2–36.6; O2SAT 96–100
[2023-08-19] MEDS: IPRATROPIUM/ALBUTEROL 3 ML AMPUL.NEB INH ×4 (02:23→19:27)
[2023-08-19] MEDS: LACTULOSE 10 GM/15 ML SOLUTION GT ×3 (05:22→21:17)
[2023-08-19] MEDS: LEVOTHYROXINE 50 MCG TABLET GT (05:22)
[2023-08-19] MEDS: FERROUS SULFATE 220 MG/5 ML ELIXIR 330 MG GT (09:47)
[2023-08-19] MEDS: MULTIVITAMIN 1 TAB TABLET GT (09:47)
[2023-08-19] MEDS: FAMOTIDINE 20 MG TABLET GT (09:47)
[2023-08-19] MEDS: POTASSIUM CHLORIDE 20 MEQ TAB.ER.PRT GT ×2 (09:47→21:17)
[2023-08-19] MEDS: acetaZOLAMIDE 250 MG TABLET GT ×2 (09:47→21:12)
[2023-08-19] MEDS: CARVEDILOL 3.125 MG TABLET GT ×2 (09:47→21:17)
[2023-08-19] MEDS: levETIRAcetam 750 MG TABLET GT ×2 (09:47→21:17)
[2023-08-19] MEDS: BUMETANIDE 1 MG TABLET GT ×2 (09:47→21:16)
[2023-08-19] MEDS: VALPROIC ACID 250 MG/5 ML 1000 MG GT (09:48)
--- NOTE | 2023-08-19 13:26 | CHAP ---
11:00 AM Visited by spiritual care volunteer Provided prayer for Patient.
[2023-08-20] VITALS (12 sets, daily range): BP systolic 98–120; BP diastolic 56–79; PULSE 60–83; RESP 20–24; TEMP 36.1–36.3; O2SAT 98–100
[2023-08-20] MEDS: IPRATROPIUM/ALBUTEROL 3 ML AMPUL.NEB INH ×4 (00:54→18:00)
[2023-08-20] MEDS: LACTULOSE 10 GM/15 ML SOLUTION GT ×3 (05:20→21:10)
[2023-08-20] MEDS: LEVOTHYROXINE 50 MCG TABLET GT (05:20)
[2023-08-20] MEDS: acetaZOLAMIDE 250 MG TABLET GT ×2 (08:44→20:49)
[2023-08-20] MEDS: BUMETANIDE 1 MG TABLET GT ×2 (08:45→20:49)
[2023-08-20] MEDS: POTASSIUM CHLORIDE 20 MEQ TAB.ER.PRT GT ×2 (08:46→20:51)
[2023-08-20] MEDS: levETIRAcetam 750 MG TABLET GT ×2 (08:46→20:50)
[2023-08-20] MEDS: FAMOTIDINE 20 MG TABLET GT (08:46)
[2023-08-20] MEDS: VALPROIC ACID 250 MG/5 ML 1000 MG GT (08:47)
[2023-08-20] MEDS: MULTIVITAMIN 1 TAB TABLET GT (08:48)
[2023-08-20] MEDS: FERROUS SULFATE 220 MG/5 ML ELIXIR 330 MG GT (08:48)
[2023-08-21] VITALS (11 sets, daily range): BP systolic 98–117; BP diastolic 60–69; PULSE 64–84; RESP 20–26; TEMP 36.2–36.6; O2SAT 96–99
[2023-08-21] MEDS: IPRATROPIUM/ALBUTEROL 3 ML AMPUL.NEB INH ×4 (00:10→18:22)
[2023-08-21] MEDS: LACTULOSE 10 GM/15 ML SOLUTION GT ×3 (05:11→21:23)
[2023-08-21] MEDS: LEVOTHYROXINE 50 MCG TABLET GT (05:11)
[2023-08-21] MEDS: acetaZOLAMIDE 250 MG TABLET GT ×2 (08:31→20:35)
[2023-08-21] MEDS: BUMETANIDE 1 MG TABLET GT ×2 (08:31→20:35)
[2023-08-21] MEDS: FAMOTIDINE 20 MG TABLET GT (08:33)
[2023-08-21] MEDS: MULTIVITAMIN 1 TAB TABLET GT (08:34)
[2023-08-21] MEDS: levETIRAcetam 750 MG TABLET GT ×2 (08:34→20:36)
[2023-08-21] MEDS: FERROUS SULFATE 220 MG/5 ML ELIXIR 330 MG GT (08:34)
[2023-08-21] MEDS: POTASSIUM CHLORIDE 20 MEQ TAB.ER.PRT GT ×2 (08:34→20:36)
[2023-08-21] MEDS: VALPROIC ACID 250 MG/5 ML 1000 MG GT (08:35)
--- NOTE | 2023-08-21 17:06 | PD.SAPROG ---
Progress Note - SubAcute DIAGNOSIS (1) Chronic respiratory failure with hypoxia: Status: Chronic (2) Dependent on ventilator: Status: Chronic (3) Congestive cardiac failure: Status: Chronic (4) Epilepsy, unspecified, intractable, without status epilepticus: Status: Chronic (5) Anemia: Status: Chronic (6) Hypothyroidism, unspecified: Status: Chronic (7) Developmental disorder of scholastic skills, unspecified: Status: Chronic (8) Age-related osteoporosis without current pathological fracture: Status: Chronic (9) Gastrostomy status: Status: Chronic (10) Tracheostomy status: Status: Chronic SUBJECTIVE Fever:: none GI:: none Shortness of Breath:: none GI:: no complaints Pain:: none OBJECTIVE Most recent vital signs: Last Vital Signs Temp 97.2 F 08/21/23 11:49 Pulse 66 08/21/23 12:40 Resp 22 H 08/21/23 12:40 BP 117/69 08/21/23 11:49 Pulse Ox 98 08/21/23 12:40 O2 Del Method Mechanical Ventilation 08/20/23 23:40 FiO2 33 08/21/23 12:40 Neurological:: awake Speech:: nods head and appropriate (Sometimes) Answers questions:: sometimes Respiratory:: lungs clear Cardiovascular: RRR Abdomen: soft and nontender Decubitus:: none Tracheostomy:: to ventilator Feeding per:: G tube Complaints:: none ASSESSMENT & PLAN Assessment: Patient with cognitive function sara. ventilator dependent. No distress. Stable condition. Diagnosis and treatment reviewed. Pt does not tolerate weaning from Ventilator. Family updated in IDT Plan: Current treatment continued
[2023-08-21] MEDS: guaiFENesin Liq 100 MG/5 ML LIQUID 300 MG GT (20:36)
[2023-08-22] VITALS (10 sets, daily range): BP systolic 90–110; BP diastolic 60–73; PULSE 57–81; RESP 20–25; TEMP 36.2–36.6; O2SAT 97–99
[2023-08-22] MEDS: LEVOTHYROXINE 50 MCG TABLET GT (05:05)
[2023-08-22] MEDS: LACTULOSE 10 GM/15 ML SOLUTION GT ×3 (05:05→21:17)
[2023-08-22] MEDS: IPRATROPIUM/ALBUTEROL 3 ML AMPUL.NEB INH ×3 (06:29→19:13)
[2023-08-22] MEDS: FAMOTIDINE 20 MG TABLET GT (09:00)
[2023-08-22] MEDS: acetaZOLAMIDE 250 MG TABLET GT ×2 (09:00→21:16)
[2023-08-22] MEDS: MULTIVITAMIN 1 TAB TABLET GT (09:00)
[2023-08-22] MEDS: FERROUS SULFATE 220 MG/5 ML ELIXIR 330 MG GT (09:00)
[2023-08-22] MEDS: BUMETANIDE 1 MG TABLET GT ×2 (09:00→21:16)
[2023-08-22] MEDS: VALPROIC ACID 250 MG/5 ML 1000 MG GT (09:00)
[2023-08-22] MEDS: POTASSIUM CHLORIDE 20 MEQ TAB.ER.PRT GT ×2 (09:00→21:17)
[2023-08-22] MEDS: levETIRAcetam 750 MG TABLET GT ×2 (09:00→21:17)
[2023-08-23] VITALS (8 sets, daily range): BP systolic 99–147; BP diastolic 61–75; PULSE 64–82; RESP 18–25; TEMP 36.1–36.4; O2SAT 95–100
[2023-08-23] MEDS: LEVOTHYROXINE 50 MCG TABLET GT (05:26)
[2023-08-23] MEDS: LACTULOSE 10 GM/15 ML SOLUTION GT ×3 (05:26→21:28)
[2023-08-23] MEDS: IPRATROPIUM/ALBUTEROL 3 ML AMPUL.NEB INH ×4 (05:55→18:15)
[2023-08-23] MEDS: BUMETANIDE 1 MG TABLET GT ×2 (08:38→21:27)
[2023-08-23] MEDS: acetaZOLAMIDE 250 MG TABLET GT ×2 (08:38→21:27)
[2023-08-23] MEDS: FAMOTIDINE 20 MG TABLET GT (08:39)
[2023-08-23] MEDS: FERROUS SULFATE 220 MG/5 ML ELIXIR 330 MG GT (08:39)
[2023-08-23] MEDS: MULTIVITAMIN 1 TAB TABLET GT (08:40)
[2023-08-23] MEDS: levETIRAcetam 750 MG TABLET GT ×2 (08:40→21:28)
[2023-08-23] MEDS: POTASSIUM CHLORIDE 20 MEQ TAB.ER.PRT GT ×2 (08:41→21:28)
[2023-08-23] MEDS: VALPROIC ACID 250 MG/5 ML 1000 MG GT (08:42)
--- NOTE | 2023-08-23 14:46 | CHAP ---
1:30 PM Visited by spiritual care volunteer Provided prayer for Patient.
[2023-08-24] VITALS (12 sets, daily range): BP systolic 105–115; BP diastolic 62–79; PULSE 60–107; RESP 14–27; TEMP 36.1–36.8; O2SAT 98–100
[2023-08-24] MEDS: IPRATROPIUM/ALBUTEROL 3 ML AMPUL.NEB INH ×4 (00:10→19:17)
[2023-08-24] MEDS: LACTULOSE 10 GM/15 ML SOLUTION GT ×3 (05:50→21:39)
[2023-08-24] MEDS: LEVOTHYROXINE 50 MCG TABLET GT (05:51)
[2023-08-24] MEDS: FERROUS SULFATE 220 MG/5 ML ELIXIR 330 MG GT (09:00)
[2023-08-24] MEDS: CARVEDILOL 3.125 MG TABLET GT ×2 (09:00→20:31)
[2023-08-24] MEDS: BUMETANIDE 1 MG TABLET GT ×2 (09:00→20:31)
[2023-08-24] MEDS: VALPROIC ACID 250 MG/5 ML 1000 MG GT (09:00)
[2023-08-24] MEDS: MULTIVITAMIN 1 TAB TABLET GT (09:00)
[2023-08-24] MEDS: FAMOTIDINE 20 MG TABLET GT (09:00)
[2023-08-24] MEDS: levETIRAcetam 750 MG TABLET GT ×2 (09:00→20:31)
[2023-08-24] MEDS: acetaZOLAMIDE 250 MG TABLET GT ×2 (09:00→20:31)
[2023-08-24] MEDS: POTASSIUM CHLORIDE 20 MEQ TAB.ER.PRT GT ×2 (09:00→20:32)
[2023-08-24] MEDS: SILVER NITRATE APPLICATOR 1 EACH STICK..EA. TOP (12:15)
--- NOTE | 2023-08-24 14:01 | CHAP ---
11:00 AM Visited by spiritual care volunteer Provided prayer for Patient.
[2023-08-24] MEDS: ACETAMINOPHEN 325 MG TABLET 650 MG GT (20:30)
[2023-08-24] MEDS: LOSARTAN 25 MG TABLET GT (20:32)
[2023-08-25] VITALS (11 sets, daily range): BP systolic 95–104; BP diastolic 53–66; PULSE 64–80; RESP 20–23; TEMP 36–36.6; O2SAT 97–100
[2023-08-25] MEDS: IPRATROPIUM/ALBUTEROL 3 ML AMPUL.NEB INH ×4 (01:04→19:44)
[2023-08-25] MEDS: LACTULOSE 10 GM/15 ML SOLUTION GT ×2 (05:03→21:33)
[2023-08-25] MEDS: LEVOTHYROXINE 50 MCG TABLET GT (05:03)
[2023-08-25] MEDS: acetaZOLAMIDE 250 MG TABLET GT ×2 (08:27→20:45)
[2023-08-25] MEDS: BUMETANIDE 1 MG TABLET GT ×2 (08:27→20:45)
[2023-08-25] MEDS: FAMOTIDINE 20 MG TABLET GT (08:28)
[2023-08-25] MEDS: FERROUS SULFATE 220 MG/5 ML ELIXIR 330 MG GT (08:28)
[2023-08-25] MEDS: levETIRAcetam 750 MG TABLET GT ×2 (08:28→20:46)
[2023-08-25] MEDS: MULTIVITAMIN 1 TAB TABLET GT (08:29)
[2023-08-25] MEDS: POTASSIUM CHLORIDE 20 MEQ TAB.ER.PRT GT ×2 (08:29→20:46)
[2023-08-25] MEDS: VALPROIC ACID 250 MG/5 ML 1000 MG GT (08:30)
--- NOTE | 2023-08-25 15:42 | PC.CWCCOMPLE ---
Laser Print Operator Pharmacist monthly MRR
--- NOTE | 2023-08-25 23:22 | PD.SAPROG ---
Progress Note - SubAcute DIAGNOSIS (1) Chronic respiratory failure with hypoxia: Status: Chronic (2) Dependent on ventilator: Status: Chronic (3) Congestive cardiac failure: Status: Chronic (4) Epilepsy, unspecified, intractable, without status epilepticus: Status: Chronic (5) Anemia: Status: Chronic (6) Hypothyroidism, unspecified: Status: Chronic (7) Developmental disorder of scholastic skills, unspecified: Status: Chronic (8) Age-related osteoporosis without current pathological fracture: Status: Chronic (9) Gastrostomy status: Status: Chronic (10) Tracheostomy status: Status: Chronic SUBJECTIVE Fever:: none GI:: none Shortness of Breath:: none GI:: no complaints Pain:: none OBJECTIVE Most recent vital signs: Last Vital Signs Temp 97.8 F 08/25/23 17:59 Pulse 80 08/25/23 20:46 Resp 23 H 08/25/23 17:59 BP 100/65 08/25/23 20:46 Pulse Ox 98 08/25/23 17:59 O2 Del Method Mechanical Ventilation 08/25/23 05:21 FiO2 34 08/25/23 20:55 Neurological:: awake Speech:: nods head and appropriate (Sometimes) Answers questions:: sometimes Respiratory:: lungs clear Cardiovascular: RRR Abdomen: soft and nontender Decubitus:: none Tracheostomy:: to ventilator Feeding per:: G tube Complaints:: none ASSESSMENT & PLAN Assessment: Patient with cognitive function sara. ventilator dependent. No distress. Stable condition. Diagnosis and treatment reviewed. Pt does not tolerate weaning from Ventilator. Family updated in IDT Plan: Current treatment continued
[2023-08-26] VITALS (12 sets, daily range): BP systolic 94–126; BP diastolic 51–69; PULSE 58–83; RESP 20–25; TEMP 35.8–36.2; O2SAT 97–100
[2023-08-26] MEDS: IPRATROPIUM/ALBUTEROL 3 ML AMPUL.NEB INH ×5 (00:12→23:07)
[2023-08-26] MEDS: LEVOTHYROXINE 50 MCG TABLET GT (05:04)
[2023-08-26] MEDS: LACTULOSE 10 GM/15 ML SOLUTION GT ×3 (05:04→22:43)
[2023-08-26] MEDS: CARVEDILOL 3.125 MG TABLET GT (08:33)
[2023-08-26] MEDS: FERROUS SULFATE 220 MG/5 ML ELIXIR 330 MG GT (08:33)
[2023-08-26] MEDS: FAMOTIDINE 20 MG TABLET GT (08:33)
[2023-08-26] MEDS: acetaZOLAMIDE 250 MG TABLET GT ×2 (08:33→20:19)
[2023-08-26] MEDS: BUMETANIDE 1 MG TABLET GT ×2 (08:33→20:19)
[2023-08-26] MEDS: VALPROIC ACID 250 MG/5 ML 1000 MG GT (08:34)
[2023-08-26] MEDS: MULTIVITAMIN 1 TAB TABLET GT (08:34)
[2023-08-26] MEDS: POTASSIUM CHLORIDE 20 MEQ TAB.ER.PRT GT ×2 (08:34→20:21)
[2023-08-26] MEDS: levETIRAcetam 750 MG TABLET GT ×2 (08:34→20:21)
--- NOTE | 2023-08-26 15:05 | CHAP ---
11:00 AM Visited by spiritual care volunteer Provided prayer for Patient.
[2023-08-26] MEDS: guaiFENesin Liq 100 MG/5 ML LIQUID 300 MG GT (19:38)
[2023-08-26] MEDS: ACETAMINOPHEN 325 MG TABLET 650 MG GT (19:38)
[2023-08-27] VITALS (9 sets, daily range): BP systolic 92–108; BP diastolic 51–65; PULSE 68–89; RESP 20–25; TEMP 36–36.3; O2SAT 98–100
[2023-08-27] MEDS: LEVOTHYROXINE 50 MCG TABLET GT (05:06)
[2023-08-27] MEDS: LACTULOSE 10 GM/15 ML SOLUTION GT ×3 (05:06→21:40)
[2023-08-27] MEDS: IPRATROPIUM/ALBUTEROL 3 ML AMPUL.NEB INH ×3 (06:04→19:13)
[2023-08-27] MEDS: acetaZOLAMIDE 250 MG TABLET GT ×2 (09:33→21:39)
[2023-08-27] MEDS: FAMOTIDINE 20 MG TABLET GT (09:37)
[2023-08-27] MEDS: FERROUS SULFATE 220 MG/5 ML ELIXIR 330 MG GT (09:37)
[2023-08-27] MEDS: levETIRAcetam 750 MG TABLET GT ×2 (09:37→21:40)
[2023-08-27] MEDS: POTASSIUM CHLORIDE 20 MEQ TAB.ER.PRT GT ×2 (09:39→21:40)
[2023-08-27] MEDS: MULTIVITAMIN 1 TAB TABLET GT (09:39)
[2023-08-27] MEDS: VALPROIC ACID 250 MG/5 ML 1000 MG GT (09:39)
--- NOTE | 2023-08-27 12:30 | CHAP ---
Patient was visited by the Spiritual Care Volunteer who prayed for them. (Volunteer was in the hospital from 10:00-12:30).
--- NOTE | 2023-08-27 13:57 | PC.NURSE ---
Seen by Dr Lackey, ring worm to left upper chest , no redness and only noted with slight brown discoloration, no new orders made
[2023-08-27] MEDS: BUMETANIDE 1 MG TABLET GT (21:40)
[2023-08-28] VITALS (12 sets, daily range): BP systolic 97–145; BP diastolic 63–83; PULSE 66–93; RESP 20–25; TEMP 36.1–36.2; O2SAT 96–100
[2023-08-28] MEDS: IPRATROPIUM/ALBUTEROL 3 ML AMPUL.NEB INH ×4 (01:03→18:15)
[2023-08-28] MEDS: LEVOTHYROXINE 50 MCG TABLET GT (05:11)
[2023-08-28] MEDS: LACTULOSE 10 GM/15 ML SOLUTION GT ×3 (05:12→22:59)
[2023-08-28] MEDS: acetaZOLAMIDE 250 MG TABLET GT ×2 (08:16→22:54)
[2023-08-28] MEDS: FERROUS SULFATE 220 MG/5 ML ELIXIR 330 MG GT (08:17)
[2023-08-28] MEDS: CARVEDILOL 3.125 MG TABLET GT (08:17)
[2023-08-28] MEDS: BUMETANIDE 1 MG TABLET GT ×2 (08:17→22:54)
[2023-08-28] MEDS: FAMOTIDINE 20 MG TABLET GT (08:17)
[2023-08-28] MEDS: POTASSIUM CHLORIDE 20 MEQ TAB.ER.PRT GT ×2 (08:18→22:57)
[2023-08-28] MEDS: MULTIVITAMIN 1 TAB TABLET GT (08:18)
[2023-08-28] MEDS: VALPROIC ACID 250 MG/5 ML 1000 MG GT (08:18)
[2023-08-28] MEDS: levETIRAcetam 750 MG TABLET GT ×2 (08:18→22:55)
[2023-08-29] VITALS (9 sets, daily range): BP systolic 110–138; BP diastolic 60–83; PULSE 60–86; RESP 18–26; TEMP 36.1–36.3; O2SAT 96–100
[2023-08-29] MEDS: IPRATROPIUM/ALBUTEROL 3 ML AMPUL.NEB INH ×4 (06:00→18:10)
[2023-08-29] MEDS: LACTULOSE 10 GM/15 ML SOLUTION GT ×3 (06:00→21:06)
[2023-08-29] MEDS: LEVOTHYROXINE 50 MCG TABLET GT (06:00)
[2023-08-29] MEDS: BUMETANIDE 1 MG TABLET GT ×2 (09:01→20:49)
[2023-08-29] MEDS: CARVEDILOL 3.125 MG TABLET GT ×2 (09:01→20:49)
[2023-08-29] MEDS: acetaZOLAMIDE 250 MG TABLET GT ×2 (09:01→20:49)
[2023-08-29] MEDS: levETIRAcetam 750 MG TABLET GT ×2 (09:02→20:49)
[2023-08-29] MEDS: MULTIVITAMIN 1 TAB TABLET GT (09:02)
[2023-08-29] MEDS: POTASSIUM CHLORIDE 20 MEQ TAB.ER.PRT GT ×2 (09:02→20:49)
[2023-08-29] MEDS: VALPROIC ACID 250 MG/5 ML 1000 MG GT (09:02)
[2023-08-29] MEDS: FAMOTIDINE 20 MG TABLET GT (09:02)
[2023-08-29] MEDS: FERROUS SULFATE 220 MG/5 ML ELIXIR 330 MG GT (09:02)
[2023-08-30] VITALS (12 sets, daily range): BP systolic 105–128; BP diastolic 62–74; PULSE 71–96; RESP 20–25; TEMP 36.2–36.3; O2SAT 97–100
[2023-08-30] MEDS: IPRATROPIUM/ALBUTEROL 3 ML AMPUL.NEB INH ×4 (00:20→19:15)
[2023-08-30] MEDS: LEVOTHYROXINE 50 MCG TABLET GT (05:05)
[2023-08-30] MEDS: BUMETANIDE 1 MG TABLET GT ×2 (08:11→20:51)
[2023-08-30] MEDS: acetaZOLAMIDE 250 MG TABLET GT ×2 (08:11→20:50)
[2023-08-30] MEDS: FAMOTIDINE 20 MG TABLET GT (08:12)
[2023-08-30] MEDS: FERROUS SULFATE 220 MG/5 ML ELIXIR 330 MG GT (08:12)
[2023-08-30] MEDS: CARVEDILOL 3.125 MG TABLET GT ×2 (08:12→20:51)
[2023-08-30] MEDS: POTASSIUM CHLORIDE 20 MEQ TAB.ER.PRT GT ×2 (08:13→20:53)
[2023-08-30] MEDS: MULTIVITAMIN 1 TAB TABLET GT (08:13)
[2023-08-30] MEDS: levETIRAcetam 750 MG TABLET GT ×2 (08:13→20:52)
[2023-08-30] MEDS: VALPROIC ACID 250 MG/5 ML 1000 MG GT (08:13)
[2023-08-30] MEDS: ACETAMINOPHEN 325 MG TABLET 650 MG GT (14:49)
[2023-08-30] MEDS: guaiFENesin Liq 100 MG/5 ML LIQUID 300 MG GT (15:57)
[2023-08-30] MEDS: LOSARTAN 25 MG TABLET GT (20:52)
[2023-08-30] MEDS: LACTULOSE 10 GM/15 ML SOLUTION GT (20:55)
--- NOTE | 2023-08-30 22:09 | PD.SAPROG ---
Progress Note - SubAcute DIAGNOSIS (1) Chronic respiratory failure with hypoxia: Status: Chronic (2) Dependent on ventilator: Status: Chronic (3) Congestive cardiac failure: Status: Chronic (4) Epilepsy, unspecified, intractable, without status epilepticus: Status: Chronic (5) Anemia: Status: Chronic (6) Hypothyroidism, unspecified: Status: Chronic (7) Developmental disorder of scholastic skills, unspecified: Status: Chronic (8) Age-related osteoporosis without current pathological fracture: Status: Chronic (9) Gastrostomy status: Status: Chronic (10) Tracheostomy status: Status: Chronic SUBJECTIVE Fever:: none GI:: none Shortness of Breath:: none GI:: no complaints Pain:: none OBJECTIVE Most recent vital signs: Last Vital Signs Temp 97.1 F 08/30/23 17:12 Pulse 74 08/30/23 20:52 Resp 20 08/30/23 19:15 BP 118/62 08/30/23 20:52 Pulse Ox 100 08/30/23 19:15 O2 Del Method Mechanical Ventilation 08/27/23 05:41 FiO2 36 08/30/23 19:15 Neurological:: awake Speech:: nods head and appropriate (Sometimes) Answers questions:: sometimes Respiratory:: lungs clear Cardiovascular: RRR Abdomen: soft and nontender Decubitus:: none Tracheostomy:: to ventilator Feeding per:: G tube Complaints:: none ASSESSMENT & PLAN Assessment: Patient with cognitive function sara. ventilator dependent. No distress. Stable condition. Diagnosis and treatment reviewed. Pt does not tolerate weaning from Ventilator. Family updated in IDT Plan: Current treatment continued
[2023-08-31] VITALS (12 sets, daily range): BP systolic 91–127; BP diastolic 51–76; PULSE 67–100; RESP 20–28; TEMP 36.1–36.6; O2SAT 98–100
[2023-08-31] MEDS: LEVOTHYROXINE 50 MCG TABLET GT (05:13)
[2023-08-31] MEDS: LACTULOSE 10 GM/15 ML SOLUTION GT ×2 (05:13→14:03)
[2023-08-31] MEDS: IPRATROPIUM/ALBUTEROL 3 ML AMPUL.NEB INH ×3 (06:00→18:15)
[2023-08-31] MEDS: acetaZOLAMIDE 250 MG TABLET GT ×2 (08:39→20:45)
[2023-08-31] MEDS: BUMETANIDE 1 MG TABLET GT ×2 (08:39→20:45)
[2023-08-31] MEDS: FAMOTIDINE 20 MG TABLET GT (08:40)
[2023-08-31] MEDS: CARVEDILOL 3.125 MG TABLET GT (08:40)
[2023-08-31] MEDS: FERROUS SULFATE 220 MG/5 ML ELIXIR 330 MG GT (08:41)
[2023-08-31] MEDS: levETIRAcetam 750 MG TABLET GT ×2 (08:42→20:45)
[2023-08-31] MEDS: VALPROIC ACID 250 MG/5 ML 1000 MG GT (08:42)
[2023-08-31] MEDS: POTASSIUM CHLORIDE 20 MEQ TAB.ER.PRT GT ×2 (08:42→20:45)
[2023-08-31] MEDS: MULTIVITAMIN 1 TAB TABLET GT (08:42)
[2023-08-31] MEDS: SILVER NITRATE APPLICATOR 1 EACH STICK..EA. TOP (10:30)
[2023-09-01] VITALS (9 sets, daily range): BP systolic 100–144; BP diastolic 64–78; PULSE 68–89; RESP 20–25; TEMP 36.2–36.7; O2SAT 97–100
[2023-09-01] MEDS: IPRATROPIUM/ALBUTEROL 3 ML AMPUL.NEB INH ×4 (00:40→17:09)
[2023-09-01] MEDS: LEVOTHYROXINE 50 MCG TABLET GT (05:24)
[2023-09-01] MEDS: LACTULOSE 10 GM/15 ML SOLUTION GT ×3 (05:24→22:00)
[2023-09-01] MEDS: acetaZOLAMIDE 250 MG TABLET GT ×2 (08:51→21:00)
[2023-09-01] MEDS: CARVEDILOL 3.125 MG TABLET GT ×2 (08:52→21:00)
[2023-09-01] MEDS: BUMETANIDE 1 MG TABLET GT ×2 (08:52→21:00)
[2023-09-01] MEDS: FAMOTIDINE 20 MG TABLET GT (08:52)
[2023-09-01] MEDS: MULTIVITAMIN 1 TAB TABLET GT (08:53)
[2023-09-01] MEDS: levETIRAcetam 750 MG TABLET GT ×2 (08:53→21:00)
[2023-09-01] MEDS: FERROUS SULFATE 220 MG/5 ML ELIXIR 330 MG GT (08:53)
[2023-09-01] MEDS: POTASSIUM CHLORIDE 20 MEQ TAB.ER.PRT GT ×2 (08:54→21:00)
[2023-09-01] MEDS: VALPROIC ACID 250 MG/5 ML 1000 MG GT (08:54)
--- NOTE | 2023-09-01 12:51 | PC.SS ---
Room change: Resident moved from room 119B to room 105 to be closer to nurses station, resident and RP Jeremi Javier notified of room change. Resident is seen laying in bed appears comfortable with no signs of distress. This SSD will follow up with resident and monitor him for any changes in mood or behavior.
[2023-09-01] MEDS: LOSARTAN 25 MG TABLET GT (21:00)
[2023-09-02] VITALS (12 sets, daily range): BP systolic 90–110; BP diastolic 51–69; PULSE 62–99; RESP 15–25; TEMP 36.1–36.3; O2SAT 96–100
[2023-09-02] MEDS: IPRATROPIUM/ALBUTEROL 3 ML AMPUL.NEB INH ×4 (00:29→19:33)
[2023-09-02] MEDS: LEVOTHYROXINE 50 MCG TABLET GT (05:37)
[2023-09-02] MEDS: BUMETANIDE 1 MG TABLET GT ×2 (09:10→20:31)
[2023-09-02] MEDS: acetaZOLAMIDE 250 MG TABLET GT ×2 (09:10→20:31)
[2023-09-02] MEDS: FAMOTIDINE 20 MG TABLET GT (09:11)
[2023-09-02] MEDS: VALPROIC ACID 250 MG/5 ML 1000 MG GT (09:12)
[2023-09-02] MEDS: POTASSIUM CHLORIDE 20 MEQ TAB.ER.PRT GT ×2 (09:12→20:32)
[2023-09-02] MEDS: FERROUS SULFATE 220 MG/5 ML ELIXIR 330 MG GT (09:12)
[2023-09-02] MEDS: MULTIVITAMIN 1 TAB TABLET GT (09:12)
[2023-09-02] MEDS: levETIRAcetam 750 MG TABLET GT ×2 (09:12→20:32)
[2023-09-02] MEDS: LACTULOSE 10 GM/15 ML SOLUTION GT ×2 (13:29→22:00)
[2023-09-02] MEDS: CARVEDILOL 3.125 MG TABLET GT (20:32)
[2023-09-03] VITALS (11 sets, daily range): BP systolic 91–107; BP diastolic 55–73; PULSE 70–97; RESP 20–23; TEMP 36.2–36.6; O2SAT 98–100
[2023-09-03] MEDS: IPRATROPIUM/ALBUTEROL 3 ML AMPUL.NEB INH ×4 (01:09→19:01)
[2023-09-03] MEDS: LEVOTHYROXINE 50 MCG TABLET GT (05:56)
[2023-09-03] MEDS: acetaZOLAMIDE 250 MG TABLET GT ×2 (08:35→20:40)
[2023-09-03] MEDS: BUMETANIDE 1 MG TABLET GT ×2 (08:35→20:40)
[2023-09-03] MEDS: levETIRAcetam 750 MG TABLET GT ×2 (08:36→20:41)
[2023-09-03] MEDS: FERROUS SULFATE 220 MG/5 ML ELIXIR 330 MG GT (08:36)
[2023-09-03] MEDS: FAMOTIDINE 20 MG TABLET GT (08:36)
[2023-09-03] MEDS: MULTIVITAMIN 1 TAB TABLET GT (08:36)
[2023-09-03] MEDS: POTASSIUM CHLORIDE 20 MEQ TAB.ER.PRT GT ×2 (08:38→20:41)
[2023-09-03] MEDS: VALPROIC ACID 250 MG/5 ML 1000 MG GT (08:39)
--- NOTE | 2023-09-03 10:08 | PD.SAPROG ---
Progress Note - SubAcute DIAGNOSIS (1) Chronic respiratory failure with hypoxia: Status: Chronic (2) Dependent on ventilator: Status: Chronic (3) Congestive cardiac failure: Status: Chronic (4) Epilepsy, unspecified, intractable, without status epilepticus: Status: Chronic (5) Anemia: Status: Chronic (6) Hypothyroidism, unspecified: Status: Chronic (7) Developmental disorder of scholastic skills, unspecified: Status: Chronic (8) Age-related osteoporosis without current pathological fracture: Status: Chronic (9) Gastrostomy status: Status: Chronic (10) Tracheostomy status: Status: Chronic SUBJECTIVE Fever:: none GI:: none Shortness of Breath:: none GI:: no complaints Pain:: none OBJECTIVE Most recent vital signs: Last Vital Signs Temp 97.8 F 09/03/23 06:00 Pulse 88 09/03/23 08:36 Resp 22 H 09/03/23 06:02 BP 101/63 09/03/23 08:36 Pulse Ox 99 09/03/23 06:02 O2 Del Method Mechanical Ventilation 09/03/23 06:00 FiO2 31 09/03/23 06:02 Neurological:: awake Speech:: nods head and appropriate (Sometimes) Answers questions:: sometimes Respiratory:: lungs clear Cardiovascular: RRR Abdomen: soft and nontender Decubitus:: none Tracheostomy:: to ventilator Feeding per:: G tube Complaints:: none ASSESSMENT & PLAN Assessment: Patient with cognitive function deficits. ventilator dependent. No distress. Stable condition. Diagnosis and treatment reviewed. Pt does not tolerate weaning from Ventilator. Family updated in IDT. Pt.'s father is very supportive. Plan: Current treatment continued
[2023-09-03] MEDS: LACTULOSE 10 GM/15 ML SOLUTION GT ×2 (13:21→21:25)
--- NOTE | 2023-09-03 15:23 | PC.SS ---
Room visit: Resident is laying in bed with head of the bed elevated with call light properly placed with no signs of distress. Resident is well groomed, with call light in place. Resident will remain in current care as there are no changes in care or condition, staff to continue to meet all subacute care needs. Resident remains on ventilator with trach in place and GT for nutrition and medications. SSD to make daily contact with resident and monitor for any changes in mood or behavior.
[2023-09-04] VITALS (11 sets, daily range): BP systolic 100–119; BP diastolic 63–74; PULSE 70–84; RESP 20–24; TEMP 36.3–36.8; O2SAT 97–100
[2023-09-04] MEDS: IPRATROPIUM/ALBUTEROL 3 ML AMPUL.NEB INH ×4 (01:00→19:50)
[2023-09-04] MEDS: LEVOTHYROXINE 50 MCG TABLET GT (05:13)
[2023-09-04] MEDS: LACTULOSE 10 GM/15 ML SOLUTION GT ×3 (05:13→21:18)
[2023-09-04] MEDS: acetaZOLAMIDE 250 MG TABLET GT ×2 (09:38→20:37)
[2023-09-04] MEDS: FERROUS SULFATE 220 MG/5 ML ELIXIR 330 MG GT (09:39)
[2023-09-04] MEDS: MULTIVITAMIN 1 TAB TABLET GT (09:39)
[2023-09-04] MEDS: CARVEDILOL 3.125 MG TABLET GT ×2 (09:39→20:38)
[2023-09-04] MEDS: levETIRAcetam 750 MG TABLET GT ×2 (09:39→20:38)
[2023-09-04] MEDS: FAMOTIDINE 20 MG TABLET GT (09:39)
[2023-09-04] MEDS: BUMETANIDE 1 MG TABLET GT ×2 (09:39→20:37)
[2023-09-04] MEDS: POTASSIUM CHLORIDE 20 MEQ TAB.ER.PRT GT ×2 (09:40→20:38)
[2023-09-04] MEDS: VALPROIC ACID 250 MG/5 ML 1000 MG GT (09:40)
[2023-09-04] MEDS: ACETAMINOPHEN 325 MG TABLET 650 MG GT (09:41)
[2023-09-04] MEDS: guaiFENesin Liq 100 MG/5 ML LIQUID 300 MG GT (09:41)
[2023-09-05] VITALS (13 sets, daily range): BP systolic 97–124; BP diastolic 60–78; PULSE 70–81; RESP 20–24; TEMP 36.4–36.6; O2SAT 97–100
[2023-09-05] MEDS: IPRATROPIUM/ALBUTEROL 3 ML AMPUL.NEB INH ×4 (01:13→18:45)
[2023-09-05] MEDS: LACTULOSE 10 GM/15 ML SOLUTION GT ×3 (05:15→21:51)
[2023-09-05] MEDS: LEVOTHYROXINE 50 MCG TABLET GT (05:15)
[2023-09-05] MEDS: BUMETANIDE 1 MG TABLET GT ×2 (09:00→21:54)
[2023-09-05] MEDS: VALPROIC ACID 250 MG/5 ML 1000 MG GT (09:00)
[2023-09-05] MEDS: acetaZOLAMIDE 250 MG TABLET GT ×2 (09:00→21:55)
[2023-09-05] MEDS: FERROUS SULFATE 220 MG/5 ML ELIXIR 330 MG GT (09:00)
[2023-09-05] MEDS: FAMOTIDINE 20 MG TABLET GT (09:00)
[2023-09-05] MEDS: MULTIVITAMIN 1 TAB TABLET GT (09:00)
[2023-09-05] MEDS: levETIRAcetam 750 MG TABLET GT ×2 (09:00→21:56)
[2023-09-05] MEDS: POTASSIUM CHLORIDE 20 MEQ TAB.ER.PRT GT ×2 (09:00→21:59)
[2023-09-05] MEDS: CARVEDILOL 3.125 MG TABLET GT (21:55)
[2023-09-05] MEDS: LOSARTAN 25 MG TABLET GT (21:56)
[2023-09-06] VITALS (10 sets, daily range): BP systolic 100–116; BP diastolic 61–76; PULSE 72–89; RESP 20–25; TEMP 36.4–36.6; O2SAT 96–100
[2023-09-06] MEDS: LACTULOSE 10 GM/15 ML SOLUTION GT ×3 (05:25→21:49)
[2023-09-06] MEDS: LEVOTHYROXINE 50 MCG TABLET GT (05:32)
[2023-09-06] MEDS: IPRATROPIUM/ALBUTEROL 3 ML AMPUL.NEB INH ×4 (06:11→19:45)
[2023-09-06] MEDS: acetaZOLAMIDE 250 MG TABLET GT ×2 (08:44→20:16)
[2023-09-06] MEDS: BUMETANIDE 1 MG TABLET GT ×2 (08:45→20:16)
[2023-09-06] MEDS: levETIRAcetam 750 MG TABLET GT ×2 (08:46→20:17)
[2023-09-06] MEDS: POTASSIUM CHLORIDE 20 MEQ TAB.ER.PRT GT ×2 (08:46→20:17)
[2023-09-06] MEDS: FAMOTIDINE 20 MG TABLET GT (08:46)
[2023-09-06] MEDS: VALPROIC ACID 250 MG/5 ML 1000 MG GT (08:47)
[2023-09-06] MEDS: MULTIVITAMIN 1 TAB TABLET GT (08:47)
[2023-09-06] MEDS: FERROUS SULFATE 220 MG/5 ML ELIXIR 330 MG GT (08:48)
[2023-09-06] MEDS: ACETAMINOPHEN 325 MG TABLET 650 MG GT (20:15)
[2023-09-07] VITALS (13 sets, daily range): BP systolic 96–113; BP diastolic 55–86; PULSE 52–91; RESP 18–25; TEMP 36.2–36.4; O2SAT 98–100
[2023-09-07] MEDS: IPRATROPIUM/ALBUTEROL 3 ML AMPUL.NEB INH ×3 (01:15→18:20)
[2023-09-07] MEDS: LEVOTHYROXINE 50 MCG TABLET GT (05:23)
[2023-09-07] MEDS: LACTULOSE 10 GM/15 ML SOLUTION GT ×3 (05:23→21:30)
[2023-09-07] MEDS: BUMETANIDE 1 MG TABLET GT ×2 (08:23→20:22)
[2023-09-07] MEDS: FAMOTIDINE 20 MG TABLET GT (08:24)
[2023-09-07] MEDS: levETIRAcetam 750 MG TABLET GT ×2 (08:24→20:24)
[2023-09-07] MEDS: POTASSIUM CHLORIDE 20 MEQ TAB.ER.PRT GT ×2 (08:24→20:24)
[2023-09-07] MEDS: acetaZOLAMIDE 250 MG TABLET GT ×2 (08:24→20:21)
[2023-09-07] MEDS: MULTIVITAMIN 1 TAB TABLET GT (08:25)
[2023-09-07] MEDS: FERROUS SULFATE 220 MG/5 ML ELIXIR 330 MG GT (08:25)
[2023-09-07] MEDS: VALPROIC ACID 250 MG/5 ML 1000 MG GT (08:26)
[2023-09-07] MEDS: SILVER NITRATE APPLICATOR 1 EACH STICK..EA. TOP (09:30)
--- NOTE | 2023-09-07 22:28 | PD.SAPROG ---
Progress Note - SubAcute DIAGNOSIS (1) Chronic respiratory failure with hypoxia: Status: Chronic (2) Dependent on ventilator: Status: Chronic (3) Congestive cardiac failure: Status: Chronic (4) Epilepsy, unspecified, intractable, without status epilepticus: Status: Chronic (5) Anemia: Status: Chronic (6) Hypothyroidism, unspecified: Status: Chronic (7) Developmental disorder of scholastic skills, unspecified: Status: Chronic (8) Age-related osteoporosis without current pathological fracture: Status: Chronic (9) Gastrostomy status: Status: Chronic (10) Tracheostomy status: Status: Chronic SUBJECTIVE Fever:: none GI:: none Shortness of Breath:: none GI:: no complaints Pain:: none OBJECTIVE Most recent vital signs: Last Vital Signs Temp 97.1 F 09/07/23 17:38 Pulse 86 09/07/23 20:24 Resp 23 H 09/07/23 17:38 BP 102/66 09/07/23 20:24 Pulse Ox 99 09/07/23 17:38 O2 Del Method Mechanical Ventilation 09/06/23 12:00 FiO2 30 09/07/23 11:04 Neurological:: awake Speech:: nods head and appropriate (Sometimes) Answers questions:: sometimes Respiratory:: lungs clear Cardiovascular: RRR Abdomen: soft and nontender Decubitus:: none Tracheostomy:: to ventilator Feeding per:: G tube Complaints:: none ASSESSMENT & PLAN Assessment: Patient with cognitive function deficits. ventilator dependent. No distress. Stable condition. Diagnosis and treatment reviewed. Pt does not tolerate weaning from Ventilator. Family updated in IDT. Pt.'s father is very supportive. Plan: Current treatment reviewed and continued
[2023-09-08] VITALS (9 sets, daily range): BP systolic 94–111; BP diastolic 61–74; PULSE 56–91; RESP 20–23; TEMP 36.1–36.5; O2SAT 98–100
[2023-09-08] MEDS: IPRATROPIUM/ALBUTEROL 3 ML AMPUL.NEB INH ×4 (01:24→18:00)
[2023-09-08] MEDS: LACTULOSE 10 GM/15 ML SOLUTION GT ×2 (05:30→22:00)
[2023-09-08] MEDS: LEVOTHYROXINE 50 MCG TABLET GT (05:30)
[2023-09-08] MEDS: acetaZOLAMIDE 250 MG TABLET GT ×2 (08:44→20:42)
[2023-09-08] MEDS: BUMETANIDE 1 MG TABLET GT ×2 (08:44→20:50)
[2023-09-08] MEDS: FAMOTIDINE 20 MG TABLET GT (08:45)
[2023-09-08] MEDS: levETIRAcetam 750 MG TABLET GT ×2 (08:46→20:51)
[2023-09-08] MEDS: FERROUS SULFATE 220 MG/5 ML ELIXIR 330 MG GT (08:46)
[2023-09-08] MEDS: VALPROIC ACID 250 MG/5 ML 1000 MG GT (08:47)
[2023-09-08] MEDS: POTASSIUM CHLORIDE 20 MEQ TAB.ER.PRT GT ×2 (08:47→20:51)
[2023-09-08] MEDS: MULTIVITAMIN 1 TAB TABLET GT (08:47)
--- NOTE | 2023-09-08 15:46 | PC.SS ---
Room visit resident is laying in bed with head of the bed elevated with call light properly placed with no signs of distress. Resident is well groomed appears comfortable. Resident remains on ventilator with trach in place, no changes in care or condition. He is conserved by his father Jeremi Javier and is a [facility] client. He will remain in current care, staff will continue to meet all subacute care needs. This SSD to make daily contact with resident and monitor for changes in mood or behavior.
[2023-09-08] MEDS: guaiFENesin Liq 100 MG/5 ML LIQUID 300 MG GT (23:00)
[2023-09-09] VITALS (14 sets, daily range): BP systolic 111–126; BP diastolic 62–76; PULSE 71–99; RESP 20–28; TEMP 36.9–38.8; O2SAT 98–99
[2023-09-09] MEDS: IPRATROPIUM/ALBUTEROL 3 ML AMPUL.NEB INH ×4 (00:58→18:30)
[2023-09-09] MEDS: ACETAMINOPHEN 325 MG TABLET GT (02:30)
[2023-09-09 03:24] LABS: Basophils % (Auto) 0 % (0-2.5); Eosinophils # (Auto) 0.2 Thou/mm3 (0.0-0.5); Eosinophils % (Auto) 1 % (0-10); Hematocrit 39.6 % (41.0-53.0); Hemoglobin 12.6 g/dL (13.5-16.0); Immature Granulocytes % (Auto) 0 % (0-0); Immature Granulocytes Auto 0.09 Thou/mm3 (0.00-0.00); Lymphocytes # (Auto) 1.4 Thou/mm3 (1.0-4.8); Lymphocytes % (Auto) 7 % (10-50); Mean Corpuscular HGB Conc 31.8 g/dl (31.0-37.0); Mean Corpuscular Hemoglobin 30.2 pg (25.0-35.0); Mean Corpuscular Volume 95 fL (80-100); Monocytes # (Auto) 1.2 Thou/mm3 (0.0-0.8); Monocytes % (Auto) 6 % (0-12); Neutrophils # (Auto) 17.6 Thou/mm3 (1.8-7.7); Neutrophils % (Auto) 86 % (37-80); Nucleated Red Blood Cell % 0 /100 WBC (0); Platelet Count 186 Thou/mm3 (140-440); RDW Standard Deviation 46.7 fL (35.1-43.9); Red Blood Count 4.17 Miln/mm3 (4.50-5.90); White Blood Count 20.4 Thou/mm3 (3.8-10.6)
[2023-09-09] MEDS: LACTULOSE 10 GM/15 ML SOLUTION GT ×3 (06:03→22:00)
[2023-09-09] MEDS: LEVOTHYROXINE 50 MCG TABLET GT (06:03)
[2023-09-09] MEDS: acetaZOLAMIDE 250 MG TABLET GT ×2 (09:14→20:36)
[2023-09-09] MEDS: BUMETANIDE 1 MG TABLET GT ×2 (09:14→20:36)
[2023-09-09] MEDS: CARVEDILOL 3.125 MG TABLET GT ×2 (09:14→20:38)
[2023-09-09] MEDS: FAMOTIDINE 20 MG TABLET GT (09:14)
[2023-09-09] MEDS: levETIRAcetam 750 MG TABLET GT ×2 (09:15→20:38)
[2023-09-09] MEDS: POTASSIUM CHLORIDE 20 MEQ TAB.ER.PRT GT ×2 (09:15→20:39)
[2023-09-09] MEDS: FERROUS SULFATE 220 MG/5 ML ELIXIR 330 MG GT (09:15)
[2023-09-09] MEDS: MULTIVITAMIN 1 TAB TABLET GT (09:15)
[2023-09-09] MEDS: VALPROIC ACID 250 MG/5 ML 1000 MG GT (09:16)
[2023-09-09 09:43] LABS: Collection Type, Urine Catheter; Squamous Epithelial Cell,Urine 0 /hpf (0-5)
[2023-09-09 09:50] LABS: Bilirubin,Urine Negative (Negative); Blood,Urine 1+ (Negative); Clarity,Urine Clear (Clear/Hazy); Color,Urine Colorless (Lt Yel-Yel); Glucose, Urine Negative (Negative); Ketones,Urine Negative (Negative); Leukocyte Esterase,Urine Negative (Negative); Nitrite,Urine Negative (Negative); Protein,Urine Negative (Neg - Trace); RBC,Urine 2 /hpf (0-3); Specific Gravity,Urine 1.003 (1.001-1.035); Urobilinogen,Urine Negative mg/dL (0.0-1.0); WBC,Urine 1 /hpf (0-5)
--- NOTE | 2023-09-09 10:37 | PC.NURSE ---
Report received from [facility] that resident had a temp of 101.8 , fever protocol was ordered, WBC 20.4 . Resident awake when received, remains on mechanical ventilator. Respiration even and unlabored. No s/s of respiratory distress noted. No s/s of pain or discomfort. Called Dr Lackey and made aware. No new order received at this time. Monitor resident per MD and if he noted with elevated temp again ,then, notify him.
[2023-09-09 10:49] LABS: COVID-19 Antigen (In-House) Negative (Negative); Influenza A Ag Negative; Influenza B Ag Negative
[2023-09-09 11:40] LABS: Procalcitonin 0.13 ng/ml (0.0-0.49)
--- NOTE | 2023-09-09 12:00 | CHAP ---
Patient was visited by the Spiritual Care Volunteer who prayed for them. (Volunteer was in hospital from 09:30-12:00)
[2023-09-09] MEDS: ACETAMINOPHEN 325 MG TABLET 650 MG GT (13:49)
--- NOTE | 2023-09-09 15:13 | PC.NURSE ---
At 1340 clinical nursing intern reported to this travel writer she witness resident to have a seizure lasting 3 seconds. Vital signs obtained as follow 98.1, 98,20,118/66. Medicated with Tylenol 325 mg x2 tablets PRN for discomfort . Students also reported urine to have large amount of blood with small clots when resident was changed and repositioned. Students were informed bleeding was caused by trauma from multiple attempts to obtain urine for UA & C&S via catheterization. RN called into the resident's room to witness bleeding amount and blood clots. Will continue to monitor for any further changes.
[2023-09-09] MEDS: LOSARTAN 25 MG TABLET GT (20:38)
[2023-09-10] VITALS (11 sets, daily range): BP systolic 98–115; BP diastolic 58–70; PULSE 65–88; RESP 20–28; TEMP 36.3–36.9; O2SAT 95–100
[2023-09-10] MEDS: IPRATROPIUM/ALBUTEROL 3 ML AMPUL.NEB INH ×4 (01:29→19:55)
[2023-09-10] MEDS: LACTULOSE 10 GM/15 ML SOLUTION GT ×3 (05:15→21:20)
[2023-09-10] MEDS: LEVOTHYROXINE 50 MCG TABLET GT (05:15)
[2023-09-10] MEDS: acetaZOLAMIDE 250 MG TABLET GT ×2 (09:02→20:19)
[2023-09-10] MEDS: BUMETANIDE 1 MG TABLET GT ×2 (09:02→20:19)
[2023-09-10] MEDS: CARVEDILOL 3.125 MG TABLET GT (09:02)
[2023-09-10] MEDS: MULTIVITAMIN 1 TAB TABLET GT (09:03)
[2023-09-10] MEDS: levETIRAcetam 750 MG TABLET GT ×2 (09:03→20:21)
[2023-09-10] MEDS: POTASSIUM CHLORIDE 20 MEQ TAB.ER.PRT GT ×2 (09:03→20:21)
[2023-09-10] MEDS: VALPROIC ACID 250 MG/5 ML 1000 MG GT (09:03)
[2023-09-10] MEDS: FERROUS SULFATE 220 MG/5 ML ELIXIR 330 MG GT (09:03)
[2023-09-10] MEDS: FAMOTIDINE 20 MG TABLET GT (09:03)
--- NOTE | 2023-09-10 12:00 | CHAP ---
Patient was visited by the Spiritual Care Volunteer who prayed for them outside room. (Volunteer was in hospital from 09:20-12:00)
[2023-09-10] MEDS: ACETAMINOPHEN 325 MG TABLET 650 MG GT (13:24)
[2023-09-10] MEDS: guaiFENesin Liq 100 MG/5 ML LIQUID 300 MG GT (13:24)
[2023-09-11] VITALS (11 sets, daily range): BP systolic 96–106; BP diastolic 61–68; PULSE 57–90; RESP 18–25; TEMP 36.3–36.6; O2SAT 97–99
[2023-09-11] MEDS: IPRATROPIUM/ALBUTEROL 3 ML AMPUL.NEB INH ×4 (01:10→18:54)
[2023-09-11] MEDS: LACTULOSE 10 GM/15 ML SOLUTION GT ×3 (05:25→21:33)
[2023-09-11] MEDS: LEVOTHYROXINE 50 MCG TABLET GT (05:25)
[2023-09-11] MEDS: levETIRAcetam 750 MG TABLET GT ×2 (08:46→20:39)
[2023-09-11] MEDS: FAMOTIDINE 20 MG TABLET GT (08:46)
[2023-09-11] MEDS: acetaZOLAMIDE 250 MG TABLET GT ×2 (08:46→20:38)
[2023-09-11] MEDS: BUMETANIDE 1 MG TABLET GT ×2 (08:46→20:39)
[2023-09-11] MEDS: POTASSIUM CHLORIDE 20 MEQ TAB.ER.PRT GT ×2 (08:47→20:41)
[2023-09-11] MEDS: VALPROIC ACID 250 MG/5 ML 1000 MG GT (08:47)
[2023-09-11] MEDS: FERROUS SULFATE 220 MG/5 ML ELIXIR 330 MG GT (08:47)
[2023-09-11] MEDS: MULTIVITAMIN 1 TAB TABLET GT (08:47)
--- NOTE | 2023-09-11 22:30 | PD.SAPROG ---
Progress Note - SubAcute DIAGNOSIS (1) Chronic respiratory failure with hypoxia: Status: Chronic (2) Dependent on ventilator: Status: Chronic (3) Congestive cardiac failure: Status: Chronic (4) Epilepsy, unspecified, intractable, without status epilepticus: Status: Chronic (5) Anemia: Status: Chronic (6) Hypothyroidism, unspecified: Status: Chronic (7) Developmental disorder of scholastic skills, unspecified: Status: Chronic (8) Age-related osteoporosis without current pathological fracture: Status: Chronic (9) Gastrostomy status: Status: Chronic (10) Tracheostomy status: Status: Chronic SUBJECTIVE Fever:: none GI:: none Shortness of Breath:: none GI:: no complaints Pain:: none OBJECTIVE Most recent vital signs: Last Vital Signs Temp 97.6 F 09/11/23 17:17 Pulse 74 09/11/23 20:41 Resp 21 H 09/11/23 18:54 BP 99/68 09/11/23 20:41 Pulse Ox 99 09/11/23 18:54 O2 Del Method Mechanical Ventilation 09/10/23 18:00 FiO2 30 09/11/23 18:54 Neurological:: awake Speech:: nods head and appropriate (Sometimes) Answers questions:: sometimes Respiratory:: lungs clear Cardiovascular: RRR Abdomen: soft and nontender Decubitus:: none Tracheostomy:: to ventilator Feeding per:: G tube Complaints:: none ASSESSMENT & PLAN Assessment: Patient with cognitive function deficits. ventilator dependent. No distress. Stable condition. Diagnosis and treatment reviewed. Pt does not tolerate weaning from Ventilator. Family updated in IDT. Pt.'s father is very supportive. Plan: Current treatment reviewed and continued
[2023-09-12] VITALS (12 sets, daily range): BP systolic 91–107; BP diastolic 59–64; PULSE 65–89; RESP 20–27; TEMP 36.4–36.7; O2SAT 98–100
[2023-09-12] MEDS: IPRATROPIUM/ALBUTEROL 3 ML AMPUL.NEB INH ×4 (00:49→17:10)
[2023-09-12] MEDS: LACTULOSE 10 GM/15 ML SOLUTION GT ×3 (05:30→21:33)
[2023-09-12] MEDS: LEVOTHYROXINE 50 MCG TABLET GT (05:30)
[2023-09-12] MEDS: BUMETANIDE 1 MG TABLET GT ×2 (08:21→20:30)
[2023-09-12] MEDS: acetaZOLAMIDE 250 MG TABLET GT ×2 (08:21→20:29)
[2023-09-12] MEDS: FAMOTIDINE 20 MG TABLET GT (08:22)
[2023-09-12] MEDS: levETIRAcetam 750 MG TABLET GT ×2 (08:23→20:31)
[2023-09-12] MEDS: FERROUS SULFATE 220 MG/5 ML ELIXIR 330 MG GT (08:23)
[2023-09-12] MEDS: VALPROIC ACID 250 MG/5 ML 1000 MG GT (08:24)
[2023-09-12] MEDS: MULTIVITAMIN 1 TAB TABLET GT (08:24)
[2023-09-12] MEDS: POTASSIUM CHLORIDE 20 MEQ TAB.ER.PRT GT ×2 (08:24→20:31)
[2023-09-13] VITALS (11 sets, daily range): BP systolic 92–108; BP diastolic 56–67; PULSE 69–85; RESP 20–25; TEMP 36.1–36.5; O2SAT 98–100
[2023-09-13] MEDS: IPRATROPIUM/ALBUTEROL 3 ML AMPUL.NEB INH ×4 (01:29→16:38)
[2023-09-13] MEDS: LACTULOSE 10 GM/15 ML SOLUTION GT ×3 (05:20→22:00)
[2023-09-13] MEDS: LEVOTHYROXINE 50 MCG TABLET GT (05:21)
[2023-09-13] MEDS: acetaZOLAMIDE 250 MG TABLET GT ×2 (08:49→20:15)
[2023-09-13] MEDS: FAMOTIDINE 20 MG TABLET GT (08:50)
[2023-09-13] MEDS: BUMETANIDE 1 MG TABLET GT ×2 (08:50→20:16)
[2023-09-13] MEDS: CARVEDILOL 3.125 MG TABLET GT (08:50)
[2023-09-13] MEDS: FERROUS SULFATE 220 MG/5 ML ELIXIR 330 MG GT (08:51)
[2023-09-13] MEDS: levETIRAcetam 750 MG TABLET GT ×2 (08:51→20:17)
[2023-09-13] MEDS: MULTIVITAMIN 1 TAB TABLET GT (08:51)
[2023-09-13] MEDS: POTASSIUM CHLORIDE 20 MEQ TAB.ER.PRT GT ×2 (08:52→20:18)
[2023-09-13] MEDS: VALPROIC ACID 250 MG/5 ML 1000 MG GT (08:53)
[2023-09-13 09:50] LABS: Basophils % (Auto) 0 % (0-2.5); Eosinophils # (Auto) 0.4 Thou/mm3 (0.0-0.5); Eosinophils % (Auto) 4 % (0-10); Hemoglobin 11.5 g/dL (13.5-16.0); Immature Granulocytes % (Auto) 1 % (0-0); Immature Granulocytes Auto 0.08 Thou/mm3 (0.00-0.00); Lymphocytes # (Auto) 2.7 Thou/mm3 (1.0-4.8); Lymphocytes % (Auto) 25 % (10-50); Mean Corpuscular HGB Conc 31.1 g/dl (31.0-37.0); Mean Corpuscular Hemoglobin 29.8 pg (25.0-35.0); Mean Corpuscular Volume 96 fL (80-100); Monocytes # (Auto) 1.4 Thou/mm3 (0.0-0.8); Monocytes % (Auto) 13 % (0-12); Neutrophils % (Auto) 57 % (37-80); Nucleated Red Blood Cell % 0 /100 WBC (0); Platelet Count 192 Thou/mm3 (140-440); RDW Standard Deviation 47.1 fL (35.1-43.9); Red Blood Count 3.86 Miln/mm3 (4.50-5.90); White Blood Count 10.6 Thou/mm3 (3.8-10.6)
[2023-09-14] VITALS (12 sets, daily range): BP systolic 90–122; BP diastolic 58–69; PULSE 63–79; RESP 20–27; TEMP 36.2–36.5; O2SAT 97–100
[2023-09-14] MEDS: IPRATROPIUM/ALBUTEROL 3 ML AMPUL.NEB INH ×4 (00:50→16:07)
[2023-09-14] MEDS: LACTULOSE 10 GM/15 ML SOLUTION GT ×3 (05:27→22:00)
[2023-09-14] MEDS: LEVOTHYROXINE 50 MCG TABLET GT (05:28)
[2023-09-14] MEDS: BUMETANIDE 1 MG TABLET GT ×2 (08:26→20:35)
[2023-09-14] MEDS: acetaZOLAMIDE 250 MG TABLET GT ×2 (08:26→20:35)
[2023-09-14] MEDS: VALPROIC ACID 250 MG/5 ML 1000 MG GT (08:28)
[2023-09-14] MEDS: FERROUS SULFATE 220 MG/5 ML ELIXIR 330 MG GT (08:28)
[2023-09-14] MEDS: MULTIVITAMIN 1 TAB TABLET GT (08:28)
[2023-09-14] MEDS: FAMOTIDINE 20 MG TABLET GT (08:28)
[2023-09-14] MEDS: POTASSIUM CHLORIDE 20 MEQ TAB.ER.PRT GT ×2 (08:28→20:36)
[2023-09-14] MEDS: levETIRAcetam 750 MG TABLET GT ×2 (08:28→20:36)
[2023-09-14] MEDS: CARVEDILOL 3.125 MG TABLET GT (20:35)
[2023-09-15] VITALS (12 sets, daily range): BP systolic 118–138; BP diastolic 72–88; PULSE 80–109; RESP 20–29; TEMP 36.2–37.1; O2SAT 97–99
[2023-09-15] MEDS: IPRATROPIUM/ALBUTEROL 3 ML AMPUL.NEB INH ×4 (01:10→18:20)
[2023-09-15] MEDS: LEVOTHYROXINE 50 MCG TABLET GT (05:22)
[2023-09-15] MEDS: LACTULOSE 10 GM/15 ML SOLUTION GT ×2 (05:22→14:41)
[2023-09-15] MEDS: acetaZOLAMIDE 250 MG TABLET GT (09:13)
[2023-09-15] MEDS: BUMETANIDE 1 MG TABLET GT (09:13)
[2023-09-15] MEDS: MAGNESIUM HYDROXIDE 30 ML ORAL SUSP ML GT (09:13)
[2023-09-15] MEDS: FERROUS SULFATE 220 MG/5 ML ELIXIR 330 MG GT (09:14)
[2023-09-15] MEDS: CARVEDILOL 3.125 MG TABLET GT (09:14)
[2023-09-15] MEDS: FAMOTIDINE 20 MG TABLET GT (09:14)
[2023-09-15] MEDS: MULTIVITAMIN 1 TAB TABLET GT (09:15)
[2023-09-15] MEDS: levETIRAcetam 750 MG TABLET GT (09:15)
[2023-09-15] MEDS: POTASSIUM CHLORIDE 20 MEQ TAB.ER.PRT GT (09:16)
[2023-09-15] MEDS: VALPROIC ACID 250 MG/5 ML 1000 MG GT (09:16)
--- NOTE | 2023-09-15 09:25 | PC.NURSE ---
Resident's GT site leaks with coffee ground in color and noted to be positive in gastric occult. Resident had brown colored emesis in small amount V/s as follows: 132/81, 109, 25, 98.7. Currently on Famotidine [address] Lackey and made aware, will do gastric occult blood if resident noted with emesis again per MD.
--- NOTE | 2023-09-15 10:16 | PC.NURSE ---
At about 0810, during resident's bedbath, staff observed GT site to be leaking dark fluid as well as having had moderate amount of dark brown emesis. Engineering Librarian and RN summoned to resident's room. Emesis and fluid leaking from GT were coffee ground in color with foul odor. No gastric residual noted. At 0817 health underwriter performed occult blood test on fluid leaked from GT site, per RN's request. Resident noted to have positive gastric occult as evidenced by blue coloring. At this time resident had second emesis that was coffee ground in color. Vital signs as followed: 132/81, 109, 25, 98.7, 97% on mechanical ventilation. Resident noted to be constipated at this time and received MOM. RN held tubefeeding for an hour. MD made aware and wants resident to be monitored and occult blood test to be performed again on emesis if resident's has another episode of emesis. Resident received all routine medication including Famotidine. Resident is currently resting with eyes closed and no s/s of discomfort noted at this time. Tubefeeding is currently running at this time and GT is currently leaking coffee ground color fluid and health underwriter is keeping resident clean. Call light in reach. Will continue with current plan of care.
--- NOTE | 2023-09-15 13:25 | CHAP ---
11:30 AM Visited by spiritual care volunteer Provided prayer for Patient.
--- NOTE | 2023-09-15 14:44 | PC.NURSE ---
At about 1415 short story writer and RN were summoned to resident's room by DATA COMMUNICATIONS ANALYST. While changing and repositioning resident, DATA COMMUNICATIONS ANALYST team observed copious coffee ground color drainage from GT site that had saturated gown and linen. Tubefeeding was held again at this time and DATA COMMUNICATIONS ANALYST was cleaned up with a linen change. Vital signs as followed: 138/87, 109, 29, 98.2, 98% 02 sat on mechanical ventilation. Resident shows no s/s of discomfortt. No gastric residual noted at this time. RN will notify MD. Call light in reach. Will continue with current plan of care.
[2023-09-15 16:21] LABS: Basophils % (Auto) 0 % (0-2.5); Eosinophils % (Auto) 0 % (0-10); Hematocrit 43.4 % (41.0-53.0); Hemoglobin 14.5 g/dL (13.5-16.0); Immature Granulocytes % (Auto) 1 % (0-0); Immature Granulocytes Auto 0.14 Thou/mm3 (0.00-0.00); Lymphocytes % (Auto) 4 % (10-50); Mean Corpuscular HGB Conc 33.4 g/dl (31.0-37.0); Mean Corpuscular Hemoglobin 30.1 pg (25.0-35.0); Mean Corpuscular Volume 90 fL (80-100); Monocytes # (Auto) 1.2 Thou/mm3 (0.0-0.8); Monocytes % (Auto) 5 % (0-12); Neutrophils # (Auto) 23.2 Thou/mm3 (1.8-7.7); Neutrophils % (Auto) 91 % (37-80); Nucleated Red Blood Cell % 0 /100 WBC (0); Platelet Count 267 Thou/mm3 (140-440); RDW Standard Deviation 42.9 fL (35.1-43.9); Red Blood Count 4.81 Miln/mm3 (4.50-5.90); White Blood Count 25.5 Thou/mm3 (3.8-10.6)
--- NOTE | 2023-09-15 17:00 | PC.NURSE ---
GT site continue to leak with coffee ground in color, resident remains stable. Respiration even and unlabored. No s/s of pain or discomfort. Dr Lackey was made aware and had ordered to do cbc and have Dr Byrne for consult. Called Dr Byrne and he said for Commercial Litigation Attorney to see the resident. Dr Lackey was notified and ordered to do consult with Dr Santiago. Received CBC result , with WBC of 25.5 and GT site leaking again with coffee ground, order received from Dr Lackey to send resident to ER for further evaluation. V/S as follows: 136/88, 106, 24, 98.3. Called ER , they're busy and unable to take report at this time and said to call them back in 15 minutes. Resident remains and awake. No s/s of respiratory distress noted.
--- NOTE | 2023-09-15 17:14 | PC.NURSE ---
Called resident's father and updated him about the resident and order to transfer to ER and appreciate much the call
--- NOTE | 2023-09-15 18:15 | PD.SAPROG ---
Progress Note - SubAcute DIAGNOSIS (1) Chronic respiratory failure with hypoxia: Status: Chronic (2) Dependent on ventilator: Status: Chronic (3) Congestive cardiac failure: Status: Chronic (4) Epilepsy, unspecified, intractable, without status epilepticus: Status: Chronic (5) Anemia: Status: Chronic (6) Hypothyroidism, unspecified: Status: Chronic (7) Developmental disorder of scholastic skills, unspecified: Status: Chronic (8) Age-related osteoporosis without current pathological fracture: Status: Chronic (9) Gastrostomy status: Status: Chronic Assessment & Plan: Intermittently leaks from gastrostomy site resultant from occasional abdominal distention/elevated intra abdominal pressure. (10) Tracheostomy status: Status: Chronic SUBJECTIVE Fever:: none GI:: none Shortness of Breath:: none GI:: no complaints Pain:: none OBJECTIVE Most recent vital signs: Last Vital Signs Temp 98.3 F 09/15/23 17:00 Pulse 106 H 09/15/23 17:00 Resp 24 H 09/15/23 17:00 BP 136/88 H 09/15/23 17:00 Pulse Ox 97 09/15/23 17:00 O2 Del Method Mechanical Ventilation 09/15/23 17:00 FiO2 30 09/15/23 17:00 Neurological:: awake Speech:: nods head and appropriate (Sometimes) Answers questions:: sometimes Respiratory:: lungs clear Cardiovascular: RRR Abdomen: soft and nontender Decubitus:: none Tracheostomy:: to ventilator Feeding per:: G tube Complaints:: none ASSESSMENT & PLAN Assessment: Patient with cognitive function deficits. ventilator dependent. No distress. Stable condition. Diagnosis and treatment reviewed. Pt does not tolerate weaning from Ventilator. Family updated in IDT. Pt.'s father is very supportive. Transient increase in leak around gastrostomy site with coffee-ground liquid positive for occult blood. Symptomatic management ineffective hence patient transferred to ER today 09/15/2023 for evaluation and management. Plan: Current treatment reviewed and continued
--- NOTE | 2023-09-15 18:42 | PC.NURSE ---
Resident continues to have moderate amount of coffee ground color drainage from GT site. Resident shows no s/s of pain or discomfort at this time. Resident had large loose bowel movement that contained mucus. Bowel sounds hypoactive in all quadrants. RN made aware. Awaiting bed in ER. Will report to oncoming MANAGER BUSINESS OPERATIONS.
--- NOTE | 2023-09-15 20:33 | PC.RT ---
Transferred pt to [facility] w/ snf search coordinator and rn. No complications noted,. Retrieved backup trach from supply and placed on HT70 ventilator. Rt Renu informed of xfer.
[2023-09-16] VITALS (11 sets, daily range): BP systolic 101–124; BP diastolic 65–81; PULSE 84–128; RESP 24–36; TEMP 37.7–38.3; O2SAT 97–99
--- NOTE | 2023-09-16 03:06 | PC.NURSE ---
resident was transfered to the ER approximately 1950 for further evaluation
--- NOTE | 2023-09-16 06:50 | PC.NURSE ---
resident is back from the ER approximately 0645.
[2023-09-16] MEDS: LEVOTHYROXINE 50 MCG TABLET GT (06:55)
[2023-09-16] MEDS: LACTULOSE 10 GM/15 ML SOLUTION GT ×3 (06:55→21:38)
--- NOTE | 2023-09-16 07:41 | PC.NURSE ---
In ER the doctor, Dr Carolina as per JOVANNI Kirby said that the liquid from the balloon of the G-tube was withdrawn with 24ml that caused irritation to the GT site, then pushed back of 10 ml that cleared up the bleeding. Was given Protonix, antibiotic Rocephin 1gm IV, Tylenol 650mg for Temp of 100.5. They said they will do CT scan, no report received.
[2023-09-16] MEDS: acetaZOLAMIDE 250 MG TABLET GT ×2 (09:09→20:55)
[2023-09-16] MEDS: BUMETANIDE 1 MG TABLET GT ×2 (09:09→20:55)
[2023-09-16] MEDS: CARBAMIDE PEROXIDE OTIC SOL 15 ML BTL 5 DROP BOTH EARS ×2 (09:10→20:57)
[2023-09-16] MEDS: VALPROIC ACID 250 MG/5 ML 1000 MG GT (09:11)
[2023-09-16] MEDS: MULTIVITAMIN 1 TAB TABLET GT (09:11)
[2023-09-16] MEDS: FAMOTIDINE 20 MG TABLET GT (09:11)
[2023-09-16] MEDS: POTASSIUM CHLORIDE 20 MEQ TAB.ER.PRT GT ×2 (09:11→20:56)
[2023-09-16] MEDS: FERROUS SULFATE 220 MG/5 ML ELIXIR 330 MG GT (09:11)
[2023-09-16] MEDS: levETIRAcetam 750 MG TABLET GT ×2 (09:11→20:56)
--- NOTE | 2023-09-16 10:20 | PC.NURSE ---
Resident noted with temp of 100.7 , V/S as follows: 104/65, 31, 121. Called and updated MD this morning that resident came back from ER. With new orders received.
--- NOTE | 2023-09-16 10:31 | PC.OT ---
Called resident's father about the resident and the new orders and appreciate much the call
[2023-09-16] MEDS: ACETAMINOPHEN 325 MG TABLET 650 MG GT ×2 (12:12→20:57)
[2023-09-16] MEDS: IPRATROPIUM/ALBUTEROL 3 ML AMPUL.NEB INH ×2 (12:20→17:55)
[2023-09-16] MEDS: LEVOFLOXACIN IN DEXTROSE 5 % 500 MG/100 ML PIGGYBACK IV (12:44)
--- NOTE | 2023-09-16 13:23 | PC.NURSE ---
Resident currently on Pepcid 20 mg daily, received order from Dr Lackey to start on Protonix 40 mg and if it's covered by his insurance then d/c the Pepcid. Order was faxed to the pharmacy and confirmed with Ryan and she said protonix is covered by resident's insurance
[2023-09-16 13:32] LABS: Albumin, Serum 3.8 gm/dL (3.4-4.8); Anion Gap 7 (7-16); BUN/Creatinine Ratio 36 Ratio (12-20); Blood Urea Nitrogen 47 mg/dL (9-23); Calcium 8.8 mg/dL (8.3-10.6); Carbon Dioxide 31.4 mMol/L (20.0-31.0); Chloride 104 mMol/L (98-107); Creatinine (Component) 1.3 mg/dL (0.6-1.3); Estimated Creatinine Clearance 61.6 mL/min (>60); Glucose 121 mg/dL (74-106); Osmolality,Calculated 296 (275-295); Phosphorous 2.4 mg/dL (2.4-5.1); Potassium 3.4 mMol/L (3.4-5.1); Sodium 142 mMol/L (136-145); eGFR > 60 See Note
--- NOTE | 2023-09-16 15:26 | PC.NURSE ---
Called Dr camp and verbally reported resident's Renal panel result,potassium 3.4 and currently on 20 meq BID . No leaking/bleeding noted to GT site at this time. Orders received from Dr camp give another extra dose of potassium 40 meq at 18:00 and to d/c order for consult with Dr Santiago.
[2023-09-16] MEDS: guaiFENesin Liq 100 MG/5 ML LIQUID 300 MG GT (17:00)
[2023-09-16] MEDS: POTASSIUM CHLORIDE 20 MEQ TAB.ER.PRT 40 MEQ GT (17:00)
--- NOTE | 2023-09-16 17:59 | PC.NURSE ---
Resident was febrile throughout this shift rectal temperatures of 100.4 to 101.0 and HR of 121-134 RN informed. Pt does not appear to be in any discomfort. No G-I bleeding noticed this shift. Medicated with Tylenol 325 mg x2 tablets PRN @ 1215 for ^ temp 101.0 rectally 128, 33, 124/8. Cooling measures applied and appeared effective ,resident received a shower and appeared helpful, follow up vital signs @ 1700 as follow Rectal temp 99.9, 105, 26, 101/65, O2 saturation 97% . Potassium low 3.4 new order received for Potassium 40meq via g-tube to be given at 1800. IV # 22 guage to Right hand intact received Rocephin IV administered by RN. No further s/s of any discomfort, will continue to monitor for any changes.
[2023-09-17] VITALS (12 sets, daily range): BP systolic 92–122; BP diastolic 64–78; PULSE 76–106; RESP 21–24; TEMP 36.1–37.5; O2SAT 98–99
[2023-09-17] MEDS: IPRATROPIUM/ALBUTEROL 3 ML AMPUL.NEB INH ×4 (00:02→16:54)
[2023-09-17] MEDS: CEFTRIAXONE 1 GM VIAL.PORT IVP (02:30)
--- NOTE | 2023-09-17 04:39 | PC.NURSE ---
Resident remains on IV antibiotics Rocephin and Levaquin for PNA, no side effects noted, IV to right wrist remains patent
[2023-09-17] MEDS: LACTULOSE 10 GM/15 ML SOLUTION GT ×3 (05:14→21:05)
[2023-09-17] MEDS: LEVOTHYROXINE 50 MCG TABLET GT (05:14)
[2023-09-17 06:43] LABS: Basophils % (Auto) 0 % (0-2.5); Eosinophils % (Auto) 0 % (0-10); Hematocrit 39.5 % (41.0-53.0); Hemoglobin 12.5 g/dL (13.5-16.0); Immature Granulocytes % (Auto) 1 % (0-0); Immature Granulocytes Auto 0.17 Thou/mm3 (0.00-0.00); Lymphocytes # (Auto) 2.6 Thou/mm3 (1.0-4.8); Lymphocytes % (Auto) 13 % (10-50); Mean Corpuscular HGB Conc 31.6 g/dl (31.0-37.0); Mean Corpuscular Volume 95 fL (80-100); Monocytes # (Auto) 2.2 Thou/mm3 (0.0-0.8); Monocytes % (Auto) 11 % (0-12); Neutrophils # (Auto) 15.6 Thou/mm3 (1.8-7.7); Neutrophils % (Auto) 76 % (37-80); Nucleated Red Blood Cell % 0 /100 WBC (0); Platelet Count 225 Thou/mm3 (140-440); RDW Standard Deviation 46.9 fL (35.1-43.9); Red Blood Count 4.16 Miln/mm3 (4.50-5.90); White Blood Count 20.6 Thou/mm3 (3.8-10.6)
[2023-09-17 07:01] LABS: Albumin, Serum 3.7 gm/dL (3.4-4.8); Anion Gap 6 (7-16); BUN/Creatinine Ratio 39 Ratio (12-20); Blood Urea Nitrogen 47 mg/dL (9-23); Calcium 9.1 mg/dL (8.3-10.6); Calcium (Corrected) 9.3 mg/dL (8.5-10.1); Carbon Dioxide 31.3 mMol/L (20.0-31.0); Chloride 106 mMol/L (98-107); Creatinine (Component) 1.2 mg/dL (0.6-1.3); Estimated Creatinine Clearance 66.7 mL/min (>60); Glucose 101 mg/dL (74-106); Osmolality,Calculated 297 (275-295); Phosphorous 2.6 mg/dL (2.4-5.1); Potassium 3.3 mMol/L (3.4-5.1); Sodium 143 mMol/L (136-145); eGFR > 60 See Note
[2023-09-17] MEDS: CARBAMIDE PEROXIDE OTIC SOL 15 ML BTL 5 DROP BOTH EARS ×2 (08:32→21:06)
[2023-09-17] MEDS: BUMETANIDE 1 MG TABLET GT ×2 (08:32→21:06)
[2023-09-17] MEDS: acetaZOLAMIDE 250 MG TABLET GT ×2 (08:32→21:06)
[2023-09-17] MEDS: CARVEDILOL 3.125 MG TABLET GT ×2 (08:33→21:07)
[2023-09-17] MEDS: FERROUS SULFATE 220 MG/5 ML ELIXIR 330 MG GT (08:33)
[2023-09-17] MEDS: PANTOPRAZOLE 40 MG GRANPKT.DR GT (08:34)
[2023-09-17] MEDS: MULTIVITAMIN 1 TAB TABLET GT (08:34)
[2023-09-17] MEDS: levETIRAcetam 750 MG TABLET GT ×2 (08:34→21:07)
[2023-09-17] MEDS: POTASSIUM CHLORIDE 20 MEQ TAB.ER.PRT GT ×2 (08:35→21:00)
[2023-09-17] MEDS: VALPROIC ACID 250 MG/5 ML 1000 MG GT (08:36)
--- NOTE | 2023-09-17 12:30 | CHAP ---
Patient was visited by the Spiritual Care Volunteer who prayed for them. (Volunteer was in the hospital from 11:30 -1:35).
--- NOTE | 2023-09-17 12:58 | PC.NURSE ---
Addendum entered by Flora Diaz RN 09/17/23 13:11: No GI bleed noted during this shift. Original Note: Notified RE: lab results for K+ and cbc. Potassium 3.3.new order for x1 dose of 40meq of potassium, re-draw bmp and Mg on 09/18. will carry out new orders. Resident remains on antibiotic regiment for PNA and UTI. No adverse reaction noted. Tolerated well. Res. remains a febrile will continue to monitor.
[2023-09-17] MEDS: POTASSIUM CHLORIDE 20 MEQ TAB.ER.PRT 40 MEQ GT (13:34)
--- NOTE | 2023-09-17 14:55 | PC.SS ---
Room visit: Resident is laying in bed with head of the bed elevated with call light properly laced. Resident remains on ventilator with trach and GT in place for medication and nutrition. Resident has no changes in care or condition, resident will remain in current care. Resident will continue to have all needs met for subacute care. SSD will make daily contact with resident and will monitor for changes in care or condition.
[2023-09-17] MEDS: LOSARTAN 25 MG TABLET GT (21:07)
[2023-09-18] VITALS (9 sets, daily range): BP systolic 93–111; BP diastolic 56–63; PULSE 72–105; RESP 22–28; TEMP 36; O2SAT 98–100
[2023-09-18] MEDS: IPRATROPIUM/ALBUTEROL 3 ML AMPUL.NEB INH ×4 (00:30→17:56)
[2023-09-18] MEDS: CEFTRIAXONE 1 GM VIAL.PORT IVP (01:19)
[2023-09-18] MEDS: LACTULOSE 10 GM/15 ML SOLUTION GT ×3 (05:07→21:11)
[2023-09-18] MEDS: LEVOTHYROXINE 50 MCG TABLET GT (05:07)
[2023-09-18] MEDS: acetaZOLAMIDE 250 MG TABLET GT ×2 (08:56→20:39)
[2023-09-18] MEDS: BUMETANIDE 1 MG TABLET GT ×2 (08:56→20:40)
[2023-09-18] MEDS: CARBAMIDE PEROXIDE OTIC SOL 15 ML BTL 5 DROP BOTH EARS ×2 (08:57→08:59)
[2023-09-18] MEDS: MULTIVITAMIN 1 TAB TABLET GT (08:58)
[2023-09-18] MEDS: levETIRAcetam 750 MG TABLET GT ×2 (08:58→20:41)
[2023-09-18] MEDS: FERROUS SULFATE 220 MG/5 ML ELIXIR 330 MG GT (08:58)
[2023-09-18] MEDS: PANTOPRAZOLE 40 MG GRANPKT.DR GT (08:58)
[2023-09-18] MEDS: VALPROIC ACID 250 MG/5 ML 1000 MG GT (08:59)
[2023-09-18] MEDS: POTASSIUM CHLORIDE 20 MEQ TAB.ER.PRT GT ×2 (08:59→20:41)
[2023-09-18] MEDS: LEVOFLOXACIN IN DEXTROSE 5 % 500 MG/100 ML PIGGYBACK IV (11:30)
--- NOTE | 2023-09-18 16:53 | PC.NURSE ---
Resident remains on Levaquin IV for PNA and Rocephin 1 gm IV for UTI, no adverse reaction noted. H/L to hand patent and intact. No s/s of infiltration noted. Respiration even and unlabored , remains afebrile. No s/s of pain or discomfort. GT feeding tolerated well. No bleeding noted to GT site.
[2023-09-19] VITALS (12 sets, daily range): BP systolic 101–118; BP diastolic 61–76; PULSE 88–119; RESP 21–26; TEMP 35.8–36.7; O2SAT 98–100
[2023-09-19] MEDS: CEFTRIAXONE 1 GM VIAL.PORT IVP (01:12)
[2023-09-19] MEDS: IPRATROPIUM/ALBUTEROL 3 ML AMPUL.NEB INH ×4 (01:42→18:10)
[2023-09-19] MEDS: LACTULOSE 10 GM/15 ML SOLUTION GT ×3 (05:13→21:16)
[2023-09-19] MEDS: LEVOTHYROXINE 50 MCG TABLET GT (05:13)
[2023-09-19 06:28] LABS: Anion Gap 6 (7-16); BUN/Creatinine Ratio 28 Ratio (12-20); Blood Urea Nitrogen 33 mg/dL (9-23); Calcium 9.2 mg/dL (8.3-10.6); Carbon Dioxide 29.2 mMol/L (20.0-31.0); Chloride 106 mMol/L (98-107); Creatinine (Component) 1.2 mg/dL (0.6-1.3); Estimated Creatinine Clearance 66.7 mL/min (>60); Glucose 100 mg/dL (74-106); Magnesium 2.2 mg/dL (1.6-2.6); Osmolality,Calculated 288 (275-295); Potassium 3.9 mMol/L (3.4-5.1); Sodium 141 mMol/L (136-145); eGFR > 60 See Note
[2023-09-19] MEDS: POTASSIUM CHLORIDE 20 MEQ TAB.ER.PRT GT ×2 (09:02→20:44)
[2023-09-19] MEDS: FERROUS SULFATE 220 MG/5 ML ELIXIR 330 MG GT (09:03)
[2023-09-19] MEDS: acetaZOLAMIDE 250 MG TABLET GT ×2 (09:03→20:43)
[2023-09-19] MEDS: CARVEDILOL 3.125 MG TABLET GT ×2 (09:03→20:43)
[2023-09-19] MEDS: BUMETANIDE 1 MG TABLET GT ×2 (09:03→20:43)
[2023-09-19] MEDS: MULTIVITAMIN 1 TAB TABLET GT (09:04)
[2023-09-19] MEDS: levETIRAcetam 750 MG TABLET GT ×2 (09:04→20:44)
[2023-09-19] MEDS: PANTOPRAZOLE 40 MG GRANPKT.DR GT (09:05)
[2023-09-19] MEDS: ACETAMINOPHEN 325 MG TABLET 650 MG GT ×2 (09:07→23:47)
[2023-09-19] MEDS: VALPROIC ACID 250 MG/5 ML 1000 MG GT (09:07)
[2023-09-19] MEDS: LEVOFLOXACIN IN DEXTROSE 5 % 500 MG/100 ML PIGGYBACK IV (11:28)
--- NOTE | 2023-09-19 13:29 | PC.NURSE ---
No significant change noted. Remains on Rocephin for UTI and Levaquin for PNA. No adverse reaction noted. Remains afebrile at this time. Respiration even and unlabored. Skin is warm and dry to touch. No s/s of pain or discomfort. Abdomen soft and non tender.
--- NOTE | 2023-09-19 15:42 | PC.NURSE ---
Resident was on nystatin powder and antifungal ointment to healed ringworm to left upper chest . Skin noted to be clear, updated Dr Lackey , order received to continue x 7 days then D/C
--- NOTE | 2023-09-19 17:20 | ESPR_ITS ---
Progress Note - SubAcute DIAGNOSIS (1) Chronic respiratory failure with hypoxia: Status: Chronic (2) Dependent on ventilator: Status: Chronic (3) Congestive cardiac failure: Status: Chronic (4) Epilepsy, unspecified, intractable, without status epilepticus: Status: Chronic (5) Anemia: Status: Chronic (6) Hypothyroidism, unspecified: Status: Chronic (7) Developmental disorder of scholastic skills, unspecified: Status: Chronic (8) Age-related osteoporosis without current pathological fracture: Status: Chronic (9) Gastrostomy status: Status: Chronic (10) Tracheostomy status: Status: Chronic SUBJECTIVE Fever:: none GI:: none Shortness of Breath:: none GI:: no complaints Pain:: none OBJECTIVE Most recent vital signs: Last Vital Signs Temp 97.0 F 09/21/23 00:00 Pulse 101 H 09/21/23 00:05 Resp 22 H 09/21/23 00:05 BP 119/74 09/21/23 00:00 Pulse Ox 100 09/21/23 00:05 O2 Del Method Mechanical Ventilation 09/20/23 15:15 FiO2 29 09/21/23 00:05 Neurological:: awake Speech:: nods head and appropriate (Sometimes) Answers questions:: sometimes Respiratory:: lungs clear Cardiovascular: RRR Abdomen: soft and nontender Decubitus:: none Tracheostomy:: to ventilator Feeding per:: G tube Complaints:: none ASSESSMENT & PLAN Assessment: Patient with cognitive function deficits. ventilator dependent. No distress. Stable condition. Diagnosis and treatment reviewed. Pt does not tolerate weaning from Ventilator. Family updated in IDT. Pt.'s father is very supportive. Transient increase in leak around gastrostomy site with coffee-ground liquid pos itive for occult blood. Symptomatic management ineffective hence patient transferred to ER 09/15/2023 for evaluation and management. Displacement of G- tube into the pyloric bulb seemed to be causing outflow obstruction which on repositioning and semi-deflating the tube balloon did resolve and pt received back later that night in a stable condition with G I consult. Plan: Current treatment reviewed and continued
[2023-09-19] MEDS: LOSARTAN 25 MG TABLET GT (20:44)
[2023-09-19] MEDS: CARBAMIDE PEROXIDE OTIC SOL 15 ML BTL 5 DROP BOTH EARS (20:45)
[2023-09-20] VITALS (14 sets, daily range): BP systolic 103–122; BP diastolic 68–85; PULSE 96–110; RESP 20–27; TEMP 36.3–36.6; O2SAT 98–100
[2023-09-20] MEDS: IPRATROPIUM/ALBUTEROL 3 ML AMPUL.NEB INH ×4 (00:20→18:05)
[2023-09-20] MEDS: CEFTRIAXONE 1 GM VIAL.PORT IVP (01:30)
--- NOTE | 2023-09-20 01:55 | PC.RT ---
Addendum entered by Nelia Hernandez RCP 09/20/23 02:04: Called to bedside @ 2329 for dislodged trach. upon entering room PT had copious bleeding from stoma. JOVANNI Bhandari stated PT had pulled trach out. New 8.0 XLTD cuffed trach placed. Original Note: Called to bedside @ 7509 for dislodged trach. upon entering room PT had copious bleeding from stoma. JOVANNI Bhandari stated PT had pulled trach out. New 7.0 XLTD cuffed trach placed.
--- NOTE | 2023-09-20 04:17 | PC.NURSE ---
At about 2330, during rounds with BDR and while changing the trach, the resident accidentally pulled his trach. Called the Charge Nurse and RT. Inserted new trach by Nelia. Pt. awake, no distress noted, and O2 sat 96%. Vital signs as followed: 118/76, 111, 24, and 98.0. Slight bleeding noted at trach area. CAll light within reach. Will continue to monitor and continue with current plan of care.
[2023-09-20] MEDS: LEVOTHYROXINE 50 MCG TABLET GT (05:12)
[2023-09-20] MEDS: LACTULOSE 10 GM/15 ML SOLUTION GT ×3 (05:12→22:00)
--- NOTE | 2023-09-20 07:12 | PC.NURSE ---
At around 23:30 of 09/19/23, resident pulled out his tracheostomy tube while being given care. Called the RT and came right away, new tube size 8 was inserted. MD and family, resident father, notified. V/S taken within normal, with small amount of bleeding noted. Continuously monitored, no distress noted. Given report to AM shift, to continue to monitor.
[2023-09-20] MEDS: CARVEDILOL 3.125 MG TABLET GT ×2 (09:05→20:04)
[2023-09-20] MEDS: MULTIVITAMIN 1 TAB TABLET GT (09:05)
[2023-09-20] MEDS: BUMETANIDE 1 MG TABLET GT ×2 (09:05→20:03)
[2023-09-20] MEDS: levETIRAcetam 750 MG TABLET GT ×2 (09:05→20:03)
[2023-09-20] MEDS: acetaZOLAMIDE 250 MG TABLET GT ×2 (09:05→20:04)
[2023-09-20] MEDS: FERROUS SULFATE 220 MG/5 ML ELIXIR 330 MG GT (09:05)
[2023-09-20] MEDS: PANTOPRAZOLE 40 MG GRANPKT.DR GT (09:06)
[2023-09-20] MEDS: POTASSIUM CHLORIDE 20 MEQ TAB.ER.PRT GT ×2 (09:06→20:06)
[2023-09-20] MEDS: VALPROIC ACID 250 MG/5 ML 1000 MG GT (09:06)
[2023-09-20] MEDS: ACETAMINOPHEN 325 MG TABLET 650 MG GT (09:09)
[2023-09-20] MEDS: LEVOFLOXACIN IN DEXTROSE 5 % 500 MG/100 ML PIGGYBACK IV (12:05)
--- NOTE | 2023-09-20 12:12 | PC.NURSE ---
Remains on antibiotics for PNA/UTI. No adverse reactions to antibiotic noted tolerated well.
[2023-09-21] VITALS (9 sets, daily range): BP systolic 119–155; BP diastolic 74–88; PULSE 79–106; RESP 20–29; TEMP 36.1–36.2; O2SAT 98–100
[2023-09-21] MEDS: IPRATROPIUM/ALBUTEROL 3 ML AMPUL.NEB INH ×4 (00:05→18:58)
[2023-09-21] MEDS: CEFTRIAXONE 1 GM VIAL.PORT IVP (01:47)
--- NOTE | 2023-09-21 04:19 | PC.NURSE ---
Resident remains on IV antibiotics Rocephin and Levaquin with no side effects noted, IV to right hand/arm remains patent, call light is within reach
[2023-09-21] MEDS: LEVOTHYROXINE 50 MCG TABLET GT (05:05)
[2023-09-21] MEDS: LACTULOSE 10 GM/15 ML SOLUTION GT ×3 (05:05→21:11)
[2023-09-21] MEDS: PANTOPRAZOLE 40 MG GRANPKT.DR GT (09:21)
[2023-09-21] MEDS: levETIRAcetam 750 MG TABLET GT ×2 (09:21→20:39)
[2023-09-21] MEDS: BUMETANIDE 1 MG TABLET GT ×2 (09:21→20:38)
[2023-09-21] MEDS: acetaZOLAMIDE 250 MG TABLET GT ×2 (09:21→20:38)
[2023-09-21] MEDS: FERROUS SULFATE 220 MG/5 ML ELIXIR 330 MG GT (09:21)
[2023-09-21] MEDS: POTASSIUM CHLORIDE 20 MEQ TAB.ER.PRT GT ×2 (09:21→20:39)
[2023-09-21] MEDS: MULTIVITAMIN 1 TAB TABLET GT (09:21)
[2023-09-21] MEDS: CARVEDILOL 3.125 MG TABLET GT ×2 (09:21→20:38)
[2023-09-21] MEDS: VALPROIC ACID 250 MG/5 ML 1000 MG GT (09:22)
[2023-09-21] MEDS: ACETAMINOPHEN 325 MG TABLET 650 MG GT ×2 (09:22→16:33)
[2023-09-21] MEDS: LEVOFLOXACIN IN DEXTROSE 5 % 500 MG/100 ML PIGGYBACK IV (11:45)
[2023-09-21] MEDS: LOSARTAN 25 MG TABLET GT (20:39)
[2023-09-22] VITALS (9 sets, daily range): BP systolic 116–126; BP diastolic 70–73; PULSE 76–100; RESP 20–30; TEMP 36.1–36.2; O2SAT 98–100
[2023-09-22] MEDS: IPRATROPIUM/ALBUTEROL 3 ML AMPUL.NEB INH ×4 (00:23→19:03)
[2023-09-22] MEDS: LEVOTHYROXINE 50 MCG TABLET GT (05:10)
[2023-09-22] MEDS: LACTULOSE 10 GM/15 ML SOLUTION GT ×3 (05:10→21:14)
--- NOTE | 2023-09-22 05:59 | PC.NURSE ---
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 Resident remains afebrile and new IV to right AC is patent, call light within reach and visible at nurse's station.
[2023-09-22] MEDS: acetaZOLAMIDE 250 MG TABLET GT ×2 (08:09→20:17)
[2023-09-22] MEDS: CARVEDILOL 3.125 MG TABLET GT ×2 (08:10→20:18)
[2023-09-22] MEDS: BUMETANIDE 1 MG TABLET GT ×2 (08:10→20:17)
[2023-09-22] MEDS: FERROUS SULFATE 220 MG/5 ML ELIXIR 330 MG GT (08:11)
[2023-09-22] MEDS: MULTIVITAMIN 1 TAB TABLET GT (08:12)
[2023-09-22] MEDS: PANTOPRAZOLE 40 MG GRANPKT.DR GT (08:12)
[2023-09-22] MEDS: POTASSIUM CHLORIDE 20 MEQ TAB.ER.PRT GT ×2 (08:12→20:18)
[2023-09-22] MEDS: levETIRAcetam 750 MG TABLET GT ×2 (08:12→20:18)
[2023-09-22] MEDS: VALPROIC ACID 250 MG/5 ML 1000 MG GT (08:13)
[2023-09-22] MEDS: LEVOFLOXACIN IN DEXTROSE 5 % 500 MG/100 ML PIGGYBACK IV (12:00)
--- NOTE | 2023-09-22 12:20 | PC.SS ---
Resident received visit from Shavon macias wage and hour investigator for conservatorship. She came in for his two year follow up meeting. She asked questions regarding current care status and conservator evolvement. Resident will remain conserved by his father and will remain in current care with no changes. Conservator is Jeremi Javier resident father, he has been notified of visit. Next review is set for two years.
--- NOTE | 2023-09-22 12:54 | PC.NURSE ---
Last dose of Levaquin 500 mg IV daily given today for Pneumonia, no adverse reaction noted. Resident remains stable and afebrile. Respiration even and unlabored. Called Dr Lackey and made aware of it, order received to do CBC tomorrow to follow up elevated WBC
[2023-09-23] VITALS (12 sets, daily range): BP systolic 96–114; BP diastolic 52–72; PULSE 81–114; RESP 22–29; TEMP 36.3–37.8; O2SAT 97–99
[2023-09-23] MEDS: IPRATROPIUM/ALBUTEROL 3 ML AMPUL.NEB INH ×4 (01:05→16:25)
[2023-09-23] MEDS: LACTULOSE 10 GM/15 ML SOLUTION GT ×3 (05:08→21:14)
[2023-09-23] MEDS: LEVOTHYROXINE 50 MCG TABLET GT (05:08)
[2023-09-23 06:25] LABS: Basophils % (Auto) 0 % (0-2.5); Eosinophils % (Auto) 0 % (0-10); Hematocrit 34.5 % (41.0-53.0); Hemoglobin 11.2 g/dL (13.5-16.0); Immature Granulocytes % (Auto) 1 % (0-0); Immature Granulocytes Auto 0.17 Thou/mm3 (0.00-0.00); Lymphocytes # (Auto) 2.3 Thou/mm3 (1.0-4.8); Lymphocytes % (Auto) 10 % (10-50); Mean Corpuscular HGB Conc 32.5 g/dl (31.0-37.0); Mean Corpuscular Hemoglobin 30.6 pg (25.0-35.0); Mean Corpuscular Volume 94 fL (80-100); Monocytes # (Auto) 2.4 Thou/mm3 (0.0-0.8); Monocytes % (Auto) 10 % (0-12); Neutrophils # (Auto) 18.6 Thou/mm3 (1.8-7.7); Neutrophils % (Auto) 79 % (37-80); Nucleated Red Blood Cell % 0 /100 WBC (0); Platelet Count 236 Thou/mm3 (140-440); RDW Standard Deviation 46.9 fL (35.1-43.9); Red Blood Count 3.66 Miln/mm3 (4.50-5.90); White Blood Count 23.4 Thou/mm3 (3.8-10.6)
[2023-09-23] MEDS: acetaZOLAMIDE 250 MG TABLET GT ×2 (08:44→20:39)
[2023-09-23] MEDS: BUMETANIDE 1 MG TABLET GT ×2 (08:45→20:39)
[2023-09-23] MEDS: CARVEDILOL 3.125 MG TABLET GT (08:46)
[2023-09-23] MEDS: FERROUS SULFATE 220 MG/5 ML ELIXIR 330 MG GT (08:46)
[2023-09-23] MEDS: PANTOPRAZOLE 40 MG GRANPKT.DR GT (08:47)
[2023-09-23] MEDS: MULTIVITAMIN 1 TAB TABLET GT (08:47)
[2023-09-23] MEDS: levETIRAcetam 750 MG TABLET GT ×2 (08:47→20:40)
[2023-09-23] MEDS: POTASSIUM CHLORIDE 20 MEQ TAB.ER.PRT GT ×2 (08:47→20:40)
[2023-09-23] MEDS: VALPROIC ACID 250 MG/5 ML 1000 MG GT (08:47)
--- NOTE | 2023-09-23 11:00 | CHAP ---
Patient was prayed for by the Spiritual Care Volunteer (silently in doorway). (Volunteer was in the hospital from c10:00-11:00).
--- NOTE | 2023-09-23 13:21 | PC.NURSE ---
Resident completed the levaquin 500 mg IV yesterday for 7 days, no adverse reaction noted. Follow up cbc was done today with WBC of 23.4, V/S taken as follows: 99.6, 114, 28, 114/70. No s/s of respiratory distress noted. Dr Lackey made aware of the CBC results, order received to do cbc on 09/25/23
--- NOTE | 2023-09-23 18:21 | PC.NURSE ---
Latest temp 100.0. No s/s of respiratory distress noted. Noted to be sleeping most of the time this afternoon but arousable. No s/s of pain or discomfort. V/S as follows: 110/72, 91, 22, O2 sat 100%. Notified Dr Lackey , no new orders made at this time. Monitor resident as per .
[2023-09-23] MEDS: ACETAMINOPHEN 325 MG TABLET 650 MG GT (20:40)
--- NOTE | 2023-09-23 22:39 | PD.SAPROG ---
Progress Note - SubAcute DIAGNOSIS (1) Chronic respiratory failure with hypoxia: Status: Chronic (2) Dependent on ventilator: Status: Chronic (3) Congestive cardiac failure: Status: Chronic (4) Epilepsy, unspecified, intractable, without status epilepticus: Status: Chronic (5) Anemia: Status: Chronic (6) Hypothyroidism, unspecified: Status: Chronic (7) Developmental disorder of scholastic skills, unspecified: Status: Chronic (8) Age-related osteoporosis without current pathological fracture: Status: Chronic (9) Gastrostomy status: Status: Chronic (10) Tracheostomy status: Status: Chronic SUBJECTIVE Fever:: unchanged (low grade) GI:: none Shortness of Breath:: none GI:: no complaints Pain:: none OBJECTIVE Most recent vital signs: Last Vital Signs Temp 100.0 F 09/23/23 17:48 Pulse 85 09/23/23 20:40 Resp 22 H 09/23/23 17:48 BP 100/63 09/23/23 20:40 Pulse Ox 99 09/23/23 17:48 O2 Del Method Mechanical Ventilation 09/23/23 06:00 FiO2 37 09/23/23 16:25 Neurological:: awake Speech:: nods head and appropriate (Sometimes) Answers questions:: sometimes Respiratory:: lungs clear Cardiovascular: RRR Abdomen: soft and nontender Decubitus:: none Tracheostomy:: to ventilator Feeding per:: G tube Complaints:: none ASSESSMENT & PLAN Assessment: Patient with cognitive function deficits. ventilator dependent. No distress. Stable condition. Diagnosis and treatment reviewed. Pt does not tolerate weaning from Ventilator. Family updated in IDT. Pt.'s father is very supportive. Transient increase in leak around gastrostomy site with coffee-ground liquid positive for occult blood. Symptomatic ineffective hence patient transferred to ER 09/15/2023 for evaluation and management. Displacement of G-tube into the pyloric bulb seemed to be causing outflow obstruction which on repositioning and semi-deflating the tube balloon did resolve and pt received back later that night in a stable condition with G I consult. Now having low grade fever with leucocytosis and being monitored closely since pt has recently just completed his Antibiotics Plan: Current treatment reviewed and continued
[2023-09-24] VITALS (12 sets, daily range): BP systolic 100–126; BP diastolic 63–76; PULSE 82–109; RESP 20–28; TEMP 36.3–37.4; O2SAT 96–99
[2023-09-24] MEDS: IPRATROPIUM/ALBUTEROL 3 ML AMPUL.NEB INH ×4 (01:05→17:30)
[2023-09-24] MEDS: LEVOTHYROXINE 50 MCG TABLET GT (05:13)
[2023-09-24] MEDS: LACTULOSE 10 GM/15 ML SOLUTION GT ×3 (05:13→21:25)
[2023-09-24] MEDS: BUMETANIDE 1 MG TABLET GT ×2 (09:11→20:30)
[2023-09-24] MEDS: acetaZOLAMIDE 250 MG TABLET GT ×2 (09:11→20:29)
[2023-09-24] MEDS: FERROUS SULFATE 220 MG/5 ML ELIXIR 330 MG GT (09:12)
[2023-09-24] MEDS: POTASSIUM CHLORIDE 20 MEQ TAB.ER.PRT GT ×2 (09:13→20:31)
[2023-09-24] MEDS: levETIRAcetam 750 MG TABLET GT ×2 (09:13→20:30)
[2023-09-24] MEDS: MULTIVITAMIN 1 TAB TABLET GT (09:13)
[2023-09-24] MEDS: PANTOPRAZOLE 40 MG GRANPKT.DR GT (09:13)
[2023-09-24] MEDS: VALPROIC ACID 250 MG/5 ML 1000 MG GT (09:13)
[2023-09-24] MEDS: ACETAMINOPHEN 325 MG TABLET 650 MG GT (09:17)
--- NOTE | 2023-09-24 12:30 | CHAP ---
Patient was prayed for by the Spiritual Care Volunteer. (Volunteer was in the hospital from 10:00-12:30).
[2023-09-24] MEDS: CARVEDILOL 3.125 MG TABLET GT (20:30)
[2023-09-25] VITALS (8 sets, daily range): BP systolic 103–132; BP diastolic 62–75; PULSE 80–109; RESP 20–27; TEMP 36.2–36.4; O2SAT 97–99
[2023-09-25] MEDS: IPRATROPIUM/ALBUTEROL 3 ML AMPUL.NEB INH ×4 (01:00→16:50)
[2023-09-25] MEDS: LACTULOSE 10 GM/15 ML SOLUTION GT ×3 (05:04→21:31)
[2023-09-25] MEDS: LEVOTHYROXINE 50 MCG TABLET GT (05:04)
[2023-09-25 07:28] LABS: Basophils % (Auto) 0 % (0-2.5); Eosinophils # (Auto) 0.1 Thou/mm3 (0.0-0.5); Eosinophils % (Auto) 1 % (0-10); Hematocrit 33.4 % (41.0-53.0); Hemoglobin 10.8 g/dL (13.5-16.0); Immature Granulocytes % (Auto) 1 % (0-0); Immature Granulocytes Auto 0.07 Thou/mm3 (0.00-0.00); Lymphocytes # (Auto) 2.1 Thou/mm3 (1.0-4.8); Lymphocytes % (Auto) 15 % (10-50); Mean Corpuscular HGB Conc 32.3 g/dl (31.0-37.0); Mean Corpuscular Hemoglobin 30.8 pg (25.0-35.0); Mean Corpuscular Volume 95 fL (80-100); Monocytes # (Auto) 1.5 Thou/mm3 (0.0-0.8); Monocytes % (Auto) 10 % (0-12); Neutrophils # (Auto) 10.8 Thou/mm3 (1.8-7.7); Neutrophils % (Auto) 74 % (37-80); Nucleated Red Blood Cell % 0 /100 WBC (0); Platelet Count 216 Thou/mm3 (140-440); RDW Standard Deviation 48.4 fL (35.1-43.9); Red Blood Count 3.51 Miln/mm3 (4.50-5.90); White Blood Count 14.6 Thou/mm3 (3.8-10.6)
[2023-09-25] MEDS: levETIRAcetam 750 MG TABLET GT ×2 (09:03→20:07)
[2023-09-25] MEDS: FERROUS SULFATE 220 MG/5 ML ELIXIR 330 MG GT (09:03)
[2023-09-25] MEDS: BUMETANIDE 1 MG TABLET GT ×2 (09:03→20:07)
[2023-09-25] MEDS: MULTIVITAMIN 1 TAB TABLET GT (09:03)
[2023-09-25] MEDS: PANTOPRAZOLE 40 MG GRANPKT.DR GT (09:03)
[2023-09-25] MEDS: acetaZOLAMIDE 250 MG TABLET GT ×2 (09:03→20:07)
[2023-09-25] MEDS: POTASSIUM CHLORIDE 20 MEQ TAB.ER.PRT GT ×2 (09:04→20:08)
[2023-09-25] MEDS: VALPROIC ACID 250 MG/5 ML 1000 MG GT (09:04)
[2023-09-25] MEDS: ACETAMINOPHEN 325 MG TABLET 650 MG GT (09:18)
[2023-09-25] MEDS: LOSARTAN 25 MG TABLET GT (20:07)
[2023-09-25] MEDS: CARVEDILOL 3.125 MG TABLET GT (20:07)
--- NOTE | 2023-09-25 20:28 | PD.SAPROG ---
Progress Note - SubAcute DIAGNOSIS (1) Chronic respiratory failure with hypoxia: Status: Chronic (2) Dependent on ventilator: Status: Chronic (3) Congestive cardiac failure: Status: Chronic (4) Epilepsy, unspecified, intractable, without status epilepticus: Status: Chronic (5) Anemia: Status: Chronic (6) Hypothyroidism, unspecified: Status: Chronic (7) Developmental disorder of scholastic skills, unspecified: Status: Chronic (8) Age-related osteoporosis without current pathological fracture: Status: Chronic (9) Gastrostomy status: Status: Chronic (10) Tracheostomy status: Status: Chronic SUBJECTIVE Fever:: unchanged (low grade) GI:: none Shortness of Breath:: none GI:: no complaints Pain:: none OBJECTIVE Most recent vital signs: Last Vital Signs Temp 97.6 F 09/25/23 17:11 Pulse 89 09/25/23 20:07 Resp 24 H 09/25/23 17:11 BP 129/73 09/25/23 20:07 Pulse Ox 97 09/25/23 16:50 O2 Del Method Mechanical Ventilation 09/24/23 06:00 FiO2 38 09/25/23 16:50 Neurological:: awake Speech:: nods head and appropriate (Sometimes) Answers questions:: sometimes Respiratory:: lungs clear Cardiovascular: RRR Abdomen: soft and nontender Decubitus:: none Tracheostomy:: to ventilator Feeding per:: G tube Complaints:: none ASSESSMENT & PLAN Assessment: Patient with cognitive function deficits. ventilator dependent. No distress. Stable condition. Diagnosis and treatment reviewed. Pt does not tolerate weaning from Ventilator. Family updated in IDT. Pt.'s father is very supportive. Transient increase in leak around gastrostomy site with coffee-ground liquid positive for occult blood. Symptomatic ineffective hence patient transferred to ER 09/15/2023 for evaluation and management. Displacement of G-tube into the pyloric bulb seemed to be causing outflow obstruction which on repositioning and semi-deflating the tube balloon did resolve and pt received back later that night in a stable condition with G I consult. Fever finally resolved after antibiotics. Plan: Current treatment reviewed and continued
[2023-09-26] VITALS (11 sets, daily range): BP systolic 91–110; BP diastolic 55–76; PULSE 58–103; RESP 20–26; TEMP 36.2–36.5; O2SAT 95–100
[2023-09-26] MEDS: IPRATROPIUM/ALBUTEROL 3 ML AMPUL.NEB INH ×4 (00:20→19:20)
[2023-09-26] MEDS: LEVOTHYROXINE 50 MCG TABLET GT (05:12)
[2023-09-26] MEDS: LACTULOSE 10 GM/15 ML SOLUTION GT ×3 (05:13→21:41)
[2023-09-26] MEDS: acetaZOLAMIDE 250 MG TABLET GT ×2 (08:13→20:24)
[2023-09-26] MEDS: BUMETANIDE 1 MG TABLET GT ×2 (08:13→20:24)
[2023-09-26] MEDS: levETIRAcetam 750 MG TABLET GT ×2 (08:14→20:26)
[2023-09-26] MEDS: MULTIVITAMIN 1 TAB TABLET GT (08:14)
[2023-09-26] MEDS: FERROUS SULFATE 220 MG/5 ML ELIXIR 330 MG GT (08:14)
[2023-09-26] MEDS: POTASSIUM CHLORIDE 20 MEQ TAB.ER.PRT GT ×2 (08:14→20:26)
[2023-09-26] MEDS: VALPROIC ACID 250 MG/5 ML 1000 MG GT (08:15)
[2023-09-26] MEDS: PANTOPRAZOLE 40 MG GRANPKT.DR GT (08:15)
[2023-09-27] VITALS (11 sets, daily range): BP systolic 95–105; BP diastolic 48–69; PULSE 77–118; RESP 21–29; TEMP 36.1–36.4; O2SAT 98–100
[2023-09-27] MEDS: IPRATROPIUM/ALBUTEROL 3 ML AMPUL.NEB INH ×4 (00:10→18:30)
[2023-09-27] MEDS: LEVOTHYROXINE 50 MCG TABLET GT (05:23)
[2023-09-27] MEDS: LACTULOSE 10 GM/15 ML SOLUTION GT ×2 (05:23→13:59)
[2023-09-27] MEDS: acetaZOLAMIDE 250 MG TABLET GT ×2 (08:52→20:14)
[2023-09-27] MEDS: BUMETANIDE 1 MG TABLET GT ×2 (08:53→20:14)
[2023-09-27] MEDS: FERROUS SULFATE 220 MG/5 ML ELIXIR 330 MG GT (08:53)
[2023-09-27] MEDS: levETIRAcetam 750 MG TABLET GT ×2 (08:53→20:15)
[2023-09-27] MEDS: POTASSIUM CHLORIDE 20 MEQ TAB.ER.PRT GT ×2 (08:54→20:15)
[2023-09-27] MEDS: VALPROIC ACID 250 MG/5 ML 1000 MG GT (08:54)
[2023-09-27] MEDS: PANTOPRAZOLE 40 MG GRANPKT.DR GT (08:54)
[2023-09-27] MEDS: MULTIVITAMIN 1 TAB TABLET GT (08:54)
--- NOTE | 2023-09-27 15:05 | PC.NURSE ---
Mel dentist came in and provided dental cleaning to the resident
[2023-09-28] VITALS (8 sets, daily range): BP systolic 102–131; BP diastolic 66–83; PULSE 78–105; RESP 20–24; TEMP 36.2–36.4; O2SAT 98–100
[2023-09-28] MEDS: IPRATROPIUM/ALBUTEROL 3 ML AMPUL.NEB INH ×4 (00:44→20:15)
[2023-09-28] MEDS: LACTULOSE 10 GM/15 ML SOLUTION GT ×3 (05:08→21:17)
[2023-09-28] MEDS: LEVOTHYROXINE 50 MCG TABLET GT (05:08)
[2023-09-28] MEDS: FERROUS SULFATE 220 MG/5 ML ELIXIR 330 MG GT (08:07)
[2023-09-28] MEDS: acetaZOLAMIDE 250 MG TABLET GT ×2 (08:07→20:40)
[2023-09-28] MEDS: BUMETANIDE 1 MG TABLET GT ×2 (08:07→20:40)
[2023-09-28] MEDS: CARVEDILOL 3.125 MG TABLET GT (08:07)
[2023-09-28] MEDS: MULTIVITAMIN 1 TAB TABLET GT (08:08)
[2023-09-28] MEDS: levETIRAcetam 750 MG TABLET GT ×2 (08:08→20:41)
[2023-09-28] MEDS: PANTOPRAZOLE 40 MG GRANPKT.DR GT (08:09)
[2023-09-28] MEDS: POTASSIUM CHLORIDE 20 MEQ TAB.ER.PRT GT ×2 (08:11→20:41)
[2023-09-28] MEDS: VALPROIC ACID 250 MG/5 ML 1000 MG GT (08:12)
--- NOTE | 2023-09-28 10:31 | CHAP ---
Patient was visited by a Spiritual Care Volunteer on 09/27/2023 between [id number] and [id number] and received encouragement and prayer.
--- NOTE | 2023-09-28 11:10 | PC.DIETICIAN ---
Dietitian consult: Verbal referral from Francie Williamson who is requesting to decrease TF time to 20hours/day due to TF interactions and ADL. Recommend adjust TF regimen: Jevity 1.5 at 61ml/hr x 20hr via GT by pump. Orders completed. Thank you
[2023-09-28] MEDS: SILVER NITRATE APPLICATOR 1 EACH STICK..EA. TOP (12:15)
--- NOTE | 2023-09-28 13:33 | PC.SS ---
Resident seen by DDS on 09/27/23 for full mouth dental cleaning with fluoride, tolerated well. Recommendation for a 4 month dental cleaning. [facility] will get in touch with this SSD for schedule of next bedside appointment.
--- NOTE | 2023-09-28 15:08 | PC.NURSE ---
Resident on Coreg 3.125 mg BID and Losartan 25 mg q 48 hrs. Coreg has been on hold several times for the past one month. Updated Dr Lackey about resident's B/P readings, order received to decrease Coreg to once a day
[2023-09-29] VITALS (11 sets, daily range): BP systolic 99–112; BP diastolic 60–72; PULSE 60–110; RESP 20–33; TEMP 36.3–36.4; O2SAT 98–100
[2023-09-29] MEDS: IPRATROPIUM/ALBUTEROL 3 ML AMPUL.NEB INH ×4 (00:35→18:55)
[2023-09-29] MEDS: LACTULOSE 10 GM/15 ML SOLUTION GT ×3 (05:12→22:50)
[2023-09-29] MEDS: LEVOTHYROXINE 50 MCG TABLET GT (05:12)
--- NOTE | 2023-09-29 09:33 | CHAP ---
Patient was visited by a Spiritual Care Volunteer on 09/28/2023 between 1000 and 1300 and received comfort and prayer.
[2023-09-29] MEDS: levETIRAcetam 750 MG TABLET GT ×2 (09:51→20:49)
[2023-09-29] MEDS: BUMETANIDE 1 MG TABLET GT ×2 (09:51→20:48)
[2023-09-29] MEDS: acetaZOLAMIDE 250 MG TABLET GT ×2 (09:51→20:48)
[2023-09-29] MEDS: PANTOPRAZOLE 40 MG GRANPKT.DR GT (09:52)
[2023-09-29] MEDS: MULTIVITAMIN 1 TAB TABLET GT (09:52)
[2023-09-29] MEDS: FERROUS SULFATE 220 MG/5 ML ELIXIR 330 MG GT (09:52)
[2023-09-29] MEDS: CARVEDILOL 3.125 MG TABLET GT (09:52)
[2023-09-29] MEDS: POTASSIUM CHLORIDE 20 MEQ TAB.ER.PRT GT ×2 (09:53→20:49)
[2023-09-29] MEDS: VALPROIC ACID 250 MG/5 ML 1000 MG GT (09:53)
--- NOTE | 2023-09-29 11:17 | PC.SS ---
[employer] Resource Developer/QA Ayde Garvin, came in for unannounced visit. She had a tour of the department, asked for last fire drill date, asked nurse to see where resident medications are stored and asked to activity room. Ayde completed her report of her visit and concluded visit.
--- NOTE | 2023-09-29 16:42 | CHAP ---
11:00 AM Visited by spiritual care volunteer Provided prayer for Patient.
[2023-09-29] MEDS: ACETAMINOPHEN 325 MG TABLET 650 MG GT (20:45)
[2023-09-30] VITALS (10 sets, daily range): BP systolic 97–131; BP diastolic 68–88; PULSE 62–100; RESP 20–28; TEMP 36.2–36.4; O2SAT 97–100
[2023-09-30] MEDS: IPRATROPIUM/ALBUTEROL 3 ML AMPUL.NEB INH ×4 (01:06→19:07)
[2023-09-30] MEDS: LEVOTHYROXINE 50 MCG TABLET GT (05:32)
[2023-09-30] MEDS: LACTULOSE 10 GM/15 ML SOLUTION GT ×3 (05:32→21:39)
[2023-09-30] MEDS: acetaZOLAMIDE 250 MG TABLET GT ×2 (09:02→20:44)
[2023-09-30] MEDS: BUMETANIDE 1 MG TABLET GT ×2 (09:02→20:44)
[2023-09-30] MEDS: MULTIVITAMIN 1 TAB TABLET GT (09:03)
[2023-09-30] MEDS: FERROUS SULFATE 220 MG/5 ML ELIXIR 330 MG GT (09:03)
[2023-09-30] MEDS: levETIRAcetam 750 MG TABLET GT ×2 (09:03→20:45)
[2023-09-30] MEDS: PANTOPRAZOLE 40 MG GRANPKT.DR GT (09:04)
[2023-09-30] MEDS: POTASSIUM CHLORIDE 20 MEQ TAB.ER.PRT GT ×2 (09:05→20:45)
[2023-09-30] MEDS: VALPROIC ACID 250 MG/5 ML 1000 MG GT (09:05)
--- NOTE | 2023-09-30 11:59 | PC.NURSE ---
Stationary Engineer Supervisor Pharmacist MRR
--- NOTE | 2023-09-30 12:20 | PD.SAPROG ---
Progress Note - SubAcute DIAGNOSIS (1) Chronic respiratory failure with hypoxia: Status: Chronic (2) Dependent on ventilator: Status: Chronic (3) Congestive cardiac failure: Status: Chronic (4) Epilepsy, unspecified, intractable, without status epilepticus: Status: Chronic (5) Anemia: Status: Chronic (6) Hypothyroidism, unspecified: Status: Chronic (7) Developmental disorder of scholastic skills, unspecified: Status: Chronic (8) Age-related osteoporosis without current pathological fracture: Status: Chronic (9) Gastrostomy status: Status: Chronic (10) Tracheostomy status: Status: Chronic SUBJECTIVE Fever:: unchanged (low grade) GI:: none Shortness of Breath:: none GI:: no complaints Pain:: none OBJECTIVE Most recent vital signs: Last Vital Signs Temp 96.9 F 10/04/23 18:00 Pulse 91 10/04/23 18:00 Resp 20 10/04/23 18:00 BP 102/67 10/04/23 18:00 Pulse Ox 99 10/04/23 12:25 O2 Del Method Mechanical Ventilation 10/03/23 17:26 FiO2 37 10/04/23 12:25 Neurological:: awake Speech:: nods head and appropriate (Sometimes) Answers questions:: sometimes Respiratory:: lungs clear Cardiovascular: RRR Abdomen: soft and nontender Decubitus:: none Tracheostomy:: to ventilator Feeding per:: G tube Complaints:: none ASSESSMENT & PLAN Assessment: Patient with cognitive function deficits. ventilator dependent. No distress. Stable condition. Diagnosis and treatment reviewed. Pt does not tolerate weaning from Ventilator. Family updated in IDT. Pt.'s father is very supportive. Transient increase in leak around gastrostomy site with coffee-ground liquid positive for occult blood. Symptomatic ineffective hence patient transferred to ER 09/15/2023 for evaluation and management. Displacement of G-tube into the pyloric bulb seemed to be causing outflow obstruction which on repositioning and semi-deflating the tube balloon did resolve and pt received back later that night in a stable condition with G I consult. Fever finally resolved after antibiotics. Plan: Current treatment reviewed and continued
--- NOTE | 2023-09-30 17:17 | PC.RT ---
Trach & vent changed today. No complications.
[2023-10-01] VITALS (12 sets, daily range): BP systolic 94–124; BP diastolic 58–81; PULSE 69–109; RESP 18–31; TEMP 36.1–36.6; O2SAT 97–100
[2023-10-01] MEDS: IPRATROPIUM/ALBUTEROL 3 ML AMPUL.NEB INH ×4 (01:37→19:05)
[2023-10-01] MEDS: LEVOTHYROXINE 50 MCG TABLET GT (05:32)
[2023-10-01] MEDS: LACTULOSE 10 GM/15 ML SOLUTION GT ×3 (05:32→21:36)
[2023-10-01] MEDS: acetaZOLAMIDE 250 MG TABLET GT ×2 (09:08→20:44)
[2023-10-01] MEDS: BUMETANIDE 1 MG TABLET GT ×2 (09:08→20:44)
[2023-10-01] MEDS: POTASSIUM CHLORIDE 20 MEQ TAB.ER.PRT GT ×2 (09:09→20:46)
[2023-10-01] MEDS: MULTIVITAMIN 1 TAB TABLET GT (09:09)
[2023-10-01] MEDS: FERROUS SULFATE 220 MG/5 ML ELIXIR 330 MG GT (09:09)
[2023-10-01] MEDS: PANTOPRAZOLE 40 MG GRANPKT.DR GT (09:09)
[2023-10-01] MEDS: CARVEDILOL 3.125 MG TABLET GT (09:09)
[2023-10-01] MEDS: VALPROIC ACID 250 MG/5 ML 1000 MG GT (09:10)
[2023-10-01] MEDS: ACETAMINOPHEN 325 MG TABLET 650 MG GT (09:11)
[2023-10-01] MEDS: levETIRAcetam 750 MG TABLET GT ×2 (09:12→20:45)
--- NOTE | 2023-10-01 12:22 | CHAP ---
Patient was visited by the Spiritual Care Volunteer who prayed for them. (Volunteer was in the hospital from 10:30-12:22).
[2023-10-02] VITALS (9 sets, daily range): BP systolic 94–114; BP diastolic 58–70; PULSE 79–100; RESP 21–28; TEMP 36–36.6; O2SAT 97–100
[2023-10-02] MEDS: IPRATROPIUM/ALBUTEROL 3 ML AMPUL.NEB INH ×4 (00:35→18:50)
[2023-10-02] MEDS: LACTULOSE 10 GM/15 ML SOLUTION GT ×3 (05:36→21:38)
[2023-10-02] MEDS: LEVOTHYROXINE 50 MCG TABLET GT (05:36)
[2023-10-02] MEDS: acetaZOLAMIDE 250 MG TABLET GT ×2 (08:56→20:37)
[2023-10-02] MEDS: FERROUS SULFATE 220 MG/5 ML ELIXIR 330 MG GT (08:57)
[2023-10-02] MEDS: levETIRAcetam 750 MG TABLET GT ×2 (08:57→20:37)
[2023-10-02] MEDS: MULTIVITAMIN 1 TAB TABLET GT (08:57)
[2023-10-02] MEDS: BUMETANIDE 1 MG TABLET GT ×2 (08:57→20:37)
[2023-10-02] MEDS: PANTOPRAZOLE 40 MG GRANPKT.DR GT (08:58)
[2023-10-02] MEDS: POTASSIUM CHLORIDE 20 MEQ TAB.ER.PRT GT ×2 (08:58→20:38)
[2023-10-02] MEDS: VALPROIC ACID 250 MG/5 ML 1000 MG GT (08:58)
[2023-10-02] MEDS: ACETAMINOPHEN 325 MG TABLET 650 MG GT (09:17)
[2023-10-03] VITALS (11 sets, daily range): BP systolic 103–136; BP diastolic 62–82; PULSE 67–94; RESP 20–26; TEMP 36.1–36.3; O2SAT 98–100
[2023-10-03] MEDS: IPRATROPIUM/ALBUTEROL 3 ML AMPUL.NEB INH ×4 (00:35→18:17)
[2023-10-03] MEDS: LACTULOSE 10 GM/15 ML SOLUTION GT ×3 (05:15→21:50)
[2023-10-03] MEDS: LEVOTHYROXINE 50 MCG TABLET GT (05:15)
[2023-10-03] MEDS: acetaZOLAMIDE 250 MG TABLET GT ×2 (08:31→20:36)
[2023-10-03] MEDS: BUMETANIDE 1 MG TABLET GT ×2 (08:32→20:37)
[2023-10-03] MEDS: FERROUS SULFATE 220 MG/5 ML ELIXIR 330 MG GT (08:33)
[2023-10-03] MEDS: MULTIVITAMIN 1 TAB TABLET GT (08:33)
[2023-10-03] MEDS: POTASSIUM CHLORIDE 20 MEQ TAB.ER.PRT GT ×2 (08:33→20:39)
[2023-10-03] MEDS: levETIRAcetam 750 MG TABLET GT ×2 (08:33→20:37)
[2023-10-03] MEDS: PANTOPRAZOLE 40 MG GRANPKT.DR GT (08:34)
[2023-10-03] MEDS: VALPROIC ACID 250 MG/5 ML 1000 MG GT (08:35)
[2023-10-04] VITALS (10 sets, daily range): BP systolic 90–104; BP diastolic 59–67; PULSE 60–100; RESP 20–23; TEMP 36.1–36.6; O2SAT 95–99
[2023-10-04] MEDS: IPRATROPIUM/ALBUTEROL 3 ML AMPUL.NEB INH ×4 (00:40→18:05)
[2023-10-04] MEDS: LACTULOSE 10 GM/15 ML SOLUTION GT ×3 (05:37→21:24)
[2023-10-04] MEDS: LEVOTHYROXINE 50 MCG TABLET GT (05:37)
[2023-10-04] MEDS: acetaZOLAMIDE 250 MG TABLET GT ×2 (08:55→20:15)
[2023-10-04] MEDS: BUMETANIDE 1 MG TABLET GT ×2 (08:55→20:16)
[2023-10-04] MEDS: FERROUS SULFATE 220 MG/5 ML ELIXIR 330 MG GT (08:56)
[2023-10-04] MEDS: PANTOPRAZOLE 40 MG GRANPKT.DR GT (08:57)
[2023-10-04] MEDS: POTASSIUM CHLORIDE 20 MEQ TAB.ER.PRT GT ×2 (08:57→20:16)
[2023-10-04] MEDS: levETIRAcetam 750 MG TABLET GT ×2 (08:57→20:16)
[2023-10-04] MEDS: MULTIVITAMIN 1 TAB TABLET GT (08:57)
[2023-10-04] MEDS: MAGNESIUM HYDROXIDE 30 ML ORAL SUSP ML GT (08:58)
[2023-10-04] MEDS: VALPROIC ACID 250 MG/5 ML 1000 MG GT (08:58)
--- NOTE | 2023-10-04 14:50 | PC.NURSE ---
Bed bath and trach care was provided to resident with no issues to note. Linen was changed and wound care was provided. Bed was placed in lowest setting with call light in reach.
[2023-10-05] VITALS (12 sets, daily range): BP systolic 98–125; BP diastolic 60–77; PULSE 65–103; RESP 21–28; TEMP 36.4–37.1; O2SAT 98–100
[2023-10-05] MEDS: IPRATROPIUM/ALBUTEROL 3 ML AMPUL.NEB INH ×4 (00:30→19:35)
[2023-10-05] MEDS: LACTULOSE 10 GM/15 ML SOLUTION GT ×3 (05:21→22:01)
[2023-10-05] MEDS: LEVOTHYROXINE 50 MCG TABLET GT (05:22)
[2023-10-05] MEDS: acetaZOLAMIDE 250 MG TABLET GT ×2 (09:03→20:22)
[2023-10-05] MEDS: BUMETANIDE 1 MG TABLET GT ×2 (09:03→20:22)
[2023-10-05] MEDS: FERROUS SULFATE 220 MG/5 ML ELIXIR 330 MG GT (09:04)
[2023-10-05] MEDS: levETIRAcetam 750 MG TABLET GT ×2 (09:04→20:22)
[2023-10-05] MEDS: POTASSIUM CHLORIDE 20 MEQ TAB.ER.PRT GT ×2 (09:05→20:23)
[2023-10-05] MEDS: MULTIVITAMIN 1 TAB TABLET GT (09:05)
[2023-10-05] MEDS: PANTOPRAZOLE 40 MG GRANPKT.DR GT (09:05)
[2023-10-05] MEDS: VALPROIC ACID 250 MG/5 ML 1000 MG GT (09:07)
[2023-10-05] MEDS: LOSARTAN 25 MG TABLET GT (20:23)
[2023-10-06] VITALS (10 sets, daily range): BP systolic 90–113; BP diastolic 59–72; PULSE 72–101; RESP 17–73; TEMP 36.1–36.9; O2SAT 95–100
[2023-10-06] MEDS: IPRATROPIUM/ALBUTEROL 3 ML AMPUL.NEB INH ×4 (01:06→18:59)
[2023-10-06] MEDS: LEVOTHYROXINE 50 MCG TABLET GT (05:08)
[2023-10-06] MEDS: LACTULOSE 10 GM/15 ML SOLUTION GT ×3 (05:08→21:08)
[2023-10-06] MEDS: acetaZOLAMIDE 250 MG TABLET GT ×2 (08:25→20:22)
[2023-10-06] MEDS: CARVEDILOL 3.125 MG TABLET GT (08:27)
[2023-10-06] MEDS: BUMETANIDE 1 MG TABLET GT ×2 (08:27→20:22)
[2023-10-06] MEDS: MULTIVITAMIN 1 TAB TABLET GT (08:28)
[2023-10-06] MEDS: levETIRAcetam 750 MG TABLET GT ×2 (08:28→20:23)
[2023-10-06] MEDS: FERROUS SULFATE 220 MG/5 ML ELIXIR 330 MG GT (08:28)
[2023-10-06] MEDS: POTASSIUM CHLORIDE 20 MEQ TAB.ER.PRT GT ×2 (08:29→20:23)
[2023-10-06] MEDS: VALPROIC ACID 250 MG/5 ML 1000 MG GT (08:29)
[2023-10-06] MEDS: PANTOPRAZOLE 40 MG GRANPKT.DR GT (08:29)
[2023-10-07] VITALS (12 sets, daily range): BP systolic 90–114; BP diastolic 61–73; PULSE 81–99; RESP 20–24; TEMP 36.1–36.6; O2SAT 98–100
[2023-10-07] MEDS: IPRATROPIUM/ALBUTEROL 3 ML AMPUL.NEB INH ×4 (00:55→19:41)
[2023-10-07] MEDS: LEVOTHYROXINE 50 MCG TABLET GT (05:09)
[2023-10-07] MEDS: LACTULOSE 10 GM/15 ML SOLUTION GT ×3 (05:09→21:09)
[2023-10-07] MEDS: acetaZOLAMIDE 250 MG TABLET GT ×2 (08:47→20:34)
[2023-10-07] MEDS: BUMETANIDE 1 MG TABLET GT ×2 (08:47→20:34)
[2023-10-07] MEDS: FERROUS SULFATE 220 MG/5 ML ELIXIR 330 MG GT (08:48)
[2023-10-07] MEDS: PANTOPRAZOLE 40 MG GRANPKT.DR GT (08:49)
[2023-10-07] MEDS: MULTIVITAMIN 1 TAB TABLET GT (08:49)
[2023-10-07] MEDS: levETIRAcetam 750 MG TABLET GT ×2 (08:49→20:35)
[2023-10-07] MEDS: POTASSIUM CHLORIDE 20 MEQ TAB.ER.PRT GT ×2 (08:50→20:35)
[2023-10-07] MEDS: VALPROIC ACID 250 MG/5 ML 1000 MG GT (08:50)
--- NOTE | 2023-10-07 13:00 | CHAP ---
Patient was sleeping but was prayed for by the Spiritual Care Volunteer. (Volunteer was in the hospital sub-acute from 12:30-13:00). (Patient was in room #107)
[2023-10-08] VITALS (11 sets, daily range): BP systolic 99–123; BP diastolic 67–75; PULSE 63–106; RESP 20–25; TEMP 36.3–36.8; O2SAT 97–100
[2023-10-08] MEDS: guaiFENesin Liq 100 MG/5 ML LIQUID 300 MG GT ×2 (01:00→14:00)
[2023-10-08] MEDS: IPRATROPIUM/ALBUTEROL 3 ML AMPUL.NEB INH ×4 (01:29→18:18)
[2023-10-08] MEDS: LACTULOSE 10 GM/15 ML SOLUTION GT ×3 (05:11→21:43)
[2023-10-08] MEDS: LEVOTHYROXINE 50 MCG TABLET GT (05:12)
[2023-10-08] MEDS: acetaZOLAMIDE 250 MG TABLET GT ×2 (08:27→20:15)
[2023-10-08] MEDS: BUMETANIDE 1 MG TABLET GT ×2 (08:27→20:16)
[2023-10-08] MEDS: FERROUS SULFATE 220 MG/5 ML ELIXIR 330 MG GT (08:28)
[2023-10-08] MEDS: levETIRAcetam 750 MG TABLET GT ×2 (08:28→20:16)
[2023-10-08] MEDS: MULTIVITAMIN 1 TAB TABLET GT (08:29)
[2023-10-08] MEDS: POTASSIUM CHLORIDE 20 MEQ TAB.ER.PRT GT ×2 (08:30→20:16)
[2023-10-08] MEDS: VALPROIC ACID 250 MG/5 ML 1000 MG GT (08:30)
[2023-10-08] MEDS: PANTOPRAZOLE 40 MG GRANPKT.DR GT (08:30)
--- NOTE | 2023-10-08 12:00 | CHAP ---
Patient was visited by the Spiritual Care Volunteer who prayed for them. (Volunteer was in the hospital from 10:0-12:00).
--- NOTE | 2023-10-08 21:59 | PD.SAPROG ---
Progress Note - SubAcute DIAGNOSIS (1) Chronic respiratory failure with hypoxia: Status: Chronic (2) Dependent on ventilator: Status: Chronic (3) Congestive cardiac failure: Status: Chronic (4) Epilepsy, unspecified, intractable, without status epilepticus: Status: Chronic (5) Anemia: Status: Chronic (6) Hypothyroidism, unspecified: Status: Chronic (7) Developmental disorder of scholastic skills, unspecified: Status: Chronic (8) Age-related osteoporosis without current pathological fracture: Status: Chronic (9) Gastrostomy status: Status: Chronic (10) Tracheostomy status: Status: Chronic SUBJECTIVE Fever:: unchanged (low grade) GI:: none Shortness of Breath:: none GI:: no complaints Pain:: none OBJECTIVE Most recent vital signs: Last Vital Signs Temp 97.4 F 10/08/23 17:50 Pulse 106 H 10/08/23 20:16 Resp 20 10/08/23 17:50 BP 99/67 10/08/23 20:16 Pulse Ox 97 10/08/23 17:50 O2 Del Method Mechanical Ventilation 10/08/23 05:58 FiO2 36 10/08/23 13:18 Neurological:: awake Speech:: nods head and appropriate (Sometimes) Answers questions:: sometimes Respiratory:: lungs clear Cardiovascular: RRR Abdomen: soft and nontender Decubitus:: none Tracheostomy:: to ventilator Feeding per:: G tube Complaints:: none ASSESSMENT & PLAN Assessment: Patient with cognitive function deficits. ventilator dependent. No distress. Stable condition. Diagnosis and treatment reviewed. Pt does not tolerate weaning from Ventilator. Family updated in IDT. Pt.'s father is very supportive. Transient increase in leak around gastrostomy site with coffee-ground liquid positive for occult blood. Symptomatic ineffective hence patient transferred to ER 09/15/2023 for evaluation and management. Displacement of G-tube into the pyloric bulb seemed to be causing outflow obstruction which on repositioning and semi-deflating the tube balloon did resolve and pt received back later that night in a stable condition with G I consult. Fever finally resolved after antibiotics. now back to baseline stable status Plan: Current treatment reviewed and continued
[2023-10-09] VITALS (12 sets, daily range): BP systolic 102–125; BP diastolic 65–75; PULSE 76–99; RESP 20–25; TEMP 36.1–36.4; O2SAT 98–100
[2023-10-09] MEDS: IPRATROPIUM/ALBUTEROL 3 ML AMPUL.NEB INH ×4 (00:58→18:06)
[2023-10-09] MEDS: LACTULOSE 10 GM/15 ML SOLUTION GT ×3 (05:25→21:56)
[2023-10-09] MEDS: LEVOTHYROXINE 50 MCG TABLET GT (05:25)
[2023-10-09] MEDS: BUMETANIDE 1 MG TABLET GT ×2 (09:01→20:36)
[2023-10-09] MEDS: acetaZOLAMIDE 250 MG TABLET GT ×2 (09:01→20:36)
[2023-10-09] MEDS: CARVEDILOL 3.125 MG TABLET GT (09:02)
[2023-10-09] MEDS: FERROUS SULFATE 220 MG/5 ML ELIXIR 330 MG GT (09:03)
[2023-10-09] MEDS: MULTIVITAMIN 1 TAB TABLET GT (09:03)
[2023-10-09] MEDS: levETIRAcetam 750 MG TABLET GT ×2 (09:03→20:36)
[2023-10-09] MEDS: POTASSIUM CHLORIDE 20 MEQ TAB.ER.PRT GT ×2 (09:04→20:37)
[2023-10-09] MEDS: PANTOPRAZOLE 40 MG GRANPKT.DR GT (09:04)
[2023-10-09] MEDS: VALPROIC ACID 250 MG/5 ML 1000 MG GT (09:05)
[2023-10-10] VITALS (9 sets, daily range): BP systolic 94–128; BP diastolic 58–76; PULSE 76–97; RESP 20–25; TEMP 36.1–36.3; O2SAT 98–99
[2023-10-10] MEDS: IPRATROPIUM/ALBUTEROL 3 ML AMPUL.NEB INH ×4 (00:12→18:59)
[2023-10-10] MEDS: LACTULOSE 10 GM/15 ML SOLUTION GT ×3 (05:10→21:15)
[2023-10-10] MEDS: LEVOTHYROXINE 50 MCG TABLET GT (05:10)
[2023-10-10] MEDS: acetaZOLAMIDE 250 MG TABLET GT ×2 (08:14→20:34)
[2023-10-10] MEDS: BUMETANIDE 1 MG TABLET GT ×2 (08:14→20:34)
[2023-10-10] MEDS: FERROUS SULFATE 220 MG/5 ML ELIXIR 330 MG GT (08:15)
[2023-10-10] MEDS: MULTIVITAMIN 1 TAB TABLET GT (08:15)
[2023-10-10] MEDS: levETIRAcetam 750 MG TABLET GT ×2 (08:15→20:34)
[2023-10-10] MEDS: PANTOPRAZOLE 40 MG GRANPKT.DR GT (08:17)
[2023-10-10] MEDS: VALPROIC ACID 250 MG/5 ML 1000 MG GT (08:18)
[2023-10-10] MEDS: POTASSIUM CHLORIDE 20 MEQ TAB.ER.PRT GT ×2 (08:18→20:35)
[2023-10-11] VITALS (9 sets, daily range): BP systolic 104–111; BP diastolic 61–73; PULSE 69–108; RESP 20–30; TEMP 36.1–36.2; O2SAT 97–99
[2023-10-11] MEDS: LACTULOSE 10 GM/15 ML SOLUTION GT ×3 (05:12→22:09)
[2023-10-11] MEDS: LEVOTHYROXINE 50 MCG TABLET GT (05:12)
[2023-10-11] MEDS: IPRATROPIUM/ALBUTEROL 3 ML AMPUL.NEB INH ×3 (06:37→18:40)
[2023-10-11] MEDS: acetaZOLAMIDE 250 MG TABLET GT ×2 (09:12→20:31)
[2023-10-11] MEDS: FERROUS SULFATE 220 MG/5 ML ELIXIR 330 MG GT (09:15)
[2023-10-11] MEDS: MULTIVITAMIN 1 TAB TABLET GT (09:16)
[2023-10-11] MEDS: BUMETANIDE 1 MG TABLET GT ×2 (09:16→20:31)
[2023-10-11] MEDS: levETIRAcetam 750 MG TABLET GT ×2 (09:16→20:31)
[2023-10-11] MEDS: VALPROIC ACID 250 MG/5 ML 1000 MG GT (09:17)
[2023-10-11] MEDS: POTASSIUM CHLORIDE 20 MEQ TAB.ER.PRT GT ×2 (09:17→20:32)
--- NOTE | 2023-10-11 10:16 | PC.SS ---
Room visit: Resident is seen laying in bed with head of the bed elevated with call light properly placed. Resident is not showing any signs of distress. Resident will remain in current care as he remains on ventilator with trach in place and GT for medication and nutrition. Resident remains conserved by his father Jeremi Javier. He is a CV client, his counselor is Georgi Zamora. Resident will continue to have all needs met as he is total care and unable to make needs known. This SSD will continue to make daily contact and monitor for any changes in mood or behavior.
[2023-10-11] MEDS: PANTOPRAZOLE 40 MG GRANPKT.DR GT (12:17)
--- NOTE | 2023-10-11 16:08 | CHAP ---
10:30 AM Visited by spiritual care volunteer Provided prayer for Patient.
[2023-10-11] MEDS: LOSARTAN 25 MG TABLET GT (20:31)
[2023-10-12] VITALS (12 sets, daily range): BP systolic 90–123; BP diastolic 58–69; PULSE 74–108; RESP 21–25; TEMP 36.3–36.8; O2SAT 95–100
[2023-10-12] MEDS: IPRATROPIUM/ALBUTEROL 3 ML AMPUL.NEB INH ×4 (00:15→18:10)
[2023-10-12] MEDS: LACTULOSE 10 GM/15 ML SOLUTION GT ×2 (05:08→21:41)
[2023-10-12] MEDS: LEVOTHYROXINE 50 MCG TABLET GT (05:08)
[2023-10-12] MEDS: acetaZOLAMIDE 250 MG TABLET GT ×2 (08:55→20:16)
[2023-10-12] MEDS: BUMETANIDE 1 MG TABLET GT ×2 (08:55→20:16)
[2023-10-12] MEDS: FERROUS SULFATE 220 MG/5 ML ELIXIR 330 MG GT (08:56)
[2023-10-12] MEDS: levETIRAcetam 750 MG TABLET GT ×2 (08:56→20:17)
[2023-10-12] MEDS: MULTIVITAMIN 1 TAB TABLET GT (08:56)
[2023-10-12] MEDS: POTASSIUM CHLORIDE 20 MEQ TAB.ER.PRT GT ×2 (08:57→20:17)
[2023-10-12] MEDS: VALPROIC ACID 250 MG/5 ML 1000 MG GT (08:57)
[2023-10-12] MEDS: PANTOPRAZOLE 40 MG GRANPKT.DR GT (08:57)
--- NOTE | 2023-10-12 12:58 | CHAP ---
10:30 AM Visited by spiritual care volunteer Provided prayer for Patient.
--- NOTE | 2023-10-12 20:40 | PD.SAPROG ---
Progress Note - SubAcute DIAGNOSIS (1) Chronic respiratory failure with hypoxia: Status: Chronic Assessment & Plan: Very stable (2) Dependent on ventilator: Status: Chronic Assessment & Plan: not weanable at this juncture (3) Congestive cardiac failure: Status: Chronic Assessment & Plan: Stable on current treatment. No acute exacerbations/decompensation (4) Epilepsy, unspecified, intractable, without status epilepticus: Status: Chronic Assessment & Plan: Stable on current treatment. no recent seizures. (5) Anemia: Status: Chronic Assessment & Plan: stable hematocrit (6) Hypothyroidism, unspecified: Status: Chronic (7) Developmental disorder of scholastic skills, unspecified: Status: Chronic Assessment & Plan: Developmental delay (8) Age-related osteoporosis without current pathological fracture: Status: Chronic Assessment & Plan: On supplements to mitigate osteoporosis (9) Gastrostomy status: Status: Chronic Assessment & Plan: site clean and healthy (10) Tracheostomy status: Status: Chronic Assessment & Plan: site clean SUBJECTIVE Fever:: unchanged (low grade) GI:: none Shortness of Breath:: none GI:: no complaints Pain:: none OBJECTIVE Most recent vital signs: Last Vital Signs Temp 98.0 F 10/12/23 17:29 Pulse 97 10/12/23 20:16 Resp 21 H 10/12/23 17:29 BP 90/58 L 10/12/23 20:16 Pulse Ox 98 10/12/23 17:29 O2 Del Method Mechanical Ventilation 10/12/23 06:00 FiO2 37 10/12/23 12:10 Neurological:: awake Speech:: nods head and appropriate (Sometimes) Answers questions:: sometimes Respiratory:: lungs clear Cardiovascular: RRR Abdomen: soft and nontender Decubitus:: none Tracheostomy:: to ventilator Feeding per:: G tube Complaints:: none ASSESSMENT & PLAN Assessment: Patient with cognitive function deficits. ventilator dependent. No distress. Stable condition. Diagnosis and treatment reviewed. Pt does not tolerate weaning from Ventilator. Family updated in IDT. Pt.'s father is very supportive. Transient increase in leak around gastrostomy site with coffee-ground liquid positive for occult blood. Symptomatic ineffective hence patient transferred to ER 09/15/2023 for evaluation and management. Displacement of G-tube into the pyloric bulb seemed to be causing outflow obstruction which on repositioning and semi-deflating the tube balloon did resolve and pt received back later that night in a stable condition with G I consult. Fever finally resolved after antibiotics. now back to baseline stable status Plan: Current treatment reviewed and continued
[2023-10-13] VITALS (11 sets, daily range): BP systolic 91–123; BP diastolic 58–69; PULSE 78–109; RESP 20–24; TEMP 36.2–36.6; O2SAT 97–100
[2023-10-13] MEDS: IPRATROPIUM/ALBUTEROL 3 ML AMPUL.NEB INH ×4 (00:30→20:07)
[2023-10-13] MEDS: LACTULOSE 10 GM/15 ML SOLUTION GT ×3 (05:07→21:23)
[2023-10-13] MEDS: LEVOTHYROXINE 50 MCG TABLET GT (05:07)
[2023-10-13] MEDS: acetaZOLAMIDE 250 MG TABLET GT ×2 (09:00→20:10)
[2023-10-13] MEDS: BUMETANIDE 1 MG TABLET GT ×2 (09:02→20:10)
[2023-10-13] MEDS: FERROUS SULFATE 220 MG/5 ML ELIXIR 330 MG GT (09:03)
[2023-10-13] MEDS: MULTIVITAMIN 1 TAB TABLET GT (09:05)
[2023-10-13] MEDS: levETIRAcetam 750 MG TABLET GT ×2 (09:05→20:11)
[2023-10-13] MEDS: POTASSIUM CHLORIDE 20 MEQ TAB.ER.PRT GT ×2 (09:06→20:11)
[2023-10-13] MEDS: VALPROIC ACID 250 MG/5 ML 1000 MG GT (09:06)
[2023-10-13] MEDS: PANTOPRAZOLE 40 MG GRANPKT.DR GT (09:06)
--- NOTE | 2023-10-13 16:00 | CHAP ---
11:00 AM Visited by spiritual care volunteer Provided prayer for Patient.
[2023-10-14] VITALS (10 sets, daily range): BP systolic 90–109; BP diastolic 58–70; PULSE 73–108; RESP 20–24; TEMP 36–36.6; O2SAT 94–100
[2023-10-14] MEDS: IPRATROPIUM/ALBUTEROL 3 ML AMPUL.NEB INH ×4 (01:04→19:00)
[2023-10-14] MEDS: LACTULOSE 10 GM/15 ML SOLUTION GT ×3 (05:03→21:30)
[2023-10-14] MEDS: LEVOTHYROXINE 50 MCG TABLET GT (05:03)
[2023-10-14] MEDS: acetaZOLAMIDE 250 MG TABLET GT ×2 (08:51→20:40)
[2023-10-14] MEDS: BUMETANIDE 1 MG TABLET GT ×2 (08:52→20:40)
[2023-10-14] MEDS: levETIRAcetam 750 MG TABLET GT ×2 (08:52→20:40)
[2023-10-14] MEDS: FERROUS SULFATE 220 MG/5 ML ELIXIR 330 MG GT (08:52)
[2023-10-14] MEDS: MULTIVITAMIN 1 TAB TABLET GT (08:53)
[2023-10-14] MEDS: PANTOPRAZOLE 40 MG GRANPKT.DR GT (08:53)
[2023-10-14] MEDS: VALPROIC ACID 250 MG/5 ML 1000 MG GT (08:53)
[2023-10-14] MEDS: POTASSIUM CHLORIDE 20 MEQ TAB.ER.PRT GT ×2 (08:53→20:40)
[2023-10-15] VITALS (12 sets, daily range): BP systolic 100–121; BP diastolic 61–77; PULSE 73–105; RESP 18–32; TEMP 36.2–36.5; O2SAT 97–100
[2023-10-15] MEDS: IPRATROPIUM/ALBUTEROL 3 ML AMPUL.NEB INH ×4 (00:09→18:22)
[2023-10-15] MEDS: LACTULOSE 10 GM/15 ML SOLUTION GT ×2 (05:11→21:50)
[2023-10-15] MEDS: LEVOTHYROXINE 50 MCG TABLET GT (05:11)
[2023-10-15] MEDS: BUMETANIDE 1 MG TABLET GT ×2 (08:50→20:35)
[2023-10-15] MEDS: acetaZOLAMIDE 250 MG TABLET GT ×2 (08:50→20:35)
[2023-10-15] MEDS: FERROUS SULFATE 220 MG/5 ML ELIXIR 330 MG GT (08:51)
[2023-10-15] MEDS: MULTIVITAMIN 1 TAB TABLET GT (08:52)
[2023-10-15] MEDS: levETIRAcetam 750 MG TABLET GT ×2 (08:52→20:36)
[2023-10-15] MEDS: POTASSIUM CHLORIDE 20 MEQ TAB.ER.PRT GT ×2 (08:53→20:37)
[2023-10-15] MEDS: PANTOPRAZOLE 40 MG GRANPKT.DR GT (08:54)
[2023-10-15] MEDS: VALPROIC ACID 250 MG/5 ML 1000 MG GT (08:54)
[2023-10-16] VITALS (10 sets, daily range): BP systolic 98–114; BP diastolic 63–71; PULSE 87–117; RESP 20–33; TEMP 36.3–38.2; O2SAT 97–100
[2023-10-16] MEDS: IPRATROPIUM/ALBUTEROL 3 ML AMPUL.NEB INH ×4 (00:07→19:20)
[2023-10-16] MEDS: LEVOTHYROXINE 50 MCG TABLET GT (05:08)
[2023-10-16] MEDS: LACTULOSE 10 GM/15 ML SOLUTION GT ×3 (05:08→21:20)
[2023-10-16] MEDS: acetaZOLAMIDE 250 MG TABLET GT ×2 (09:12→20:40)
[2023-10-16] MEDS: FERROUS SULFATE 220 MG/5 ML ELIXIR 330 MG GT (09:15)
[2023-10-16] MEDS: BUMETANIDE 1 MG TABLET GT ×2 (09:15→20:40)
[2023-10-16] MEDS: levETIRAcetam 750 MG TABLET GT ×2 (09:16→20:40)
[2023-10-16] MEDS: POTASSIUM CHLORIDE 20 MEQ TAB.ER.PRT GT ×2 (09:16→20:40)
[2023-10-16] MEDS: PANTOPRAZOLE 40 MG GRANPKT.DR GT (09:16)
[2023-10-16] MEDS: MULTIVITAMIN 1 TAB TABLET GT (09:16)
[2023-10-16] MEDS: VALPROIC ACID 250 MG/5 ML 1000 MG GT (09:16)
[2023-10-16] MEDS: ACETAMINOPHEN 325 MG TABLET 650 MG GT (11:40)
--- NOTE | 2023-10-16 22:33 | PD.SAPROG ---
Progress Note - SubAcute DIAGNOSIS (1) Chronic respiratory failure with hypoxia: Status: Chronic Assessment & Plan: stable on O2 supplementation (2) Dependent on ventilator: Status: Chronic Assessment & Plan: pt failed multiple attempts at weaning and comfortable on current settings (3) Congestive cardiac failure: Status: Chronic Assessment & Plan: stable on current treatment (4) Epilepsy, unspecified, intractable, without status epilepticus: Status: Chronic Assessment & Plan: stable on current treatment (5) Anemia: Status: Chronic Assessment & Plan: of chronic illness (6) Hypothyroidism, unspecified: Status: Chronic Assessment & Plan: stable on treatment (7) Developmental disorder of scholastic skills, unspecified: Status: Chronic Assessment & Plan: as part of his developmental disorder and remains stable (8) Age-related osteoporosis without current pathological fracture: Status: Chronic Assessment & Plan: on supplements (9) Gastrostomy status: Status: Chronic Assessment & Plan: clean site (10) Tracheostomy status: Status: Chronic Assessment & Plan: site clean SUBJECTIVE Fever:: unchanged (low grade) GI:: none Shortness of Breath:: none GI:: no complaints Pain:: none OBJECTIVE Most recent vital signs: Last Vital Signs Temp 99.3 F 10/16/23 17:41 Pulse 98 10/16/23 20:40 Resp 26 H 10/16/23 17:41 BP 100/65 10/16/23 20:40 Pulse Ox 97 10/16/23 17:41 O2 Del Method Mechanical Ventilation 10/16/23 05:46 FiO2 38 10/16/23 22:00 Neurological:: awake Speech:: nods head and appropriate (Sometimes) Answers questions:: sometimes Respiratory:: lungs clear Cardiovascular: RRR Abdomen: soft and nontender Decubitus:: none Tracheostomy:: to ventilator Feeding per:: G tube Complaints:: none ASSESSMENT & PLAN Assessment: Patient with cognitive function deficits. ventilator dependent. No distress. Stable condition. Diagnosis and treatment reviewed. Pt does not tolerate weaning from Ventilator. Family updated in IDT. Pt.'s father is very supportive. Transient increase in leak around gastrostomy site with coffee-ground liquid positive for occult blood. Symptomatic ineffective hence patient transferred to ER 09/15/2023 for evaluation and management. Displacement of G-tube into the pyloric bulb seemed to be causing outflow obstruction which on repositioning and semi-deflating the tube balloon did resolve and pt received back later that night in a stable condition with G I consult. Fever finally resolved after antibiotics. now back to baseline stable status. Pt's father involved in pt care and kept informed Plan: Current treatment reviewed and continued
[2023-10-17] VITALS (12 sets, daily range): BP systolic 97–115; BP diastolic 59–74; PULSE 69–105; RESP 21–30; TEMP 35.9–36.3; O2SAT 98–100
[2023-10-17] MEDS: IPRATROPIUM/ALBUTEROL 3 ML AMPUL.NEB INH ×4 (00:40→18:40)
[2023-10-17] MEDS: LACTULOSE 10 GM/15 ML SOLUTION GT ×3 (05:40→22:00)
[2023-10-17] MEDS: LEVOTHYROXINE 50 MCG TABLET GT (05:40)
[2023-10-17] MEDS: acetaZOLAMIDE 250 MG TABLET GT ×2 (09:17→20:22)
[2023-10-17] MEDS: FERROUS SULFATE 220 MG/5 ML ELIXIR 330 MG GT (09:18)
[2023-10-17] MEDS: VALPROIC ACID 250 MG/5 ML 1000 MG GT (09:18)
[2023-10-17] MEDS: BUMETANIDE 1 MG TABLET GT ×2 (09:18→20:22)
[2023-10-17] MEDS: MULTIVITAMIN 1 TAB TABLET GT (09:18)
[2023-10-17] MEDS: levETIRAcetam 750 MG TABLET GT ×2 (09:18→20:23)
[2023-10-17] MEDS: POTASSIUM CHLORIDE 20 MEQ TAB.ER.PRT GT ×2 (09:18→20:24)
[2023-10-18] VITALS (10 sets, daily range): BP systolic 98–113; BP diastolic 60–73; PULSE 73–97; RESP 20–28; TEMP 35.9–36.3; O2SAT 98–100
[2023-10-18] MEDS: IPRATROPIUM/ALBUTEROL 3 ML AMPUL.NEB INH ×4 (00:50→18:45)
[2023-10-18] MEDS: LACTULOSE 10 GM/15 ML SOLUTION GT ×3 (05:47→21:05)
[2023-10-18] MEDS: LEVOTHYROXINE 50 MCG TABLET GT (05:47)
[2023-10-18] MEDS: acetaZOLAMIDE 250 MG TABLET GT ×2 (08:48→21:00)
[2023-10-18] MEDS: BUMETANIDE 1 MG TABLET GT ×2 (08:49→21:00)
[2023-10-18] MEDS: MULTIVITAMIN 1 TAB TABLET GT (08:50)
[2023-10-18] MEDS: CARVEDILOL 3.125 MG TABLET GT (08:50)
[2023-10-18] MEDS: FERROUS SULFATE 220 MG/5 ML ELIXIR 330 MG GT (08:50)
[2023-10-18] MEDS: levETIRAcetam 750 MG TABLET GT ×2 (08:50→21:05)
[2023-10-18] MEDS: PANTOPRAZOLE 40 MG GRANPKT.DR GT (08:50)
[2023-10-18] MEDS: POTASSIUM CHLORIDE 20 MEQ TAB.ER.PRT GT ×2 (08:50→21:05)
[2023-10-18] MEDS: VALPROIC ACID 250 MG/5 ML 1000 MG GT (08:51)
[2023-10-19] VITALS (9 sets, daily range): BP systolic 90–117; BP diastolic 60–75; PULSE 75–103; RESP 20–26; TEMP 36.3–36.6; O2SAT 98–100
[2023-10-19] MEDS: IPRATROPIUM/ALBUTEROL 3 ML AMPUL.NEB INH ×4 (01:10→19:10)
[2023-10-19] MEDS: LEVOTHYROXINE 50 MCG TABLET GT (05:32)
[2023-10-19] MEDS: LACTULOSE 10 GM/15 ML SOLUTION GT ×3 (05:32→21:36)
--- NOTE | 2023-10-19 08:36 | CHAP ---
Patient was visited by a Spiritual Care Volunteer on 10/18/2023 between 0900 and 1300 and received comfort, encouragement and/or prayer.
[2023-10-19] MEDS: acetaZOLAMIDE 250 MG TABLET GT ×2 (08:58→20:45)
[2023-10-19] MEDS: BUMETANIDE 1 MG TABLET GT ×2 (08:59→20:45)
[2023-10-19] MEDS: levETIRAcetam 750 MG TABLET GT ×2 (09:00→20:46)
[2023-10-19] MEDS: FERROUS SULFATE 220 MG/5 ML ELIXIR 330 MG GT (09:00)
[2023-10-19] MEDS: MULTIVITAMIN 1 TAB TABLET GT (09:00)
[2023-10-19] MEDS: PANTOPRAZOLE 40 MG GRANPKT.DR GT (09:00)
[2023-10-19] MEDS: POTASSIUM CHLORIDE 20 MEQ TAB.ER.PRT GT ×2 (09:01→20:47)
[2023-10-19] MEDS: VALPROIC ACID 250 MG/5 ML 1000 MG GT (09:01)
[2023-10-20] VITALS (11 sets, daily range): BP systolic 92–111; BP diastolic 61–74; PULSE 72–87; RESP 20–26; TEMP 36–36.6; O2SAT 98–100
[2023-10-20] MEDS: IPRATROPIUM/ALBUTEROL 3 ML AMPUL.NEB INH ×4 (00:15→20:20)
[2023-10-20] MEDS: LEVOTHYROXINE 50 MCG TABLET GT (05:15)
[2023-10-20] MEDS: LACTULOSE 10 GM/15 ML SOLUTION GT ×3 (05:15→22:00)
--- NOTE | 2023-10-20 08:11 | CHAP ---
Patient was visited by a Spiritual Care Volunteer on 10/19/2023 between 0900 and 1200 and received comfort, encouragement and/or prayer.
[2023-10-20] MEDS: acetaZOLAMIDE 250 MG TABLET GT ×2 (08:48→20:35)
[2023-10-20] MEDS: BUMETANIDE 1 MG TABLET GT ×2 (08:48→20:35)
[2023-10-20] MEDS: FERROUS SULFATE 220 MG/5 ML ELIXIR 330 MG GT (08:50)
[2023-10-20] MEDS: MULTIVITAMIN 1 TAB TABLET GT (08:51)
[2023-10-20] MEDS: levETIRAcetam 750 MG TABLET GT ×2 (08:51→20:35)
[2023-10-20] MEDS: POTASSIUM CHLORIDE 20 MEQ TAB.ER.PRT GT ×2 (08:52→20:35)
[2023-10-20] MEDS: VALPROIC ACID 250 MG/5 ML 1000 MG GT (08:52)
[2023-10-20] MEDS: PANTOPRAZOLE 40 MG GRANPKT.DR GT (08:52)
--- NOTE | 2023-10-20 11:15 | CHAP ---
Patient was visited by Spiritual Care Volunteer who prayed for them. (Volunteer was in the hospital from 09:00-C 11:15)
--- NOTE | 2023-10-20 12:20 | PD.SAPROG ---
Progress Note - SubAcute DIAGNOSIS (1) Chronic respiratory failure with hypoxia: Status: Chronic (2) Dependent on ventilator: Status: Chronic (3) Congestive cardiac failure: Status: Chronic (4) Epilepsy, unspecified, intractable, without status epilepticus: Status: Chronic (5) Anemia: Status: Chronic (6) Hypothyroidism, unspecified: Status: Chronic (7) Developmental disorder of scholastic skills, unspecified: Status: Chronic (8) Age-related osteoporosis without current pathological fracture: Status: Chronic (9) Gastrostomy status: Status: Chronic (10) Tracheostomy status: Status: Chronic SUBJECTIVE Fever:: unchanged (low grade) GI:: none Shortness of Breath:: none GI:: no complaints Pain:: none OBJECTIVE Most recent vital signs: Last Vital Signs Temp 98.5 F 10/24/23 12:00 Pulse 103 H 10/24/23 12:00 Resp 20 10/24/23 12:00 BP 101/57 L 10/24/23 12:00 Pulse Ox 99 10/24/23 11:26 O2 Del Method Mechanical Ventilation 10/24/23 06:00 FiO2 31 10/24/23 11:26 Neurological:: awake Speech:: nods head and appropriate (Sometimes) Answers questions:: sometimes Respiratory:: lungs clear Cardiovascular: RRR Abdomen: soft and nontender Decubitus:: none Tracheostomy:: to ventilator Feeding per:: G tube Complaints:: none ASSESSMENT & PLAN Assessment: Patient with cognitive function deficits. ventilator dependent. No distress. Stable condition. Diagnosis and treatment reviewed. Pt does not tolerate weaning from Ventilator. Family updated in IDT. Pt.'s father is very supportive. Transient increase in leak around gastrostomy site with coffee-ground liquid positive for occult blood. Symptomatic ineffective hence patient transferred to ER 09/15/2023 for evaluation and management. Displacement of G-tube into the pyloric bulb seemed to be causing outflow obstruction which on repositioning and semi-deflating the tube balloon did resolve and pt received back later that night in a stable condition with G I consult. Fever finally resolved after antibiotics. now back to baseline stable status. Pt's father involved in pt care and kept informed Plan: Current treatment reviewed and continued
--- NOTE | 2023-10-20 18:13 | PC.NURSE ---
PATIENT OBSERVED TO BE SLEEPING MORE THAN USUAL DURING THE DAY.
[2023-10-21] VITALS (12 sets, daily range): BP systolic 96–107; BP diastolic 60–68; PULSE 70–97; RESP 20–26; TEMP 36.2–36.8; O2SAT 98–100
[2023-10-21] MEDS: IPRATROPIUM/ALBUTEROL 3 ML AMPUL.NEB INH ×4 (01:32→19:03)
[2023-10-21] MEDS: LACTULOSE 10 GM/15 ML SOLUTION GT ×3 (05:13→22:02)
[2023-10-21] MEDS: LEVOTHYROXINE 50 MCG TABLET GT (05:13)
[2023-10-21] MEDS: acetaZOLAMIDE 250 MG TABLET GT ×2 (08:47→20:44)
[2023-10-21] MEDS: levETIRAcetam 750 MG TABLET GT ×2 (08:48→20:45)
[2023-10-21] MEDS: POTASSIUM CHLORIDE 20 MEQ TAB.ER.PRT GT ×2 (08:49→20:46)
[2023-10-21] MEDS: VALPROIC ACID 250 MG/5 ML 1000 MG GT (08:49)
[2023-10-21] MEDS: FERROUS SULFATE 220 MG/5 ML ELIXIR 330 MG GT (08:50)
[2023-10-21] MEDS: MULTIVITAMIN 1 TAB TABLET GT (08:50)
[2023-10-21] MEDS: PANTOPRAZOLE 40 MG GRANPKT.DR GT (08:50)
[2023-10-21] MEDS: BUMETANIDE 1 MG TABLET GT ×2 (08:51→20:44)
--- NOTE | 2023-10-21 11:15 | CHAP ---
Patient was visited by Spiritual Care Volunteer who prayed for them silently.(Patient sleeping) (Volunteer was in the hospital from 09:00-11:15)
[2023-10-22] VITALS (11 sets, daily range): BP systolic 91–97; BP diastolic 59–64; PULSE 62–94; RESP 20–25; TEMP 36–36.6; O2SAT 98–100
[2023-10-22] MEDS: IPRATROPIUM/ALBUTEROL 3 ML AMPUL.NEB INH ×4 (00:55→18:00)
[2023-10-22] MEDS: LEVOTHYROXINE 50 MCG TABLET GT (05:40)
[2023-10-22] MEDS: LACTULOSE 10 GM/15 ML SOLUTION GT ×3 (05:40→21:43)
[2023-10-22] MEDS: acetaZOLAMIDE 250 MG TABLET GT ×2 (09:33→20:41)
[2023-10-22] MEDS: BUMETANIDE 1 MG TABLET GT ×2 (09:33→20:41)
[2023-10-22] MEDS: levETIRAcetam 750 MG TABLET GT ×2 (09:34→20:41)
[2023-10-22] MEDS: FERROUS SULFATE 220 MG/5 ML ELIXIR 330 MG GT (09:34)
[2023-10-22] MEDS: MULTIVITAMIN 1 TAB TABLET GT (09:34)
[2023-10-22] MEDS: PANTOPRAZOLE 40 MG GRANPKT.DR GT (09:35)
[2023-10-22] MEDS: VALPROIC ACID 250 MG/5 ML 1000 MG GT (09:35)
[2023-10-22] MEDS: POTASSIUM CHLORIDE 20 MEQ TAB.ER.PRT GT ×2 (09:35→20:41)
--- NOTE | 2023-10-22 10:36 | PC.SS ---
Room visit: Resident is laying in bed with head of the bed elevated with call light properly placed with no signs of distress. Resident is conserved by his father Jeremi Javier and is a [facility] client. Resident has no changes in care or condition, he has trach in place on vent and GT in place for medication and nutrition. Resident is unable to make needs known, he will remain in current care and will continue to have all subacute care needs met by staff.
--- NOTE | 2023-10-22 11:15 | CHAP ---
Patient visited by the Spiritual Care Voluinteer who prayed for them. (Spiritual Care Volunteer was in hospital from c9:00-11:15)
[2023-10-23] VITALS (11 sets, daily range): BP systolic 75–117; BP diastolic 49–76; PULSE 62–91; RESP 20–30; TEMP 36.3–36.9; O2SAT 98–99
[2023-10-23] MEDS: IPRATROPIUM/ALBUTEROL 3 ML AMPUL.NEB INH ×4 (00:05→19:20)
[2023-10-23] MEDS: LACTULOSE 10 GM/15 ML SOLUTION GT ×3 (06:01→21:35)
[2023-10-23] MEDS: LEVOTHYROXINE 50 MCG TABLET GT (06:01)
[2023-10-23] MEDS: acetaZOLAMIDE 250 MG TABLET GT ×2 (08:33→20:37)
[2023-10-23] MEDS: BUMETANIDE 1 MG TABLET GT ×2 (08:34→20:37)
[2023-10-23] MEDS: FERROUS SULFATE 220 MG/5 ML ELIXIR 330 MG GT (08:35)
[2023-10-23] MEDS: levETIRAcetam 750 MG TABLET GT ×2 (08:35→20:37)
[2023-10-23] MEDS: MULTIVITAMIN 1 TAB TABLET GT (08:35)
[2023-10-23] MEDS: PANTOPRAZOLE 40 MG GRANPKT.DR GT (08:36)
[2023-10-23] MEDS: POTASSIUM CHLORIDE 20 MEQ TAB.ER.PRT GT ×2 (08:36→20:38)
[2023-10-23] MEDS: VALPROIC ACID 250 MG/5 ML 1000 MG GT (08:37)
[2023-10-24] VITALS (10 sets, daily range): BP systolic 101–122; BP diastolic 57–70; PULSE 68–103; RESP 20–26; TEMP 36.2–37; O2SAT 97–99
[2023-10-24] MEDS: IPRATROPIUM/ALBUTEROL 3 ML AMPUL.NEB INH ×4 (00:50→19:28)
[2023-10-24] MEDS: LEVOTHYROXINE 50 MCG TABLET GT (05:12)
[2023-10-24] MEDS: LACTULOSE 10 GM/15 ML SOLUTION GT ×3 (05:12→21:28)
[2023-10-24] MEDS: acetaZOLAMIDE 250 MG TABLET GT ×2 (08:47→20:38)
[2023-10-24] MEDS: BUMETANIDE 1 MG TABLET GT ×2 (08:48→20:39)
[2023-10-24] MEDS: FERROUS SULFATE 220 MG/5 ML ELIXIR 330 MG GT (08:48)
[2023-10-24] MEDS: levETIRAcetam 750 MG TABLET GT ×2 (08:48→20:39)
[2023-10-24] MEDS: MULTIVITAMIN 1 TAB TABLET GT (08:48)
[2023-10-24] MEDS: POTASSIUM CHLORIDE 20 MEQ TAB.ER.PRT GT ×2 (08:49→20:39)
[2023-10-24] MEDS: VALPROIC ACID 250 MG/5 ML 1000 MG GT (08:49)
[2023-10-24] MEDS: PANTOPRAZOLE 40 MG GRANPKT.DR GT (08:49)
[2023-10-25] VITALS (10 sets, daily range): BP systolic 92–110; BP diastolic 51–67; PULSE 73–105; RESP 20–26; TEMP 36.7–36.8; O2SAT 97–99
[2023-10-25] MEDS: IPRATROPIUM/ALBUTEROL 3 ML AMPUL.NEB INH ×4 (01:26→18:20)
[2023-10-25] MEDS: LACTULOSE 10 GM/15 ML SOLUTION GT ×2 (05:31→21:44)
[2023-10-25] MEDS: LEVOTHYROXINE 50 MCG TABLET GT (05:31)
[2023-10-25] MEDS: acetaZOLAMIDE 250 MG TABLET GT ×2 (08:53→20:53)
[2023-10-25] MEDS: BUMETANIDE 1 MG TABLET GT ×2 (08:54→20:53)
[2023-10-25] MEDS: CARVEDILOL 3.125 MG TABLET GT (08:55)
[2023-10-25] MEDS: FERROUS SULFATE 220 MG/5 ML ELIXIR 330 MG GT (08:56)
[2023-10-25] MEDS: levETIRAcetam 750 MG TABLET GT ×2 (08:56→20:53)
[2023-10-25] MEDS: POTASSIUM CHLORIDE 20 MEQ TAB.ER.PRT GT ×2 (08:57→20:54)
[2023-10-25] MEDS: PANTOPRAZOLE 40 MG GRANPKT.DR GT (08:57)
[2023-10-25] MEDS: MULTIVITAMIN 1 TAB TABLET GT (08:57)
[2023-10-25] MEDS: VALPROIC ACID 250 MG/5 ML 1000 MG GT (08:58)
[2023-10-25] MEDS: ACETAMINOPHEN 325 MG TABLET 650 MG GT (10:16)
[2023-10-25] MEDS: guaiFENesin Liq 100 MG/5 ML LIQUID 300 MG GT (11:14)
[2023-10-25] MEDS: MAGNESIUM HYDROXIDE 30 ML ORAL SUSP ML GT (12:47)
[2023-10-26] VITALS (8 sets, daily range): BP systolic 96–114; BP diastolic 56–66; PULSE 73–90; RESP 20–28; TEMP 36.1; O2SAT 97–98
[2023-10-26] MEDS: IPRATROPIUM/ALBUTEROL 3 ML AMPUL.NEB INH ×4 (00:05→19:05)
[2023-10-26] MEDS: LACTULOSE 10 GM/15 ML SOLUTION GT ×3 (05:15→21:20)
[2023-10-26] MEDS: LEVOTHYROXINE 50 MCG TABLET GT (05:15)
--- NOTE | 2023-10-26 08:12 | CHAP ---
Patient was visited by a Spiritual Care volunteer on 10/25/2023 between 1230 and 1400 and received comfort, encouragement and/or prayer.
[2023-10-26] MEDS: acetaZOLAMIDE 250 MG TABLET GT ×2 (08:37→20:48)
[2023-10-26] MEDS: MULTIVITAMIN 1 TAB TABLET GT (08:41)
[2023-10-26] MEDS: levETIRAcetam 750 MG TABLET GT ×2 (08:41→20:49)
[2023-10-26] MEDS: FERROUS SULFATE 220 MG/5 ML ELIXIR 330 MG GT (08:41)
[2023-10-26] MEDS: POTASSIUM CHLORIDE 20 MEQ TAB.ER.PRT GT ×2 (08:42→20:49)
[2023-10-26] MEDS: PANTOPRAZOLE 40 MG GRANPKT.DR GT (08:42)
[2023-10-26] MEDS: BUMETANIDE 1 MG TABLET GT ×2 (08:44→20:48)
[2023-10-26] MEDS: VALPROIC ACID 250 MG/5 ML 1000 MG GT (08:46)
--- NOTE | 2023-10-26 21:05 | PD.SAPROG ---
Progress Note - SubAcute DIAGNOSIS (1) Chronic respiratory failure with hypoxia: Status: Chronic (2) Dependent on ventilator: Status: Chronic (3) Congestive cardiac failure: Status: Chronic (4) Epilepsy, unspecified, intractable, without status epilepticus: Status: Chronic (5) Anemia: Status: Chronic (6) Hypothyroidism, unspecified: Status: Chronic (7) Developmental disorder of scholastic skills, unspecified: Status: Chronic (8) Age-related osteoporosis without current pathological fracture: Status: Chronic (9) Gastrostomy status: Status: Chronic (10) Tracheostomy status: Status: Chronic SUBJECTIVE Fever:: unchanged (low grade) GI:: none Shortness of Breath:: none GI:: no complaints Pain:: none OBJECTIVE Most recent vital signs: Last Vital Signs Temp 96.9 F 10/26/23 05:38 Pulse 73 10/26/23 20:48 Resp 20 10/26/23 11:44 BP 96/56 L 10/26/23 20:48 Pulse Ox 98 10/26/23 11:44 O2 Del Method Mechanical Ventilation 10/25/23 06:00 FiO2 31 10/26/23 11:44 Neurological:: awake Speech:: nods head and appropriate (Sometimes) Answers questions:: sometimes Respiratory:: lungs clear Cardiovascular: RRR Abdomen: soft and nontender Decubitus:: none Tracheostomy:: to ventilator Feeding per:: G tube Complaints:: none ASSESSMENT & PLAN Assessment: Patient with cognitive function deficits. ventilator dependent. No distress. Stable condition. Diagnosis and treatment reviewed. Pt does not tolerate weaning from Ventilator. Family updated in IDT. Pt.'s father is very supportive. Transient increase in leak around gastrostomy site with coffee-ground liquid positive for occult blood. Symptomatic ineffective hence patient transferred to ER 09/15/2023 for evaluation and management. Displacement of G-tube into the pyloric bulb seemed to be causing outflow obstruction which on repositioning and semi-deflating the tube balloon did resolve and pt received back later that night in a stable condition with G I consult. Fever finally resolved after antibiotics. now back to baseline stable status. Pt's father involved in pt care and kept informed. No new issues Plan: Current treatment reviewed and continued
[2023-10-27] VITALS (11 sets, daily range): BP systolic 96–120; BP diastolic 63–72; PULSE 71–95; RESP 20–28; TEMP 36.2–37.1; O2SAT 96–99
[2023-10-27] MEDS: IPRATROPIUM/ALBUTEROL 3 ML AMPUL.NEB INH ×4 (00:40→18:20)
[2023-10-27] MEDS: LACTULOSE 10 GM/15 ML SOLUTION GT ×3 (05:07→22:00)
[2023-10-27] MEDS: LEVOTHYROXINE 50 MCG TABLET GT (05:07)
[2023-10-27 08:07] LABS: Thyroid Stimulating Hormone 1.56 uIU/mL (0.55-4.78)
--- NOTE | 2023-10-27 08:23 | CHAP ---
Patient was visited by a Spiritual Care Volunteer on 10/26/2023 between 1130 and 1210 and received encouragement and/or prayer.
[2023-10-27] MEDS: CARVEDILOL 3.125 MG TABLET GT (08:51)
[2023-10-27] MEDS: BUMETANIDE 1 MG TABLET GT ×2 (08:51→20:43)
[2023-10-27] MEDS: acetaZOLAMIDE 250 MG TABLET GT ×2 (08:51→20:43)
[2023-10-27] MEDS: levETIRAcetam 750 MG TABLET GT ×2 (08:52→20:43)
[2023-10-27] MEDS: FERROUS SULFATE 220 MG/5 ML ELIXIR 330 MG GT (08:52)
[2023-10-27] MEDS: MULTIVITAMIN 1 TAB TABLET GT (08:53)
[2023-10-27] MEDS: PANTOPRAZOLE 40 MG GRANPKT.DR GT (08:53)
[2023-10-27] MEDS: POTASSIUM CHLORIDE 20 MEQ TAB.ER.PRT GT ×2 (08:54→20:44)
[2023-10-27] MEDS: VALPROIC ACID 250 MG/5 ML 1000 MG GT (09:03)
--- NOTE | 2023-10-27 11:22 | PC.SS ---
Resident received unannounced visit from counselor Georgi Zamora from [facility]. Resident is well groomed, he is laying in bed with head of the bed elevated with call light properly placed with no signs of distress.
[2023-10-27] MEDS: guaiFENesin Liq 100 MG/5 ML LIQUID 300 MG GT (13:05)
--- NOTE | 2023-10-27 13:12 | CHAP ---
10:00 AM Visited by spiritual care volunteer Provided prayer for Patient.
[2023-10-28] VITALS (11 sets, daily range): BP systolic 90–113; BP diastolic 50–73; PULSE 64–89; RESP 20–28; TEMP 36.3–37; O2SAT 96–99
[2023-10-28] MEDS: IPRATROPIUM/ALBUTEROL 3 ML AMPUL.NEB INH ×4 (00:30→18:24)
[2023-10-28] MEDS: LACTULOSE 10 GM/15 ML SOLUTION GT ×2 (06:09→22:27)
[2023-10-28] MEDS: LEVOTHYROXINE 50 MCG TABLET GT (06:09)
[2023-10-28] MEDS: acetaZOLAMIDE 250 MG TABLET GT ×2 (08:33→20:20)
[2023-10-28] MEDS: BUMETANIDE 1 MG TABLET GT ×2 (08:33→20:20)
[2023-10-28] MEDS: MULTIVITAMIN 1 TAB TABLET GT (08:34)
[2023-10-28] MEDS: PANTOPRAZOLE 40 MG GRANPKT.DR GT (08:34)
[2023-10-28] MEDS: levETIRAcetam 750 MG TABLET GT ×2 (08:34→20:20)
[2023-10-28] MEDS: FERROUS SULFATE 220 MG/5 ML ELIXIR 330 MG GT (08:34)
[2023-10-28] MEDS: VALPROIC ACID 250 MG/5 ML 1000 MG GT (08:35)
[2023-10-28] MEDS: POTASSIUM CHLORIDE 20 MEQ TAB.ER.PRT GT ×2 (08:35→20:20)
[2023-10-28] MEDS: guaiFENesin Liq 100 MG/5 ML LIQUID 300 MG GT (08:37)
[2023-10-29] VITALS (11 sets, daily range): BP systolic 92–120; BP diastolic 57–74; PULSE 63–88; RESP 20–26; TEMP 36.1–36.9; O2SAT 97–100
[2023-10-29] MEDS: IPRATROPIUM/ALBUTEROL 3 ML AMPUL.NEB INH ×4 (01:30→19:15)
[2023-10-29] MEDS: LEVOTHYROXINE 50 MCG TABLET GT (05:22)
[2023-10-29] MEDS: LACTULOSE 10 GM/15 ML SOLUTION GT ×3 (05:22→21:40)
[2023-10-29] MEDS: BUMETANIDE 1 MG TABLET GT ×2 (08:32→20:52)
[2023-10-29] MEDS: acetaZOLAMIDE 250 MG TABLET GT ×2 (08:32→20:52)
[2023-10-29] MEDS: levETIRAcetam 750 MG TABLET GT ×2 (08:33→20:52)
[2023-10-29] MEDS: CARVEDILOL 3.125 MG TABLET GT (08:33)
[2023-10-29] MEDS: MULTIVITAMIN 1 TAB TABLET GT (08:33)
[2023-10-29] MEDS: FERROUS SULFATE 220 MG/5 ML ELIXIR 330 MG GT (08:33)
[2023-10-29] MEDS: POTASSIUM CHLORIDE 20 MEQ TAB.ER.PRT GT ×2 (08:34→20:53)
[2023-10-29] MEDS: PANTOPRAZOLE 40 MG GRANPKT.DR GT (08:34)
[2023-10-29] MEDS: VALPROIC ACID 250 MG/5 ML 1000 MG GT (08:34)
[2023-10-29] MEDS: guaiFENesin Liq 100 MG/5 ML LIQUID 300 MG GT (08:34)
--- NOTE | 2023-10-29 15:44 | PC.SS ---
Room change: Resident was moved from room 105 in to room 107 due to noise appearing to bother him. Resident RP Jeremi Javier notified of room change. No questions or concerns, resident will be monitored for any changes in mood and behavior related to room change.
--- NOTE | 2023-10-29 15:46 | PC.SS ---
Room visit: Resident is laying in bed with head of the bed elevated with call light properly placed with no signs of distress. Resident remains conserved by his father Jeremi Javier and is a [facility] client. Resident remains on ventilator with trach in place and GT in place for medication and nutrition. Resident is total care no speech unable to make needs known. Resident will remain in current care and will continue to have all subacute care needs met by staff. Resident to be monitored for changes in mood and behavior.
[2023-10-30] VITALS (8 sets, daily range): BP systolic 102–127; BP diastolic 60–72; PULSE 55–86; RESP 20–24; TEMP 36–37.1; O2SAT 98–99
[2023-10-30] MEDS: LACTULOSE 10 GM/15 ML SOLUTION GT ×3 (05:20→22:00)
[2023-10-30] MEDS: LEVOTHYROXINE 50 MCG TABLET GT (05:20)
[2023-10-30] MEDS: IPRATROPIUM/ALBUTEROL 3 ML AMPUL.NEB INH ×3 (06:46→19:20)
[2023-10-30] MEDS: acetaZOLAMIDE 250 MG TABLET GT ×2 (08:47→20:55)
[2023-10-30] MEDS: FERROUS SULFATE 220 MG/5 ML ELIXIR 330 MG GT (08:48)
[2023-10-30] MEDS: levETIRAcetam 750 MG TABLET GT ×2 (08:48→20:56)
[2023-10-30] MEDS: PANTOPRAZOLE 40 MG GRANPKT.DR GT (08:48)
[2023-10-30] MEDS: CARVEDILOL 3.125 MG TABLET GT (08:48)
[2023-10-30] MEDS: BUMETANIDE 1 MG TABLET GT ×2 (08:48→20:55)
[2023-10-30] MEDS: MULTIVITAMIN 1 TAB TABLET GT (08:48)
[2023-10-30] MEDS: POTASSIUM CHLORIDE 20 MEQ TAB.ER.PRT GT ×2 (08:49→20:56)
[2023-10-30] MEDS: VALPROIC ACID 250 MG/5 ML 1000 MG GT (08:49)
--- NOTE | 2023-10-30 21:33 | PD.SAPROG ---
Progress Note - SubAcute DIAGNOSIS (1) Chronic respiratory failure with hypoxia: Status: Chronic (2) Dependent on ventilator: Status: Chronic (3) Congestive cardiac failure: Status: Chronic (4) Epilepsy, unspecified, intractable, without status epilepticus: Status: Chronic (5) Anemia: Status: Chronic (6) Hypothyroidism, unspecified: Status: Chronic (7) Developmental disorder of scholastic skills, unspecified: Status: Chronic (8) Age-related osteoporosis without current pathological fracture: Status: Chronic (9) Gastrostomy status: Status: Chronic (10) Tracheostomy status: Status: Chronic SUBJECTIVE Fever:: unchanged (low grade) GI:: none Shortness of Breath:: none GI:: no complaints Pain:: none OBJECTIVE Most recent vital signs: Last Vital Signs Temp 98.0 F 10/30/23 17:41 Pulse 67 10/30/23 20:55 Resp 20 10/30/23 17:41 BP 109/72 10/30/23 20:55 Pulse Ox 98 10/30/23 17:41 O2 Del Method Mechanical Ventilation 10/29/23 17:22 FiO2 32 10/30/23 10:00 Neurological:: awake Speech:: nods head and appropriate (Sometimes) Answers questions:: sometimes Respiratory:: lungs clear Cardiovascular: RRR Abdomen: soft and nontender Decubitus:: none Tracheostomy:: to ventilator Feeding per:: G tube Complaints:: none ASSESSMENT & PLAN Assessment: Patient with cognitive function deficits. ventilator dependent. No distress. Stable condition. Diagnosis and treatment reviewed. Pt does not tolerate weaning from Ventilator. Family updated in IDT. Pt.'s father is very supportive. Transient increase in leak around gastrostomy site with coffee-ground liquid positive for occult blood. Symptomatic ineffective hence patient transferred to ER 09/15/2023 for evaluation and management. Displacement of G-tube into the pyloric bulb seemed to be causing outflow obstruction which on repositioning and semi-deflating the tube balloon did resolve and pt received back later that night in a stable condition with G I consult. Fever finally resolved after antibiotics. now back to baseline stable status. Pt's father involved in pt care and kept informed. No new issues Plan: Current treatment reviewed and continued
[2023-10-31] VITALS (10 sets, daily range): BP systolic 99–117; BP diastolic 60–71; PULSE 62–92; RESP 16–29; TEMP 36.1–36.9; O2SAT 97–100
[2023-10-31] MEDS: IPRATROPIUM/ALBUTEROL 3 ML AMPUL.NEB INH ×4 (00:45→18:40)
[2023-10-31] MEDS: LEVOTHYROXINE 50 MCG TABLET GT (05:19)
[2023-10-31] MEDS: LACTULOSE 10 GM/15 ML SOLUTION GT ×3 (05:19→21:08)
[2023-10-31] MEDS: FERROUS SULFATE 220 MG/5 ML ELIXIR 330 MG GT (09:19)
[2023-10-31] MEDS: BUMETANIDE 1 MG TABLET GT ×2 (09:19→21:07)
[2023-10-31] MEDS: acetaZOLAMIDE 250 MG TABLET GT ×2 (09:19→21:06)
[2023-10-31] MEDS: levETIRAcetam 750 MG TABLET GT ×2 (09:19→21:03)
[2023-10-31] MEDS: POTASSIUM CHLORIDE 20 MEQ TAB.ER.PRT GT ×2 (09:20→21:08)
[2023-10-31] MEDS: VALPROIC ACID 250 MG/5 ML 1000 MG GT (09:20)
[2023-10-31] MEDS: MULTIVITAMIN 1 TAB TABLET GT (09:20)
[2023-10-31] MEDS: PANTOPRAZOLE 40 MG GRANPKT.DR GT (09:20)
[2023-10-31] MEDS: LOSARTAN 25 MG TABLET GT (21:07)
[2023-11-01] VITALS (11 sets, daily range): BP systolic 90–135; BP diastolic 58–74; PULSE 65–101; RESP 20–26; TEMP 36.4–37.6; O2SAT 98–99
[2023-11-01] MEDS: IPRATROPIUM/ALBUTEROL 3 ML AMPUL.NEB INH ×4 (01:00→18:40)
[2023-11-01] MEDS: LACTULOSE 10 GM/15 ML SOLUTION GT ×3 (05:01→21:05)
[2023-11-01] MEDS: LEVOTHYROXINE 50 MCG TABLET GT (05:01)
[2023-11-01] MEDS: BUMETANIDE 1 MG TABLET GT ×2 (09:20→20:44)
[2023-11-01] MEDS: acetaZOLAMIDE 250 MG TABLET GT ×2 (09:20→20:44)
[2023-11-01] MEDS: MULTIVITAMIN 1 TAB TABLET GT (09:21)
[2023-11-01] MEDS: levETIRAcetam 750 MG TABLET GT ×2 (09:21→20:45)
[2023-11-01] MEDS: FERROUS SULFATE 220 MG/5 ML ELIXIR 330 MG GT (09:21)
[2023-11-01] MEDS: VALPROIC ACID 250 MG/5 ML 1000 MG GT (09:22)
[2023-11-01] MEDS: PANTOPRAZOLE 40 MG GRANPKT.DR GT (09:22)
[2023-11-01] MEDS: POTASSIUM CHLORIDE 20 MEQ TAB.ER.PRT GT ×2 (09:22→20:45)
[2023-11-02] VITALS (10 sets, daily range): BP systolic 103–114; BP diastolic 63–67; PULSE 71–105; RESP 21–31; TEMP 36.1–37; O2SAT 97–99
[2023-11-02] MEDS: IPRATROPIUM/ALBUTEROL 3 ML AMPUL.NEB INH ×4 (00:10→21:20)
[2023-11-02] MEDS: LACTULOSE 10 GM/15 ML SOLUTION GT ×3 (06:08→21:40)
[2023-11-02] MEDS: LEVOTHYROXINE 50 MCG TABLET GT (06:08)
[2023-11-02] MEDS: acetaZOLAMIDE 250 MG TABLET GT ×2 (09:41→20:52)
[2023-11-02] MEDS: BUMETANIDE 1 MG TABLET GT ×2 (09:42→20:52)
[2023-11-02] MEDS: FERROUS SULFATE 220 MG/5 ML ELIXIR 330 MG GT (09:42)
[2023-11-02] MEDS: CARVEDILOL 3.125 MG TABLET GT (09:42)
[2023-11-02] MEDS: levETIRAcetam 750 MG TABLET GT ×2 (09:48→20:52)
[2023-11-02] MEDS: MULTIVITAMIN 1 TAB TABLET GT (09:48)
[2023-11-02] MEDS: PANTOPRAZOLE 40 MG GRANPKT.DR GT (09:49)
[2023-11-02] MEDS: POTASSIUM CHLORIDE 20 MEQ TAB.ER.PRT GT ×2 (09:49→20:53)
[2023-11-02] MEDS: VALPROIC ACID 250 MG/5 ML 1000 MG GT (09:50)
[2023-11-03] VITALS (10 sets, daily range): BP systolic 94–116; BP diastolic 60–71; PULSE 56–109; RESP 20–40; TEMP 36.1–38.7; O2SAT 95–100
[2023-11-03] MEDS: IPRATROPIUM/ALBUTEROL 3 ML AMPUL.NEB INH ×4 (00:10→18:25)
[2023-11-03] MEDS: LACTULOSE 10 GM/15 ML SOLUTION GT ×3 (05:16→21:27)
[2023-11-03] MEDS: LEVOTHYROXINE 50 MCG TABLET GT (05:17)
[2023-11-03] MEDS: acetaZOLAMIDE 250 MG TABLET GT ×2 (08:40→20:37)
[2023-11-03] MEDS: FERROUS SULFATE 220 MG/5 ML ELIXIR 330 MG GT (08:41)
[2023-11-03] MEDS: BUMETANIDE 1 MG TABLET GT ×2 (08:41→20:37)
[2023-11-03] MEDS: CARVEDILOL 3.125 MG TABLET GT (08:41)
[2023-11-03] MEDS: levETIRAcetam 750 MG TABLET GT ×2 (08:42→20:37)
[2023-11-03] MEDS: PANTOPRAZOLE 40 MG GRANPKT.DR GT (08:43)
[2023-11-03] MEDS: MULTIVITAMIN 1 TAB TABLET GT (08:43)
[2023-11-03] MEDS: POTASSIUM CHLORIDE 20 MEQ TAB.ER.PRT GT ×2 (08:44→20:38)
[2023-11-03] MEDS: VALPROIC ACID 250 MG/5 ML 1000 MG GT (08:45)
--- NOTE | 2023-11-03 18:28 | PC.NURSE ---
Nurse Hastings reported resident with fever 101.5 at this time. Cooling measures initiated. Tylenol will be given. Will hand off report to EVAN Gonzales.
[2023-11-03] MEDS: ACETAMINOPHEN 325 MG TABLET 650 MG GT (18:40)
--- NOTE | 2023-11-03 20:00 | PC.NURSE ---
RESIDENT RECTAL TEMP AT THIS TIME 99.4. NO DISTRESS/DISCOMFORT NOTED. BP 98/62 HR 101. NO NEW ORDERS PER CHARGE NURSE AT THIS TIME.
--- NOTE | 2023-11-03 22:13 | PD.SAPROG ---
Progress Note - SubAcute DIAGNOSIS (1) Chronic respiratory failure with hypoxia: Status: Chronic (2) Dependent on ventilator: Status: Chronic (3) Congestive cardiac failure: Status: Chronic (4) Epilepsy, unspecified, intractable, without status epilepticus: Status: Chronic (5) Anemia: Status: Chronic (6) Hypothyroidism, unspecified: Status: Chronic (7) Developmental disorder of scholastic skills, unspecified: Status: Chronic (8) Age-related osteoporosis without current pathological fracture: Status: Chronic (9) Gastrostomy status: Status: Chronic (10) Tracheostomy status: Status: Chronic SUBJECTIVE Fever:: unchanged (low grade) GI:: none Shortness of Breath:: none GI:: no complaints Pain:: none OBJECTIVE Most recent vital signs: Last Vital Signs Temp 101.6 F H 11/03/23 18:40 Pulse 101 H 11/03/23 20:37 Resp 24 H 11/03/23 18:25 BP 98/62 11/03/23 20:37 Pulse Ox 100 11/03/23 18:25 O2 Del Method Mechanical Ventilation 11/03/23 12:00 FiO2 35 11/03/23 18:25 Neurological:: awake Speech:: nods head and appropriate (Sometimes) Answers questions:: sometimes Respiratory:: lungs clear Cardiovascular: RRR Abdomen: soft and nontender Decubitus:: none Tracheostomy:: to ventilator Feeding per:: G tube Complaints:: none ASSESSMENT & PLAN Assessment: Patient with cognitive function deficits. ventilator dependent. No distress. Stable condition. Diagnosis and treatment reviewed. Pt does not tolerate weaning from Ventilator. Family updated in IDT. Pt.'s father is very supportive. Transient increase in leak around gastrostomy site with coffee-ground liquid positive for occult blood. Symptomatic ineffective hence patient transferred to ER 09/15/2023 for evaluation and management. Displacement of G-tube into the pyloric bulb seemed to be causing outflow obstruction which on repositioning and semi-deflating the tube balloon did resolve and pt received back later that night in a stable condition with G I consult. Fever finally resolved after antibiotics. now back to baseline stable status. Pt's father involved in pt care and kept informed. No new issues Plan: Current treatment reviewed and continued
[2023-11-04] VITALS (10 sets, daily range): BP systolic 101–138; BP diastolic 58–70; PULSE 62–91; RESP 20–26; TEMP 36.3–37.2; O2SAT 93–100
[2023-11-04] MEDS: IPRATROPIUM/ALBUTEROL 3 ML AMPUL.NEB INH ×4 (00:05→18:28)
[2023-11-04] MEDS: LACTULOSE 10 GM/15 ML SOLUTION GT ×3 (05:20→21:21)
[2023-11-04] MEDS: LEVOTHYROXINE 50 MCG TABLET GT (05:20)
[2023-11-04] MEDS: acetaZOLAMIDE 250 MG TABLET GT ×2 (08:56→20:10)
[2023-11-04] MEDS: FERROUS SULFATE 220 MG/5 ML ELIXIR 330 MG GT (08:57)
[2023-11-04] MEDS: CARVEDILOL 3.125 MG TABLET GT (08:57)
[2023-11-04] MEDS: BUMETANIDE 1 MG TABLET GT ×2 (08:57→20:10)
[2023-11-04] MEDS: levETIRAcetam 750 MG TABLET GT ×2 (09:00→20:10)
[2023-11-04] MEDS: PANTOPRAZOLE 40 MG GRANPKT.DR GT (09:00)
[2023-11-04] MEDS: MULTIVITAMIN 1 TAB TABLET GT (09:00)
[2023-11-04] MEDS: POTASSIUM CHLORIDE 20 MEQ TAB.ER.PRT GT ×2 (09:01→20:11)
[2023-11-04] MEDS: VALPROIC ACID 250 MG/5 ML 1000 MG GT (09:01)
[2023-11-04] MEDS: LOSARTAN 25 MG TABLET GT (20:10)
[2023-11-05] VITALS (10 sets, daily range): BP systolic 90–109; BP diastolic 56–73; PULSE 76–88; RESP 20–24; TEMP 36.1–36.6; O2SAT 97–100
[2023-11-05] MEDS: IPRATROPIUM/ALBUTEROL 3 ML AMPUL.NEB INH ×4 (00:17→19:33)
[2023-11-05] MEDS: LEVOTHYROXINE 50 MCG TABLET GT (06:00)
[2023-11-05] MEDS: LACTULOSE 10 GM/15 ML SOLUTION GT ×3 (06:00→22:15)
[2023-11-05] MEDS: acetaZOLAMIDE 250 MG TABLET GT ×2 (09:06→20:50)
[2023-11-05] MEDS: BUMETANIDE 1 MG TABLET GT ×2 (09:07→20:50)
[2023-11-05] MEDS: FERROUS SULFATE 220 MG/5 ML ELIXIR 330 MG GT (09:09)
[2023-11-05] MEDS: MULTIVITAMIN 1 TAB TABLET GT (09:09)
[2023-11-05] MEDS: PANTOPRAZOLE 40 MG GRANPKT.DR GT (09:09)
[2023-11-05] MEDS: levETIRAcetam 750 MG TABLET GT ×2 (09:09→20:50)
[2023-11-05] MEDS: POTASSIUM CHLORIDE 20 MEQ TAB.ER.PRT GT ×2 (09:10→20:50)
[2023-11-05] MEDS: VALPROIC ACID 250 MG/5 ML 1000 MG GT (09:10)
--- NOTE | 2023-11-05 14:02 | PC.SS ---
Room visit: Resident is laying in bed with head of the bed elevated with call light properly placed with no signs of distress. Resident remains on vent with trach in place and GT for medication and nutrition. Resident is conserved by his father Jeremi Javier, he is a [facility] client. Resident is unable to make needs known, his father Jeremi makes all medical decisions. Resident will remain in current care and will continue to have all subacute care needs met by staff.
[2023-11-06] VITALS (11 sets, daily range): BP systolic 97–134; BP diastolic 41–85; PULSE 76–102; RESP 20–25; TEMP 36–36.4; O2SAT 97–100
[2023-11-06] MEDS: IPRATROPIUM/ALBUTEROL 3 ML AMPUL.NEB INH ×4 (00:24→19:45)
[2023-11-06] MEDS: LEVOTHYROXINE 50 MCG TABLET GT (05:38)
[2023-11-06] MEDS: LACTULOSE 10 GM/15 ML SOLUTION GT ×2 (05:38→21:26)
[2023-11-06] MEDS: acetaZOLAMIDE 250 MG TABLET GT ×2 (08:40→21:26)
[2023-11-06] MEDS: BUMETANIDE 1 MG TABLET GT ×2 (08:42→21:26)
[2023-11-06] MEDS: FERROUS SULFATE 220 MG/5 ML ELIXIR 330 MG GT (08:42)
[2023-11-06] MEDS: MULTIVITAMIN 1 TAB TABLET GT (08:43)
[2023-11-06] MEDS: levETIRAcetam 750 MG TABLET GT ×2 (08:43→21:28)
[2023-11-06] MEDS: VALPROIC ACID 250 MG/5 ML 1000 MG GT (08:44)
[2023-11-06] MEDS: POTASSIUM CHLORIDE 20 MEQ TAB.ER.PRT GT ×2 (08:44→21:28)
[2023-11-06] MEDS: PANTOPRAZOLE 40 MG GRANPKT.DR GT (08:44)
[2023-11-07] VITALS (10 sets, daily range): BP systolic 98–153; BP diastolic 57–82; PULSE 66–102; RESP 18–25; TEMP 36.1–36.8; O2SAT 97–100
[2023-11-07] MEDS: IPRATROPIUM/ALBUTEROL 3 ML AMPUL.NEB INH ×4 (00:02→18:34)
[2023-11-07] MEDS: LACTULOSE 10 GM/15 ML SOLUTION GT ×3 (05:21→21:11)
[2023-11-07] MEDS: LEVOTHYROXINE 50 MCG TABLET GT (05:21)
[2023-11-07] MEDS: acetaZOLAMIDE 250 MG TABLET GT ×2 (09:27→20:22)
[2023-11-07] MEDS: BUMETANIDE 1 MG TABLET GT ×2 (09:28→20:22)
[2023-11-07] MEDS: POTASSIUM CHLORIDE 20 MEQ TAB.ER.PRT GT ×2 (09:30→20:23)
[2023-11-07] MEDS: VALPROIC ACID 250 MG/5 ML 1000 MG GT (09:30)
[2023-11-07] MEDS: levETIRAcetam 750 MG TABLET GT ×2 (09:30→20:23)
[2023-11-07] MEDS: FERROUS SULFATE 220 MG/5 ML ELIXIR 330 MG GT (09:30)
[2023-11-07] MEDS: PANTOPRAZOLE 40 MG GRANPKT.DR GT (09:30)
[2023-11-07] MEDS: MULTIVITAMIN 1 TAB TABLET GT (09:30)
--- NOTE | 2023-11-07 12:30 | PD.SAPROG ---
Progress Note - SubAcute DIAGNOSIS (1) Chronic respiratory failure with hypoxia: Status: Chronic (2) Dependent on ventilator: Status: Chronic (3) Congestive cardiac failure: Status: Chronic (4) Epilepsy, unspecified, intractable, without status epilepticus: Status: Chronic (5) Anemia: Status: Chronic (6) Hypothyroidism, unspecified: Status: Chronic (7) Developmental disorder of scholastic skills, unspecified: Status: Chronic (8) Age-related osteoporosis without current pathological fracture: Status: Chronic (9) Gastrostomy status: Status: Chronic (10) Tracheostomy status: Status: Chronic SUBJECTIVE Fever:: unchanged (low grade) GI:: none Shortness of Breath:: none GI:: no complaints Pain:: none OBJECTIVE Most recent vital signs: Last Vital Signs Temp 97.4 F 11/11/23 12:00 Pulse 80 11/11/23 12:10 Resp 25 H 11/11/23 12:10 BP 100/65 11/11/23 12:00 Pulse Ox 98 11/11/23 12:10 O2 Del Method Mechanical Ventilation 11/10/23 06:00 FiO2 31 11/11/23 12:10 Neurological:: awake Speech:: nods head and appropriate (Sometimes) Answers questions:: sometimes Respiratory:: lungs clear Cardiovascular: RRR Abdomen: soft and nontender Decubitus:: none Tracheostomy:: to ventilator Feeding per:: G tube Complaints:: none ASSESSMENT & PLAN Assessment: Patient with cognitive function deficits. ventilator dependent. No distress. Stable condition. Diagnosis and treatment reviewed. Pt does not tolerate weaning from Ventilator. Family updated in IDT. Pt.'s father is very supportive. Transient increase in leak around gastrostomy site with coffee-ground liquid positive for occult blood. Symptomatic ineffective hence patient transferred to ER 09/15/2023 for evaluation and management. Displacement of G-tube into the pyloric bulb seemed to be causing outflow obstruction which on repositioning and semi-deflating the tube balloon did resolve and pt received back later that night in a stable condition with G I consult. Fever finally resolved after antibiotics. now back to baseline stable status. Pt's father involved in pt care and kept informed. No new issues Plan: Current treatment reviewed and continued
[2023-11-08] VITALS (11 sets, daily range): BP systolic 91–121; BP diastolic 56–77; PULSE 65–91; RESP 21–27; TEMP 36.4–36.6; O2SAT 97–100
[2023-11-08] MEDS: IPRATROPIUM/ALBUTEROL 3 ML AMPUL.NEB INH ×4 (00:31→18:31)
[2023-11-08] MEDS: LEVOTHYROXINE 50 MCG TABLET GT (05:15)
[2023-11-08] MEDS: LACTULOSE 10 GM/15 ML SOLUTION GT ×3 (05:15→20:37)
[2023-11-08] MEDS: acetaZOLAMIDE 250 MG TABLET GT ×2 (09:07→20:38)
[2023-11-08] MEDS: POTASSIUM CHLORIDE 20 MEQ TAB.ER.PRT GT ×2 (09:08→20:39)
[2023-11-08] MEDS: VALPROIC ACID 250 MG/5 ML 1000 MG GT (09:08)
[2023-11-08] MEDS: CARVEDILOL 3.125 MG TABLET GT (09:08)
[2023-11-08] MEDS: FERROUS SULFATE 220 MG/5 ML ELIXIR 330 MG GT (09:08)
[2023-11-08] MEDS: MULTIVITAMIN 1 TAB TABLET GT (09:08)
[2023-11-08] MEDS: PANTOPRAZOLE 40 MG GRANPKT.DR GT (09:08)
[2023-11-08] MEDS: levETIRAcetam 750 MG TABLET GT ×2 (09:08→20:38)
[2023-11-08] MEDS: BUMETANIDE 1 MG TABLET GT ×2 (09:08→20:38)
[2023-11-09] VITALS (10 sets, daily range): BP systolic 95–110; BP diastolic 60–70; PULSE 61–103; RESP 22–31; TEMP 36.4–37.2; O2SAT 94–99
[2023-11-09] MEDS: IPRATROPIUM/ALBUTEROL 3 ML AMPUL.NEB INH ×4 (00:11→18:45)
[2023-11-09] MEDS: LACTULOSE 10 GM/15 ML SOLUTION GT ×3 (05:28→21:05)
[2023-11-09] MEDS: LEVOTHYROXINE 50 MCG TABLET GT (05:28)
[2023-11-09] MEDS: acetaZOLAMIDE 250 MG TABLET GT ×2 (08:20→21:06)
[2023-11-09] MEDS: CARVEDILOL 3.125 MG TABLET GT (08:21)
[2023-11-09] MEDS: BUMETANIDE 1 MG TABLET GT ×2 (08:21→21:06)
[2023-11-09] MEDS: levETIRAcetam 750 MG TABLET GT ×2 (08:23→21:07)
[2023-11-09] MEDS: FERROUS SULFATE 220 MG/5 ML ELIXIR 330 MG GT (08:23)
[2023-11-09] MEDS: MULTIVITAMIN 1 TAB TABLET GT (08:23)
[2023-11-09] MEDS: PANTOPRAZOLE 40 MG GRANPKT.DR GT (08:24)
[2023-11-09] MEDS: VALPROIC ACID 250 MG/5 ML 1000 MG GT (08:25)
[2023-11-09] MEDS: POTASSIUM CHLORIDE 20 MEQ TAB.ER.PRT GT ×2 (08:25→21:07)
[2023-11-10] VITALS (9 sets, daily range): BP systolic 106–123; BP diastolic 62–69; PULSE 74–108; RESP 20–29; TEMP 36.3–36.6; O2SAT 97–100
[2023-11-10] MEDS: IPRATROPIUM/ALBUTEROL 3 ML AMPUL.NEB INH ×4 (00:20→19:35)
[2023-11-10] MEDS: LEVOTHYROXINE 50 MCG TABLET GT (05:10)
[2023-11-10] MEDS: LACTULOSE 10 GM/15 ML SOLUTION GT ×3 (05:10→21:08)
[2023-11-10] MEDS: CARVEDILOL 3.125 MG TABLET GT (09:24)
[2023-11-10] MEDS: BUMETANIDE 1 MG TABLET GT ×2 (09:24→21:08)
[2023-11-10] MEDS: acetaZOLAMIDE 250 MG TABLET GT ×2 (09:24→21:08)
[2023-11-10] MEDS: levETIRAcetam 750 MG TABLET GT ×2 (09:25→21:09)
[2023-11-10] MEDS: FERROUS SULFATE 220 MG/5 ML ELIXIR 330 MG GT (09:25)
[2023-11-10] MEDS: MULTIVITAMIN 1 TAB TABLET GT (09:25)
[2023-11-10] MEDS: PANTOPRAZOLE 40 MG GRANPKT.DR GT (09:26)
[2023-11-10] MEDS: POTASSIUM CHLORIDE 20 MEQ TAB.ER.PRT GT ×2 (09:27→21:09)
[2023-11-10] MEDS: VALPROIC ACID 250 MG/5 ML 1000 MG GT (09:27)
[2023-11-10] MEDS: guaiFENesin Liq 100 MG/5 ML LIQUID 300 MG GT (10:27)
[2023-11-11] VITALS (10 sets, daily range): BP systolic 90–114; BP diastolic 59–71; PULSE 77–108; RESP 20–36; TEMP 36–36.4; O2SAT 95–100
[2023-11-11] MEDS: IPRATROPIUM/ALBUTEROL 3 ML AMPUL.NEB INH ×4 (00:45→18:57)
[2023-11-11] MEDS: LACTULOSE 10 GM/15 ML SOLUTION GT ×3 (05:22→21:00)
[2023-11-11] MEDS: LEVOTHYROXINE 50 MCG TABLET GT (05:22)
[2023-11-11] MEDS: BUMETANIDE 1 MG TABLET GT ×2 (08:53→21:00)
[2023-11-11] MEDS: acetaZOLAMIDE 250 MG TABLET GT ×2 (08:53→21:00)
[2023-11-11] MEDS: FERROUS SULFATE 220 MG/5 ML ELIXIR 330 MG GT (08:54)
[2023-11-11] MEDS: levETIRAcetam 750 MG TABLET GT ×2 (08:54→21:00)
[2023-11-11] MEDS: PANTOPRAZOLE 40 MG GRANPKT.DR GT (08:55)
[2023-11-11] MEDS: MULTIVITAMIN 1 TAB TABLET GT (08:55)
[2023-11-11] MEDS: POTASSIUM CHLORIDE 20 MEQ TAB.ER.PRT GT ×2 (08:56→21:00)
[2023-11-11] MEDS: VALPROIC ACID 250 MG/5 ML 1000 MG GT (08:56)
--- NOTE | 2023-11-11 11:46 | PC.SS ---
Room Visit: Resident is laying in bed with head of the elevated with call light properly placed with no signs of distress. Resident has trach in place on vent and GT in place for medication and nutrition. Resident remains conserved by his father Jeremi and continues to be a [facility] client and has regular visits from [facility]. Resident will remain in current care as he has no changes in care or condition, he will continue to have all subacute care needs met by staff.
--- NOTE | 2023-11-11 11:56 | PC.NURSE ---
Resident received shower today. No new skin issues to report. All txs completed.
[2023-11-12] VITALS (11 sets, daily range): BP systolic 94–112; BP diastolic 56–68; PULSE 76–105; RESP 19–31; TEMP 36.1–36.4; O2SAT 95–100
[2023-11-12] MEDS: IPRATROPIUM/ALBUTEROL 3 ML AMPUL.NEB INH ×4 (00:30→18:50)
--- NOTE | 2023-11-12 01:57 | PC.RT ---
hme changed at this time due to not changed on am shift
[2023-11-12] MEDS: LACTULOSE 10 GM/15 ML SOLUTION GT ×3 (05:22→21:00)
[2023-11-12] MEDS: LEVOTHYROXINE 50 MCG TABLET GT (05:22)
[2023-11-12] MEDS: FERROUS SULFATE 220 MG/5 ML ELIXIR 330 MG GT (09:19)
[2023-11-12] MEDS: acetaZOLAMIDE 250 MG TABLET GT ×2 (09:19→20:25)
[2023-11-12] MEDS: BUMETANIDE 1 MG TABLET GT ×2 (09:20→20:25)
[2023-11-12] MEDS: PANTOPRAZOLE 40 MG GRANPKT.DR GT (09:20)
[2023-11-12] MEDS: levETIRAcetam 750 MG TABLET GT ×2 (09:20→20:26)
[2023-11-12] MEDS: MULTIVITAMIN 1 TAB TABLET GT (09:20)
[2023-11-12] MEDS: POTASSIUM CHLORIDE 20 MEQ TAB.ER.PRT GT ×2 (09:22→20:26)
[2023-11-12] MEDS: VALPROIC ACID 250 MG/5 ML 1000 MG GT (09:22)
[2023-11-13] VITALS (11 sets, daily range): BP systolic 98–111; BP diastolic 62–71; PULSE 77–106; RESP 19–29; TEMP 36.1–36.7; O2SAT 96–100
[2023-11-13] MEDS: IPRATROPIUM/ALBUTEROL 3 ML AMPUL.NEB INH ×4 (00:54→18:50)
[2023-11-13] MEDS: LEVOTHYROXINE 50 MCG TABLET GT (05:10)
[2023-11-13] MEDS: BUMETANIDE 1 MG TABLET GT ×2 (09:14→20:35)
[2023-11-13] MEDS: FERROUS SULFATE 220 MG/5 ML ELIXIR 330 MG GT (09:16)
[2023-11-13] MEDS: levETIRAcetam 750 MG TABLET GT ×2 (09:16→20:36)
[2023-11-13] MEDS: MULTIVITAMIN 1 TAB TABLET GT (09:16)
[2023-11-13] MEDS: POTASSIUM CHLORIDE 20 MEQ TAB.ER.PRT GT ×2 (09:17→20:36)
[2023-11-13] MEDS: PANTOPRAZOLE 40 MG GRANPKT.DR GT (09:17)
[2023-11-13] MEDS: VALPROIC ACID 250 MG/5 ML 1000 MG GT (09:19)
[2023-11-13] MEDS: acetaZOLAMIDE 250 MG TABLET GT ×2 (09:23→20:35)
[2023-11-13] MEDS: LACTULOSE 10 GM/15 ML SOLUTION GT ×2 (14:44→22:26)
[2023-11-14] VITALS (10 sets, daily range): BP systolic 100–118; BP diastolic 63–74; PULSE 72–90; RESP 20–25; TEMP 36.1–36.7; O2SAT 98–100
[2023-11-14] MEDS: IPRATROPIUM/ALBUTEROL 3 ML AMPUL.NEB INH ×4 (00:30→18:55)
[2023-11-14] MEDS: LEVOTHYROXINE 50 MCG TABLET GT (05:09)
[2023-11-14] MEDS: LACTULOSE 10 GM/15 ML SOLUTION GT ×3 (05:09→21:03)
[2023-11-14] MEDS: BUMETANIDE 1 MG TABLET GT ×2 (08:40→21:03)
[2023-11-14] MEDS: CARVEDILOL 3.125 MG TABLET GT (08:40)
[2023-11-14] MEDS: acetaZOLAMIDE 250 MG TABLET GT ×2 (08:40→21:03)
[2023-11-14] MEDS: FERROUS SULFATE 220 MG/5 ML ELIXIR 330 MG GT (08:41)
[2023-11-14] MEDS: levETIRAcetam 750 MG TABLET GT ×2 (08:43→21:03)
[2023-11-14] MEDS: MULTIVITAMIN 1 TAB TABLET GT (08:43)
[2023-11-14] MEDS: PANTOPRAZOLE 40 MG GRANPKT.DR GT (08:44)
[2023-11-14] MEDS: VALPROIC ACID 250 MG/5 ML 1000 MG GT (08:44)
[2023-11-14] MEDS: POTASSIUM CHLORIDE 20 MEQ TAB.ER.PRT GT ×2 (08:44→21:04)
[2023-11-14] MEDS: guaiFENesin Liq 100 MG/5 ML LIQUID 300 MG GT (21:10)
[2023-11-15] VITALS (11 sets, daily range): BP systolic 96–116; BP diastolic 61–77; PULSE 64–89; RESP 20–28; TEMP 36.1–36.7; O2SAT 97–100
[2023-11-15] MEDS: IPRATROPIUM/ALBUTEROL 3 ML AMPUL.NEB INH ×4 (00:28→19:58)
[2023-11-15] MEDS: LEVOTHYROXINE 50 MCG TABLET GT (05:20)
[2023-11-15] MEDS: LACTULOSE 10 GM/15 ML SOLUTION GT (05:20)
[2023-11-15] MEDS: acetaZOLAMIDE 250 MG TABLET GT ×2 (09:20→21:04)
[2023-11-15] MEDS: BUMETANIDE 1 MG TABLET GT ×2 (09:20→21:04)
[2023-11-15] MEDS: CARVEDILOL 3.125 MG TABLET GT (09:21)
[2023-11-15] MEDS: MULTIVITAMIN 1 TAB TABLET GT (09:22)
[2023-11-15] MEDS: FERROUS SULFATE 220 MG/5 ML ELIXIR 330 MG GT (09:22)
[2023-11-15] MEDS: PANTOPRAZOLE 40 MG GRANPKT.DR GT (09:22)
[2023-11-15] MEDS: levETIRAcetam 750 MG TABLET GT ×2 (09:22→21:05)
[2023-11-15] MEDS: POTASSIUM CHLORIDE 20 MEQ TAB.ER.PRT GT ×2 (09:23→21:05)
[2023-11-15] MEDS: VALPROIC ACID 250 MG/5 ML 1000 MG GT (09:24)
[2023-11-15] MEDS: MAGNESIUM HYDROXIDE 30 ML ORAL SUSP ML GT (09:25)
--- NOTE | 2023-11-15 11:58 | PC.SS ---
Resident seen by level vial curvature gauger/Dr. Rene for routine nail trim. Resident tolerated treatment well, no new orders or recommendations resident to continue current care.
--- NOTE | 2023-11-15 22:14 | PD.SAPROG ---
Progress Note - SubAcute DIAGNOSIS (1) Chronic respiratory failure with hypoxia: Status: Chronic (2) Dependent on ventilator: Status: Chronic (3) Congestive cardiac failure: Status: Chronic (4) Epilepsy, unspecified, intractable, without status epilepticus: Status: Chronic (5) Anemia: Status: Chronic (6) Hypothyroidism, unspecified: Status: Chronic (7) Developmental disorder of scholastic skills, unspecified: Status: Chronic (8) Age-related osteoporosis without current pathological fracture: Status: Chronic (9) Gastrostomy status: Status: Chronic (10) Tracheostomy status: Status: Chronic SUBJECTIVE Fever:: unchanged (low grade) GI:: none Shortness of Breath:: none GI:: no complaints Pain:: none OBJECTIVE Most recent vital signs: Last Vital Signs Temp 97.4 F 11/15/23 17:57 Pulse 78 11/15/23 21:04 Resp 24 H 11/15/23 18:31 BP 96/61 11/15/23 21:04 Pulse Ox 99 11/15/23 18:31 O2 Del Method Mechanical Ventilation 11/15/23 17:57 FiO2 31 11/15/23 18:31 Neurological:: awake Speech:: nods head and appropriate (Sometimes) Answers questions:: sometimes Respiratory:: lungs clear Cardiovascular: RRR Abdomen: soft and nontender Decubitus:: none Tracheostomy:: to ventilator Feeding per:: G tube Complaints:: none ASSESSMENT & PLAN Assessment: Patient with cognitive function deficits. ventilator dependent. No distress. Stable condition. Diagnosis and treatment reviewed. Pt does not tolerate weaning from Ventilator. Family updated in IDT. Pt.'s father is very supportive. Transient increase in leak around gastrostomy site with coffee-ground liquid positive for occult blood. Symptomatic ineffective hence patient transferred to ER 09/15/2023 for evaluation and management. Displacement of G-tube into the pyloric bulb seemed to be causing outflow obstruction which on repositioning and semi-deflating the tube balloon did resolve and pt received back later that night in a stable condition with G I consult. Fever finally resolved after antibiotics. now back to baseline stable status. Pt's father involved in pt care and kept informed. No new issues Plan: Current treatment reviewed and continued
[2023-11-16] VITALS (12 sets, daily range): BP systolic 94–138; BP diastolic 64–82; PULSE 64–101; RESP 20–33; TEMP 36.1–36.3; O2SAT 97–100
[2023-11-16] MEDS: IPRATROPIUM/ALBUTEROL 3 ML AMPUL.NEB INH ×4 (00:55→18:50)
[2023-11-16] MEDS: LEVOTHYROXINE 50 MCG TABLET GT (05:32)
[2023-11-16] MEDS: LACTULOSE 10 GM/15 ML SOLUTION GT ×3 (05:32→21:25)
[2023-11-16] MEDS: acetaZOLAMIDE 250 MG TABLET GT ×2 (08:58→20:47)
[2023-11-16] MEDS: BUMETANIDE 1 MG TABLET GT ×2 (08:58→20:47)
[2023-11-16] MEDS: FERROUS SULFATE 220 MG/5 ML ELIXIR 330 MG GT (08:59)
[2023-11-16] MEDS: VALPROIC ACID 250 MG/5 ML 1000 MG GT (09:02)
[2023-11-16] MEDS: PANTOPRAZOLE 40 MG GRANPKT.DR GT (09:02)
[2023-11-16] MEDS: MULTIVITAMIN 1 TAB TABLET GT (09:02)
[2023-11-16] MEDS: POTASSIUM CHLORIDE 20 MEQ TAB.ER.PRT GT ×2 (09:02→20:48)
[2023-11-16] MEDS: levETIRAcetam 750 MG TABLET GT ×2 (09:02→20:48)
[2023-11-16] MEDS: LOSARTAN 25 MG TABLET GT (20:48)
[2023-11-17] VITALS (11 sets, daily range): BP systolic 97–116; BP diastolic 50–69; PULSE 62–115; RESP 22–25; TEMP 36.1–36.3; O2SAT 92–98
[2023-11-17] MEDS: IPRATROPIUM/ALBUTEROL 3 ML AMPUL.NEB INH ×4 (00:25→18:40)
[2023-11-17] MEDS: LACTULOSE 10 GM/15 ML SOLUTION GT ×3 (05:22→22:00)
[2023-11-17] MEDS: LEVOTHYROXINE 50 MCG TABLET GT (05:22)
[2023-11-17] MEDS: acetaZOLAMIDE 250 MG TABLET GT ×2 (09:10→21:00)
[2023-11-17] MEDS: FERROUS SULFATE 220 MG/5 ML ELIXIR 330 MG GT (09:12)
[2023-11-17] MEDS: levETIRAcetam 750 MG TABLET GT ×2 (09:13→21:00)
[2023-11-17] MEDS: POTASSIUM CHLORIDE 20 MEQ TAB.ER.PRT GT ×2 (09:14→21:00)
[2023-11-17] MEDS: MULTIVITAMIN 1 TAB TABLET GT (09:14)
[2023-11-17] MEDS: PANTOPRAZOLE 40 MG GRANPKT.DR GT (09:14)
[2023-11-17] MEDS: VALPROIC ACID 250 MG/5 ML 1000 MG GT (09:15)
[2023-11-17] MEDS: BUMETANIDE 1 MG TABLET GT ×2 (09:17→21:00)
--- NOTE | 2023-11-17 15:45 | PC.SS ---
Resident received visit from [facility] counselor Georgi Zamora, no questions or concerns at this time. Resident is well groomed with call light in place with no signs of distress.
[2023-11-18] VITALS (11 sets, daily range): BP systolic 90–108; BP diastolic 60–67; PULSE 71–107; RESP 20–31; TEMP 36.1–36.8; O2SAT 95–100
[2023-11-18] MEDS: IPRATROPIUM/ALBUTEROL 3 ML AMPUL.NEB INH ×4 (01:10→18:25)
[2023-11-18] MEDS: LACTULOSE 10 GM/15 ML SOLUTION GT ×3 (05:53→22:00)
[2023-11-18] MEDS: LEVOTHYROXINE 50 MCG TABLET GT (05:54)
[2023-11-18] MEDS: acetaZOLAMIDE 250 MG TABLET GT ×2 (08:34→20:27)
[2023-11-18] MEDS: FERROUS SULFATE 220 MG/5 ML ELIXIR 330 MG GT (08:35)
[2023-11-18] MEDS: BUMETANIDE 1 MG TABLET GT ×2 (08:35→20:28)
[2023-11-18] MEDS: MULTIVITAMIN 1 TAB TABLET GT (08:36)
[2023-11-18] MEDS: levETIRAcetam 750 MG TABLET GT ×2 (08:36→20:28)
[2023-11-18] MEDS: VALPROIC ACID 250 MG/5 ML 1000 MG GT (08:37)
[2023-11-18] MEDS: PANTOPRAZOLE 40 MG GRANPKT.DR GT (08:37)
[2023-11-18] MEDS: POTASSIUM CHLORIDE 20 MEQ TAB.ER.PRT GT ×2 (08:37→20:29)
[2023-11-19] VITALS (11 sets, daily range): BP systolic 100–133; BP diastolic 53–81; PULSE 57–91; RESP 20–28; TEMP 36.6–36.7; O2SAT 95–100
[2023-11-19] MEDS: IPRATROPIUM/ALBUTEROL 3 ML AMPUL.NEB INH ×4 (00:51→18:40)
[2023-11-19] MEDS: LACTULOSE 10 GM/15 ML SOLUTION GT ×2 (05:39→14:10)
[2023-11-19] MEDS: LEVOTHYROXINE 50 MCG TABLET GT (05:39)
[2023-11-19] MEDS: acetaZOLAMIDE 250 MG TABLET GT ×2 (08:47→20:36)
[2023-11-19] MEDS: BUMETANIDE 1 MG TABLET GT ×2 (08:47→20:36)
[2023-11-19] MEDS: FERROUS SULFATE 220 MG/5 ML ELIXIR 330 MG GT (08:48)
[2023-11-19] MEDS: VALPROIC ACID 250 MG/5 ML 1000 MG GT (08:48)
[2023-11-19] MEDS: POTASSIUM CHLORIDE 20 MEQ TAB.ER.PRT GT ×2 (08:48→20:38)
[2023-11-19] MEDS: PANTOPRAZOLE 40 MG GRANPKT.DR GT (08:48)
[2023-11-19] MEDS: levETIRAcetam 750 MG TABLET GT ×2 (08:48→20:38)
[2023-11-19] MEDS: MULTIVITAMIN 1 TAB TABLET GT (08:48)
[2023-11-19] MEDS: CARVEDILOL 3.125 MG TABLET GT (08:48)
--- NOTE | 2023-11-19 12:45 | PD.SAPROG ---
Progress Note - SubAcute DIAGNOSIS (1) Chronic respiratory failure with hypoxia: Status: Chronic (2) Dependent on ventilator: Status: Chronic (3) Congestive cardiac failure: Status: Chronic (4) Epilepsy, unspecified, intractable, without status epilepticus: Status: Chronic (5) Anemia: Status: Chronic (6) Hypothyroidism, unspecified: Status: Chronic (7) Developmental disorder of scholastic skills, unspecified: Status: Chronic (8) Age-related osteoporosis without current pathological fracture: Status: Chronic (9) Gastrostomy status: Status: Chronic (10) Tracheostomy status: Status: Chronic SUBJECTIVE Fever:: unchanged (low grade) GI:: none Shortness of Breath:: none GI:: no complaints Pain:: none OBJECTIVE Most recent vital signs: Last Vital Signs Temp 97.9 F 11/21/23 06:00 Pulse 96 11/21/23 08:30 Resp 29 H 11/21/23 07:05 BP 110/67 11/21/23 08:30 Pulse Ox 99 11/21/23 07:05 O2 Del Method Mechanical Ventilation 11/21/23 06:00 FiO2 32 11/21/23 07:05 Neurological:: awake Speech:: nods head and appropriate (Sometimes) Answers questions:: sometimes Respiratory:: lungs clear Cardiovascular: RRR Abdomen: soft and nontender Decubitus:: none Tracheostomy:: to ventilator Feeding per:: G tube Complaints:: none ASSESSMENT & PLAN Assessment: Patient with cognitive function deficits. ventilator dependent. No distress. Stable condition. Diagnosis and treatment reviewed. Pt does not tolerate weaning from Ventilator. Family updated in IDT. Pt.'s father is very supportive. Transient increase in leak around gastrostomy site with coffee-ground liquid positive for occult blood. Symptomatic ineffective hence patient transferred to ER 09/15/2023 for evaluation and management. Displacement of G-tube into the pyloric bulb seemed to be causing outflow obstruction which on repositioning and semi-deflating the tube balloon did resolve and pt received back later that night in a stable condition with G I consult. Fever finally resolved after antibiotics. now back to baseline stable status. Pt's father involved in pt care and kept informed. No new issues Plan: Current treatment reviewed and continued
[2023-11-20] VITALS (12 sets, daily range): BP systolic 94–124; BP diastolic 62–85; PULSE 78–98; RESP 20–26; TEMP 36.6–36.9; O2SAT 96–100
[2023-11-20] MEDS: IPRATROPIUM/ALBUTEROL 3 ML AMPUL.NEB INH ×5 (00:10→23:46)
[2023-11-20] MEDS: LACTULOSE 10 GM/15 ML SOLUTION GT ×3 (05:25→21:05)
[2023-11-20] MEDS: LEVOTHYROXINE 50 MCG TABLET GT (05:25)
[2023-11-20] MEDS: acetaZOLAMIDE 250 MG TABLET GT ×2 (08:47→20:41)
[2023-11-20] MEDS: BUMETANIDE 1 MG TABLET GT ×2 (08:48→20:42)
[2023-11-20] MEDS: levETIRAcetam 750 MG TABLET GT ×2 (08:49→20:42)
[2023-11-20] MEDS: PANTOPRAZOLE 40 MG GRANPKT.DR GT (08:50)
[2023-11-20] MEDS: MULTIVITAMIN 1 TAB TABLET GT (08:50)
[2023-11-20] MEDS: FERROUS SULFATE 220 MG/5 ML ELIXIR 330 MG GT (08:50)
[2023-11-20] MEDS: POTASSIUM CHLORIDE 20 MEQ TAB.ER.PRT GT ×2 (08:53→20:43)
[2023-11-20] MEDS: VALPROIC ACID 250 MG/5 ML 1000 MG GT (08:54)
[2023-11-20] MEDS: LOSARTAN 25 MG TABLET GT (20:42)
[2023-11-21] VITALS (10 sets, daily range): BP systolic 96–110; BP diastolic 51–67; PULSE 51–98; RESP 19–29; TEMP 36.3–37; O2SAT 97–100
[2023-11-21] MEDS: LACTULOSE 10 GM/15 ML SOLUTION GT ×3 (05:13→22:15)
[2023-11-21] MEDS: LEVOTHYROXINE 50 MCG TABLET GT (05:13)
[2023-11-21] MEDS: IPRATROPIUM/ALBUTEROL 3 ML AMPUL.NEB INH ×3 (07:05→19:20)
[2023-11-21] MEDS: BUMETANIDE 1 MG TABLET GT ×2 (08:28→20:27)
[2023-11-21] MEDS: acetaZOLAMIDE 250 MG TABLET GT ×2 (08:28→20:27)
[2023-11-21] MEDS: CARVEDILOL 3.125 MG TABLET GT (08:30)
[2023-11-21] MEDS: FERROUS SULFATE 220 MG/5 ML ELIXIR 330 MG GT (08:30)
[2023-11-21] MEDS: PANTOPRAZOLE 40 MG GRANPKT.DR GT (08:32)
[2023-11-21] MEDS: levETIRAcetam 750 MG TABLET GT ×2 (08:32→20:28)
[2023-11-21] MEDS: VALPROIC ACID 250 MG/5 ML 1000 MG GT (08:33)
[2023-11-21] MEDS: POTASSIUM CHLORIDE 20 MEQ TAB.ER.PRT GT ×2 (08:33→20:28)
[2023-11-21] MEDS: guaiFENesin Liq 100 MG/5 ML LIQUID 300 MG GT (09:30)
[2023-11-22] VITALS (12 sets, daily range): BP systolic 100–127; BP diastolic 66–81; PULSE 65–108; RESP 20–28; TEMP 36.1–36.7; O2SAT 97–100
[2023-11-22] MEDS: IPRATROPIUM/ALBUTEROL 3 ML AMPUL.NEB INH ×4 (00:50→19:20)
[2023-11-22] MEDS: LACTULOSE 10 GM/15 ML SOLUTION GT ×3 (05:36→21:16)
[2023-11-22] MEDS: LEVOTHYROXINE 50 MCG TABLET GT (05:36)
[2023-11-22] MEDS: acetaZOLAMIDE 250 MG TABLET GT ×2 (08:22→21:16)
[2023-11-22] MEDS: BUMETANIDE 1 MG TABLET GT ×2 (08:23→21:16)
[2023-11-22] MEDS: CARVEDILOL 3.125 MG TABLET GT (08:23)
[2023-11-22] MEDS: levETIRAcetam 750 MG TABLET GT ×2 (08:25→21:16)
[2023-11-22] MEDS: PANTOPRAZOLE 40 MG GRANPKT.DR GT (08:25)
[2023-11-22] MEDS: POTASSIUM CHLORIDE 20 MEQ TAB.ER.PRT GT ×2 (08:25→21:17)
[2023-11-22] MEDS: FERROUS SULFATE 220 MG/5 ML ELIXIR 330 MG GT (08:25)
[2023-11-22] MEDS: VALPROIC ACID 250 MG/5 ML 1000 MG GT (08:26)
[2023-11-22] MEDS: LOSARTAN 25 MG TABLET GT (21:17)
[2023-11-22] MEDS: ACETAMINOPHEN 325 MG TABLET 650 MG GT (21:18)
[2023-11-23] VITALS (10 sets, daily range): BP systolic 98–112; BP diastolic 64–75; PULSE 63–98; RESP 20–36; TEMP 36.1–36.2; O2SAT 97–100
[2023-11-23] MEDS: IPRATROPIUM/ALBUTEROL 3 ML AMPUL.NEB INH ×4 (00:10→18:05)
[2023-11-23] MEDS: LACTULOSE 10 GM/15 ML SOLUTION GT ×3 (05:19→21:00)
[2023-11-23] MEDS: LEVOTHYROXINE 50 MCG TABLET GT (05:19)
[2023-11-23] MEDS: BUMETANIDE 1 MG TABLET GT ×2 (08:56→21:00)
[2023-11-23] MEDS: acetaZOLAMIDE 250 MG TABLET GT ×2 (08:56→21:00)
[2023-11-23] MEDS: levETIRAcetam 750 MG TABLET GT ×2 (08:57→21:00)
[2023-11-23] MEDS: FERROUS SULFATE 220 MG/5 ML ELIXIR 330 MG GT (08:57)
[2023-11-23] MEDS: MULTIVITAMIN 1 TAB TABLET GT (08:58)
[2023-11-23] MEDS: PANTOPRAZOLE 40 MG GRANPKT.DR GT (08:58)
[2023-11-23] MEDS: VALPROIC ACID 250 MG/5 ML 1000 MG GT (08:58)
[2023-11-23] MEDS: POTASSIUM CHLORIDE 20 MEQ TAB.ER.PRT GT ×2 (08:58→21:00)
--- NOTE | 2023-11-23 12:30 | PD.SAPROG ---
Progress Note - SubAcute DIAGNOSIS (1) Chronic respiratory failure with hypoxia: Status: Chronic (2) Dependent on ventilator: Status: Chronic (3) Congestive cardiac failure: Status: Chronic (4) Epilepsy, unspecified, intractable, without status epilepticus: Status: Chronic (5) Anemia: Status: Chronic (6) Hypothyroidism, unspecified: Status: Chronic (7) Developmental disorder of scholastic skills, unspecified: Status: Chronic (8) Age-related osteoporosis without current pathological fracture: Status: Chronic (9) Gastrostomy status: Status: Chronic (10) Tracheostomy status: Status: Chronic SUBJECTIVE Fever:: unchanged (low grade) GI:: none Shortness of Breath:: none GI:: no complaints Pain:: none OBJECTIVE Most recent vital signs: Last Vital Signs Temp 97.2 F 11/24/23 18:00 Pulse 99 11/24/23 20:11 Resp 24 H 11/24/23 18:00 BP 101/60 11/24/23 20:11 Pulse Ox 99 11/24/23 18:00 O2 Del Method Mechanical Ventilation 11/24/23 05:58 FiO2 31 11/24/23 11:11 Neurological:: awake Speech:: nods head and appropriate (Sometimes) Answers questions:: sometimes Respiratory:: lungs clear Cardiovascular: RRR Abdomen: soft and nontender Decubitus:: none Tracheostomy:: to ventilator Feeding per:: G tube Complaints:: none ASSESSMENT & PLAN Assessment: Patient with cognitive function deficits. ventilator dependent. No distress. Stable condition. Diagnosis and treatment reviewed. Pt does not tolerate weaning from Ventilator. Family updated in IDT. Pt.'s father is very supportive. Transient increase in leak around gastrostomy site with coffee-ground liquid positive for occult blood. Symptomatic ineffective hence patient transferred to ER 09/15/2023 for evaluation and management. Displacement of G-tube into the pyloric bulb seemed to be causing outflow obstruction which on repositioning and semi-deflating the tube balloon did resolve and pt received back later that night in a stable condition with G I consult. Fever finally resolved after antibiotics. now back to baseline stable status.Pt on mittens b/l for pulling on life sustaining tubings. Pt's father involved in pt care and kept informed. No new issues Plan: Current treatment reviewed and continued
[2023-11-23] MEDS: guaiFENesin Liq 100 MG/5 ML LIQUID 300 MG GT (13:43)
[2023-11-24] VITALS (12 sets, daily range): BP systolic 96–116; BP diastolic 53–67; PULSE 74–99; RESP 20–26; TEMP 36–36.3; O2SAT 98–100
[2023-11-24] MEDS: IPRATROPIUM/ALBUTEROL 3 ML AMPUL.NEB INH ×4 (00:45→18:50)
[2023-11-24] MEDS: LACTULOSE 10 GM/15 ML SOLUTION GT ×3 (05:13→22:00)
[2023-11-24] MEDS: LEVOTHYROXINE 50 MCG TABLET GT (05:13)
[2023-11-24] MEDS: acetaZOLAMIDE 250 MG TABLET GT ×2 (09:06→20:10)
[2023-11-24] MEDS: BUMETANIDE 1 MG TABLET GT ×2 (09:06→20:10)
[2023-11-24] MEDS: levETIRAcetam 750 MG TABLET GT ×2 (09:07→20:10)
[2023-11-24] MEDS: FERROUS SULFATE 220 MG/5 ML ELIXIR 330 MG GT (09:07)
[2023-11-24] MEDS: MULTIVITAMIN 1 TAB TABLET GT (09:08)
[2023-11-24] MEDS: PANTOPRAZOLE 40 MG GRANPKT.DR GT (09:08)
[2023-11-24] MEDS: POTASSIUM CHLORIDE 20 MEQ TAB.ER.PRT GT ×2 (09:09→20:11)
[2023-11-24] MEDS: VALPROIC ACID 250 MG/5 ML 1000 MG GT (09:10)
[2023-11-25] VITALS (11 sets, daily range): BP systolic 96–117; BP diastolic 61–76; PULSE 69–102; RESP 17–29; TEMP 35.7–36.8; O2SAT 97–99
[2023-11-25] MEDS: IPRATROPIUM/ALBUTEROL 3 ML AMPUL.NEB INH ×4 (00:35→18:39)
[2023-11-25] MEDS: LACTULOSE 10 GM/15 ML SOLUTION GT ×3 (05:05→22:00)
[2023-11-25] MEDS: LEVOTHYROXINE 50 MCG TABLET GT (05:05)
[2023-11-25] MEDS: acetaZOLAMIDE 250 MG TABLET GT ×2 (08:29→20:22)
[2023-11-25] MEDS: BUMETANIDE 1 MG TABLET GT ×2 (08:29→20:22)
[2023-11-25] MEDS: CARVEDILOL 3.125 MG TABLET GT (08:30)
[2023-11-25] MEDS: FERROUS SULFATE 220 MG/5 ML ELIXIR 330 MG GT (08:31)
[2023-11-25] MEDS: levETIRAcetam 750 MG TABLET GT ×2 (08:34→20:22)
[2023-11-25] MEDS: VALPROIC ACID 250 MG/5 ML 1000 MG GT (08:34)
[2023-11-25] MEDS: PANTOPRAZOLE 40 MG GRANPKT.DR GT (08:34)
[2023-11-25] MEDS: MULTIVITAMIN 1 TAB TABLET GT (08:34)
[2023-11-25] MEDS: POTASSIUM CHLORIDE 20 MEQ TAB.ER.PRT GT ×2 (08:34→20:22)
--- NOTE | 2023-11-25 20:00 | PD.SAPROG ---
Progress Note - SubAcute DIAGNOSIS (1) Chronic respiratory failure with hypoxia: Status: Chronic (2) Dependent on ventilator: Status: Chronic (3) Congestive cardiac failure: Status: Chronic (4) Epilepsy, unspecified, intractable, without status epilepticus: Status: Chronic (5) Anemia: Status: Chronic (6) Hypothyroidism, unspecified: Status: Chronic (7) Developmental disorder of scholastic skills, unspecified: Status: Chronic (8) Age-related osteoporosis without current pathological fracture: Status: Chronic (9) Gastrostomy status: Status: Chronic (10) Tracheostomy status: Status: Chronic SUBJECTIVE Fever:: unchanged (low grade) GI:: none Shortness of Breath:: none GI:: no complaints Pain:: none OBJECTIVE Most recent vital signs: Last Vital Signs Temp 96.8 F 11/25/23 17:45 Pulse 69 11/25/23 17:45 Resp 19 11/25/23 17:45 BP 104/68 11/25/23 17:45 Pulse Ox 99 11/25/23 17:45 O2 Del Method Mechanical Ventilation 11/24/23 05:58 FiO2 31 11/25/23 12:30 Neurological:: awake Speech:: nods head and appropriate (Sometimes) Answers questions:: sometimes Respiratory:: lungs clear Cardiovascular: RRR Abdomen: soft and nontender Decubitus:: none Tracheostomy:: to ventilator Feeding per:: G tube Complaints:: none ASSESSMENT & PLAN Assessment: Patient with cognitive function deficits. ventilator dependent. No distress. Stable condition. Diagnosis and treatment reviewed. Pt does not tolerate weaning from Ventilator. Family updated in IDT. Pt.'s father is very supportive. Transient increase in leak around gastrostomy site with coffee-ground liquid positive for occult blood. Symptomatic ineffective hence patient transferred to ER 09/15/2023 for evaluation and management. Displacement of G-tube into the pyloric bulb seemed to be causing outflow obstruction which on repositioning and semi-deflating the tube balloon did resolve and pt received back later that night in a stable condition with G I consult. Fever finally resolved after antibiotics. now back to baseline stable status.Pt on mittens b/l for pulling on life sustaining tubings. Pt's father involved in pt care and kept informed. No new issues Plan: Current treatment reviewed and continued
[2023-11-26] VITALS (13 sets, daily range): BP systolic 108–122; BP diastolic 70–75; PULSE 44–105; RESP 20–30; TEMP 36.3–36.8; O2SAT 96–100
[2023-11-26] MEDS: IPRATROPIUM/ALBUTEROL 3 ML AMPUL.NEB INH ×3 (00:45→19:05)
[2023-11-26] MEDS: LACTULOSE 10 GM/15 ML SOLUTION GT ×3 (05:30→22:00)
[2023-11-26] MEDS: LEVOTHYROXINE 50 MCG TABLET GT (05:30)
[2023-11-26] MEDS: acetaZOLAMIDE 250 MG TABLET GT ×2 (08:23→20:43)
[2023-11-26] MEDS: BUMETANIDE 1 MG TABLET GT ×2 (08:23→20:43)
[2023-11-26] MEDS: levETIRAcetam 750 MG TABLET GT ×2 (08:24→20:44)
[2023-11-26] MEDS: CARVEDILOL 3.125 MG TABLET GT (08:24)
[2023-11-26] MEDS: FERROUS SULFATE 220 MG/5 ML ELIXIR 330 MG GT (08:24)
[2023-11-26] MEDS: PANTOPRAZOLE 40 MG GRANPKT.DR GT (08:25)
[2023-11-26] MEDS: VALPROIC ACID 250 MG/5 ML 1000 MG GT (08:25)
[2023-11-26] MEDS: MULTIVITAMIN 1 TAB TABLET GT (08:25)
[2023-11-26] MEDS: POTASSIUM CHLORIDE 20 MEQ TAB.ER.PRT GT ×2 (08:25→20:44)
--- NOTE | 2023-11-26 15:30 | PC.SS ---
Room visit: Resident remains on ventilator with trach in place, he has GT in place for medication and nutrition. Resident is unable to make needs known he continues to have all subacute care needs met by staff as he is total care. Resident is conserved by his father Jeremi Javier and he remains CV client. Resident will remain in current care as he is total care unable to make needs known. This SSD will continue to make daily contact with resident and monitor for any changes.
[2023-11-26] MEDS: LOSARTAN 25 MG TABLET GT (20:44)
[2023-11-27] VITALS (10 sets, daily range): BP systolic 100–121; BP diastolic 59–74; PULSE 60–90; RESP 25–28; TEMP 36.5–36.6; O2SAT 95–100
[2023-11-27] MEDS: IPRATROPIUM/ALBUTEROL 3 ML AMPUL.NEB INH ×4 (00:48→18:52)
[2023-11-27] MEDS: LEVOTHYROXINE 50 MCG TABLET GT (05:26)
[2023-11-27] MEDS: LACTULOSE 10 GM/15 ML SOLUTION GT ×2 (05:26→22:00)
[2023-11-27] MEDS: acetaZOLAMIDE 250 MG TABLET GT ×2 (08:50→20:33)
[2023-11-27] MEDS: FERROUS SULFATE 220 MG/5 ML ELIXIR 330 MG GT (08:51)
[2023-11-27] MEDS: MULTIVITAMIN 1 TAB TABLET GT (08:51)
[2023-11-27] MEDS: CARVEDILOL 3.125 MG TABLET GT (08:51)
[2023-11-27] MEDS: BUMETANIDE 1 MG TABLET GT ×2 (08:51→20:33)
[2023-11-27] MEDS: levETIRAcetam 750 MG TABLET GT ×2 (08:51→20:34)
[2023-11-27] MEDS: PANTOPRAZOLE 40 MG GRANPKT.DR GT (08:52)
[2023-11-27] MEDS: POTASSIUM CHLORIDE 20 MEQ TAB.ER.PRT GT ×2 (08:53→20:34)
[2023-11-27] MEDS: VALPROIC ACID 250 MG/5 ML 1000 MG GT (08:53)
[2023-11-28] VITALS (11 sets, daily range): BP systolic 90–112; BP diastolic 59–73; PULSE 62–96; RESP 18–28; TEMP 36.3–36.5; O2SAT 96–100
[2023-11-28] MEDS: IPRATROPIUM/ALBUTEROL 3 ML AMPUL.NEB INH ×4 (00:18→18:30)
[2023-11-28] MEDS: LACTULOSE 10 GM/15 ML SOLUTION GT ×3 (05:20→21:49)
[2023-11-28] MEDS: LEVOTHYROXINE 50 MCG TABLET GT (05:21)
[2023-11-28] MEDS: acetaZOLAMIDE 250 MG TABLET GT ×2 (09:00→20:28)
[2023-11-28] MEDS: BUMETANIDE 1 MG TABLET GT ×2 (09:01→20:28)
[2023-11-28] MEDS: FERROUS SULFATE 220 MG/5 ML ELIXIR 330 MG GT (09:02)
[2023-11-28] MEDS: levETIRAcetam 750 MG TABLET GT ×2 (09:03→20:28)
[2023-11-28] MEDS: MULTIVITAMIN 1 TAB TABLET GT (09:04)
[2023-11-28] MEDS: PANTOPRAZOLE 40 MG GRANPKT.DR GT (09:04)
[2023-11-28] MEDS: POTASSIUM CHLORIDE 20 MEQ TAB.ER.PRT GT ×2 (09:04→20:29)
[2023-11-28] MEDS: VALPROIC ACID 250 MG/5 ML 1000 MG GT (09:04)
[2023-11-29] VITALS (10 sets, daily range): BP systolic 102–139; BP diastolic 63–79; PULSE 64–98; RESP 20–28; TEMP 36.2–36.8; O2SAT 97–99
[2023-11-29] MEDS: IPRATROPIUM/ALBUTEROL 3 ML AMPUL.NEB INH ×4 (00:06→18:30)
[2023-11-29] MEDS: LACTULOSE 10 GM/15 ML SOLUTION GT ×3 (05:20→21:08)
[2023-11-29] MEDS: LEVOTHYROXINE 50 MCG TABLET GT (05:25)
[2023-11-29] MEDS: acetaZOLAMIDE 250 MG TABLET GT ×2 (08:32→20:52)
[2023-11-29] MEDS: BUMETANIDE 1 MG TABLET GT ×2 (08:32→20:52)
[2023-11-29] MEDS: MULTIVITAMIN 1 TAB TABLET GT (08:33)
[2023-11-29] MEDS: CARVEDILOL 3.125 MG TABLET GT (08:33)
[2023-11-29] MEDS: FERROUS SULFATE 220 MG/5 ML ELIXIR 330 MG GT (08:33)
[2023-11-29] MEDS: levETIRAcetam 750 MG TABLET GT ×2 (08:33→20:53)
[2023-11-29] MEDS: POTASSIUM CHLORIDE 20 MEQ TAB.ER.PRT GT ×2 (08:35→20:53)
[2023-11-29] MEDS: VALPROIC ACID 250 MG/5 ML 1000 MG GT (08:35)
[2023-11-29] MEDS: PANTOPRAZOLE 40 MG GRANPKT.DR GT (08:35)
[2023-11-30] VITALS (10 sets, daily range): BP systolic 93–114; BP diastolic 41–75; PULSE 76–101; RESP 17–26; TEMP 36.1–36.4; O2SAT 97–99
[2023-11-30] MEDS: IPRATROPIUM/ALBUTEROL 3 ML AMPUL.NEB INH ×4 (01:16→18:30)
[2023-11-30] MEDS: LACTULOSE 10 GM/15 ML SOLUTION GT ×3 (05:16→21:11)
[2023-11-30] MEDS: LEVOTHYROXINE 50 MCG TABLET GT (05:16)
[2023-11-30] MEDS: acetaZOLAMIDE 250 MG TABLET GT ×2 (08:49→20:21)
[2023-11-30] MEDS: MULTIVITAMIN 1 TAB TABLET GT (08:49)
[2023-11-30] MEDS: FERROUS SULFATE 220 MG/5 ML ELIXIR 330 MG GT (08:49)
[2023-11-30] MEDS: levETIRAcetam 750 MG TABLET GT ×2 (08:49→20:22)
[2023-11-30] MEDS: CARVEDILOL 3.125 MG TABLET GT (08:49)
[2023-11-30] MEDS: BUMETANIDE 1 MG TABLET GT ×2 (08:49→20:22)
[2023-11-30] MEDS: POTASSIUM CHLORIDE 20 MEQ TAB.ER.PRT GT ×2 (08:50→20:22)
[2023-11-30] MEDS: PANTOPRAZOLE 40 MG GRANPKT.DR GT (08:50)
[2023-11-30] MEDS: VALPROIC ACID 250 MG/5 ML 1000 MG GT (08:50)
--- NOTE | 2023-11-30 22:26 | PD.SAPROG ---
Progress Note - SubAcute DIAGNOSIS (1) Chronic respiratory failure with hypoxia: Status: Chronic (2) Dependent on ventilator: Status: Chronic (3) Congestive cardiac failure: Status: Chronic (4) Epilepsy, unspecified, intractable, without status epilepticus: Status: Chronic (5) Anemia: Status: Chronic (6) Hypothyroidism, unspecified: Status: Chronic (7) Developmental disorder of scholastic skills, unspecified: Status: Chronic (8) Age-related osteoporosis without current pathological fracture: Status: Chronic (9) Gastrostomy status: Status: Chronic (10) Tracheostomy status: Status: Chronic SUBJECTIVE Fever:: unchanged (low grade) GI:: none Shortness of Breath:: none GI:: no complaints Pain:: none OBJECTIVE Most recent vital signs: Last Vital Signs Temp 97.6 F 11/30/23 18:00 Pulse 81 11/30/23 20:22 Resp 22 H 11/30/23 18:30 BP 95/57 L 11/30/23 20:22 Pulse Ox 99 11/30/23 18:30 O2 Del Method Mechanical Ventilation 11/30/23 18:00 FiO2 33 11/30/23 18:30 Neurological:: awake Speech:: nods head and appropriate (Sometimes) Answers questions:: sometimes Respiratory:: lungs clear Cardiovascular: RRR Abdomen: soft and nontender Decubitus:: none Tracheostomy:: to ventilator Feeding per:: G tube Complaints:: none ASSESSMENT & PLAN Assessment: Patient with cognitive function deficits. ventilator dependent. No distress. Stable condition. Diagnosis and treatment reviewed. Pt does not tolerate weaning from Ventilator. Family updated in IDT. Pt.'s father is very supportive. Transient increase in leak around gastrostomy site with coffee-ground liquid positive for occult blood. Symptomatic ineffective hence patient transferred to ER 09/15/2023 for evaluation and management. Displacement of G-tube into the pyloric bulb seemed to be causing outflow obstruction which on repositioning and semi-deflating the tube balloon did resolve and pt received back later that night in a stable condition with G I consult. Fever finally resolved after antibiotics. now back to baseline stable status.Pt on mittens b/l for pulling on life sustaining tubings. Pt's father involved in pt care and kept informed. No new issues Plan: Current treatment reviewed and continued
[2023-12-01] VITALS (9 sets, daily range): BP systolic 91–114; BP diastolic 56–79; PULSE 74–86; RESP 20–25; TEMP 36–36.3; O2SAT 97–100
[2023-12-01] MEDS: IPRATROPIUM/ALBUTEROL 3 ML AMPUL.NEB INH ×4 (00:10→18:00)
[2023-12-01] MEDS: LEVOTHYROXINE 50 MCG TABLET GT (05:28)
[2023-12-01] MEDS: LACTULOSE 10 GM/15 ML SOLUTION GT ×3 (05:28→21:00)
[2023-12-01] MEDS: acetaZOLAMIDE 250 MG TABLET GT ×2 (09:21→20:56)
[2023-12-01] MEDS: BUMETANIDE 1 MG TABLET GT ×2 (09:21→20:56)
[2023-12-01] MEDS: levETIRAcetam 750 MG TABLET GT ×2 (09:22→20:56)
[2023-12-01] MEDS: PANTOPRAZOLE 40 MG GRANPKT.DR GT (09:23)
[2023-12-01] MEDS: POTASSIUM CHLORIDE 20 MEQ TAB.ER.PRT GT ×2 (09:23→20:57)
[2023-12-01] MEDS: MULTIVITAMIN 1 TAB TABLET GT (09:23)
[2023-12-01] MEDS: VALPROIC ACID 250 MG/5 ML 1000 MG GT (09:27)
[2023-12-01] MEDS: FERROUS SULFATE 220 MG/5 ML ELIXIR 330 MG GT (09:27)
[2023-12-02] VITALS (10 sets, daily range): BP systolic 96–105; BP diastolic 60–70; PULSE 72–102; RESP 21–28; TEMP 36.1–36.6; O2SAT 97–100
[2023-12-02] MEDS: IPRATROPIUM/ALBUTEROL 3 ML AMPUL.NEB INH ×4 (00:03→17:56)
[2023-12-02] MEDS: LACTULOSE 10 GM/15 ML SOLUTION GT ×3 (05:23→22:00)
[2023-12-02] MEDS: LEVOTHYROXINE 50 MCG TABLET GT (05:24)
[2023-12-02] MEDS: acetaZOLAMIDE 250 MG TABLET GT ×2 (08:46→20:47)
[2023-12-02] MEDS: BUMETANIDE 1 MG TABLET GT ×2 (08:47→20:49)
[2023-12-02] MEDS: CARVEDILOL 3.125 MG TABLET GT (08:48)
[2023-12-02] MEDS: FERROUS SULFATE 220 MG/5 ML ELIXIR 330 MG GT (08:49)
[2023-12-02] MEDS: MULTIVITAMIN 1 TAB TABLET GT (08:49)
[2023-12-02] MEDS: levETIRAcetam 750 MG TABLET GT ×2 (08:49→20:49)
[2023-12-02] MEDS: PANTOPRAZOLE 40 MG GRANPKT.DR GT (08:49)
[2023-12-02] MEDS: POTASSIUM CHLORIDE 20 MEQ TAB.ER.PRT GT ×2 (08:50→20:49)
[2023-12-02] MEDS: VALPROIC ACID 250 MG/5 ML 1000 MG GT (08:50)
[2023-12-03] VITALS (10 sets, daily range): BP systolic 97–119; BP diastolic 60–72; PULSE 62–98; RESP 20–30; TEMP 36–36.7; O2SAT 97–100
[2023-12-03] MEDS: IPRATROPIUM/ALBUTEROL 3 ML AMPUL.NEB INH ×4 (00:46→18:56)
[2023-12-03] MEDS: LEVOTHYROXINE 50 MCG TABLET GT (05:10)
[2023-12-03] MEDS: LACTULOSE 10 GM/15 ML SOLUTION GT ×2 (05:10→14:39)
[2023-12-03] MEDS: BUMETANIDE 1 MG TABLET GT ×2 (08:54→20:59)
[2023-12-03] MEDS: acetaZOLAMIDE 250 MG TABLET GT ×2 (08:54→20:58)
[2023-12-03] MEDS: CARVEDILOL 3.125 MG TABLET GT (08:55)
[2023-12-03] MEDS: FERROUS SULFATE 220 MG/5 ML ELIXIR 330 MG GT (08:55)
[2023-12-03] MEDS: levETIRAcetam 750 MG TABLET GT ×2 (08:55→20:59)
[2023-12-03] MEDS: MULTIVITAMIN 1 TAB TABLET GT (08:56)
[2023-12-03] MEDS: PANTOPRAZOLE 40 MG GRANPKT.DR GT (08:57)
[2023-12-03] MEDS: VALPROIC ACID 250 MG/5 ML 1000 MG GT (08:57)
[2023-12-03] MEDS: POTASSIUM CHLORIDE 20 MEQ TAB.ER.PRT GT ×2 (08:57→20:59)
--- NOTE | 2023-12-03 15:11 | PC.SS ---
Room visit: Resident is laying in bed with head of the bed elevated with call light properly placed with no signs of distress. Resident remains on vent with trach in place and GT in place for medication and nutrition. Resident will remain in current care and will continue to have all subacute care needs met by staff.
[2023-12-04] VITALS (11 sets, daily range): BP systolic 98–110; BP diastolic 66–76; PULSE 76–111; RESP 15–26; TEMP 36.1–36.3; O2SAT 98–100
[2023-12-04] MEDS: IPRATROPIUM/ALBUTEROL 3 ML AMPUL.NEB INH ×4 (00:31→19:00)
[2023-12-04] MEDS: LACTULOSE 10 GM/15 ML SOLUTION GT ×3 (05:27→22:05)
[2023-12-04] MEDS: LEVOTHYROXINE 50 MCG TABLET GT (05:27)
[2023-12-04] MEDS: acetaZOLAMIDE 250 MG TABLET GT ×2 (08:59→20:51)
[2023-12-04] MEDS: BUMETANIDE 1 MG TABLET GT ×2 (08:59→20:51)
[2023-12-04] MEDS: FERROUS SULFATE 220 MG/5 ML ELIXIR 330 MG GT (09:01)
[2023-12-04] MEDS: levETIRAcetam 750 MG TABLET GT ×2 (09:01→20:51)
[2023-12-04] MEDS: POTASSIUM CHLORIDE 20 MEQ TAB.ER.PRT GT ×2 (09:01→20:52)
[2023-12-04] MEDS: MULTIVITAMIN 1 TAB TABLET GT (09:01)
[2023-12-04] MEDS: VALPROIC ACID 250 MG/5 ML 1000 MG GT (09:02)
[2023-12-04] MEDS: PANTOPRAZOLE 40 MG GRANPKT.DR GT (09:05)
--- NOTE | 2023-12-04 23:25 | PD.SAPROG ---
Progress Note - SubAcute DIAGNOSIS (1) Chronic respiratory failure with hypoxia: Status: Chronic (2) Dependent on ventilator: Status: Chronic (3) Congestive cardiac failure: Status: Chronic (4) Epilepsy, unspecified, intractable, without status epilepticus: Status: Chronic (5) Anemia: Status: Chronic (6) Hypothyroidism, unspecified: Status: Chronic (7) Developmental disorder of scholastic skills, unspecified: Status: Chronic (8) Age-related osteoporosis without current pathological fracture: Status: Chronic (9) Gastrostomy status: Status: Chronic (10) Tracheostomy status: Status: Chronic SUBJECTIVE Fever:: unchanged (low grade) GI:: none Shortness of Breath:: none GI:: no complaints Pain:: none OBJECTIVE Most recent vital signs: Last Vital Signs Temp 97.2 F 12/04/23 17:38 Pulse 80 12/04/23 20:51 Resp 20 12/04/23 19:00 BP 102/66 12/04/23 20:51 Pulse Ox 100 12/04/23 19:00 O2 Del Method Mechanical Ventilation 12/04/23 17:38 FiO2 32 12/04/23 22:00 Neurological:: awake Speech:: nods head and appropriate (Sometimes) Answers questions:: sometimes Respiratory:: lungs clear Cardiovascular: RRR Abdomen: soft and nontender Decubitus:: none Tracheostomy:: to ventilator Feeding per:: G tube Complaints:: none ASSESSMENT & PLAN Assessment: Patient with cognitive function deficits. ventilator dependent. No distress. Stable condition. Diagnosis and treatment reviewed. Pt does not tolerate weaning from Ventilator. Family updated in IDT. Pt.'s father is very supportive. Transient increase in leak around gastrostomy site with coffee-ground liquid positive for occult blood. Symptomatic ineffective hence patient transferred to ER 09/15/2023 for evaluation and management. Displacement of G-tube into the pyloric bulb seemed to be causing outflow obstruction which on repositioning and semi-deflating the tube balloon did resolve and pt received back later that night in a stable condition with G I consult. Fever finally resolved after antibiotics. now back to baseline stable status.Pt on mittens b/l for pulling on life sustaining tubings. Pt's father involved in pt care and kept informed. No new issues Plan: Current treatment reviewed and continued
[2023-12-05] VITALS (10 sets, daily range): BP systolic 97–115; BP diastolic 61–80; PULSE 67–102; RESP 17–28; TEMP 36.3–36.7; O2SAT 98–100
[2023-12-05] MEDS: IPRATROPIUM/ALBUTEROL 3 ML AMPUL.NEB INH ×4 (00:50→19:20)
[2023-12-05] MEDS: LEVOTHYROXINE 50 MCG TABLET GT (05:20)
[2023-12-05] MEDS: LACTULOSE 10 GM/15 ML SOLUTION GT ×3 (05:20→22:00)
[2023-12-05] MEDS: BUMETANIDE 1 MG TABLET GT ×2 (08:47→20:41)
[2023-12-05] MEDS: acetaZOLAMIDE 250 MG TABLET GT ×2 (08:47→20:40)
[2023-12-05] MEDS: FERROUS SULFATE 220 MG/5 ML ELIXIR 330 MG GT (08:50)
[2023-12-05] MEDS: levETIRAcetam 750 MG TABLET GT ×2 (08:51→20:41)
[2023-12-05] MEDS: VALPROIC ACID 250 MG/5 ML 1000 MG GT (08:52)
[2023-12-05] MEDS: POTASSIUM CHLORIDE 20 MEQ TAB.ER.PRT GT ×2 (08:52→20:41)
[2023-12-05] MEDS: MULTIVITAMIN 1 TAB TABLET GT (08:52)
[2023-12-05] MEDS: PANTOPRAZOLE 40 MG GRANPKT.DR GT (08:52)
[2023-12-06] VITALS (12 sets, daily range): BP systolic 104–131; BP diastolic 68–84; PULSE 71–97; RESP 21–27; TEMP 36.4–36.6; O2SAT 96–100
[2023-12-06] MEDS: IPRATROPIUM/ALBUTEROL 3 ML AMPUL.NEB INH ×4 (01:10→19:04)
[2023-12-06] MEDS: LEVOTHYROXINE 50 MCG TABLET GT (05:24)
[2023-12-06] MEDS: LACTULOSE 10 GM/15 ML SOLUTION GT ×3 (05:24→21:27)
[2023-12-06] MEDS: BUMETANIDE 1 MG TABLET GT ×2 (08:22→21:27)
[2023-12-06] MEDS: FERROUS SULFATE 220 MG/5 ML ELIXIR 330 MG GT (08:23)
[2023-12-06] MEDS: levETIRAcetam 750 MG TABLET GT ×2 (08:23→21:28)
[2023-12-06] MEDS: CARVEDILOL 3.125 MG TABLET GT (08:23)
[2023-12-06] MEDS: PANTOPRAZOLE 40 MG GRANPKT.DR GT (08:24)
[2023-12-06] MEDS: VALPROIC ACID 250 MG/5 ML 1000 MG GT (08:24)
[2023-12-06] MEDS: MULTIVITAMIN 1 TAB TABLET GT (08:24)
[2023-12-06] MEDS: POTASSIUM CHLORIDE 20 MEQ TAB.ER.PRT GT ×2 (08:24→21:28)
[2023-12-06] MEDS: acetaZOLAMIDE 250 MG TABLET GT ×2 (08:25→21:27)
[2023-12-07] VITALS (11 sets, daily range): BP systolic 99–123; BP diastolic 66–78; PULSE 56–100; RESP 22–28; TEMP 36.1–36.8; O2SAT 96–99
[2023-12-07] MEDS: IPRATROPIUM/ALBUTEROL 3 ML AMPUL.NEB INH ×4 (00:55→18:40)
[2023-12-07] MEDS: LEVOTHYROXINE 50 MCG TABLET GT (05:17)
[2023-12-07] MEDS: LACTULOSE 10 GM/15 ML SOLUTION GT ×3 (05:17→22:00)
[2023-12-07] MEDS: BUMETANIDE 1 MG TABLET GT ×2 (08:52→20:53)
[2023-12-07] MEDS: acetaZOLAMIDE 250 MG TABLET GT ×2 (08:52→20:53)
[2023-12-07] MEDS: FERROUS SULFATE 220 MG/5 ML ELIXIR 330 MG GT (08:53)
[2023-12-07] MEDS: CARVEDILOL 3.125 MG TABLET GT (08:53)
[2023-12-07] MEDS: levETIRAcetam 750 MG TABLET GT ×2 (08:54→20:54)
[2023-12-07] MEDS: MULTIVITAMIN 1 TAB TABLET GT (08:54)
[2023-12-07] MEDS: POTASSIUM CHLORIDE 20 MEQ TAB.ER.PRT GT ×2 (08:54→20:54)
[2023-12-07] MEDS: PANTOPRAZOLE 40 MG GRANPKT.DR GT (08:55)
[2023-12-07] MEDS: VALPROIC ACID 250 MG/5 ML 1000 MG GT (08:56)
[2023-12-08] VITALS (11 sets, daily range): BP systolic 94–124; BP diastolic 60–82; PULSE 62–89; RESP 20–26; TEMP 36.1–36.5; O2SAT 97–100
[2023-12-08] MEDS: IPRATROPIUM/ALBUTEROL 3 ML AMPUL.NEB INH ×4 (00:15→18:45)
[2023-12-08] MEDS: LACTULOSE 10 GM/15 ML SOLUTION GT ×3 (05:22→22:00)
[2023-12-08] MEDS: LEVOTHYROXINE 50 MCG TABLET GT (05:22)
[2023-12-08] MEDS: acetaZOLAMIDE 250 MG TABLET GT ×2 (08:49→21:28)
[2023-12-08] MEDS: BUMETANIDE 1 MG TABLET GT ×2 (08:50→21:29)
[2023-12-08] MEDS: CARVEDILOL 3.125 MG TABLET GT (08:51)
[2023-12-08] MEDS: MULTIVITAMIN 1 TAB TABLET GT (08:52)
[2023-12-08] MEDS: FERROUS SULFATE 220 MG/5 ML ELIXIR 330 MG GT (08:52)
[2023-12-08] MEDS: levETIRAcetam 750 MG TABLET GT ×2 (08:52→21:29)
[2023-12-08] MEDS: PANTOPRAZOLE 40 MG GRANPKT.DR GT (08:53)
[2023-12-08] MEDS: POTASSIUM CHLORIDE 20 MEQ TAB.ER.PRT GT ×2 (08:54→21:32)
[2023-12-08] MEDS: VALPROIC ACID 250 MG/5 ML 1000 MG GT (08:54)
--- NOTE | 2023-12-08 22:10 | PD.SAPROG ---
Progress Note - SubAcute DIAGNOSIS (1) Chronic respiratory failure with hypoxia: Status: Chronic (2) Dependent on ventilator: Status: Chronic (3) Congestive cardiac failure: Status: Chronic (4) Epilepsy, unspecified, intractable, without status epilepticus: Status: Chronic (5) Anemia: Status: Chronic (6) Hypothyroidism, unspecified: Status: Chronic (7) Developmental disorder of scholastic skills, unspecified: Status: Chronic (8) Age-related osteoporosis without current pathological fracture: Status: Chronic (9) Gastrostomy status: Status: Chronic (10) Tracheostomy status: Status: Chronic SUBJECTIVE Fever:: unchanged (low grade) GI:: none Shortness of Breath:: none GI:: no complaints Pain:: none OBJECTIVE Most recent vital signs: Last Vital Signs Temp 97.7 F 12/08/23 18:00 Pulse 80 12/08/23 21:29 Resp 24 H 12/08/23 18:45 BP 106/68 12/08/23 21:29 Pulse Ox 100 12/08/23 18:45 O2 Del Method Mechanical Ventilation 12/08/23 12:00 FiO2 35 12/08/23 18:45 Neurological:: awake Speech:: nods head and appropriate (Sometimes) Answers questions:: sometimes Respiratory:: lungs clear Cardiovascular: RRR Abdomen: soft and nontender Decubitus:: none Tracheostomy:: to ventilator Feeding per:: G tube Complaints:: none ASSESSMENT & PLAN Assessment: Patient with cognitive function deficits. ventilator dependent. No distress. Stable condition. Diagnosis and treatment reviewed. Pt does not tolerate weaning from Ventilator. Family updated in IDT. Pt.'s father is very supportive. Transient increase in leak around gastrostomy site with coffee-ground liquid positive for occult blood. Symptomatic ineffective hence patient transferred to ER 09/15/2023 for evaluation and management. Displacement of G-tube into the pyloric bulb seemed to be causing outflow obstruction which on repositioning and semi-deflating the tube balloon did resolve and pt received back later that night in a stable condition with G I consult. Fever finally resolved after antibiotics. now back to baseline stable status.Pt on mittens b/l for pulling on life sustaining tubings. Pt's father involved in pt care and kept informed. No new issues Plan: Current treatment reviewed and continued
[2023-12-08] MEDS: guaiFENesin Liq 100 MG/5 ML LIQUID GT (23:00)
[2023-12-09] VITALS (10 sets, daily range): BP systolic 94–148; BP diastolic 55–82; PULSE 65–93; RESP 20–26; TEMP 36.1–36.5; O2SAT 97–100
[2023-12-09] MEDS: IPRATROPIUM/ALBUTEROL 3 ML AMPUL.NEB INH ×4 (00:30→17:50)
[2023-12-09] MEDS: LACTULOSE 10 GM/15 ML SOLUTION GT ×3 (06:09→22:00)
[2023-12-09] MEDS: LEVOTHYROXINE 50 MCG TABLET GT (06:09)
[2023-12-09] MEDS: CARVEDILOL 3.125 MG TABLET GT (09:01)
[2023-12-09] MEDS: BUMETANIDE 1 MG TABLET GT ×2 (09:01→20:24)
[2023-12-09] MEDS: acetaZOLAMIDE 250 MG TABLET GT ×2 (09:01→20:23)
[2023-12-09] MEDS: POTASSIUM CHLORIDE 20 MEQ TAB.ER.PRT GT ×2 (09:02→20:26)
[2023-12-09] MEDS: levETIRAcetam 750 MG TABLET GT ×2 (09:02→20:25)
[2023-12-09] MEDS: PANTOPRAZOLE 40 MG GRANPKT.DR GT (09:04)
[2023-12-09] MEDS: MULTIVITAMIN 1 TAB TABLET GT (09:04)
[2023-12-09] MEDS: VALPROIC ACID 250 MG/5 ML 1000 MG GT (09:05)
[2023-12-09] MEDS: FERROUS SULFATE 220 MG/5 ML ELIXIR 330 MG GT (09:06)
[2023-12-10] VITALS (12 sets, daily range): BP systolic 98–121; BP diastolic 64–72; PULSE 64–99; RESP 19–27; TEMP 36.3–36.9; O2SAT 96–100
[2023-12-10] MEDS: IPRATROPIUM/ALBUTEROL 3 ML AMPUL.NEB INH ×4 (00:10→19:26)
[2023-12-10] MEDS: LACTULOSE 10 GM/15 ML SOLUTION GT ×2 (05:23→22:00)
[2023-12-10] MEDS: LEVOTHYROXINE 50 MCG TABLET GT (05:24)
[2023-12-10] MEDS: BUMETANIDE 1 MG TABLET GT ×2 (08:45→20:27)
[2023-12-10] MEDS: acetaZOLAMIDE 250 MG TABLET GT ×2 (08:45→20:27)
[2023-12-10] MEDS: levETIRAcetam 750 MG TABLET GT ×2 (08:46→20:28)
[2023-12-10] MEDS: FERROUS SULFATE 220 MG/5 ML ELIXIR 330 MG GT (08:46)
[2023-12-10] MEDS: CARVEDILOL 3.125 MG TABLET GT (08:46)
[2023-12-10] MEDS: VALPROIC ACID 250 MG/5 ML 1000 MG GT (08:47)
[2023-12-10] MEDS: POTASSIUM CHLORIDE 20 MEQ TAB.ER.PRT GT ×2 (08:47→20:28)
[2023-12-10] MEDS: MULTIVITAMIN 1 TAB TABLET GT (08:47)
[2023-12-10] MEDS: PANTOPRAZOLE 40 MG GRANPKT.DR GT (08:47)
--- NOTE | 2023-12-10 12:26 | PC.SS ---
Room Visit: Resident is laying in bed with head of the bed elevated with call light properly placed with no signs of distress. His father Jeremi is his conservator and his decision maker. Resident remains on vent with trach in place and GT for medication and nutrition. Resident will remain in current care as he has no changes in care or condition he will continue to have all subacute care needs met by staff. SSD will make daily contact with resident and monitor for changes in mood and behavior
[2023-12-11] VITALS (10 sets, daily range): BP systolic 100–118; BP diastolic 63–87; PULSE 62–90; RESP 20–26; TEMP 36–36.6; O2SAT 97–100
[2023-12-11] MEDS: IPRATROPIUM/ALBUTEROL 3 ML AMPUL.NEB INH ×4 (00:29→18:40)
[2023-12-11] MEDS: LACTULOSE 10 GM/15 ML SOLUTION GT ×3 (05:35→22:05)
[2023-12-11] MEDS: LEVOTHYROXINE 50 MCG TABLET GT (05:35)
[2023-12-11] MEDS: BUMETANIDE 1 MG TABLET GT ×2 (08:51→20:31)
[2023-12-11] MEDS: acetaZOLAMIDE 250 MG TABLET GT ×2 (08:51→20:31)
[2023-12-11] MEDS: CARVEDILOL 3.125 MG TABLET GT (08:51)
[2023-12-11] MEDS: FERROUS SULFATE 220 MG/5 ML ELIXIR 330 MG GT (08:52)
[2023-12-11] MEDS: MULTIVITAMIN 1 TAB TABLET GT (08:53)
[2023-12-11] MEDS: PANTOPRAZOLE 40 MG GRANPKT.DR GT (08:53)
[2023-12-11] MEDS: POTASSIUM CHLORIDE 20 MEQ TAB.ER.PRT GT ×2 (08:53→20:31)
[2023-12-11] MEDS: VALPROIC ACID 250 MG/5 ML 1000 MG GT (08:54)
[2023-12-11] MEDS: levETIRAcetam 750 MG TABLET GT ×2 (09:00→20:31)
[2023-12-12] VITALS (11 sets, daily range): BP systolic 95–114; BP diastolic 66–80; PULSE 66–85; RESP 21–28; TEMP 36.1–36.6; O2SAT 97–99
[2023-12-12] MEDS: IPRATROPIUM/ALBUTEROL 3 ML AMPUL.NEB INH ×4 (00:10→18:15)
[2023-12-12] MEDS: LACTULOSE 10 GM/15 ML SOLUTION GT ×3 (05:25→21:05)
[2023-12-12] MEDS: LEVOTHYROXINE 50 MCG TABLET GT (05:25)
[2023-12-12] MEDS: acetaZOLAMIDE 250 MG TABLET GT ×2 (08:50→20:10)
[2023-12-12] MEDS: levETIRAcetam 750 MG TABLET GT ×2 (08:51→20:10)
[2023-12-12] MEDS: BUMETANIDE 1 MG TABLET GT ×2 (08:51→20:10)
[2023-12-12] MEDS: PANTOPRAZOLE 40 MG GRANPKT.DR GT (08:51)
[2023-12-12] MEDS: MULTIVITAMIN 1 TAB TABLET GT (08:51)
[2023-12-12] MEDS: FERROUS SULFATE 220 MG/5 ML ELIXIR 330 MG GT (08:51)
[2023-12-12] MEDS: VALPROIC ACID 250 MG/5 ML 1000 MG GT (08:52)
[2023-12-12] MEDS: POTASSIUM CHLORIDE 20 MEQ TAB.ER.PRT GT ×2 (08:52→20:11)
--- NOTE | 2023-12-12 16:30 | PD.SAPROG ---
Progress Note - SubAcute DIAGNOSIS (1) Chronic respiratory failure with hypoxia: Status: Chronic (2) Dependent on ventilator: Status: Chronic (3) Congestive cardiac failure: Status: Chronic (4) Epilepsy, unspecified, intractable, without status epilepticus: Status: Chronic (5) Anemia: Status: Chronic (6) Hypothyroidism, unspecified: Status: Chronic (7) Developmental disorder of scholastic skills, unspecified: Status: Chronic (8) Age-related osteoporosis without current pathological fracture: Status: Chronic (9) Gastrostomy status: Status: Chronic (10) Tracheostomy status: Status: Chronic SUBJECTIVE Fever:: unchanged (low grade) GI:: none Shortness of Breath:: none GI:: no complaints Pain:: none OBJECTIVE Most recent vital signs: Last Vital Signs Temp 97.2 F 12/12/23 12:00 Pulse 85 12/12/23 12:00 Resp 23 H 12/12/23 12:00 BP 112/76 12/12/23 12:00 Pulse Ox 99 12/12/23 11:05 O2 Del Method Mechanical Ventilation 12/12/23 05:47 FiO2 34 12/12/23 11:05 Neurological:: awake Speech:: nods head and appropriate (Sometimes) Answers questions:: sometimes Respiratory:: lungs clear Cardiovascular: RRR Abdomen: soft and nontender Decubitus:: none Tracheostomy:: to ventilator Feeding per:: G tube Complaints:: none ASSESSMENT & PLAN Assessment: Patient with cognitive function deficits. ventilator dependent. No distress. Stable condition. Diagnosis and treatment reviewed. Pt does not tolerate weaning from Ventilator. Family updated in IDT. Pt.'s father is very supportive. Transient increase in leak around gastrostomy site with coffee-ground liquid positive for occult blood. Symptomatic ineffective hence patient transferred to ER 09/15/2023 for evaluation and management. Displacement of G-tube into the pyloric bulb seemed to be causing outflow obstruction which on repositioning and semi-deflating the tube balloon did resolve and pt received back later that night in a stable condition with G I consult. Fever finally resolved after antibiotics. now back to baseline stable status.Pt on mittens b/l for pulling on life sustaining tubings. Pt's father involved in pt care and kept informed. No new issues Plan: Current treatment reviewed and continued
[2023-12-12] MEDS: LOSARTAN 25 MG TABLET GT (20:11)
[2023-12-13] VITALS (10 sets, daily range): BP systolic 95–137; BP diastolic 51–78; PULSE 64–108; RESP 20–28; TEMP 36.1–36.4; O2SAT 98–99
[2023-12-13] MEDS: IPRATROPIUM/ALBUTEROL 3 ML AMPUL.NEB INH ×4 (01:11→18:15)
[2023-12-13] MEDS: LACTULOSE 10 GM/15 ML SOLUTION GT ×2 (05:24→14:38)
[2023-12-13] MEDS: LEVOTHYROXINE 50 MCG TABLET GT (05:24)
[2023-12-13] MEDS: BUMETANIDE 1 MG TABLET GT ×2 (08:45→20:23)
[2023-12-13] MEDS: acetaZOLAMIDE 250 MG TABLET GT ×2 (08:45→20:22)
[2023-12-13] MEDS: FERROUS SULFATE 220 MG/5 ML ELIXIR 330 MG GT (08:46)
[2023-12-13] MEDS: levETIRAcetam 750 MG TABLET GT ×2 (08:46→20:23)
[2023-12-13] MEDS: MULTIVITAMIN 1 TAB TABLET GT (08:46)
[2023-12-13] MEDS: VALPROIC ACID 250 MG/5 ML 1000 MG GT (08:47)
[2023-12-13] MEDS: POTASSIUM CHLORIDE 20 MEQ TAB.ER.PRT GT ×2 (08:47→20:23)
[2023-12-13] MEDS: ACETAMINOPHEN 325 MG TABLET 650 MG GT (08:48)
[2023-12-13] MEDS: guaiFENesin Liq 100 MG/5 ML LIQUID GT (08:48)
[2023-12-14] VITALS (13 sets, daily range): BP systolic 99–113; BP diastolic 65–74; PULSE 72–99; RESP 23–28; TEMP 36.2–36.8; O2SAT 98–99
[2023-12-14] MEDS: IPRATROPIUM/ALBUTEROL 3 ML AMPUL.NEB INH ×4 (00:10→18:15)
[2023-12-14] MEDS: LEVOTHYROXINE 50 MCG TABLET GT (05:05)
[2023-12-14] MEDS: LACTULOSE 10 GM/15 ML SOLUTION GT ×3 (05:05→22:08)
[2023-12-14] MEDS: BUMETANIDE 1 MG TABLET GT ×2 (09:05→20:13)
[2023-12-14] MEDS: acetaZOLAMIDE 250 MG TABLET GT ×2 (09:05→20:13)
[2023-12-14] MEDS: levETIRAcetam 750 MG TABLET GT ×2 (09:06→20:13)
[2023-12-14] MEDS: PANTOPRAZOLE 40 MG GRANPKT.DR GT (09:06)
[2023-12-14] MEDS: FERROUS SULFATE 220 MG/5 ML ELIXIR 330 MG GT (09:06)
[2023-12-14] MEDS: POTASSIUM CHLORIDE 20 MEQ TAB.ER.PRT GT ×2 (09:06→20:14)
[2023-12-14] MEDS: MULTIVITAMIN 1 TAB TABLET GT (09:06)
[2023-12-14] MEDS: VALPROIC ACID 250 MG/5 ML 1000 MG GT (09:06)
--- NOTE | 2023-12-14 16:15 | PC.SS ---
IDT Note: Resident remains conserved by his father Jeremi, he attended telephone conference via telephone. Report was read to Jeremi, he had no questions or concerns, resident remains stable with no changes. He will continue to have all subacute care needs met by staff.
[2023-12-14] MEDS: LOSARTAN 25 MG TABLET GT (20:13)
[2023-12-15] VITALS (11 sets, daily range): BP systolic 93–117; BP diastolic 55–74; PULSE 73–99; RESP 22–28; TEMP 36.1–36.6; O2SAT 97–99
[2023-12-15] MEDS: IPRATROPIUM/ALBUTEROL 3 ML AMPUL.NEB INH ×4 (01:12→19:35)
[2023-12-15] MEDS: LACTULOSE 10 GM/15 ML SOLUTION GT ×3 (05:08→22:00)
[2023-12-15] MEDS: LEVOTHYROXINE 50 MCG TABLET GT (05:09)
[2023-12-15] MEDS: BUMETANIDE 1 MG TABLET GT ×2 (08:46→20:41)
[2023-12-15] MEDS: acetaZOLAMIDE 250 MG TABLET GT ×2 (08:46→20:41)
[2023-12-15] MEDS: MULTIVITAMIN 1 TAB TABLET GT (08:47)
[2023-12-15] MEDS: FERROUS SULFATE 220 MG/5 ML ELIXIR 330 MG GT (08:47)
[2023-12-15] MEDS: levETIRAcetam 750 MG TABLET GT ×2 (08:47→20:41)
[2023-12-15] MEDS: VALPROIC ACID 250 MG/5 ML 1000 MG GT (08:48)
[2023-12-15] MEDS: POTASSIUM CHLORIDE 20 MEQ TAB.ER.PRT GT ×2 (08:48→20:42)
[2023-12-16] VITALS (10 sets, daily range): BP systolic 91–133; BP diastolic 63–85; PULSE 63–93; RESP 20–25; TEMP 36–36.8; O2SAT 97–99
[2023-12-16] MEDS: IPRATROPIUM/ALBUTEROL 3 ML AMPUL.NEB INH ×4 (04:36→18:35)
[2023-12-16] MEDS: LACTULOSE 10 GM/15 ML SOLUTION GT ×2 (05:35→22:05)
[2023-12-16] MEDS: LEVOTHYROXINE 50 MCG TABLET GT (05:35)
[2023-12-16] MEDS: acetaZOLAMIDE 250 MG TABLET GT ×2 (08:59→20:18)
[2023-12-16] MEDS: BUMETANIDE 1 MG TABLET GT ×2 (08:59→20:18)
[2023-12-16] MEDS: CARVEDILOL 3.125 MG TABLET GT (08:59)
[2023-12-16] MEDS: FERROUS SULFATE 220 MG/5 ML ELIXIR 330 MG GT (08:59)
[2023-12-16] MEDS: MULTIVITAMIN 1 TAB TABLET GT (09:00)
[2023-12-16] MEDS: levETIRAcetam 750 MG TABLET GT ×2 (09:00→20:18)
[2023-12-16] MEDS: PANTOPRAZOLE 40 MG GRANPKT.DR GT (09:00)
[2023-12-16] MEDS: POTASSIUM CHLORIDE 20 MEQ TAB.ER.PRT GT ×2 (09:01→20:19)
[2023-12-16] MEDS: VALPROIC ACID 250 MG/5 ML 1000 MG GT (09:01)
[2023-12-16] MEDS: LOSARTAN 25 MG TABLET GT (20:18)
--- NOTE | 2023-12-16 21:57 | PD.SAPROG ---
Progress Note - SubAcute DIAGNOSIS (1) Chronic respiratory failure with hypoxia: Status: Chronic (2) Dependent on ventilator: Status: Chronic (3) Congestive cardiac failure: Status: Chronic (4) Epilepsy, unspecified, intractable, without status epilepticus: Status: Chronic (5) Anemia: Status: Chronic (6) Hypothyroidism, unspecified: Status: Chronic (7) Developmental disorder of scholastic skills, unspecified: Status: Chronic (8) Age-related osteoporosis without current pathological fracture: Status: Chronic (9) Gastrostomy status: Status: Chronic (10) Tracheostomy status: Status: Chronic SUBJECTIVE Fever:: unchanged (low grade) GI:: none Shortness of Breath:: none GI:: no complaints Pain:: none OBJECTIVE Most recent vital signs: Last Vital Signs Temp 98.3 F 12/16/23 18:00 Pulse 89 12/16/23 20:18 Resp 23 H 12/16/23 18:35 BP 114/73 12/16/23 20:18 Pulse Ox 99 12/16/23 18:35 O2 Del Method Mechanical Ventilation 12/16/23 18:00 FiO2 35 12/16/23 18:35 Neurological:: awake Speech:: nods head and appropriate (Sometimes) Answers questions:: sometimes Respiratory:: lungs clear Cardiovascular: RRR Abdomen: soft and nontender Decubitus:: none Tracheostomy:: to ventilator Feeding per:: G tube Complaints:: none ASSESSMENT & PLAN Assessment: Patient with cognitive function deficits. ventilator dependent. No distress. Stable condition. Diagnosis and treatment reviewed. Pt does not tolerate weaning from Ventilator. Family updated in IDT. Pt.'s father is very supportive. Transient increase in leak around gastrostomy site with coffee-ground liquid positive for occult blood. Symptomatic ineffective hence patient transferred to ER 09/15/2023 for evaluation and management. Displacement of G-tube into the pyloric bulb seemed to be causing outflow obstruction which on repositioning and semi-deflating the tube balloon did resolve and pt received back later that night in a stable condition with G I consult. Fever finally resolved after antibiotics. now back to baseline stable status.Pt on mittens b/l for pulling on life sustaining tubings. Pt's father involved in pt care and kept informed. No new issues Plan: Current treatment reviewed and continued
[2023-12-17] VITALS (11 sets, daily range): BP systolic 89–124; BP diastolic 60–78; PULSE 77–90; RESP 20–27; TEMP 36.1–36.6; O2SAT 98–99
[2023-12-17] MEDS: IPRATROPIUM/ALBUTEROL 3 ML AMPUL.NEB INH ×4 (00:15→18:43)
[2023-12-17] MEDS: LACTULOSE 10 GM/15 ML SOLUTION GT ×3 (05:30→21:55)
[2023-12-17] MEDS: LEVOTHYROXINE 50 MCG TABLET GT (05:30)
--- NOTE | 2023-12-17 08:07 | PC.NURSE ---
Resident on pantoprazole 40 mg, not covered by insurance , pharmacy recommended famotidine [address] Lackey and he agreed.
[2023-12-17] MEDS: acetaZOLAMIDE 250 MG TABLET GT ×2 (09:42→20:35)
[2023-12-17] MEDS: BUMETANIDE 1 MG TABLET GT ×2 (09:42→20:36)
[2023-12-17] MEDS: VALPROIC ACID 250 MG/5 ML 1000 MG GT (09:43)
[2023-12-17] MEDS: FERROUS SULFATE 220 MG/5 ML ELIXIR 330 MG GT (09:43)
[2023-12-17] MEDS: PANTOPRAZOLE 40 MG GRANPKT.DR GT (09:43)
[2023-12-17] MEDS: MULTIVITAMIN 1 TAB TABLET GT (09:43)
[2023-12-17] MEDS: POTASSIUM CHLORIDE 20 MEQ TAB.ER.PRT GT ×2 (09:43→20:36)
--- NOTE | 2023-12-17 16:04 | PC.SS ---
Room visit: Resident is laying in bed with head of the bed elevated with call light properly placed. Resident has no changes in care or condition, remains on vent with trach in place and GT in place for medication and nutrition. Resident will remain in current care and will continue to have all subacute care needs met by staff.
[2023-12-17] MEDS: levETIRAcetam 750 MG TABLET GT (20:35)
[2023-12-18] VITALS (11 sets, daily range): BP systolic 91–109; BP diastolic 55–70; PULSE 68–93; RESP 20–32; TEMP 36.3–37.1; O2SAT 97–99
[2023-12-18] MEDS: IPRATROPIUM/ALBUTEROL 3 ML AMPUL.NEB INH ×4 (00:31→18:31)
[2023-12-18] MEDS: LACTULOSE 10 GM/15 ML SOLUTION GT ×3 (05:35→21:24)
[2023-12-18] MEDS: LEVOTHYROXINE 50 MCG TABLET GT (05:35)
[2023-12-18] MEDS: levETIRAcetam 750 MG TABLET GT ×2 (09:21→21:24)
[2023-12-18] MEDS: BUMETANIDE 1 MG TABLET GT ×2 (09:22→21:24)
[2023-12-18] MEDS: acetaZOLAMIDE 250 MG TABLET GT ×2 (09:22→21:24)
[2023-12-18] MEDS: MULTIVITAMIN 1 TAB TABLET GT (09:23)
[2023-12-18] MEDS: FERROUS SULFATE 220 MG/5 ML ELIXIR 330 MG GT (09:23)
[2023-12-18] MEDS: VALPROIC ACID 250 MG/5 ML 1000 MG GT (09:24)
[2023-12-18] MEDS: PANTOPRAZOLE 40 MG GRANPKT.DR GT (09:24)
[2023-12-18] MEDS: POTASSIUM CHLORIDE 20 MEQ TAB.ER.PRT GT ×2 (09:24→21:25)
[2023-12-19] VITALS (11 sets, daily range): BP systolic 94–117; BP diastolic 53–74; PULSE 67–99; RESP 20–30; TEMP 36.3–36.6; O2SAT 95–100
[2023-12-19] MEDS: IPRATROPIUM/ALBUTEROL 3 ML AMPUL.NEB INH ×4 (01:06→18:30)
[2023-12-19] MEDS: LACTULOSE 10 GM/15 ML SOLUTION GT ×3 (06:31→21:56)
[2023-12-19] MEDS: LEVOTHYROXINE 50 MCG TABLET GT (06:31)
[2023-12-19] MEDS: acetaZOLAMIDE 250 MG TABLET GT ×2 (08:40→20:32)
[2023-12-19] MEDS: BUMETANIDE 1 MG TABLET GT ×2 (08:40→20:32)
[2023-12-19] MEDS: levETIRAcetam 750 MG TABLET GT ×2 (08:40→20:32)
[2023-12-19] MEDS: CARVEDILOL 3.125 MG TABLET GT (08:41)
[2023-12-19] MEDS: FAMOTIDINE 20 MG TABLET GT (08:42)
[2023-12-19] MEDS: MULTIVITAMIN 1 TAB TABLET GT (08:42)
[2023-12-19] MEDS: FERROUS SULFATE 220 MG/5 ML ELIXIR 330 MG GT (08:42)
[2023-12-19] MEDS: POTASSIUM CHLORIDE 20 MEQ TAB.ER.PRT GT ×2 (08:42→20:32)
[2023-12-19] MEDS: VALPROIC ACID 250 MG/5 ML 1000 MG GT (08:43)
[2023-12-20] VITALS (11 sets, daily range): BP systolic 97–117; BP diastolic 56–68; PULSE 75–92; RESP 20–24; TEMP 36.1–36.4; O2SAT 96–99
[2023-12-20] MEDS: IPRATROPIUM/ALBUTEROL 3 ML AMPUL.NEB INH ×4 (00:50→19:12)
[2023-12-20] MEDS: LACTULOSE 10 GM/15 ML SOLUTION GT ×3 (05:30→21:33)
[2023-12-20] MEDS: LEVOTHYROXINE 50 MCG TABLET GT (05:30)
--- NOTE | 2023-12-20 08:26 | CHAP ---
Patient was visited by a Spiritual Care Volunteer on 12/17/2023 between 0915 and 1200 and received comfort, encouragement and/or prayer.
[2023-12-20] MEDS: levETIRAcetam 750 MG TABLET GT ×2 (08:53→21:33)
[2023-12-20] MEDS: acetaZOLAMIDE 250 MG TABLET GT ×2 (08:53→21:33)
[2023-12-20] MEDS: BUMETANIDE 1 MG TABLET GT ×2 (08:53→21:33)
[2023-12-20] MEDS: FERROUS SULFATE 220 MG/5 ML ELIXIR 330 MG GT (08:54)
[2023-12-20] MEDS: FAMOTIDINE 20 MG TABLET GT (08:54)
[2023-12-20] MEDS: VALPROIC ACID 250 MG/5 ML 1000 MG GT (08:55)
[2023-12-20] MEDS: POTASSIUM CHLORIDE 20 MEQ TAB.ER.PRT GT ×2 (08:55→21:34)
[2023-12-20] MEDS: MULTIVITAMIN 1 TAB TABLET GT (08:55)
--- NOTE | 2023-12-20 20:06 | PD.SAPROG ---
Progress Note - SubAcute DIAGNOSIS (1) Chronic respiratory failure with hypoxia: Status: Chronic (2) Dependent on ventilator: Status: Chronic (3) Congestive cardiac failure: Status: Chronic (4) Epilepsy, unspecified, intractable, without status epilepticus: Status: Chronic (5) Anemia: Status: Chronic (6) Hypothyroidism, unspecified: Status: Chronic (7) Developmental disorder of scholastic skills, unspecified: Status: Chronic (8) Age-related osteoporosis without current pathological fracture: Status: Chronic (9) Gastrostomy status: Status: Chronic (10) Tracheostomy status: Status: Chronic SUBJECTIVE Fever:: unchanged (low grade) GI:: none Shortness of Breath:: none GI:: no complaints Pain:: none OBJECTIVE Most recent vital signs: Last Vital Signs Temp 97.6 F 12/20/23 18:00 Pulse 83 12/20/23 18:00 Resp 23 H 12/20/23 18:00 BP 108/61 12/20/23 18:00 Pulse Ox 96 12/20/23 18:00 O2 Del Method Mechanical Ventilation 12/20/23 18:00 FiO2 35 12/20/23 12:08 Neurological:: awake Speech:: nods head and appropriate (Sometimes) Answers questions:: sometimes Respiratory:: lungs clear Cardiovascular: RRR Abdomen: soft and nontender Decubitus:: none Tracheostomy:: to ventilator Feeding per:: G tube Complaints:: none ASSESSMENT & PLAN Assessment: Patient with cognitive function deficits. ventilator dependent. No distress. Stable condition. Diagnosis and treatment reviewed. Pt does not tolerate weaning from Ventilator. Family updated in IDT. Pt.'s father is very supportive. Transient increase in leak around gastrostomy site with coffee-ground liquid positive for occult blood. Symptomatic ineffective hence patient transferred to ER 09/15/2023 for evaluation and management. Displacement of G-tube into the pyloric bulb seemed to be causing outflow obstruction which on repositioning and semi-deflating the tube balloon did resolve and pt received back later that night in a stable condition with G I consult. now back to baseline stable status.Pt on mittens b/l for pulling on life sustaining tubings. Pt's father involved in pt care and kept informed. No new issues Plan: Current treatment reviewed and continued
[2023-12-20] MEDS: LOSARTAN 25 MG TABLET GT (21:34)
[2023-12-21] VITALS (10 sets, daily range): BP systolic 95–102; BP diastolic 57–62; PULSE 65–98; RESP 20–25; TEMP 36.4–37; O2SAT 98–100
[2023-12-21] MEDS: IPRATROPIUM/ALBUTEROL 3 ML AMPUL.NEB INH ×4 (00:33→19:02)
[2023-12-21] MEDS: LACTULOSE 10 GM/15 ML SOLUTION GT ×3 (05:24→22:29)
[2023-12-21] MEDS: LEVOTHYROXINE 50 MCG TABLET GT (05:24)
[2023-12-21] MEDS: acetaZOLAMIDE 250 MG TABLET GT ×2 (08:24→20:36)
[2023-12-21] MEDS: levETIRAcetam 750 MG TABLET GT ×2 (08:24→20:35)
[2023-12-21] MEDS: BUMETANIDE 1 MG TABLET GT ×2 (08:24→20:36)
[2023-12-21] MEDS: FAMOTIDINE 20 MG TABLET GT (08:25)
[2023-12-21] MEDS: VALPROIC ACID 250 MG/5 ML 1000 MG GT (08:26)
[2023-12-21] MEDS: MULTIVITAMIN 1 TAB TABLET GT (08:26)
[2023-12-21] MEDS: POTASSIUM CHLORIDE 20 MEQ TAB.ER.PRT GT ×2 (08:26→20:36)
[2023-12-21] MEDS: FERROUS SULFATE 220 MG/5 ML ELIXIR 330 MG GT (08:26)
[2023-12-22] VITALS (11 sets, daily range): BP systolic 93–115; BP diastolic 60–73; PULSE 72–96; RESP 20–28; TEMP 36.3–37.1; O2SAT 97–99
[2023-12-22] MEDS: IPRATROPIUM/ALBUTEROL 3 ML AMPUL.NEB INH ×4 (01:00→19:23)
[2023-12-22] MEDS: LACTULOSE 10 GM/15 ML SOLUTION GT ×3 (05:16→21:00)
[2023-12-22] MEDS: LEVOTHYROXINE 50 MCG TABLET GT (05:16)
[2023-12-22] MEDS: BUMETANIDE 1 MG TABLET GT ×2 (08:40→20:42)
[2023-12-22] MEDS: acetaZOLAMIDE 250 MG TABLET GT ×2 (08:40→20:42)
[2023-12-22] MEDS: levETIRAcetam 750 MG TABLET GT ×2 (08:40→20:41)
[2023-12-22] MEDS: FAMOTIDINE 20 MG TABLET GT (08:41)
[2023-12-22] MEDS: POTASSIUM CHLORIDE 20 MEQ TAB.ER.PRT GT ×2 (08:42→20:43)
[2023-12-22] MEDS: MULTIVITAMIN 1 TAB TABLET GT (08:42)
[2023-12-22] MEDS: FERROUS SULFATE 220 MG/5 ML ELIXIR 330 MG GT (08:42)
[2023-12-22] MEDS: VALPROIC ACID 250 MG/5 ML 1000 MG GT (08:43)
[2023-12-22] MEDS: LOSARTAN 25 MG TABLET GT (20:42)
[2023-12-23] VITALS (10 sets, daily range): BP systolic 93–129; BP diastolic 59–76; PULSE 65–94; RESP 20–24; TEMP 36.1–36.9; O2SAT 97–99
[2023-12-23] MEDS: IPRATROPIUM/ALBUTEROL 3 ML AMPUL.NEB INH ×4 (01:01→19:16)
[2023-12-23] MEDS: LEVOTHYROXINE 50 MCG TABLET GT (05:27)
[2023-12-23] MEDS: LACTULOSE 10 GM/15 ML SOLUTION GT ×3 (05:27→22:00)
[2023-12-23] MEDS: CARVEDILOL 3.125 MG TABLET GT (09:45)
[2023-12-23] MEDS: acetaZOLAMIDE 250 MG TABLET GT ×2 (09:45→20:27)
[2023-12-23] MEDS: levETIRAcetam 750 MG TABLET GT ×3 (09:45→20:27)
[2023-12-23] MEDS: BUMETANIDE 1 MG TABLET GT ×2 (09:45→20:27)
[2023-12-23] MEDS: FAMOTIDINE 20 MG TABLET GT (09:45)
[2023-12-23] MEDS: MULTIVITAMIN 1 TAB TABLET GT (09:46)
[2023-12-23] MEDS: FERROUS SULFATE 220 MG/5 ML ELIXIR 330 MG GT (09:46)
[2023-12-23] MEDS: POTASSIUM CHLORIDE 20 MEQ TAB.ER.PRT GT ×2 (09:46→20:27)
[2023-12-23] MEDS: VALPROIC ACID 250 MG/5 ML 1000 MG GT (09:47)
[2023-12-23] MEDS: guaiFENesin Liq 100 MG/5 ML LIQUID GT (21:45)
[2023-12-24] VITALS (12 sets, daily range): BP systolic 99–144; BP diastolic 61–83; PULSE 58–120; RESP 20–29; TEMP 36.3–36.6; O2SAT 98–99
[2023-12-24] MEDS: IPRATROPIUM/ALBUTEROL 3 ML AMPUL.NEB INH ×4 (00:54→19:39)
[2023-12-24] MEDS: LACTULOSE 10 GM/15 ML SOLUTION GT ×3 (05:43→22:00)
[2023-12-24] MEDS: LEVOTHYROXINE 50 MCG TABLET GT (05:43)
[2023-12-24] MEDS: acetaZOLAMIDE 250 MG TABLET GT ×2 (08:30→20:33)
[2023-12-24] MEDS: BUMETANIDE 1 MG TABLET GT ×2 (08:30→20:33)
[2023-12-24] MEDS: levETIRAcetam 750 MG TABLET GT ×2 (08:30→20:35)
[2023-12-24] MEDS: FERROUS SULFATE 220 MG/5 ML ELIXIR 330 MG GT (08:31)
[2023-12-24] MEDS: CARVEDILOL 3.125 MG TABLET GT (08:31)
[2023-12-24] MEDS: FAMOTIDINE 20 MG TABLET GT (08:31)
[2023-12-24] MEDS: POTASSIUM CHLORIDE 20 MEQ TAB.ER.PRT GT ×2 (08:32→20:35)
[2023-12-24] MEDS: MULTIVITAMIN 1 TAB TABLET GT (08:32)
[2023-12-24] MEDS: VALPROIC ACID 250 MG/5 ML 1000 MG GT (08:32)
--- NOTE | 2023-12-24 15:23 | PC.SS ---
Room visit: Resident remains conserved by his father and is a CV client. Resident is unable to make needs known. Resident is laying in bed with head of the bed elevated with call light properly placed with no signs of distress. Resident remains on vent with trach in place and GT for medication and nutrition. Resident has no changes in care or condition, resident will remain in current care and will continue to have all subacute care needs met by staff. This SSD to make daily contact and monitor for changes in mod and behavior and will offer support as needed.
[2023-12-24] MEDS: LOSARTAN 25 MG TABLET GT (20:35)
--- NOTE | 2023-12-24 21:54 | PD.SAPROG ---
Progress Note - SubAcute DIAGNOSIS (1) Chronic respiratory failure with hypoxia: Status: Chronic (2) Dependent on ventilator: Status: Chronic (3) Congestive cardiac failure: Status: Chronic (4) Epilepsy, unspecified, intractable, without status epilepticus: Status: Chronic (5) Anemia: Status: Chronic (6) Hypothyroidism, unspecified: Status: Chronic (7) Developmental disorder of scholastic skills, unspecified: Status: Chronic (8) Age-related osteoporosis without current pathological fracture: Status: Chronic (9) Gastrostomy status: Status: Chronic (10) Tracheostomy status: Status: Chronic SUBJECTIVE Fever:: unchanged (low grade) GI:: none Shortness of Breath:: none GI:: no complaints Pain:: none OBJECTIVE Most recent vital signs: Last Vital Signs Temp 98 F 12/24/23 17:01 Pulse 86 12/24/23 20:35 Resp 23 H 12/24/23 19:39 BP 122/76 12/24/23 20:35 Pulse Ox 99 12/24/23 19:39 O2 Del Method Mechanical Ventilation 12/24/23 17:01 FiO2 35 12/24/23 19:39 Neurological:: awake Speech:: nods head and appropriate (Sometimes) Answers questions:: sometimes Respiratory:: lungs clear Cardiovascular: RRR Abdomen: soft and nontender Decubitus:: none Tracheostomy:: to ventilator Feeding per:: G tube Complaints:: none ASSESSMENT & PLAN Assessment: Patient with cognitive function deficits. ventilator dependent. No distress. Stable condition. Diagnosis and treatment reviewed. Pt does not tolerate weaning from Ventilator. Family updated in IDT. Pt.'s father is very supportive. Transient increase in leak around gastrostomy site with coffee-ground liquid positive for occult blood. Symptomatic ineffective hence patient transferred to ER 09/15/2023 for evaluation and management. Displacement of G-tube into the pyloric bulb seemed to be causing outflow obstruction which on repositioning and semi-deflating the tube balloon did resolve and pt received back later that night in a stable condition with G I consult. now back to baseline stable status.Pt on mittens b/l for pulling on life sustaining tubings. Pt's father involved in pt care and kept informed. No new issues Plan: Current treatment reviewed and continued
[2023-12-25] VITALS (10 sets, daily range): BP systolic 107–124; BP diastolic 67–82; PULSE 71–96; RESP 20–28; TEMP 36.2–36.8; O2SAT 97–99
[2023-12-25] MEDS: IPRATROPIUM/ALBUTEROL 3 ML AMPUL.NEB INH ×4 (01:10→18:43)
[2023-12-25] MEDS: LEVOTHYROXINE 50 MCG TABLET GT (05:45)
[2023-12-25] MEDS: LACTULOSE 10 GM/15 ML SOLUTION GT ×3 (05:45→22:09)
[2023-12-25] MEDS: acetaZOLAMIDE 250 MG TABLET GT ×2 (09:01→20:31)
[2023-12-25] MEDS: CARVEDILOL 3.125 MG TABLET GT (09:01)
[2023-12-25] MEDS: BUMETANIDE 1 MG TABLET GT ×2 (09:01→20:31)
[2023-12-25] MEDS: FERROUS SULFATE 220 MG/5 ML ELIXIR 330 MG GT (09:02)
[2023-12-25] MEDS: FAMOTIDINE 20 MG TABLET GT (09:02)
[2023-12-25] MEDS: levETIRAcetam 750 MG TABLET GT ×2 (09:02→20:31)
[2023-12-25] MEDS: POTASSIUM CHLORIDE 20 MEQ TAB.ER.PRT GT ×2 (09:03→20:31)
[2023-12-25] MEDS: MULTIVITAMIN 1 TAB TABLET GT (09:03)
[2023-12-25] MEDS: VALPROIC ACID 250 MG/5 ML 1000 MG GT (09:04)
[2023-12-26] VITALS (10 sets, daily range): BP systolic 93–125; BP diastolic 57–80; PULSE 63–90; RESP 22–30; TEMP 36.6–36.7; O2SAT 97–99
[2023-12-26] MEDS: IPRATROPIUM/ALBUTEROL 3 ML AMPUL.NEB INH ×4 (00:19→18:15)
[2023-12-26] MEDS: LEVOTHYROXINE 50 MCG TABLET GT (05:35)
[2023-12-26] MEDS: LACTULOSE 10 GM/15 ML SOLUTION GT ×3 (05:35→21:00)
[2023-12-26] MEDS: CARVEDILOL 3.125 MG TABLET GT (09:27)
[2023-12-26] MEDS: BUMETANIDE 1 MG TABLET GT ×2 (09:27→20:27)
[2023-12-26] MEDS: acetaZOLAMIDE 250 MG TABLET GT ×2 (09:27→20:27)
[2023-12-26] MEDS: MULTIVITAMIN 1 TAB TABLET GT (09:28)
[2023-12-26] MEDS: FAMOTIDINE 20 MG TABLET GT (09:28)
[2023-12-26] MEDS: POTASSIUM CHLORIDE 20 MEQ TAB.ER.PRT GT ×2 (09:28→20:28)
[2023-12-26] MEDS: FERROUS SULFATE 220 MG/5 ML ELIXIR 330 MG GT (09:28)
[2023-12-26] MEDS: levETIRAcetam 750 MG TABLET GT ×2 (09:28→20:28)
[2023-12-26] MEDS: VALPROIC ACID 250 MG/5 ML 1000 MG GT (09:28)
--- NOTE | 2023-12-26 19:30 | PD.SAPROG ---
Progress Note - SubAcute DIAGNOSIS (1) Chronic respiratory failure with hypoxia: Status: Chronic (2) Dependent on ventilator: Status: Chronic (3) Congestive cardiac failure: Status: Chronic (4) Epilepsy, unspecified, intractable, without status epilepticus: Status: Chronic (5) Anemia: Status: Chronic (6) Hypothyroidism, unspecified: Status: Chronic (7) Developmental disorder of scholastic skills, unspecified: Status: Chronic (8) Age-related osteoporosis without current pathological fracture: Status: Chronic (9) Gastrostomy status: Status: Chronic (10) Tracheostomy status: Status: Chronic SUBJECTIVE Fever:: unchanged (low grade) GI:: none Shortness of Breath:: none GI:: no complaints Pain:: none OBJECTIVE Most recent vital signs: Last Vital Signs Temp 97.8 F 12/26/23 18:00 Pulse 66 12/26/23 18:00 Resp 28 H 12/26/23 18:00 BP 103/57 L 12/26/23 18:00 Pulse Ox 99 12/26/23 18:00 O2 Del Method Mechanical Ventilation 12/26/23 18:00 FiO2 35 12/26/23 12:35 Neurological:: awake Speech:: nods head and appropriate (Sometimes) Answers questions:: sometimes Respiratory:: lungs clear Cardiovascular: RRR Abdomen: soft and nontender Decubitus:: none Tracheostomy:: to ventilator Feeding per:: G tube Complaints:: none ASSESSMENT & PLAN Assessment: Patient with cognitive function deficits. ventilator dependent. No distress. Stable condition. Diagnosis and treatment reviewed. Pt does not tolerate weaning from Ventilator. Family updated in IDT. Pt.'s father is very supportive. Transient increase in leak around gastrostomy site with coffee-ground liquid positive for occult blood. Symptomatic ineffective hence patient transferred to ER 09/15/2023 for evaluation and management. Displacement of G-tube into the pyloric bulb seemed to be causing outflow obstruction which on repositioning and semi-deflating the tube balloon did resolve and pt received back later that night in a stable condition with G I consult. now back to baseline stable status.Pt on mittens b/l for pulling on life sustaining tubings. Pt's father involved in pt care and kept informed. No new issues Plan: Current treatment reviewed and continued
[2023-12-27] VITALS (12 sets, daily range): BP systolic 94–117; BP diastolic 60–75; PULSE 49–91; RESP 22–29; TEMP 36.1–36.9; O2SAT 98–100
[2023-12-27] MEDS: IPRATROPIUM/ALBUTEROL 3 ML AMPUL.NEB INH ×4 (00:10→18:15)
[2023-12-27] MEDS: LACTULOSE 10 GM/15 ML SOLUTION GT ×3 (05:09→22:05)
[2023-12-27] MEDS: LEVOTHYROXINE 50 MCG TABLET GT (05:09)
[2023-12-27 08:17] LABS: Basophils % (Auto) 0 % (0-2.5); Eosinophils # (Auto) 0.3 Thou/mm3 (0.0-0.5); Eosinophils % (Auto) 2 % (0-10); Hemoglobin 13.2 g/dL (13.5-16.0); Immature Granulocytes % (Auto) 0 % (0-0); Immature Granulocytes Auto 0.05 Thou/mm3 (0.00-0.00); Lymphocytes # (Auto) 2.4 Thou/mm3 (1.0-4.8); Lymphocytes % (Auto) 19 % (10-50); Mean Corpuscular HGB Conc 32.2 g/dl (31.0-37.0); Mean Corpuscular Hemoglobin 30.8 pg (25.0-35.0); Mean Corpuscular Volume 96 fL (80-100); Monocytes # (Auto) 1.2 Thou/mm3 (0.0-0.8); Monocytes % (Auto) 9 % (0-12); Neutrophils # (Auto) 8.8 Thou/mm3 (1.8-7.7); Neutrophils % (Auto) 69 % (37-80); Nucleated Red Blood Cell % 0 /100 WBC (0); Platelet Count 185 Thou/mm3 (140-440); RDW Standard Deviation 45.3 fL (35.1-43.9); Red Blood Count 4.29 Miln/mm3 (4.50-5.90); White Blood Count 12.9 Thou/mm3 (3.8-10.6)
[2023-12-27 08:27] LABS: Alanine Aminotransferase 58 U/L (10-49); Albumin, Serum 3.7 gm/dL (3.4-4.8); Albumin/Globulin Ratio 1.4 (1.2-2.2); Alkaline Phosphatase 129 U/L (46-116); Anion Gap 5 (7-16); Aspartate Amino Transferase 29 U/L (0-34); BUN/Creatinine Ratio 26 Ratio (12-20); Bilirubin,Total 0.4 mg/dL (0.3-1.2); Blood Urea Nitrogen 26 mg/dL (9-23); Calcium (Corrected) 9.2 mg/dL (8.5-10.1); Chloride 103 mMol/L (98-107); Estimated Creatinine Clearance 79.1 mL/min (>60); Globulin 2.7 gm/dL (2.3-3.5); Glucose 85 mg/dL (74-106); Osmolality,Calculated 277 (275-295); Potassium 3.6 mMol/L (3.4-5.1); Sodium 137 mMol/L (136-145); Total Protein 6.4 gm/dL (5.7-8.2); eGFR > 60 See Note
[2023-12-27] MEDS: acetaZOLAMIDE 250 MG TABLET GT ×2 (09:43→20:52)
[2023-12-27] MEDS: BUMETANIDE 1 MG TABLET GT ×2 (09:43→20:53)
[2023-12-27] MEDS: MULTIVITAMIN 1 TAB TABLET GT (09:44)
[2023-12-27] MEDS: FAMOTIDINE 20 MG TABLET GT (09:44)
[2023-12-27] MEDS: levETIRAcetam 750 MG TABLET GT ×2 (09:44→20:54)
[2023-12-27] MEDS: FERROUS SULFATE 220 MG/5 ML ELIXIR 330 MG GT (09:44)
[2023-12-27] MEDS: POTASSIUM CHLORIDE 20 MEQ TAB.ER.PRT GT ×2 (09:44→20:54)
[2023-12-27] MEDS: VALPROIC ACID 250 MG/5 ML 1000 MG GT (09:46)
[2023-12-28] VITALS (12 sets, daily range): BP systolic 97–125; BP diastolic 63–83; PULSE 75–93; RESP 20–29; TEMP 36.1–36.4; O2SAT 93–100
[2023-12-28] MEDS: IPRATROPIUM/ALBUTEROL 3 ML AMPUL.NEB INH ×4 (01:13→18:35)
[2023-12-28] MEDS: LEVOTHYROXINE 50 MCG TABLET GT (05:35)
[2023-12-28] MEDS: LACTULOSE 10 GM/15 ML SOLUTION GT ×2 (05:35→14:40)
[2023-12-28] MEDS: acetaZOLAMIDE 250 MG TABLET GT ×2 (08:34→20:20)
[2023-12-28] MEDS: BUMETANIDE 1 MG TABLET GT ×2 (08:34→20:20)
[2023-12-28] MEDS: FERROUS SULFATE 220 MG/5 ML ELIXIR 330 MG GT (08:35)
[2023-12-28] MEDS: MULTIVITAMIN 1 TAB TABLET GT (08:35)
[2023-12-28] MEDS: levETIRAcetam 750 MG TABLET GT ×2 (08:35→20:20)
[2023-12-28] MEDS: POTASSIUM CHLORIDE 20 MEQ TAB.ER.PRT GT ×2 (08:35→20:21)
[2023-12-28] MEDS: CARVEDILOL 3.125 MG TABLET GT (08:35)
[2023-12-28] MEDS: FAMOTIDINE 20 MG TABLET GT (08:35)
[2023-12-28] MEDS: VALPROIC ACID 250 MG/5 ML 1000 MG GT (08:35)
[2023-12-28] MEDS: LOSARTAN 25 MG TABLET GT (20:20)
[2023-12-29] VITALS (10 sets, daily range): BP systolic 93–108; BP diastolic 50–69; PULSE 57–101; RESP 21–26; TEMP 36.1–36.7; O2SAT 98–99
[2023-12-29] MEDS: IPRATROPIUM/ALBUTEROL 3 ML AMPUL.NEB INH ×4 (01:20→18:30)
[2023-12-29] MEDS: LEVOTHYROXINE 50 MCG TABLET GT (05:30)
[2023-12-29] MEDS: LACTULOSE 10 GM/15 ML SOLUTION GT ×3 (05:30→21:17)
[2023-12-29] MEDS: acetaZOLAMIDE 250 MG TABLET GT ×2 (08:53→21:21)
[2023-12-29] MEDS: BUMETANIDE 1 MG TABLET GT ×2 (08:53→21:21)
[2023-12-29] MEDS: MULTIVITAMIN 1 TAB TABLET GT (08:55)
[2023-12-29] MEDS: VALPROIC ACID 250 MG/5 ML 1000 MG GT (08:55)
[2023-12-29] MEDS: FAMOTIDINE 20 MG TABLET GT (08:55)
[2023-12-29] MEDS: levETIRAcetam 750 MG TABLET GT ×2 (08:55→21:22)
[2023-12-29] MEDS: POTASSIUM CHLORIDE 20 MEQ TAB.ER.PRT GT ×2 (08:55→21:22)
[2023-12-29] MEDS: FERROUS SULFATE 220 MG/5 ML ELIXIR 330 MG GT (08:55)
--- NOTE | 2023-12-29 13:52 | PC.SS ---
Room visit: Resident remains conserved by his father Jeremi and continues to be a [facility] client. Resident is laying in bed with head of the bed elevated with call light properly placed with no signs of distress. Resident is well groomed not showing any changes in mood and behavior. Resident remains on vent with trach in place and GT for medications. Resident will remain in current care and will continue to have all subacute care needs met by staff.
[2023-12-30] VITALS (11 sets, daily range): BP systolic 100–124; BP diastolic 63–75; PULSE 79–98; RESP 20–35; TEMP 36.4–36.8; O2SAT 98–99
[2023-12-30] MEDS: IPRATROPIUM/ALBUTEROL 3 ML AMPUL.NEB INH ×4 (00:10→18:30)
[2023-12-30] MEDS: LEVOTHYROXINE 50 MCG TABLET GT (05:06)
[2023-12-30] MEDS: LACTULOSE 10 GM/15 ML SOLUTION GT ×3 (05:06→21:35)
[2023-12-30] MEDS: acetaZOLAMIDE 250 MG TABLET GT ×2 (09:17→20:21)
[2023-12-30] MEDS: BUMETANIDE 1 MG TABLET GT ×2 (09:17→20:21)
[2023-12-30] MEDS: POTASSIUM CHLORIDE 20 MEQ TAB.ER.PRT GT ×2 (09:18→20:23)
[2023-12-30] MEDS: MULTIVITAMIN 1 TAB TABLET GT (09:18)
[2023-12-30] MEDS: FAMOTIDINE 20 MG TABLET GT (09:18)
[2023-12-30] MEDS: levETIRAcetam 750 MG TABLET GT ×2 (09:18→20:22)
[2023-12-30] MEDS: FERROUS SULFATE 220 MG/5 ML ELIXIR 330 MG GT (09:18)
[2023-12-30] MEDS: VALPROIC ACID 250 MG/5 ML 1000 MG GT (09:20)
[2023-12-30] MEDS: LOSARTAN 25 MG TABLET GT (20:22)
--- NOTE | 2023-12-30 20:30 | PD.SAPROG ---
Progress Note - SubAcute DIAGNOSIS (1) Chronic respiratory failure with hypoxia: Status: Chronic (2) Dependent on ventilator: Status: Chronic (3) Congestive cardiac failure: Status: Chronic (4) Epilepsy, unspecified, intractable, without status epilepticus: Status: Chronic (5) Anemia: Status: Chronic (6) Hypothyroidism, unspecified: Status: Chronic (7) Developmental disorder of scholastic skills, unspecified: Status: Chronic (8) Age-related osteoporosis without current pathological fracture: Status: Chronic (9) Gastrostomy status: Status: Chronic (10) Tracheostomy status: Status: Chronic SUBJECTIVE Fever:: unchanged (low grade) GI:: none Shortness of Breath:: none GI:: no complaints Pain:: none OBJECTIVE Most recent vital signs: Last Vital Signs Temp 98.3 F 01/02/24 11:38 Pulse 85 01/02/24 11:38 Resp 32 H 01/02/24 11:38 BP 102/59 L 01/02/24 11:38 Pulse Ox 99 01/02/24 07:10 O2 Del Method Mechanical Ventilation 01/02/24 05:46 FiO2 30 01/02/24 07:10 Neurological:: awake Speech:: nods head and appropriate (Sometimes) Answers questions:: sometimes Respiratory:: lungs clear Cardiovascular: RRR Abdomen: soft and nontender Decubitus:: none Tracheostomy:: to ventilator Feeding per:: G tube Complaints:: none ASSESSMENT & PLAN Assessment: Patient with cognitive function deficits. ventilator dependent. No distress. Stable condition. Diagnosis and treatment reviewed. Pt does not tolerate weaning from Ventilator. Family updated in IDT. Pt.'s father is very supportive. Transient increase in leak around gastrostomy site with coffee-ground liquid positive for occult blood. Symptomatic ineffective hence patient transferred to ER 09/15/2023 for evaluation and management. Displacement of G-tube into the pyloric bulb seemed to be causing outflow obstruction which on repositioning and semi-deflating the tube balloon did resolve and pt received back later that night in a stable condition with G I consult. now back to baseline stable status.Pt on mittens b/l for pulling on life sustaining tubings. Pt's father involved in pt care and kept informed. No new issues Plan: Current treatment reviewed and continued
[2023-12-31] VITALS (8 sets, daily range): BP systolic 105–136; BP diastolic 67–72; PULSE 54–88; RESP 18–27; TEMP 36.3–36.7; O2SAT 97–99
[2023-12-31] MEDS: IPRATROPIUM/ALBUTEROL 3 ML AMPUL.NEB INH ×4 (00:20→18:40)
[2023-12-31] MEDS: LACTULOSE 10 GM/15 ML SOLUTION GT ×3 (05:18→21:32)
[2023-12-31] MEDS: LEVOTHYROXINE 50 MCG TABLET GT (05:18)
[2023-12-31 07:12] LABS: Levetiracetam (Keppra)* 30.5 mcg/mL (6.0-46.0)
[2023-12-31] MEDS: acetaZOLAMIDE 250 MG TABLET GT ×2 (08:52→20:30)
[2023-12-31] MEDS: BUMETANIDE 1 MG TABLET GT ×2 (08:53→20:30)
[2023-12-31] MEDS: FAMOTIDINE 20 MG TABLET GT (08:54)
[2023-12-31] MEDS: POTASSIUM CHLORIDE 20 MEQ TAB.ER.PRT GT ×2 (08:54→20:31)
[2023-12-31] MEDS: FERROUS SULFATE 220 MG/5 ML ELIXIR 330 MG GT (08:54)
[2023-12-31] MEDS: levETIRAcetam 750 MG TABLET GT ×2 (08:54→20:30)
[2023-12-31] MEDS: MULTIVITAMIN 1 TAB TABLET GT (08:54)
[2023-12-31] MEDS: VALPROIC ACID 250 MG/5 ML 1000 MG GT (08:54)
[2023-12-31] MEDS: ACETAMINOPHEN 325 MG TABLET 650 MG GT (08:58)
[2024-01-01] VITALS (12 sets, daily range): BP systolic 105–123; BP diastolic 64–87; PULSE 72–101; RESP 20–31; TEMP 36.2–36.7; O2SAT 98–100
[2024-01-01] MEDS: IPRATROPIUM/ALBUTEROL 3 ML AMPUL.NEB INH ×4 (00:20→19:29)
[2024-01-01] MEDS: LACTULOSE 10 GM/15 ML SOLUTION GT ×3 (05:41→21:12)
[2024-01-01] MEDS: LEVOTHYROXINE 50 MCG TABLET GT (05:41)
[2024-01-01] MEDS: acetaZOLAMIDE 250 MG TABLET GT ×2 (09:12→20:36)
[2024-01-01] MEDS: BUMETANIDE 1 MG TABLET GT ×2 (09:13→20:42)
[2024-01-01] MEDS: MULTIVITAMIN 1 TAB TABLET GT (09:14)
[2024-01-01] MEDS: FAMOTIDINE 20 MG TABLET GT (09:14)
[2024-01-01] MEDS: levETIRAcetam 750 MG TABLET GT ×2 (09:14→20:43)
[2024-01-01] MEDS: POTASSIUM CHLORIDE 20 MEQ TAB.ER.PRT GT ×2 (09:14→20:43)
[2024-01-01] MEDS: FERROUS SULFATE 220 MG/5 ML ELIXIR 330 MG GT (09:14)
[2024-01-01] MEDS: VALPROIC ACID 250 MG/5 ML 1000 MG GT (09:15)
[2024-01-01] MEDS: ACETAMINOPHEN 325 MG TABLET 650 MG GT (09:16)
[2024-01-01] MEDS: guaiFENesin Liq 100 MG/5 ML LIQUID GT (09:16)
[2024-01-01] MEDS: LOSARTAN 25 MG TABLET GT (20:43)
[2024-01-02] VITALS (12 sets, daily range): BP systolic 96–120; BP diastolic 59–70; PULSE 63–98; RESP 16–32; TEMP 36.2–36.8; O2SAT 95–100
[2024-01-02] MEDS: IPRATROPIUM/ALBUTEROL 3 ML AMPUL.NEB INH ×4 (01:08→19:20)
[2024-01-02] MEDS: acetaZOLAMIDE 250 MG TABLET GT ×2 (08:35→20:14)
[2024-01-02] MEDS: BUMETANIDE 1 MG TABLET GT ×2 (08:36→20:15)
[2024-01-02] MEDS: FAMOTIDINE 20 MG TABLET GT (08:37)
[2024-01-02] MEDS: levETIRAcetam 750 MG TABLET GT ×2 (08:37→20:15)
[2024-01-02] MEDS: POTASSIUM CHLORIDE 20 MEQ TAB.ER.PRT GT ×2 (08:37→20:15)
[2024-01-02] MEDS: MULTIVITAMIN 1 TAB TABLET GT (08:37)
[2024-01-02] MEDS: VALPROIC ACID 250 MG/5 ML 1000 MG GT (08:37)
[2024-01-02] MEDS: FERROUS SULFATE 220 MG/5 ML ELIXIR 330 MG GT (08:37)
[2024-01-02] MEDS: CARVEDILOL 3.125 MG TABLET GT (08:37)
[2024-01-02] MEDS: LACTULOSE 10 GM/15 ML SOLUTION GT ×2 (14:46→21:14)
[2024-01-02] MEDS: ACETAMINOPHEN 325 MG TABLET 650 MG GT (21:10)
[2024-01-03] VITALS (9 sets, daily range): BP systolic 90–118; BP diastolic 60–70; PULSE 57–91; RESP 16–22; TEMP 36.3–36.6; O2SAT 94–99
[2024-01-03] MEDS: IPRATROPIUM/ALBUTEROL 3 ML AMPUL.NEB INH ×4 (01:18→19:11)
[2024-01-03] MEDS: LEVOTHYROXINE 50 MCG TABLET GT (05:21)
[2024-01-03] MEDS: LACTULOSE 10 GM/15 ML SOLUTION GT ×2 (05:21→22:10)
[2024-01-03] MEDS: acetaZOLAMIDE 250 MG TABLET GT ×2 (08:40→20:13)
[2024-01-03] MEDS: BUMETANIDE 1 MG TABLET GT ×2 (08:42→20:14)
[2024-01-03] MEDS: FERROUS SULFATE 220 MG/5 ML ELIXIR 330 MG GT (08:42)
[2024-01-03] MEDS: FAMOTIDINE 20 MG TABLET GT (08:42)
[2024-01-03] MEDS: MULTIVITAMIN 1 TAB TABLET GT (08:43)
[2024-01-03] MEDS: POTASSIUM CHLORIDE 20 MEQ TAB.ER.PRT GT ×2 (08:43→20:15)
[2024-01-03] MEDS: levETIRAcetam 750 MG TABLET GT ×2 (08:43→20:14)
[2024-01-03] MEDS: VALPROIC ACID 250 MG/5 ML 1000 MG GT (08:44)
--- NOTE | 2024-01-03 12:26 | PC.SS ---
Resident had unannounced visit from [facility] counselor Georgi Zamora. Resident was laying in bed with head of the bed elevated with call light properly placed he was well groomed with no signs of distress. No questions or concerns from Georgi.
--- NOTE | 2024-01-03 13:12 | PC.NURSE ---
Complete bed bath provided with all wound care and trach care provided. Bed linens were changed. Resident noted to be agitated and attempting to hit at staff. Emotional support provided. Call light in reach. Will continue with current plan of care.
--- NOTE | 2024-01-03 17:56 | PD.SAPROG ---
Progress Note - SubAcute DIAGNOSIS (1) Chronic respiratory failure with hypoxia: Status: Chronic (2) Dependent on ventilator: Status: Chronic (3) Congestive cardiac failure: Status: Chronic (4) Epilepsy, unspecified, intractable, without status epilepticus: Status: Chronic (5) Anemia: Status: Chronic (6) Hypothyroidism, unspecified: Status: Chronic (7) Developmental disorder of scholastic skills, unspecified: Status: Chronic (8) Age-related osteoporosis without current pathological fracture: Status: Chronic (9) Gastrostomy status: Status: Chronic (10) Tracheostomy status: Status: Chronic SUBJECTIVE Fever:: unchanged (low grade) GI:: none Shortness of Breath:: none GI:: no complaints Pain:: none OBJECTIVE Most recent vital signs: Last Vital Signs Temp 97.3 F 01/03/24 11:57 Pulse 65 01/03/24 12:40 Resp 19 01/03/24 12:40 BP 118/70 01/03/24 11:57 Pulse Ox 98 01/03/24 12:40 O2 Del Method Mechanical Ventilation 01/03/24 05:37 FiO2 38 01/03/24 12:40 Neurological:: awake Speech:: nods head and appropriate (Sometimes) Answers questions:: sometimes Respiratory:: lungs clear Cardiovascular: RRR Abdomen: soft and nontender Decubitus:: none Tracheostomy:: to ventilator Feeding per:: G tube Complaints:: none ASSESSMENT & PLAN Assessment: Patient with cognitive function deficits. ventilator dependent. No distress. Stable condition. Diagnosis and treatment reviewed. Pt does not tolerate weaning from Ventilator. Family updated in IDT. Pt.'s father is very supportive. Transient increase in leak around gastrostomy site with coffee-ground liquid positive for occult blood. Symptomatic ineffective hence patient transferred to ER 09/15/2023 for evaluation and management. Displacement of G-tube into the pyloric bulb seemed to be causing outflow obstruction which on repositioning and semi-deflating the tube balloon did resolve and pt received back later that night in a stable condition with G I consult. now back to baseline stable status.Pt on mittens b/l for pulling on life sustaining tubings. Pt's father involved in pt care and kept informed. No new issues Plan: Current treatment reviewed and continued
[2024-01-04] VITALS (12 sets, daily range): BP systolic 90–118; BP diastolic 60–76; PULSE 60–98; RESP 16–24; TEMP 36.4–36.7; O2SAT 95–99
[2024-01-04] MEDS: IPRATROPIUM/ALBUTEROL 3 ML AMPUL.NEB INH ×4 (00:36→19:55)
[2024-01-04] MEDS: LEVOTHYROXINE 50 MCG TABLET GT (05:17)
[2024-01-04] MEDS: LACTULOSE 10 GM/15 ML SOLUTION GT ×3 (05:17→21:36)
[2024-01-04] MEDS: acetaZOLAMIDE 250 MG TABLET GT ×2 (08:48→20:35)
[2024-01-04] MEDS: BUMETANIDE 1 MG TABLET GT ×2 (08:49→20:35)
[2024-01-04] MEDS: CARVEDILOL 3.125 MG TABLET GT (08:49)
[2024-01-04] MEDS: FAMOTIDINE 20 MG TABLET GT (08:49)
[2024-01-04] MEDS: levETIRAcetam 750 MG TABLET GT ×2 (08:49→20:36)
[2024-01-04] MEDS: FERROUS SULFATE 220 MG/5 ML ELIXIR 330 MG GT (08:49)
[2024-01-04] MEDS: MULTIVITAMIN 1 TAB TABLET GT (08:50)
[2024-01-04] MEDS: POTASSIUM CHLORIDE 20 MEQ TAB.ER.PRT GT ×2 (08:50→20:36)
[2024-01-04] MEDS: VALPROIC ACID 250 MG/5 ML 1000 MG GT (08:50)
[2024-01-05] VITALS (12 sets, daily range): BP systolic 93–117; BP diastolic 60–76; PULSE 61–97; RESP 20–28; TEMP 36.3–36.6; O2SAT 96–100
[2024-01-05] MEDS: IPRATROPIUM/ALBUTEROL 3 ML AMPUL.NEB INH ×4 (00:13→19:15)
[2024-01-05] MEDS: LACTULOSE 10 GM/15 ML SOLUTION GT ×3 (05:25→21:09)
[2024-01-05] MEDS: LEVOTHYROXINE 50 MCG TABLET GT (05:26)
[2024-01-05] MEDS: acetaZOLAMIDE 250 MG TABLET GT ×2 (08:47→21:09)
[2024-01-05] MEDS: BUMETANIDE 1 MG TABLET GT ×2 (08:47→21:09)
[2024-01-05] MEDS: CARVEDILOL 3.125 MG TABLET GT (08:48)
[2024-01-05] MEDS: FAMOTIDINE 20 MG TABLET GT (08:48)
[2024-01-05] MEDS: VALPROIC ACID 250 MG/5 ML 1000 MG GT (08:49)
[2024-01-05] MEDS: MULTIVITAMIN 1 TAB TABLET GT (08:49)
[2024-01-05] MEDS: levETIRAcetam 750 MG TABLET GT ×2 (08:49→21:09)
[2024-01-05] MEDS: POTASSIUM CHLORIDE 20 MEQ TAB.ER.PRT GT ×2 (08:49→21:20)
[2024-01-05] MEDS: FERROUS SULFATE 220 MG/5 ML ELIXIR 330 MG GT (08:49)
[2024-01-06] VITALS (14 sets, daily range): BP systolic 93–155; BP diastolic 53–82; PULSE 67–105; RESP 20–33; TEMP 36.1–37; O2SAT 92–100
[2024-01-06] MEDS: IPRATROPIUM/ALBUTEROL 3 ML AMPUL.NEB INH ×3 (00:30→18:35)
[2024-01-06] MEDS: LEVOTHYROXINE 50 MCG TABLET GT (05:13)
[2024-01-06] MEDS: FERROUS SULFATE 220 MG/5 ML ELIXIR 330 MG GT (09:35)
[2024-01-06] MEDS: FAMOTIDINE 20 MG TABLET GT (09:35)
[2024-01-06] MEDS: CARVEDILOL 3.125 MG TABLET GT (09:35)
[2024-01-06] MEDS: acetaZOLAMIDE 250 MG TABLET GT ×2 (09:35→21:01)
[2024-01-06] MEDS: levETIRAcetam 750 MG TABLET GT ×2 (09:35→21:02)
[2024-01-06] MEDS: BUMETANIDE 1 MG TABLET GT ×2 (09:35→21:01)
[2024-01-06] MEDS: VALPROIC ACID 250 MG/5 ML 1000 MG GT (09:36)
[2024-01-06] MEDS: MULTIVITAMIN 1 TAB TABLET GT (09:36)
[2024-01-06] MEDS: POTASSIUM CHLORIDE 20 MEQ TAB.ER.PRT GT ×2 (09:36→21:02)
[2024-01-06] MEDS: LACTULOSE 10 GM/15 ML SOLUTION GT ×2 (13:23→20:59)
[2024-01-06] MEDS: LORazepam 2 MG/ML VIAL IM (23:35)
--- NOTE | 2024-01-06 23:46 | PC.NURSE ---
At approximately 2300 was called into room by RIDGE who was checking vitals, resident was pale in color, nonresponsive, O2 saturation was 67% on mechanical ventilator. FiO2 was increased to 100%, suctioned with no resistance, O2 saturation increased to 90%, pulled resident up in bed and repositioned, O2 saturation increased to 99%. Sternal rub attempted with no success of resident becomng responsive, staff was at bedside when resident opened his eyes, started having facial tremors and then began having a seizure that lasted for approximately 45 seconds including his upper body and arms (2307). Called Dr Lackey to notify, new order to give Ativan 2mg IM now with a repeat dose as needed. Nurse of resident remained at bedside while Ativan as pulled from E-Kit, when coming back into room, was notified that resident had had another seizure that lasted approximately 26 seconds (2311) with slight facial tremors. Administered Ativan 2mg IM to left deltoid (2313), staff at bedside, Neuro checks initiated, at this time no other seizures noted, vitals are WNL, call light is within reach, staff to sit outside of room to monitor resident.
[2024-01-07] VITALS (15 sets, daily range): BP systolic 81–96; BP diastolic 56–66; PULSE 70–98; RESP 22–34; TEMP 35.9–36.2; O2SAT 95–100
[2024-01-07] MEDS: IPRATROPIUM/ALBUTEROL 3 ML AMPUL.NEB INH ×4 (00:30→18:40)
--- NOTE | 2024-01-07 03:06 | PC.RT ---
SNF Nsg called requesting continous spo2 monitor. Brought SPo2 monitor to pt room and connected.
--- NOTE | 2024-01-07 05:51 | PC.NURSE ---
Addendum entered by Flora Diaz RN 01/07/24 13:19: (late entry for this morning phone call )Residents family has bee notified. regarding resident episodes of seizure. resident remains stable at this time. Original Note: Resident has been asleep the rest of the night, no other seizures noted after receiving Ativan IM, no side effects noted, continues on Neuro checks
[2024-01-07] MEDS: LACTULOSE 10 GM/15 ML SOLUTION GT ×3 (06:13→21:11)
[2024-01-07] MEDS: LEVOTHYROXINE 50 MCG TABLET GT (06:13)
[2024-01-07] MEDS: FAMOTIDINE 20 MG TABLET GT (09:39)
[2024-01-07] MEDS: FERROUS SULFATE 220 MG/5 ML ELIXIR 330 MG GT (09:39)
[2024-01-07] MEDS: acetaZOLAMIDE 250 MG TABLET GT ×2 (09:39→21:16)
[2024-01-07] MEDS: BUMETANIDE 1 MG TABLET GT ×2 (09:39→21:17)
[2024-01-07] MEDS: POTASSIUM CHLORIDE 20 MEQ TAB.ER.PRT GT ×2 (09:40→21:18)
[2024-01-07] MEDS: VALPROIC ACID 250 MG/5 ML 1000 MG GT (09:40)
[2024-01-07] MEDS: MULTIVITAMIN 1 TAB TABLET GT (09:40)
[2024-01-07] MEDS: levETIRAcetam 750 MG TABLET GT ×2 (09:40→21:17)
--- NOTE | 2024-01-07 12:30 | PD.SAPROG ---
Progress Note - SubAcute DIAGNOSIS (1) Chronic respiratory failure with hypoxia: Status: Chronic (2) Dependent on ventilator: Status: Chronic (3) Congestive cardiac failure: Status: Chronic (4) Epilepsy, unspecified, intractable, without status epilepticus: Status: Chronic (5) Anemia: Status: Chronic (6) Hypothyroidism, unspecified: Status: Chronic (7) Developmental disorder of scholastic skills, unspecified: Status: Chronic (8) Age-related osteoporosis without current pathological fracture: Status: Chronic (9) Gastrostomy status: Status: Chronic (10) Tracheostomy status: Status: Chronic SUBJECTIVE Fever:: unchanged (low grade) GI:: none Shortness of Breath:: none GI:: no complaints Pain:: none OBJECTIVE Most recent vital signs: Last Vital Signs Temp 98.6 F 01/08/24 17:33 Pulse 76 01/08/24 20:44 Resp 20 01/08/24 18:25 BP 90/61 01/08/24 20:44 Pulse Ox 100 01/08/24 18:25 O2 Del Method Mechanical Ventilation 01/08/24 17:33 FiO2 42 01/08/24 18:25 Neurological:: awake Speech:: nods head and appropriate (Sometimes) Answers questions:: sometimes Respiratory:: lungs clear Cardiovascular: RRR Abdomen: soft and nontender Decubitus:: none Tracheostomy:: to ventilator Feeding per:: G tube Complaints:: none ASSESSMENT & PLAN Assessment: Patient with cognitive function deficits. ventilator dependent. No distress. Stable condition. Diagnosis and treatment reviewed. Pt does not tolerate weaning from Ventilator. Family updated in IDT. Pt.'s father is very supportive. Transient increase in leak around gastrostomy site with coffee-ground liquid positive for occult blood. Symptomatic ineffective hence patient transferred to ER 09/15/2023 for evaluation and management. Displacement of G-tube into the pyloric bulb seemed to be causing outflow obstruction which on repositioning and semi-deflating the tube balloon did resolve and pt received back later that night in a stable condition with G I consult. now back to baseline stable status.Pt on mittens b/l for pulling on life sustaining tubings. Pt's father involved in pt care and kept informed. No new issues Plan: Current treatment reviewed and continued
[2024-01-08] VITALS (11 sets, daily range): BP systolic 90–107; BP diastolic 61–71; PULSE 62–95; RESP 20–27; TEMP 35.7–37; O2SAT 93–100
[2024-01-08] MEDS: IPRATROPIUM/ALBUTEROL 3 ML AMPUL.NEB INH ×4 (00:25→18:25)
[2024-01-08] MEDS: LACTULOSE 10 GM/15 ML SOLUTION GT ×3 (05:11→21:55)
[2024-01-08] MEDS: LEVOTHYROXINE 50 MCG TABLET GT (05:12)
[2024-01-08] MEDS: acetaZOLAMIDE 250 MG TABLET GT ×2 (08:53→20:44)
[2024-01-08] MEDS: BUMETANIDE 1 MG TABLET GT ×2 (08:54→20:44)
[2024-01-08] MEDS: FERROUS SULFATE 220 MG/5 ML ELIXIR 330 MG GT (08:54)
[2024-01-08] MEDS: FAMOTIDINE 20 MG TABLET GT (08:54)
[2024-01-08] MEDS: levETIRAcetam 750 MG TABLET GT ×2 (08:55→20:44)
[2024-01-08] MEDS: POTASSIUM CHLORIDE 20 MEQ TAB.ER.PRT GT ×2 (08:56→20:45)
[2024-01-08] MEDS: VALPROIC ACID 250 MG/5 ML 1000 MG GT (08:56)
[2024-01-08] MEDS: MULTIVITAMIN 1 TAB TABLET GT (08:56)
[2024-01-08] MEDS: ACETAMINOPHEN 325 MG TABLET 650 MG GT (16:10)
[2024-01-09] VITALS (13 sets, daily range): BP systolic 95–114; BP diastolic 62–66; PULSE 70–97; RESP 20–26; TEMP 36.2–36.5; O2SAT 95–100
[2024-01-09] MEDS: IPRATROPIUM/ALBUTEROL 3 ML AMPUL.NEB INH ×4 (00:55→18:30)
[2024-01-09] MEDS: LEVOTHYROXINE 50 MCG TABLET GT (05:25)
[2024-01-09] MEDS: LACTULOSE 10 GM/15 ML SOLUTION GT ×3 (05:25→21:56)
[2024-01-09] MEDS: acetaZOLAMIDE 250 MG TABLET GT ×2 (08:43→20:24)
[2024-01-09] MEDS: FAMOTIDINE 20 MG TABLET GT (08:45)
[2024-01-09] MEDS: BUMETANIDE 1 MG TABLET GT ×2 (08:45→20:24)
[2024-01-09] MEDS: FERROUS SULFATE 220 MG/5 ML ELIXIR 330 MG GT (08:45)
[2024-01-09] MEDS: MULTIVITAMIN 1 TAB TABLET GT (08:46)
[2024-01-09] MEDS: VALPROIC ACID 250 MG/5 ML 1000 MG GT (08:46)
[2024-01-09] MEDS: POTASSIUM CHLORIDE 20 MEQ TAB.ER.PRT GT ×2 (08:46→20:25)
[2024-01-09] MEDS: levETIRAcetam 750 MG TABLET GT ×2 (08:46→20:25)
[2024-01-09] MEDS: LOSARTAN 25 MG TABLET GT (20:25)
[2024-01-10] VITALS (11 sets, daily range): BP systolic 96–114; BP diastolic 54–70; PULSE 73–96; RESP 20–27; TEMP 36.2–36.3; O2SAT 98–100
[2024-01-10] MEDS: IPRATROPIUM/ALBUTEROL 3 ML AMPUL.NEB INH ×4 (00:10→16:57)
[2024-01-10] MEDS: LACTULOSE 10 GM/15 ML SOLUTION GT ×2 (05:19→21:36)
[2024-01-10] MEDS: LEVOTHYROXINE 50 MCG TABLET GT (05:19)
[2024-01-10] MEDS: BUMETANIDE 1 MG TABLET GT ×2 (08:26→20:25)
[2024-01-10] MEDS: acetaZOLAMIDE 250 MG TABLET GT ×2 (08:26→20:24)
[2024-01-10] MEDS: FAMOTIDINE 20 MG TABLET GT (08:27)
[2024-01-10] MEDS: POTASSIUM CHLORIDE 20 MEQ TAB.ER.PRT GT ×2 (08:28→20:26)
[2024-01-10] MEDS: FERROUS SULFATE 220 MG/5 ML ELIXIR 330 MG GT (08:28)
[2024-01-10] MEDS: MULTIVITAMIN 1 TAB TABLET GT (08:28)
[2024-01-10] MEDS: levETIRAcetam 750 MG TABLET GT ×2 (08:28→20:26)
[2024-01-10] MEDS: VALPROIC ACID 250 MG/5 ML 1000 MG GT (08:29)
--- NOTE | 2024-01-10 11:52 | PC.NURSE ---
Resident received shower today. All treatments done including trach care.
[2024-01-11] VITALS (10 sets, daily range): BP systolic 96–118; BP diastolic 62–70; PULSE 64–102; RESP 20–25; TEMP 36–36.1; O2SAT 97–100
[2024-01-11] MEDS: IPRATROPIUM/ALBUTEROL 3 ML AMPUL.NEB INH ×4 (00:18→18:55)
[2024-01-11] MEDS: LEVOTHYROXINE 50 MCG TABLET GT (05:12)
[2024-01-11] MEDS: LACTULOSE 10 GM/15 ML SOLUTION GT ×3 (05:12→21:53)
[2024-01-11] MEDS: acetaZOLAMIDE 250 MG TABLET GT ×2 (08:40→20:35)
[2024-01-11] MEDS: BUMETANIDE 1 MG TABLET GT ×2 (08:40→20:35)
[2024-01-11] MEDS: FAMOTIDINE 20 MG TABLET GT (08:41)
[2024-01-11] MEDS: FERROUS SULFATE 220 MG/5 ML ELIXIR 330 MG GT (08:42)
[2024-01-11] MEDS: levETIRAcetam 750 MG TABLET GT ×2 (08:42→20:36)
[2024-01-11] MEDS: MULTIVITAMIN 1 TAB TABLET GT (08:43)
[2024-01-11] MEDS: VALPROIC ACID 250 MG/5 ML 1000 MG GT (08:43)
[2024-01-11] MEDS: POTASSIUM CHLORIDE 20 MEQ TAB.ER.PRT GT ×2 (08:43→20:37)
--- NOTE | 2024-01-11 12:25 | PD.SAPROG ---
Progress Note - SubAcute DIAGNOSIS (1) Chronic respiratory failure with hypoxia: Status: Chronic (2) Dependent on ventilator: Status: Chronic (3) Congestive cardiac failure: Status: Chronic (4) Epilepsy, unspecified, intractable, without status epilepticus: Status: Chronic (5) Anemia: Status: Chronic (6) Hypothyroidism, unspecified: Status: Chronic (7) Developmental disorder of scholastic skills, unspecified: Status: Chronic (8) Age-related osteoporosis without current pathological fracture: Status: Chronic (9) Gastrostomy status: Status: Chronic (10) Tracheostomy status: Status: Chronic SUBJECTIVE Fever:: unchanged (low grade) GI:: none Shortness of Breath:: none GI:: no complaints Pain:: none OBJECTIVE Most recent vital signs: Last Vital Signs Temp 97.4 F 01/15/24 17:26 Pulse 84 01/15/24 20:28 Resp 22 H 01/15/24 18:45 BP 108/69 01/15/24 20:28 Pulse Ox 100 01/15/24 18:45 O2 Del Method Mechanical Ventilation 01/15/24 17:26 FiO2 43 01/15/24 18:45 Neurological:: awake Speech:: nods head and appropriate (Sometimes) Answers questions:: sometimes Respiratory:: lungs clear Cardiovascular: RRR Abdomen: soft and nontender Decubitus:: none Tracheostomy:: to ventilator Feeding per:: G tube Complaints:: none ASSESSMENT & PLAN Assessment: Patient with cognitive function deficits. ventilator dependent. No distress. Stable condition. Diagnosis and treatment reviewed. Pt does not tolerate weaning from Ventilator. Family updated in IDT. Pt.'s father is very supportive. Transient increase in leak around gastrostomy site with coffee-ground liquid positive for occult blood. Symptomatic ineffective hence patient transferred to ER 09/15/2023 for evaluation and management. Displacement of G-tube into the pyloric bulb seemed to be causing outflow obstruction which on repositioning and semi-deflating the tube balloon did resolve and pt received back later that night in a stable condition with G I consult. now back to baseline stable status.Pt on mittens b/l for pulling on life sustaining tubings. Pt's father involved in pt care and kept informed. No new issues Plan: Current treatment reviewed and continued
[2024-01-12] VITALS (10 sets, daily range): BP systolic 99–128; BP diastolic 68–84; PULSE 71–99; RESP 20–28; TEMP 36–36.4; O2SAT 99–100
[2024-01-12] MEDS: IPRATROPIUM/ALBUTEROL 3 ML AMPUL.NEB INH ×4 (00:53→19:32)
[2024-01-12] MEDS: LEVOTHYROXINE 50 MCG TABLET GT (06:02)
[2024-01-12] MEDS: LACTULOSE 10 GM/15 ML SOLUTION GT ×3 (06:02→21:01)
[2024-01-12] MEDS: acetaZOLAMIDE 250 MG TABLET GT ×2 (08:40→20:51)
[2024-01-12] MEDS: levETIRAcetam 750 MG TABLET GT ×2 (08:41→20:53)
[2024-01-12] MEDS: MULTIVITAMIN 1 TAB TABLET GT (08:41)
[2024-01-12] MEDS: FAMOTIDINE 20 MG TABLET GT (08:41)
[2024-01-12] MEDS: BUMETANIDE 1 MG TABLET GT ×2 (08:41→20:53)
[2024-01-12] MEDS: FERROUS SULFATE 220 MG/5 ML ELIXIR 330 MG GT (08:41)
[2024-01-12] MEDS: POTASSIUM CHLORIDE 20 MEQ TAB.ER.PRT GT ×2 (08:42→20:53)
[2024-01-12] MEDS: VALPROIC ACID 250 MG/5 ML 1000 MG GT (08:42)
[2024-01-13] VITALS (11 sets, daily range): BP systolic 97–125; BP diastolic 65–79; PULSE 70–104; RESP 20–26; TEMP 36.1–36.7; O2SAT 96–100
[2024-01-13] MEDS: IPRATROPIUM/ALBUTEROL 3 ML AMPUL.NEB INH ×4 (01:46→17:37)
[2024-01-13] MEDS: LEVOTHYROXINE 50 MCG TABLET GT (05:14)
[2024-01-13] MEDS: LACTULOSE 10 GM/15 ML SOLUTION GT ×3 (05:14→21:43)
[2024-01-13] MEDS: FAMOTIDINE 20 MG TABLET GT (08:41)
[2024-01-13] MEDS: BUMETANIDE 1 MG TABLET GT ×2 (08:43→20:31)
[2024-01-13] MEDS: acetaZOLAMIDE 250 MG TABLET GT ×2 (08:43→20:31)
[2024-01-13] MEDS: FERROUS SULFATE 220 MG/5 ML ELIXIR 330 MG GT (08:44)
[2024-01-13] MEDS: VALPROIC ACID 250 MG/5 ML 1000 MG GT (08:44)
[2024-01-13] MEDS: POTASSIUM CHLORIDE 20 MEQ TAB.ER.PRT GT ×2 (08:44→20:36)
[2024-01-13] MEDS: MULTIVITAMIN 1 TAB TABLET GT (08:44)
[2024-01-13] MEDS: levETIRAcetam 750 MG TABLET GT ×2 (08:44→20:36)
[2024-01-13] MEDS: LOSARTAN 25 MG TABLET GT (20:36)
[2024-01-14] VITALS (12 sets, daily range): BP systolic 90–115; BP diastolic 59–73; PULSE 61–97; RESP 20–27; TEMP 36.2–36.9; O2SAT 97–100
[2024-01-14] MEDS: LACTULOSE 10 GM/15 ML SOLUTION GT ×2 (05:43→14:54)
[2024-01-14] MEDS: LEVOTHYROXINE 50 MCG TABLET GT (05:43)
[2024-01-14] MEDS: IPRATROPIUM/ALBUTEROL 3 ML AMPUL.NEB INH ×3 (06:30→19:04)
[2024-01-14] MEDS: BUMETANIDE 1 MG TABLET GT ×2 (08:58→20:52)
[2024-01-14] MEDS: acetaZOLAMIDE 250 MG TABLET GT ×2 (08:58→20:52)
[2024-01-14] MEDS: VALPROIC ACID 250 MG/5 ML 1000 MG GT (08:59)
[2024-01-14] MEDS: POTASSIUM CHLORIDE 20 MEQ TAB.ER.PRT GT ×2 (08:59→20:53)
[2024-01-14] MEDS: FAMOTIDINE 20 MG TABLET GT (08:59)
[2024-01-14] MEDS: MULTIVITAMIN 1 TAB TABLET GT (08:59)
[2024-01-14] MEDS: FERROUS SULFATE 220 MG/5 ML ELIXIR 330 MG GT (08:59)
[2024-01-14] MEDS: levETIRAcetam 750 MG TABLET GT ×2 (08:59→20:53)
[2024-01-14] MEDS: ACETAMINOPHEN 325 MG TABLET 650 MG GT (09:03)
[2024-01-14] MEDS: guaiFENesin Liq 100 MG/5 ML LIQUID GT (09:03)
[2024-01-15] VITALS (11 sets, daily range): BP systolic 90–108; BP diastolic 60–71; PULSE 68–98; RESP 21–29; TEMP 36.1–36.8; O2SAT 98–100
[2024-01-15] MEDS: IPRATROPIUM/ALBUTEROL 3 ML AMPUL.NEB INH ×4 (00:52→18:45)
[2024-01-15] MEDS: LACTULOSE 10 GM/15 ML SOLUTION GT ×3 (05:29→21:18)
[2024-01-15] MEDS: LEVOTHYROXINE 50 MCG TABLET GT (05:29)
[2024-01-15] MEDS: BUMETANIDE 1 MG TABLET GT ×2 (09:09→20:26)
[2024-01-15] MEDS: acetaZOLAMIDE 250 MG TABLET GT ×2 (09:09→20:26)
[2024-01-15] MEDS: ACETAMINOPHEN 325 MG TABLET 650 MG GT (09:10)
[2024-01-15] MEDS: POTASSIUM CHLORIDE 20 MEQ TAB.ER.PRT GT ×2 (09:10→20:29)
[2024-01-15] MEDS: FAMOTIDINE 20 MG TABLET GT (09:10)
[2024-01-15] MEDS: MULTIVITAMIN 1 TAB TABLET GT (09:10)
[2024-01-15] MEDS: VALPROIC ACID 250 MG/5 ML 1000 MG GT (09:10)
[2024-01-15] MEDS: FERROUS SULFATE 220 MG/5 ML ELIXIR 330 MG GT (09:10)
[2024-01-15] MEDS: levETIRAcetam 750 MG TABLET GT ×2 (09:10→20:28)
[2024-01-15] MEDS: CARBAMIDE PEROXIDE OTIC SOL 15 ML BTL 5 DROP BOTH EARS (20:28)
[2024-01-16] VITALS (10 sets, daily range): BP systolic 100–126; BP diastolic 59–82; PULSE 70–90; RESP 22–27; TEMP 36.2–37.1; O2SAT 97–100
[2024-01-16] MEDS: IPRATROPIUM/ALBUTEROL 3 ML AMPUL.NEB INH ×4 (00:10→19:15)
[2024-01-16] MEDS: LACTULOSE 10 GM/15 ML SOLUTION GT ×2 (05:44→21:40)
[2024-01-16] MEDS: LEVOTHYROXINE 50 MCG TABLET GT (05:45)
[2024-01-16] MEDS: acetaZOLAMIDE 250 MG TABLET GT ×2 (09:08→20:30)
[2024-01-16] MEDS: BUMETANIDE 1 MG TABLET GT ×2 (09:09→20:31)
[2024-01-16] MEDS: CARBAMIDE PEROXIDE OTIC SOL 15 ML BTL 5 DROP BOTH EARS ×2 (09:09→20:33)
[2024-01-16] MEDS: MULTIVITAMIN 1 TAB TABLET GT (09:10)
[2024-01-16] MEDS: CARVEDILOL 3.125 MG TABLET GT (09:10)
[2024-01-16] MEDS: POTASSIUM CHLORIDE 20 MEQ TAB.ER.PRT GT ×2 (09:10→20:33)
[2024-01-16] MEDS: levETIRAcetam 750 MG TABLET GT ×2 (09:10→20:33)
[2024-01-16] MEDS: FERROUS SULFATE 220 MG/5 ML ELIXIR 330 MG GT (09:10)
[2024-01-16] MEDS: FAMOTIDINE 20 MG TABLET GT (09:10)
[2024-01-16] MEDS: VALPROIC ACID 250 MG/5 ML 1000 MG GT (09:11)
[2024-01-17] VITALS (11 sets, daily range): BP systolic 92–117; BP diastolic 62–69; PULSE 59–97; RESP 20–25; TEMP 36.3–36.7; O2SAT 97–100
[2024-01-17] MEDS: IPRATROPIUM/ALBUTEROL 3 ML AMPUL.NEB INH ×4 (00:10→18:40)
[2024-01-17] MEDS: LACTULOSE 10 GM/15 ML SOLUTION GT ×3 (05:29→21:02)
[2024-01-17] MEDS: LEVOTHYROXINE 50 MCG TABLET GT (06:31)
[2024-01-17] MEDS: acetaZOLAMIDE 250 MG TABLET GT ×2 (09:17→20:59)
[2024-01-17] MEDS: BUMETANIDE 1 MG TABLET GT ×2 (09:18→21:02)
[2024-01-17] MEDS: CARBAMIDE PEROXIDE OTIC SOL 15 ML BTL 5 DROP BOTH EARS ×2 (09:19→20:59)
[2024-01-17] MEDS: MULTIVITAMIN 1 TAB TABLET GT (09:20)
[2024-01-17] MEDS: POTASSIUM CHLORIDE 20 MEQ TAB.ER.PRT GT ×2 (09:20→20:59)
[2024-01-17] MEDS: FERROUS SULFATE 220 MG/5 ML ELIXIR 330 MG GT (09:20)
[2024-01-17] MEDS: FAMOTIDINE 20 MG TABLET GT (09:20)
[2024-01-17] MEDS: levETIRAcetam 750 MG TABLET GT ×2 (09:20→20:59)
[2024-01-17] MEDS: VALPROIC ACID 250 MG/5 ML 1000 MG GT (09:21)
[2024-01-18] VITALS (8 sets, daily range): BP systolic 96–107; BP diastolic 67–69; PULSE 71–86; RESP 20–23; TEMP 35.9–36.2; O2SAT 98–100; BMI 25.6
[2024-01-18] MEDS: IPRATROPIUM/ALBUTEROL 3 ML AMPUL.NEB INH ×4 (00:25→18:30)
[2024-01-18] MEDS: LACTULOSE 10 GM/15 ML SOLUTION GT ×3 (05:25→21:00)
[2024-01-18] MEDS: LEVOTHYROXINE 50 MCG TABLET GT (05:26)
[2024-01-18] MEDS: CARBAMIDE PEROXIDE OTIC SOL 15 ML BTL 5 DROP BOTH EARS (08:56)
[2024-01-18] MEDS: acetaZOLAMIDE 250 MG TABLET GT ×2 (08:57→20:16)
[2024-01-18] MEDS: BUMETANIDE 1 MG TABLET GT ×2 (08:57→20:17)
[2024-01-18] MEDS: FAMOTIDINE 20 MG TABLET GT (08:59)
[2024-01-18] MEDS: FERROUS SULFATE 220 MG/5 ML ELIXIR 330 MG GT (08:59)
[2024-01-18] MEDS: levETIRAcetam 750 MG TABLET GT ×2 (08:59→20:17)
[2024-01-18] MEDS: VALPROIC ACID 250 MG/5 ML 1000 MG GT (09:00)
[2024-01-18] MEDS: MULTIVITAMIN 1 TAB TABLET GT (09:00)
[2024-01-18] MEDS: POTASSIUM CHLORIDE 20 MEQ TAB.ER.PRT GT ×2 (09:00→20:17)
--- NOTE | 2024-01-18 15:53 | PC.SS ---
Resident received call from [facility] counselor Alex Zamora. Resident is laying in bed well groomed with call light properly placed with no signs of distress. No questions or concerns at this time.
[2024-01-19] VITALS (10 sets, daily range): BP systolic 94–140; BP diastolic 57–78; PULSE 69–89; RESP 20–25; TEMP 36.1–36.8; O2SAT 98–100
[2024-01-19] MEDS: IPRATROPIUM/ALBUTEROL 3 ML AMPUL.NEB INH ×4 (00:10→18:15)
[2024-01-19] MEDS: LACTULOSE 10 GM/15 ML SOLUTION GT ×3 (05:40→21:22)
[2024-01-19] MEDS: LEVOTHYROXINE 50 MCG TABLET GT (05:40)
[2024-01-19] MEDS: acetaZOLAMIDE 250 MG TABLET GT ×2 (09:27→20:02)
[2024-01-19] MEDS: CARVEDILOL 3.125 MG TABLET GT (09:27)
[2024-01-19] MEDS: BUMETANIDE 1 MG TABLET GT ×2 (09:27→20:16)
[2024-01-19] MEDS: FAMOTIDINE 20 MG TABLET GT (09:28)
[2024-01-19] MEDS: MULTIVITAMIN 1 TAB TABLET GT (09:28)
[2024-01-19] MEDS: FERROUS SULFATE 220 MG/5 ML ELIXIR 330 MG GT (09:28)
[2024-01-19] MEDS: VALPROIC ACID 250 MG/5 ML 1000 MG GT (09:29)
[2024-01-19] MEDS: POTASSIUM CHLORIDE 20 MEQ TAB.ER.PRT GT ×2 (09:29→20:03)
[2024-01-19] MEDS: levETIRAcetam 750 MG TABLET GT ×2 (09:32→20:03)
--- NOTE | 2024-01-19 16:20 | PC.SS ---
Resident received unannounced visit from [facility] resource developer SALTY/ Destiny Beckford. She came to ensure resident belongings are in place and ensure all QA. No concerns noted, she stated she would be back in 6 months for her next visit.
[2024-01-19] MEDS: CARBAMIDE PEROXIDE OTIC SOL 15 ML BTL 5 DROP BOTH EARS (20:03)
[2024-01-19] MEDS: LOSARTAN 25 MG TABLET GT (20:16)
--- NOTE | 2024-01-19 20:30 | PD.SAPROG ---
Progress Note - SubAcute DIAGNOSIS (1) Chronic respiratory failure with hypoxia: Status: Chronic (2) Dependent on ventilator: Status: Chronic (3) Congestive cardiac failure: Status: Chronic (4) Epilepsy, unspecified, intractable, without status epilepticus: Status: Chronic (5) Anemia: Status: Chronic (6) Hypothyroidism, unspecified: Status: Chronic (7) Developmental disorder of scholastic skills, unspecified: Status: Chronic (8) Age-related osteoporosis without current pathological fracture: Status: Chronic (9) Gastrostomy status: Status: Chronic (10) Tracheostomy status: Status: Chronic SUBJECTIVE Fever:: unchanged (low grade) GI:: none Shortness of Breath:: none GI:: no complaints Pain:: none OBJECTIVE Most recent vital signs: Last Vital Signs Temp 98.0 F 01/20/24 18:00 Pulse 98 01/20/24 20:23 Resp 30 H 01/20/24 18:00 BP 104/68 01/20/24 20:23 Pulse Ox 97 01/20/24 18:00 O2 Del Method Mechanical Ventilation 01/20/24 18:00 FiO2 41 01/20/24 12:10 Neurological:: awake Speech:: nods head and appropriate (Sometimes) Answers questions:: sometimes Respiratory:: lungs clear Cardiovascular: RRR Abdomen: soft and nontender Decubitus:: none Tracheostomy:: to ventilator Feeding per:: G tube Complaints:: none ASSESSMENT & PLAN Assessment: Patient with cognitive function deficits. ventilator dependent. No distress. Stable condition. Diagnosis and treatment reviewed. Pt does not tolerate weaning from Ventilator. Family updated in IDT. Pt.'s father is very supportive. Transient increase in leak around gastrostomy site with coffee-ground liquid positive for occult blood. Symptomatic ineffective hence patient transferred to ER 09/15/2023 for evaluation and management. Displacement of G-tube into the pyloric bulb seemed to be causing outflow obstruction which on repositioning and semi-deflating the tube balloon did resolve and pt received back later that night in a stable condition with G I consult. now back to baseline stable status.Pt on mittens b/l for pulling on life sustaining tubings. Pt's father involved in pt care and kept informed. No new issues Plan: Current treatment reviewed and continued
[2024-01-20] VITALS (10 sets, daily range): BP systolic 99–111; BP diastolic 57–69; PULSE 58–98; RESP 20–30; TEMP 36.4–36.9; O2SAT 97–99
[2024-01-20] MEDS: IPRATROPIUM/ALBUTEROL 3 ML AMPUL.NEB INH ×4 (00:51→18:25)
[2024-01-20] MEDS: LACTULOSE 10 GM/15 ML SOLUTION GT ×3 (05:08→21:15)
[2024-01-20] MEDS: LEVOTHYROXINE 50 MCG TABLET GT (05:09)
[2024-01-20] MEDS: BUMETANIDE 1 MG TABLET GT ×2 (08:25→20:23)
[2024-01-20] MEDS: acetaZOLAMIDE 250 MG TABLET GT ×2 (08:25→20:20)
[2024-01-20] MEDS: MULTIVITAMIN 1 TAB TABLET GT (08:26)
[2024-01-20] MEDS: FERROUS SULFATE 220 MG/5 ML ELIXIR 330 MG GT (08:26)
[2024-01-20] MEDS: levETIRAcetam 750 MG TABLET GT ×2 (08:26→20:23)
[2024-01-20] MEDS: FAMOTIDINE 20 MG TABLET GT (08:26)
[2024-01-20] MEDS: POTASSIUM CHLORIDE 20 MEQ TAB.ER.PRT GT ×2 (08:26→20:24)
[2024-01-20] MEDS: VALPROIC ACID 250 MG/5 ML 1000 MG GT (08:27)
--- NOTE | 2024-01-20 14:32 | PC.SS ---
Room visit: Resident is seen laying in bed with head of the bed elevated and call light properly placed with no signs of distress. He remains conserved by his father, he is unable to make needs known. Resident remains on ventilator with trach in place and GT for medication and nutrition. Resident will remain in current care and will continue to have all subacute care needs met by staff. This SSD will continue to make daily contact with resident and offer support as needed.
[2024-01-21] VITALS (11 sets, daily range): BP systolic 92–118; BP diastolic 50–75; PULSE 64–89; RESP 20–25; TEMP 35.7–36.6; O2SAT 96–99
[2024-01-21] MEDS: IPRATROPIUM/ALBUTEROL 3 ML AMPUL.NEB INH ×4 (01:10→18:25)
[2024-01-21] MEDS: LEVOTHYROXINE 50 MCG TABLET GT (05:02)
[2024-01-21] MEDS: LACTULOSE 10 GM/15 ML SOLUTION GT ×3 (05:02→21:16)
[2024-01-21] MEDS: acetaZOLAMIDE 250 MG TABLET GT ×2 (09:26→21:11)
[2024-01-21] MEDS: BUMETANIDE 1 MG TABLET GT ×2 (09:26→21:12)
[2024-01-21] MEDS: levETIRAcetam 750 MG TABLET GT ×2 (09:27→21:13)
[2024-01-21] MEDS: FAMOTIDINE 20 MG TABLET GT (09:27)
[2024-01-21] MEDS: POTASSIUM CHLORIDE 20 MEQ TAB.ER.PRT GT ×2 (09:27→21:14)
[2024-01-21] MEDS: VALPROIC ACID 250 MG/5 ML 1000 MG GT (09:27)
[2024-01-21] MEDS: FERROUS SULFATE 220 MG/5 ML ELIXIR 330 MG GT (09:27)
[2024-01-21] MEDS: MULTIVITAMIN 1 TAB TABLET GT (09:27)
[2024-01-22] VITALS (11 sets, daily range): BP systolic 95–129; BP diastolic 63–74; PULSE 68–102; RESP 20–27; TEMP 36.1–36.8; O2SAT 97–100
[2024-01-22] MEDS: IPRATROPIUM/ALBUTEROL 3 ML AMPUL.NEB INH ×4 (00:50→18:25)
[2024-01-22] MEDS: LACTULOSE 10 GM/15 ML SOLUTION GT ×3 (05:28→21:00)
[2024-01-22] MEDS: LEVOTHYROXINE 50 MCG TABLET GT (05:28)
[2024-01-22] MEDS: FAMOTIDINE 20 MG TABLET GT (09:09)
[2024-01-22] MEDS: BUMETANIDE 1 MG TABLET GT ×2 (09:10→20:58)
[2024-01-22] MEDS: acetaZOLAMIDE 250 MG TABLET GT ×2 (09:10→20:58)
[2024-01-22] MEDS: levETIRAcetam 750 MG TABLET GT ×2 (09:11→20:59)
[2024-01-22] MEDS: POTASSIUM CHLORIDE 20 MEQ TAB.ER.PRT GT ×2 (09:11→20:59)
[2024-01-22] MEDS: FERROUS SULFATE 220 MG/5 ML ELIXIR 330 MG GT (09:11)
[2024-01-22] MEDS: MULTIVITAMIN 1 TAB TABLET GT (09:11)
[2024-01-22] MEDS: VALPROIC ACID 250 MG/5 ML 1000 MG GT (09:12)
[2024-01-23] VITALS (12 sets, daily range): BP systolic 98–123; BP diastolic 64–74; PULSE 76–96; RESP 21–29; TEMP 36.1–37.1; O2SAT 97–99
[2024-01-23] MEDS: IPRATROPIUM/ALBUTEROL 3 ML AMPUL.NEB INH ×4 (00:30→18:25)
[2024-01-23] MEDS: LACTULOSE 10 GM/15 ML SOLUTION GT ×3 (05:40→21:16)
[2024-01-23] MEDS: LEVOTHYROXINE 50 MCG TABLET GT (05:40)
[2024-01-23] MEDS: BUMETANIDE 1 MG TABLET GT ×2 (09:11→20:30)
[2024-01-23] MEDS: acetaZOLAMIDE 250 MG TABLET GT ×2 (09:11→20:29)
[2024-01-23] MEDS: VALPROIC ACID 250 MG/5 ML 1000 MG GT (09:12)
[2024-01-23] MEDS: MULTIVITAMIN 1 TAB TABLET GT (09:12)
[2024-01-23] MEDS: CARVEDILOL 3.125 MG TABLET GT (09:12)
[2024-01-23] MEDS: FERROUS SULFATE 220 MG/5 ML ELIXIR 330 MG GT (09:12)
[2024-01-23] MEDS: ACETAMINOPHEN 325 MG TABLET 650 MG GT (09:12)
[2024-01-23] MEDS: POTASSIUM CHLORIDE 20 MEQ TAB.ER.PRT GT ×2 (09:12→20:33)
[2024-01-23] MEDS: FAMOTIDINE 20 MG TABLET GT (09:12)
[2024-01-23] MEDS: guaiFENesin Liq 100 MG/5 ML LIQUID GT (09:12)
[2024-01-23] MEDS: levETIRAcetam 750 MG TABLET GT ×2 (09:12→20:31)
--- NOTE | 2024-01-23 22:06 | PD.SAPROG ---
Progress Note - SubAcute DIAGNOSIS (1) Chronic respiratory failure with hypoxia: Status: Chronic (2) Dependent on ventilator: Status: Chronic (3) Congestive cardiac failure: Status: Chronic (4) Epilepsy, unspecified, intractable, without status epilepticus: Status: Chronic (5) Anemia: Status: Chronic (6) Hypothyroidism, unspecified: Status: Chronic (7) Developmental disorder of scholastic skills, unspecified: Status: Chronic (8) Age-related osteoporosis without current pathological fracture: Status: Chronic (9) Gastrostomy status: Status: Chronic (10) Tracheostomy status: Status: Chronic SUBJECTIVE Fever:: unchanged (low grade) GI:: none Shortness of Breath:: none GI:: no complaints Pain:: none OBJECTIVE Most recent vital signs: Last Vital Signs Temp 98.7 F 01/23/24 18:00 Pulse 89 01/23/24 20:33 Resp 27 H 01/23/24 18:00 BP 98/65 01/23/24 20:33 Pulse Ox 99 01/23/24 18:00 O2 Del Method Mechanical Ventilation 01/23/24 18:00 FiO2 41 01/23/24 11:05 Neurological:: awake Speech:: nods head and appropriate (Sometimes) Answers questions:: sometimes Respiratory:: lungs clear Cardiovascular: RRR Abdomen: soft and nontender Decubitus:: none Tracheostomy:: to ventilator Feeding per:: G tube Complaints:: none ASSESSMENT & PLAN Assessment: Patient with cognitive function deficits. ventilator dependent. No distress. Stable condition. Diagnosis and treatment reviewed. Pt does not tolerate weaning from Ventilator. Family updated in IDT. Pt.'s father is very supportive. Transient increase in leak around gastrostomy site with coffee-ground liquid positive for occult blood. Symptomatic ineffective hence patient transferred to ER 09/15/2023 for evaluation and management. Displacement of G-tube into the pyloric bulb seemed to be causing outflow obstruction which on repositioning and semi-deflating the tube balloon did resolve and pt received back later that night in a stable condition with G I consult. now back to baseline stable status.Pt on mittens b/l for pulling on life sustaining tubings. Pt's father involved in pt care and kept informed. No new issues Plan: Current treatment reviewed and continued
[2024-01-24] VITALS (8 sets, daily range): BP systolic 96–111; BP diastolic 59–74; PULSE 63–94; RESP 21–25; TEMP 36.1–37.2; O2SAT 22–99
[2024-01-24] MEDS: IPRATROPIUM/ALBUTEROL 3 ML AMPUL.NEB INH ×4 (00:30→18:35)
[2024-01-24] MEDS: LEVOTHYROXINE 50 MCG TABLET GT (06:17)
[2024-01-24] MEDS: LACTULOSE 10 GM/15 ML SOLUTION GT ×3 (06:17→21:32)
[2024-01-24] MEDS: BUMETANIDE 1 MG TABLET GT ×2 (08:31→20:40)
[2024-01-24] MEDS: acetaZOLAMIDE 250 MG TABLET GT ×2 (08:31→20:40)
[2024-01-24] MEDS: FAMOTIDINE 20 MG TABLET GT (08:32)
[2024-01-24] MEDS: FERROUS SULFATE 220 MG/5 ML ELIXIR 330 MG GT (08:33)
[2024-01-24] MEDS: levETIRAcetam 750 MG TABLET GT ×2 (08:34→20:41)
[2024-01-24] MEDS: MULTIVITAMIN 1 TAB TABLET GT (08:34)
[2024-01-24] MEDS: POTASSIUM CHLORIDE 20 MEQ TAB.ER.PRT GT ×2 (08:34→20:41)
[2024-01-24] MEDS: VALPROIC ACID 250 MG/5 ML 1000 MG GT (08:35)
[2024-01-25] VITALS (11 sets, daily range): BP systolic 95–110; BP diastolic 56–69; PULSE 71–91; RESP 19–26; TEMP 36.6–36.9; O2SAT 97–100
[2024-01-25] MEDS: IPRATROPIUM/ALBUTEROL 3 ML AMPUL.NEB INH ×4 (00:46→18:24)
[2024-01-25] MEDS: LACTULOSE 10 GM/15 ML SOLUTION GT ×3 (05:15→21:19)
[2024-01-25] MEDS: LEVOTHYROXINE 50 MCG TABLET GT (05:15)
[2024-01-25] MEDS: acetaZOLAMIDE 250 MG TABLET GT ×2 (09:15→20:05)
[2024-01-25] MEDS: BUMETANIDE 1 MG TABLET GT ×2 (09:15→20:05)
[2024-01-25] MEDS: FAMOTIDINE 20 MG TABLET GT (09:17)
[2024-01-25] MEDS: FERROUS SULFATE 220 MG/5 ML ELIXIR 330 MG GT (09:17)
[2024-01-25] MEDS: levETIRAcetam 750 MG TABLET GT ×2 (09:18→20:06)
[2024-01-25] MEDS: MULTIVITAMIN 1 TAB TABLET GT (09:18)
[2024-01-25] MEDS: VALPROIC ACID 250 MG/5 ML 1000 MG GT (09:18)
[2024-01-25] MEDS: POTASSIUM CHLORIDE 20 MEQ TAB.ER.PRT GT ×2 (09:18→20:07)
--- NOTE | 2024-01-25 12:30 | PD.SAPROG ---
Progress Note - SubAcute DIAGNOSIS (1) Chronic respiratory failure with hypoxia: Status: Chronic (2) Dependent on ventilator: Status: Chronic (3) Congestive cardiac failure: Status: Chronic (4) Epilepsy, unspecified, intractable, without status epilepticus: Status: Chronic (5) Anemia: Status: Chronic (6) Hypothyroidism, unspecified: Status: Chronic (7) Developmental disorder of scholastic skills, unspecified: Status: Chronic (8) Age-related osteoporosis without current pathological fracture: Status: Chronic (9) Gastrostomy status: Status: Chronic (10) Tracheostomy status: Status: Chronic SUBJECTIVE Fever:: unchanged (low grade) GI:: none Shortness of Breath:: none GI:: no complaints Pain:: none OBJECTIVE Most recent vital signs: Last Vital Signs Temp 97.9 F 01/30/24 11:35 Pulse 74 01/30/24 12:14 Resp 20 01/30/24 12:14 BP 114/74 01/30/24 11:35 Pulse Ox 100 01/30/24 12:14 O2 Del Method Mechanical Ventilation 01/30/24 05:50 FiO2 42 01/30/24 12:14 Neurological:: awake Speech:: nods head and appropriate (Sometimes) Answers questions:: sometimes Respiratory:: lungs clear Cardiovascular: RRR Abdomen: soft and nontender Decubitus:: none Tracheostomy:: to ventilator Feeding per:: G tube Complaints:: none ASSESSMENT & PLAN Assessment: Patient with cognitive function deficits. ventilator dependent. No distress. Stable condition. Diagnosis and treatment reviewed. Pt does not tolerate weaning from Ventilator. Family updated in IDT. Pt.'s father is very supportive. Transient increase in leak around gastrostomy site with coffee-ground liquid positive for occult blood. Symptomatic ineffective hence patient transferred to ER 09/15/2023 for evaluation and management. Displacement of G-tube into the pyloric bulb seemed to be causing outflow obstruction which on repositioning and semi-deflating the tube balloon did resolve and pt received back later that night in a stable condition with G I consult. now back to baseline stable status.Pt on mittens b/l for pulling on life sustaining tubings. Pt's father involved in pt care and kept informed. No new issues Plan: Current treatment reviewed and continued
[2024-01-26] VITALS (9 sets, daily range): BP systolic 92–131; BP diastolic 59–83; PULSE 65–83; RESP 20–29; TEMP 36.6–36.9; O2SAT 97–100
[2024-01-26] MEDS: IPRATROPIUM/ALBUTEROL 3 ML AMPUL.NEB INH ×4 (00:38→18:18)
[2024-01-26] MEDS: LACTULOSE 10 GM/15 ML SOLUTION GT ×3 (05:28→21:07)
[2024-01-26] MEDS: LEVOTHYROXINE 50 MCG TABLET GT (05:29)
[2024-01-26] MEDS: BUMETANIDE 1 MG TABLET GT ×2 (08:30→20:25)
[2024-01-26] MEDS: CARVEDILOL 3.125 MG TABLET GT (08:30)
[2024-01-26] MEDS: acetaZOLAMIDE 250 MG TABLET GT ×2 (08:30→20:25)
[2024-01-26] MEDS: guaiFENesin Liq 100 MG/5 ML LIQUID GT (08:31)
[2024-01-26] MEDS: POTASSIUM CHLORIDE 20 MEQ TAB.ER.PRT GT ×2 (08:31→20:26)
[2024-01-26] MEDS: levETIRAcetam 750 MG TABLET GT ×2 (08:31→20:25)
[2024-01-26] MEDS: FAMOTIDINE 20 MG TABLET GT (08:31)
[2024-01-26] MEDS: MULTIVITAMIN 1 TAB TABLET GT (08:31)
[2024-01-26] MEDS: VALPROIC ACID 250 MG/5 ML 1000 MG GT (08:31)
[2024-01-26] MEDS: ACETAMINOPHEN 325 MG TABLET 650 MG GT (08:31)
[2024-01-26] MEDS: FERROUS SULFATE 220 MG/5 ML ELIXIR 330 MG GT (08:31)
[2024-01-27] VITALS (12 sets, daily range): BP systolic 94–132; BP diastolic 52–81; PULSE 59–73; RESP 20–25; TEMP 36.3–36.9; O2SAT 97–99
[2024-01-27] MEDS: IPRATROPIUM/ALBUTEROL 3 ML AMPUL.NEB INH ×4 (00:08→18:55)
[2024-01-27] MEDS: LACTULOSE 10 GM/15 ML SOLUTION GT ×2 (05:17→13:54)
[2024-01-27] MEDS: LEVOTHYROXINE 50 MCG TABLET GT (05:18)
[2024-01-27] MEDS: acetaZOLAMIDE 250 MG TABLET GT ×2 (08:50→20:28)
[2024-01-27] MEDS: FERROUS SULFATE 220 MG/5 ML ELIXIR 330 MG GT (08:50)
[2024-01-27] MEDS: levETIRAcetam 750 MG TABLET GT ×2 (08:50→20:29)
[2024-01-27] MEDS: BUMETANIDE 1 MG TABLET GT ×2 (08:50→20:28)
[2024-01-27] MEDS: FAMOTIDINE 20 MG TABLET GT (08:50)
[2024-01-27] MEDS: POTASSIUM CHLORIDE 20 MEQ TAB.ER.PRT GT ×2 (08:51→20:29)
[2024-01-27] MEDS: MULTIVITAMIN 1 TAB TABLET GT (08:51)
[2024-01-27] MEDS: VALPROIC ACID 250 MG/5 ML 1000 MG GT (08:51)
[2024-01-27] MEDS: ACETAMINOPHEN 325 MG TABLET 650 MG GT (08:54)
[2024-01-27] MEDS: guaiFENesin Liq 100 MG/5 ML LIQUID GT (08:54)
--- NOTE | 2024-01-27 14:41 | PC.SS ---
Room visit: Resident is laying in bed with head of the bed elevated with call light properly placed with no signs of distress. Resident remains on ventilator with trach in place with GT in place for medication and nutrition. Resident will remain in current care and will continue to have all subacute care needs met by staff. This SSD will make daily contact with resident and offer support as needed.
[2024-01-28] VITALS (11 sets, daily range): BP systolic 92–123; BP diastolic 60–77; PULSE 62–98; RESP 20–27; TEMP 35.8–36.8; O2SAT 99–100
[2024-01-28] MEDS: IPRATROPIUM/ALBUTEROL 3 ML AMPUL.NEB INH ×4 (00:16→18:44)
[2024-01-28] MEDS: LEVOTHYROXINE 50 MCG TABLET GT (05:16)
[2024-01-28] MEDS: MULTIVITAMIN 1 TAB TABLET GT (08:35)
[2024-01-28] MEDS: FERROUS SULFATE 220 MG/5 ML ELIXIR 330 MG GT (08:35)
[2024-01-28] MEDS: FAMOTIDINE 20 MG TABLET GT (08:35)
[2024-01-28] MEDS: levETIRAcetam 750 MG TABLET GT ×2 (08:35→20:33)
[2024-01-28] MEDS: acetaZOLAMIDE 250 MG TABLET GT ×2 (08:35→20:31)
[2024-01-28] MEDS: BUMETANIDE 1 MG TABLET GT ×2 (08:35→20:32)
[2024-01-28] MEDS: ACETAMINOPHEN 325 MG TABLET 650 MG GT (08:36)
[2024-01-28] MEDS: VALPROIC ACID 250 MG/5 ML 1000 MG GT (08:36)
[2024-01-28] MEDS: guaiFENesin Liq 100 MG/5 ML LIQUID GT (08:36)
[2024-01-28] MEDS: POTASSIUM CHLORIDE 20 MEQ TAB.ER.PRT GT ×2 (08:36→20:33)
[2024-01-28] MEDS: LACTULOSE 10 GM/15 ML SOLUTION GT ×2 (13:25→21:21)
[2024-01-29] VITALS (11 sets, daily range): BP systolic 96–118; BP diastolic 61–72; PULSE 64–112; RESP 20–29; TEMP 36–37.1; O2SAT 97–100
[2024-01-29] MEDS: IPRATROPIUM/ALBUTEROL 3 ML AMPUL.NEB INH ×4 (01:02→19:08)
[2024-01-29] MEDS: LACTULOSE 10 GM/15 ML SOLUTION GT ×3 (05:10→21:18)
[2024-01-29] MEDS: LEVOTHYROXINE 50 MCG TABLET GT (05:10)
[2024-01-29] MEDS: FAMOTIDINE 20 MG TABLET GT (08:49)
[2024-01-29] MEDS: CARVEDILOL 3.125 MG TABLET GT (08:49)
[2024-01-29] MEDS: BUMETANIDE 1 MG TABLET GT ×2 (08:49→20:26)
[2024-01-29] MEDS: POTASSIUM CHLORIDE 20 MEQ TAB.ER.PRT GT ×2 (08:50→20:27)
[2024-01-29] MEDS: acetaZOLAMIDE 250 MG TABLET GT ×2 (08:50→20:25)
[2024-01-29] MEDS: FERROUS SULFATE 220 MG/5 ML ELIXIR 330 MG GT (08:51)
[2024-01-29] MEDS: levETIRAcetam 750 MG TABLET GT ×2 (08:51→20:26)
[2024-01-29] MEDS: MULTIVITAMIN 1 TAB TABLET GT (08:51)
[2024-01-29] MEDS: VALPROIC ACID 250 MG/5 ML 1000 MG GT (08:51)
--- NOTE | 2024-01-29 21:51 | PC.RT ---
vent alarming high pressure, pt coughing suction a moderate amount of cream yellow thin sputum, no distress noted spo2 99%
[2024-01-30] VITALS (11 sets, daily range): BP systolic 93–114; BP diastolic 56–74; PULSE 72–98; RESP 20–34; TEMP 36.5–37.5; O2SAT 97–100
[2024-01-30] MEDS: IPRATROPIUM/ALBUTEROL 3 ML AMPUL.NEB INH ×4 (00:19→19:00)
[2024-01-30] MEDS: acetaZOLAMIDE 250 MG TABLET GT ×2 (08:45→20:43)
[2024-01-30] MEDS: BUMETANIDE 1 MG TABLET GT ×2 (08:45→20:43)
[2024-01-30] MEDS: FAMOTIDINE 20 MG TABLET GT (08:46)
[2024-01-30] MEDS: MULTIVITAMIN 1 TAB TABLET GT (08:46)
[2024-01-30] MEDS: FERROUS SULFATE 220 MG/5 ML ELIXIR 330 MG GT (08:46)
[2024-01-30] MEDS: levETIRAcetam 750 MG TABLET GT ×2 (08:46→20:44)
[2024-01-30] MEDS: VALPROIC ACID 250 MG/5 ML 1000 MG GT (08:47)
[2024-01-30] MEDS: POTASSIUM CHLORIDE 20 MEQ TAB.ER.PRT GT ×2 (08:47→20:44)
[2024-01-30] MEDS: LACTULOSE 10 GM/15 ML SOLUTION GT ×2 (13:50→21:28)
[2024-01-30] MEDS: ACETAMINOPHEN 325 MG TABLET 650 MG GT (23:20)
[2024-01-31] VITALS (9 sets, daily range): BP systolic 93–105; BP diastolic 57–70; PULSE 62–91; RESP 22–26; TEMP 36.5–37; O2SAT 97–100
[2024-01-31] MEDS: IPRATROPIUM/ALBUTEROL 3 ML AMPUL.NEB INH ×4 (00:02→21:20)
[2024-01-31] MEDS: LACTULOSE 10 GM/15 ML SOLUTION GT ×3 (05:22→22:00)
[2024-01-31] MEDS: LEVOTHYROXINE 50 MCG TABLET GT (05:22)
[2024-01-31] MEDS: acetaZOLAMIDE 250 MG TABLET GT ×2 (08:34→20:16)
[2024-01-31] MEDS: BUMETANIDE 1 MG TABLET GT ×2 (08:34→20:17)
[2024-01-31] MEDS: FAMOTIDINE 20 MG TABLET GT (08:34)
[2024-01-31] MEDS: POTASSIUM CHLORIDE 20 MEQ TAB.ER.PRT GT ×2 (08:35→20:17)
[2024-01-31] MEDS: VALPROIC ACID 250 MG/5 ML 1000 MG GT (08:35)
[2024-01-31] MEDS: FERROUS SULFATE 220 MG/5 ML ELIXIR 330 MG GT (08:35)
[2024-01-31] MEDS: guaiFENesin Liq 100 MG/5 ML LIQUID GT (08:35)
[2024-01-31] MEDS: ACETAMINOPHEN 325 MG TABLET 650 MG GT (08:35)
[2024-01-31] MEDS: levETIRAcetam 750 MG TABLET GT ×2 (08:35→20:17)
[2024-01-31] MEDS: MULTIVITAMIN 1 TAB TABLET GT (08:35)
[2024-02-01] VITALS (12 sets, daily range): BP systolic 96–122; BP diastolic 61–73; PULSE 68–85; RESP 20–30; TEMP 36.7–37.2; O2SAT 98–100
[2024-02-01] MEDS: IPRATROPIUM/ALBUTEROL 3 ML AMPUL.NEB INH ×4 (01:10→18:59)
[2024-02-01] MEDS: LEVOTHYROXINE 50 MCG TABLET GT (05:27)
[2024-02-01] MEDS: LACTULOSE 10 GM/15 ML SOLUTION GT ×3 (05:27→21:53)
[2024-02-01] MEDS: CARVEDILOL 3.125 MG TABLET GT (08:18)
[2024-02-01] MEDS: levETIRAcetam 750 MG TABLET GT ×2 (08:18→20:49)
[2024-02-01] MEDS: FAMOTIDINE 20 MG TABLET GT (08:18)
[2024-02-01] MEDS: FERROUS SULFATE 220 MG/5 ML ELIXIR 330 MG GT (08:18)
[2024-02-01] MEDS: acetaZOLAMIDE 250 MG TABLET GT ×2 (08:18→20:48)
[2024-02-01] MEDS: BUMETANIDE 1 MG TABLET GT ×2 (08:18→20:49)
[2024-02-01] MEDS: POTASSIUM CHLORIDE 20 MEQ TAB.ER.PRT GT ×2 (08:19→20:50)
[2024-02-01] MEDS: MULTIVITAMIN 1 TAB TABLET GT (08:19)
[2024-02-01] MEDS: VALPROIC ACID 250 MG/5 ML 1000 MG GT (08:19)
[2024-02-01] MEDS: ACETAMINOPHEN 325 MG TABLET 650 MG GT (08:20)
[2024-02-01] MEDS: guaiFENesin Liq 100 MG/5 ML LIQUID GT (08:22)
[2024-02-02] VITALS (11 sets, daily range): BP systolic 100–112; BP diastolic 64–68; PULSE 64–80; RESP 20–27; TEMP 37.1–37.4; O2SAT 98–99
[2024-02-02] MEDS: IPRATROPIUM/ALBUTEROL 3 ML AMPUL.NEB INH ×4 (00:47→18:58)
[2024-02-02] MEDS: LACTULOSE 10 GM/15 ML SOLUTION GT ×3 (05:03→21:10)
[2024-02-02] MEDS: LEVOTHYROXINE 50 MCG TABLET GT (06:15)
[2024-02-02] MEDS: FAMOTIDINE 20 MG TABLET GT (08:48)
[2024-02-02] MEDS: acetaZOLAMIDE 250 MG TABLET GT ×2 (08:48→20:08)
[2024-02-02] MEDS: BUMETANIDE 1 MG TABLET GT ×2 (08:48→20:08)
[2024-02-02] MEDS: MULTIVITAMIN 1 TAB TABLET GT (08:49)
[2024-02-02] MEDS: levETIRAcetam 750 MG TABLET GT ×2 (08:49→20:09)
[2024-02-02] MEDS: POTASSIUM CHLORIDE 20 MEQ TAB.ER.PRT GT ×2 (08:49→20:09)
[2024-02-02] MEDS: FERROUS SULFATE 220 MG/5 ML ELIXIR 330 MG GT (08:49)
[2024-02-02] MEDS: VALPROIC ACID 250 MG/5 ML 1000 MG GT (08:50)
[2024-02-02] MEDS: LOSARTAN 25 MG TABLET GT (20:09)
[2024-02-02] MEDS: guaiFENesin Liq 100 MG/5 ML LIQUID GT (21:10)
[2024-02-02] MEDS: ACETAMINOPHEN 325 MG TABLET 650 MG GT (21:10)
[2024-02-03] VITALS (9 sets, daily range): BP systolic 90–122; BP diastolic 54–70; PULSE 68–98; RESP 21–30; TEMP 36.2–36.7; O2SAT 97–99
[2024-02-03] MEDS: IPRATROPIUM/ALBUTEROL 3 ML AMPUL.NEB INH ×4 (00:10→18:15)
[2024-02-03] MEDS: LEVOTHYROXINE 50 MCG TABLET GT (05:20)
[2024-02-03] MEDS: LACTULOSE 10 GM/15 ML SOLUTION GT ×2 (05:20→21:00)
[2024-02-03] MEDS: acetaZOLAMIDE 250 MG TABLET GT ×2 (08:37→20:40)
[2024-02-03] MEDS: MULTIVITAMIN 1 TAB TABLET GT (08:38)
[2024-02-03] MEDS: levETIRAcetam 750 MG TABLET GT ×2 (08:38→20:41)
[2024-02-03] MEDS: FAMOTIDINE 20 MG TABLET GT (08:38)
[2024-02-03] MEDS: BUMETANIDE 1 MG TABLET GT ×2 (08:38→20:41)
[2024-02-03] MEDS: FERROUS SULFATE 220 MG/5 ML ELIXIR 330 MG GT (08:38)
[2024-02-03] MEDS: POTASSIUM CHLORIDE 20 MEQ TAB.ER.PRT GT ×2 (08:39→20:41)
[2024-02-03] MEDS: VALPROIC ACID 250 MG/5 ML 1000 MG GT (08:39)
--- NOTE | 2024-02-03 22:55 | PD.SAPROG ---
Progress Note - SubAcute DIAGNOSIS (1) Chronic respiratory failure with hypoxia: Status: Chronic (2) Dependent on ventilator: Status: Chronic (3) Congestive cardiac failure: Status: Chronic (4) Epilepsy, unspecified, intractable, without status epilepticus: Status: Chronic (5) Anemia: Status: Chronic (6) Hypothyroidism, unspecified: Status: Chronic (7) Developmental disorder of scholastic skills, unspecified: Status: Chronic (8) Age-related osteoporosis without current pathological fracture: Status: Chronic (9) Gastrostomy status: Status: Chronic (10) Tracheostomy status: Status: Chronic SUBJECTIVE Fever:: unchanged (low grade) GI:: none Shortness of Breath:: none GI:: no complaints Pain:: none OBJECTIVE Most recent vital signs: Last Vital Signs Temp 97.1 F 02/03/24 12:00 Pulse 68 02/03/24 20:41 Resp 30 H 02/03/24 12:00 BP 90/54 L 02/03/24 20:41 Pulse Ox 99 02/03/24 11:19 O2 Del Method Mechanical Ventilation 02/03/24 06:00 FiO2 40 02/03/24 11:19 Neurological:: awake Speech:: nods head and appropriate (Sometimes) Answers questions:: sometimes Respiratory:: lungs clear Cardiovascular: RRR Abdomen: soft and nontender Decubitus:: none Tracheostomy:: to ventilator Feeding per:: G tube Complaints:: none ASSESSMENT & PLAN Assessment: Patient with cognitive function deficits. ventilator dependent. No distress. Stable condition. Diagnosis and treatment reviewed. Pt does not tolerate weaning from Ventilator. Family updated in IDT. Pt.'s father is very supportive. Transient increase in leak around gastrostomy site with coffee-ground liquid positive for occult blood. Symptomatic ineffective hence patient transferred to ER 09/15/2023 for evaluation and management. Displacement of G-tube into the pyloric bulb seemed to be causing outflow obstruction which on repositioning and semi-deflating the tube balloon did resolve and pt received back later that night in a stable condition with G I consult. now back to baseline stable status.Pt on mittens b/l for pulling on life sustaining tubings. Pt's father involved in pt care and kept informed. No new issues Plan: Current treatment reviewed and continued
[2024-02-04] VITALS (9 sets, daily range): BP systolic 101–117; BP diastolic 64–70; PULSE 62–94; RESP 19–27; TEMP 35.7–36.5; O2SAT 96–100
[2024-02-04] MEDS: IPRATROPIUM/ALBUTEROL 3 ML AMPUL.NEB INH ×4 (00:30→18:10)
--- NOTE | 2024-02-04 00:53 | PC.RT ---
vincentb ordered at 00:48, order confirmed by [place] from pharmacy.
[2024-02-04] MEDS: LEVOTHYROXINE 50 MCG TABLET GT (05:23)
[2024-02-04] MEDS: LACTULOSE 10 GM/15 ML SOLUTION GT ×3 (05:23→21:06)
[2024-02-04] MEDS: acetaZOLAMIDE 250 MG TABLET GT ×2 (08:38→20:13)
[2024-02-04] MEDS: BUMETANIDE 1 MG TABLET GT ×2 (08:38→20:14)
[2024-02-04] MEDS: FAMOTIDINE 20 MG TABLET GT (08:39)
[2024-02-04] MEDS: FERROUS SULFATE 220 MG/5 ML ELIXIR 330 MG GT (08:40)
[2024-02-04] MEDS: levETIRAcetam 750 MG TABLET GT ×2 (08:40→20:14)
[2024-02-04] MEDS: MULTIVITAMIN 1 TAB TABLET GT (08:40)
[2024-02-04] MEDS: POTASSIUM CHLORIDE 20 MEQ TAB.ER.PRT GT ×2 (08:41→20:15)
[2024-02-04] MEDS: VALPROIC ACID 250 MG/5 ML 1000 MG GT (08:41)
[2024-02-05] VITALS (10 sets, daily range): BP systolic 100–114; BP diastolic 61–70; PULSE 66–92; RESP 20–30; TEMP 36.2–36.6; O2SAT 97–99
[2024-02-05] MEDS: IPRATROPIUM/ALBUTEROL 3 ML AMPUL.NEB INH ×4 (00:15→18:30)
[2024-02-05] MEDS: LACTULOSE 10 GM/15 ML SOLUTION GT ×3 (05:00→20:59)
[2024-02-05] MEDS: LEVOTHYROXINE 50 MCG TABLET GT (05:00)
[2024-02-05] MEDS: FAMOTIDINE 20 MG TABLET GT (08:34)
[2024-02-05] MEDS: acetaZOLAMIDE 250 MG TABLET GT ×2 (08:34→20:19)
[2024-02-05] MEDS: BUMETANIDE 1 MG TABLET GT ×2 (08:34→20:19)
[2024-02-05] MEDS: VALPROIC ACID 250 MG/5 ML 1000 MG GT (08:36)
[2024-02-05] MEDS: MULTIVITAMIN 1 TAB TABLET GT (08:36)
[2024-02-05] MEDS: FERROUS SULFATE 220 MG/5 ML ELIXIR 330 MG GT (08:36)
[2024-02-05] MEDS: levETIRAcetam 750 MG TABLET GT ×2 (08:36→20:19)
[2024-02-05] MEDS: POTASSIUM CHLORIDE 20 MEQ TAB.ER.PRT GT ×2 (08:36→20:19)
[2024-02-06] VITALS (12 sets, daily range): BP systolic 96–118; BP diastolic 64–76; PULSE 68–97; RESP 21–33; TEMP 36.3–36.7; O2SAT 94–99
[2024-02-06] MEDS: IPRATROPIUM/ALBUTEROL 3 ML AMPUL.NEB INH ×4 (00:38→18:20)
[2024-02-06] MEDS: LACTULOSE 10 GM/15 ML SOLUTION GT ×3 (05:24→21:33)
[2024-02-06] MEDS: LEVOTHYROXINE 50 MCG TABLET GT (05:25)
[2024-02-06] MEDS: acetaZOLAMIDE 250 MG TABLET GT ×2 (09:00→20:37)
[2024-02-06] MEDS: BUMETANIDE 1 MG TABLET GT ×2 (09:01→20:37)
[2024-02-06] MEDS: CARVEDILOL 3.125 MG TABLET GT (09:02)
[2024-02-06] MEDS: FAMOTIDINE 20 MG TABLET GT (09:02)
[2024-02-06] MEDS: FERROUS SULFATE 220 MG/5 ML ELIXIR 330 MG GT (09:03)
[2024-02-06] MEDS: levETIRAcetam 750 MG TABLET GT ×2 (09:03→20:37)
[2024-02-06] MEDS: MULTIVITAMIN 1 TAB TABLET GT (09:04)
[2024-02-06] MEDS: POTASSIUM CHLORIDE 20 MEQ TAB.ER.PRT GT ×2 (09:04→20:38)
[2024-02-06] MEDS: VALPROIC ACID 250 MG/5 ML 1000 MG GT (09:05)
[2024-02-07] VITALS (10 sets, daily range): BP systolic 98–115; BP diastolic 61–70; PULSE 63–93; RESP 20–33; TEMP 36.2–36.4; O2SAT 96–99
[2024-02-07] MEDS: IPRATROPIUM/ALBUTEROL 3 ML AMPUL.NEB INH ×4 (00:27→18:20)
[2024-02-07] MEDS: LACTULOSE 10 GM/15 ML SOLUTION GT ×3 (05:28→21:20)
[2024-02-07] MEDS: LEVOTHYROXINE 50 MCG TABLET GT (05:45)
[2024-02-07] MEDS: acetaZOLAMIDE 250 MG TABLET GT ×2 (08:17→20:45)
[2024-02-07] MEDS: FAMOTIDINE 20 MG TABLET GT (08:18)
[2024-02-07] MEDS: CARVEDILOL 3.125 MG TABLET GT (08:18)
[2024-02-07] MEDS: levETIRAcetam 750 MG TABLET GT ×2 (08:18→20:46)
[2024-02-07] MEDS: BUMETANIDE 1 MG TABLET GT ×2 (08:18→20:46)
[2024-02-07] MEDS: FERROUS SULFATE 220 MG/5 ML ELIXIR 330 MG GT (08:18)
[2024-02-07] MEDS: MULTIVITAMIN 1 TAB TABLET GT (08:19)
[2024-02-07] MEDS: POTASSIUM CHLORIDE 20 MEQ TAB.ER.PRT GT ×2 (08:19→20:46)
[2024-02-07] MEDS: VALPROIC ACID 250 MG/5 ML 1000 MG GT (08:21)
--- NOTE | 2024-02-07 12:30 | PD.SAPROG ---
Progress Note - SubAcute DIAGNOSIS (1) Chronic respiratory failure with hypoxia: Status: Chronic (2) Dependent on ventilator: Status: Chronic (3) Congestive cardiac failure: Status: Chronic (4) Epilepsy, unspecified, intractable, without status epilepticus: Status: Chronic (5) Anemia: Status: Chronic (6) Hypothyroidism, unspecified: Status: Chronic (7) Developmental disorder of scholastic skills, unspecified: Status: Chronic (8) Age-related osteoporosis without current pathological fracture: Status: Chronic (9) Gastrostomy status: Status: Chronic (10) Tracheostomy status: Status: Chronic SUBJECTIVE Fever:: unchanged (low grade) GI:: none Shortness of Breath:: none GI:: no complaints Pain:: none OBJECTIVE Most recent vital signs: Last Vital Signs Temp 97.5 F 02/08/24 17:06 Pulse 79 02/09/24 00:47 Resp 24 H 02/09/24 00:47 BP 118/70 02/08/24 20:31 Pulse Ox 99 02/09/24 00:47 O2 Del Method Mechanical Ventilation 02/08/24 17:06 FiO2 44 02/09/24 00:47 Neurological:: awake Speech:: nods head and appropriate (Sometimes) Answers questions:: sometimes Respiratory:: lungs clear Cardiovascular: RRR Abdomen: soft and nontender Decubitus:: none Tracheostomy:: to ventilator Feeding per:: G tube Complaints:: none ASSESSMENT & PLAN Assessment: Patient with cognitive function deficits. ventilator dependent. No distress. Stable condition. Diagnosis and treatment reviewed. Pt does not tolerate weaning from Ventilator. Family updated in IDT. Pt.'s father is very supportive. Transient increase in leak around gastrostomy site with coffee-ground liquid positive for occult blood. Symptomatic ineffective hence patient transferred to ER 09/15/2023 for evaluation and management. Displacement of G-tube into the pyloric bulb seemed to be causing outflow obstruction which on repositioning and semi-deflating the tube balloon did resolve and pt received back later that night in a stable condition with G I consult. now back to baseline stable status.Pt on mittens b/l for pulling on life sustaining tubings. Pt's father involved in pt care and kept informed. No new issues Plan: Current treatment reviewed and continued
[2024-02-08] VITALS (11 sets, daily range): BP systolic 104–130; BP diastolic 65–77; PULSE 71–91; RESP 20–28; TEMP 36.4–36.5; O2SAT 97–99
[2024-02-08] MEDS: IPRATROPIUM/ALBUTEROL 3 ML AMPUL.NEB INH ×4 (01:04→18:40)
[2024-02-08] MEDS: LEVOTHYROXINE 50 MCG TABLET GT (05:18)
[2024-02-08] MEDS: LACTULOSE 10 GM/15 ML SOLUTION GT ×3 (05:18→21:11)
[2024-02-08] MEDS: BUMETANIDE 1 MG TABLET GT ×2 (08:32→20:31)
[2024-02-08] MEDS: acetaZOLAMIDE 250 MG TABLET GT ×2 (08:32→20:31)
[2024-02-08] MEDS: CARVEDILOL 3.125 MG TABLET GT (08:33)
[2024-02-08] MEDS: FAMOTIDINE 20 MG TABLET GT (08:33)
[2024-02-08] MEDS: FERROUS SULFATE 220 MG/5 ML ELIXIR 330 MG GT (08:33)
[2024-02-08] MEDS: MULTIVITAMIN 1 TAB TABLET GT (08:33)
[2024-02-08] MEDS: levETIRAcetam 750 MG TABLET GT ×2 (08:33→20:31)
[2024-02-08] MEDS: VALPROIC ACID 250 MG/5 ML 1000 MG GT (08:33)
[2024-02-08] MEDS: POTASSIUM CHLORIDE 20 MEQ TAB.ER.PRT GT ×2 (08:33→20:31)
[2024-02-08] MEDS: LOSARTAN 25 MG TABLET GT (20:31)
[2024-02-09] VITALS (10 sets, daily range): BP systolic 95–124; BP diastolic 54–73; PULSE 62–90; RESP 17–31; TEMP 36.2–36.7; O2SAT 97–100
[2024-02-09] MEDS: IPRATROPIUM/ALBUTEROL 3 ML AMPUL.NEB INH ×4 (00:47→18:50)
[2024-02-09] MEDS: LACTULOSE 10 GM/15 ML SOLUTION GT ×3 (05:30→21:35)
[2024-02-09] MEDS: LEVOTHYROXINE 50 MCG TABLET GT (05:30)
[2024-02-09] MEDS: acetaZOLAMIDE 250 MG TABLET GT ×2 (08:57→21:08)
[2024-02-09] MEDS: FERROUS SULFATE 220 MG/5 ML ELIXIR 330 MG GT (08:57)
[2024-02-09] MEDS: BUMETANIDE 1 MG TABLET GT ×2 (08:57→21:09)
[2024-02-09] MEDS: FAMOTIDINE 20 MG TABLET GT (08:57)
[2024-02-09] MEDS: MULTIVITAMIN 1 TAB TABLET GT (08:58)
[2024-02-09] MEDS: POTASSIUM CHLORIDE 20 MEQ TAB.ER.PRT GT ×2 (08:58→21:10)
[2024-02-09] MEDS: levETIRAcetam 750 MG TABLET GT ×2 (08:58→21:10)
[2024-02-09] MEDS: VALPROIC ACID 250 MG/5 ML 1000 MG GT (08:58)
[2024-02-09] MEDS: ACETAMINOPHEN 325 MG TABLET 650 MG GT (17:54)
[2024-02-10] VITALS (11 sets, daily range): BP systolic 100–144; BP diastolic 60–75; PULSE 61–88; RESP 18–30; TEMP 36.3–36.7; O2SAT 98–99
[2024-02-10] MEDS: IPRATROPIUM/ALBUTEROL 3 ML AMPUL.NEB INH ×4 (00:30→18:35)
[2024-02-10] MEDS: LACTULOSE 10 GM/15 ML SOLUTION GT ×3 (05:53→21:00)
[2024-02-10] MEDS: LEVOTHYROXINE 50 MCG TABLET GT (05:53)
[2024-02-10] MEDS: MULTIVITAMIN 1 TAB TABLET GT (08:36)
[2024-02-10] MEDS: BUMETANIDE 1 MG TABLET GT ×2 (08:36→20:53)
[2024-02-10] MEDS: levETIRAcetam 750 MG TABLET GT ×2 (08:36→20:54)
[2024-02-10] MEDS: CARVEDILOL 3.125 MG TABLET GT (08:36)
[2024-02-10] MEDS: FAMOTIDINE 20 MG TABLET GT (08:36)
[2024-02-10] MEDS: acetaZOLAMIDE 250 MG TABLET GT ×2 (08:36→20:53)
[2024-02-10] MEDS: FERROUS SULFATE 220 MG/5 ML ELIXIR 330 MG GT (08:36)
[2024-02-10] MEDS: POTASSIUM CHLORIDE 20 MEQ TAB.ER.PRT GT ×2 (08:37→20:54)
[2024-02-10] MEDS: VALPROIC ACID 250 MG/5 ML 1000 MG GT (08:37)
[2024-02-10] MEDS: guaiFENesin Liq 100 MG/5 ML LIQUID GT (17:22)
[2024-02-10] MEDS: ACETAMINOPHEN 325 MG TABLET 650 MG GT (17:22)
[2024-02-10] MEDS: LOSARTAN 25 MG TABLET GT (20:54)
[2024-02-11] VITALS (10 sets, daily range): BP systolic 94–111; BP diastolic 60–71; PULSE 62–92; RESP 22–32; TEMP 36.1–36.6; O2SAT 97–99
[2024-02-11] MEDS: IPRATROPIUM/ALBUTEROL 3 ML AMPUL.NEB INH ×4 (00:40→18:55)
[2024-02-11] MEDS: LEVOTHYROXINE 50 MCG TABLET GT (05:34)
[2024-02-11] MEDS: LACTULOSE 10 GM/15 ML SOLUTION GT ×3 (05:34→20:53)
[2024-02-11] MEDS: acetaZOLAMIDE 250 MG TABLET GT ×2 (08:37→20:51)
[2024-02-11] MEDS: FAMOTIDINE 20 MG TABLET GT (08:38)
[2024-02-11] MEDS: VALPROIC ACID 250 MG/5 ML 1000 MG GT (08:39)
[2024-02-11] MEDS: POTASSIUM CHLORIDE 20 MEQ TAB.ER.PRT GT ×2 (08:39→20:53)
[2024-02-11] MEDS: BUMETANIDE 1 MG TABLET GT ×2 (08:39→20:52)
[2024-02-11] MEDS: levETIRAcetam 750 MG TABLET GT ×2 (08:39→20:53)
[2024-02-11] MEDS: FERROUS SULFATE 220 MG/5 ML ELIXIR 330 MG GT (08:40)
[2024-02-11] MEDS: MULTIVITAMIN 1 TAB TABLET GT (08:40)
[2024-02-11] MEDS: CARVEDILOL 3.125 MG TABLET GT (08:40)
--- NOTE | 2024-02-11 12:30 | PD.SAPROG ---
Progress Note - SubAcute DIAGNOSIS (1) Chronic respiratory failure with hypoxia: Status: Chronic (2) Dependent on ventilator: Status: Chronic (3) Congestive cardiac failure: Status: Chronic (4) Epilepsy, unspecified, intractable, without status epilepticus: Status: Chronic (5) Anemia: Status: Chronic (6) Hypothyroidism, unspecified: Status: Chronic (7) Developmental disorder of scholastic skills, unspecified: Status: Chronic (8) Age-related osteoporosis without current pathological fracture: Status: Chronic (9) Gastrostomy status: Status: Chronic (10) Tracheostomy status: Status: Chronic SUBJECTIVE Fever:: unchanged (low grade) GI:: none Shortness of Breath:: none GI:: no complaints Pain:: none OBJECTIVE Most recent vital signs: Last Vital Signs Temp 97.4 F 02/12/24 17:16 Pulse 68 02/12/24 20:44 Resp 27 H 02/12/24 19:30 BP 98/59 L 02/12/24 20:44 Pulse Ox 97 02/12/24 19:30 O2 Del Method Mechanical Ventilation 02/12/24 17:16 FiO2 44 02/12/24 19:30 Neurological:: awake Speech:: nods head and appropriate (Sometimes) Answers questions:: sometimes Respiratory:: lungs clear Cardiovascular: RRR Abdomen: soft and nontender Decubitus:: none Tracheostomy:: to ventilator Feeding per:: G tube Complaints:: none ASSESSMENT & PLAN Assessment: Patient with cognitive function deficits. ventilator dependent. No distress. Stable condition. Diagnosis and treatment reviewed. Pt does not tolerate weaning from Ventilator. Family updated in IDT. Pt.'s father is very supportive. Transient increase in leak around gastrostomy site with coffee-ground liquid positive for occult blood. Symptomatic ineffective hence patient transferred to ER 09/15/2023 for evaluation and management. Displacement of G-tube into the pyloric bulb seemed to be causing outflow obstruction which on repositioning and semi-deflating the tube balloon did resolve and pt received back later that night in a stable condition with G I consult. now back to baseline stable status.Pt on mittens b/l for pulling on life sustaining tubings. Pt's father involved in pt care and kept informed. No new issues Plan: Current treatment reviewed and continued
--- NOTE | 2024-02-11 14:26 | PC.SS ---
Addendum entered by Dee Garcia 02/11/24 14:35: Room visit:Resident is laying in bed with head of the bed elevated with call light properly placed with no signs of distress. Resident is well groomed with no signs of distress. Resident will remain in current care as there are no changes in care or condition, resident remains on vent with trach in place and GT for medication and nutrition. Resident will continue to have all subacute care needs met by staff. Original Note: Room visit:Resident is laying in bed with head of the bed elevated with call light properly placed with no signs of distress. Resident is well groomed with no signs of distress. Resident mother and father are at bedside daily. Resident will remain in current care as there are no changes in care or condition, resident remains on vent with trach in place and GT for medication and nutrition. Resident will continue to have all subacute care needs met by staff.
[2024-02-11] MEDS: ACETAMINOPHEN 325 MG TABLET 650 MG GT (20:45)
[2024-02-12] VITALS (11 sets, daily range): BP systolic 98–121; BP diastolic 59–81; PULSE 68–95; RESP 17–31; TEMP 36.3–36.7; O2SAT 97–99
[2024-02-12] MEDS: IPRATROPIUM/ALBUTEROL 3 ML AMPUL.NEB INH ×4 (01:14→18:30)
[2024-02-12] MEDS: LACTULOSE 10 GM/15 ML SOLUTION GT ×3 (05:31→20:44)
[2024-02-12] MEDS: LEVOTHYROXINE 50 MCG TABLET GT (05:31)
[2024-02-12] MEDS: guaiFENesin Liq 100 MG/5 ML LIQUID GT (07:38)
[2024-02-12] MEDS: ACETAMINOPHEN 325 MG TABLET 650 MG GT ×2 (07:38→20:40)
[2024-02-12] MEDS: acetaZOLAMIDE 250 MG TABLET GT ×2 (08:42→20:41)
[2024-02-12] MEDS: CARVEDILOL 3.125 MG TABLET GT (08:42)
[2024-02-12] MEDS: FERROUS SULFATE 220 MG/5 ML ELIXIR 330 MG GT (08:43)
[2024-02-12] MEDS: BUMETANIDE 1 MG TABLET GT ×2 (08:43→20:42)
[2024-02-12] MEDS: FAMOTIDINE 20 MG TABLET GT (08:43)
[2024-02-12] MEDS: VALPROIC ACID 250 MG/5 ML 1000 MG GT (08:43)
[2024-02-12] MEDS: MULTIVITAMIN 1 TAB TABLET GT (08:43)
[2024-02-12] MEDS: POTASSIUM CHLORIDE 20 MEQ TAB.ER.PRT GT ×2 (08:43→20:44)
[2024-02-12] MEDS: levETIRAcetam 750 MG TABLET GT ×2 (08:43→20:42)
[2024-02-13] VITALS (12 sets, daily range): BP systolic 99–120; BP diastolic 57–81; PULSE 65–97; RESP 20–33; TEMP 36.3–36.8; O2SAT 98–100
[2024-02-13] MEDS: IPRATROPIUM/ALBUTEROL 3 ML AMPUL.NEB INH ×5 (00:51→23:30)
[2024-02-13] MEDS: LEVOTHYROXINE 50 MCG TABLET GT (05:30)
[2024-02-13] MEDS: LACTULOSE 10 GM/15 ML SOLUTION GT ×3 (05:30→22:00)
[2024-02-13] MEDS: CARVEDILOL 3.125 MG TABLET GT (08:54)
[2024-02-13] MEDS: acetaZOLAMIDE 250 MG TABLET GT ×2 (08:54→20:38)
[2024-02-13] MEDS: BUMETANIDE 1 MG TABLET GT ×2 (08:54→20:40)
[2024-02-13] MEDS: FAMOTIDINE 20 MG TABLET GT (08:55)
[2024-02-13] MEDS: FERROUS SULFATE 220 MG/5 ML ELIXIR 330 MG GT (08:55)
[2024-02-13] MEDS: MULTIVITAMIN 1 TAB TABLET GT (08:56)
[2024-02-13] MEDS: levETIRAcetam 750 MG TABLET GT ×2 (08:56→20:40)
[2024-02-13] MEDS: VALPROIC ACID 250 MG/5 ML 1000 MG GT (08:57)
[2024-02-13] MEDS: POTASSIUM CHLORIDE 20 MEQ TAB.ER.PRT GT ×2 (08:57→20:40)
[2024-02-13] MEDS: ACETAMINOPHEN 325 MG TABLET 650 MG GT ×2 (08:58→20:40)
[2024-02-14] VITALS (8 sets, daily range): BP systolic 90–117; BP diastolic 56–70; PULSE 56–89; RESP 20–30; TEMP 36.3–36.9; O2SAT 98–99
[2024-02-14] MEDS: LACTULOSE 10 GM/15 ML SOLUTION GT ×3 (05:40→21:03)
[2024-02-14] MEDS: LEVOTHYROXINE 50 MCG TABLET GT (05:40)
[2024-02-14] MEDS: IPRATROPIUM/ALBUTEROL 3 ML AMPUL.NEB INH ×3 (07:03→18:45)
[2024-02-14] MEDS: CARVEDILOL 3.125 MG TABLET GT (08:39)
[2024-02-14] MEDS: BUMETANIDE 1 MG TABLET GT ×2 (08:39→20:19)
[2024-02-14] MEDS: acetaZOLAMIDE 250 MG TABLET GT ×2 (08:39→20:15)
[2024-02-14] MEDS: levETIRAcetam 750 MG TABLET GT ×2 (08:40→20:19)
[2024-02-14] MEDS: FAMOTIDINE 20 MG TABLET GT (08:40)
[2024-02-14] MEDS: POTASSIUM CHLORIDE 20 MEQ TAB.ER.PRT GT ×2 (08:41→20:19)
[2024-02-14] MEDS: MULTIVITAMIN 1 TAB TABLET GT (08:41)
[2024-02-14] MEDS: FERROUS SULFATE 220 MG/5 ML ELIXIR 330 MG GT (08:41)
[2024-02-14] MEDS: VALPROIC ACID 250 MG/5 ML 1000 MG GT (08:42)
[2024-02-15] VITALS (9 sets, daily range): BP systolic 93–115; BP diastolic 62–68; PULSE 60–84; RESP 21–32; TEMP 36.1–36.7; O2SAT 97–100
[2024-02-15] MEDS: IPRATROPIUM/ALBUTEROL 3 ML AMPUL.NEB INH ×4 (00:12→19:33)
[2024-02-15] MEDS: LEVOTHYROXINE 50 MCG TABLET GT (05:03)
[2024-02-15] MEDS: LACTULOSE 10 GM/15 ML SOLUTION GT ×2 (05:03→13:14)
[2024-02-15] MEDS: FERROUS SULFATE 220 MG/5 ML ELIXIR 330 MG GT (08:11)
[2024-02-15] MEDS: acetaZOLAMIDE 250 MG TABLET GT ×2 (08:11→20:34)
[2024-02-15] MEDS: CARVEDILOL 3.125 MG TABLET GT (08:11)
[2024-02-15] MEDS: FAMOTIDINE 20 MG TABLET GT (08:11)
[2024-02-15] MEDS: BUMETANIDE 1 MG TABLET GT ×2 (08:11→20:34)
[2024-02-15] MEDS: levETIRAcetam 750 MG TABLET GT ×2 (08:12→20:34)
[2024-02-15] MEDS: POTASSIUM CHLORIDE 20 MEQ TAB.ER.PRT GT ×2 (08:12→20:35)
[2024-02-15] MEDS: MULTIVITAMIN 1 TAB TABLET GT (08:13)
[2024-02-15] MEDS: VALPROIC ACID 250 MG/5 ML 1000 MG GT (08:13)
[2024-02-15] MEDS: ACETAMINOPHEN 325 MG TABLET 650 MG GT (13:21)
--- NOTE | 2024-02-15 21:36 | PD.SAPROG ---
Progress Note - SubAcute DIAGNOSIS (1) Chronic respiratory failure with hypoxia: Status: Chronic (2) Dependent on ventilator: Status: Chronic (3) Congestive cardiac failure: Status: Chronic (4) Epilepsy, unspecified, intractable, without status epilepticus: Status: Chronic (5) Anemia: Status: Chronic (6) Hypothyroidism, unspecified: Status: Chronic (7) Developmental disorder of scholastic skills, unspecified: Status: Chronic (8) Age-related osteoporosis without current pathological fracture: Status: Chronic (9) Gastrostomy status: Status: Chronic (10) Tracheostomy status: Status: Chronic SUBJECTIVE Fever:: unchanged (low grade) GI:: none Shortness of Breath:: none GI:: no complaints Pain:: none OBJECTIVE Most recent vital signs: Last Vital Signs Temp 97.9 F 02/15/24 16:49 Pulse 79 02/15/24 20:34 Resp 28 H 02/15/24 19:33 BP 93/65 02/15/24 20:34 Pulse Ox 99 02/15/24 19:33 O2 Del Method Mechanical Ventilation 02/15/24 06:00 FiO2 45 02/15/24 19:33 Neurological:: awake Speech:: nods head and appropriate (Sometimes) Answers questions:: sometimes Respiratory:: lungs clear Cardiovascular: RRR Abdomen: soft and nontender Decubitus:: none Tracheostomy:: to ventilator Feeding per:: G tube Complaints:: none ASSESSMENT & PLAN Assessment: Patient with cognitive function deficits. ventilator dependent. No distress. Stable condition. Diagnosis and treatment reviewed. Pt does not tolerate weaning from Ventilator. Family updated in IDT. Pt.'s father is very supportive. Transient increase in leak around gastrostomy site with coffee-ground liquid positive for occult blood. Symptomatic ineffective hence patient transferred to ER 09/15/2023 for evaluation and management. Displacement of G-tube into the pyloric bulb seemed to be causing outflow obstruction which on repositioning and semi-deflating the tube balloon did resolve and pt received back later that night in a stable condition with G I consult. now back to baseline stable status.Pt on mittens b/l for pulling on life sustaining tubings. Pt's father involved in pt care and kept informed. No new issues Plan: Current treatment reviewed and continued
[2024-02-16] VITALS (10 sets, daily range): BP systolic 98–119; BP diastolic 61–75; PULSE 73–100; RESP 21–33; TEMP 31.6–36.6; O2SAT 98–100
[2024-02-16] MEDS: IPRATROPIUM/ALBUTEROL 3 ML AMPUL.NEB INH ×4 (01:16→19:13)
[2024-02-16] MEDS: LEVOTHYROXINE 50 MCG TABLET GT (05:16)
[2024-02-16] MEDS: LACTULOSE 10 GM/15 ML SOLUTION GT ×3 (05:16→21:05)
[2024-02-16] MEDS: acetaZOLAMIDE 250 MG TABLET GT ×2 (08:56→21:03)
[2024-02-16] MEDS: FERROUS SULFATE 220 MG/5 ML ELIXIR 330 MG GT (08:57)
[2024-02-16] MEDS: FAMOTIDINE 20 MG TABLET GT (08:57)
[2024-02-16] MEDS: levETIRAcetam 750 MG TABLET GT ×2 (08:57→21:04)
[2024-02-16] MEDS: CARVEDILOL 3.125 MG TABLET GT (08:57)
[2024-02-16] MEDS: BUMETANIDE 1 MG TABLET GT ×2 (08:57→21:03)
[2024-02-16] MEDS: MULTIVITAMIN 1 TAB TABLET GT (08:58)
[2024-02-16] MEDS: POTASSIUM CHLORIDE 20 MEQ TAB.ER.PRT GT ×2 (08:58→21:04)
[2024-02-16] MEDS: VALPROIC ACID 250 MG/5 ML 1000 MG GT (08:58)
[2024-02-16] MEDS: ACETAMINOPHEN 325 MG TABLET 650 MG GT (20:45)
[2024-02-17] VITALS (18 sets, daily range): BP systolic 92–130; BP diastolic 60–78; PULSE 79–89; RESP 20–32; TEMP 36.2–36.8; O2SAT 98–100
[2024-02-17] MEDS: IPRATROPIUM/ALBUTEROL 3 ML AMPUL.NEB INH ×4 (01:15→18:48)
[2024-02-17] MEDS: LORazepam 2 MG/ML VIAL IM (01:20)
--- NOTE | 2024-02-17 01:21 | PC.NURSE ---
Was called into room by staff who saw resident having a seizure, mild shaking for approximately 10 seconds. Ativan 2mg administered IM to left deltoid, vitals WNL, Neuro checks initiated, no other seizures noted at this time. Bed is in lowest position, call light is within reach, resident is asleep at this time.
[2024-02-17] MEDS: LEVOTHYROXINE 50 MCG TABLET GT (05:46)
[2024-02-17] MEDS: LACTULOSE 10 GM/15 ML SOLUTION GT ×3 (05:46→20:53)
[2024-02-17] MEDS: BUMETANIDE 1 MG TABLET GT ×2 (08:46→20:52)
[2024-02-17] MEDS: acetaZOLAMIDE 250 MG TABLET GT ×2 (08:46→20:52)
[2024-02-17] MEDS: FERROUS SULFATE 220 MG/5 ML ELIXIR 330 MG GT (08:47)
[2024-02-17] MEDS: FAMOTIDINE 20 MG TABLET GT (08:47)
[2024-02-17] MEDS: levETIRAcetam 750 MG TABLET GT ×2 (08:48→20:52)
[2024-02-17] MEDS: POTASSIUM CHLORIDE 20 MEQ TAB.ER.PRT GT ×2 (08:49→20:53)
[2024-02-17] MEDS: VALPROIC ACID 250 MG/5 ML 1000 MG GT (08:49)
[2024-02-17] MEDS: MULTIVITAMIN 1 TAB TABLET GT (08:49)
--- NOTE | 2024-02-17 12:15 | PC.SS ---
Addendum entered by Dee Garcia 02/17/24 12:33: Room visit: Resident is laying in bed with head of the bed elevated with call light properly placed with no signs of distress. Resident has no changes in care or condition. Resident remains on blow by with trach in place and GT for medication and nutrition. Resident will continue to have all subacute care needs met by staff. Resident remains conserved by his father Jeremi Javier and he continues to be a [facility] client. SSD will continue to make daily room visits and monitor for changes in mood and behavior. Original Note: Room visit: Resident is laying in bed with head of the bed elevated with call light properly placed with no signs of distress. Resident has no changes in care or condition. Resident remains on blow by with trach in place and GT for medication and nutrition. Resident will continue to have all subacute care needs met by staff. Resident remains conserved by his father Jeremi Javier and he continues to be a [facility] client. SSD will continue to make daily room visits and monitor for changes in mood and behavior.
[2024-02-17] MEDS: MAGNESIUM HYDROXIDE 30 ML ORAL SUSP ML GT (21:15)
[2024-02-18] VITALS (9 sets, daily range): BP systolic 99–118; BP diastolic 60–73; PULSE 69–92; RESP 20–27; TEMP 36.4–36.6; O2SAT 98–100
[2024-02-18] MEDS: IPRATROPIUM/ALBUTEROL 3 ML AMPUL.NEB INH ×4 (00:19→18:54)
[2024-02-18] MEDS: LEVOTHYROXINE 50 MCG TABLET GT (05:40)
[2024-02-18] MEDS: LACTULOSE 10 GM/15 ML SOLUTION GT ×3 (05:40→22:04)
[2024-02-18] MEDS: acetaZOLAMIDE 250 MG TABLET GT ×2 (08:24→20:17)
[2024-02-18] MEDS: BUMETANIDE 1 MG TABLET GT ×2 (08:25→20:18)
[2024-02-18] MEDS: FAMOTIDINE 20 MG TABLET GT (08:25)
[2024-02-18] MEDS: MULTIVITAMIN 1 TAB TABLET GT (08:26)
[2024-02-18] MEDS: POTASSIUM CHLORIDE 20 MEQ TAB.ER.PRT GT ×2 (08:26→20:19)
[2024-02-18] MEDS: VALPROIC ACID 250 MG/5 ML 1000 MG GT (08:26)
[2024-02-18] MEDS: FERROUS SULFATE 220 MG/5 ML ELIXIR 330 MG GT (08:26)
[2024-02-18] MEDS: levETIRAcetam 750 MG TABLET GT ×2 (08:26→20:18)
[2024-02-18] MEDS: ACETAMINOPHEN 325 MG TABLET 650 MG GT (08:46)
[2024-02-18] MEDS: guaiFENesin Liq 100 MG/5 ML LIQUID GT (08:46)
[2024-02-18] MEDS: LOSARTAN 25 MG TABLET GT (20:18)
[2024-02-19] VITALS (10 sets, daily range): BP systolic 90–111; BP diastolic 58–72; PULSE 74–85; RESP 20–32; TEMP 36.2–36.3; O2SAT 97–100
[2024-02-19] MEDS: IPRATROPIUM/ALBUTEROL 3 ML AMPUL.NEB INH ×4 (01:14→18:40)
[2024-02-19] MEDS: LEVOTHYROXINE 50 MCG TABLET GT (05:13)
[2024-02-19] MEDS: BUMETANIDE 1 MG TABLET GT ×2 (08:47→20:11)
[2024-02-19] MEDS: acetaZOLAMIDE 250 MG TABLET GT ×2 (08:47→20:09)
[2024-02-19] MEDS: FAMOTIDINE 20 MG TABLET GT (08:47)
[2024-02-19] MEDS: CARVEDILOL 3.125 MG TABLET GT (08:47)
[2024-02-19] MEDS: FERROUS SULFATE 220 MG/5 ML ELIXIR 330 MG GT (08:47)
[2024-02-19] MEDS: VALPROIC ACID 250 MG/5 ML 1000 MG GT (08:48)
[2024-02-19] MEDS: levETIRAcetam 750 MG TABLET GT ×2 (08:48→20:11)
[2024-02-19] MEDS: POTASSIUM CHLORIDE 20 MEQ TAB.ER.PRT GT ×2 (08:48→20:11)
[2024-02-19] MEDS: MULTIVITAMIN 1 TAB TABLET GT (08:48)
[2024-02-19] MEDS: ACETAMINOPHEN 325 MG TABLET 650 MG GT (08:49)
[2024-02-19] MEDS: guaiFENesin Liq 100 MG/5 ML LIQUID GT (08:49)
--- NOTE | 2024-02-19 19:39 | PD.SAPROG ---
Progress Note - SubAcute DIAGNOSIS (1) Chronic respiratory failure with hypoxia: Status: Chronic (2) Dependent on ventilator: Status: Chronic (3) Congestive cardiac failure: Status: Chronic (4) Epilepsy, unspecified, intractable, without status epilepticus: Status: Chronic (5) Anemia: Status: Chronic (6) Hypothyroidism, unspecified: Status: Chronic (7) Developmental disorder of scholastic skills, unspecified: Status: Chronic (8) Age-related osteoporosis without current pathological fracture: Status: Chronic (9) Gastrostomy status: Status: Chronic (10) Tracheostomy status: Status: Chronic SUBJECTIVE Fever:: unchanged (low grade) GI:: none Shortness of Breath:: none GI:: no complaints Pain:: none OBJECTIVE Most recent vital signs: Last Vital Signs Temp 97.1 F 02/19/24 16:50 Pulse 74 02/19/24 16:50 Resp 21 H 02/19/24 16:50 BP 98/68 02/19/24 16:50 Pulse Ox 97 02/19/24 16:50 O2 Del Method Mechanical Ventilation 02/19/24 16:50 FiO2 45 02/19/24 16:50 Neurological:: awake Speech:: nods head and appropriate (Sometimes) Answers questions:: sometimes Respiratory:: lungs clear Cardiovascular: RRR Abdomen: soft and nontender Decubitus:: none Tracheostomy:: to ventilator Feeding per:: G tube Complaints:: none ASSESSMENT & PLAN Assessment: Patient with cognitive function deficits. ventilator dependent. No distress. Stable condition. Diagnosis and treatment reviewed. Pt does not tolerate weaning from Ventilator. Family updated in IDT. Pt.'s father is very supportive. Transient increase in leak around gastrostomy site with coffee-ground liquid positive for occult blood. Symptomatic ineffective hence patient transferred to ER 09/15/2023 for evaluation and management. Displacement of G-tube into the pyloric bulb seemed to be causing outflow obstruction which on repositioning and semi-deflating the tube balloon did resolve and pt received back later that night in a stable condition with G I consult. now back to baseline stable status.Pt on mittens b/l for pulling on life sustaining tubings. Pt's father involved in pt care and kept informed. No new issues Plan: Current treatment reviewed and continued
[2024-02-19] MEDS: LACTULOSE 10 GM/15 ML SOLUTION GT (21:09)
[2024-02-20] VITALS (11 sets, daily range): BP systolic 98–115; BP diastolic 62–92; PULSE 75–99; RESP 20–33; TEMP 36.2–37.2; O2SAT 96–100
[2024-02-20] MEDS: IPRATROPIUM/ALBUTEROL 3 ML AMPUL.NEB INH ×4 (00:10→19:40)
[2024-02-20] MEDS: LACTULOSE 10 GM/15 ML SOLUTION GT ×2 (05:30→13:19)
[2024-02-20] MEDS: LEVOTHYROXINE 50 MCG TABLET GT (05:30)
[2024-02-20] MEDS: acetaZOLAMIDE 250 MG TABLET GT ×2 (08:37→20:34)
[2024-02-20] MEDS: CARVEDILOL 3.125 MG TABLET GT (08:38)
[2024-02-20] MEDS: BUMETANIDE 1 MG TABLET GT ×2 (08:38→20:34)
[2024-02-20] MEDS: levETIRAcetam 750 MG TABLET GT ×2 (08:38→20:35)
[2024-02-20] MEDS: FERROUS SULFATE 220 MG/5 ML ELIXIR 330 MG GT (08:38)
[2024-02-20] MEDS: FAMOTIDINE 20 MG TABLET GT (08:38)
[2024-02-20] MEDS: POTASSIUM CHLORIDE 20 MEQ TAB.ER.PRT GT ×2 (08:39→20:35)
[2024-02-20] MEDS: VALPROIC ACID 250 MG/5 ML 1000 MG GT (08:39)
[2024-02-20] MEDS: MULTIVITAMIN 1 TAB TABLET GT (08:39)
[2024-02-21] VITALS (10 sets, daily range): BP systolic 97–132; BP diastolic 60–84; PULSE 55–92; RESP 20–30; TEMP 36.2–36.6; O2SAT 98–100
[2024-02-21] MEDS: IPRATROPIUM/ALBUTEROL 3 ML AMPUL.NEB INH ×4 (01:08→18:00)
[2024-02-21] MEDS: LEVOTHYROXINE 50 MCG TABLET GT (05:20)
[2024-02-21] MEDS: LACTULOSE 10 GM/15 ML SOLUTION GT ×3 (05:20→21:02)
[2024-02-21] MEDS: acetaZOLAMIDE 250 MG TABLET GT ×2 (08:13→20:38)
[2024-02-21] MEDS: BUMETANIDE 1 MG TABLET GT ×2 (08:13→20:39)
[2024-02-21] MEDS: VALPROIC ACID 250 MG/5 ML 1000 MG GT (08:14)
[2024-02-21] MEDS: MULTIVITAMIN 1 TAB TABLET GT (08:14)
[2024-02-21] MEDS: levETIRAcetam 750 MG TABLET GT ×2 (08:14→20:39)
[2024-02-21] MEDS: POTASSIUM CHLORIDE 20 MEQ TAB.ER.PRT GT ×2 (08:14→20:39)
[2024-02-21] MEDS: FERROUS SULFATE 220 MG/5 ML ELIXIR 330 MG GT (08:14)
[2024-02-21] MEDS: FAMOTIDINE 20 MG TABLET GT (08:14)
--- NOTE | 2024-02-21 16:09 | PC.SS ---
Resident seen by production supv/Dr. Rene for routine nail trim. Resident tolerated treatment well with no new orders. Resident to continue current care.
[2024-02-22] VITALS (11 sets, daily range): BP systolic 94–108; BP diastolic 57–70; PULSE 59–96; RESP 22–31; TEMP 36.3–36.4; O2SAT 98–100
[2024-02-22] MEDS: IPRATROPIUM/ALBUTEROL 3 ML AMPUL.NEB INH ×4 (01:01→18:00)
[2024-02-22] MEDS: LACTULOSE 10 GM/15 ML SOLUTION GT ×2 (05:14→13:17)
[2024-02-22] MEDS: LEVOTHYROXINE 50 MCG TABLET GT (05:14)
[2024-02-22] MEDS: levETIRAcetam 750 MG TABLET GT ×2 (08:45→20:47)
[2024-02-22] MEDS: BUMETANIDE 1 MG TABLET GT ×2 (08:45→20:46)
[2024-02-22] MEDS: MULTIVITAMIN 1 TAB TABLET GT (08:45)
[2024-02-22] MEDS: FERROUS SULFATE 220 MG/5 ML ELIXIR 330 MG GT (08:45)
[2024-02-22] MEDS: FAMOTIDINE 20 MG TABLET GT (08:45)
[2024-02-22] MEDS: acetaZOLAMIDE 250 MG TABLET GT ×2 (08:45→20:46)
[2024-02-22] MEDS: POTASSIUM CHLORIDE 20 MEQ TAB.ER.PRT GT ×2 (08:46→20:48)
[2024-02-22] MEDS: VALPROIC ACID 250 MG/5 ML 1000 MG GT (08:46)
[2024-02-23] VITALS (11 sets, daily range): BP systolic 99–119; BP diastolic 56–68; PULSE 60–92; RESP 20–31; TEMP 36.1–36.2; O2SAT 95–100
[2024-02-23] MEDS: IPRATROPIUM/ALBUTEROL 3 ML AMPUL.NEB INH ×4 (00:20→18:15)
[2024-02-23] MEDS: LACTULOSE 10 GM/15 ML SOLUTION GT (05:11)
[2024-02-23] MEDS: LEVOTHYROXINE 50 MCG TABLET GT (05:11)
[2024-02-23] MEDS: acetaZOLAMIDE 250 MG TABLET GT ×2 (08:57→21:14)
[2024-02-23] MEDS: BUMETANIDE 1 MG TABLET GT ×2 (08:57→21:14)
[2024-02-23] MEDS: levETIRAcetam 750 MG TABLET GT ×2 (08:58→21:15)
[2024-02-23] MEDS: FAMOTIDINE 20 MG TABLET GT (08:58)
[2024-02-23] MEDS: MULTIVITAMIN 1 TAB TABLET GT (08:58)
[2024-02-23] MEDS: FERROUS SULFATE 220 MG/5 ML ELIXIR 330 MG GT (08:58)
[2024-02-23] MEDS: POTASSIUM CHLORIDE 20 MEQ TAB.ER.PRT GT ×2 (09:00→21:15)
[2024-02-23] MEDS: VALPROIC ACID 250 MG/5 ML 1000 MG GT (09:00)
--- NOTE | 2024-02-23 12:30 | PD.SAPROG ---
Progress Note - SubAcute DIAGNOSIS (1) Chronic respiratory failure with hypoxia: Status: Chronic (2) Dependent on ventilator: Status: Chronic (3) Congestive cardiac failure: Status: Chronic (4) Epilepsy, unspecified, intractable, without status epilepticus: Status: Chronic (5) Anemia: Status: Chronic (6) Hypothyroidism, unspecified: Status: Chronic (7) Developmental disorder of scholastic skills, unspecified: Status: Chronic (8) Age-related osteoporosis without current pathological fracture: Status: Chronic (9) Gastrostomy status: Status: Chronic (10) Tracheostomy status: Status: Chronic SUBJECTIVE Fever:: unchanged (low grade) GI:: none Shortness of Breath:: none GI:: no complaints Pain:: none OBJECTIVE Most recent vital signs: Last Vital Signs Temp 97.9 F 02/24/24 16:00 Pulse 72 02/24/24 16:00 Resp 22 H 02/24/24 16:00 BP 106/64 02/24/24 16:00 Pulse Ox 98 02/24/24 16:00 O2 Del Method Mechanical Ventilation 02/24/24 16:00 FiO2 46 02/24/24 16:00 Neurological:: awake Speech:: nods head and appropriate (Sometimes) Answers questions:: sometimes Respiratory:: lungs clear Cardiovascular: RRR Abdomen: soft and nontender Decubitus:: none Tracheostomy:: to ventilator Feeding per:: G tube Complaints:: none ASSESSMENT & PLAN Assessment: Patient with cognitive function deficits. ventilator dependent. No distress. Stable condition. Diagnosis and treatment reviewed. Pt does not tolerate weaning from Ventilator. Family updated in IDT. Pt.'s father is very supportive. Transient increase in leak around gastrostomy site with coffee-ground liquid positive for occult blood. Symptomatic ineffective hence patient transferred to ER 09/15/2023 for evaluation and management. Displacement of G-tube into the pyloric bulb seemed to be causing outflow obstruction which on repositioning and semi-deflating the tube balloon did resolve and pt received back later that night in a stable condition with G I consult. now back to baseline stable status.Pt on mittens b/l for pulling on life sustaining tubings. Pt's father involved in pt care and kept informed. No new issues Plan: Current treatment reviewed and continued
[2024-02-24] VITALS (11 sets, daily range): BP systolic 105–129; BP diastolic 55–75; PULSE 72–90; RESP 22–30; TEMP 36.6–36.7; O2SAT 97–99
[2024-02-24] MEDS: IPRATROPIUM/ALBUTEROL 3 ML AMPUL.NEB INH ×4 (00:05→19:06)
[2024-02-24] MEDS: LEVOTHYROXINE 50 MCG TABLET GT (05:09)
[2024-02-24] MEDS: LACTULOSE 10 GM/15 ML SOLUTION GT ×3 (05:09→20:51)
[2024-02-24] MEDS: acetaZOLAMIDE 250 MG TABLET GT ×2 (08:41→20:49)
[2024-02-24] MEDS: FAMOTIDINE 20 MG TABLET GT (08:42)
[2024-02-24] MEDS: BUMETANIDE 1 MG TABLET GT ×2 (08:42→20:49)
[2024-02-24] MEDS: VALPROIC ACID 250 MG/5 ML 1000 MG GT (08:43)
[2024-02-24] MEDS: MULTIVITAMIN 1 TAB TABLET GT (08:43)
[2024-02-24] MEDS: POTASSIUM CHLORIDE 20 MEQ TAB.ER.PRT GT ×2 (08:43→20:51)
[2024-02-24] MEDS: levETIRAcetam 750 MG TABLET GT ×2 (08:43→20:50)
[2024-02-24] MEDS: FERROUS SULFATE 220 MG/5 ML ELIXIR 330 MG GT (08:43)
[2024-02-25] VITALS (10 sets, daily range): BP systolic 92–102; BP diastolic 60–68; PULSE 72–95; RESP 20–30; TEMP 36.2–36.6; O2SAT 97–100
[2024-02-25] MEDS: IPRATROPIUM/ALBUTEROL 3 ML AMPUL.NEB INH ×4 (00:34→16:15)
[2024-02-25] MEDS: LEVOTHYROXINE 50 MCG TABLET GT (06:02)
[2024-02-25] MEDS: LACTULOSE 10 GM/15 ML SOLUTION GT ×3 (06:02→21:14)
[2024-02-25] MEDS: acetaZOLAMIDE 250 MG TABLET GT ×2 (08:29→20:43)
[2024-02-25] MEDS: BUMETANIDE 1 MG TABLET GT ×2 (08:30→20:43)
[2024-02-25] MEDS: levETIRAcetam 750 MG TABLET GT ×2 (08:31→20:43)
[2024-02-25] MEDS: FERROUS SULFATE 220 MG/5 ML ELIXIR 330 MG GT (08:31)
[2024-02-25] MEDS: MULTIVITAMIN 1 TAB TABLET GT (08:31)
[2024-02-25] MEDS: FAMOTIDINE 20 MG TABLET GT (08:31)
[2024-02-25] MEDS: VALPROIC ACID 250 MG/5 ML 1000 MG GT (08:31)
[2024-02-25] MEDS: POTASSIUM CHLORIDE 20 MEQ TAB.ER.PRT GT ×2 (08:31→20:44)
--- NOTE | 2024-02-25 20:51 | PD.SAPROG ---
Progress Note - SubAcute DIAGNOSIS (1) Chronic respiratory failure with hypoxia: Status: Chronic (2) Dependent on ventilator: Status: Chronic (3) Congestive cardiac failure: Status: Chronic (4) Epilepsy, unspecified, intractable, without status epilepticus: Status: Chronic (5) Anemia: Status: Chronic (6) Hypothyroidism, unspecified: Status: Chronic (7) Developmental disorder of scholastic skills, unspecified: Status: Chronic (8) Age-related osteoporosis without current pathological fracture: Status: Chronic (9) Gastrostomy status: Status: Chronic (10) Tracheostomy status: Status: Chronic SUBJECTIVE Fever:: unchanged (low grade) GI:: none Shortness of Breath:: none GI:: no complaints Pain:: none OBJECTIVE Most recent vital signs: Last Vital Signs Temp 97.9 F 02/25/24 16:46 Pulse 74 02/25/24 16:46 Resp 25 H 02/25/24 16:46 BP 98/65 02/25/24 16:46 Pulse Ox 97 02/25/24 16:46 O2 Del Method Mechanical Ventilation 02/25/24 16:46 FiO2 46 02/25/24 16:46 Neurological:: awake Speech:: nods head and appropriate (Sometimes) Answers questions:: sometimes Respiratory:: lungs clear Cardiovascular: RRR Abdomen: soft and nontender Decubitus:: none Tracheostomy:: to ventilator Feeding per:: G tube Complaints:: none ASSESSMENT & PLAN Assessment: Patient with cognitive function deficits. ventilator dependent. No distress. Stable condition. Diagnosis and treatment reviewed. Pt does not tolerate weaning from Ventilator. Family updated in IDT. Pt.'s father is very supportive. Transient increase in leak around gastrostomy site with coffee-ground liquid positive for occult blood. Symptomatic ineffective hence patient transferred to ER 09/15/2023 for evaluation and management. Displacement of G-tube into the pyloric bulb seemed to be causing outflow obstruction which on repositioning and semi-deflating the tube balloon did resolve and pt received back later that night in a stable condition with G I consult. now back to baseline stable status.Pt on mittens b/l for pulling on life sustaining tubings. Pt's father involved in pt care and kept informed. No new issues Plan: Current treatment reviewed and continued
[2024-02-26] VITALS (15 sets, daily range): BP systolic 83–111; BP diastolic 52–65; PULSE 64–131; RESP 20–37; TEMP 36.3–38.9; O2SAT 94–100
[2024-02-26] MEDS: IPRATROPIUM/ALBUTEROL 3 ML AMPUL.NEB INH ×4 (00:38→18:40)
[2024-02-26] MEDS: LEVOTHYROXINE 50 MCG TABLET GT (05:13)
[2024-02-26] MEDS: LACTULOSE 10 GM/15 ML SOLUTION GT ×3 (05:13→21:01)
[2024-02-26] MEDS: guaiFENesin Liq 100 MG/5 ML LIQUID GT ×2 (08:06→17:56)
[2024-02-26] MEDS: FERROUS SULFATE 220 MG/5 ML ELIXIR 330 MG GT (09:52)
[2024-02-26] MEDS: levETIRAcetam 750 MG TABLET GT ×2 (09:52→21:00)
[2024-02-26] MEDS: FAMOTIDINE 20 MG TABLET GT (09:52)
[2024-02-26] MEDS: MULTIVITAMIN 1 TAB TABLET GT (09:52)
[2024-02-26] MEDS: acetaZOLAMIDE 250 MG TABLET GT ×2 (09:52→20:59)
[2024-02-26] MEDS: BUMETANIDE 1 MG TABLET GT ×2 (09:52→20:59)
[2024-02-26] MEDS: VALPROIC ACID 250 MG/5 ML 1000 MG GT (09:53)
[2024-02-26] MEDS: POTASSIUM CHLORIDE 20 MEQ TAB.ER.PRT GT ×2 (09:53→21:00)
[2024-02-26] MEDS: ACETAMINOPHEN 325 MG TABLET 650 MG GT ×2 (11:44→17:56)
--- NOTE | 2024-02-26 18:43 | PC.NURSE ---
At 1755 noticed ventilator alarming indicating ^ respiratory rate of 35. Med nurse informed and Tylenol 325 mg x2 tablets & Guiafenesin 15 ml PRN given via g-tube. At 1830 when nurse went to reasses patient noticed RR ^ of 45 appeared flushed and warm to the touch. Vital signs obtained as follow: 102.4 Rectally HR of 132, 107/66 & O2 saturation 97% on FIO2 45%. Cooling measures applied and charge nurse informed. Will continue to monitor.
[2024-02-26 21:41] LABS: Collection Type, Urine Catheter; Squamous Epithelial Cell,Urine 0 /hpf (0-5)
[2024-02-26] MEDS: ACETAMINOPHEN 325 MG TABLET 350 MG GT (21:45)
[2024-02-26 21:53] LABS: Bilirubin,Urine Negative (Negative); Blood,Urine Negative (Negative); Clarity,Urine Clear (Clear/Hazy); Color,Urine Yellow (Lt Yel-Yel); Glucose, Urine Negative (Negative); Ketones,Urine Negative (Negative); Leukocyte Esterase,Urine Positive (Negative); Nitrite,Urine Negative (Negative); Protein,Urine Negative (Neg - Trace); RBC,Urine 1 /hpf (0-3); Urobilinogen,Urine Negative mg/dL (0.0-1.0); WBC,Urine 10 /hpf (0-5)
[2024-02-26 22:14] LABS: COVID-19 Antigen (In-House) Negative (Negative); Influenza A Ag Negative; Influenza B Ag Negative
[2024-02-26 22:16] LABS: Basophils % (Auto) 0 % (0-2.5); Eosinophils % (Auto) 0 % (0-10); Hematocrit 38.1 % (41.0-53.0); Hemoglobin 12.2 g/dL (13.5-16.0); Immature Granulocytes % (Auto) 1 % (0-0); Immature Granulocytes Auto 0.22 Thou/mm3 (0.00-0.00); Lymphocytes # (Auto) 0.4 Thou/mm3 (1.0-4.8); Lymphocytes % (Auto) 1 % (10-50); Mean Corpuscular Hemoglobin 31.9 pg (25.0-35.0); Mean Corpuscular Volume 100 fL (80-100); Monocytes # (Auto) 2.9 Thou/mm3 (0.0-0.8); Monocytes % (Auto) 9 % (0-12); Neutrophils # (Auto) 28.7 Thou/mm3 (1.8-7.7); Neutrophils % (Auto) 89 % (37-80); Nucleated Red Blood Cell % 0 /100 WBC (0); Platelet Count 180 Thou/mm3 (140-440); RDW Standard Deviation 47.8 fL (35.1-43.9); Red Blood Count 3.82 Miln/mm3 (4.50-5.90); White Blood Count 32.3 Thou/mm3 (3.8-10.6)
[2024-02-26 22:44] LABS: Procalcitonin 0.64 ng/ml (0.0-0.49); Thyroid Stimulating Hormone 1.08 uIU/mL (0.55-4.78)
--- NOTE | 2024-02-26 22:56 | PC.NURSE ---
Received in report that resident was running elevated temp of 102.4 rectally. Rechecked temp during rounds: 102.7 rectally, temp protocol initiated and Tylenol given at 2145. Latest vitals: BP 83/52, HR 118, RR 32, T 102, O2 97%. Dr Lackey was notified with new order to give 500ml water bolus through GT and send to ER. Report given to Marylin in ER, resident taken to room 1 via bed. Called and left a message for father of resident to return call when available.
--- NOTE | 2024-02-26 23:06 | PC.RT ---
At approx 2230 pt was transferred to ED on ventilator by MANAGER UNIX, ROLLER STAINER, and RT. Report given to ED RT. No complications during transfer. Upon arrival to to ED 1 spo2 95% on 45% FIO2
--- NOTE | 2024-02-27 05:22 | PC.NURSE ---
Resident's father called back at 0400, update him regarding resident being sent to ER, all questions answered, will update if resident is admitted to acute care.
--- NOTE | 2024-02-27 13:40 | PC.NURSE ---
Updated father that resident is still in ER awating admission to hospital for further treatment
--- NOTE | 2024-02-27 17:34 | PC.NURSE ---
Updated pt father that he is in ER awaiting admission to the hospital for further treatment
--- NOTE | 2024-02-29 08:55 | PC.SS ---
This SSD spoke with resident RP/conservator Jeremi Javier regarding resident transfer to ER on 02/25 and his current bed hold. Jeremi stated he was informed of the transfer and the bed hold. This SSD informed him he would be receiving the transfer notice and bed hold notice in the mail, Jeremi agreed with no questions or concerns.
--- NOTE | 2024-02-29 11:56 | PC.NURSE ---
Resident came back to [facility], V/S was stable with a new order of antibiotic IV doxycycline hyclate ( Doxy-100) x 7 days to complete 10 days, and amoxicillin-potclavulanate BID for 10 days for MD ELISABET. notified OK with the new order, order noted and carried out, family was notified, we will continue to monitor.
[2024-02-29 12:00] VITALS: BP 124/60; PULSE 73; RESP 20; TEMP 36.6; O2SAT 97
[2024-02-29 12:55] VITALS: PULSE 75; PULSE 95; RESP 25; O2SAT 100; O2SAT 98
[2024-02-29] MEDS: IPRATROPIUM/ALBUTEROL 3 ML AMPUL.NEB INH ×2 (12:55→19:29)
--- NOTE | 2024-02-29 12:59 | PC.SS ---
This SSD received call from CINDI in acute care to confirm contact information for resident MELO/Jeremi Javier. She stated resident would be transferred back to subacute from acute care and she would be calling Jeremi to provide him with an update.
[2024-02-29] MEDS: LACTULOSE 10 GM/15 ML SOLUTION GT (13:32)
[2024-02-29 17:26] VITALS: BP 126/67; PULSE 78; RESP 23; TEMP 36.2
[2024-02-29 19:29] VITALS: PULSE 77; PULSE 80; RESP 20; O2SAT 99
[2024-02-29 20:56] VITALS: BP 107/57; PULSE 90
[2024-02-29] MEDS: BUMETANIDE 1 MG TABLET GT (20:56)
[2024-02-29] MEDS: acetaZOLAMIDE 250 MG TABLET GT (20:56)
[2024-02-29] MEDS: POTASSIUM CHLORIDE 20 MEQ TAB.ER.PRT GT (20:56)
[2024-02-29] MEDS: levETIRAcetam 750 MG TABLET GT (20:56)
[2024-02-29] MEDS: NON-FORMULARY *SEE COMMENTS* 1 EA EA 100 EA IV (21:00)
[2024-02-29] MEDS: NON-FORMULARY *SEE COMMENTS* 1 EA EA 7.3 EA GT (21:41)
--- NOTE | 2024-02-29 21:46 | PC.NURSE ---
Resident on Doxycycline IV and Augmentin via GTube, 24G placed to left foot x2 attempts, good blood returned, no s/s of infiltration, no s/s of side effects or AR from doxycyline IV, resident is afebrile, fluids given via gtube by nurse, resident in room resting with eyes open, HOB elevated, no s/s of distress at this time.
[2024-03-01] VITALS (12 sets, daily range): BP systolic 113–128; BP diastolic 71–83; PULSE 72–93; RESP 20–30; TEMP 36.2–36.6; O2SAT 97–99
[2024-03-01] MEDS: IPRATROPIUM/ALBUTEROL 3 ML AMPUL.NEB INH ×4 (00:16→18:21)
[2024-03-01] MEDS: LACTULOSE 10 GM/15 ML SOLUTION GT ×2 (05:17→20:45)
[2024-03-01] MEDS: LEVOTHYROXINE 50 MCG TABLET GT (05:17)
[2024-03-01] MEDS: NON-FORMULARY *SEE COMMENTS* 1 EA EA 100 EA IV ×2 (08:52→21:17)
--- NOTE | 2024-03-01 08:53 | PC.NURSE ---
Infusing ABT therapy for resident. No A/R noted from previous antibiotic infusions. 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 Will continbue to monitor.
[2024-03-01] MEDS: acetaZOLAMIDE 250 MG TABLET GT ×2 (09:48→20:44)
[2024-03-01] MEDS: BUMETANIDE 1 MG TABLET GT ×2 (09:48→20:44)
[2024-03-01] MEDS: FERROUS SULFATE 220 MG/5 ML ELIXIR 330 MG GT (09:49)
[2024-03-01] MEDS: POTASSIUM CHLORIDE 20 MEQ TAB.ER.PRT GT ×2 (09:49→20:45)
[2024-03-01] MEDS: FAMOTIDINE 20 MG TABLET GT (09:49)
[2024-03-01] MEDS: MULTIVITAMIN 1 TAB TABLET GT (09:49)
[2024-03-01] MEDS: VALPROIC ACID 250 MG/5 ML 1000 MG GT (09:49)
[2024-03-01] MEDS: levETIRAcetam 750 MG TABLET GT ×3 (09:49→20:46)
[2024-03-01] MEDS: CARVEDILOL 3.125 MG TABLET GT (09:49)
[2024-03-01] MEDS: NON-FORMULARY *SEE COMMENTS* 1 EA EA 7.3 EA GT ×2 (09:50→20:48)
--- NOTE | 2024-03-01 11:35 | PD.SAPROG ---
Progress Note - SubAcute DIAGNOSIS (1) Chronic respiratory failure with hypoxia: Status: Chronic (2) Dependent on ventilator: Status: Chronic (3) Congestive cardiac failure: Status: Chronic (4) Epilepsy, unspecified, intractable, without status epilepticus: Status: Chronic (5) Anemia: Status: Chronic (6) Hypothyroidism, unspecified: Status: Chronic (7) Developmental disorder of scholastic skills, unspecified: Status: Chronic (8) Age-related osteoporosis without current pathological fracture: Status: Chronic (9) Gastrostomy status: Status: Chronic (10) Tracheostomy status: Status: Chronic SUBJECTIVE Fever:: unchanged (low grade) GI:: none Shortness of Breath:: none GI:: no complaints Pain:: none OBJECTIVE Most recent vital signs: Last Vital Signs Temp 97.4 F 03/01/24 05:46 Pulse 93 03/01/24 09:49 Resp 22 H 03/01/24 06:57 BP 113/71 03/01/24 09:49 Pulse Ox 99 03/01/24 06:57 O2 Del Method Mechanical Ventilation 03/01/24 05:46 FiO2 45 03/01/24 06:57 Neurological:: awake Speech:: nods head and appropriate (Sometimes) Answers questions:: sometimes Respiratory:: lungs clear Cardiovascular: RRR Abdomen: soft and nontender Decubitus:: none Tracheostomy:: to ventilator Feeding per:: G tube Complaints:: none ASSESSMENT & PLAN Assessment: Patient with cognitive function deficits. ventilator dependent. No distress. Stable condition. Diagnosis and treatment reviewed. Pt does not tolerate weaning from Ventilator. Family updated in IDT. Pt.'s father is very supportive. Transient increase in leak around gastrostomy site with coffee-ground liquid positive for occult blood. Symptomatic ineffective hence patient transferred to ER 09/15/2023 for evaluation and management. Displacement of G-tube into the pyloric bulb seemed to be causing outflow obstruction which on repositioning and semi-deflating the tube balloon did resolve and pt received back later that night in a stable condition with G I consult. now back to baseline stable status.Pt on mittens b/l for pulling on life sustaining tubings. Pt's father involved in pt care and kept informed. Treatment for pn. for which he was in acute care for two days. stable. No new issues Plan: Current treatment reviewed and continued
--- NOTE | 2024-03-01 12:01 | PC.SS ---
Resident received unannounced visit from [facility] counselor Georgi Zamora, he was provided with an update regarding resident transfer and return from acute care. Georgi stated he would make contact with RP/Jeremi Javier to further discuss resident current condition. No questions or concerns from Georgi. This SSD will send incident report to [facility] regarding resident transfer to acute care.
[2024-03-01] MEDS: LOSARTAN 25 MG TABLET GT (20:47)
[2024-03-01] MEDS: ACETAMINOPHEN 325 MG TABLET 650 MG GT (21:00)
[2024-03-02] VITALS (11 sets, daily range): BP systolic 107–119; BP diastolic 63–69; PULSE 30–84; RESP 20–26; TEMP 36.1–36.5; O2SAT 95–99
[2024-03-02] MEDS: IPRATROPIUM/ALBUTEROL 3 ML AMPUL.NEB INH ×4 (00:52→17:08)
[2024-03-02] MEDS: LACTULOSE 10 GM/15 ML SOLUTION GT ×3 (05:57→21:09)
[2024-03-02] MEDS: LEVOTHYROXINE 50 MCG TABLET GT (06:10)
[2024-03-02] MEDS: BUMETANIDE 1 MG TABLET GT ×2 (08:29→21:09)
[2024-03-02] MEDS: acetaZOLAMIDE 250 MG TABLET GT ×2 (08:29→21:08)
[2024-03-02] MEDS: FERROUS SULFATE 220 MG/5 ML ELIXIR 330 MG GT (08:31)
[2024-03-02] MEDS: FAMOTIDINE 20 MG TABLET GT (08:31)
[2024-03-02] MEDS: MULTIVITAMIN 1 TAB TABLET GT (08:32)
[2024-03-02] MEDS: POTASSIUM CHLORIDE 20 MEQ TAB.ER.PRT GT ×2 (08:33→21:09)
[2024-03-02] MEDS: NON-FORMULARY *SEE COMMENTS* 1 EA EA 7.3 EA GT ×2 (08:34→21:11)
[2024-03-02] MEDS: VALPROIC ACID 250 MG/5 ML 1000 MG GT (08:34)
[2024-03-02] MEDS: levETIRAcetam 750 MG TABLET GT ×2 (08:34→21:10)
[2024-03-02] MEDS: NON-FORMULARY *SEE COMMENTS* 1 EA EA 100 EA IV ×2 (09:35→21:45)
[2024-03-02] MEDS: ACETAMINOPHEN 325 MG TABLET 650 MG GT (21:10)
--- NOTE | 2024-03-02 23:25 | PC.NURSE ---
Resident continues on IV antibiotics: Doxycycline and Augmentin PGT for Pneumonia, no side effects noted. Discontinued IV to left foot due to being infiltrated and leaking. New 22G started to right foot, resident tolerated well.
[2024-03-03] VITALS (11 sets, daily range): BP systolic 102–131; BP diastolic 65–78; PULSE 73–92; RESP 20–30; TEMP 36.2–36.6; O2SAT 97–100
[2024-03-03] MEDS: IPRATROPIUM/ALBUTEROL 3 ML AMPUL.NEB INH ×4 (00:10→18:35)
[2024-03-03] MEDS: LACTULOSE 10 GM/15 ML SOLUTION GT ×3 (05:54→20:59)
[2024-03-03] MEDS: LEVOTHYROXINE 50 MCG TABLET GT (05:55)
[2024-03-03] MEDS: acetaZOLAMIDE 250 MG TABLET GT ×2 (08:34→20:20)
[2024-03-03] MEDS: BUMETANIDE 1 MG TABLET GT ×2 (08:34→20:22)
[2024-03-03] MEDS: FAMOTIDINE 20 MG TABLET GT (08:36)
[2024-03-03] MEDS: FERROUS SULFATE 220 MG/5 ML ELIXIR 330 MG GT (08:36)
[2024-03-03] MEDS: MULTIVITAMIN 1 TAB TABLET GT (08:36)
[2024-03-03] MEDS: VALPROIC ACID 250 MG/5 ML 1000 MG GT (08:37)
[2024-03-03] MEDS: POTASSIUM CHLORIDE 20 MEQ TAB.ER.PRT GT ×2 (08:37→20:23)
[2024-03-03] MEDS: levETIRAcetam 750 MG TABLET GT ×2 (08:37→20:24)
[2024-03-03] MEDS: NON-FORMULARY *SEE COMMENTS* 1 EA EA 7.3 EA GT ×2 (08:47→20:57)
[2024-03-03] MEDS: NON-FORMULARY *SEE COMMENTS* 1 EA EA 100 EA IV ×2 (09:58→21:10)
--- NOTE | 2024-03-03 14:57 | PC.SS ---
Addendum entered by Dee Garcia 03/03/24 14:58: Room visit: Resident is laying in bed with no change in care or condition. Resident remains conserved by his father, and is a [facility] client. Resident remains on ventilator with trach in place. Resident has GT in place for medication and nutrition. Resident is unable to make needs known, total care. Resident will remain in current care and will have all subacute care needs met by staff. Original Note: Room visit: Resident is laying in bed with no change in care or condition. Resident remains conserved by his father oerkiResident remains on ventilator with trach in place. Resident has GT in place for medication and nutrition. Resident is unable to make needs known, total care. Resident will remain in current care and will have all subacute care needs met by staff.
--- NOTE | 2024-03-03 18:21 | PC.NURSE ---
Resident continues on antibiotics, Doxycycline IV and Augmentin PGT for Pneumonia, no adverse reactions noted. Will continue to monitor.
--- NOTE | 2024-03-03 22:27 | PC.NURSE ---
Resident continues on G-tube and IV antibiotics for pneumonia. No adverse effects noted. Bilateral lungs with noted rhonci, V/S WNL. Vent continues in use with SpO2 at 98%. Suctioned as needed with moderate amount of yellow secretions noted. Fluids tolerated well via g-tube. No s/s of pain or discomfort.
[2024-03-04] VITALS (9 sets, daily range): BP systolic 103–117; BP diastolic 60–72; PULSE 68–92; RESP 20–29; TEMP 36.2–36.6; O2SAT 96–100
[2024-03-04] MEDS: IPRATROPIUM/ALBUTEROL 3 ML AMPUL.NEB INH ×4 (00:10→18:45)
[2024-03-04] MEDS: LACTULOSE 10 GM/15 ML SOLUTION GT ×2 (05:02→22:31)
[2024-03-04] MEDS: LEVOTHYROXINE 50 MCG TABLET GT (05:02)
--- NOTE | 2024-03-04 06:16 | PC.NURSE ---
Resident remains on IV antibiotics Doxycycline and Augmentin PGT for pneumonia, no side effects noted.
[2024-03-04] MEDS: NON-FORMULARY *SEE COMMENTS* 1 EA EA 100 EA IV ×2 (08:30→09:11)
[2024-03-04] MEDS: CARVEDILOL 3.125 MG TABLET GT (08:41)
[2024-03-04] MEDS: BUMETANIDE 1 MG TABLET GT ×2 (08:41→22:30)
[2024-03-04] MEDS: acetaZOLAMIDE 250 MG TABLET GT ×2 (08:41→21:10)
[2024-03-04] MEDS: FERROUS SULFATE 220 MG/5 ML ELIXIR 330 MG GT (08:42)
[2024-03-04] MEDS: VALPROIC ACID 250 MG/5 ML 1000 MG GT (08:42)
[2024-03-04] MEDS: FAMOTIDINE 20 MG TABLET GT (08:42)
[2024-03-04] MEDS: MULTIVITAMIN 1 TAB TABLET GT (08:42)
[2024-03-04] MEDS: POTASSIUM CHLORIDE 20 MEQ TAB.ER.PRT GT ×2 (08:42→21:10)
[2024-03-04] MEDS: levETIRAcetam 750 MG TABLET GT ×2 (08:44→21:10)
[2024-03-04] MEDS: guaiFENesin Liq 100 MG/5 ML LIQUID GT (08:50)
[2024-03-04] MEDS: NON-FORMULARY *SEE COMMENTS* 1 EA EA 7.3 EA GT ×2 (09:38→21:10)
--- NOTE | 2024-03-04 13:22 | PC.NURSE ---
Resident continues to receive antibiotics Doxycycline IV and Augmentin Via G-tube for Pneumonia. No adverse reactions noticed. Vital signs stable 97.8, 77, 22, 105/60. No s/s of any discomfort or distress noticed. Will continue to monitor.
--- NOTE | 2024-03-04 16:45 | PC.NURSE ---
When nurse was trying to shave resident this morning he was noncompliant moving his head from side to side making it difficult. Nurse accidentally nicked area above upper lip. Nurse cleansed and applied pressure to area to stop the bleed then covered with Bandaid. No signs of discomfort.
--- NOTE | 2024-03-04 18:12 | PC.NURSE ---
Continue on IV antibiotic doxycycline no adverse reaction noted we will continue to monitor.
[2024-03-05] VITALS (12 sets, daily range): BP systolic 94–146; BP diastolic 49–79; PULSE 26–98; RESP 17–30; TEMP 36.2–36.4; O2SAT 96–100
[2024-03-05] MEDS: IPRATROPIUM/ALBUTEROL 3 ML AMPUL.NEB INH ×4 (00:25→18:40)
[2024-03-05] MEDS: LEVOTHYROXINE 50 MCG TABLET GT (06:01)
[2024-03-05] MEDS: BUMETANIDE 1 MG TABLET GT ×2 (08:57→20:32)
[2024-03-05] MEDS: CARVEDILOL 3.125 MG TABLET GT (08:57)
[2024-03-05] MEDS: acetaZOLAMIDE 250 MG TABLET GT ×2 (08:57→20:32)
[2024-03-05] MEDS: VALPROIC ACID 250 MG/5 ML 1000 MG GT (08:58)
[2024-03-05] MEDS: POTASSIUM CHLORIDE 20 MEQ TAB.ER.PRT GT ×2 (08:58→20:33)
[2024-03-05] MEDS: FAMOTIDINE 20 MG TABLET GT (08:58)
[2024-03-05] MEDS: MULTIVITAMIN 1 TAB TABLET GT (08:58)
[2024-03-05] MEDS: FERROUS SULFATE 220 MG/5 ML ELIXIR 330 MG GT (08:58)
[2024-03-05] MEDS: NON-FORMULARY *SEE COMMENTS* 1 EA EA 7.3 EA GT ×2 (09:00→20:38)
[2024-03-05] MEDS: levETIRAcetam 750 MG TABLET GT ×2 (09:00→20:33)
[2024-03-05] MEDS: NON-FORMULARY *SEE COMMENTS* 1 EA EA 100 EA IV ×2 (09:15→20:49)
[2024-03-05] MEDS: LACTULOSE 10 GM/15 ML SOLUTION GT ×2 (13:10→21:46)
--- NOTE | 2024-03-05 17:59 | PD.SAPROG ---
Progress Note - SubAcute DIAGNOSIS (1) Chronic respiratory failure with hypoxia: Status: Chronic (2) Dependent on ventilator: Status: Chronic (3) Congestive cardiac failure: Status: Chronic (4) Epilepsy, unspecified, intractable, without status epilepticus: Status: Chronic (5) Anemia: Status: Chronic (6) Hypothyroidism, unspecified: Status: Chronic (7) Developmental disorder of scholastic skills, unspecified: Status: Chronic (8) Age-related osteoporosis without current pathological fracture: Status: Chronic (9) Gastrostomy status: Status: Chronic (10) Tracheostomy status: Status: Chronic SUBJECTIVE Fever:: unchanged (low grade) GI:: none Shortness of Breath:: none GI:: no complaints Pain:: none OBJECTIVE Most recent vital signs: Last Vital Signs Temp 97.2 F 03/05/24 17:37 Pulse 66 03/05/24 17:37 Resp 20 03/05/24 17:37 BP 146/79 H 03/05/24 17:37 Pulse Ox 100 03/05/24 17:37 O2 Del Method Mechanical Ventilation 03/05/24 06:00 FiO2 45 03/05/24 12:05 Neurological:: awake Speech:: nods head and appropriate (Sometimes) Answers questions:: sometimes Respiratory:: lungs clear Cardiovascular: RRR Abdomen: soft and nontender Decubitus:: none Tracheostomy:: to ventilator Feeding per:: G tube Complaints:: none ASSESSMENT & PLAN Assessment: Patient with cognitive function deficits. ventilator dependent. No distress. Stable condition. Diagnosis and treatment reviewed. Pt does not tolerate weaning from Ventilator. Family updated in IDT. Pt.'s father is very supportive. Transient increase in leak around gastrostomy site with coffee-ground liquid positive for occult blood. Symptomatic ineffective hence patient transferred to ER 09/15/2023 for evaluation and management. Displacement of G-tube into the pyloric bulb seemed to be causing outflow obstruction which on repositioning and semi-deflating the tube balloon did resolve and pt received back later that night in a stable condition with G I consult. now back to baseline stable status.Pt on mittens b/l for pulling on life sustaining tubings. Pt's father involved in pt care and kept informed. Treatment for pn. for which he was in acute care for two days. stable. No new issues Plan: Current treatment reviewed and continued
--- NOTE | 2024-03-05 18:03 | PC.NURSE ---
Resident continues on IV antibiotic Doxycycline for PNA with no adverse reactions noted.
[2024-03-06] VITALS (8 sets, daily range): BP systolic 96–120; BP diastolic 59–82; PULSE 59–82; RESP 20–27; TEMP 36.1–36.3; O2SAT 96–100
[2024-03-06] MEDS: IPRATROPIUM/ALBUTEROL 3 ML AMPUL.NEB INH ×4 (00:10→18:30)
--- NOTE | 2024-03-06 02:00 | PC.NURSE ---
Resident continues with Doxycycline IV and Augmentin Agustina. for PNA, new IV placed to left FA, 22G, previous IV was infiltrated, no s/s of AR or side effects, afebrile, resident in room resting, call light within reach, no s/s of distress noted at this time.
[2024-03-06] MEDS: LACTULOSE 10 GM/15 ML SOLUTION GT ×3 (05:12→21:04)
[2024-03-06] MEDS: LEVOTHYROXINE 50 MCG TABLET GT (05:12)
[2024-03-06] MEDS: acetaZOLAMIDE 250 MG TABLET GT ×2 (08:49→20:56)
[2024-03-06] MEDS: FAMOTIDINE 20 MG TABLET GT (08:50)
[2024-03-06] MEDS: CARVEDILOL 3.125 MG TABLET GT (08:50)
[2024-03-06] MEDS: BUMETANIDE 1 MG TABLET GT ×2 (08:50→20:56)
[2024-03-06] MEDS: levETIRAcetam 750 MG TABLET GT ×2 (08:51→20:55)
[2024-03-06] MEDS: VALPROIC ACID 250 MG/5 ML 1000 MG GT (08:51)
[2024-03-06] MEDS: POTASSIUM CHLORIDE 20 MEQ TAB.ER.PRT GT ×2 (08:51→20:55)
[2024-03-06] MEDS: MULTIVITAMIN 1 TAB TABLET GT (08:51)
[2024-03-06] MEDS: NON-FORMULARY *SEE COMMENTS* 1 EA EA 7.3 EA GT ×2 (08:51→21:06)
[2024-03-06] MEDS: FERROUS SULFATE 220 MG/5 ML ELIXIR 330 MG GT (08:53)
[2024-03-06] MEDS: MAGNESIUM HYDROXIDE 30 ML ORAL SUSP ML GT (08:55)
[2024-03-06] MEDS: NON-FORMULARY *SEE COMMENTS* 1 EA EA 100 EA IV ×2 (08:57→21:00)
[2024-03-07] VITALS (12 sets, daily range): BP systolic 105–127; BP diastolic 66–77; PULSE 72–83; RESP 22–29; TEMP 35.9–36.4; O2SAT 96–100
[2024-03-07] MEDS: IPRATROPIUM/ALBUTEROL 3 ML AMPUL.NEB INH ×4 (00:10→17:05)
[2024-03-07] MEDS: LEVOTHYROXINE 50 MCG TABLET GT (06:55)
[2024-03-07] MEDS: BUMETANIDE 1 MG TABLET GT ×2 (08:34→20:48)
[2024-03-07] MEDS: acetaZOLAMIDE 250 MG TABLET GT ×2 (08:34→20:47)
[2024-03-07] MEDS: MULTIVITAMIN 1 TAB TABLET GT (08:35)
[2024-03-07] MEDS: VALPROIC ACID 250 MG/5 ML 1000 MG GT (08:35)
[2024-03-07] MEDS: POTASSIUM CHLORIDE 20 MEQ TAB.ER.PRT GT ×2 (08:35→20:48)
[2024-03-07] MEDS: FAMOTIDINE 20 MG TABLET GT (08:35)
[2024-03-07] MEDS: FERROUS SULFATE 220 MG/5 ML ELIXIR 330 MG GT (08:35)
[2024-03-07] MEDS: NON-FORMULARY *SEE COMMENTS* 1 EA EA 7.3 EA GT ×2 (09:11→20:49)
--- NOTE | 2024-03-07 11:50 | PC.SS ---
This SSD and IP nurse called and spoke with RP/cnservator Jeremi Javier regarding COVID and Flu vaccine. IP provided education on both vaccines. RP has given consent on both vaccines. Facts sheets and copy of consents to be mailed to RP. Resident is a [facility] client, this SSD will notify [facility] of consent and vaccines provided.
[2024-03-07] MEDS: LACTULOSE 10 GM/15 ML SOLUTION GT ×2 (14:30→20:48)
--- NOTE | 2024-03-07 18:33 | PC.NURSE ---
Resident continues to receive antibiotics Doxyxcycline IV and Augmentin via G-tube. No adverse reactions noticed. Vital signs within normal parameters. No signs of any distress. Call light within reach.
[2024-03-07] MEDS: ACETAMINOPHEN 325 MG TABLET 650 MG GT (20:45)
[2024-03-07] MEDS: levETIRAcetam 750 MG TABLET GT (20:49)
[2024-03-07] MEDS: LOSARTAN 25 MG TABLET GT (20:49)
[2024-03-08] VITALS (11 sets, daily range): BP systolic 97–109; BP diastolic 57–65; PULSE 76–107; RESP 20–29; TEMP 36.2–36.5; O2SAT 94–100
[2024-03-08] MEDS: IPRATROPIUM/ALBUTEROL 3 ML AMPUL.NEB INH ×4 (00:30→18:52)
[2024-03-08] MEDS: LACTULOSE 10 GM/15 ML SOLUTION GT ×3 (05:22→20:52)
[2024-03-08] MEDS: LEVOTHYROXINE 50 MCG TABLET GT (05:23)
--- NOTE | 2024-03-08 05:37 | PC.NURSE ---
Resident completed IV antibiotics Doxycycline for PNA, no side effects noted, remains on Augmentin PGT for PNA, no side effects noted
[2024-03-08] MEDS: BUMETANIDE 1 MG TABLET GT ×2 (08:35→20:53)
[2024-03-08] MEDS: acetaZOLAMIDE 250 MG TABLET GT ×2 (08:35→20:53)
[2024-03-08] MEDS: FAMOTIDINE 20 MG TABLET GT (08:36)
[2024-03-08] MEDS: levETIRAcetam 750 MG TABLET GT ×2 (08:37→20:53)
[2024-03-08] MEDS: FERROUS SULFATE 220 MG/5 ML ELIXIR 330 MG GT (08:37)
[2024-03-08] MEDS: POTASSIUM CHLORIDE 20 MEQ TAB.ER.PRT GT ×2 (08:38→20:53)
[2024-03-08] MEDS: MULTIVITAMIN 1 TAB TABLET GT (08:38)
[2024-03-08] MEDS: VALPROIC ACID 250 MG/5 ML 1000 MG GT (08:39)
[2024-03-08] MEDS: NON-FORMULARY *SEE COMMENTS* 1 EA EA 7.3 EA GT ×2 (08:40→20:55)
[2024-03-08] MEDS: ACETAMINOPHEN 325 MG TABLET 650 MG GT (20:50)
[2024-03-09] VITALS (12 sets, daily range): BP systolic 99–147; BP diastolic 68–79; PULSE 74–114; RESP 22–31; TEMP 36.4–36.7; O2SAT 98–100
[2024-03-09] MEDS: IPRATROPIUM/ALBUTEROL 3 ML AMPUL.NEB INH ×4 (00:37→18:55)
[2024-03-09] MEDS: LEVOTHYROXINE 50 MCG TABLET GT (05:09)
[2024-03-09] MEDS: LACTULOSE 10 GM/15 ML SOLUTION GT ×3 (05:09→21:14)
[2024-03-09] MEDS: NON-FORMULARY *SEE COMMENTS* 1 EA EA 7.3 EA GT ×2 (08:47→21:20)
[2024-03-09] MEDS: BUMETANIDE 1 MG TABLET GT ×2 (09:43→21:15)
[2024-03-09] MEDS: acetaZOLAMIDE 250 MG TABLET GT ×2 (09:43→21:15)
[2024-03-09] MEDS: CARVEDILOL 3.125 MG TABLET GT (09:44)
[2024-03-09] MEDS: MULTIVITAMIN 1 TAB TABLET GT (09:44)
[2024-03-09] MEDS: VALPROIC ACID 250 MG/5 ML 1000 MG GT (09:44)
[2024-03-09] MEDS: FAMOTIDINE 20 MG TABLET GT (09:44)
[2024-03-09] MEDS: FERROUS SULFATE 220 MG/5 ML ELIXIR 330 MG GT (09:44)
[2024-03-09] MEDS: POTASSIUM CHLORIDE 20 MEQ TAB.ER.PRT GT ×2 (09:44→21:18)
[2024-03-09] MEDS: levETIRAcetam 750 MG TABLET GT ×2 (09:44→21:18)
--- NOTE | 2024-03-09 10:49 | PC.SS ---
Room visit: Resident is laying in bed with head of the bed elevated with call light properly placed. Resident is well groomed and is seen in good spirits smiling during room visit. Resident has no changes in care or condition, he remains on ventilator with trach in place and GT in place for medication and nutrition. Resident will remain in current care as he is not ready to DC to lower level of care, due to heavy and complicated care regimen he will continue to have all subacute care needs met by staff. SSD will continue to make daily contact with resident and monitor for changes in mood and behavior.
[2024-03-09] MEDS: LOSARTAN 25 MG TABLET GT (21:20)
--- NOTE | 2024-03-09 22:13 | PD.SAPROG ---
Progress Note - SubAcute DIAGNOSIS (1) Chronic respiratory failure with hypoxia: Status: Chronic (2) Dependent on ventilator: Status: Chronic (3) Congestive cardiac failure: Status: Chronic (4) Epilepsy, unspecified, intractable, without status epilepticus: Status: Chronic (5) Anemia: Status: Chronic (6) Hypothyroidism, unspecified: Status: Chronic (7) Developmental disorder of scholastic skills, unspecified: Status: Chronic (8) Age-related osteoporosis without current pathological fracture: Status: Chronic (9) Gastrostomy status: Status: Chronic (10) Tracheostomy status: Status: Chronic SUBJECTIVE Fever:: unchanged (low grade) GI:: none Shortness of Breath:: none GI:: no complaints Pain:: none OBJECTIVE Most recent vital signs: Last Vital Signs Temp 97.8 F 03/09/24 18:00 Pulse 114 H 03/09/24 21:20 Resp 25 H 03/09/24 18:00 BP 131/78 H 03/09/24 21:20 Pulse Ox 99 03/09/24 12:10 O2 Del Method Mechanical Ventilation 03/09/24 11:28 FiO2 45 03/09/24 12:10 Neurological:: awake Speech:: nods head and appropriate (Sometimes) Answers questions:: sometimes Respiratory:: lungs clear Cardiovascular: RRR Abdomen: soft and nontender Decubitus:: none Tracheostomy:: to ventilator Feeding per:: G tube Complaints:: none ASSESSMENT & PLAN Assessment: Patient with cognitive function deficits. ventilator dependent. No distress. Stable condition. Diagnosis and treatment reviewed. Pt does not tolerate weaning from Ventilator. Family updated in IDT. Pt.'s father is very supportive. Plan: Current treatment reviewed and continued
[2024-03-10] VITALS (8 sets, daily range): BP systolic 120–134; BP diastolic 73–86; PULSE 74–96; RESP 22–26; TEMP 36.1–36.7; O2SAT 97–100
[2024-03-10] MEDS: IPRATROPIUM/ALBUTEROL 3 ML AMPUL.NEB INH ×4 (01:40→18:15)
[2024-03-10] MEDS: LACTULOSE 10 GM/15 ML SOLUTION GT ×2 (05:06→13:39)
[2024-03-10] MEDS: LEVOTHYROXINE 50 MCG TABLET GT (05:06)
[2024-03-10] MEDS: levETIRAcetam 750 MG TABLET GT ×2 (08:28→20:48)
[2024-03-10] MEDS: acetaZOLAMIDE 250 MG TABLET GT ×2 (08:29→20:48)
[2024-03-10] MEDS: NON-FORMULARY *SEE COMMENTS* 1 EA EA 7.3 EA GT (08:29)
[2024-03-10] MEDS: CARVEDILOL 3.125 MG TABLET GT (08:29)
[2024-03-10] MEDS: BUMETANIDE 1 MG TABLET GT ×2 (08:29→20:48)
[2024-03-10] MEDS: VALPROIC ACID 250 MG/5 ML 1000 MG GT (08:30)
[2024-03-10] MEDS: FERROUS SULFATE 220 MG/5 ML ELIXIR 330 MG GT (08:30)
[2024-03-10] MEDS: POTASSIUM CHLORIDE 20 MEQ TAB.ER.PRT GT ×2 (08:30→20:48)
[2024-03-10] MEDS: MULTIVITAMIN 1 TAB TABLET GT (08:30)
[2024-03-10] MEDS: FAMOTIDINE 20 MG TABLET GT (08:30)
--- NOTE | 2024-03-10 16:18 | PC.NURSE ---
Continues to receive ABX medication Augmentin via g-tube. No adverse reactions noticed. Vital signs within parameters. Call light within reach
--- NOTE | 2024-03-10 16:31 | PC.NURSE ---
Last dose of Augmentin PGT was given this morning, no adverse reaction noted. Resident remains stable, afebrile. No s/s of pain or discomfort. GT feeding tolerated well. Remains on mechanical ventilator, no s/s of respiratory distress noted.
[2024-03-11] VITALS (12 sets, daily range): BP systolic 101–126; BP diastolic 55–75; PULSE 78–102; RESP 22–32; TEMP 36.3–36.6; O2SAT 97–99
[2024-03-11] MEDS: ACETAMINOPHEN 325 MG TABLET 650 MG GT ×2 (00:41→16:27)
[2024-03-11] MEDS: IPRATROPIUM/ALBUTEROL 3 ML AMPUL.NEB INH ×4 (01:00→19:00)
[2024-03-11] MEDS: LACTULOSE 10 GM/15 ML SOLUTION GT ×3 (05:07→21:54)
[2024-03-11] MEDS: LEVOTHYROXINE 50 MCG TABLET GT (05:08)
[2024-03-11] MEDS: levETIRAcetam 750 MG TABLET GT ×2 (08:38→20:29)
[2024-03-11] MEDS: acetaZOLAMIDE 250 MG TABLET GT ×2 (08:39→20:29)
[2024-03-11] MEDS: BUMETANIDE 1 MG TABLET GT ×2 (08:39→20:29)
[2024-03-11] MEDS: FERROUS SULFATE 220 MG/5 ML ELIXIR 330 MG GT (08:41)
[2024-03-11] MEDS: FAMOTIDINE 20 MG TABLET GT (08:41)
[2024-03-11] MEDS: MULTIVITAMIN 1 TAB TABLET GT (08:42)
[2024-03-11] MEDS: POTASSIUM CHLORIDE 20 MEQ TAB.ER.PRT GT ×2 (08:42→20:30)
[2024-03-11] MEDS: VALPROIC ACID 250 MG/5 ML 1000 MG GT (08:42)
[2024-03-11] MEDS: guaiFENesin Liq 100 MG/5 ML LIQUID GT ×2 (08:56→16:27)
[2024-03-11] MEDS: LOSARTAN 25 MG TABLET GT (20:30)
[2024-03-12] VITALS (9 sets, daily range): BP systolic 101–147; BP diastolic 57–73; PULSE 65–100; RESP 20–32; TEMP 36.3–36.6; O2SAT 97–99
[2024-03-12] MEDS: IPRATROPIUM/ALBUTEROL 3 ML AMPUL.NEB INH ×4 (01:42→19:10)
[2024-03-12] MEDS: levETIRAcetam 750 MG TABLET GT ×2 (08:50→20:35)
[2024-03-12] MEDS: acetaZOLAMIDE 250 MG TABLET GT ×2 (08:50→20:36)
[2024-03-12] MEDS: FAMOTIDINE 20 MG TABLET GT (08:51)
[2024-03-12] MEDS: CARVEDILOL 3.125 MG TABLET GT (08:51)
[2024-03-12] MEDS: BUMETANIDE 1 MG TABLET GT ×2 (08:51→20:36)
[2024-03-12] MEDS: MULTIVITAMIN 1 TAB TABLET GT (08:51)
[2024-03-12] MEDS: FERROUS SULFATE 220 MG/5 ML ELIXIR 330 MG GT (08:51)
[2024-03-12] MEDS: POTASSIUM CHLORIDE 20 MEQ TAB.ER.PRT GT ×2 (08:52→20:36)
[2024-03-12] MEDS: VALPROIC ACID 250 MG/5 ML 1000 MG GT (08:52)
[2024-03-12] MEDS: LACTULOSE 10 GM/15 ML SOLUTION GT (20:35)
[2024-03-13] VITALS (10 sets, daily range): BP systolic 101–119; BP diastolic 59–73; PULSE 79–95; RESP 21–28; TEMP 36.1–36.4; O2SAT 97–100
[2024-03-13] MEDS: IPRATROPIUM/ALBUTEROL 3 ML AMPUL.NEB INH ×4 (01:18→18:30)
[2024-03-13] MEDS: LEVOTHYROXINE 50 MCG TABLET GT (05:24)
[2024-03-13] MEDS: LACTULOSE 10 GM/15 ML SOLUTION GT ×3 (05:24→20:20)
[2024-03-13] MEDS: levETIRAcetam 750 MG TABLET GT ×2 (08:53→20:20)
[2024-03-13] MEDS: acetaZOLAMIDE 250 MG TABLET GT ×2 (08:53→20:21)
[2024-03-13] MEDS: MULTIVITAMIN 1 TAB TABLET GT (08:54)
[2024-03-13] MEDS: BUMETANIDE 1 MG TABLET GT ×2 (08:54→20:21)
[2024-03-13] MEDS: CARVEDILOL 3.125 MG TABLET GT (08:54)
[2024-03-13] MEDS: FAMOTIDINE 20 MG TABLET GT (08:54)
[2024-03-13] MEDS: FERROUS SULFATE 220 MG/5 ML ELIXIR 330 MG GT (08:54)
[2024-03-13] MEDS: POTASSIUM CHLORIDE 20 MEQ TAB.ER.PRT GT ×2 (08:55→20:21)
[2024-03-13] MEDS: VALPROIC ACID 250 MG/5 ML 1000 MG GT (08:55)
[2024-03-13] MEDS: ACETAMINOPHEN 325 MG TABLET 650 MG GT ×2 (10:52→20:20)
--- NOTE | 2024-03-13 16:22 | PC.NURSE ---
Seen by Dr Lackey, no new orders made
[2024-03-13] MEDS: LOSARTAN 25 MG TABLET GT (20:21)
--- NOTE | 2024-03-13 21:00 | PD.SAPROG ---
Progress Note - SubAcute DIAGNOSIS (1) Chronic respiratory failure with hypoxia: Status: Chronic (2) Dependent on ventilator: Status: Chronic (3) Congestive cardiac failure: Status: Chronic (4) Epilepsy, unspecified, intractable, without status epilepticus: Status: Chronic (5) Anemia: Status: Chronic (6) Hypothyroidism, unspecified: Status: Chronic (7) Developmental disorder of scholastic skills, unspecified: Status: Chronic (8) Age-related osteoporosis without current pathological fracture: Status: Chronic (9) Gastrostomy status: Status: Chronic (10) Tracheostomy status: Status: Chronic SUBJECTIVE Fever:: unchanged (low grade) GI:: none Shortness of Breath:: none GI:: no complaints Pain:: none OBJECTIVE Most recent vital signs: Last Vital Signs Temp 97.0 F 03/13/24 16:34 Pulse 86 03/13/24 20:21 Resp 21 H 03/13/24 16:34 BP 119/73 03/13/24 20:21 Pulse Ox 99 03/13/24 16:34 O2 Del Method Mechanical Ventilation 03/13/24 16:34 FiO2 46 03/13/24 16:34 Neurological:: awake Speech:: nods head and appropriate (Sometimes) Answers questions:: sometimes Respiratory:: lungs clear Cardiovascular: RRR Abdomen: soft and nontender Decubitus:: none Tracheostomy:: to ventilator Feeding per:: G tube Complaints:: none ASSESSMENT & PLAN Assessment: Patient with cognitive function deficits. ventilator dependent. No distress. Stable condition. Diagnosis and treatment reviewed. Pt does not tolerate weaning from Ventilator, attempted very many times in the past.. Family updated in IDT. Pt.'s father is very supportive. Plan: Current treatment reviewed and continued
[2024-03-14] VITALS (12 sets, daily range): BP systolic 99–117; BP diastolic 62–66; PULSE 68–88; RESP 20–30; TEMP 36.4–36.8; O2SAT 96–100
[2024-03-14] MEDS: IPRATROPIUM/ALBUTEROL 3 ML AMPUL.NEB INH ×4 (00:30→19:18)
[2024-03-14] MEDS: LACTULOSE 10 GM/15 ML SOLUTION GT ×3 (05:23→20:37)
[2024-03-14] MEDS: LEVOTHYROXINE 50 MCG TABLET GT (05:23)
[2024-03-14] MEDS: levETIRAcetam 750 MG TABLET GT ×2 (08:44→20:36)
[2024-03-14] MEDS: BUMETANIDE 1 MG TABLET GT ×2 (08:44→20:37)
[2024-03-14] MEDS: acetaZOLAMIDE 250 MG TABLET GT ×2 (08:44→20:37)
[2024-03-14] MEDS: POTASSIUM CHLORIDE 20 MEQ TAB.ER.PRT GT ×2 (08:45→20:37)
[2024-03-14] MEDS: VALPROIC ACID 250 MG/5 ML 1000 MG GT (08:45)
[2024-03-14] MEDS: FERROUS SULFATE 220 MG/5 ML ELIXIR 330 MG GT (08:45)
[2024-03-14] MEDS: FAMOTIDINE 20 MG TABLET GT (08:45)
[2024-03-14] MEDS: MULTIVITAMIN 1 TAB TABLET GT (08:45)
[2024-03-14] MEDS: ACETAMINOPHEN 325 MG TABLET 650 MG GT ×2 (08:47→20:35)
[2024-03-14] MEDS: guaiFENesin Liq 100 MG/5 ML LIQUID GT (08:47)
[2024-03-15] VITALS (8 sets, daily range): BP systolic 99–131; BP diastolic 59–79; PULSE 70–93; RESP 22–32; TEMP 36.3–36.5; O2SAT 96–100
[2024-03-15] MEDS: LACTULOSE 10 GM/15 ML SOLUTION GT ×3 (05:15→21:10)
[2024-03-15] MEDS: LEVOTHYROXINE 50 MCG TABLET GT (05:15)
[2024-03-15] MEDS: IPRATROPIUM/ALBUTEROL 3 ML AMPUL.NEB INH ×4 (06:28→19:28)
[2024-03-15] MEDS: acetaZOLAMIDE 250 MG TABLET GT ×2 (09:21→20:20)
[2024-03-15] MEDS: CARVEDILOL 3.125 MG TABLET GT (09:21)
[2024-03-15] MEDS: levETIRAcetam 750 MG TABLET GT ×2 (09:21→20:19)
[2024-03-15] MEDS: BUMETANIDE 1 MG TABLET GT ×2 (09:21→20:20)
[2024-03-15] MEDS: FERROUS SULFATE 220 MG/5 ML ELIXIR 330 MG GT (09:22)
[2024-03-15] MEDS: FAMOTIDINE 20 MG TABLET GT (09:22)
[2024-03-15] MEDS: POTASSIUM CHLORIDE 20 MEQ TAB.ER.PRT GT ×2 (09:22→20:21)
[2024-03-15] MEDS: VALPROIC ACID 250 MG/5 ML 1000 MG GT (09:22)
[2024-03-15] MEDS: MULTIVITAMIN 1 TAB TABLET GT (09:22)
[2024-03-16] VITALS (10 sets, daily range): BP systolic 99–131; BP diastolic 62–75; PULSE 70–89; RESP 20–28; TEMP 36.3–36.5; O2SAT 97–100
[2024-03-16] MEDS: ACETAMINOPHEN 325 MG TABLET 650 MG GT (00:45)
[2024-03-16] MEDS: IPRATROPIUM/ALBUTEROL 3 ML AMPUL.NEB INH ×4 (01:45→18:38)
[2024-03-16] MEDS: LEVOTHYROXINE 50 MCG TABLET GT (05:11)
[2024-03-16] MEDS: levETIRAcetam 750 MG TABLET GT ×2 (08:31→21:40)
[2024-03-16] MEDS: acetaZOLAMIDE 250 MG TABLET GT ×2 (08:31→21:41)
[2024-03-16] MEDS: BUMETANIDE 1 MG TABLET GT ×2 (08:32→21:41)
[2024-03-16] MEDS: FERROUS SULFATE 220 MG/5 ML ELIXIR 330 MG GT (08:33)
[2024-03-16] MEDS: FAMOTIDINE 20 MG TABLET GT (08:33)
[2024-03-16] MEDS: MULTIVITAMIN 1 TAB TABLET GT (08:35)
[2024-03-16] MEDS: VALPROIC ACID 250 MG/5 ML 1000 MG GT (08:35)
[2024-03-16] MEDS: POTASSIUM CHLORIDE 20 MEQ TAB.ER.PRT GT ×2 (08:35→21:42)
--- NOTE | 2024-03-16 13:50 | PC.IP ---
After consent obtained from resident's father as RP, seasonal Influenza vaccine ordered for admininistration. Offered printed material as Vaccine Information Sheets to be mailed and declined stating, You know what you're doing and are taking good care of him. Given information on risks and benefits of seasonal vaccine administration. Assured that vital signs and any signs of temperature or discomfort would be monitored closely and Tylenol or Ibuprofen would be available as per appropriate and MD order. Mr. Javier had no further questions or expressed concerns.
[2024-03-16] MEDS: FLU VACC QS 2023-24 (6 MOS UP) 60 MCG/0.5 ML VIAL IMi (17:41)
--- NOTE | 2024-03-16 18:30 | PC.NURSE ---
Resident receive Flu vaccine in the left deltoid, made a round luanne where it was administered. Lot# [id number], expiration date 12/25/2024, Afluria [id number] formula vial used. No s/s of allergic reaction noted and vital signs continue stable. Vital signs before administration of flu vaccine 97.7, HR 73,resp. 28, BP 112/70 and saturations 98%. Vital signs will continue every 4 hours for 48 hours. Will continue to monitor closely, call light within reach.
[2024-03-16] MEDS: LACTULOSE 10 GM/15 ML SOLUTION GT (21:43)
[2024-03-17] VITALS (10 sets, daily range): BP systolic 102–130; BP diastolic 62–79; PULSE 76–111; RESP 21–27; TEMP 36.1–36.6; O2SAT 98–100
[2024-03-17] MEDS: IPRATROPIUM/ALBUTEROL 3 ML AMPUL.NEB INH ×4 (01:39→18:48)
[2024-03-17] MEDS: LEVOTHYROXINE 50 MCG TABLET GT (06:14)
[2024-03-17] MEDS: ACETAMINOPHEN 325 MG TABLET 650 MG GT (07:40)
[2024-03-17] MEDS: guaiFENesin Liq 100 MG/5 ML LIQUID GT (07:40)
[2024-03-17] MEDS: acetaZOLAMIDE 250 MG TABLET GT ×2 (08:45→20:52)
[2024-03-17] MEDS: BUMETANIDE 1 MG TABLET GT ×2 (08:45→20:52)
[2024-03-17] MEDS: FAMOTIDINE 20 MG TABLET GT (08:45)
[2024-03-17] MEDS: FERROUS SULFATE 220 MG/5 ML ELIXIR 330 MG GT (08:45)
[2024-03-17] MEDS: CARVEDILOL 3.125 MG TABLET GT (08:45)
[2024-03-17] MEDS: levETIRAcetam 750 MG TABLET GT ×2 (08:46→20:52)
[2024-03-17] MEDS: VALPROIC ACID 250 MG/5 ML 1000 MG GT (08:46)
[2024-03-17] MEDS: POTASSIUM CHLORIDE 20 MEQ TAB.ER.PRT GT ×2 (08:46→20:53)
[2024-03-17] MEDS: MULTIVITAMIN 1 TAB TABLET GT (08:46)
[2024-03-17] MEDS: LACTULOSE 10 GM/15 ML SOLUTION GT (13:18)
[2024-03-17] MEDS: LOSARTAN 25 MG TABLET GT (20:52)
[2024-03-17] MEDS: CARBAMIDE PEROXIDE OTIC SOL 15 ML BTL 5 DROP BOTH EARS (21:00)
--- NOTE | 2024-03-17 22:56 | PD.SAPROG ---
Progress Note - SubAcute DIAGNOSIS (1) Chronic respiratory failure with hypoxia: Status: Chronic (2) Dependent on ventilator: Status: Chronic (3) Congestive cardiac failure: Status: Chronic (4) Epilepsy, unspecified, intractable, without status epilepticus: Status: Chronic (5) Anemia: Status: Chronic (6) Hypothyroidism, unspecified: Status: Chronic (7) Developmental disorder of scholastic skills, unspecified: Status: Chronic (8) Age-related osteoporosis without current pathological fracture: Status: Chronic (9) Gastrostomy status: Status: Chronic (10) Tracheostomy status: Status: Chronic SUBJECTIVE Fever:: unchanged (low grade) GI:: none Shortness of Breath:: none GI:: no complaints Pain:: none OBJECTIVE Most recent vital signs: Last Vital Signs Temp 96.9 F 03/17/24 17:39 Pulse 96 03/17/24 20:52 Resp 25 H 03/17/24 18:48 BP 130/79 03/17/24 20:52 Pulse Ox 99 03/17/24 18:48 O2 Del Method Mechanical Ventilation 03/17/24 17:39 FiO2 47 03/17/24 18:48 Neurological:: awake Speech:: nods head and appropriate (Sometimes) Answers questions:: sometimes Respiratory:: lungs clear Cardiovascular: RRR Abdomen: soft and nontender Decubitus:: none Tracheostomy:: to ventilator Feeding per:: G tube Complaints:: none ASSESSMENT & PLAN Assessment: Patient with cognitive function deficits. ventilator dependent. No distress. Stable condition. Diagnosis and treatment reviewed. Pt does not tolerate weaning from Ventilator, attempted very many times in the past.. Pt being slightly more interactive with staff after a long time Plan: Current treatment reviewed and continued
[2024-03-18] VITALS (9 sets, daily range): BP systolic 101–120; BP diastolic 61–79; PULSE 75–109; RESP 20–29; TEMP 36.4–37.2; O2SAT 95–100
[2024-03-18] MEDS: IPRATROPIUM/ALBUTEROL 3 ML AMPUL.NEB INH ×4 (01:00→18:42)
[2024-03-18] MEDS: LACTULOSE 10 GM/15 ML SOLUTION GT ×2 (05:34→21:30)
[2024-03-18] MEDS: LEVOTHYROXINE 50 MCG TABLET GT (05:34)
[2024-03-18] MEDS: acetaZOLAMIDE 250 MG TABLET GT ×2 (08:55→21:30)
[2024-03-18] MEDS: CARBAMIDE PEROXIDE OTIC SOL 15 ML BTL 5 DROP BOTH EARS ×2 (08:55→21:30)
[2024-03-18] MEDS: BUMETANIDE 1 MG TABLET GT ×2 (08:55→21:30)
[2024-03-18] MEDS: CARVEDILOL 3.125 MG TABLET GT (08:56)
[2024-03-18] MEDS: MULTIVITAMIN 1 TAB TABLET GT (08:56)
[2024-03-18] MEDS: FERROUS SULFATE 220 MG/5 ML ELIXIR 330 MG GT (08:56)
[2024-03-18] MEDS: POTASSIUM CHLORIDE 20 MEQ TAB.ER.PRT GT ×2 (08:56→21:31)
[2024-03-18] MEDS: FAMOTIDINE 20 MG TABLET GT (08:56)
[2024-03-18] MEDS: levETIRAcetam 750 MG TABLET GT ×2 (08:56→21:30)
[2024-03-18] MEDS: VALPROIC ACID 250 MG/5 ML 1000 MG GT (08:56)
[2024-03-19] VITALS (11 sets, daily range): BP systolic 98–116; BP diastolic 55–72; PULSE 71–110; RESP 20–31; TEMP 36.6–36.9; O2SAT 98–100
[2024-03-19] MEDS: IPRATROPIUM/ALBUTEROL 3 ML AMPUL.NEB INH ×4 (00:10→18:54)
[2024-03-19] MEDS: LACTULOSE 10 GM/15 ML SOLUTION GT ×3 (05:12→21:59)
[2024-03-19] MEDS: LEVOTHYROXINE 50 MCG TABLET GT (05:12)
[2024-03-19] MEDS: acetaZOLAMIDE 250 MG TABLET GT ×2 (08:13→20:02)
[2024-03-19] MEDS: BUMETANIDE 1 MG TABLET GT ×2 (08:13→20:02)
[2024-03-19] MEDS: CARBAMIDE PEROXIDE OTIC SOL 15 ML BTL 5 DROP BOTH EARS (08:14)
[2024-03-19] MEDS: FERROUS SULFATE 220 MG/5 ML ELIXIR 330 MG GT (08:16)
[2024-03-19] MEDS: levETIRAcetam 750 MG TABLET GT ×2 (08:16→20:03)
[2024-03-19] MEDS: MULTIVITAMIN 1 TAB TABLET GT (08:16)
[2024-03-19] MEDS: POTASSIUM CHLORIDE 20 MEQ TAB.ER.PRT GT ×2 (08:16→20:03)
[2024-03-19] MEDS: FAMOTIDINE 20 MG TABLET GT (08:16)
[2024-03-19] MEDS: VALPROIC ACID 250 MG/5 ML 1000 MG GT (08:18)
[2024-03-19] MEDS: LOSARTAN 25 MG TABLET GT (20:03)
[2024-03-20] VITALS (10 sets, daily range): BP systolic 98–136; BP diastolic 64–86; PULSE 70–98; RESP 18–28; TEMP 36.1–36.9; O2SAT 98–100
[2024-03-20] MEDS: IPRATROPIUM/ALBUTEROL 3 ML AMPUL.NEB INH ×4 (00:58→18:25)
[2024-03-20] MEDS: LACTULOSE 10 GM/15 ML SOLUTION GT ×2 (05:28→21:25)
[2024-03-20] MEDS: LEVOTHYROXINE 50 MCG TABLET GT (05:28)
[2024-03-20] MEDS: acetaZOLAMIDE 250 MG TABLET GT ×2 (09:03→20:37)
[2024-03-20] MEDS: BUMETANIDE 1 MG TABLET GT ×2 (09:03→20:37)
[2024-03-20] MEDS: FAMOTIDINE 20 MG TABLET GT (09:04)
[2024-03-20] MEDS: FERROUS SULFATE 220 MG/5 ML ELIXIR 330 MG GT (09:04)
[2024-03-20] MEDS: POTASSIUM CHLORIDE 20 MEQ TAB.ER.PRT GT ×2 (09:05→20:38)
[2024-03-20] MEDS: levETIRAcetam 750 MG TABLET GT ×2 (09:05→20:38)
[2024-03-20] MEDS: MULTIVITAMIN 1 TAB TABLET GT (09:05)
[2024-03-20] MEDS: VALPROIC ACID 250 MG/5 ML 1000 MG GT (09:05)
[2024-03-20] MEDS: CARBAMIDE PEROXIDE OTIC SOL 15 ML BTL 5 DROP BOTH EARS (20:38)
[2024-03-21] VITALS (10 sets, daily range): BP systolic 91–130; BP diastolic 59–78; PULSE 68–94; RESP 20–28; TEMP 36.6–36.7; O2SAT 98–100
[2024-03-21] MEDS: IPRATROPIUM/ALBUTEROL 3 ML AMPUL.NEB INH ×4 (00:10→17:00)
[2024-03-21] MEDS: LEVOTHYROXINE 50 MCG TABLET GT (05:14)
[2024-03-21] MEDS: acetaZOLAMIDE 250 MG TABLET GT ×2 (08:55→20:37)
[2024-03-21] MEDS: BUMETANIDE 1 MG TABLET GT ×2 (08:56→20:37)
[2024-03-21] MEDS: FAMOTIDINE 20 MG TABLET GT (08:57)
[2024-03-21] MEDS: FERROUS SULFATE 220 MG/5 ML ELIXIR 330 MG GT (08:57)
[2024-03-21] MEDS: MULTIVITAMIN 1 TAB TABLET GT (08:58)
[2024-03-21] MEDS: levETIRAcetam 750 MG TABLET GT ×2 (08:58→20:37)
[2024-03-21] MEDS: VALPROIC ACID 250 MG/5 ML 1000 MG GT (08:58)
[2024-03-21] MEDS: POTASSIUM CHLORIDE 20 MEQ TAB.ER.PRT GT ×2 (08:58→20:38)
--- NOTE | 2024-03-21 11:41 | PC.SS ---
Resident seen by Dr. Beckford/YUNIEL for oral exam. Resident tolerated treatment will with no new recommendations. Resident to continue current care and will be seen by CARLOS annually and PRN.
--- NOTE | 2024-03-21 16:08 | PD.SAPROG ---
Progress Note - SubAcute DIAGNOSIS (1) Chronic respiratory failure with hypoxia: Status: Chronic (2) Dependent on ventilator: Status: Chronic (3) Congestive cardiac failure: Status: Chronic (4) Epilepsy, unspecified, intractable, without status epilepticus: Status: Chronic (5) Anemia: Status: Chronic (6) Hypothyroidism, unspecified: Status: Chronic (7) Developmental disorder of scholastic skills, unspecified: Status: Chronic (8) Age-related osteoporosis without current pathological fracture: Status: Chronic (9) Gastrostomy status: Status: Chronic (10) Tracheostomy status: Status: Chronic SUBJECTIVE Fever:: unchanged (low grade) GI:: none Shortness of Breath:: none GI:: no complaints Pain:: none OBJECTIVE Most recent vital signs: Last Vital Signs Temp 97.9 F 03/21/24 06:00 Pulse 87 03/21/24 11:50 Resp 28 H 03/21/24 11:50 BP 104/68 03/21/24 08:57 Pulse Ox 99 03/21/24 11:50 O2 Del Method Mechanical Ventilation 03/21/24 06:00 FiO2 44 03/21/24 11:50 Neurological:: awake Speech:: nods head and appropriate (Sometimes) Answers questions:: sometimes Respiratory:: lungs clear Cardiovascular: RRR Abdomen: soft and nontender Decubitus:: none Tracheostomy:: to ventilator Feeding per:: G tube Complaints:: none ASSESSMENT & PLAN Assessment: Patient with cognitive function deficits. ventilator dependent. No distress. Stable condition. Diagnosis and treatment reviewed. Pt does not tolerate weaning from Ventilator, attempted very many times in the past.. Pt being slightly more interactive with staff after a long time Plan: Current treatment reviewed and continued
[2024-03-22] VITALS (11 sets, daily range): BP systolic 101–123; BP diastolic 52–76; PULSE 75–115; RESP 18–31; TEMP 36.1–36.7; O2SAT 98–100
[2024-03-22] MEDS: IPRATROPIUM/ALBUTEROL 3 ML AMPUL.NEB INH ×4 (00:59→19:03)
[2024-03-22] MEDS: LEVOTHYROXINE 50 MCG TABLET GT (05:20)
[2024-03-22] MEDS: BUMETANIDE 1 MG TABLET GT ×2 (09:11→21:05)
[2024-03-22] MEDS: acetaZOLAMIDE 250 MG TABLET GT ×2 (09:11→21:02)
[2024-03-22] MEDS: FERROUS SULFATE 220 MG/5 ML ELIXIR 330 MG GT (09:12)
[2024-03-22] MEDS: levETIRAcetam 750 MG TABLET GT ×2 (09:12→21:06)
[2024-03-22] MEDS: FAMOTIDINE 20 MG TABLET GT (09:12)
[2024-03-22] MEDS: CARVEDILOL 3.125 MG TABLET GT (09:12)
[2024-03-22] MEDS: MULTIVITAMIN 1 TAB TABLET GT (09:13)
[2024-03-22] MEDS: VALPROIC ACID 250 MG/5 ML 1000 MG GT (09:13)
[2024-03-22] MEDS: POTASSIUM CHLORIDE 20 MEQ TAB.ER.PRT GT ×2 (09:13→21:07)
[2024-03-22] MEDS: LACTULOSE 10 GM/15 ML SOLUTION GT ×2 (13:37→21:02)
[2024-03-23] VITALS (11 sets, daily range): BP systolic 93–112; BP diastolic 50–65; PULSE 61–91; RESP 16–26; TEMP 36.3–36.8; O2SAT 97–100
[2024-03-23] MEDS: IPRATROPIUM/ALBUTEROL 3 ML AMPUL.NEB INH ×4 (00:41→18:38)
[2024-03-23] MEDS: LACTULOSE 10 GM/15 ML SOLUTION GT ×3 (05:35→21:08)
[2024-03-23] MEDS: LEVOTHYROXINE 50 MCG TABLET GT (05:35)
[2024-03-23] MEDS: acetaZOLAMIDE 250 MG TABLET GT ×2 (08:17→20:46)
[2024-03-23] MEDS: BUMETANIDE 1 MG TABLET GT ×2 (08:18→20:46)
[2024-03-23] MEDS: FAMOTIDINE 20 MG TABLET GT (08:19)
[2024-03-23] MEDS: FERROUS SULFATE 220 MG/5 ML ELIXIR 330 MG GT (08:20)
[2024-03-23] MEDS: levETIRAcetam 750 MG TABLET GT ×2 (08:20→20:46)
[2024-03-23] MEDS: MULTIVITAMIN 1 TAB TABLET GT (08:20)
[2024-03-23] MEDS: VALPROIC ACID 250 MG/5 ML 1000 MG GT (08:21)
[2024-03-23] MEDS: POTASSIUM CHLORIDE 20 MEQ TAB.ER.PRT GT ×2 (08:21→20:47)
[2024-03-24] VITALS (11 sets, daily range): BP systolic 106–123; BP diastolic 64–75; PULSE 68–89; RESP 20–27; TEMP 36.4–36.8; O2SAT 97–99
[2024-03-24] MEDS: IPRATROPIUM/ALBUTEROL 3 ML AMPUL.NEB INH ×4 (00:36→19:00)
[2024-03-24] MEDS: LACTULOSE 10 GM/15 ML SOLUTION GT ×3 (05:15→22:00)
[2024-03-24] MEDS: LEVOTHYROXINE 50 MCG TABLET GT (05:15)
[2024-03-24] MEDS: acetaZOLAMIDE 250 MG TABLET GT ×2 (09:16→20:45)
[2024-03-24] MEDS: CARVEDILOL 3.125 MG TABLET GT (09:17)
[2024-03-24] MEDS: POTASSIUM CHLORIDE 20 MEQ TAB.ER.PRT GT ×2 (09:17→20:45)
[2024-03-24] MEDS: levETIRAcetam 750 MG TABLET GT ×2 (09:17→20:45)
[2024-03-24] MEDS: FERROUS SULFATE 220 MG/5 ML ELIXIR 330 MG GT (09:17)
[2024-03-24] MEDS: BUMETANIDE 1 MG TABLET GT ×2 (09:17→20:45)
[2024-03-24] MEDS: FAMOTIDINE 20 MG TABLET GT (09:17)
[2024-03-24] MEDS: MULTIVITAMIN 1 TAB TABLET GT (09:17)
[2024-03-24] MEDS: VALPROIC ACID 250 MG/5 ML 1000 MG GT (09:17)
--- NOTE | 2024-03-24 14:35 | PC.IP ---
IP Note: At 1020 resident received Moderna Spikevax Lot# [id number] Exp: 10/31/24 to Left deltoid. Staff will monitor for signs of fever and/or discomfort.
[2024-03-25] VITALS (11 sets, daily range): BP systolic 106–133; BP diastolic 56–72; PULSE 61–105; RESP 20–28; TEMP 36.2–36.9; O2SAT 96–100
[2024-03-25] MEDS: LACTULOSE 10 GM/15 ML SOLUTION GT ×3 (05:10→21:24)
[2024-03-25] MEDS: LEVOTHYROXINE 50 MCG TABLET GT (05:10)
[2024-03-25] MEDS: IPRATROPIUM/ALBUTEROL 3 ML AMPUL.NEB INH ×4 (06:58→18:45)
[2024-03-25] MEDS: BUMETANIDE 1 MG TABLET GT ×2 (09:08→21:26)
[2024-03-25] MEDS: CARVEDILOL 3.125 MG TABLET GT (09:08)
[2024-03-25] MEDS: acetaZOLAMIDE 250 MG TABLET GT ×2 (09:08→21:25)
[2024-03-25] MEDS: VALPROIC ACID 250 MG/5 ML 1000 MG GT (09:09)
[2024-03-25] MEDS: FERROUS SULFATE 220 MG/5 ML ELIXIR 330 MG GT (09:09)
[2024-03-25] MEDS: POTASSIUM CHLORIDE 20 MEQ TAB.ER.PRT GT ×2 (09:09→21:26)
[2024-03-25] MEDS: MULTIVITAMIN 1 TAB TABLET GT (09:09)
[2024-03-25] MEDS: levETIRAcetam 750 MG TABLET GT ×2 (09:09→21:26)
[2024-03-25] MEDS: FAMOTIDINE 20 MG TABLET GT (09:09)
--- NOTE | 2024-03-25 14:31 | PD.SAPROG ---
Progress Note - SubAcute DIAGNOSIS (1) Chronic respiratory failure with hypoxia: Status: Chronic (2) Dependent on ventilator: Status: Chronic (3) Congestive cardiac failure: Status: Chronic (4) Epilepsy, unspecified, intractable, without status epilepticus: Status: Chronic (5) Anemia: Status: Chronic (6) Hypothyroidism, unspecified: Status: Chronic (7) Developmental disorder of scholastic skills, unspecified: Status: Chronic (8) Age-related osteoporosis without current pathological fracture: Status: Chronic (9) Gastrostomy status: Status: Chronic (10) Tracheostomy status: Status: Chronic SUBJECTIVE Fever:: unchanged (low grade) GI:: none Shortness of Breath:: none GI:: no complaints Pain:: none OBJECTIVE Most recent vital signs: Last Vital Signs Temp 97.6 F 03/25/24 12:00 Pulse 105 H 03/25/24 12:00 Resp 24 H 03/25/24 12:00 BP 111/56 L 03/25/24 12:00 Pulse Ox 99 03/25/24 11:45 O2 Del Method Mechanical Ventilation 03/25/24 06:00 FiO2 40 03/25/24 11:45 Neurological:: awake Speech:: nods head and appropriate (Sometimes) Answers questions:: sometimes Respiratory:: lungs clear Cardiovascular: RRR Abdomen: soft and nontender Decubitus:: none Tracheostomy:: to ventilator Feeding per:: G tube Complaints:: none ASSESSMENT & PLAN Assessment: Patient with cognitive function deficits. ventilator dependent. No distress. Stable condition. Diagnosis and treatment reviewed. Pt does not tolerate weaning from Ventilator, attempted very many times in the past.. Pt being slightly more interactive with staff after a long time Plan: Current treatment reviewed and continued
[2024-03-25] MEDS: LOSARTAN 25 MG TABLET GT (21:26)
[2024-03-26] VITALS (11 sets, daily range): BP systolic 90–111; BP diastolic 55–70; PULSE 61–105; RESP 20–30; TEMP 36.3–36.4; O2SAT 96–99
[2024-03-26] MEDS: IPRATROPIUM/ALBUTEROL 3 ML AMPUL.NEB INH ×4 (01:03→18:40)
[2024-03-26] MEDS: LACTULOSE 10 GM/15 ML SOLUTION GT ×2 (05:02→14:25)
[2024-03-26] MEDS: LEVOTHYROXINE 50 MCG TABLET GT (05:02)
[2024-03-26] MEDS: acetaZOLAMIDE 250 MG TABLET GT ×2 (08:21→20:39)
[2024-03-26] MEDS: BUMETANIDE 1 MG TABLET GT ×2 (08:21→20:39)
[2024-03-26] MEDS: FAMOTIDINE 20 MG TABLET GT (08:27)
[2024-03-26] MEDS: FERROUS SULFATE 220 MG/5 ML ELIXIR 330 MG GT (08:27)
[2024-03-26] MEDS: levETIRAcetam 750 MG TABLET GT ×2 (08:28→20:40)
[2024-03-26] MEDS: POTASSIUM CHLORIDE 20 MEQ TAB.ER.PRT GT ×2 (08:28→20:40)
[2024-03-26] MEDS: MULTIVITAMIN 1 TAB TABLET GT (08:28)
[2024-03-26] MEDS: VALPROIC ACID 250 MG/5 ML 1000 MG GT (08:29)
[2024-03-27] VITALS (9 sets, daily range): BP systolic 89–127; BP diastolic 56–69; PULSE 64–108; RESP 25–34; TEMP 36.8; O2SAT 96–100
[2024-03-27] MEDS: IPRATROPIUM/ALBUTEROL 3 ML AMPUL.NEB INH ×4 (00:47→18:30)
[2024-03-27] MEDS: LEVOTHYROXINE 50 MCG TABLET GT (05:10)
[2024-03-27] MEDS: BUMETANIDE 1 MG TABLET GT ×2 (08:33→20:56)
[2024-03-27] MEDS: acetaZOLAMIDE 250 MG TABLET GT ×2 (08:33→20:56)
[2024-03-27] MEDS: CARVEDILOL 3.125 MG TABLET GT (08:34)
[2024-03-27] MEDS: FERROUS SULFATE 220 MG/5 ML ELIXIR 330 MG GT (08:34)
[2024-03-27] MEDS: POTASSIUM CHLORIDE 20 MEQ TAB.ER.PRT GT ×2 (08:34→20:56)
[2024-03-27] MEDS: levETIRAcetam 750 MG TABLET GT ×2 (08:34→20:56)
[2024-03-27] MEDS: FAMOTIDINE 20 MG TABLET GT (08:34)
[2024-03-27] MEDS: MULTIVITAMIN 1 TAB TABLET GT (08:34)
[2024-03-27] MEDS: VALPROIC ACID 250 MG/5 ML 1000 MG GT (08:35)
[2024-03-27] MEDS: LACTULOSE 10 GM/15 ML SOLUTION GT ×2 (13:50→21:00)
--- NOTE | 2024-03-27 21:12 | PD.SAPROG ---
Progress Note - SubAcute DIAGNOSIS (1) Chronic respiratory failure with hypoxia: Status: Chronic (2) Dependent on ventilator: Status: Chronic (3) Congestive cardiac failure: Status: Chronic (4) Epilepsy, unspecified, intractable, without status epilepticus: Status: Chronic (5) Anemia: Status: Chronic (6) Hypothyroidism, unspecified: Status: Chronic (7) Developmental disorder of scholastic skills, unspecified: Status: Chronic (8) Age-related osteoporosis without current pathological fracture: Status: Chronic (9) Gastrostomy status: Status: Chronic (10) Tracheostomy status: Status: Chronic SUBJECTIVE Fever:: unchanged (low grade) GI:: none Shortness of Breath:: none GI:: no complaints Pain:: none OBJECTIVE Most recent vital signs: Last Vital Signs Temp 98.3 F 03/27/24 06:00 Pulse 81 03/27/24 20:56 Resp 27 H 03/27/24 12:15 BP 89/56 L 03/27/24 20:56 Pulse Ox 99 03/27/24 12:15 O2 Del Method Mechanical Ventilation 03/27/24 06:00 FiO2 40 03/27/24 12:15 Neurological:: awake Speech:: nods head and appropriate (Sometimes) Answers questions:: sometimes Respiratory:: lungs clear Cardiovascular: RRR Abdomen: soft and nontender Decubitus:: none Tracheostomy:: to ventilator Feeding per:: G tube Complaints:: none ASSESSMENT & PLAN Assessment: Patient with cognitive function deficits. ventilator dependent. No distress. Stable condition. Diagnosis and treatment reviewed. Pt does not tolerate weaning from Ventilator, attempted very many times in the past.. Pt being slightly more interactive with staff after a long time Plan: Current treatment reviewed and continued
[2024-03-28] VITALS (8 sets, daily range): BP systolic 108–132; BP diastolic 64–71; PULSE 77–94; RESP 23–32; TEMP 36.4–36.6; O2SAT 98–100
[2024-03-28] MEDS: IPRATROPIUM/ALBUTEROL 3 ML AMPUL.NEB INH ×4 (00:10→19:56)
[2024-03-28] MEDS: LEVOTHYROXINE 50 MCG TABLET GT (05:10)
[2024-03-28] MEDS: LACTULOSE 10 GM/15 ML SOLUTION GT ×3 (05:10→22:07)
[2024-03-28 08:06] LABS: Alanine Aminotransferase 57 U/L (10-49); Albumin, Serum 3.2 gm/dL (3.4-4.8); Albumin/Globulin Ratio 1.2 (1.2-2.2); Alkaline Phosphatase 127 U/L (46-116); Anion Gap 4 (7-16); Aspartate Amino Transferase 38 U/L (0-34); BUN/Creatinine Ratio 28 Ratio (12-20); Bilirubin,Total 0.4 mg/dL (0.3-1.2); Blood Urea Nitrogen 28 mg/dL (9-23); Calcium 8.8 mg/dL (8.3-10.6); Calcium (Corrected) 9.4 mg/dL (8.5-10.1); Carbon Dioxide 29.1 mMol/L (20.0-31.0); Chloride 104 mMol/L (98-107); Estimated Creatinine Clearance 79.1 mL/min (>60); Globulin 2.6 gm/dL (2.3-3.5); Glucose 119 mg/dL (74-106); Osmolality,Calculated 280 (275-295); Potassium 3.5 mMol/L (3.4-5.1); Sodium 137 mMol/L (136-145); Thyroid Stimulating Hormone 0.95 uIU/mL (0.55-4.78); Total Protein 5.8 gm/dL (5.7-8.2); eGFR > 60 See Note
[2024-03-28] MEDS: acetaZOLAMIDE 250 MG TABLET GT ×2 (08:40→21:32)
[2024-03-28] MEDS: CARVEDILOL 3.125 MG TABLET GT (08:41)
[2024-03-28] MEDS: FERROUS SULFATE 220 MG/5 ML ELIXIR 330 MG GT (08:41)
[2024-03-28] MEDS: FAMOTIDINE 20 MG TABLET GT (08:41)
[2024-03-28] MEDS: BUMETANIDE 1 MG TABLET GT ×2 (08:41→21:32)
[2024-03-28] MEDS: levETIRAcetam 750 MG TABLET GT ×2 (08:42→21:33)
[2024-03-28] MEDS: VALPROIC ACID 250 MG/5 ML 1000 MG GT (08:43)
[2024-03-28] MEDS: MULTIVITAMIN 1 TAB TABLET GT (08:43)
[2024-03-28] MEDS: POTASSIUM CHLORIDE 20 MEQ TAB.ER.PRT GT ×2 (08:43→21:33)
--- NOTE | 2024-03-28 13:19 | PC.NURSE ---
On 03/27/24, left a voice mail message for Jeremi Javier RP, to inform him of the restrictions placed throughout [facility] and DP/SNF for no visitors under the age of 13 years. This is a precautionary measure for the respiratory virus season.
[2024-03-29] VITALS (11 sets, daily range): BP systolic 97–109; BP diastolic 59–71; PULSE 73–96; RESP 21–29; TEMP 36.4–36.7; O2SAT 98–100
[2024-03-29] MEDS: IPRATROPIUM/ALBUTEROL 3 ML AMPUL.NEB INH ×4 (00:28→19:16)
[2024-03-29] MEDS: LACTULOSE 10 GM/15 ML SOLUTION GT ×3 (05:03→21:05)
[2024-03-29] MEDS: LEVOTHYROXINE 50 MCG TABLET GT (05:03)
[2024-03-29] MEDS: acetaZOLAMIDE 250 MG TABLET GT ×2 (08:40→20:26)
[2024-03-29] MEDS: BUMETANIDE 1 MG TABLET GT ×2 (08:40→20:26)
[2024-03-29] MEDS: VALPROIC ACID 250 MG/5 ML 1000 MG GT (08:41)
[2024-03-29] MEDS: POTASSIUM CHLORIDE 20 MEQ TAB.ER.PRT GT ×2 (08:41→20:27)
[2024-03-29] MEDS: levETIRAcetam 750 MG TABLET GT ×2 (08:41→20:27)
[2024-03-29] MEDS: FERROUS SULFATE 220 MG/5 ML ELIXIR 330 MG GT (08:41)
[2024-03-29] MEDS: FAMOTIDINE 20 MG TABLET GT (08:41)
[2024-03-29] MEDS: MULTIVITAMIN 1 TAB TABLET GT (08:41)
[2024-03-30] VITALS (11 sets, daily range): BP systolic 91–130; BP diastolic 60–71; PULSE 59–93; RESP 20–29; TEMP 36.4–36.8; O2SAT 98–100
[2024-03-30] MEDS: IPRATROPIUM/ALBUTEROL 3 ML AMPUL.NEB INH ×4 (01:20→18:40)
[2024-03-30] MEDS: LACTULOSE 10 GM/15 ML SOLUTION GT ×2 (05:10→22:17)
[2024-03-30] MEDS: LEVOTHYROXINE 50 MCG TABLET GT (05:10)
[2024-03-30] MEDS: acetaZOLAMIDE 250 MG TABLET GT ×2 (09:03→20:49)
[2024-03-30] MEDS: BUMETANIDE 1 MG TABLET GT ×2 (09:03→20:49)
[2024-03-30] MEDS: CARVEDILOL 3.125 MG TABLET GT (09:04)
[2024-03-30] MEDS: ACETAMINOPHEN 325 MG TABLET 650 MG GT ×2 (09:04→21:30)
[2024-03-30] MEDS: POTASSIUM CHLORIDE 20 MEQ TAB.ER.PRT GT ×2 (09:04→20:50)
[2024-03-30] MEDS: FAMOTIDINE 20 MG TABLET GT (09:04)
[2024-03-30] MEDS: VALPROIC ACID 250 MG/5 ML 1000 MG GT (09:04)
[2024-03-30] MEDS: MULTIVITAMIN 1 TAB TABLET GT (09:04)
[2024-03-30] MEDS: FERROUS SULFATE 220 MG/5 ML ELIXIR 330 MG GT (09:04)
[2024-03-30] MEDS: levETIRAcetam 750 MG TABLET GT ×2 (09:04→20:49)
[2024-03-31] VITALS (10 sets, daily range): BP systolic 106–131; BP diastolic 65–80; PULSE 67–106; RESP 20–28; TEMP 36.1–36.8; O2SAT 98–99
[2024-03-31] MEDS: IPRATROPIUM/ALBUTEROL 3 ML AMPUL.NEB INH ×4 (01:08→18:20)
[2024-03-31] MEDS: LEVOTHYROXINE 50 MCG TABLET GT (05:21)
[2024-03-31] MEDS: acetaZOLAMIDE 250 MG TABLET GT ×2 (08:58→20:09)
[2024-03-31] MEDS: BUMETANIDE 1 MG TABLET GT ×2 (08:58→20:09)
[2024-03-31] MEDS: MULTIVITAMIN 1 TAB TABLET GT (08:59)
[2024-03-31] MEDS: FERROUS SULFATE 220 MG/5 ML ELIXIR 330 MG GT (08:59)
[2024-03-31] MEDS: FAMOTIDINE 20 MG TABLET GT (08:59)
[2024-03-31] MEDS: levETIRAcetam 750 MG TABLET GT ×2 (08:59→20:10)
[2024-03-31] MEDS: VALPROIC ACID 250 MG/5 ML 1000 MG GT (08:59)
[2024-03-31] MEDS: POTASSIUM CHLORIDE 20 MEQ TAB.ER.PRT GT ×2 (08:59→20:10)
[2024-03-31] MEDS: CARVEDILOL 3.125 MG TABLET GT (08:59)
[2024-03-31] MEDS: LACTULOSE 10 GM/15 ML SOLUTION GT ×2 (13:53→22:43)
--- NOTE | 2024-03-31 15:02 | PC.SS ---
Room visit: Resident is laying in bed with head of the bed elevated with call light properly placed with no signs of distress. Resident has no changes in care or condition, resident remains on ventilator with trach in place and GT for medication and nutrition. He remains conserved by his father Jeremi Javier and is a [facility] client, his family vist a couple times a year as they live in [place]. Resident will remain in current care and will continue to have all subacute care needs met by staff. This SSD will continue to make daily contact with resident and monitor for changes in mood and behavior.
--- NOTE | 2024-03-31 21:02 | PD.SAPROG ---
Progress Note - SubAcute DIAGNOSIS (1) Chronic respiratory failure with hypoxia: Status: Chronic (2) Dependent on ventilator: Status: Chronic (3) Congestive cardiac failure: Status: Chronic (4) Epilepsy, unspecified, intractable, without status epilepticus: Status: Chronic (5) Anemia: Status: Chronic (6) Hypothyroidism, unspecified: Status: Chronic (7) Developmental disorder of scholastic skills, unspecified: Status: Chronic (8) Age-related osteoporosis without current pathological fracture: Status: Chronic (9) Gastrostomy status: Status: Chronic (10) Tracheostomy status: Status: Chronic SUBJECTIVE Fever:: unchanged (low grade) GI:: none Shortness of Breath:: none GI:: no complaints Pain:: none OBJECTIVE Most recent vital signs: Last Vital Signs Temp 98.2 F 03/31/24 05:26 Pulse 79 03/31/24 20:10 Resp 20 03/31/24 12:40 BP 108/65 03/31/24 20:10 Pulse Ox 99 03/31/24 12:40 O2 Del Method Mechanical Ventilation 03/31/24 05:26 FiO2 40 03/31/24 12:40 Neurological:: awake Speech:: nods head and appropriate (Sometimes) Answers questions:: sometimes Respiratory:: lungs clear Cardiovascular: RRR Abdomen: soft and nontender Decubitus:: none Tracheostomy:: to ventilator Feeding per:: G tube Complaints:: none ASSESSMENT & PLAN Assessment: Patient with cognitive function deficits. ventilator dependent. No distress. Stable condition. Diagnosis and treatment reviewed. Pt does not tolerate weaning from Ventilator, attempted very many times in the past.. Pt being slightly more interactive with staff after a long time Plan: Current treatment reviewed and continued
[2024-04-01] VITALS (10 sets, daily range): BP systolic 104–116; BP diastolic 62–74; PULSE 68–81; RESP 20–25; TEMP 35.9–36.1; O2SAT 97–99
[2024-04-01] MEDS: IPRATROPIUM/ALBUTEROL 3 ML AMPUL.NEB INH ×4 (00:10→18:15)
[2024-04-01] MEDS: LEVOTHYROXINE 50 MCG TABLET GT (05:34)
[2024-04-01] MEDS: BUMETANIDE 1 MG TABLET GT ×2 (08:15→20:10)
[2024-04-01] MEDS: acetaZOLAMIDE 250 MG TABLET GT ×2 (08:15→20:10)
[2024-04-01] MEDS: MULTIVITAMIN 1 TAB TABLET GT (08:16)
[2024-04-01] MEDS: FAMOTIDINE 20 MG TABLET GT (08:16)
[2024-04-01] MEDS: CARVEDILOL 3.125 MG TABLET GT (08:16)
[2024-04-01] MEDS: FERROUS SULFATE 220 MG/5 ML ELIXIR 330 MG GT (08:16)
[2024-04-01] MEDS: levETIRAcetam 750 MG TABLET GT ×2 (08:16→20:11)
[2024-04-01] MEDS: VALPROIC ACID 250 MG/5 ML 1000 MG GT (08:17)
[2024-04-01] MEDS: POTASSIUM CHLORIDE 20 MEQ TAB.ER.PRT GT ×2 (08:17→20:11)
[2024-04-01] MEDS: LACTULOSE 10 GM/15 ML SOLUTION GT ×2 (14:18→21:18)
[2024-04-02] VITALS (11 sets, daily range): BP systolic 93–114; BP diastolic 57–70; PULSE 71–99; RESP 20–38; TEMP 36.1–36.5; O2SAT 94–99
[2024-04-02] MEDS: IPRATROPIUM/ALBUTEROL 3 ML AMPUL.NEB INH ×4 (00:10→18:20)
[2024-04-02] MEDS: LEVOTHYROXINE 50 MCG TABLET GT (05:16)
[2024-04-02] MEDS: acetaZOLAMIDE 250 MG TABLET GT ×2 (08:13→20:52)
[2024-04-02] MEDS: BUMETANIDE 1 MG TABLET GT ×2 (08:13→20:52)
[2024-04-02] MEDS: FAMOTIDINE 20 MG TABLET GT (08:14)
[2024-04-02] MEDS: MULTIVITAMIN 1 TAB TABLET GT (08:14)
[2024-04-02] MEDS: levETIRAcetam 750 MG TABLET GT ×2 (08:14→20:52)
[2024-04-02] MEDS: FERROUS SULFATE 220 MG/5 ML ELIXIR 330 MG GT (08:14)
[2024-04-02] MEDS: POTASSIUM CHLORIDE 20 MEQ TAB.ER.PRT GT ×2 (08:14→20:53)
[2024-04-02] MEDS: VALPROIC ACID 250 MG/5 ML 1000 MG GT (08:14)
[2024-04-03] VITALS (11 sets, daily range): BP systolic 93–133; BP diastolic 51–82; PULSE 61–134; RESP 20–30; TEMP 36.2–36.6; O2SAT 95–99
[2024-04-03] MEDS: IPRATROPIUM/ALBUTEROL 3 ML AMPUL.NEB INH ×4 (00:42→18:15)
[2024-04-03] MEDS: LACTULOSE 10 GM/15 ML SOLUTION GT ×2 (05:21→14:17)
[2024-04-03] MEDS: LEVOTHYROXINE 50 MCG TABLET GT (05:21)
[2024-04-03 06:37] LABS: Valporic Acid (Depak)* 6.9 mg/L (50.0-100.0)
[2024-04-03] MEDS: LORazepam 2 MG/ML VIAL IM (07:47)
[2024-04-03] MEDS: acetaZOLAMIDE 250 MG TABLET GT ×2 (08:00→20:27)
[2024-04-03] MEDS: MULTIVITAMIN 1 TAB TABLET GT (08:00)
[2024-04-03] MEDS: VALPROIC ACID 250 MG/5 ML 1000 MG GT (08:00)
[2024-04-03] MEDS: FERROUS SULFATE 220 MG/5 ML ELIXIR 330 MG GT (08:01)
[2024-04-03] MEDS: BUMETANIDE 1 MG TABLET GT ×2 (08:01→20:27)
[2024-04-03] MEDS: FAMOTIDINE 20 MG TABLET GT (08:01)
[2024-04-03] MEDS: levETIRAcetam 750 MG TABLET GT (08:02)
[2024-04-03] MEDS: POTASSIUM CHLORIDE 20 MEQ TAB.ER.PRT GT ×2 (08:02→20:27)
--- NOTE | 2024-04-03 08:11 | PC.NURSE ---
0735-While selling underwriter at bedside resident noted to be having a seizure which lasted approx. 1 minute and 30 seconds. Vital signs as follows, BP 111/61 T 98.1, P70, R 35, 02 sat 97%. Nuero checks started and while assessing resident, resident had 2nd seizure at 0750 which lasted approx. 42 seconds. Administered Ativan IM to left deltoid per order. Resident calm at this time, resting in bed with eyes open, no s/s of distress noted. RN notified. Will continue to monitor for changes.
--- NOTE | 2024-04-03 14:22 | PC.NURSE ---
Resident on Keppra 750 mg BID and valproic acid 1,000 mg daily. Resident noted with episode of seizure this morning and was given ativan 2mg IM x 1. noted to be effective. Latest valproic acid level 6.[address] Lackey was notified with new orders made. No further episodes of seizure noted at this time
[2024-04-03] MEDS: levETIRAcetam 1,000 MG TABLET 1000 MG GT (20:27)
[2024-04-04] VITALS (10 sets, daily range): BP systolic 103–114; BP diastolic 64–71; PULSE 72–101; RESP 20–37; TEMP 36.3–36.4; O2SAT 96–99
[2024-04-04] MEDS: IPRATROPIUM/ALBUTEROL 3 ML AMPUL.NEB INH ×4 (00:01→19:05)
[2024-04-04] MEDS: LEVOTHYROXINE 50 MCG TABLET GT (05:17)
[2024-04-04] MEDS: LACTULOSE 10 GM/15 ML SOLUTION GT ×2 (05:17→14:18)
[2024-04-04] MEDS: BUMETANIDE 1 MG TABLET GT ×2 (08:11→20:13)
[2024-04-04] MEDS: acetaZOLAMIDE 250 MG TABLET GT ×2 (08:11→20:13)
[2024-04-04] MEDS: levETIRAcetam 750 MG TABLET GT (08:12)
[2024-04-04] MEDS: MULTIVITAMIN 1 TAB TABLET GT (08:12)
[2024-04-04] MEDS: FAMOTIDINE 20 MG TABLET GT (08:12)
[2024-04-04] MEDS: FERROUS SULFATE 220 MG/5 ML ELIXIR 330 MG GT (08:12)
[2024-04-04] MEDS: POTASSIUM CHLORIDE 20 MEQ TAB.ER.PRT GT ×2 (08:13→20:14)
[2024-04-04] MEDS: VALPROIC ACID 250 MG/5 ML 1000 MG GT (08:14)
[2024-04-04] MEDS: guaiFENesin Liq 100 MG/5 ML LIQUID GT ×2 (08:15→16:29)
[2024-04-04] MEDS: ACETAMINOPHEN 325 MG TABLET 650 MG GT ×2 (08:15→16:27)
--- NOTE | 2024-04-04 17:21 | PC.NURSE ---
No seizure activity witness this shift. Vital signs stable within parameters. Continue with neurochecks as ordered. Will continue to monitor for any changes
[2024-04-04] MEDS: levETIRAcetam 1,000 MG TABLET 1000 MG GT (20:13)
--- NOTE | 2024-04-04 22:01 | PD.SAPROG ---
Progress Note - SubAcute DIAGNOSIS (1) Chronic respiratory failure with hypoxia: Status: Chronic (2) Dependent on ventilator: Status: Chronic (3) Congestive cardiac failure: Status: Chronic (4) Epilepsy, unspecified, intractable, without status epilepticus: Status: Chronic (5) Anemia: Status: Chronic (6) Hypothyroidism, unspecified: Status: Chronic (7) Developmental disorder of scholastic skills, unspecified: Status: Chronic (8) Age-related osteoporosis without current pathological fracture: Status: Chronic (9) Gastrostomy status: Status: Chronic (10) Tracheostomy status: Status: Chronic SUBJECTIVE Fever:: unchanged (low grade) GI:: none Shortness of Breath:: none GI:: no complaints Pain:: none OBJECTIVE Most recent vital signs: Last Vital Signs Temp 97.6 F 04/04/24 11:51 Pulse 101 H 04/04/24 20:14 Resp 22 H 04/04/24 13:15 BP 106/64 04/04/24 20:14 Pulse Ox 99 04/04/24 13:15 O2 Del Method Blow-by 04/04/24 11:51 FiO2 40 04/04/24 13:15 Neurological:: awake Speech:: nods head and appropriate (Sometimes) Answers questions:: sometimes Respiratory:: lungs clear Cardiovascular: RRR Abdomen: soft and nontender Decubitus:: none Tracheostomy:: to ventilator Feeding per:: G tube Complaints:: none ASSESSMENT & PLAN Assessment: Patient with cognitive function deficits. ventilator dependent. No distress. Stable condition. Diagnosis and treatment reviewed. Pt does not tolerate weaning from Ventilator, attempted very many times in the past.. Pt being slightly more interactive with staff after a long time Plan: Current treatment reviewed and continued
[2024-04-05] VITALS (8 sets, daily range): BP systolic 109–122; BP diastolic 67–70; PULSE 74–106; RESP 26–31; TEMP 36.6; O2SAT 98–99
[2024-04-05] MEDS: IPRATROPIUM/ALBUTEROL 3 ML AMPUL.NEB INH ×4 (01:06→18:38)
[2024-04-05] MEDS: LACTULOSE 10 GM/15 ML SOLUTION GT ×3 (05:10→21:13)
[2024-04-05] MEDS: LEVOTHYROXINE 50 MCG TABLET GT (05:10)
[2024-04-05] MEDS: CARVEDILOL 3.125 MG TABLET GT (09:20)
[2024-04-05] MEDS: acetaZOLAMIDE 250 MG TABLET GT ×2 (09:20→20:31)
[2024-04-05] MEDS: BUMETANIDE 1 MG TABLET GT ×2 (09:20→20:32)
[2024-04-05] MEDS: FERROUS SULFATE 220 MG/5 ML ELIXIR 330 MG GT (09:21)
[2024-04-05] MEDS: FAMOTIDINE 20 MG TABLET GT (09:21)
[2024-04-05] MEDS: levETIRAcetam 750 MG TABLET GT (09:21)
[2024-04-05] MEDS: VALPROIC ACID 250 MG/5 ML 1000 MG GT (09:21)
[2024-04-05] MEDS: MULTIVITAMIN 1 TAB TABLET GT (09:21)
[2024-04-05] MEDS: POTASSIUM CHLORIDE 20 MEQ TAB.ER.PRT GT ×2 (09:21→20:32)
[2024-04-05] MEDS: levETIRAcetam 1,000 MG TABLET 1000 MG GT (20:32)
[2024-04-06] VITALS (10 sets, daily range): BP systolic 101–123; BP diastolic 65–77; PULSE 79–99; RESP 26–31; TEMP 36.3–36.7; O2SAT 98–100
[2024-04-06] MEDS: IPRATROPIUM/ALBUTEROL 3 ML AMPUL.NEB INH ×3 (01:10→12:03)
[2024-04-06] MEDS: LEVOTHYROXINE 50 MCG TABLET GT (05:10)
[2024-04-06] MEDS: LACTULOSE 10 GM/15 ML SOLUTION GT ×3 (05:10→21:19)
[2024-04-06] MEDS: acetaZOLAMIDE 250 MG TABLET GT ×2 (09:11→21:19)
[2024-04-06] MEDS: FERROUS SULFATE 220 MG/5 ML ELIXIR 330 MG GT (09:12)
[2024-04-06] MEDS: MULTIVITAMIN 1 TAB TABLET GT (09:12)
[2024-04-06] MEDS: CARVEDILOL 3.125 MG TABLET GT (09:12)
[2024-04-06] MEDS: levETIRAcetam 750 MG TABLET GT (09:12)
[2024-04-06] MEDS: FAMOTIDINE 20 MG TABLET GT (09:12)
[2024-04-06] MEDS: BUMETANIDE 1 MG TABLET GT ×2 (09:12→21:19)
[2024-04-06] MEDS: POTASSIUM CHLORIDE 20 MEQ TAB.ER.PRT GT ×2 (09:13→21:19)
[2024-04-06] MEDS: VALPROIC ACID 250 MG/5 ML 1000 MG GT (09:13)
[2024-04-06] MEDS: LOSARTAN 25 MG TABLET GT (21:19)
[2024-04-06] MEDS: levETIRAcetam 1,000 MG TABLET 1000 MG GT (21:19)
[2024-04-07] VITALS (10 sets, daily range): BP systolic 90–105; BP diastolic 60–69; PULSE 64–994; RESP 20–30; TEMP 36.3–36.9; O2SAT 98–100
[2024-04-07] MEDS: IPRATROPIUM/ALBUTEROL 3 ML AMPUL.NEB INH ×5 (00:30→19:34)
[2024-04-07] MEDS: LEVOTHYROXINE 50 MCG TABLET GT (05:38)
[2024-04-07] MEDS: LACTULOSE 10 GM/15 ML SOLUTION GT ×2 (05:38→21:04)
[2024-04-07] MEDS: BUMETANIDE 1 MG TABLET GT ×2 (09:24→21:04)
[2024-04-07] MEDS: acetaZOLAMIDE 250 MG TABLET GT ×2 (09:24→21:03)
[2024-04-07] MEDS: FERROUS SULFATE 220 MG/5 ML ELIXIR 330 MG GT (09:25)
[2024-04-07] MEDS: MULTIVITAMIN 1 TAB TABLET GT (09:25)
[2024-04-07] MEDS: levETIRAcetam 750 MG TABLET GT (09:25)
[2024-04-07] MEDS: FAMOTIDINE 20 MG TABLET GT (09:25)
[2024-04-07] MEDS: POTASSIUM CHLORIDE 20 MEQ TAB.ER.PRT GT ×2 (09:25→21:04)
[2024-04-07] MEDS: VALPROIC ACID 250 MG/5 ML 1000 MG GT (09:25)
[2024-04-07] MEDS: levETIRAcetam 1,000 MG TABLET 1000 MG GT (21:04)
[2024-04-08] VITALS (11 sets, daily range): BP systolic 98–119; BP diastolic 65–79; PULSE 79–89; RESP 20–29; TEMP 36.4–36.7; O2SAT 98–100
[2024-04-08] MEDS: IPRATROPIUM/ALBUTEROL 3 ML AMPUL.NEB INH ×4 (00:55→19:16)
[2024-04-08] MEDS: LACTULOSE 10 GM/15 ML SOLUTION GT ×3 (05:50→21:00)
[2024-04-08] MEDS: LEVOTHYROXINE 50 MCG TABLET GT (05:50)
[2024-04-08] MEDS: acetaZOLAMIDE 250 MG TABLET GT ×2 (08:48→20:15)
[2024-04-08] MEDS: FAMOTIDINE 20 MG TABLET GT (08:49)
[2024-04-08] MEDS: VALPROIC ACID 250 MG/5 ML 1000 MG GT (08:49)
[2024-04-08] MEDS: FERROUS SULFATE 220 MG/5 ML ELIXIR 330 MG GT (08:49)
[2024-04-08] MEDS: BUMETANIDE 1 MG TABLET GT ×2 (08:49→20:15)
[2024-04-08] MEDS: POTASSIUM CHLORIDE 20 MEQ TAB.ER.PRT GT ×2 (08:49→20:19)
[2024-04-08] MEDS: levETIRAcetam 750 MG TABLET GT (08:49)
[2024-04-08] MEDS: MULTIVITAMIN 1 TAB TABLET GT (08:49)
--- NOTE | 2024-04-08 11:25 | PD.SAPROG ---
Progress Note - SubAcute DIAGNOSIS (1) Chronic respiratory failure with hypoxia: Status: Chronic (2) Dependent on ventilator: Status: Chronic (3) Congestive cardiac failure: Status: Chronic (4) Epilepsy, unspecified, intractable, without status epilepticus: Status: Chronic (5) Anemia: Status: Chronic (6) Hypothyroidism, unspecified: Status: Chronic (7) Developmental disorder of scholastic skills, unspecified: Status: Chronic (8) Age-related osteoporosis without current pathological fracture: Status: Chronic (9) Gastrostomy status: Status: Chronic (10) Tracheostomy status: Status: Chronic SUBJECTIVE Fever:: unchanged (low grade) GI:: none Shortness of Breath:: none GI:: no complaints Pain:: none OBJECTIVE Most recent vital signs: Last Vital Signs Temp 97.3 F 04/09/24 06:00 Pulse 87 04/09/24 08:18 Resp 24 H 04/09/24 06:40 BP 115/74 04/09/24 08:18 Pulse Ox 100 04/09/24 06:40 O2 Del Method Mechanical Ventilation 04/08/24 17:44 FiO2 34 04/09/24 06:40 Neurological:: awake Speech:: nods head and appropriate (Sometimes) Answers questions:: sometimes Respiratory:: lungs clear Cardiovascular: RRR Abdomen: soft and nontender Decubitus:: none Tracheostomy:: to ventilator Feeding per:: G tube Complaints:: none ASSESSMENT & PLAN Assessment: Patient with cognitive function deficits. ventilator dependent. No distress. Stable condition. Diagnosis and treatment reviewed. Pt does not tolerate weaning from Ventilator, attempted very many times in the past.. Pt being slightly more interactive with staff after a long time Plan: Current treatment reviewed and continued
[2024-04-08] MEDS: levETIRAcetam 1,000 MG TABLET 1000 MG GT (20:15)
[2024-04-09] VITALS (12 sets, daily range): BP systolic 100–119; BP diastolic 62–77; PULSE 77–92; RESP 20–32; TEMP 36.2–36.4; O2SAT 98–100
[2024-04-09] MEDS: IPRATROPIUM/ALBUTEROL 3 ML AMPUL.NEB INH ×4 (00:13→18:30)
[2024-04-09] MEDS: LACTULOSE 10 GM/15 ML SOLUTION GT ×3 (05:50→21:11)
[2024-04-09] MEDS: LEVOTHYROXINE 50 MCG TABLET GT (05:50)
[2024-04-09] MEDS: acetaZOLAMIDE 250 MG TABLET GT ×2 (08:17→20:32)
[2024-04-09] MEDS: BUMETANIDE 1 MG TABLET GT ×2 (08:17→20:32)
[2024-04-09] MEDS: CARVEDILOL 3.125 MG TABLET GT (08:18)
[2024-04-09] MEDS: FERROUS SULFATE 220 MG/5 ML ELIXIR 330 MG GT (08:19)
[2024-04-09] MEDS: FAMOTIDINE 20 MG TABLET GT (08:19)
[2024-04-09] MEDS: MULTIVITAMIN 1 TAB TABLET GT (08:20)
[2024-04-09] MEDS: levETIRAcetam 750 MG TABLET GT (08:20)
[2024-04-09] MEDS: POTASSIUM CHLORIDE 20 MEQ TAB.ER.PRT GT ×2 (08:20→20:33)
[2024-04-09] MEDS: VALPROIC ACID 250 MG/5 ML 1000 MG GT (08:21)
[2024-04-09] MEDS: levETIRAcetam 1,000 MG TABLET 1000 MG GT (20:32)
[2024-04-10] VITALS (10 sets, daily range): BP systolic 93–119; BP diastolic 58–76; PULSE 76–105; RESP 24–30; TEMP 36.3–36.6; O2SAT 96–100
[2024-04-10] MEDS: IPRATROPIUM/ALBUTEROL 3 ML AMPUL.NEB INH ×4 (00:40→19:46)
[2024-04-10] MEDS: LEVOTHYROXINE 50 MCG TABLET GT (05:10)
[2024-04-10] MEDS: acetaZOLAMIDE 250 MG TABLET GT ×2 (08:42→20:30)
[2024-04-10] MEDS: BUMETANIDE 1 MG TABLET GT ×2 (08:43→20:30)
[2024-04-10] MEDS: CARVEDILOL 3.125 MG TABLET GT (08:44)
[2024-04-10] MEDS: FERROUS SULFATE 220 MG/5 ML ELIXIR 330 MG GT (08:45)
[2024-04-10] MEDS: FAMOTIDINE 20 MG TABLET GT (08:45)
[2024-04-10] MEDS: levETIRAcetam 750 MG TABLET GT (08:47)
[2024-04-10] MEDS: POTASSIUM CHLORIDE 20 MEQ TAB.ER.PRT GT ×2 (08:47→20:30)
[2024-04-10] MEDS: MULTIVITAMIN 1 TAB TABLET GT (08:47)
[2024-04-10] MEDS: VALPROIC ACID 250 MG/5 ML 1000 MG GT (08:48)
[2024-04-10] MEDS: LACTULOSE 10 GM/15 ML SOLUTION GT (13:55)
[2024-04-10] MEDS: levETIRAcetam 1,000 MG TABLET 1000 MG GT (20:30)
[2024-04-10] MEDS: LOSARTAN 25 MG TABLET GT (20:30)
[2024-04-11] VITALS (12 sets, daily range): BP systolic 79–109; BP diastolic 55–69; PULSE 71–101; RESP 22–28; TEMP 36.1–36.9; O2SAT 98–100
[2024-04-11] MEDS: IPRATROPIUM/ALBUTEROL 3 ML AMPUL.NEB INH ×4 (01:13→18:30)
[2024-04-11] MEDS: LEVOTHYROXINE 50 MCG TABLET GT (05:10)
[2024-04-11] MEDS: acetaZOLAMIDE 250 MG TABLET GT ×2 (09:09→20:42)
[2024-04-11] MEDS: BUMETANIDE 1 MG TABLET GT ×2 (09:10→20:42)
[2024-04-11] MEDS: FAMOTIDINE 20 MG TABLET GT (09:11)
[2024-04-11] MEDS: VALPROIC ACID 250 MG/5 ML 1000 MG GT (09:11)
[2024-04-11] MEDS: MULTIVITAMIN 1 TAB TABLET GT (09:11)
[2024-04-11] MEDS: levETIRAcetam 750 MG TABLET GT (09:11)
[2024-04-11] MEDS: POTASSIUM CHLORIDE 20 MEQ TAB.ER.PRT GT ×2 (09:11→20:42)
[2024-04-11] MEDS: FERROUS SULFATE 220 MG/5 ML ELIXIR 330 MG GT (09:11)
[2024-04-11] MEDS: LACTULOSE 10 GM/15 ML SOLUTION GT ×2 (14:09→21:11)
[2024-04-11] MEDS: levETIRAcetam 1,000 MG TABLET 1000 MG GT (20:42)
[2024-04-12] VITALS (11 sets, daily range): BP systolic 96–119; BP diastolic 62–70; PULSE 67–108; RESP 22–32; TEMP 36.5–36.6; O2SAT 98–100
[2024-04-12] MEDS: IPRATROPIUM/ALBUTEROL 3 ML AMPUL.NEB INH ×4 (00:48→18:09)
[2024-04-12] MEDS: LACTULOSE 10 GM/15 ML SOLUTION GT ×3 (06:00→21:10)
[2024-04-12] MEDS: LEVOTHYROXINE 50 MCG TABLET GT (06:00)
[2024-04-12] MEDS: acetaZOLAMIDE 250 MG TABLET GT ×2 (09:32→20:39)
[2024-04-12] MEDS: BUMETANIDE 1 MG TABLET GT ×2 (09:32→20:39)
[2024-04-12] MEDS: FAMOTIDINE 20 MG TABLET GT (09:34)
[2024-04-12] MEDS: FERROUS SULFATE 220 MG/5 ML ELIXIR 330 MG GT (09:35)
[2024-04-12] MEDS: levETIRAcetam 750 MG TABLET GT (09:35)
[2024-04-12] MEDS: MULTIVITAMIN 1 TAB TABLET GT (09:35)
[2024-04-12] MEDS: POTASSIUM CHLORIDE 20 MEQ TAB.ER.PRT GT ×2 (09:36→20:39)
[2024-04-12] MEDS: VALPROIC ACID 250 MG/5 ML 1000 MG GT (09:36)
[2024-04-12] MEDS: levETIRAcetam 1,000 MG TABLET 1000 MG GT (20:39)
--- NOTE | 2024-04-12 22:29 | PD.SAPROG ---
Progress Note - SubAcute DIAGNOSIS (1) Chronic respiratory failure with hypoxia: Status: Chronic (2) Dependent on ventilator: Status: Chronic (3) Congestive cardiac failure: Status: Chronic (4) Epilepsy, unspecified, intractable, without status epilepticus: Status: Chronic (5) Anemia: Status: Chronic (6) Hypothyroidism, unspecified: Status: Chronic (7) Developmental disorder of scholastic skills, unspecified: Status: Chronic (8) Age-related osteoporosis without current pathological fracture: Status: Chronic (9) Gastrostomy status: Status: Chronic (10) Tracheostomy status: Status: Chronic SUBJECTIVE Fever:: unchanged (low grade) GI:: none Shortness of Breath:: none GI:: no complaints Pain:: none OBJECTIVE Most recent vital signs: Last Vital Signs Temp 97.8 F 04/12/24 17:33 Pulse 99 04/12/24 20:39 Resp 28 H 04/12/24 17:33 BP 98/62 04/12/24 20:39 Pulse Ox 100 04/12/24 17:33 O2 Del Method Mechanical Ventilation 04/12/24 17:33 FiO2 33 04/12/24 12:10 Neurological:: awake Speech:: nods head and appropriate (Sometimes) Answers questions:: sometimes Respiratory:: lungs clear Cardiovascular: RRR Abdomen: soft and nontender Decubitus:: none Tracheostomy:: to ventilator Feeding per:: G tube Complaints:: none ASSESSMENT & PLAN Assessment: Patient with cognitive function deficits. ventilator dependent. No distress. Stable condition. Diagnosis and treatment reviewed. Pt does not tolerate weaning from Ventilator, attempted very many times in the past.. Pt being slightly more interactive with staff after a long time Plan: Current treatment reviewed and continued
[2024-04-13] VITALS (10 sets, daily range): BP systolic 94–124; BP diastolic 62–76; PULSE 75–109; RESP 20–28; TEMP 36.5–37.1; O2SAT 96–99
[2024-04-13] MEDS: IPRATROPIUM/ALBUTEROL 3 ML AMPUL.NEB INH ×4 (01:01→18:53)
[2024-04-13] MEDS: acetaZOLAMIDE 250 MG TABLET GT ×2 (08:53→20:29)
[2024-04-13] MEDS: BUMETANIDE 1 MG TABLET GT ×2 (08:53→20:29)
[2024-04-13] MEDS: FERROUS SULFATE 220 MG/5 ML ELIXIR 330 MG GT (08:54)
[2024-04-13] MEDS: FAMOTIDINE 20 MG TABLET GT (08:54)
[2024-04-13] MEDS: levETIRAcetam 750 MG TABLET GT (08:56)
[2024-04-13] MEDS: POTASSIUM CHLORIDE 20 MEQ TAB.ER.PRT GT ×2 (08:56→20:29)
[2024-04-13] MEDS: MULTIVITAMIN 1 TAB TABLET GT (08:56)
[2024-04-13] MEDS: VALPROIC ACID 250 MG/5 ML 1000 MG GT (08:57)
[2024-04-13] MEDS: ACETAMINOPHEN 325 MG TABLET 650 MG GT (20:29)
[2024-04-13] MEDS: levETIRAcetam 1,000 MG TABLET 1000 MG GT (20:29)
[2024-04-13] MEDS: LACTULOSE 10 GM/15 ML SOLUTION GT (21:26)
[2024-04-14] VITALS (11 sets, daily range): BP systolic 95–125; BP diastolic 59–77; PULSE 76–103; RESP 20–28; TEMP 36.3–36.6; O2SAT 96–100
[2024-04-14] MEDS: IPRATROPIUM/ALBUTEROL 3 ML AMPUL.NEB INH ×4 (01:13→19:30)
[2024-04-14] MEDS: LACTULOSE 10 GM/15 ML SOLUTION GT ×3 (05:33→21:18)
[2024-04-14] MEDS: LEVOTHYROXINE 50 MCG TABLET GT (05:34)
[2024-04-14] MEDS: acetaZOLAMIDE 250 MG TABLET GT ×2 (08:55→20:14)
[2024-04-14] MEDS: BUMETANIDE 1 MG TABLET GT ×2 (08:55→20:14)
[2024-04-14] MEDS: levETIRAcetam 750 MG TABLET GT (08:56)
[2024-04-14] MEDS: MULTIVITAMIN 1 TAB TABLET GT (08:56)
[2024-04-14] MEDS: FAMOTIDINE 20 MG TABLET GT (08:56)
[2024-04-14] MEDS: POTASSIUM CHLORIDE 20 MEQ TAB.ER.PRT GT ×2 (08:57→20:14)
[2024-04-14] MEDS: VALPROIC ACID 250 MG/5 ML 1000 MG GT (08:57)
[2024-04-14] MEDS: FERROUS SULFATE 220 MG/5 ML ELIXIR 330 MG GT (08:58)
--- NOTE | 2024-04-14 15:45 | PC.SS ---
Room visit: Resident is laying in bed with head of the bed elevated with call light properly placed with no signs of distress. Resident remains on ventilator with trach in place and GT for medication and nutrition. Resident remains conserved by his father Jeremi Javier, he is unable to make decisions for self. He will remain in current care as he has no changes in care or condition. This SSD will continue to make contact with resident and monitor for changes in mood and behavior.
[2024-04-14] MEDS: LOSARTAN 25 MG TABLET GT (20:14)
[2024-04-14] MEDS: levETIRAcetam 1,000 MG TABLET 1000 MG GT (20:14)
[2024-04-15] VITALS (10 sets, daily range): BP systolic 105–120; BP diastolic 62–69; PULSE 76–102; RESP 20–26; TEMP 36.3–36.6; O2SAT 97–100
[2024-04-15] MEDS: IPRATROPIUM/ALBUTEROL 3 ML AMPUL.NEB INH ×4 (01:18→19:57)
[2024-04-15] MEDS: LACTULOSE 10 GM/15 ML SOLUTION GT ×3 (05:31→20:56)
[2024-04-15] MEDS: LEVOTHYROXINE 50 MCG TABLET GT (05:31)
[2024-04-15] MEDS: FAMOTIDINE 20 MG TABLET GT (09:19)
[2024-04-15] MEDS: BUMETANIDE 1 MG TABLET GT ×2 (09:19→20:56)
[2024-04-15] MEDS: acetaZOLAMIDE 250 MG TABLET GT ×2 (09:19→20:56)
[2024-04-15] MEDS: levETIRAcetam 750 MG TABLET GT (09:19)
[2024-04-15] MEDS: POTASSIUM CHLORIDE 20 MEQ TAB.ER.PRT GT ×2 (09:19→20:56)
[2024-04-15] MEDS: FERROUS SULFATE 220 MG/5 ML ELIXIR 330 MG GT (09:19)
[2024-04-15] MEDS: MULTIVITAMIN 1 TAB TABLET GT (09:19)
[2024-04-15] MEDS: CARVEDILOL 3.125 MG TABLET GT (09:19)
[2024-04-15] MEDS: VALPROIC ACID 250 MG/5 ML 1000 MG GT (09:19)
[2024-04-15] MEDS: ACETAMINOPHEN 325 MG TABLET 650 MG GT (20:50)
[2024-04-15] MEDS: levETIRAcetam 1,000 MG TABLET 1000 MG GT (20:56)
[2024-04-16] VITALS (9 sets, daily range): BP systolic 101–126; BP diastolic 67–88; PULSE 73–104; RESP 20–30; TEMP 36.3–36.5; O2SAT 98–100
[2024-04-16] MEDS: IPRATROPIUM/ALBUTEROL 3 ML AMPUL.NEB INH ×4 (01:48→18:30)
[2024-04-16] MEDS: LACTULOSE 10 GM/15 ML SOLUTION GT ×3 (05:20→22:31)
[2024-04-16] MEDS: LEVOTHYROXINE 50 MCG TABLET GT (05:21)
[2024-04-16] MEDS: acetaZOLAMIDE 250 MG TABLET GT ×2 (08:36→20:34)
[2024-04-16] MEDS: BUMETANIDE 1 MG TABLET GT ×2 (08:37→20:34)
[2024-04-16] MEDS: CARVEDILOL 3.125 MG TABLET GT (08:37)
[2024-04-16] MEDS: FAMOTIDINE 20 MG TABLET GT (08:37)
[2024-04-16] MEDS: levETIRAcetam 750 MG TABLET GT (08:38)
[2024-04-16] MEDS: FERROUS SULFATE 220 MG/5 ML ELIXIR 330 MG GT (08:38)
[2024-04-16] MEDS: MULTIVITAMIN 1 TAB TABLET GT (08:38)
[2024-04-16] MEDS: POTASSIUM CHLORIDE 20 MEQ TAB.ER.PRT GT ×2 (08:39→20:35)
[2024-04-16] MEDS: VALPROIC ACID 250 MG/5 ML 1000 MG GT (08:39)
--- NOTE | 2024-04-16 16:14 | PD.SAPROG ---
Progress Note - SubAcute DIAGNOSIS (1) Chronic respiratory failure with hypoxia: Status: Chronic (2) Dependent on ventilator: Status: Chronic (3) Congestive cardiac failure: Status: Chronic (4) Epilepsy, unspecified, intractable, without status epilepticus: Status: Chronic (5) Anemia: Status: Chronic (6) Hypothyroidism, unspecified: Status: Chronic (7) Developmental disorder of scholastic skills, unspecified: Status: Chronic (8) Age-related osteoporosis without current pathological fracture: Status: Chronic (9) Gastrostomy status: Status: Chronic (10) Tracheostomy status: Status: Chronic SUBJECTIVE Fever:: unchanged (low grade) GI:: none Shortness of Breath:: none GI:: no complaints Pain:: none OBJECTIVE Most recent vital signs: Last Vital Signs Temp 97.4 F 04/16/24 05:33 Pulse 77 04/16/24 12:10 Resp 24 H 04/16/24 12:10 BP 126/88 H 04/16/24 08:37 Pulse Ox 98 04/16/24 12:10 O2 Del Method Mechanical Ventilation 04/14/24 17:39 FiO2 34 04/16/24 12:10 Neurological:: awake Speech:: nods head and appropriate (Sometimes) Answers questions:: sometimes Respiratory:: lungs clear Cardiovascular: RRR Abdomen: soft and nontender Decubitus:: none Tracheostomy:: to ventilator Feeding per:: G tube Complaints:: none ASSESSMENT & PLAN Assessment: Patient with cognitive function deficits. ventilator dependent. No distress. Stable condition. Diagnosis and treatment reviewed. Pt does not tolerate weaning from Ventilator, attempted very many times in the past.. Pt being slightly more interactive with staff after a long time. No new issues Plan: Current treatment reviewed and continued
[2024-04-16] MEDS: levETIRAcetam 1,000 MG TABLET 1000 MG GT (20:35)
[2024-04-16] MEDS: ACETAMINOPHEN 325 MG TABLET 650 MG GT (20:36)
[2024-04-17] VITALS (10 sets, daily range): BP systolic 96–127; BP diastolic 62–77; PULSE 65–93; RESP 20–26; TEMP 36.4–36.6; O2SAT 98–100
[2024-04-17] MEDS: IPRATROPIUM/ALBUTEROL 3 ML AMPUL.NEB INH ×4 (01:55→19:08)
[2024-04-17] MEDS: LEVOTHYROXINE 50 MCG TABLET GT (06:00)
[2024-04-17] MEDS: BUMETANIDE 1 MG TABLET GT ×2 (09:10→20:35)
[2024-04-17] MEDS: FAMOTIDINE 20 MG TABLET GT (09:10)
[2024-04-17] MEDS: VALPROIC ACID 250 MG/5 ML 1000 MG GT (09:11)
[2024-04-17] MEDS: POTASSIUM CHLORIDE 20 MEQ TAB.ER.PRT GT ×2 (09:11→20:36)
[2024-04-17] MEDS: FERROUS SULFATE 220 MG/5 ML ELIXIR 330 MG GT (09:11)
[2024-04-17] MEDS: MULTIVITAMIN 1 TAB TABLET GT (09:11)
[2024-04-17] MEDS: levETIRAcetam 750 MG TABLET GT (09:11)
[2024-04-17] MEDS: guaiFENesin Liq 100 MG/5 ML LIQUID GT (09:13)
[2024-04-17] MEDS: LACTULOSE 10 GM/15 ML SOLUTION GT (13:28)
--- NOTE | 2024-04-17 16:19 | PC.SS ---
Resident seen by Card Assembler Dr. Dickerson for annual optometry consultation. Resident tolerated treatment well, no new orders or recommendations, resident will continue current care.
[2024-04-17] MEDS: levETIRAcetam 1,000 MG TABLET 1000 MG GT (20:35)
[2024-04-17] MEDS: acetaZOLAMIDE 250 MG TABLET GT (20:35)
[2024-04-18] VITALS (12 sets, daily range): BP systolic 100–118; BP diastolic 60–74; PULSE 68–92; RESP 20–28; TEMP 36.1–36.4; O2SAT 97–100
[2024-04-18] MEDS: IPRATROPIUM/ALBUTEROL 3 ML AMPUL.NEB INH ×4 (00:12→18:40)
[2024-04-18] MEDS: LEVOTHYROXINE 50 MCG TABLET GT (05:25)
[2024-04-18] MEDS: BUMETANIDE 1 MG TABLET GT ×2 (09:00→20:42)
[2024-04-18] MEDS: acetaZOLAMIDE 250 MG TABLET GT ×2 (09:00→20:42)
[2024-04-18] MEDS: FERROUS SULFATE 220 MG/5 ML ELIXIR 330 MG GT (09:01)
[2024-04-18] MEDS: FAMOTIDINE 20 MG TABLET GT (09:01)
[2024-04-18] MEDS: POTASSIUM CHLORIDE 20 MEQ TAB.ER.PRT GT ×2 (09:02→20:43)
[2024-04-18] MEDS: levETIRAcetam 750 MG TABLET GT (09:02)
[2024-04-18] MEDS: MULTIVITAMIN 1 TAB TABLET GT (09:02)
[2024-04-18] MEDS: VALPROIC ACID 250 MG/5 ML 1000 MG GT (09:03)
[2024-04-18] MEDS: LACTULOSE 10 GM/15 ML SOLUTION GT ×2 (13:14→21:12)
[2024-04-18] MEDS: levETIRAcetam 1,000 MG TABLET 1000 MG GT (20:43)
[2024-04-19] VITALS (10 sets, daily range): BP systolic 96–134; BP diastolic 60–83; PULSE 70–98; RESP 20–31; TEMP 36–36.9; O2SAT 97–100
[2024-04-19] MEDS: IPRATROPIUM/ALBUTEROL 3 ML AMPUL.NEB INH ×4 (01:05→19:14)
[2024-04-19] MEDS: LACTULOSE 10 GM/15 ML SOLUTION GT ×3 (05:15→21:21)
[2024-04-19] MEDS: LEVOTHYROXINE 50 MCG TABLET GT (05:15)
[2024-04-19] MEDS: acetaZOLAMIDE 250 MG TABLET GT ×2 (09:17→20:44)
[2024-04-19] MEDS: FAMOTIDINE 20 MG TABLET GT (09:18)
[2024-04-19] MEDS: levETIRAcetam 750 MG TABLET GT (09:18)
[2024-04-19] MEDS: CARVEDILOL 3.125 MG TABLET GT (09:18)
[2024-04-19] MEDS: BUMETANIDE 1 MG TABLET GT ×2 (09:18→20:44)
[2024-04-19] MEDS: VALPROIC ACID 250 MG/5 ML 1000 MG GT (09:18)
[2024-04-19] MEDS: MULTIVITAMIN 1 TAB TABLET GT (09:18)
[2024-04-19] MEDS: POTASSIUM CHLORIDE 20 MEQ TAB.ER.PRT GT ×2 (09:18→20:45)
[2024-04-19] MEDS: FERROUS SULFATE 220 MG/5 ML ELIXIR 330 MG GT (09:18)
[2024-04-19] MEDS: levETIRAcetam 1,000 MG TABLET 1000 MG GT (20:45)
[2024-04-20] VITALS (12 sets, daily range): BP systolic 92–126; BP diastolic 55–71; PULSE 58–116; RESP 20–36; TEMP 36.6–38.7; O2SAT 97–99
[2024-04-20] MEDS: IPRATROPIUM/ALBUTEROL 3 ML AMPUL.NEB INH ×4 (01:45→18:10)
[2024-04-20] MEDS: ACETAMINOPHEN 325 MG TABLET 650 MG GT ×2 (01:52→09:13)
--- NOTE | 2024-04-20 04:40 | PC.NURSE ---
NOTED RESIDENT TO HAVE RR 31 HR 114 AND FELT WARM. TEMPERATURE CHECKED RECTALLY 101.7. FEVER PROTOCOL INITIATED. COOLING MEASURES.
[2024-04-20 05:08] LABS: Collection Type, Urine Catheter; RBC,Urine 0 /hpf (0-3)
[2024-04-20] MEDS: LACTULOSE 10 GM/15 ML SOLUTION GT ×3 (05:15→21:10)
[2024-04-20] MEDS: LEVOTHYROXINE 50 MCG TABLET GT (05:15)
[2024-04-20 05:32] LABS: COVID-19 Antigen (In-House) Negative (Negative)
[2024-04-20 05:33] LABS: Bilirubin,Urine Negative (Negative); Blood,Urine Negative (Negative); Clarity,Urine Clear (Clear/Hazy); Color,Urine Lt-Yellow (Lt Yel-Yel); Glucose, Urine Negative (Negative); Ketones,Urine Negative (Negative); Leukocyte Esterase,Urine Negative (Negative); Nitrite,Urine Negative (Negative); PH,Urine 7.5 (5.0-7.0); Protein,Urine Negative (Neg - Trace); Specific Gravity,Urine 1.012 (1.001-1.035); Squamous Epithelial Cell,Urine < 1 /hpf (0-5); Urobilinogen,Urine Negative mg/dL (0.0-1.0); WBC,Urine 5 /hpf (0-5)
[2024-04-20 05:56] LABS: Basophils % (Auto) 0 % (0-2.5); Eosinophils # (Auto) 0.1 Thou/mm3 (0.0-0.5); Eosinophils % (Auto) 0 % (0-10); Immature Granulocytes % (Auto) 0 % (0-0); Immature Granulocytes Auto 0.08 Thou/mm3 (0.00-0.00); Lymphocytes # (Auto) 1.2 Thou/mm3 (1.0-4.8); Lymphocytes % (Auto) 5 % (10-50); Mean Corpuscular HGB Conc 32.5 g/dl (31.0-37.0); Mean Corpuscular Hemoglobin 32.7 pg (25.0-35.0); Mean Corpuscular Volume 101 fL (80-100); Monocytes # (Auto) 1.8 Thou/mm3 (0.0-0.8); Monocytes % (Auto) 8 % (0-12); Neutrophils # (Auto) 19.1 Thou/mm3 (1.8-7.7); Neutrophils % (Auto) 86 % (37-80); Nucleated Red Blood Cell % 0 /100 WBC (0); Platelet Count 184 Thou/mm3 (140-440); RDW Standard Deviation 46.3 fL (35.1-43.9); Red Blood Count 3.97 Miln/mm3 (4.50-5.90); White Blood Count 22.3 Thou/mm3 (3.8-10.6)
[2024-04-20 06:21] LABS: Procalcitonin 0.15 ng/ml (0.0-0.49)
[2024-04-20 06:46] LABS: Influenza A Ag Negative; Influenza B Ag Negative
[2024-04-20] MEDS: BUMETANIDE 1 MG TABLET GT ×2 (09:10→20:44)
[2024-04-20] MEDS: acetaZOLAMIDE 250 MG TABLET GT ×2 (09:10→20:44)
[2024-04-20] MEDS: levETIRAcetam 750 MG TABLET GT (09:13)
[2024-04-20] MEDS: FERROUS SULFATE 220 MG/5 ML ELIXIR 330 MG GT (09:13)
[2024-04-20] MEDS: MULTIVITAMIN 1 TAB TABLET GT (09:13)
[2024-04-20] MEDS: VALPROIC ACID 250 MG/5 ML 1000 MG GT (09:13)
[2024-04-20] MEDS: FAMOTIDINE 20 MG TABLET GT (09:13)
[2024-04-20] MEDS: MAGNESIUM HYDROXIDE 30 ML ORAL SUSP ML GT (09:13)
[2024-04-20] MEDS: POTASSIUM CHLORIDE 20 MEQ TAB.ER.PRT GT ×2 (09:13→20:44)
--- NOTE | 2024-04-20 09:39 | XR_ITS ---
Examination: AP chest single view Technique one AP portable upright chest single view Exam date and time: April 20, 2024 0958 hours Comparison September 26, 2023 INDICATIONS: Shortness of breath fever today. FINDINGS: Tracheostomy tube tip 6 cm above pancho Mild prominence left ventricle Mild accentuation of bronchovascular markings. No lobar pneumonia Prominent osteopenia IMPRESSION: Bronchitis pattern
--- NOTE | 2024-04-20 17:06 | PC.NURSE ---
Addendum entered by Flora Diaz RN 04/20/24 17:32: Dr. Lackey called at this time to verify if resident still having fevers. A temp of 98.5 F was recorded this evening. MD order to continue to monitor and if resident spikes fever to call physician for further orders. Order to repeat CBC in 3 days. Original Note: Notified and reviewed lab results from fever protocol with MD. Order to continue to monitor fevers and notified MD again if fever persist by 5pm. will considered to starting abt. therapy. All cultures still pending. Will continue to monitor.
--- NOTE | 2024-04-20 17:23 | PD.SAPROG ---
Progress Note - SubAcute DIAGNOSIS (1) Chronic respiratory failure with hypoxia: Status: Chronic (2) Dependent on ventilator: Status: Chronic (3) Congestive cardiac failure: Status: Chronic (4) Epilepsy, unspecified, intractable, without status epilepticus: Status: Chronic (5) Anemia: Status: Chronic (6) Hypothyroidism, unspecified: Status: Chronic (7) Developmental disorder of scholastic skills, unspecified: Status: Chronic (8) Age-related osteoporosis without current pathological fracture: Status: Chronic (9) Gastrostomy status: Status: Chronic (10) Tracheostomy status: Status: Chronic SUBJECTIVE Fever:: unchanged (low grade) GI:: none Shortness of Breath:: none GI:: no complaints Pain:: none OBJECTIVE Most recent vital signs: Last Vital Signs Temp 98 F 04/20/24 12:00 Pulse 76 04/20/24 12:59 Resp 20 04/20/24 12:59 BP 110/71 04/20/24 12:00 Pulse Ox 99 04/20/24 12:59 O2 Del Method Mechanical Ventilation 04/20/24 06:00 FiO2 39 04/20/24 12:59 Neurological:: awake Speech:: nods head and appropriate (Sometimes) Answers questions:: sometimes Respiratory:: lungs clear Cardiovascular: RRR Abdomen: soft and nontender Decubitus:: none Tracheostomy:: to ventilator Feeding per:: G tube Complaints:: none ASSESSMENT & PLAN Assessment: Patient with cognitive function deficits. ventilator dependent. No distress. Stable condition. Diagnosis and treatment reviewed. Pt does not tolerate weaning from Ventilator, attempted very many times in the past.. Pt being slightly more interactive with staff after a long time. 04-20-24 Pt spiked fever and workup showed leucocytosis but procalcitonin within normal suggesting viral etilolgy. Flu w/u was negative. By evening fever abated and pt remains on symtomatic treatment and monitored closely. CXR did not show any pneumonia Plan: Current treatment reviewed and continued
[2024-04-20] MEDS: levETIRAcetam 1,000 MG TABLET 1000 MG GT (20:44)
[2024-04-21] VITALS (9 sets, daily range): BP systolic 103–118; BP diastolic 61–74; PULSE 72–97; RESP 20–28; TEMP 36.6–37; O2SAT 97–99
[2024-04-21] MEDS: IPRATROPIUM/ALBUTEROL 3 ML AMPUL.NEB INH ×4 (00:10→18:20)
[2024-04-21] MEDS: LEVOTHYROXINE 50 MCG TABLET GT (05:15)
[2024-04-21] MEDS: LACTULOSE 10 GM/15 ML SOLUTION GT ×2 (05:15→21:08)
[2024-04-21] MEDS: acetaZOLAMIDE 250 MG TABLET GT ×2 (09:23→20:44)
[2024-04-21] MEDS: BUMETANIDE 1 MG TABLET GT ×2 (09:24→20:45)
[2024-04-21] MEDS: MULTIVITAMIN 1 TAB TABLET GT (09:25)
[2024-04-21] MEDS: FAMOTIDINE 20 MG TABLET GT (09:25)
[2024-04-21] MEDS: levETIRAcetam 750 MG TABLET GT (09:25)
[2024-04-21] MEDS: POTASSIUM CHLORIDE 20 MEQ TAB.ER.PRT GT ×2 (09:25→20:45)
[2024-04-21] MEDS: VALPROIC ACID 250 MG/5 ML 1000 MG GT (09:25)
[2024-04-21] MEDS: FERROUS SULFATE 220 MG/5 ML ELIXIR 330 MG GT (09:25)
--- NOTE | 2024-04-21 10:01 | PC.NURSE ---
Hard copy of Miguel A's Criteria for RTI to Francie Maqruez RN. RTI criteria met; no further febrile episodes at this time. Resident was treated for PNA Feb 2024 as acute admission via ED.
[2024-04-21] MEDS: levETIRAcetam 1,000 MG TABLET 1000 MG GT (20:45)
[2024-04-22] VITALS (13 sets, daily range): BP systolic 93–115; BP diastolic 54–73; PULSE 24–119; RESP 15–27; TEMP 36–36.6; O2SAT 95–99
[2024-04-22] MEDS: IPRATROPIUM/ALBUTEROL 3 ML AMPUL.NEB INH ×4 (00:30→18:30)
[2024-04-22] MEDS: LACTULOSE 10 GM/15 ML SOLUTION GT ×2 (05:15→13:04)
[2024-04-22] MEDS: LEVOTHYROXINE 50 MCG TABLET GT (05:15)
[2024-04-22] MEDS: acetaZOLAMIDE 250 MG TABLET GT ×2 (09:10→21:47)
[2024-04-22] MEDS: BUMETANIDE 1 MG TABLET GT ×2 (09:10→21:47)
[2024-04-22] MEDS: levETIRAcetam 750 MG TABLET GT (09:11)
[2024-04-22] MEDS: CARVEDILOL 3.125 MG TABLET GT (09:11)
[2024-04-22] MEDS: VALPROIC ACID 250 MG/5 ML 1000 MG GT (09:11)
[2024-04-22] MEDS: POTASSIUM CHLORIDE 20 MEQ TAB.ER.PRT GT ×2 (09:11→21:48)
[2024-04-22] MEDS: MULTIVITAMIN 1 TAB TABLET GT (09:11)
[2024-04-22] MEDS: FAMOTIDINE 20 MG TABLET GT (09:11)
[2024-04-22] MEDS: FERROUS SULFATE 220 MG/5 ML ELIXIR 330 MG GT (09:11)
[2024-04-22] MEDS: levETIRAcetam 1,000 MG TABLET 1000 MG GT (21:46)
[2024-04-22] MEDS: LOSARTAN 25 MG TABLET GT (21:48)
[2024-04-23] VITALS (10 sets, daily range): BP systolic 92–115; BP diastolic 54–75; PULSE 64–97; RESP 19–31; TEMP 36.2–36.5; O2SAT 96–100
[2024-04-23] MEDS: IPRATROPIUM/ALBUTEROL 3 ML AMPUL.NEB INH ×4 (00:30→18:58)
[2024-04-23] MEDS: LACTULOSE 10 GM/15 ML SOLUTION GT ×2 (06:00→21:50)
[2024-04-23] MEDS: LEVOTHYROXINE 50 MCG TABLET GT (06:02)
[2024-04-23 07:30] LABS: Basophils % (Auto) 0 % (0-2.5); Eosinophils # (Auto) 0.3 Thou/mm3 (0.0-0.5); Eosinophils % (Auto) 3 % (0-10); Hematocrit 38.8 % (41.0-53.0); Hemoglobin 12.5 g/dL (13.5-16.0); Immature Granulocytes % (Auto) 0 % (0-0); Immature Granulocytes Auto 0.04 Thou/mm3 (0.00-0.00); Lymphocytes # (Auto) 2.4 Thou/mm3 (1.0-4.8); Lymphocytes % (Auto) 21 % (10-50); Mean Corpuscular HGB Conc 32.2 g/dl (31.0-37.0); Mean Corpuscular Hemoglobin 32.3 pg (25.0-35.0); Mean Corpuscular Volume 100 fL (80-100); Monocytes # (Auto) 1.3 Thou/mm3 (0.0-0.8); Monocytes % (Auto) 11 % (0-12); Neutrophils # (Auto) 7.2 Thou/mm3 (1.8-7.7); Neutrophils % (Auto) 64 % (37-80); Nucleated Red Blood Cell % 0 /100 WBC (0); Platelet Count 203 Thou/mm3 (140-440); RDW Standard Deviation 45.8 fL (35.1-43.9); Red Blood Count 3.87 Miln/mm3 (4.50-5.90); White Blood Count 11.2 Thou/mm3 (3.8-10.6)
[2024-04-23] MEDS: acetaZOLAMIDE 250 MG TABLET GT ×2 (09:25→21:49)
[2024-04-23] MEDS: BUMETANIDE 1 MG TABLET GT ×2 (09:26→21:51)
[2024-04-23] MEDS: FAMOTIDINE 20 MG TABLET GT (09:27)
[2024-04-23] MEDS: levETIRAcetam 750 MG TABLET GT (09:28)
[2024-04-23] MEDS: FERROUS SULFATE 220 MG/5 ML ELIXIR 330 MG GT (09:28)
[2024-04-23] MEDS: MULTIVITAMIN 1 TAB TABLET GT (09:29)
[2024-04-23] MEDS: POTASSIUM CHLORIDE 20 MEQ TAB.ER.PRT GT ×2 (09:29→21:52)
[2024-04-23] MEDS: VALPROIC ACID 250 MG/5 ML 1000 MG GT (09:30)
--- NOTE | 2024-04-23 17:44 | PC.NURSE ---
Resident's sputum c & S noted with Proteus mirabilis 3+ WBCs, urine culture 10,000 colonies/ml fixed lon, possible contamination. CBC drawn today with WBC of 11.2. Remains to be afebrile and stable. No s/s of respiratory distress noted . Called Dr Lackey and made aware, no new orders made
[2024-04-23] MEDS: levETIRAcetam 1,000 MG TABLET 1000 MG GT (21:51)
[2024-04-24] VITALS (9 sets, daily range): BP systolic 98–104; BP diastolic 61–69; PULSE 72–96; RESP 21–29; TEMP 36.2–36.6; O2SAT 98–100
[2024-04-24] MEDS: IPRATROPIUM/ALBUTEROL 3 ML AMPUL.NEB INH ×4 (01:48→18:30)
[2024-04-24] MEDS: LACTULOSE 10 GM/15 ML SOLUTION GT (06:02)
[2024-04-24] MEDS: LEVOTHYROXINE 50 MCG TABLET GT (06:02)
[2024-04-24] MEDS: acetaZOLAMIDE 250 MG TABLET GT ×2 (08:50→20:54)
[2024-04-24] MEDS: FAMOTIDINE 20 MG TABLET GT (08:51)
[2024-04-24] MEDS: FERROUS SULFATE 220 MG/5 ML ELIXIR 330 MG GT (08:51)
[2024-04-24] MEDS: BUMETANIDE 1 MG TABLET GT ×2 (08:51→20:54)
[2024-04-24] MEDS: levETIRAcetam 750 MG TABLET GT (08:53)
[2024-04-24] MEDS: POTASSIUM CHLORIDE 20 MEQ TAB.ER.PRT GT ×2 (08:53→20:55)
[2024-04-24] MEDS: VALPROIC ACID 250 MG/5 ML 1000 MG GT (08:53)
[2024-04-24] MEDS: MULTIVITAMIN 1 TAB TABLET GT (08:53)
[2024-04-24] MEDS: levETIRAcetam 1,000 MG TABLET 1000 MG GT (20:54)
--- NOTE | 2024-04-24 21:43 | PD.SAPROG ---
Progress Note - SubAcute DIAGNOSIS (1) Chronic respiratory failure with hypoxia: Status: Chronic (2) Dependent on ventilator: Status: Chronic (3) Congestive cardiac failure: Status: Chronic (4) Epilepsy, unspecified, intractable, without status epilepticus: Status: Chronic (5) Anemia: Status: Chronic (6) Hypothyroidism, unspecified: Status: Chronic (7) Developmental disorder of scholastic skills, unspecified: Status: Chronic (8) Age-related osteoporosis without current pathological fracture: Status: Chronic (9) Gastrostomy status: Status: Chronic (10) Tracheostomy status: Status: Chronic SUBJECTIVE Fever:: unchanged (low grade) GI:: none Shortness of Breath:: none GI:: no complaints Pain:: none OBJECTIVE Most recent vital signs: Last Vital Signs Temp 97.1 F 04/24/24 17:29 Pulse 96 04/24/24 20:55 Resp 21 H 04/24/24 18:30 BP 100/68 04/24/24 20:55 Pulse Ox 100 04/24/24 18:30 O2 Del Method Mechanical Ventilation 04/24/24 17:29 FiO2 40 04/24/24 18:30 Neurological:: awake Speech:: nods head and appropriate (Sometimes) Answers questions:: sometimes Respiratory:: lungs clear Cardiovascular: RRR Abdomen: soft and nontender Decubitus:: none Tracheostomy:: to ventilator Feeding per:: G tube Complaints:: none ASSESSMENT & PLAN Assessment: Patient with cognitive function deficits. ventilator dependent. No distress. Stable condition. Diagnosis and treatment reviewed. Pt does not tolerate weaning from Ventilator, attempted very many times in the past.. Pt being slightly more interactive with staff after a long time. 04-20-24 Pt spiked fever and workup showed leucocytosis but procalcitonin within normal suggesting viral etilolgy. Flu w/u was negative. By evening fever abated and pt remains on symtomatic treatment and monitored closely. CXR did not show any pneumonia Plan: Current treatment reviewed and continued
[2024-04-25] VITALS (11 sets, daily range): BP systolic 92–112; BP diastolic 57–73; PULSE 67–100; RESP 20–28; TEMP 36.4–36.7; O2SAT 97–100
[2024-04-25] MEDS: IPRATROPIUM/ALBUTEROL 3 ML AMPUL.NEB INH ×4 (00:58→19:15)
[2024-04-25] MEDS: LACTULOSE 10 GM/15 ML SOLUTION GT ×3 (05:20→21:05)
[2024-04-25] MEDS: LEVOTHYROXINE 50 MCG TABLET GT (05:20)
[2024-04-25] MEDS: acetaZOLAMIDE 250 MG TABLET GT ×2 (09:02→20:12)
[2024-04-25] MEDS: BUMETANIDE 1 MG TABLET GT ×2 (09:02→20:12)
[2024-04-25] MEDS: VALPROIC ACID 250 MG/5 ML 1000 MG GT (09:03)
[2024-04-25] MEDS: POTASSIUM CHLORIDE 20 MEQ TAB.ER.PRT GT ×2 (09:03→20:13)
[2024-04-25] MEDS: FAMOTIDINE 20 MG TABLET GT (09:03)
[2024-04-25] MEDS: MULTIVITAMIN 1 TAB TABLET GT (09:03)
[2024-04-25] MEDS: FERROUS SULFATE 220 MG/5 ML ELIXIR 330 MG GT (09:03)
[2024-04-25] MEDS: levETIRAcetam 750 MG TABLET GT (09:03)
[2024-04-25] MEDS: levETIRAcetam 1,000 MG TABLET 1000 MG GT (20:13)
[2024-04-26] VITALS (9 sets, daily range): BP systolic 97–116; BP diastolic 62–71; PULSE 74–93; RESP 20–25; TEMP 36.7–36.8; O2SAT 97–100
[2024-04-26] MEDS: IPRATROPIUM/ALBUTEROL 3 ML AMPUL.NEB INH ×4 (01:30→18:32)
[2024-04-26] MEDS: LEVOTHYROXINE 50 MCG TABLET GT (05:10)
[2024-04-26] MEDS: LACTULOSE 10 GM/15 ML SOLUTION GT ×2 (05:10→13:47)
[2024-04-26] MEDS: BUMETANIDE 1 MG TABLET GT ×2 (08:58→20:27)
[2024-04-26] MEDS: acetaZOLAMIDE 250 MG TABLET GT ×2 (08:58→20:26)
[2024-04-26] MEDS: CARVEDILOL 3.125 MG TABLET GT (08:59)
[2024-04-26] MEDS: FAMOTIDINE 20 MG TABLET GT (08:59)
[2024-04-26] MEDS: FERROUS SULFATE 220 MG/5 ML ELIXIR 330 MG GT (08:59)
[2024-04-26] MEDS: POTASSIUM CHLORIDE 20 MEQ TAB.ER.PRT GT ×2 (09:01→20:27)
[2024-04-26] MEDS: VALPROIC ACID 250 MG/5 ML 1000 MG GT (09:01)
[2024-04-26] MEDS: MULTIVITAMIN 1 TAB TABLET GT (09:01)
[2024-04-26] MEDS: levETIRAcetam 750 MG TABLET GT (09:01)
--- NOTE | 2024-04-26 12:35 | PD.SAPROG ---
Progress Note - SubAcute DIAGNOSIS (1) Chronic respiratory failure with hypoxia: Status: Chronic (2) Dependent on ventilator: Status: Chronic (3) Congestive cardiac failure: Status: Chronic (4) Epilepsy, unspecified, intractable, without status epilepticus: Status: Chronic (5) Anemia: Status: Chronic (6) Hypothyroidism, unspecified: Status: Chronic (7) Developmental disorder of scholastic skills, unspecified: Status: Chronic (8) Age-related osteoporosis without current pathological fracture: Status: Chronic (9) Gastrostomy status: Status: Chronic (10) Tracheostomy status: Status: Chronic SUBJECTIVE Fever:: unchanged (low grade) GI:: none Shortness of Breath:: none GI:: no complaints Pain:: none OBJECTIVE Most recent vital signs: Last Vital Signs Temp 97.4 F 04/29/24 06:00 Pulse 91 04/29/24 20:41 Resp 21 H 04/29/24 18:45 BP 108/67 04/29/24 20:41 Pulse Ox 100 04/29/24 18:45 O2 Del Method Mechanical Ventilation 04/28/24 18:00 FiO2 40 04/29/24 22:00 Neurological:: awake Speech:: nods head and appropriate (Sometimes) Answers questions:: sometimes Respiratory:: lungs clear Cardiovascular: RRR Abdomen: soft and nontender Decubitus:: none Tracheostomy:: to ventilator Feeding per:: G tube Complaints:: none ASSESSMENT & PLAN Assessment: Patient with cognitive function deficits. ventilator dependent. No distress. Stable condition. Diagnosis and treatment reviewed. Pt does not tolerate weaning from Ventilator, attempted very many times in the past.. Pt being slightly more interactive with staff after a long time. 04-20-24 Pt spiked fever and workup showed leucocytosis but procalcitonin within normal suggesting viral etilolgy. Flu w/u was negative. By evening fever abated and pt remains on symtomatic treatment and monitored closely. CXR did not show any pneumonia Plan: Current treatment reviewed and continued
[2024-04-26] MEDS: levETIRAcetam 1,000 MG TABLET 1000 MG GT (20:27)
[2024-04-27] VITALS (8 sets, daily range): BP systolic 97–123; BP diastolic 62–74; PULSE 61–96; RESP 20–29; TEMP 36.6; O2SAT 96–100
[2024-04-27] MEDS: IPRATROPIUM/ALBUTEROL 3 ML AMPUL.NEB INH ×3 (01:16→12:21)
[2024-04-27] MEDS: LEVOTHYROXINE 50 MCG TABLET GT (05:20)
[2024-04-27] MEDS: acetaZOLAMIDE 250 MG TABLET GT ×2 (08:58→20:19)
[2024-04-27] MEDS: FAMOTIDINE 20 MG TABLET GT (08:59)
[2024-04-27] MEDS: FERROUS SULFATE 220 MG/5 ML ELIXIR 330 MG GT (08:59)
[2024-04-27] MEDS: BUMETANIDE 1 MG TABLET GT ×2 (08:59→20:22)
[2024-04-27] MEDS: CARVEDILOL 3.125 MG TABLET GT (08:59)
[2024-04-27] MEDS: levETIRAcetam 750 MG TABLET GT (09:00)
[2024-04-27] MEDS: MULTIVITAMIN 1 TAB TABLET GT (09:00)
[2024-04-27] MEDS: VALPROIC ACID 250 MG/5 ML 1000 MG GT (09:01)
[2024-04-27] MEDS: POTASSIUM CHLORIDE 20 MEQ TAB.ER.PRT GT ×2 (09:01→20:23)
[2024-04-27] MEDS: LACTULOSE 10 GM/15 ML SOLUTION GT ×2 (14:25→21:10)
--- NOTE | 2024-04-27 16:14 | PC.SS ---
Room visit: Resident is laying in bed with head of the bed elevated with call light properly placed with no signs of distress. Resident remains on ventilator with trach in place and GT for medication and nutrition. Resident is well groomed, he does not have changes and will remain in current care and walter continue to have all subacute care needs met by staff.
[2024-04-27] MEDS: levETIRAcetam 1,000 MG TABLET 1000 MG GT (20:23)
[2024-04-28] VITALS (11 sets, daily range): BP systolic 94–113; BP diastolic 56–72; PULSE 70–89; RESP 20–31; TEMP 36.6–36.8; O2SAT 92–100
[2024-04-28] MEDS: IPRATROPIUM/ALBUTEROL 3 ML AMPUL.NEB INH ×4 (00:13→19:05)
[2024-04-28] MEDS: LACTULOSE 10 GM/15 ML SOLUTION GT ×2 (05:25→21:22)
[2024-04-28] MEDS: LEVOTHYROXINE 50 MCG TABLET GT (05:25)
[2024-04-28 07:55] LABS: Thyroid Stimulating Hormone 2.52 uIU/mL (0.55-4.78)
[2024-04-28] MEDS: BUMETANIDE 1 MG TABLET GT ×2 (08:06→21:22)
[2024-04-28] MEDS: FAMOTIDINE 20 MG TABLET GT (08:06)
[2024-04-28] MEDS: acetaZOLAMIDE 250 MG TABLET GT ×2 (08:06→21:21)
[2024-04-28] MEDS: FERROUS SULFATE 220 MG/5 ML ELIXIR 330 MG GT (08:07)
[2024-04-28] MEDS: levETIRAcetam 750 MG TABLET GT (08:07)
[2024-04-28] MEDS: VALPROIC ACID 250 MG/5 ML 1000 MG GT (08:07)
[2024-04-28] MEDS: MULTIVITAMIN 1 TAB TABLET GT (08:07)
[2024-04-28] MEDS: POTASSIUM CHLORIDE 20 MEQ TAB.ER.PRT GT ×2 (08:07→21:22)
[2024-04-28] MEDS: levETIRAcetam 1,000 MG TABLET 1000 MG GT (21:22)
[2024-04-29] VITALS (9 sets, daily range): BP systolic 100–116; BP diastolic 65–73; PULSE 60–91; RESP 20–26; TEMP 36.3–36.9; O2SAT 97–100
[2024-04-29] MEDS: IPRATROPIUM/ALBUTEROL 3 ML AMPUL.NEB INH ×4 (00:53→18:45)
[2024-04-29] MEDS: LACTULOSE 10 GM/15 ML SOLUTION GT ×2 (02:00→13:56)
[2024-04-29] MEDS: LEVOTHYROXINE 50 MCG TABLET GT (06:00)
[2024-04-29] MEDS: acetaZOLAMIDE 250 MG TABLET GT ×2 (08:56→20:41)
[2024-04-29] MEDS: BUMETANIDE 1 MG TABLET GT ×2 (08:58→20:41)
[2024-04-29] MEDS: FAMOTIDINE 20 MG TABLET GT (08:59)
[2024-04-29] MEDS: MULTIVITAMIN 1 TAB TABLET GT (08:59)
[2024-04-29] MEDS: FERROUS SULFATE 220 MG/5 ML ELIXIR 330 MG GT (08:59)
[2024-04-29] MEDS: levETIRAcetam 750 MG TABLET GT (08:59)
[2024-04-29] MEDS: VALPROIC ACID 250 MG/5 ML 1000 MG GT (09:00)
[2024-04-29] MEDS: POTASSIUM CHLORIDE 20 MEQ TAB.ER.PRT GT ×2 (09:00→20:41)
--- NOTE | 2024-04-29 15:33 | PC.NURSE ---
Psychosocial monitoring ongoing with resident in good spirits.
[2024-04-29] MEDS: levETIRAcetam 1,000 MG TABLET 1000 MG GT (20:41)
[2024-04-30] VITALS (12 sets, daily range): BP systolic 98–122; BP diastolic 61–75; PULSE 62–105; RESP 20–31; TEMP 36.3–36.6; O2SAT 96–100
[2024-04-30] MEDS: IPRATROPIUM/ALBUTEROL 3 ML AMPUL.NEB INH ×4 (00:05→16:17)
[2024-04-30] MEDS: LEVOTHYROXINE 50 MCG TABLET GT (05:25)
[2024-04-30] MEDS: BUMETANIDE 1 MG TABLET GT ×2 (08:49→20:55)
[2024-04-30] MEDS: acetaZOLAMIDE 250 MG TABLET GT ×2 (08:49→20:55)
[2024-04-30] MEDS: FERROUS SULFATE 220 MG/5 ML ELIXIR 330 MG GT (08:50)
[2024-04-30] MEDS: FAMOTIDINE 20 MG TABLET GT (08:50)
[2024-04-30] MEDS: MULTIVITAMIN 1 TAB TABLET GT (08:51)
[2024-04-30] MEDS: levETIRAcetam 750 MG TABLET GT (08:51)
[2024-04-30] MEDS: VALPROIC ACID 250 MG/5 ML 1000 MG GT (08:54)
[2024-04-30] MEDS: POTASSIUM CHLORIDE 20 MEQ TAB.ER.PRT GT ×2 (08:54→20:56)
[2024-04-30] MEDS: LACTULOSE 10 GM/15 ML SOLUTION GT ×2 (14:30→21:39)
[2024-04-30] MEDS: levETIRAcetam 1,000 MG TABLET 1000 MG GT (20:56)
[2024-05-01] VITALS (10 sets, daily range): BP systolic 92–115; BP diastolic 60–76; PULSE 53–90; RESP 20–29; TEMP 36.2–36.4; O2SAT 96–100
[2024-05-01] MEDS: IPRATROPIUM/ALBUTEROL 3 ML AMPUL.NEB INH ×4 (00:25→16:22)
[2024-05-01] MEDS: LACTULOSE 10 GM/15 ML SOLUTION GT ×2 (05:15→22:00)
[2024-05-01] MEDS: LEVOTHYROXINE 50 MCG TABLET GT (05:15)
--- NOTE | 2024-05-01 06:34 | PC.NURSE ---
RESIDENT SLEPT WELL. NO DISCOMFORT NOTED. COOPERATIVE WITH CARE. AT TIMES RESIDENT LIFTS ARMS WHEN TO PLACING BLOOD PRESSURE CUFF.
[2024-05-01] MEDS: acetaZOLAMIDE 250 MG TABLET GT ×2 (08:11→20:40)
[2024-05-01] MEDS: CARVEDILOL 3.125 MG TABLET GT (08:12)
[2024-05-01] MEDS: BUMETANIDE 1 MG TABLET GT ×2 (08:12→20:40)
[2024-05-01] MEDS: MULTIVITAMIN 1 TAB TABLET GT (08:13)
[2024-05-01] MEDS: FAMOTIDINE 20 MG TABLET GT (08:13)
[2024-05-01] MEDS: VALPROIC ACID 250 MG/5 ML 1000 MG GT (08:13)
[2024-05-01] MEDS: levETIRAcetam 750 MG TABLET GT (08:13)
[2024-05-01] MEDS: FERROUS SULFATE 220 MG/5 ML ELIXIR 330 MG GT (08:13)
[2024-05-01] MEDS: POTASSIUM CHLORIDE 20 MEQ TAB.ER.PRT GT ×2 (08:13→20:40)
--- NOTE | 2024-05-01 13:16 | PC.NURSE ---
Resident received bed bath today. All treatments were done. Resident resting comfortably in bed.
--- NOTE | 2024-05-01 18:33 | PC.NURSE ---
Resident remain stable, call light within reached no changes at this time we will continue to monitor.
[2024-05-01] MEDS: levETIRAcetam 1,000 MG TABLET 1000 MG GT (20:40)
[2024-05-02] VITALS (10 sets, daily range): BP systolic 106–138; BP diastolic 63–81; PULSE 61–97; RESP 20–27; TEMP 36.1–36.4; O2SAT 96–100
[2024-05-02] MEDS: IPRATROPIUM/ALBUTEROL 3 ML AMPUL.NEB INH ×4 (00:22→17:10)
[2024-05-02] MEDS: LACTULOSE 10 GM/15 ML SOLUTION GT ×3 (05:39→21:20)
[2024-05-02] MEDS: LEVOTHYROXINE 50 MCG TABLET GT (05:40)
--- NOTE | 2024-05-02 06:47 | PC.NURSE ---
Resident remain stable, call light within reached no changes at this time we will continue to monitor.
[2024-05-02] MEDS: acetaZOLAMIDE 250 MG TABLET GT ×2 (08:58→20:35)
[2024-05-02] MEDS: BUMETANIDE 1 MG TABLET GT ×2 (08:58→20:35)
[2024-05-02] MEDS: FAMOTIDINE 20 MG TABLET GT (08:59)
[2024-05-02] MEDS: levETIRAcetam 750 MG TABLET GT (08:59)
[2024-05-02] MEDS: FERROUS SULFATE 220 MG/5 ML ELIXIR 330 MG GT (08:59)
[2024-05-02] MEDS: MULTIVITAMIN 1 TAB TABLET GT (08:59)
[2024-05-02] MEDS: POTASSIUM CHLORIDE 20 MEQ TAB.ER.PRT GT ×2 (09:00→20:36)
[2024-05-02] MEDS: VALPROIC ACID 250 MG/5 ML 1000 MG GT (09:01)
[2024-05-02] MEDS: levETIRAcetam 1,000 MG TABLET 1000 MG GT (20:35)
[2024-05-02] MEDS: LOSARTAN 25 MG TABLET GT (20:35)
[2024-05-03] VITALS (11 sets, daily range): BP systolic 93–109; BP diastolic 58–72; PULSE 48–92; RESP 20–33; TEMP 36.1–36.4; O2SAT 96–100
[2024-05-03] MEDS: IPRATROPIUM/ALBUTEROL 3 ML AMPUL.NEB INH ×4 (00:56→18:45)
[2024-05-03] MEDS: LEVOTHYROXINE 50 MCG TABLET GT (05:10)
[2024-05-03] MEDS: LACTULOSE 10 GM/15 ML SOLUTION GT ×3 (05:10→21:20)
[2024-05-03] MEDS: BUMETANIDE 1 MG TABLET GT ×2 (08:50→20:24)
[2024-05-03] MEDS: acetaZOLAMIDE 250 MG TABLET GT ×2 (08:50→20:24)
[2024-05-03] MEDS: CARVEDILOL 3.125 MG TABLET GT (08:55)
[2024-05-03] MEDS: FAMOTIDINE 20 MG TABLET GT (08:55)
[2024-05-03] MEDS: FERROUS SULFATE 220 MG/5 ML ELIXIR 330 MG GT (08:56)
[2024-05-03] MEDS: MULTIVITAMIN 1 TAB TABLET GT (08:56)
[2024-05-03] MEDS: levETIRAcetam 750 MG TABLET GT (08:56)
[2024-05-03] MEDS: POTASSIUM CHLORIDE 20 MEQ TAB.ER.PRT GT ×2 (08:56→20:25)
[2024-05-03] MEDS: VALPROIC ACID 250 MG/5 ML 1000 MG GT (08:56)
[2024-05-03] MEDS: levETIRAcetam 1,000 MG TABLET 1000 MG GT (20:25)
[2024-05-04] VITALS (12 sets, daily range): BP systolic 93–116; BP diastolic 57–67; PULSE 57–109; RESP 19–28; TEMP 36.4–36.6; O2SAT 96–99
[2024-05-04] MEDS: IPRATROPIUM/ALBUTEROL 3 ML AMPUL.NEB INH ×4 (00:35→18:20)
[2024-05-04] MEDS: LACTULOSE 10 GM/15 ML SOLUTION GT ×2 (05:20→21:00)
[2024-05-04] MEDS: LEVOTHYROXINE 50 MCG TABLET GT (05:20)
--- NOTE | 2024-05-04 08:45 | PC.NURSE ---
When bathing resident this morning as nurse was shaving resident he was noncompliant started moving his head from side to side. Nurse accidentally cut upper lip and left side of face with razor. Pressure applied to help control / stop bleeding. Charge nurse informed. No signs of discomfort.
[2024-05-04] MEDS: acetaZOLAMIDE 250 MG TABLET GT ×2 (08:58→20:57)
[2024-05-04] MEDS: BUMETANIDE 1 MG TABLET GT ×2 (08:58→20:57)
[2024-05-04] MEDS: MULTIVITAMIN 1 TAB TABLET GT (08:59)
[2024-05-04] MEDS: FAMOTIDINE 20 MG TABLET GT (08:59)
[2024-05-04] MEDS: FERROUS SULFATE 220 MG/5 ML ELIXIR 330 MG GT (08:59)
[2024-05-04] MEDS: CARVEDILOL 3.125 MG TABLET GT (08:59)
[2024-05-04] MEDS: levETIRAcetam 750 MG TABLET GT (08:59)
[2024-05-04] MEDS: POTASSIUM CHLORIDE 20 MEQ TAB.ER.PRT GT ×2 (09:00→20:58)
[2024-05-04] MEDS: VALPROIC ACID 250 MG/5 ML 1000 MG GT (09:00)
[2024-05-04] MEDS: levETIRAcetam 1,000 MG TABLET 1000 MG GT (20:58)
[2024-05-05] VITALS (10 sets, daily range): BP systolic 96–114; BP diastolic 56–73; PULSE 66–105; RESP 20–29; TEMP 36.1–36.7; O2SAT 97–100
[2024-05-05] MEDS: IPRATROPIUM/ALBUTEROL 3 ML AMPUL.NEB INH ×4 (00:15→18:47)
[2024-05-05] MEDS: ACETAMINOPHEN 325 MG TABLET 650 MG GT (01:02)
[2024-05-05] MEDS: LEVOTHYROXINE 50 MCG TABLET GT (05:30)
[2024-05-05] MEDS: LACTULOSE 10 GM/15 ML SOLUTION GT ×3 (05:30→22:00)
[2024-05-05] MEDS: acetaZOLAMIDE 250 MG TABLET GT ×2 (08:34→20:46)
[2024-05-05] MEDS: FAMOTIDINE 20 MG TABLET GT (08:35)
[2024-05-05] MEDS: FERROUS SULFATE 220 MG/5 ML ELIXIR 330 MG GT (08:35)
[2024-05-05] MEDS: BUMETANIDE 1 MG TABLET GT ×2 (08:35→20:46)
[2024-05-05] MEDS: levETIRAcetam 750 MG TABLET GT (08:36)
[2024-05-05] MEDS: MULTIVITAMIN 1 TAB TABLET GT (08:36)
[2024-05-05] MEDS: VALPROIC ACID 250 MG/5 ML 1000 MG GT (08:36)
[2024-05-05] MEDS: POTASSIUM CHLORIDE 20 MEQ TAB.ER.PRT GT ×2 (08:36→20:46)
--- NOTE | 2024-05-05 19:45 | PD.SAPROG ---
Progress Note - SubAcute DIAGNOSIS (1) Chronic respiratory failure with hypoxia: Status: Chronic (2) Dependent on ventilator: Status: Chronic (3) Congestive cardiac failure: Status: Chronic (4) Epilepsy, unspecified, intractable, without status epilepticus: Status: Chronic (5) Anemia: Status: Chronic (6) Hypothyroidism, unspecified: Status: Chronic (7) Developmental disorder of scholastic skills, unspecified: Status: Chronic (8) Age-related osteoporosis without current pathological fracture: Status: Chronic (9) Gastrostomy status: Status: Chronic (10) Tracheostomy status: Status: Chronic SUBJECTIVE Fever:: unchanged (low grade) GI:: none Shortness of Breath:: none GI:: no complaints Pain:: none OBJECTIVE Most recent vital signs: Last Vital Signs Temp 97.3 F 05/05/24 18:00 Pulse 68 05/05/24 18:47 Resp 20 05/05/24 18:47 BP 103/64 05/05/24 18:00 Pulse Ox 100 05/05/24 18:47 O2 Del Method Mechanical Ventilation 05/05/24 18:00 FiO2 40 05/05/24 18:47 Neurological:: awake Speech:: nods head and appropriate (Sometimes) Answers questions:: sometimes Respiratory:: lungs clear Cardiovascular: RRR Abdomen: soft and nontender Decubitus:: none Tracheostomy:: to ventilator Feeding per:: G tube Complaints:: none ASSESSMENT & PLAN Assessment: Patient with cognitive function deficits. ventilator dependent. No distress. Stable condition. Diagnosis and treatment reviewed. Pt does not tolerate weaning from Ventilator, attempted very many times in the past.. Pt being slightly more interactive with staff after a long time. no new issues. Plan: Current treatment reviewed and continued
[2024-05-05] MEDS: levETIRAcetam 1,000 MG TABLET 1000 MG GT (20:46)
[2024-05-06] VITALS (9 sets, daily range): BP systolic 97–121; BP diastolic 55–76; PULSE 65–83; RESP 20–29; TEMP 36.3–36.5; O2SAT 98–100
[2024-05-06] MEDS: IPRATROPIUM/ALBUTEROL 3 ML AMPUL.NEB INH ×4 (00:06→16:46)
[2024-05-06] MEDS: LACTULOSE 10 GM/15 ML SOLUTION GT ×3 (05:23→21:10)
[2024-05-06] MEDS: LEVOTHYROXINE 50 MCG TABLET GT (05:23)
[2024-05-06] MEDS: acetaZOLAMIDE 250 MG TABLET GT ×2 (08:50→21:05)
[2024-05-06] MEDS: BUMETANIDE 1 MG TABLET GT ×2 (08:51→21:11)
[2024-05-06] MEDS: MULTIVITAMIN 1 TAB TABLET GT (08:51)
[2024-05-06] MEDS: FERROUS SULFATE 220 MG/5 ML ELIXIR 330 MG GT (08:51)
[2024-05-06] MEDS: CARVEDILOL 3.125 MG TABLET GT (08:51)
[2024-05-06] MEDS: FAMOTIDINE 20 MG TABLET GT (08:51)
[2024-05-06] MEDS: levETIRAcetam 750 MG TABLET GT (08:51)
[2024-05-06] MEDS: VALPROIC ACID 250 MG/5 ML 1000 MG GT (08:51)
[2024-05-06] MEDS: POTASSIUM CHLORIDE 20 MEQ TAB.ER.PRT GT ×2 (08:51→21:05)
[2024-05-06] MEDS: levETIRAcetam 1,000 MG TABLET 1000 MG GT (21:05)
[2024-05-07] VITALS (10 sets, daily range): BP systolic 98–120; BP diastolic 53–80; PULSE 66–109; RESP 22–39; TEMP 36.3–36.8; O2SAT 98–99
[2024-05-07] MEDS: LACTULOSE 10 GM/15 ML SOLUTION GT ×3 (05:05→21:32)
[2024-05-07] MEDS: LEVOTHYROXINE 50 MCG TABLET GT (05:05)
[2024-05-07] MEDS: IPRATROPIUM/ALBUTEROL 3 ML AMPUL.NEB INH ×4 (07:08→18:30)
[2024-05-07 08:01] LABS: Thyroid Stimulating Hormone 1.22 uIU/mL (0.55-4.78)
[2024-05-07] MEDS: BUMETANIDE 1 MG TABLET GT ×2 (08:41→20:40)
[2024-05-07] MEDS: acetaZOLAMIDE 250 MG TABLET GT ×2 (08:41→20:40)
[2024-05-07] MEDS: CARVEDILOL 3.125 MG TABLET GT (08:42)
[2024-05-07] MEDS: FAMOTIDINE 20 MG TABLET GT (08:43)
[2024-05-07] MEDS: POTASSIUM CHLORIDE 20 MEQ TAB.ER.PRT GT ×2 (08:46→20:41)
[2024-05-07] MEDS: FERROUS SULFATE 220 MG/5 ML ELIXIR 330 MG GT (08:46)
[2024-05-07] MEDS: levETIRAcetam 750 MG TABLET GT (08:46)
[2024-05-07] MEDS: VALPROIC ACID 250 MG/5 ML 1000 MG GT (08:46)
[2024-05-07] MEDS: MULTIVITAMIN 1 TAB TABLET GT (08:46)
[2024-05-07] MEDS: levETIRAcetam 1,000 MG TABLET 1000 MG GT (20:41)
[2024-05-08] VITALS (11 sets, daily range): BP systolic 92–120; BP diastolic 57–78; PULSE 64–106; RESP 16–31; TEMP 36.6–36.8; O2SAT 96–100
[2024-05-08] MEDS: IPRATROPIUM/ALBUTEROL 3 ML AMPUL.NEB INH ×4 (01:00→16:50)
[2024-05-08] MEDS: LACTULOSE 10 GM/15 ML SOLUTION GT ×3 (05:39→21:02)
[2024-05-08] MEDS: LEVOTHYROXINE 50 MCG TABLET GT (05:39)
[2024-05-08] MEDS: acetaZOLAMIDE 250 MG TABLET GT ×2 (09:15→20:45)
[2024-05-08] MEDS: FERROUS SULFATE 220 MG/5 ML ELIXIR 330 MG GT (09:16)
[2024-05-08] MEDS: levETIRAcetam 750 MG TABLET GT (09:16)
[2024-05-08] MEDS: MULTIVITAMIN 1 TAB TABLET GT (09:16)
[2024-05-08] MEDS: FAMOTIDINE 20 MG TABLET GT (09:16)
[2024-05-08] MEDS: POTASSIUM CHLORIDE 20 MEQ TAB.ER.PRT GT ×2 (09:16→20:45)
[2024-05-08] MEDS: VALPROIC ACID 250 MG/5 ML 1000 MG GT (09:17)
[2024-05-08] MEDS: levETIRAcetam 1,000 MG TABLET 1000 MG GT (20:45)
[2024-05-08] MEDS: BUMETANIDE 1 MG TABLET GT (21:02)
[2024-05-09] VITALS (10 sets, daily range): BP systolic 106–122; BP diastolic 60–78; PULSE 64–98; RESP 22–29; TEMP 36.2–36.7; O2SAT 97–99
[2024-05-09] MEDS: IPRATROPIUM/ALBUTEROL 3 ML AMPUL.NEB INH ×4 (00:01→18:48)
[2024-05-09] MEDS: LACTULOSE 10 GM/15 ML SOLUTION GT ×2 (05:20→21:38)
[2024-05-09] MEDS: LEVOTHYROXINE 50 MCG TABLET GT (05:20)
[2024-05-09] MEDS: BUMETANIDE 1 MG TABLET GT ×2 (09:06→21:36)
[2024-05-09] MEDS: acetaZOLAMIDE 250 MG TABLET GT ×2 (09:06→21:36)
[2024-05-09] MEDS: VALPROIC ACID 250 MG/5 ML 1000 MG GT (09:08)
[2024-05-09] MEDS: FAMOTIDINE 20 MG TABLET GT (09:08)
[2024-05-09] MEDS: POTASSIUM CHLORIDE 20 MEQ TAB.ER.PRT GT ×2 (09:08→21:37)
[2024-05-09] MEDS: MULTIVITAMIN 1 TAB TABLET GT (09:08)
[2024-05-09] MEDS: levETIRAcetam 750 MG TABLET GT (09:08)
[2024-05-09] MEDS: FERROUS SULFATE 220 MG/5 ML ELIXIR 330 MG GT (09:08)
--- NOTE | 2024-05-09 21:29 | PD.SAPROG ---
Progress Note - SubAcute DIAGNOSIS (1) Chronic respiratory failure with hypoxia: Status: Chronic (2) Dependent on ventilator: Status: Chronic (3) Congestive cardiac failure: Status: Chronic (4) Epilepsy, unspecified, intractable, without status epilepticus: Status: Chronic (5) Anemia: Status: Chronic (6) Hypothyroidism, unspecified: Status: Chronic (7) Developmental disorder of scholastic skills, unspecified: Status: Chronic (8) Age-related osteoporosis without current pathological fracture: Status: Chronic (9) Gastrostomy status: Status: Chronic (10) Tracheostomy status: Status: Chronic SUBJECTIVE Fever:: unchanged (low grade) GI:: none Shortness of Breath:: none GI:: no complaints Pain:: none OBJECTIVE Most recent vital signs: Last Vital Signs Temp 97.2 F 05/09/24 17:49 Pulse 76 05/09/24 17:49 Resp 24 H 05/09/24 17:49 BP 120/76 05/09/24 17:49 Pulse Ox 99 05/09/24 17:49 O2 Del Method Mechanical Ventilation 05/09/24 17:49 FiO2 40 05/09/24 13:00 Neurological:: awake Speech:: nods head and appropriate (Sometimes) Answers questions:: sometimes Respiratory:: lungs clear Cardiovascular: RRR Abdomen: soft and nontender Decubitus:: none Tracheostomy:: to ventilator Feeding per:: G tube Complaints:: none ASSESSMENT & PLAN Assessment: Patient with cognitive function deficits. ventilator dependent. No distress. Stable condition. Diagnosis and treatment reviewed. Pt does not tolerate weaning from Ventilator, attempted very many times in the past.. Pt being slightly more interactive with staff after a long time. no new issues. Plan: Current treatment reviewed and continued
[2024-05-09] MEDS: levETIRAcetam 1,000 MG TABLET 1000 MG GT (21:37)
[2024-05-10] VITALS (11 sets, daily range): BP systolic 94–127; BP diastolic 58–82; PULSE 57–98; RESP 21–28; TEMP 36.1–36.8; O2SAT 96–100
[2024-05-10] MEDS: IPRATROPIUM/ALBUTEROL 3 ML AMPUL.NEB INH ×4 (00:10→16:20)
[2024-05-10] MEDS: LEVOTHYROXINE 50 MCG TABLET GT (05:17)
[2024-05-10] MEDS: LACTULOSE 10 GM/15 ML SOLUTION GT ×3 (05:17→21:00)
[2024-05-10] MEDS: acetaZOLAMIDE 250 MG TABLET GT ×2 (08:22→20:55)
[2024-05-10] MEDS: BUMETANIDE 1 MG TABLET GT ×2 (08:22→20:55)
[2024-05-10] MEDS: FAMOTIDINE 20 MG TABLET GT (08:23)
[2024-05-10] MEDS: FERROUS SULFATE 220 MG/5 ML ELIXIR 330 MG GT (08:23)
[2024-05-10] MEDS: levETIRAcetam 750 MG TABLET GT (08:24)
[2024-05-10] MEDS: MULTIVITAMIN 1 TAB TABLET GT (08:24)
[2024-05-10] MEDS: POTASSIUM CHLORIDE 20 MEQ TAB.ER.PRT GT ×2 (08:24→20:56)
[2024-05-10] MEDS: VALPROIC ACID 250 MG/5 ML 1000 MG GT (08:26)
--- NOTE | 2024-05-10 12:59 | PC.NURSE ---
Seen by Dr Lackey, no new orders made.
[2024-05-10] MEDS: levETIRAcetam 1,000 MG TABLET 1000 MG GT (20:55)
[2024-05-11] VITALS (10 sets, daily range): BP systolic 96–112; BP diastolic 57–74; PULSE 69–101; RESP 21–30; TEMP 36.4–36.5; O2SAT 97–100
[2024-05-11] MEDS: IPRATROPIUM/ALBUTEROL 3 ML AMPUL.NEB INH ×4 (00:30→19:04)
[2024-05-11] MEDS: LACTULOSE 10 GM/15 ML SOLUTION GT ×3 (05:15→21:35)
[2024-05-11] MEDS: LEVOTHYROXINE 50 MCG TABLET GT (05:15)
[2024-05-11] MEDS: acetaZOLAMIDE 250 MG TABLET GT ×2 (08:36→20:15)
[2024-05-11] MEDS: BUMETANIDE 1 MG TABLET GT ×2 (08:36→20:15)
[2024-05-11] MEDS: CARVEDILOL 3.125 MG TABLET GT (08:37)
[2024-05-11] MEDS: levETIRAcetam 750 MG TABLET GT (08:38)
[2024-05-11] MEDS: FERROUS SULFATE 220 MG/5 ML ELIXIR 330 MG GT (08:38)
[2024-05-11] MEDS: FAMOTIDINE 20 MG TABLET GT (08:38)
[2024-05-11] MEDS: VALPROIC ACID 250 MG/5 ML 1000 MG GT (08:39)
[2024-05-11] MEDS: MULTIVITAMIN 1 TAB TABLET GT (08:39)
[2024-05-11] MEDS: POTASSIUM CHLORIDE 20 MEQ TAB.ER.PRT GT ×2 (08:39→20:15)
[2024-05-11] MEDS: levETIRAcetam 1,000 MG TABLET 1000 MG GT (20:15)
[2024-05-12] VITALS (11 sets, daily range): BP systolic 96–112; BP diastolic 55–67; PULSE 62–75; RESP 20–24; TEMP 36.2–36.7; O2SAT 97–100
[2024-05-12] MEDS: IPRATROPIUM/ALBUTEROL 3 ML AMPUL.NEB INH ×4 (00:20→18:30)
[2024-05-12] MEDS: LEVOTHYROXINE 50 MCG TABLET GT (05:15)
[2024-05-12] MEDS: LACTULOSE 10 GM/15 ML SOLUTION GT ×3 (05:15→21:40)
[2024-05-12] MEDS: acetaZOLAMIDE 250 MG TABLET GT ×2 (08:44→20:50)
[2024-05-12] MEDS: BUMETANIDE 1 MG TABLET GT ×2 (08:45→20:40)
[2024-05-12] MEDS: FAMOTIDINE 20 MG TABLET GT (08:46)
[2024-05-12] MEDS: POTASSIUM CHLORIDE 20 MEQ TAB.ER.PRT GT ×2 (08:47→20:40)
[2024-05-12] MEDS: MULTIVITAMIN 1 TAB TABLET GT (08:47)
[2024-05-12] MEDS: levETIRAcetam 750 MG TABLET GT (08:47)
[2024-05-12] MEDS: VALPROIC ACID 250 MG/5 ML 1000 MG GT (08:47)
[2024-05-12] MEDS: FERROUS SULFATE 220 MG/5 ML ELIXIR 330 MG GT (08:47)
[2024-05-12] MEDS: levETIRAcetam 1,000 MG TABLET 1000 MG GT (20:50)
[2024-05-13] VITALS (11 sets, daily range): BP systolic 94–112; BP diastolic 50–68; PULSE 59–87; RESP 17–32; TEMP 36.3–37.1; O2SAT 97–100
[2024-05-13] MEDS: IPRATROPIUM/ALBUTEROL 3 ML AMPUL.NEB INH ×4 (00:10→16:23)
[2024-05-13] MEDS: LACTULOSE 10 GM/15 ML SOLUTION GT ×3 (05:35→21:00)
[2024-05-13] MEDS: LEVOTHYROXINE 50 MCG TABLET GT (05:35)
[2024-05-13] MEDS: acetaZOLAMIDE 250 MG TABLET GT ×2 (08:44→20:55)
[2024-05-13] MEDS: FAMOTIDINE 20 MG TABLET GT (08:45)
[2024-05-13] MEDS: FERROUS SULFATE 220 MG/5 ML ELIXIR 330 MG GT (08:45)
[2024-05-13] MEDS: MULTIVITAMIN 1 TAB TABLET GT (08:45)
[2024-05-13] MEDS: POTASSIUM CHLORIDE 20 MEQ TAB.ER.PRT GT ×2 (08:45→20:55)
[2024-05-13] MEDS: VALPROIC ACID 250 MG/5 ML 1000 MG GT (08:45)
[2024-05-13] MEDS: levETIRAcetam 750 MG TABLET GT (08:45)
[2024-05-13] MEDS: levETIRAcetam 1,000 MG TABLET 1000 MG GT (20:55)
[2024-05-13] MEDS: BUMETANIDE 1 MG TABLET GT (20:55)
[2024-05-14] VITALS (10 sets, daily range): BP systolic 96–109; BP diastolic 53–68; PULSE 63–103; RESP 20–36; TEMP 36.2–37.1; O2SAT 96–100
[2024-05-14] MEDS: IPRATROPIUM/ALBUTEROL 3 ML AMPUL.NEB INH ×4 (01:26→18:24)
[2024-05-14] MEDS: LEVOTHYROXINE 50 MCG TABLET GT (05:10)
[2024-05-14] MEDS: LACTULOSE 10 GM/15 ML SOLUTION GT ×3 (05:10→22:00)
[2024-05-14] MEDS: acetaZOLAMIDE 250 MG TABLET GT ×2 (08:38→20:37)
[2024-05-14] MEDS: BUMETANIDE 1 MG TABLET GT ×2 (08:40→20:38)
[2024-05-14] MEDS: FAMOTIDINE 20 MG TABLET GT (08:41)
[2024-05-14] MEDS: levETIRAcetam 750 MG TABLET GT (08:44)
[2024-05-14] MEDS: VALPROIC ACID 250 MG/5 ML 1000 MG GT (08:44)
[2024-05-14] MEDS: POTASSIUM CHLORIDE 20 MEQ TAB.ER.PRT GT ×2 (08:44→20:39)
[2024-05-14] MEDS: FERROUS SULFATE 220 MG/5 ML ELIXIR 330 MG GT (08:44)
[2024-05-14] MEDS: MULTIVITAMIN 1 TAB TABLET GT (08:44)
--- NOTE | 2024-05-14 11:32 | PD.SAPROG ---
Progress Note - SubAcute DIAGNOSIS (1) Chronic respiratory failure with hypoxia: Status: Chronic (2) Dependent on ventilator: Status: Chronic (3) Congestive cardiac failure: Status: Chronic (4) Epilepsy, unspecified, intractable, without status epilepticus: Status: Chronic (5) Anemia: Status: Chronic (6) Hypothyroidism, unspecified: Status: Chronic (7) Developmental disorder of scholastic skills, unspecified: Status: Chronic (8) Age-related osteoporosis without current pathological fracture: Status: Chronic (9) Gastrostomy status: Status: Chronic (10) Tracheostomy status: Status: Chronic SUBJECTIVE Fever:: unchanged (low grade) GI:: none Shortness of Breath:: none GI:: no complaints Pain:: none OBJECTIVE Most recent vital signs: Last Vital Signs Temp 97.8 F 05/14/24 06:00 Pulse 65 05/14/24 08:40 Resp 25 H 05/14/24 07:35 BP 98/61 05/14/24 08:40 Pulse Ox 99 05/14/24 07:35 O2 Del Method Mechanical Ventilation 05/13/24 17:23 FiO2 40 05/14/24 07:35 Neurological:: awake Speech:: nods head and appropriate (Sometimes) Answers questions:: sometimes Respiratory:: lungs clear Cardiovascular: RRR Abdomen: soft and nontender Decubitus:: none Tracheostomy:: to ventilator Feeding per:: G tube Complaints:: none ASSESSMENT & PLAN Assessment: Patient with cognitive function deficits. ventilator dependent. No distress. Stable condition. Diagnosis and treatment reviewed. Pt does not tolerate weaning from Ventilator, attempted very many times. Pt maintains some activities and comfortable. Plan: Current treatment reviewed and continued
[2024-05-14] MEDS: levETIRAcetam 1,000 MG TABLET 1000 MG GT (20:38)
[2024-05-14] MEDS: CARBAMIDE PEROXIDE OTIC SOL 15 ML BTL 5 DROP BOTH EARS (20:38)
[2024-05-15] VITALS (11 sets, daily range): BP systolic 99–115; BP diastolic 56–73; PULSE 62–88; RESP 21–28; TEMP 36.4–37.1; O2SAT 96–99
[2024-05-15] MEDS: IPRATROPIUM/ALBUTEROL 3 ML AMPUL.NEB INH ×4 (01:14→18:38)
[2024-05-15] MEDS: LEVOTHYROXINE 50 MCG TABLET GT (05:20)
[2024-05-15] MEDS: acetaZOLAMIDE 250 MG TABLET GT ×2 (09:12→21:02)
[2024-05-15] MEDS: BUMETANIDE 1 MG TABLET GT ×2 (09:13→21:03)
[2024-05-15] MEDS: MULTIVITAMIN 1 TAB TABLET GT (09:14)
[2024-05-15] MEDS: FAMOTIDINE 20 MG TABLET GT (09:14)
[2024-05-15] MEDS: levETIRAcetam 750 MG TABLET GT (09:14)
[2024-05-15] MEDS: VALPROIC ACID 250 MG/5 ML 1000 MG GT (09:14)
[2024-05-15] MEDS: FERROUS SULFATE 220 MG/5 ML ELIXIR 330 MG GT (09:14)
[2024-05-15] MEDS: POTASSIUM CHLORIDE 20 MEQ TAB.ER.PRT GT ×2 (09:14→21:03)
[2024-05-15] MEDS: LACTULOSE 10 GM/15 ML SOLUTION GT ×2 (13:48→21:02)
--- NOTE | 2024-05-15 16:05 | PC.SS ---
Resident seen by [facility]/ Dr. Rene for routine podiatry services. Resident tolerated treatment well with no new orders or recommendations. Resident to continue current care.
[2024-05-15] MEDS: levETIRAcetam 1,000 MG TABLET 1000 MG GT (21:03)
[2024-05-16] VITALS (11 sets, daily range): BP systolic 88–111; BP diastolic 49–71; PULSE 53–105; RESP 21–33; TEMP 36.3–36.8; O2SAT 97–100
[2024-05-16] MEDS: IPRATROPIUM/ALBUTEROL 3 ML AMPUL.NEB INH ×4 (00:16→18:20)
[2024-05-16] MEDS: LEVOTHYROXINE 50 MCG TABLET GT (05:23)
[2024-05-16] MEDS: LACTULOSE 10 GM/15 ML SOLUTION GT ×2 (05:23→13:42)
[2024-05-16] MEDS: FAMOTIDINE 20 MG TABLET GT (08:50)
[2024-05-16] MEDS: FERROUS SULFATE 220 MG/5 ML ELIXIR 330 MG GT (08:50)
[2024-05-16] MEDS: BUMETANIDE 1 MG TABLET GT ×2 (08:50→20:32)
[2024-05-16] MEDS: acetaZOLAMIDE 250 MG TABLET GT ×2 (08:50→20:31)
[2024-05-16] MEDS: POTASSIUM CHLORIDE 20 MEQ TAB.ER.PRT GT ×2 (08:50→20:33)
[2024-05-16] MEDS: levETIRAcetam 750 MG TABLET GT (08:50)
[2024-05-16] MEDS: VALPROIC ACID 250 MG/5 ML 1000 MG GT (08:50)
[2024-05-16] MEDS: MULTIVITAMIN 1 TAB TABLET GT (08:50)
[2024-05-16] MEDS: levETIRAcetam 1,000 MG TABLET 1000 MG GT (20:33)
[2024-05-17] VITALS (11 sets, daily range): BP systolic 95–115; BP diastolic 61–76; PULSE 76–96; RESP 23–30; TEMP 36.7; O2SAT 97–100; BMI 25.1
[2024-05-17] MEDS: IPRATROPIUM/ALBUTEROL 3 ML AMPUL.NEB INH ×4 (00:10→18:30)
[2024-05-17] MEDS: LEVOTHYROXINE 50 MCG TABLET GT (05:27)
[2024-05-17] MEDS: LACTULOSE 10 GM/15 ML SOLUTION GT ×3 (05:27→21:04)
--- NOTE | 2024-05-17 07:48 | PD.SAPROG ---
Progress Note - SubAcute DIAGNOSIS (1) Chronic respiratory failure with hypoxia: Status: Chronic (2) Dependent on ventilator: Status: Chronic (3) Congestive cardiac failure: Status: Chronic (4) Epilepsy, unspecified, intractable, without status epilepticus: Status: Chronic (5) Anemia: Status: Chronic (6) Hypothyroidism, unspecified: Status: Chronic (7) Developmental disorder of scholastic skills, unspecified: Status: Chronic (8) Age-related osteoporosis without current pathological fracture: Status: Chronic (9) Gastrostomy status: Status: Chronic (10) Tracheostomy status: Status: Chronic SUBJECTIVE Fever:: unchanged (low grade) GI:: none Shortness of Breath:: none GI:: no complaints Pain:: none OBJECTIVE Most recent vital signs: Last Vital Signs Temp 98.0 F 05/17/24 05:55 Pulse 96 05/17/24 05:55 Resp 25 H 05/17/24 05:55 BP 105/65 05/17/24 05:55 Pulse Ox 99 05/17/24 05:55 O2 Del Method Mechanical Ventilation 05/17/24 05:55 FiO2 40 05/17/24 00:10 Neurological:: awake Speech:: nods head and appropriate (Sometimes) Answers questions:: sometimes Respiratory:: lungs clear Cardiovascular: RRR Abdomen: soft and nontender Decubitus:: none Tracheostomy:: to ventilator Feeding per:: G tube Complaints:: none ASSESSMENT & PLAN Assessment: Patient with cognitive function deficits. ventilator dependent. No distress. Stable condition. Diagnosis and treatment reviewed. Pt does not tolerate weaning from Ventilator, attempted very many times. Pt maintains some activities and comfortable. Plan: Current treatment reviewed and continued
[2024-05-17] MEDS: BUMETANIDE 1 MG TABLET GT ×2 (08:48→21:05)
[2024-05-17] MEDS: acetaZOLAMIDE 250 MG TABLET GT ×2 (08:48→21:05)
[2024-05-17] MEDS: CARBAMIDE PEROXIDE OTIC SOL 15 ML BTL 5 DROP BOTH EARS ×2 (08:49→21:06)
[2024-05-17] MEDS: FAMOTIDINE 20 MG TABLET GT (08:50)
[2024-05-17] MEDS: FERROUS SULFATE 220 MG/5 ML ELIXIR 330 MG GT (08:50)
[2024-05-17] MEDS: POTASSIUM CHLORIDE 20 MEQ TAB.ER.PRT GT ×2 (08:51→21:06)
[2024-05-17] MEDS: VALPROIC ACID 250 MG/5 ML 1000 MG GT (08:51)
[2024-05-17] MEDS: MULTIVITAMIN 1 TAB TABLET GT (08:51)
[2024-05-17] MEDS: levETIRAcetam 750 MG TABLET GT (08:51)
[2024-05-17] MEDS: levETIRAcetam 1,000 MG TABLET 1000 MG GT (21:06)
[2024-05-18] VITALS (10 sets, daily range): BP systolic 90–112; BP diastolic 56–76; PULSE 63–87; RESP 20–27; TEMP 36.4–37; O2SAT 98–100
[2024-05-18] MEDS: IPRATROPIUM/ALBUTEROL 3 ML AMPUL.NEB INH ×4 (01:05→18:59)
[2024-05-18] MEDS: LEVOTHYROXINE 50 MCG TABLET GT (05:12)
[2024-05-18] MEDS: LACTULOSE 10 GM/15 ML SOLUTION GT ×3 (05:12→21:40)
[2024-05-18] MEDS: acetaZOLAMIDE 250 MG TABLET GT ×2 (08:49→20:47)
[2024-05-18] MEDS: BUMETANIDE 1 MG TABLET GT ×2 (08:49→20:47)
[2024-05-18] MEDS: CARBAMIDE PEROXIDE OTIC SOL 15 ML BTL 5 DROP BOTH EARS ×2 (08:49→20:47)
[2024-05-18] MEDS: MULTIVITAMIN 1 TAB TABLET GT (08:50)
[2024-05-18] MEDS: POTASSIUM CHLORIDE 20 MEQ TAB.ER.PRT GT ×2 (08:50→20:47)
[2024-05-18] MEDS: levETIRAcetam 750 MG TABLET GT (08:50)
[2024-05-18] MEDS: VALPROIC ACID 250 MG/5 ML 1000 MG GT (08:50)
[2024-05-18] MEDS: FERROUS SULFATE 220 MG/5 ML ELIXIR 330 MG GT (08:50)
[2024-05-18] MEDS: FAMOTIDINE 20 MG TABLET GT (08:50)
[2024-05-18] MEDS: levETIRAcetam 1,000 MG TABLET 1000 MG GT (20:47)
[2024-05-19] VITALS (11 sets, daily range): BP systolic 95–131; BP diastolic 59–81; PULSE 69–87; RESP 20–28; TEMP 36.3–36.8; O2SAT 97–100
[2024-05-19] MEDS: IPRATROPIUM/ALBUTEROL 3 ML AMPUL.NEB INH ×4 (00:29→18:43)
[2024-05-19] MEDS: LEVOTHYROXINE 50 MCG TABLET GT (05:31)
[2024-05-19] MEDS: LACTULOSE 10 GM/15 ML SOLUTION GT ×2 (05:31→21:45)
[2024-05-19] MEDS: acetaZOLAMIDE 250 MG TABLET GT ×2 (08:44→20:44)
[2024-05-19] MEDS: BUMETANIDE 1 MG TABLET GT ×2 (08:44→20:44)
[2024-05-19] MEDS: levETIRAcetam 750 MG TABLET GT (08:45)
[2024-05-19] MEDS: CARBAMIDE PEROXIDE OTIC SOL 15 ML BTL 5 DROP BOTH EARS (08:45)
[2024-05-19] MEDS: FERROUS SULFATE 220 MG/5 ML ELIXIR 330 MG GT (08:45)
[2024-05-19] MEDS: FAMOTIDINE 20 MG TABLET GT (08:45)
[2024-05-19] MEDS: VALPROIC ACID 250 MG/5 ML 1000 MG GT (08:46)
[2024-05-19] MEDS: MULTIVITAMIN 1 TAB TABLET GT (08:46)
[2024-05-19] MEDS: POTASSIUM CHLORIDE 20 MEQ TAB.ER.PRT GT ×2 (08:46→20:45)
[2024-05-19 10:56] LABS: Thyroid Stimulating Hormone 2.07 uIU/mL (0.55-4.78)
--- NOTE | 2024-05-19 14:25 | PC.SS ---
Room visit: Resident is laying in bed with head of the bed elevated with call light properly placed with no signs of distress. Resident is unable to make needs known, due to absence of speech. Resident remains conserved by his father Jeremi Javier, he is a [facility] client. He remains on ventilator with trach in place and GT for medication and nutrition. Resident will remain in current care and will have all subacute care needs met by staff. This SSD will continue to make daily contact with resident and monitor for changes in mood and behavior.
[2024-05-19] MEDS: levETIRAcetam 1,000 MG TABLET 1000 MG GT (20:45)
[2024-05-20] VITALS (11 sets, daily range): BP systolic 92–108; BP diastolic 58–66; PULSE 57–97; RESP 20–27; TEMP 36.3–36.9; O2SAT 97–100
[2024-05-20] MEDS: IPRATROPIUM/ALBUTEROL 3 ML AMPUL.NEB INH ×4 (00:40→16:50)
[2024-05-20] MEDS: LEVOTHYROXINE 50 MCG TABLET GT (05:40)
[2024-05-20] MEDS: LACTULOSE 10 GM/15 ML SOLUTION GT ×3 (05:40→21:45)
[2024-05-20] MEDS: acetaZOLAMIDE 250 MG TABLET GT ×2 (08:52→20:48)
[2024-05-20] MEDS: BUMETANIDE 1 MG TABLET GT ×2 (08:53→20:48)
[2024-05-20] MEDS: FAMOTIDINE 20 MG TABLET GT (08:54)
[2024-05-20] MEDS: MULTIVITAMIN 1 TAB TABLET GT (08:54)
[2024-05-20] MEDS: levETIRAcetam 750 MG TABLET GT (08:54)
[2024-05-20] MEDS: FERROUS SULFATE 220 MG/5 ML ELIXIR 330 MG GT (08:54)
[2024-05-20] MEDS: VALPROIC ACID 250 MG/5 ML 1000 MG GT (08:55)
[2024-05-20] MEDS: POTASSIUM CHLORIDE 20 MEQ TAB.ER.PRT GT ×2 (08:55→20:50)
[2024-05-20] MEDS: levETIRAcetam 1,000 MG TABLET 1000 MG GT (20:48)
[2024-05-20] MEDS: CARBAMIDE PEROXIDE OTIC SOL 15 ML BTL 5 DROP BOTH EARS (20:48)
[2024-05-21] VITALS (11 sets, daily range): BP systolic 98–115; BP diastolic 60–77; PULSE 69–103; RESP 22–34; TEMP 36.2–37.1; O2SAT 98–100
[2024-05-21] MEDS: IPRATROPIUM/ALBUTEROL 3 ML AMPUL.NEB INH ×4 (02:20→18:40)
[2024-05-21] MEDS: LACTULOSE 10 GM/15 ML SOLUTION GT ×3 (05:05→21:24)
[2024-05-21] MEDS: LEVOTHYROXINE 50 MCG TABLET GT (05:05)
[2024-05-21] MEDS: FERROUS SULFATE 220 MG/5 ML ELIXIR 330 MG GT (09:02)
[2024-05-21] MEDS: VALPROIC ACID 250 MG/5 ML 1000 MG GT (09:02)
[2024-05-21] MEDS: FAMOTIDINE 20 MG TABLET GT (09:02)
[2024-05-21] MEDS: MULTIVITAMIN 1 TAB TABLET GT (09:02)
[2024-05-21] MEDS: levETIRAcetam 750 MG TABLET GT (09:02)
[2024-05-21] MEDS: POTASSIUM CHLORIDE 20 MEQ TAB.ER.PRT GT ×2 (09:02→21:07)
[2024-05-21] MEDS: acetaZOLAMIDE 250 MG TABLET GT ×2 (09:03→21:06)
[2024-05-21] MEDS: BUMETANIDE 1 MG TABLET GT ×2 (09:03→21:07)
[2024-05-21] MEDS: levETIRAcetam 1,000 MG TABLET 1000 MG GT (21:07)
--- NOTE | 2024-05-21 21:30 | PD.SAPROG ---
Progress Note - SubAcute DIAGNOSIS (1) Chronic respiratory failure with hypoxia: Status: Chronic (2) Dependent on ventilator: Status: Chronic (3) Congestive cardiac failure: Status: Chronic (4) Epilepsy, unspecified, intractable, without status epilepticus: Status: Chronic (5) Anemia: Status: Chronic (6) Hypothyroidism, unspecified: Status: Chronic (7) Developmental disorder of scholastic skills, unspecified: Status: Chronic (8) Age-related osteoporosis without current pathological fracture: Status: Chronic (9) Gastrostomy status: Status: Chronic (10) Tracheostomy status: Status: Chronic SUBJECTIVE Fever:: unchanged (low grade) GI:: none Shortness of Breath:: none GI:: no complaints Pain:: none OBJECTIVE Most recent vital signs: Last Vital Signs Temp 98.3 F 05/21/24 17:14 Pulse 70 05/21/24 21:07 Resp 27 H 05/21/24 17:14 BP 110/62 05/21/24 21:07 Pulse Ox 98 05/21/24 17:14 O2 Del Method Mechanical Ventilation 05/21/24 17:14 FiO2 30 05/21/24 11:08 Neurological:: awake Speech:: nods head and appropriate (Sometimes) Answers questions:: sometimes Respiratory:: lungs clear Cardiovascular: RRR Abdomen: soft and nontender Decubitus:: none Tracheostomy:: to ventilator Feeding per:: G tube Complaints:: none ASSESSMENT & PLAN Assessment: Patient with cognitive function deficits. ventilator dependent. No distress. Stable condition. Diagnosis and treatment reviewed. Pt does not tolerate weaning from Ventilator, attempted very many times. Pt maintains some activities and comfortable. Plan: Current treatment reviewed and continued
[2024-05-22] VITALS (11 sets, daily range): BP systolic 96–136; BP diastolic 62–86; PULSE 70–88; RESP 20–25; TEMP 35.9–36.6; O2SAT 96–100
[2024-05-22] MEDS: IPRATROPIUM/ALBUTEROL 3 ML AMPUL.NEB INH ×4 (00:10→18:05)
[2024-05-22] MEDS: LEVOTHYROXINE 50 MCG TABLET GT (05:29)
[2024-05-22] MEDS: LACTULOSE 10 GM/15 ML SOLUTION GT ×3 (05:29→21:55)
[2024-05-22] MEDS: FAMOTIDINE 20 MG TABLET GT (08:35)
[2024-05-22] MEDS: acetaZOLAMIDE 250 MG TABLET GT ×2 (08:35→21:01)
[2024-05-22] MEDS: BUMETANIDE 1 MG TABLET GT ×2 (08:35→21:02)
[2024-05-22] MEDS: MULTIVITAMIN 1 TAB TABLET GT (08:36)
[2024-05-22] MEDS: FERROUS SULFATE 220 MG/5 ML ELIXIR 330 MG GT (08:36)
[2024-05-22] MEDS: VALPROIC ACID 250 MG/5 ML 1000 MG GT (08:36)
[2024-05-22] MEDS: POTASSIUM CHLORIDE 20 MEQ TAB.ER.PRT GT ×2 (08:36→21:02)
[2024-05-22] MEDS: levETIRAcetam 750 MG TABLET GT (08:36)
[2024-05-22] MEDS: levETIRAcetam 1,000 MG TABLET 1000 MG GT (21:02)
[2024-05-23] VITALS (10 sets, daily range): BP systolic 96–121; BP diastolic 60–77; PULSE 69–100; RESP 21–29; TEMP 36.2–36.6; O2SAT 96–100
[2024-05-23] MEDS: IPRATROPIUM/ALBUTEROL 3 ML AMPUL.NEB INH ×4 (00:10→18:40)
[2024-05-23] MEDS: LEVOTHYROXINE 50 MCG TABLET GT (05:16)
[2024-05-23] MEDS: LACTULOSE 10 GM/15 ML SOLUTION GT ×2 (05:16→21:20)
[2024-05-23] MEDS: FERROUS SULFATE 220 MG/5 ML ELIXIR 330 MG GT (08:47)
[2024-05-23] MEDS: acetaZOLAMIDE 250 MG TABLET GT ×2 (08:47→21:22)
[2024-05-23] MEDS: CARVEDILOL 3.125 MG TABLET GT (08:47)
[2024-05-23] MEDS: BUMETANIDE 1 MG TABLET GT ×2 (08:47→21:22)
[2024-05-23] MEDS: FAMOTIDINE 20 MG TABLET GT (08:47)
[2024-05-23] MEDS: levETIRAcetam 750 MG TABLET GT (08:48)
[2024-05-23] MEDS: VALPROIC ACID 250 MG/5 ML 1000 MG GT (08:48)
[2024-05-23] MEDS: POTASSIUM CHLORIDE 20 MEQ TAB.ER.PRT GT ×2 (08:48→21:24)
[2024-05-23] MEDS: MULTIVITAMIN 1 TAB TABLET GT (08:48)
[2024-05-23] MEDS: levETIRAcetam 1,000 MG TABLET 1000 MG GT (21:23)
[2024-05-24] VITALS (12 sets, daily range): BP systolic 97–126; BP diastolic 59–85; PULSE 56–83; RESP 20–30; TEMP 36.4–36.8; O2SAT 96–99; BMI 25.2
[2024-05-24] MEDS: IPRATROPIUM/ALBUTEROL 3 ML AMPUL.NEB INH ×4 (00:20→18:00)
[2024-05-24] MEDS: LEVOTHYROXINE 50 MCG TABLET GT (06:18)
[2024-05-24] MEDS: LACTULOSE 10 GM/15 ML SOLUTION GT ×3 (06:18→21:35)
[2024-05-24] MEDS: BUMETANIDE 1 MG TABLET GT ×2 (08:54→21:35)
[2024-05-24] MEDS: acetaZOLAMIDE 250 MG TABLET GT ×2 (08:54→21:35)
[2024-05-24] MEDS: CARVEDILOL 3.125 MG TABLET GT (08:55)
[2024-05-24] MEDS: FAMOTIDINE 20 MG TABLET GT (08:55)
[2024-05-24] MEDS: FERROUS SULFATE 220 MG/5 ML ELIXIR 330 MG GT (08:55)
[2024-05-24] MEDS: levETIRAcetam 750 MG TABLET GT (08:55)
[2024-05-24] MEDS: VALPROIC ACID 250 MG/5 ML 1000 MG GT (08:56)
[2024-05-24] MEDS: POTASSIUM CHLORIDE 20 MEQ TAB.ER.PRT GT ×2 (08:56→21:37)
[2024-05-24] MEDS: MULTIVITAMIN 1 TAB TABLET GT (08:56)
--- NOTE | 2024-05-24 13:44 | PC.SS ---
Room visit: Resident is laying in bed with head of the bed elevated with call ight properply placed with no signs of distress. Resident remains on ventilator with trach in place and GT for medication and nutrition. Resident is non verbal unable to make needs known, he remains conserved by his father Jeremi Javier. Resident remains a [facility] client and has unannounced visits from his coordinator of rehabilitation services Georgi Zamora. Resident will remain in current care and will continue to have all subacute care needs met by staff. This SSD will continue to make daily room visits.
[2024-05-24] MEDS: levETIRAcetam 1,000 MG TABLET 1000 MG GT (21:36)
[2024-05-25] VITALS (10 sets, daily range): BP systolic 90–110; BP diastolic 53–70; PULSE 67–92; RESP 19–27; TEMP 36.1–36.6; O2SAT 98–100
[2024-05-25] MEDS: IPRATROPIUM/ALBUTEROL 3 ML AMPUL.NEB INH ×4 (00:06→18:40)
[2024-05-25] MEDS: LEVOTHYROXINE 50 MCG TABLET GT (05:31)
[2024-05-25] MEDS: LACTULOSE 10 GM/15 ML SOLUTION GT ×3 (05:31→22:17)
[2024-05-25] MEDS: BUMETANIDE 1 MG TABLET GT ×2 (09:00→21:37)
[2024-05-25] MEDS: levETIRAcetam 750 MG TABLET GT (09:00)
[2024-05-25] MEDS: POTASSIUM CHLORIDE 20 MEQ TAB.ER.PRT GT ×2 (09:00→21:37)
[2024-05-25] MEDS: FERROUS SULFATE 220 MG/5 ML ELIXIR 330 MG GT (09:00)
[2024-05-25] MEDS: acetaZOLAMIDE 250 MG TABLET GT ×2 (09:00→21:36)
[2024-05-25] MEDS: MULTIVITAMIN 1 TAB TABLET GT (09:00)
[2024-05-25] MEDS: FAMOTIDINE 20 MG TABLET GT (09:00)
[2024-05-25] MEDS: VALPROIC ACID 250 MG/5 ML 1000 MG GT (09:00)
[2024-05-25] MEDS: levETIRAcetam 1,000 MG TABLET 1000 MG GT (21:37)
[2024-05-25] MEDS: ACETAMINOPHEN 325 MG TABLET 650 MG GT (21:38)
--- NOTE | 2024-05-25 22:03 | PD.SAPROG ---
Progress Note - SubAcute DIAGNOSIS (1) Chronic respiratory failure with hypoxia: Status: Chronic (2) Dependent on ventilator: Status: Chronic (3) Congestive cardiac failure: Status: Chronic (4) Epilepsy, unspecified, intractable, without status epilepticus: Status: Chronic (5) Anemia: Status: Chronic (6) Hypothyroidism, unspecified: Status: Chronic (7) Developmental disorder of scholastic skills, unspecified: Status: Chronic (8) Age-related osteoporosis without current pathological fracture: Status: Chronic (9) Gastrostomy status: Status: Chronic (10) Tracheostomy status: Status: Chronic SUBJECTIVE Fever:: unchanged (low grade) GI:: none Shortness of Breath:: none GI:: no complaints Pain:: none OBJECTIVE Most recent vital signs: Last Vital Signs Temp 97.2 F 05/25/24 17:43 Pulse 70 05/25/24 21:37 Resp 20 05/25/24 17:43 BP 110/70 05/25/24 21:37 Pulse Ox 100 05/25/24 17:43 O2 Del Method Mechanical Ventilation 05/25/24 17:43 FiO2 30 05/25/24 13:05 Neurological:: awake Speech:: nods head and appropriate (Sometimes) Answers questions:: sometimes Respiratory:: lungs clear Cardiovascular: RRR Abdomen: soft and nontender Decubitus:: none Tracheostomy:: to ventilator Feeding per:: G tube Complaints:: none ASSESSMENT & PLAN Assessment: Patient with cognitive function deficits. ventilator dependent. No distress. Stable condition. Diagnosis and treatment reviewed. Pt does not tolerate weaning from Ventilator, attempted very many times. Pt maintains some activities and comfortable. Plan: Current treatment reviewed and continued
[2024-05-26] VITALS (12 sets, daily range): BP systolic 98–114; BP diastolic 58–71; PULSE 73–93; RESP 20–31; TEMP 35.9–36.9; O2SAT 97–100
[2024-05-26] MEDS: IPRATROPIUM/ALBUTEROL 3 ML AMPUL.NEB INH ×4 (01:47→18:59)
[2024-05-26] MEDS: LACTULOSE 10 GM/15 ML SOLUTION GT ×3 (05:28→21:08)
[2024-05-26] MEDS: LEVOTHYROXINE 50 MCG TABLET GT (05:29)
[2024-05-26] MEDS: acetaZOLAMIDE 250 MG TABLET GT ×2 (08:48→21:09)
[2024-05-26] MEDS: BUMETANIDE 1 MG TABLET GT ×2 (08:48→21:09)
[2024-05-26] MEDS: CARVEDILOL 3.125 MG TABLET GT (08:49)
[2024-05-26] MEDS: FAMOTIDINE 20 MG TABLET GT (08:49)
[2024-05-26] MEDS: POTASSIUM CHLORIDE 20 MEQ TAB.ER.PRT GT ×2 (08:50→21:12)
[2024-05-26] MEDS: levETIRAcetam 750 MG TABLET GT (08:50)
[2024-05-26] MEDS: MULTIVITAMIN 1 TAB TABLET GT (08:50)
[2024-05-26] MEDS: FERROUS SULFATE 220 MG/5 ML ELIXIR 330 MG GT (08:50)
[2024-05-26] MEDS: VALPROIC ACID 250 MG/5 ML 1000 MG GT (08:51)
[2024-05-26] MEDS: levETIRAcetam 1,000 MG TABLET 1000 MG GT (21:10)
[2024-05-26] MEDS: LOSARTAN 25 MG TABLET GT (21:11)
[2024-05-27] VITALS (11 sets, daily range): BP systolic 97–115; BP diastolic 54–74; PULSE 58–102; RESP 23–32; TEMP 36.4–36.7; O2SAT 95–100
[2024-05-27] MEDS: IPRATROPIUM/ALBUTEROL 3 ML AMPUL.NEB INH ×4 (00:06→18:44)
[2024-05-27] MEDS: LACTULOSE 10 GM/15 ML SOLUTION GT ×3 (05:41→21:04)
[2024-05-27] MEDS: LEVOTHYROXINE 50 MCG TABLET GT (05:42)
[2024-05-27] MEDS: acetaZOLAMIDE 250 MG TABLET GT ×2 (09:09→20:58)
[2024-05-27] MEDS: FERROUS SULFATE 220 MG/5 ML ELIXIR 330 MG GT (09:10)
[2024-05-27] MEDS: levETIRAcetam 750 MG TABLET GT (09:10)
[2024-05-27] MEDS: BUMETANIDE 1 MG TABLET GT ×2 (09:10→20:59)
[2024-05-27] MEDS: FAMOTIDINE 20 MG TABLET GT (09:10)
[2024-05-27] MEDS: MULTIVITAMIN 1 TAB TABLET GT (09:11)
[2024-05-27] MEDS: VALPROIC ACID 250 MG/5 ML 1000 MG GT (09:13)
[2024-05-27] MEDS: POTASSIUM CHLORIDE 20 MEQ TAB.ER.PRT GT ×2 (09:13→20:59)
--- NOTE | 2024-05-27 14:10 | PD.SAHP ---
Physical exam Physical Exam Vital signs: Temp Pulse Resp BP Pulse Ox O2 Del Method FiO2 97.8 F 81 27 H 100/66 98 Mechanical Ventilation 30 05/28/24 12:00 05/28/24 12:51 05/28/24 12:51 05/28/24 12:00 05/28/24 12:51 05/28/24 04:26 05/28/24 12:51 Narrative: Comfortable, no distress, vital signs normal Constitutional Comments: No fever, no systemic symptoms, saturations remained good in the mid 90s. HEENT Exam Head: Present normocephalic Eye: Present EOMI and PERRL ENT: Present mucous membranes moist and oropharynx clear Neck Exam Neck: Present supple Comments: No JVD/lymphadenopathy Chest/Breast/Axilla Exam Comments: NAD Respiratory Exam Respiratory: Present chest non-tender, lungs clear, normal breath sounds, no resp distress and patient mechanically ventilated Comments: Patient comfortable Maintains spontaneous breathing over the ventilator Cardiovascular Exam Cardiovascular: Present RRR, S1 and S2 Abdominal Exam Abdominal: Present soft and normoactive bowel sounds Rectal Exam Comments: Deferred Exam Comments: NAD Extremities Exam Comments: Moving all 4 extremities. Back/Spine/Pelvis Exam Comments: NAD Skin Exam Comments: NAD Neurological Exam Neurological: Present alert Comments: Oriented in person, not in time and place. Can interact with staff very minimally. Responds sometimes to very simple commands appropriately. Rehabilitation potential Diagnosis (1) Chronic respiratory failure with hypoxia: Status: Chronic Assessment & Plan: Multiple attempts at weaning and not successful. Patient comfortable in the regular settings. (2) Dependent on ventilator: Status: Chronic (3) Congestive cardiac failure: Status: Chronic (4) Epilepsy, unspecified, intractable, without status epilepticus: Status: Chronic (5) Anemia: Status: Chronic (6) Hypothyroidism, unspecified: Status: Chronic (7) Developmental disorder of scholastic skills, unspecified: Status: Chronic (8) Age-related osteoporosis without current pathological fracture: Status: Chronic (9) Gastrostomy status: Status: Chronic (10) Tracheostomy status: Status: Chronic Assessment & Plan Assessment: Patient with cognitive function deficits. ventilator dependent. No distress. Stable condition. Diagnosis and treatment reviewed. Pt does not tolerate weaning from Ventilator, attempted very many times. Pt maintains some activities and comfortable. No new issues. Plan: Current treatment reviewed and continued Prognosis Prognosis: Prognosis for independent living, poor. HPI History of Present Illness HPI: Updated H&P for year 2023. Patient is a resident of [facility] for very many years now with developmental cognitive and physical disability cardiorespiratory failure, ventilator dependent with a tracheostomy in place and a feeding G-tube along with congestive heart failure; chronic anemia; generalized seizure disorder; incontinent of bladder and bowel. Has remained fairly stable and plan is for long-term care here in the [facility] senior care facility since patient needs full-time care which is difficult for parents to manage at home. Patient's father remains very supportive and is updated from time to time
--- NOTE | 2024-05-27 18:55 | PD.SAPROG ---
Progress Note - SubAcute DIAGNOSIS (1) Chronic respiratory failure with hypoxia: Status: Chronic (2) Dependent on ventilator: Status: Chronic (3) Congestive cardiac failure: Status: Chronic (4) Epilepsy, unspecified, intractable, without status epilepticus: Status: Chronic (5) Anemia: Status: Chronic (6) Hypothyroidism, unspecified: Status: Chronic (7) Developmental disorder of scholastic skills, unspecified: Status: Chronic (8) Age-related osteoporosis without current pathological fracture: Status: Chronic (9) Gastrostomy status: Status: Chronic (10) Tracheostomy status: Status: Chronic SUBJECTIVE Fever:: unchanged (low grade) GI:: none Shortness of Breath:: none GI:: no complaints Pain:: none OBJECTIVE Most recent vital signs: Last Vital Signs Temp 98.0 F 05/27/24 17:36 Pulse 60 05/27/24 17:36 Resp 26 H 05/27/24 17:36 BP 108/70 05/27/24 17:36 Pulse Ox 100 05/27/24 17:36 O2 Del Method Mechanical Ventilation 05/27/24 17:36 FiO2 30 05/27/24 12:24 Neurological:: awake Speech:: nods head and appropriate (Sometimes) Answers questions:: sometimes Respiratory:: lungs clear Cardiovascular: RRR Abdomen: soft and nontender Decubitus:: none Tracheostomy:: to ventilator Feeding per:: G tube Complaints:: none ASSESSMENT & PLAN Assessment: Patient with cognitive function deficits. ventilator dependent. No distress. Stable condition. Diagnosis and treatment reviewed. Pt does not tolerate weaning from Ventilator, attempted very many times. Pt maintains some activities and comfortable. No new issues. Plan: Current treatment reviewed and continued
[2024-05-27] MEDS: levETIRAcetam 1,000 MG TABLET 1000 MG GT (20:59)
[2024-05-28] VITALS (10 sets, daily range): BP systolic 100–118; BP diastolic 66–72; PULSE 80–102; RESP 20–34; TEMP 36.4–36.6; O2SAT 95–100
[2024-05-28] MEDS: LACTULOSE 10 GM/15 ML SOLUTION GT ×3 (05:27→21:14)
[2024-05-28] MEDS: LEVOTHYROXINE 50 MCG TABLET GT (05:27)
[2024-05-28] MEDS: IPRATROPIUM/ALBUTEROL 3 ML AMPUL.NEB INH ×4 (06:47→16:15)
[2024-05-28] MEDS: BUMETANIDE 1 MG TABLET GT ×2 (08:52→21:15)
[2024-05-28] MEDS: acetaZOLAMIDE 250 MG TABLET GT ×2 (08:52→21:15)
[2024-05-28] MEDS: CARVEDILOL 3.125 MG TABLET GT (08:53)
[2024-05-28] MEDS: FERROUS SULFATE 220 MG/5 ML ELIXIR 330 MG GT (08:53)
[2024-05-28] MEDS: FAMOTIDINE 20 MG TABLET GT (08:53)
[2024-05-28] MEDS: levETIRAcetam 750 MG TABLET GT (08:54)
[2024-05-28] MEDS: VALPROIC ACID 250 MG/5 ML 1000 MG GT (08:54)
[2024-05-28] MEDS: MULTIVITAMIN 1 TAB TABLET GT (08:54)
[2024-05-28] MEDS: POTASSIUM CHLORIDE 20 MEQ TAB.ER.PRT GT ×2 (08:54→21:16)
[2024-05-28] MEDS: LOSARTAN 25 MG TABLET GT (21:15)
[2024-05-28] MEDS: levETIRAcetam 1,000 MG TABLET 1000 MG GT (21:15)
[2024-05-29] VITALS (9 sets, daily range): BP systolic 95–117; BP diastolic 50–82; PULSE 73–89; RESP 22–30; TEMP 36.3–36.6; O2SAT 96–99
[2024-05-29] MEDS: IPRATROPIUM/ALBUTEROL 3 ML AMPUL.NEB INH ×4 (00:35→19:26)
[2024-05-29] MEDS: LEVOTHYROXINE 50 MCG TABLET GT (05:42)
[2024-05-29] MEDS: LACTULOSE 10 GM/15 ML SOLUTION GT ×3 (05:42→22:00)
[2024-05-29] MEDS: BUMETANIDE 1 MG TABLET GT ×2 (08:11→20:46)
[2024-05-29] MEDS: acetaZOLAMIDE 250 MG TABLET GT ×2 (08:11→20:46)
[2024-05-29] MEDS: MULTIVITAMIN 1 TAB TABLET GT (08:12)
[2024-05-29] MEDS: levETIRAcetam 750 MG TABLET GT (08:12)
[2024-05-29] MEDS: FERROUS SULFATE 220 MG/5 ML ELIXIR 330 MG GT (08:12)
[2024-05-29] MEDS: VALPROIC ACID 250 MG/5 ML 1000 MG GT (08:12)
[2024-05-29] MEDS: POTASSIUM CHLORIDE 20 MEQ TAB.ER.PRT GT ×2 (08:12→20:46)
[2024-05-29] MEDS: FAMOTIDINE 20 MG TABLET GT (08:12)
[2024-05-29] MEDS: levETIRAcetam 1,000 MG TABLET 1000 MG GT (20:46)
[2024-05-30] VITALS (11 sets, daily range): BP systolic 108–135; BP diastolic 69–79; PULSE 75–99; RESP 20–30; TEMP 36.7–37.2; O2SAT 97–100
[2024-05-30] MEDS: IPRATROPIUM/ALBUTEROL 3 ML AMPUL.NEB INH ×4 (00:50→18:38)
[2024-05-30] MEDS: LACTULOSE 10 GM/15 ML SOLUTION GT ×3 (05:14→21:04)
[2024-05-30] MEDS: LEVOTHYROXINE 50 MCG TABLET GT (05:14)
[2024-05-30] MEDS: BUMETANIDE 1 MG TABLET GT ×2 (08:51→21:05)
[2024-05-30] MEDS: acetaZOLAMIDE 250 MG TABLET GT ×2 (08:51→21:05)
[2024-05-30] MEDS: CARVEDILOL 3.125 MG TABLET GT (08:52)
[2024-05-30] MEDS: FERROUS SULFATE 220 MG/5 ML ELIXIR 330 MG GT (08:52)
[2024-05-30] MEDS: FAMOTIDINE 20 MG TABLET GT (08:52)
[2024-05-30] MEDS: levETIRAcetam 750 MG TABLET GT (08:53)
[2024-05-30] MEDS: POTASSIUM CHLORIDE 20 MEQ TAB.ER.PRT GT ×2 (08:54→21:05)
[2024-05-30] MEDS: VALPROIC ACID 250 MG/5 ML 1000 MG GT (08:54)
[2024-05-30] MEDS: MULTIVITAMIN 1 TAB TABLET GT (08:54)
[2024-05-30] MEDS: levETIRAcetam 1,000 MG TABLET 1000 MG GT (21:05)
[2024-05-30] MEDS: LOSARTAN 25 MG TABLET GT (21:05)
[2024-05-31] VITALS (10 sets, daily range): BP systolic 106–120; BP diastolic 68–78; PULSE 70–99; RESP 23–30; TEMP 36.7–37; O2SAT 97–100
[2024-05-31] MEDS: IPRATROPIUM/ALBUTEROL 3 ML AMPUL.NEB INH ×4 (00:45→18:35)
[2024-05-31] MEDS: LEVOTHYROXINE 50 MCG TABLET GT (05:38)
[2024-05-31] MEDS: LACTULOSE 10 GM/15 ML SOLUTION GT ×3 (05:38→21:16)
[2024-05-31] MEDS: acetaZOLAMIDE 250 MG TABLET GT ×2 (08:36→20:51)
[2024-05-31] MEDS: BUMETANIDE 1 MG TABLET GT ×2 (08:36→20:52)
[2024-05-31] MEDS: FERROUS SULFATE 220 MG/5 ML ELIXIR 330 MG GT (08:37)
[2024-05-31] MEDS: CARVEDILOL 3.125 MG TABLET GT (08:37)
[2024-05-31] MEDS: FAMOTIDINE 20 MG TABLET GT (08:37)
[2024-05-31] MEDS: POTASSIUM CHLORIDE 20 MEQ TAB.ER.PRT GT ×2 (08:40→20:53)
[2024-05-31] MEDS: levETIRAcetam 750 MG TABLET GT (08:40)
[2024-05-31] MEDS: MULTIVITAMIN 1 TAB TABLET GT (08:40)
[2024-05-31] MEDS: VALPROIC ACID 250 MG/5 ML 1000 MG GT (08:40)
--- NOTE | 2024-05-31 12:35 | PD.SAPROG ---
Progress Note - SubAcute DIAGNOSIS (1) Chronic respiratory failure with hypoxia: Status: Chronic (2) Dependent on ventilator: Status: Chronic (3) Congestive cardiac failure: Status: Chronic (4) Epilepsy, unspecified, intractable, without status epilepticus: Status: Chronic (5) Anemia: Status: Chronic (6) Hypothyroidism, unspecified: Status: Chronic (7) Developmental disorder of scholastic skills, unspecified: Status: Chronic (8) Age-related osteoporosis without current pathological fracture: Status: Chronic (9) Gastrostomy status: Status: Chronic (10) Tracheostomy status: Status: Chronic SUBJECTIVE Fever:: unchanged (low grade) GI:: none Shortness of Breath:: none GI:: no complaints Pain:: none OBJECTIVE Most recent vital signs: Last Vital Signs Temp 98.2 F 06/02/24 17:22 Pulse 73 06/02/24 21:03 Resp 26 H 06/02/24 17:22 BP 104/66 06/02/24 21:03 Pulse Ox 98 06/02/24 17:22 O2 Del Method Mechanical Ventilation 06/02/24 17:22 FiO2 30 06/02/24 13:10 Neurological:: awake Speech:: nods head and appropriate (Sometimes) Answers questions:: sometimes Respiratory:: lungs clear Cardiovascular: RRR Abdomen: soft and nontender Decubitus:: none Tracheostomy:: to ventilator Feeding per:: G tube Complaints:: none ASSESSMENT & PLAN Assessment: Patient with cognitive function deficits. ventilator dependent. No distress. Stable condition. Diagnosis and treatment reviewed. Pt does not tolerate weaning from Ventilator, attempted very many times. Pt maintains some activities and comfortable. No new issues of pain Plan: Current treatment reviewed and continued
[2024-05-31] MEDS: levETIRAcetam 1,000 MG TABLET 1000 MG GT (20:52)
[2024-06-01] VITALS (11 sets, daily range): BP systolic 94–113; BP diastolic 60–73; PULSE 57–77; RESP 23–27; TEMP 36.4–36.9; O2SAT 96–100
[2024-06-01] MEDS: IPRATROPIUM/ALBUTEROL 3 ML AMPUL.NEB INH ×4 (00:20→18:30)
[2024-06-01] MEDS: LEVOTHYROXINE 50 MCG TABLET GT (05:27)
[2024-06-01] MEDS: LACTULOSE 10 GM/15 ML SOLUTION GT ×3 (05:27→21:12)
[2024-06-01] MEDS: FAMOTIDINE 20 MG TABLET GT (08:06)
[2024-06-01] MEDS: BUMETANIDE 1 MG TABLET GT ×2 (08:06→20:32)
[2024-06-01] MEDS: FERROUS SULFATE 220 MG/5 ML ELIXIR 330 MG GT (08:06)
[2024-06-01] MEDS: CARVEDILOL 3.125 MG TABLET GT (08:06)
[2024-06-01] MEDS: acetaZOLAMIDE 250 MG TABLET GT ×2 (08:06→20:32)
[2024-06-01] MEDS: POTASSIUM CHLORIDE 20 MEQ TAB.ER.PRT GT ×2 (08:07→20:33)
[2024-06-01] MEDS: levETIRAcetam 750 MG TABLET GT (08:07)
[2024-06-01] MEDS: MULTIVITAMIN 1 TAB TABLET GT (08:07)
[2024-06-01] MEDS: VALPROIC ACID 250 MG/5 ML 1000 MG GT (08:07)
[2024-06-01] MEDS: levETIRAcetam 1,000 MG TABLET 1000 MG GT (20:33)
[2024-06-02] VITALS (11 sets, daily range): BP systolic 100–119; BP diastolic 58–74; PULSE 55–96; RESP 20–31; TEMP 36.1–36.8; O2SAT 98–100
[2024-06-02] MEDS: IPRATROPIUM/ALBUTEROL 3 ML AMPUL.NEB INH ×3 (00:10→18:30)
[2024-06-02] MEDS: LEVOTHYROXINE 50 MCG TABLET GT (05:37)
[2024-06-02] MEDS: BUMETANIDE 1 MG TABLET GT ×2 (08:32→21:03)
[2024-06-02] MEDS: acetaZOLAMIDE 250 MG TABLET GT ×2 (08:32→21:03)
[2024-06-02] MEDS: FAMOTIDINE 20 MG TABLET GT (08:33)
[2024-06-02] MEDS: CARVEDILOL 3.125 MG TABLET GT (08:33)
[2024-06-02] MEDS: FERROUS SULFATE 220 MG/5 ML ELIXIR 330 MG GT (08:34)
[2024-06-02] MEDS: POTASSIUM CHLORIDE 20 MEQ TAB.ER.PRT GT ×2 (08:34→21:04)
[2024-06-02] MEDS: levETIRAcetam 750 MG TABLET GT (08:34)
[2024-06-02] MEDS: VALPROIC ACID 250 MG/5 ML 1000 MG GT (08:34)
[2024-06-02] MEDS: MULTIVITAMIN 1 TAB TABLET GT (08:34)
--- NOTE | 2024-06-02 11:03 | PC.SS ---
Room visit: Resident is in activity room with family in town for a visit. Resident two sisters and father are in town from [place] for a visit. Family comes twice a year to visit and supply resident with needs. Resident is well groomed with no signs of distress.
[2024-06-02] MEDS: levETIRAcetam 1,000 MG TABLET 1000 MG GT (21:04)
[2024-06-02] MEDS: LACTULOSE 10 GM/15 ML SOLUTION GT (21:16)
[2024-06-03] VITALS (12 sets, daily range): BP systolic 98–115; BP diastolic 5–71; PULSE 65–99; RESP 20–35; TEMP 36.3–36.9; O2SAT 97–100
[2024-06-03] MEDS: IPRATROPIUM/ALBUTEROL 3 ML AMPUL.NEB INH ×4 (00:05→18:25)
[2024-06-03] MEDS: LACTULOSE 10 GM/15 ML SOLUTION GT ×3 (05:31→22:00)
[2024-06-03] MEDS: LEVOTHYROXINE 50 MCG TABLET GT (05:31)
[2024-06-03] MEDS: acetaZOLAMIDE 250 MG TABLET GT ×2 (08:34→20:34)
[2024-06-03] MEDS: BUMETANIDE 1 MG TABLET GT ×2 (08:36→20:34)
[2024-06-03] MEDS: MULTIVITAMIN 1 TAB TABLET GT (08:37)
[2024-06-03] MEDS: FERROUS SULFATE 220 MG/5 ML ELIXIR 330 MG GT (08:37)
[2024-06-03] MEDS: levETIRAcetam 750 MG TABLET GT (08:37)
[2024-06-03] MEDS: FAMOTIDINE 20 MG TABLET GT (08:37)
[2024-06-03] MEDS: POTASSIUM CHLORIDE 20 MEQ TAB.ER.PRT GT ×2 (08:38→20:35)
[2024-06-03] MEDS: VALPROIC ACID 250 MG/5 ML 1000 MG GT (08:38)
--- NOTE | 2024-06-03 11:42 | PC.NURSE ---
1116 FAMILY AT BEDSIDE. INFORMED PATIENT HAVING A SEIZURE. WENT TO BEDSIDE. PATIENT NOT RESPONDING TO VOICE OR TOUCH. FOCAL SEIZURE NOTED AND ARMS RIGID AND TO THE SIDES. STAYED WITH PATIENT UNTIL SEIZURE ENDED. INFORMED BY FAMILY SEIZURE STARTED AT 1115. ENDED WHEN I ROOM AT 1117. PATIENT RESPONDING NOW TO TOUCH BY MOVING AWAY. V/S TAKEN, WNL. WILL MONITOR AND IF ANOTHER SEIZURE OBSERVED GIVE ATIVAN ORDERED PRN SEIZURE.
[2024-06-03] MEDS: levETIRAcetam 1,000 MG TABLET 1000 MG GT (20:35)
[2024-06-04] VITALS (9 sets, daily range): BP systolic 103–110; BP diastolic 68–72; PULSE 66–104; RESP 20–26; TEMP 36.3–36.6; O2SAT 98–100
[2024-06-04] MEDS: IPRATROPIUM/ALBUTEROL 3 ML AMPUL.NEB INH ×4 (00:05→18:30)
[2024-06-04] MEDS: LACTULOSE 10 GM/15 ML SOLUTION GT ×2 (05:20→21:42)
[2024-06-04] MEDS: LEVOTHYROXINE 50 MCG TABLET GT (05:20)
[2024-06-04] MEDS: acetaZOLAMIDE 250 MG TABLET GT ×2 (08:55→21:41)
[2024-06-04] MEDS: BUMETANIDE 1 MG TABLET GT ×2 (08:55→21:41)
[2024-06-04] MEDS: MULTIVITAMIN 1 TAB TABLET GT (08:56)
[2024-06-04] MEDS: VALPROIC ACID 250 MG/5 ML 1000 MG GT (08:56)
[2024-06-04] MEDS: FERROUS SULFATE 220 MG/5 ML ELIXIR 330 MG GT (08:56)
[2024-06-04] MEDS: levETIRAcetam 750 MG TABLET GT (08:56)
[2024-06-04] MEDS: POTASSIUM CHLORIDE 20 MEQ TAB.ER.PRT GT ×2 (08:56→21:42)
[2024-06-04] MEDS: FAMOTIDINE 20 MG TABLET GT (08:56)
--- NOTE | 2024-06-04 17:56 | PD.SAPROG ---
Progress Note - SubAcute DIAGNOSIS (1) Chronic respiratory failure with hypoxia: Status: Chronic (2) Dependent on ventilator: Status: Chronic (3) Congestive cardiac failure: Status: Chronic (4) Epilepsy, unspecified, intractable, without status epilepticus: Status: Chronic (5) Anemia: Status: Chronic (6) Hypothyroidism, unspecified: Status: Chronic (7) Developmental disorder of scholastic skills, unspecified: Status: Chronic (8) Age-related osteoporosis without current pathological fracture: Status: Chronic (9) Gastrostomy status: Status: Chronic (10) Tracheostomy status: Status: Chronic SUBJECTIVE Fever:: unchanged (low grade) GI:: none Shortness of Breath:: none GI:: no complaints Pain:: none OBJECTIVE Most recent vital signs: Last Vital Signs Temp 97.9 F 06/04/24 17:32 Pulse 69 06/04/24 17:32 Resp 22 H 06/04/24 17:32 BP 109/69 06/04/24 17:32 Pulse Ox 99 06/04/24 17:32 O2 Del Method Mechanical Ventilation 06/04/24 17:32 FiO2 30 06/04/24 12:10 Neurological:: awake Speech:: nods head and appropriate (Sometimes) Answers questions:: sometimes Respiratory:: lungs clear Cardiovascular: RRR Abdomen: soft and nontender Decubitus:: none Tracheostomy:: to ventilator Feeding per:: G tube Complaints:: none ASSESSMENT & PLAN Assessment: Patient with cognitive function deficits. ventilator dependent. No distress. Stable condition. Diagnosis and treatment reviewed. Pt does not tolerate weaning from Ventilator, attempted very many times. Pt maintains some activities and comfortable. No new issues of pain Plan: Current treatment reviewed and continued
[2024-06-04] MEDS: ACETAMINOPHEN 325 MG TABLET 650 MG GT (20:45)
[2024-06-04] MEDS: levETIRAcetam 1,000 MG TABLET 1000 MG GT (21:41)
[2024-06-05] VITALS (10 sets, daily range): BP systolic 99–129; BP diastolic 62–75; PULSE 67–90; RESP 20–30; TEMP 36.4–37.1; O2SAT 97–100
[2024-06-05] MEDS: IPRATROPIUM/ALBUTEROL 3 ML AMPUL.NEB INH ×4 (00:10→18:30)
[2024-06-05] MEDS: LACTULOSE 10 GM/15 ML SOLUTION GT ×3 (05:56→21:07)
[2024-06-05] MEDS: LEVOTHYROXINE 50 MCG TABLET GT (05:56)
[2024-06-05] MEDS: BUMETANIDE 1 MG TABLET GT ×2 (08:23→21:07)
[2024-06-05] MEDS: acetaZOLAMIDE 250 MG TABLET GT ×2 (08:23→21:07)
[2024-06-05] MEDS: FERROUS SULFATE 220 MG/5 ML ELIXIR 330 MG GT (08:24)
[2024-06-05] MEDS: levETIRAcetam 750 MG TABLET GT (08:24)
[2024-06-05] MEDS: VALPROIC ACID 250 MG/5 ML 1000 MG GT (08:24)
[2024-06-05] MEDS: MULTIVITAMIN 1 TAB TABLET GT (08:24)
[2024-06-05] MEDS: FAMOTIDINE 20 MG TABLET GT (08:24)
[2024-06-05] MEDS: POTASSIUM CHLORIDE 20 MEQ TAB.ER.PRT GT ×2 (08:24→21:07)
[2024-06-05] MEDS: levETIRAcetam 1,000 MG TABLET 1000 MG GT (21:07)
[2024-06-06] VITALS (10 sets, daily range): BP systolic 103–118; BP diastolic 69–78; PULSE 69–103; RESP 21–28; TEMP 36.2–36.8; O2SAT 98–100
[2024-06-06] MEDS: IPRATROPIUM/ALBUTEROL 3 ML AMPUL.NEB INH ×4 (00:10→18:30)
[2024-06-06] MEDS: LEVOTHYROXINE 50 MCG TABLET GT (05:38)
[2024-06-06] MEDS: LACTULOSE 10 GM/15 ML SOLUTION GT ×3 (05:38→21:26)
[2024-06-06] MEDS: acetaZOLAMIDE 250 MG TABLET GT ×2 (09:12→21:25)
[2024-06-06] MEDS: BUMETANIDE 1 MG TABLET GT ×2 (09:15→21:25)
[2024-06-06] MEDS: FAMOTIDINE 20 MG TABLET GT (09:15)
[2024-06-06] MEDS: CARVEDILOL 3.125 MG TABLET GT (09:15)
[2024-06-06] MEDS: levETIRAcetam 750 MG TABLET GT (09:16)
[2024-06-06] MEDS: POTASSIUM CHLORIDE 20 MEQ TAB.ER.PRT GT ×2 (09:16→21:26)
[2024-06-06] MEDS: MULTIVITAMIN 1 TAB TABLET GT (09:16)
[2024-06-06] MEDS: FERROUS SULFATE 220 MG/5 ML ELIXIR 330 MG GT (09:16)
[2024-06-06] MEDS: VALPROIC ACID 250 MG/5 ML 1000 MG GT (09:16)
[2024-06-06] MEDS: levETIRAcetam 1,000 MG TABLET 1000 MG GT (21:25)
[2024-06-07] VITALS (11 sets, daily range): BP systolic 94–150; BP diastolic 61–77; PULSE 65–107; RESP 20–30; TEMP 36.3–36.7; O2SAT 98–99
[2024-06-07] MEDS: IPRATROPIUM/ALBUTEROL 3 ML AMPUL.NEB INH ×4 (00:33→18:48)
[2024-06-07] MEDS: LACTULOSE 10 GM/15 ML SOLUTION GT ×3 (05:18→21:13)
[2024-06-07] MEDS: LEVOTHYROXINE 50 MCG TABLET GT (05:19)
[2024-06-07] MEDS: BUMETANIDE 1 MG TABLET GT ×2 (08:31→20:54)
[2024-06-07] MEDS: acetaZOLAMIDE 250 MG TABLET GT ×2 (08:31→20:53)
[2024-06-07] MEDS: FERROUS SULFATE 220 MG/5 ML ELIXIR 330 MG GT (08:32)
[2024-06-07] MEDS: FAMOTIDINE 20 MG TABLET GT (08:32)
[2024-06-07] MEDS: levETIRAcetam 750 MG TABLET GT (08:32)
[2024-06-07] MEDS: MULTIVITAMIN 1 TAB TABLET GT (08:33)
[2024-06-07] MEDS: POTASSIUM CHLORIDE 20 MEQ TAB.ER.PRT GT ×2 (08:33→20:55)
[2024-06-07] MEDS: VALPROIC ACID 250 MG/5 ML 1000 MG GT (08:33)
[2024-06-07] MEDS: levETIRAcetam 1,000 MG TABLET 1000 MG GT (20:55)
[2024-06-07] MEDS: LOSARTAN 25 MG TABLET GT (20:55)
[2024-06-08] VITALS (10 sets, daily range): BP systolic 98–110; BP diastolic 62–70; PULSE 60–84; RESP 20–25; TEMP 36.1–36.7; O2SAT 97–100
[2024-06-08] MEDS: IPRATROPIUM/ALBUTEROL 3 ML AMPUL.NEB INH ×4 (00:27→19:55)
[2024-06-08] MEDS: LEVOTHYROXINE 50 MCG TABLET GT (05:36)
[2024-06-08] MEDS: LACTULOSE 10 GM/15 ML SOLUTION GT ×3 (05:36→22:11)
[2024-06-08] MEDS: acetaZOLAMIDE 250 MG TABLET GT ×2 (08:28→21:10)
[2024-06-08] MEDS: BUMETANIDE 1 MG TABLET GT ×2 (08:28→21:11)
[2024-06-08] MEDS: FAMOTIDINE 20 MG TABLET GT (08:30)
[2024-06-08] MEDS: FERROUS SULFATE 220 MG/5 ML ELIXIR 330 MG GT (08:30)
[2024-06-08] MEDS: levETIRAcetam 750 MG TABLET GT (08:31)
[2024-06-08] MEDS: MULTIVITAMIN 1 TAB TABLET GT (08:31)
[2024-06-08] MEDS: VALPROIC ACID 250 MG/5 ML 1000 MG GT (08:32)
[2024-06-08] MEDS: POTASSIUM CHLORIDE 20 MEQ TAB.ER.PRT GT ×2 (08:32→21:11)
--- NOTE | 2024-06-08 09:18 | PD.SAPROG ---
Progress Note - SubAcute DIAGNOSIS (1) Chronic respiratory failure with hypoxia: Status: Chronic (2) Dependent on ventilator: Status: Chronic (3) Congestive cardiac failure: Status: Chronic (4) Epilepsy, unspecified, intractable, without status epilepticus: Status: Chronic (5) Anemia: Status: Chronic (6) Hypothyroidism, unspecified: Status: Chronic (7) Developmental disorder of scholastic skills, unspecified: Status: Chronic (8) Age-related osteoporosis without current pathological fracture: Status: Chronic (9) Gastrostomy status: Status: Chronic (10) Tracheostomy status: Status: Chronic SUBJECTIVE Fever:: unchanged (low grade) GI:: none Shortness of Breath:: none GI:: no complaints Pain:: none OBJECTIVE Most recent vital signs: Last Vital Signs Temp 98.0 F 06/08/24 06:00 Pulse 78 06/08/24 08:29 Resp 22 H 06/08/24 06:25 BP 101/70 06/08/24 08:29 Pulse Ox 99 06/08/24 06:25 O2 Del Method Mechanical Ventilation 06/08/24 06:00 FiO2 30 06/08/24 06:25 Neurological:: awake Speech:: nods head and appropriate (Sometimes) Answers questions:: sometimes Respiratory:: lungs clear Cardiovascular: RRR Abdomen: soft and nontender Decubitus:: none Tracheostomy:: to ventilator Feeding per:: G tube Complaints:: none ASSESSMENT & PLAN Assessment: Patient with cognitive function deficits. ventilator dependent. No distress. Stable condition. Diagnosis and treatment reviewed. Pt does not tolerate weaning from Ventilator, attempted very many times. Pt maintains some activities and comfortable. No new issues of pain Plan: Current treatment reviewed and continued
[2024-06-08] MEDS: levETIRAcetam 1,000 MG TABLET 1000 MG GT (21:11)
[2024-06-09] VITALS (11 sets, daily range): BP systolic 95–102; BP diastolic 60–68; PULSE 60–116; RESP 18–24; TEMP 36.4–36.9; O2SAT 97–99
[2024-06-09] MEDS: IPRATROPIUM/ALBUTEROL 3 ML AMPUL.NEB INH ×4 (01:20→19:05)
[2024-06-09] MEDS: LACTULOSE 10 GM/15 ML SOLUTION GT ×2 (05:36→21:50)
[2024-06-09] MEDS: LEVOTHYROXINE 50 MCG TABLET GT (05:37)
[2024-06-09] MEDS: FERROUS SULFATE 220 MG/5 ML ELIXIR 330 MG GT (08:49)
[2024-06-09] MEDS: FAMOTIDINE 20 MG TABLET GT (08:49)
[2024-06-09] MEDS: acetaZOLAMIDE 250 MG TABLET GT ×2 (08:49→20:41)
[2024-06-09] MEDS: VALPROIC ACID 250 MG/5 ML 1000 MG GT (08:50)
[2024-06-09] MEDS: POTASSIUM CHLORIDE 20 MEQ TAB.ER.PRT GT ×2 (08:50→20:42)
[2024-06-09] MEDS: levETIRAcetam 750 MG TABLET GT (08:50)
[2024-06-09] MEDS: MULTIVITAMIN 1 TAB TABLET GT (08:50)
[2024-06-09] MEDS: BUMETANIDE 1 MG TABLET GT (20:41)
[2024-06-09] MEDS: levETIRAcetam 1,000 MG TABLET 1000 MG GT (20:42)
[2024-06-10] VITALS (11 sets, daily range): BP systolic 94–127; BP diastolic 60–72; PULSE 56–92; RESP 20–25; TEMP 36.4–36.8; O2SAT 97–100
[2024-06-10] MEDS: IPRATROPIUM/ALBUTEROL 3 ML AMPUL.NEB INH ×4 (00:05→18:05)
[2024-06-10] MEDS: LACTULOSE 10 GM/15 ML SOLUTION GT ×3 (05:14→21:55)
[2024-06-10] MEDS: LEVOTHYROXINE 50 MCG TABLET GT (05:14)
[2024-06-10] MEDS: acetaZOLAMIDE 250 MG TABLET GT ×2 (08:40→20:31)
[2024-06-10] MEDS: FERROUS SULFATE 220 MG/5 ML ELIXIR 330 MG GT (08:40)
[2024-06-10] MEDS: levETIRAcetam 750 MG TABLET GT (08:40)
[2024-06-10] MEDS: POTASSIUM CHLORIDE 20 MEQ TAB.ER.PRT GT ×2 (08:40→20:31)
[2024-06-10] MEDS: MULTIVITAMIN 1 TAB TABLET GT (08:40)
[2024-06-10] MEDS: VALPROIC ACID 250 MG/5 ML 1000 MG GT (08:40)
[2024-06-10] MEDS: FAMOTIDINE 20 MG TABLET GT (08:40)
[2024-06-10] MEDS: BUMETANIDE 1 MG TABLET GT ×2 (08:41→20:31)
[2024-06-10] MEDS: levETIRAcetam 1,000 MG TABLET 1000 MG GT (20:31)
[2024-06-11] VITALS (12 sets, daily range): BP systolic 99–134; BP diastolic 58–77; PULSE 68–106; RESP 21–27; TEMP 36.3–37.1; O2SAT 95–100
[2024-06-11] MEDS: IPRATROPIUM/ALBUTEROL 3 ML AMPUL.NEB INH ×3 (01:15→18:35)
[2024-06-11] MEDS: LACTULOSE 10 GM/15 ML SOLUTION GT ×3 (05:10→21:26)
[2024-06-11] MEDS: LEVOTHYROXINE 50 MCG TABLET GT (05:10)
[2024-06-11] MEDS: acetaZOLAMIDE 250 MG TABLET GT ×2 (09:06→20:48)
[2024-06-11] MEDS: levETIRAcetam 750 MG TABLET GT (09:08)
[2024-06-11] MEDS: POTASSIUM CHLORIDE 20 MEQ TAB.ER.PRT GT ×2 (09:08→20:48)
[2024-06-11] MEDS: VALPROIC ACID 250 MG/5 ML 1000 MG GT (09:08)
[2024-06-11] MEDS: FERROUS SULFATE 220 MG/5 ML ELIXIR 330 MG GT (09:08)
[2024-06-11] MEDS: MULTIVITAMIN 1 TAB TABLET GT (09:08)
[2024-06-11] MEDS: BUMETANIDE 1 MG TABLET GT ×2 (09:09→20:48)
[2024-06-11] MEDS: FAMOTIDINE 20 MG TABLET GT (09:09)
[2024-06-11] MEDS: levETIRAcetam 1,000 MG TABLET 1000 MG GT (20:48)
[2024-06-12] VITALS (9 sets, daily range): BP systolic 97–126; BP diastolic 63–83; PULSE 54–103; RESP 20–29; TEMP 36.4–36.7; O2SAT 98–100
[2024-06-12] MEDS: IPRATROPIUM/ALBUTEROL 3 ML AMPUL.NEB INH ×4 (00:05→18:20)
[2024-06-12] MEDS: LACTULOSE 10 GM/15 ML SOLUTION GT ×3 (05:10→21:04)
[2024-06-12] MEDS: LEVOTHYROXINE 50 MCG TABLET GT (05:10)
[2024-06-12] MEDS: acetaZOLAMIDE 250 MG TABLET GT ×2 (08:35→21:03)
[2024-06-12] MEDS: POTASSIUM CHLORIDE 20 MEQ TAB.ER.PRT GT ×2 (08:36→21:04)
[2024-06-12] MEDS: FAMOTIDINE 20 MG TABLET GT (08:36)
[2024-06-12] MEDS: CARVEDILOL 3.125 MG TABLET GT (08:36)
[2024-06-12] MEDS: VALPROIC ACID 250 MG/5 ML 1000 MG GT (08:36)
[2024-06-12] MEDS: levETIRAcetam 750 MG TABLET GT (08:36)
[2024-06-12] MEDS: BUMETANIDE 1 MG TABLET GT ×2 (08:36→21:04)
[2024-06-12] MEDS: FERROUS SULFATE 220 MG/5 ML ELIXIR 330 MG GT (08:36)
[2024-06-12] MEDS: MULTIVITAMIN 1 TAB TABLET GT (08:36)
--- NOTE | 2024-06-12 20:53 | PD.SAPROG ---
Progress Note - SubAcute DIAGNOSIS (1) Chronic respiratory failure with hypoxia: Status: Chronic (2) Dependent on ventilator: Status: Chronic (3) Congestive cardiac failure: Status: Chronic (4) Epilepsy, unspecified, intractable, without status epilepticus: Status: Chronic (5) Anemia: Status: Chronic (6) Hypothyroidism, unspecified: Status: Chronic (7) Developmental disorder of scholastic skills, unspecified: Status: Chronic (8) Age-related osteoporosis without current pathological fracture: Status: Chronic (9) Gastrostomy status: Status: Chronic (10) Tracheostomy status: Status: Chronic SUBJECTIVE Fever:: unchanged (low grade) GI:: none Shortness of Breath:: none GI:: no complaints Pain:: none OBJECTIVE Most recent vital signs: Last Vital Signs Temp 97.6 F 06/12/24 17:07 Pulse 82 06/12/24 17:07 Resp 22 H 06/12/24 17:07 BP 106/75 06/12/24 17:07 Pulse Ox 100 06/12/24 17:07 O2 Del Method Mechanical Ventilation 06/12/24 05:45 FiO2 30 06/12/24 13:53 Neurological:: awake Speech:: nods head and appropriate (Sometimes) Answers questions:: sometimes Respiratory:: lungs clear Cardiovascular: RRR Abdomen: soft and nontender Decubitus:: none Tracheostomy:: to ventilator Feeding per:: G tube Complaints:: none ASSESSMENT & PLAN Assessment: Patient with cognitive function deficits. ventilator dependent. No distress. Stable condition. Diagnosis and treatment reviewed. Pt does not tolerate weaning from Ventilator, attempted very many times. Pt maintains some activities and comfortable. No new issues of pain Plan: Current treatment reviewed and continued
[2024-06-12] MEDS: levETIRAcetam 1,000 MG TABLET 1000 MG GT (21:04)
[2024-06-13] VITALS (12 sets, daily range): BP systolic 97–121; BP diastolic 63–71; PULSE 56–105; RESP 19–34; TEMP 36.3–37.2; O2SAT 95–100
[2024-06-13] MEDS: IPRATROPIUM/ALBUTEROL 3 ML AMPUL.NEB INH ×4 (00:20→16:25)
[2024-06-13] MEDS: LACTULOSE 10 GM/15 ML SOLUTION GT ×2 (05:10→13:24)
[2024-06-13] MEDS: LEVOTHYROXINE 50 MCG TABLET GT (05:10)
[2024-06-13] MEDS: CARVEDILOL 3.125 MG TABLET GT (08:50)
[2024-06-13] MEDS: MULTIVITAMIN 1 TAB TABLET GT (08:50)
[2024-06-13] MEDS: VALPROIC ACID 250 MG/5 ML 1000 MG GT (08:50)
[2024-06-13] MEDS: BUMETANIDE 1 MG TABLET GT ×2 (08:50→20:37)
[2024-06-13] MEDS: FAMOTIDINE 20 MG TABLET GT (08:50)
[2024-06-13] MEDS: acetaZOLAMIDE 250 MG TABLET GT ×2 (08:50→20:36)
[2024-06-13] MEDS: levETIRAcetam 750 MG TABLET GT (08:50)
[2024-06-13] MEDS: POTASSIUM CHLORIDE 20 MEQ TAB.ER.PRT GT ×2 (08:50→20:39)
[2024-06-13] MEDS: FERROUS SULFATE 220 MG/5 ML ELIXIR 330 MG GT (08:50)
[2024-06-13] MEDS: levETIRAcetam 1,000 MG TABLET 1000 MG GT (20:38)
[2024-06-14] VITALS (8 sets, daily range): BP systolic 96–150; BP diastolic 57–88; PULSE 52–100; RESP 20–26; TEMP 36.2–36.6; O2SAT 97–100
[2024-06-14] MEDS: IPRATROPIUM/ALBUTEROL 3 ML AMPUL.NEB INH ×4 (00:15→19:20)
[2024-06-14] MEDS: LACTULOSE 10 GM/15 ML SOLUTION GT ×3 (05:15→21:37)
[2024-06-14] MEDS: LEVOTHYROXINE 50 MCG TABLET GT (05:15)
[2024-06-14] MEDS: acetaZOLAMIDE 250 MG TABLET GT ×2 (08:18→21:37)
[2024-06-14] MEDS: CARVEDILOL 3.125 MG TABLET GT (08:18)
[2024-06-14] MEDS: BUMETANIDE 1 MG TABLET GT ×2 (08:18→21:37)
[2024-06-14] MEDS: POTASSIUM CHLORIDE 20 MEQ TAB.ER.PRT GT ×2 (08:19→21:37)
[2024-06-14] MEDS: FERROUS SULFATE 220 MG/5 ML ELIXIR 330 MG GT (08:19)
[2024-06-14] MEDS: FAMOTIDINE 20 MG TABLET GT (08:19)
[2024-06-14] MEDS: levETIRAcetam 750 MG TABLET GT (08:19)
[2024-06-14] MEDS: VALPROIC ACID 250 MG/5 ML 1000 MG GT (08:19)
[2024-06-14] MEDS: MULTIVITAMIN 1 TAB TABLET GT (08:19)
[2024-06-14] MEDS: levETIRAcetam 1,000 MG TABLET 1000 MG GT (21:36)
[2024-06-15] VITALS (11 sets, daily range): BP systolic 94–103; BP diastolic 57–69; PULSE 65–77; RESP 21–27; TEMP 36.4–37; O2SAT 97–99
[2024-06-15] MEDS: IPRATROPIUM/ALBUTEROL 3 ML AMPUL.NEB INH ×4 (01:05→18:10)
[2024-06-15] MEDS: LACTULOSE 10 GM/15 ML SOLUTION GT ×3 (06:05→22:00)
[2024-06-15] MEDS: LEVOTHYROXINE 50 MCG TABLET GT (06:05)
[2024-06-15] MEDS: acetaZOLAMIDE 250 MG TABLET GT ×2 (08:40→20:23)
[2024-06-15] MEDS: VALPROIC ACID 250 MG/5 ML 1000 MG GT (08:42)
[2024-06-15] MEDS: FERROUS SULFATE 220 MG/5 ML ELIXIR 330 MG GT (08:42)
[2024-06-15] MEDS: BUMETANIDE 1 MG TABLET GT ×2 (08:42→20:23)
[2024-06-15] MEDS: MULTIVITAMIN 1 TAB TABLET GT (08:42)
[2024-06-15] MEDS: levETIRAcetam 750 MG TABLET GT (08:42)
[2024-06-15] MEDS: POTASSIUM CHLORIDE 20 MEQ TAB.ER.PRT GT ×2 (08:42→20:24)
[2024-06-15] MEDS: FAMOTIDINE 20 MG TABLET GT (08:42)
[2024-06-15] MEDS: levETIRAcetam 1,000 MG TABLET 1000 MG GT (20:24)
[2024-06-16] VITALS (9 sets, daily range): BP systolic 99–120; BP diastolic 57–70; PULSE 51–97; RESP 20–28; TEMP 36.4–37; O2SAT 98–100
[2024-06-16] MEDS: IPRATROPIUM/ALBUTEROL 3 ML AMPUL.NEB INH ×4 (00:05→13:10)
[2024-06-16] MEDS: LEVOTHYROXINE 50 MCG TABLET GT (05:27)
[2024-06-16] MEDS: acetaZOLAMIDE 250 MG TABLET GT ×2 (08:38→20:40)
[2024-06-16] MEDS: VALPROIC ACID 250 MG/5 ML 1000 MG GT (08:40)
[2024-06-16] MEDS: MULTIVITAMIN 1 TAB TABLET GT (08:40)
[2024-06-16] MEDS: FERROUS SULFATE 220 MG/5 ML ELIXIR 330 MG GT (08:40)
[2024-06-16] MEDS: levETIRAcetam 750 MG TABLET GT (08:40)
[2024-06-16] MEDS: FAMOTIDINE 20 MG TABLET GT (08:40)
[2024-06-16] MEDS: BUMETANIDE 1 MG TABLET GT ×2 (08:40→20:40)
[2024-06-16] MEDS: POTASSIUM CHLORIDE 20 MEQ TAB.ER.PRT GT ×2 (08:40→20:41)
[2024-06-16] MEDS: LACTULOSE 10 GM/15 ML SOLUTION GT ×2 (13:19→21:32)
--- NOTE | 2024-06-16 15:00 | PC.SS ---
Room visit: Resident remains conserved by his father and remains a [facility] client. Resident is unable to make needs known. Resident is laying in bed with head of the bed elevated with call light properly placed with no signs of distress. Resident remains on vent with trach in place and GT for medication and nutrition. Resident has no changes in care or condition he will remain in current care as he is unable to return home due to heavy and complicated care regimen. All subacute care needs to be met in facility by staff.
--- NOTE | 2024-06-16 15:21 | PC.NURSE ---
Pneumo vaccine unavailale, RN aware
--- NOTE | 2024-06-16 15:46 | PC.NURSE ---
Ordered PCV 20 for resident and has not arrived for administration yet.
[2024-06-16] MEDS: levETIRAcetam 1,000 MG TABLET 1000 MG GT (20:41)
[2024-06-16] MEDS: guaiFENesin Liq 100 MG/5 ML LIQUID 300 MG GT (20:42)
--- NOTE | 2024-06-16 20:44 | PD.SAPROG ---
Progress Note - SubAcute DIAGNOSIS (1) Chronic respiratory failure with hypoxia: Status: Chronic (2) Dependent on ventilator: Status: Chronic (3) Congestive cardiac failure: Status: Chronic (4) Epilepsy, unspecified, intractable, without status epilepticus: Status: Chronic (5) Anemia: Status: Chronic (6) Hypothyroidism, unspecified: Status: Chronic (7) Developmental disorder of scholastic skills, unspecified: Status: Chronic (8) Age-related osteoporosis without current pathological fracture: Status: Chronic (9) Gastrostomy status: Status: Chronic (10) Tracheostomy status: Status: Chronic SUBJECTIVE Fever:: unchanged (low grade) GI:: none Shortness of Breath:: none GI:: no complaints Pain:: none OBJECTIVE Most recent vital signs: Last Vital Signs Temp 98.1 F 06/16/24 12:00 Pulse 74 06/16/24 20:40 Resp 25 H 06/16/24 13:10 BP 110/68 06/16/24 20:40 Pulse Ox 100 06/16/24 13:10 O2 Del Method Mechanical Ventilation 06/16/24 12:00 FiO2 30 06/16/24 13:10 Neurological:: awake Speech:: nods head and appropriate (Sometimes) Answers questions:: sometimes Respiratory:: lungs clear Cardiovascular: RRR Abdomen: soft and nontender Decubitus:: none Tracheostomy:: to ventilator Feeding per:: G tube Complaints:: none ASSESSMENT & PLAN Assessment: Patient with cognitive function deficits. ventilator dependent. No distress. Stable condition. Diagnosis and treatment reviewed. Pt does not tolerate weaning from Ventilator, attempted very many times. Pt maintains some activities and comfortable. No new issues of pain/ discomfort. Prognostic outlook limited. Plan: Current treatment reviewed and continued
[2024-06-17] VITALS (10 sets, daily range): BP systolic 94–114; BP diastolic 54–78; PULSE 59–90; RESP 20–24; TEMP 36.2–36.6; O2SAT 98–100
[2024-06-17] MEDS: LACTULOSE 10 GM/15 ML SOLUTION GT ×3 (05:29→21:25)
[2024-06-17] MEDS: LEVOTHYROXINE 50 MCG TABLET GT (05:29)
[2024-06-17] MEDS: IPRATROPIUM/ALBUTEROL 3 ML AMPUL.NEB INH ×4 (06:35→16:35)
[2024-06-17] MEDS: acetaZOLAMIDE 250 MG TABLET GT ×2 (08:58→20:19)
[2024-06-17] MEDS: BUMETANIDE 1 MG TABLET GT ×2 (08:58→20:19)
[2024-06-17] MEDS: FAMOTIDINE 20 MG TABLET GT (08:59)
[2024-06-17] MEDS: FERROUS SULFATE 220 MG/5 ML ELIXIR 330 MG GT (08:59)
[2024-06-17] MEDS: levETIRAcetam 750 MG TABLET GT (09:00)
[2024-06-17] MEDS: MULTIVITAMIN 1 TAB TABLET GT (09:00)
[2024-06-17] MEDS: POTASSIUM CHLORIDE 20 MEQ TAB.ER.PRT GT ×2 (09:00→20:20)
[2024-06-17] MEDS: VALPROIC ACID 250 MG/5 ML 1000 MG GT (09:03)
[2024-06-17] MEDS: levETIRAcetam 1,000 MG TABLET 1000 MG GT (20:20)
[2024-06-17] MEDS: LOSARTAN 25 MG TABLET GT (20:20)
[2024-06-17] MEDS: guaiFENesin Liq 100 MG/5 ML LIQUID 300 MG GT (20:30)
[2024-06-18] VITALS (9 sets, daily range): BP systolic 97–123; BP diastolic 59–73; PULSE 59–86; RESP 22–28; TEMP 36.5–36.7; O2SAT 97–100
[2024-06-18] MEDS: LACTULOSE 10 GM/15 ML SOLUTION GT ×2 (05:16→13:59)
[2024-06-18] MEDS: LEVOTHYROXINE 50 MCG TABLET GT (05:16)
[2024-06-18] MEDS: IPRATROPIUM/ALBUTEROL 3 ML AMPUL.NEB INH ×3 (07:15→19:02)
[2024-06-18] MEDS: acetaZOLAMIDE 250 MG TABLET GT ×2 (08:17→20:36)
[2024-06-18] MEDS: FAMOTIDINE 20 MG TABLET GT (08:18)
[2024-06-18] MEDS: BUMETANIDE 1 MG TABLET GT ×2 (08:18→20:36)
[2024-06-18] MEDS: CARVEDILOL 3.125 MG TABLET GT (08:18)
[2024-06-18] MEDS: levETIRAcetam 750 MG TABLET GT (08:19)
[2024-06-18] MEDS: POTASSIUM CHLORIDE 20 MEQ TAB.ER.PRT GT ×2 (08:19→20:37)
[2024-06-18] MEDS: VALPROIC ACID 250 MG/5 ML 1000 MG GT (08:19)
[2024-06-18] MEDS: FERROUS SULFATE 220 MG/5 ML ELIXIR 330 MG GT (08:19)
[2024-06-18] MEDS: MULTIVITAMIN 1 TAB TABLET GT (08:19)
[2024-06-18] MEDS: levETIRAcetam 1,000 MG TABLET 1000 MG GT (20:37)
[2024-06-18] MEDS: ACETAMINOPHEN 325 MG TABLET 650 MG GT (20:38)
[2024-06-19] VITALS (11 sets, daily range): BP systolic 102–119; BP diastolic 66–81; PULSE 54–81; RESP 20–24; TEMP 36.2–36.6; O2SAT 97–100
[2024-06-19] MEDS: IPRATROPIUM/ALBUTEROL 3 ML AMPUL.NEB INH ×4 (00:56→18:30)
[2024-06-19] MEDS: LEVOTHYROXINE 50 MCG TABLET GT (05:13)
[2024-06-19] MEDS: BUMETANIDE 1 MG TABLET GT ×2 (08:27→20:13)
[2024-06-19] MEDS: acetaZOLAMIDE 250 MG TABLET GT ×2 (08:27→20:13)
[2024-06-19] MEDS: FERROUS SULFATE 220 MG/5 ML ELIXIR 330 MG GT (08:28)
[2024-06-19] MEDS: FAMOTIDINE 20 MG TABLET GT (08:28)
[2024-06-19] MEDS: MULTIVITAMIN 1 TAB TABLET GT (08:29)
[2024-06-19] MEDS: levETIRAcetam 750 MG TABLET GT (08:29)
[2024-06-19] MEDS: POTASSIUM CHLORIDE 20 MEQ TAB.ER.PRT GT ×2 (08:29→20:15)
[2024-06-19] MEDS: VALPROIC ACID 250 MG/5 ML 1000 MG GT (08:30)
[2024-06-19] MEDS: ACETAMINOPHEN 325 MG TABLET 650 MG GT ×2 (08:30→20:15)
[2024-06-19] MEDS: LACTULOSE 10 GM/15 ML SOLUTION GT ×2 (13:29→21:31)
[2024-06-19] MEDS: levETIRAcetam 1,000 MG TABLET 1000 MG GT (20:14)
[2024-06-19] MEDS: LOSARTAN 25 MG TABLET GT (20:15)
[2024-06-20] VITALS (11 sets, daily range): BP systolic 92–119; BP diastolic 57–69; PULSE 67–104; RESP 20–24; TEMP 36.3–36.6; O2SAT 97–99
[2024-06-20] MEDS: IPRATROPIUM/ALBUTEROL 3 ML AMPUL.NEB INH ×4 (01:10→19:05)
[2024-06-20] MEDS: LACTULOSE 10 GM/15 ML SOLUTION GT ×3 (05:41→21:28)
[2024-06-20] MEDS: LEVOTHYROXINE 50 MCG TABLET GT (05:41)
[2024-06-20] MEDS: acetaZOLAMIDE 250 MG TABLET GT ×2 (08:46→20:24)
[2024-06-20] MEDS: FAMOTIDINE 20 MG TABLET GT (08:49)
[2024-06-20] MEDS: MULTIVITAMIN 1 TAB TABLET GT (08:49)
[2024-06-20] MEDS: FERROUS SULFATE 220 MG/5 ML ELIXIR 330 MG GT (08:49)
[2024-06-20] MEDS: BUMETANIDE 1 MG TABLET GT ×2 (08:49→20:24)
[2024-06-20] MEDS: VALPROIC ACID 250 MG/5 ML 1000 MG GT (08:49)
[2024-06-20] MEDS: levETIRAcetam 750 MG TABLET GT (08:49)
[2024-06-20] MEDS: POTASSIUM CHLORIDE 20 MEQ TAB.ER.PRT GT ×2 (08:49→20:25)
--- NOTE | 2024-06-20 10:50 | PD.SAPROG ---
Progress Note - SubAcute DIAGNOSIS (1) Chronic respiratory failure with hypoxia: Status: Chronic (2) Dependent on ventilator: Status: Chronic (3) Congestive cardiac failure: Status: Chronic (4) Epilepsy, unspecified, intractable, without status epilepticus: Status: Chronic (5) Anemia: Status: Chronic (6) Hypothyroidism, unspecified: Status: Chronic (7) Developmental disorder of scholastic skills, unspecified: Status: Chronic (8) Age-related osteoporosis without current pathological fracture: Status: Chronic (9) Gastrostomy status: Status: Chronic (10) Tracheostomy status: Status: Chronic SUBJECTIVE Fever:: unchanged (low grade) GI:: none Shortness of Breath:: none GI:: no complaints Pain:: none OBJECTIVE Most recent vital signs: Last Vital Signs Temp 97.9 F 06/20/24 06:00 Pulse 76 06/20/24 08:49 Resp 20 06/20/24 07:16 BP 92/58 L 06/20/24 08:49 Pulse Ox 99 06/20/24 07:16 O2 Del Method Mechanical Ventilation 06/20/24 06:00 FiO2 40 06/20/24 09:00 Neurological:: awake Speech:: nods head and appropriate (Sometimes) Answers questions:: sometimes Respiratory:: lungs clear Cardiovascular: RRR Abdomen: soft and nontender Decubitus:: none Tracheostomy:: to ventilator Feeding per:: G tube Complaints:: none ASSESSMENT & PLAN Assessment: Patient with cognitive function deficits. ventilator dependent. No distress. Stable condition. Diagnosis and treatment reviewed. Pt does not tolerate weaning from Ventilator, attempted very many times. Pt maintains some activities and comfortable. No new issues of pain/ discomfort. Prognostic outlook limited. Family aware and kept updated. Plan: Current treatment reviewed and continued
[2024-06-20] MEDS: levETIRAcetam 1,000 MG TABLET 1000 MG GT (20:25)
[2024-06-21] VITALS (9 sets, daily range): BP systolic 104–111; BP diastolic 63–76; PULSE 61–81; RESP 20–24; TEMP 36.4; O2SAT 97–100
[2024-06-21] MEDS: IPRATROPIUM/ALBUTEROL 3 ML AMPUL.NEB INH ×4 (01:05→18:15)
[2024-06-21] MEDS: LACTULOSE 10 GM/15 ML SOLUTION GT ×3 (05:20→21:00)
[2024-06-21] MEDS: LEVOTHYROXINE 50 MCG TABLET GT (05:20)
[2024-06-21] MEDS: ACETAMINOPHEN 325 MG TABLET 650 MG GT (08:23)
[2024-06-21] MEDS: FAMOTIDINE 20 MG TABLET GT (08:24)
[2024-06-21] MEDS: guaiFENesin Liq 100 MG/5 ML LIQUID 300 MG GT (08:24)
[2024-06-21] MEDS: acetaZOLAMIDE 250 MG TABLET GT ×2 (08:24→20:27)
[2024-06-21] MEDS: FERROUS SULFATE 220 MG/5 ML ELIXIR 330 MG GT (08:24)
[2024-06-21] MEDS: BUMETANIDE 1 MG TABLET GT ×2 (08:24→20:27)
[2024-06-21] MEDS: POTASSIUM CHLORIDE 20 MEQ TAB.ER.PRT GT ×2 (08:25→20:29)
[2024-06-21] MEDS: VALPROIC ACID 250 MG/5 ML 1000 MG GT (08:25)
[2024-06-21] MEDS: MULTIVITAMIN 1 TAB TABLET GT (08:25)
[2024-06-21] MEDS: levETIRAcetam 750 MG TABLET GT (08:25)
[2024-06-21] MEDS: levETIRAcetam 1,000 MG TABLET 1000 MG GT (20:27)
[2024-06-22] VITALS (10 sets, daily range): BP systolic 99–115; BP diastolic 59–68; PULSE 71–101; RESP 20–222; TEMP 36.4–36.9; O2SAT 97–99
[2024-06-22] MEDS: IPRATROPIUM/ALBUTEROL 3 ML AMPUL.NEB INH ×4 (00:04→18:20)
[2024-06-22] MEDS: LEVOTHYROXINE 50 MCG TABLET GT (05:12)
[2024-06-22] MEDS: LACTULOSE 10 GM/15 ML SOLUTION GT ×3 (05:12→21:04)
[2024-06-22] MEDS: CARVEDILOL 3.125 MG TABLET GT (08:27)
[2024-06-22] MEDS: BUMETANIDE 1 MG TABLET GT ×2 (08:27→20:19)
[2024-06-22] MEDS: acetaZOLAMIDE 250 MG TABLET GT ×2 (08:27→20:18)
[2024-06-22] MEDS: levETIRAcetam 750 MG TABLET GT (08:28)
[2024-06-22] MEDS: FAMOTIDINE 20 MG TABLET GT (08:28)
[2024-06-22] MEDS: FERROUS SULFATE 220 MG/5 ML ELIXIR 330 MG GT (08:28)
[2024-06-22] MEDS: POTASSIUM CHLORIDE 20 MEQ TAB.ER.PRT GT ×2 (08:29→20:19)
[2024-06-22] MEDS: VALPROIC ACID 250 MG/5 ML 1000 MG GT (08:29)
[2024-06-22] MEDS: MULTIVITAMIN 1 TAB TABLET GT (08:29)
[2024-06-22] MEDS: levETIRAcetam 1,000 MG TABLET 1000 MG GT (20:19)
[2024-06-23] VITALS (11 sets, daily range): BP systolic 99–112; BP diastolic 62–72; PULSE 45–88; RESP 20–23; TEMP 36.4–36.9; O2SAT 96–100
[2024-06-23] MEDS: IPRATROPIUM/ALBUTEROL 3 ML AMPUL.NEB INH ×4 (00:37→18:18)
[2024-06-23] MEDS: LEVOTHYROXINE 50 MCG TABLET GT (05:15)
[2024-06-23] MEDS: FAMOTIDINE 20 MG TABLET GT (09:02)
[2024-06-23] MEDS: acetaZOLAMIDE 250 MG TABLET GT ×2 (09:02→20:16)
[2024-06-23] MEDS: BUMETANIDE 1 MG TABLET GT ×2 (09:02→20:23)
[2024-06-23] MEDS: levETIRAcetam 750 MG TABLET GT (09:02)
[2024-06-23] MEDS: FERROUS SULFATE 220 MG/5 ML ELIXIR 330 MG GT (09:02)
[2024-06-23] MEDS: MULTIVITAMIN 1 TAB TABLET GT (09:03)
[2024-06-23] MEDS: POTASSIUM CHLORIDE 20 MEQ TAB.ER.PRT GT ×2 (09:03→20:17)
[2024-06-23] MEDS: VALPROIC ACID 250 MG/5 ML 1000 MG GT (09:03)
[2024-06-23] MEDS: LACTULOSE 10 GM/15 ML SOLUTION GT ×2 (14:11→21:25)
--- NOTE | 2024-06-23 15:16 | PC.SS ---
Room Visit: Resident remains in current care with no changes in care or condition. Remains on vent with trach in place and GT for medication and nutrition. Resident is unable to make needs known, resident remains conserved by his father and continues to be a [facility] client. Resident will remain in current care and will continue to have all subacute care needs met by staff. No changes in mood and behavior.
[2024-06-23] MEDS: levETIRAcetam 1,000 MG TABLET 1000 MG GT (20:17)
[2024-06-23] MEDS: LOSARTAN 25 MG TABLET GT (20:24)
[2024-06-24] VITALS (12 sets, daily range): BP systolic 102–136; BP diastolic 57–87; PULSE 69–100; RESP 20–26; TEMP 36.2–36.6; O2SAT 97–99
[2024-06-24] MEDS: IPRATROPIUM/ALBUTEROL 3 ML AMPUL.NEB INH ×4 (00:05→19:15)
[2024-06-24] MEDS: LACTULOSE 10 GM/15 ML SOLUTION GT ×3 (05:08→21:12)
[2024-06-24] MEDS: LEVOTHYROXINE 50 MCG TABLET GT (05:09)
[2024-06-24] MEDS: acetaZOLAMIDE 250 MG TABLET GT ×2 (08:41→20:02)
[2024-06-24] MEDS: FERROUS SULFATE 220 MG/5 ML ELIXIR 330 MG GT (08:43)
[2024-06-24] MEDS: levETIRAcetam 750 MG TABLET GT (08:43)
[2024-06-24] MEDS: FAMOTIDINE 20 MG TABLET GT (08:43)
[2024-06-24] MEDS: POTASSIUM CHLORIDE 20 MEQ TAB.ER.PRT GT ×2 (08:43→20:03)
[2024-06-24] MEDS: VALPROIC ACID 250 MG/5 ML 1000 MG GT (08:43)
[2024-06-24] MEDS: MULTIVITAMIN 1 TAB TABLET GT (08:43)
[2024-06-24] MEDS: BUMETANIDE 1 MG TABLET GT ×2 (08:44→20:02)
--- NOTE | 2024-06-24 17:25 | PD.SAPROG ---
Progress Note - SubAcute DIAGNOSIS (1) Chronic respiratory failure with hypoxia: Status: Chronic (2) Dependent on ventilator: Status: Chronic (3) Congestive cardiac failure: Status: Chronic (4) Epilepsy, unspecified, intractable, without status epilepticus: Status: Chronic (5) Anemia: Status: Chronic (6) Hypothyroidism, unspecified: Status: Chronic (7) Developmental disorder of scholastic skills, unspecified: Status: Chronic (8) Age-related osteoporosis without current pathological fracture: Status: Chronic (9) Gastrostomy status: Status: Chronic (10) Tracheostomy status: Status: Chronic SUBJECTIVE Fever:: unchanged (low grade) GI:: none Shortness of Breath:: none GI:: no complaints Pain:: none OBJECTIVE Most recent vital signs: Last Vital Signs Temp 98.2 F 06/26/24 17:20 Pulse 71 06/26/24 17:20 Resp 21 H 06/26/24 17:20 BP 101/50 L 06/26/24 17:20 Pulse Ox 98 06/26/24 17:20 O2 Del Method Mechanical Ventilation 06/26/24 17:20 FiO2 30 06/26/24 12:23 Neurological:: awake Speech:: nods head and appropriate (Sometimes) Answers questions:: sometimes Respiratory:: lungs clear Cardiovascular: RRR Abdomen: soft and nontender Decubitus:: none Tracheostomy:: to ventilator Feeding per:: G tube Complaints:: none ASSESSMENT & PLAN Assessment: Patient with cognitive function deficits. ventilator dependent. No distress. Stable condition. Diagnosis and treatment reviewed. Pt does not tolerate weaning from Ventilator, attempted very many times. Pt maintains some activities and comfortable. No new issues of pain/ discomfort. Prognostic outlook limited. Family aware and kept updated. Plan: Current treatment reviewed and continued
[2024-06-24] MEDS: levETIRAcetam 1,000 MG TABLET 1000 MG GT (20:03)
[2024-06-24] MEDS: ACETAMINOPHEN 325 MG TABLET 650 MG GT (20:04)
[2024-06-25] VITALS (11 sets, daily range): BP systolic 93–107; BP diastolic 61–71; PULSE 67–91; RESP 20–25; TEMP 36.1–36.3; O2SAT 97–100
[2024-06-25] MEDS: IPRATROPIUM/ALBUTEROL 3 ML AMPUL.NEB INH ×4 (00:47→18:15)
[2024-06-25] MEDS: LACTULOSE 10 GM/15 ML SOLUTION GT ×3 (05:28→21:17)
[2024-06-25] MEDS: LEVOTHYROXINE 50 MCG TABLET GT (05:28)
[2024-06-25] MEDS: acetaZOLAMIDE 250 MG TABLET GT ×2 (08:26→20:15)
[2024-06-25] MEDS: MULTIVITAMIN 1 TAB TABLET GT (08:30)
[2024-06-25] MEDS: POTASSIUM CHLORIDE 20 MEQ TAB.ER.PRT GT ×2 (08:30→20:17)
[2024-06-25] MEDS: FERROUS SULFATE 220 MG/5 ML ELIXIR 330 MG GT (08:30)
[2024-06-25] MEDS: levETIRAcetam 750 MG TABLET GT (08:30)
[2024-06-25] MEDS: FAMOTIDINE 20 MG TABLET GT (08:30)
[2024-06-25] MEDS: VALPROIC ACID 250 MG/5 ML 1000 MG GT (08:30)
[2024-06-25] MEDS: BUMETANIDE 1 MG TABLET GT ×2 (08:31→20:16)
[2024-06-25] MEDS: levETIRAcetam 1,000 MG TABLET 1000 MG GT (20:17)
[2024-06-26] VITALS (12 sets, daily range): BP systolic 92–132; BP diastolic 47–66; PULSE 56–98; RESP 20–29; TEMP 36.3–36.8; O2SAT 95–100
[2024-06-26] MEDS: IPRATROPIUM/ALBUTEROL 3 ML AMPUL.NEB INH ×4 (00:25→18:45)
[2024-06-26] MEDS: LEVOTHYROXINE 50 MCG TABLET GT (05:20)
[2024-06-26] MEDS: LACTULOSE 10 GM/15 ML SOLUTION GT ×3 (05:20→21:41)
[2024-06-26] MEDS: FAMOTIDINE 20 MG TABLET GT (09:15)
[2024-06-26] MEDS: FERROUS SULFATE 220 MG/5 ML ELIXIR 330 MG GT (09:15)
[2024-06-26] MEDS: acetaZOLAMIDE 250 MG TABLET GT ×2 (09:15→20:24)
[2024-06-26] MEDS: VALPROIC ACID 250 MG/5 ML 1000 MG GT (09:20)
[2024-06-26] MEDS: POTASSIUM CHLORIDE 20 MEQ TAB.ER.PRT GT ×2 (09:20→20:29)
[2024-06-26] MEDS: MULTIVITAMIN 1 TAB TABLET GT (09:20)
[2024-06-26] MEDS: levETIRAcetam 750 MG TABLET GT (09:20)
[2024-06-26] MEDS: BUMETANIDE 1 MG TABLET GT ×2 (12:40→20:28)
[2024-06-26] MEDS: levETIRAcetam 1,000 MG TABLET 1000 MG GT (20:29)
[2024-06-27] VITALS (11 sets, daily range): BP systolic 103–117; BP diastolic 68–74; PULSE 59–99; RESP 20–28; TEMP 36.4–36.7; O2SAT 96–100
[2024-06-27] MEDS: IPRATROPIUM/ALBUTEROL 3 ML AMPUL.NEB INH ×4 (00:20→18:20)
[2024-06-27] MEDS: LEVOTHYROXINE 50 MCG TABLET GT (05:14)
[2024-06-27] MEDS: LACTULOSE 10 GM/15 ML SOLUTION GT ×3 (05:14→21:35)
[2024-06-27] MEDS: BUMETANIDE 1 MG TABLET GT ×2 (08:03→20:33)
[2024-06-27] MEDS: acetaZOLAMIDE 250 MG TABLET GT ×2 (08:03→20:33)
[2024-06-27] MEDS: FERROUS SULFATE 220 MG/5 ML ELIXIR 330 MG GT (08:04)
[2024-06-27] MEDS: FAMOTIDINE 20 MG TABLET GT (08:04)
[2024-06-27] MEDS: POTASSIUM CHLORIDE 20 MEQ TAB.ER.PRT GT ×2 (08:05→20:35)
[2024-06-27] MEDS: MULTIVITAMIN 1 TAB TABLET GT (08:05)
[2024-06-27] MEDS: levETIRAcetam 750 MG TABLET GT (08:05)
[2024-06-27] MEDS: ACETAMINOPHEN 325 MG TABLET 650 MG GT ×2 (08:06→20:36)
[2024-06-27] MEDS: VALPROIC ACID 250 MG/5 ML 1000 MG GT (08:06)
--- NOTE | 2024-06-27 16:36 | PD.SAPROG ---
Progress Note - SubAcute DIAGNOSIS (1) Chronic respiratory failure with hypoxia: Status: Chronic (2) Dependent on ventilator: Status: Chronic (3) Congestive cardiac failure: Status: Chronic (4) Epilepsy, unspecified, intractable, without status epilepticus: Status: Chronic (5) Anemia: Status: Chronic (6) Hypothyroidism, unspecified: Status: Chronic (7) Developmental disorder of scholastic skills, unspecified: Status: Chronic (8) Age-related osteoporosis without current pathological fracture: Status: Chronic (9) Gastrostomy status: Status: Chronic (10) Tracheostomy status: Status: Chronic SUBJECTIVE Fever:: unchanged (low grade) GI:: none Shortness of Breath:: none GI:: no complaints Pain:: none OBJECTIVE Most recent vital signs: Last Vital Signs Temp 97.6 F 06/27/24 12:00 Pulse 93 06/27/24 12:00 Resp 22 H 06/27/24 12:00 BP 103/68 06/27/24 12:00 Pulse Ox 98 06/27/24 06:52 O2 Del Method Mechanical Ventilation 06/27/24 06:00 FiO2 40 06/27/24 10:00 Neurological:: awake Speech:: nods head and appropriate (Sometimes) Answers questions:: sometimes Respiratory:: lungs clear Cardiovascular: RRR Abdomen: soft and nontender Decubitus:: none Tracheostomy:: to ventilator Feeding per:: G tube Complaints:: none ASSESSMENT & PLAN Assessment: Patient with cognitive function deficits. ventilator dependent. No distress. Stable condition. Diagnosis and treatment reviewed. Pt does not tolerate weaning from Ventilator, attempted very many times. Pt maintains some activities and comfortable. No new issues of pain/ discomfort. Prognostic outlook limited. Family aware and kept updated. Plan: Current treatment reviewed and continued
[2024-06-27] MEDS: levETIRAcetam 1,000 MG TABLET 1000 MG GT (20:34)
[2024-06-27] MEDS: LOSARTAN 25 MG TABLET GT (20:34)
[2024-06-28] VITALS (11 sets, daily range): BP systolic 91–139; BP diastolic 59–80; PULSE 60–110; RESP 20–32; TEMP 36.2–37.2; O2SAT 97–99
[2024-06-28] MEDS: IPRATROPIUM/ALBUTEROL 3 ML AMPUL.NEB INH ×4 (01:20→19:31)
[2024-06-28] MEDS: ACETAMINOPHEN 325 MG TABLET 650 MG GT ×2 (04:30→20:35)
[2024-06-28] MEDS: LACTULOSE 10 GM/15 ML SOLUTION GT ×3 (05:23→21:30)
[2024-06-28] MEDS: LEVOTHYROXINE 50 MCG TABLET GT (05:23)
[2024-06-28 07:49] LABS: Basophils % (Auto) 0 % (0-2.5); Eosinophils # (Auto) 0.2 Thou/mm3 (0.0-0.5); Eosinophils % (Auto) 1 % (0-10); Hematocrit 42.3 % (41.0-53.0); Hemoglobin 13.6 g/dL (13.5-16.0); Immature Granulocytes % (Auto) 0 % (0-0); Immature Granulocytes Auto 0.04 Thou/mm3 (0.00-0.00); Lymphocytes # (Auto) 1.8 Thou/mm3 (1.0-4.8); Lymphocytes % (Auto) 13 % (10-50); Mean Corpuscular HGB Conc 32.2 g/dl (31.0-37.0); Mean Corpuscular Hemoglobin 31.9 pg (25.0-35.0); Mean Corpuscular Volume 99 fL (80-100); Monocytes % (Auto) 7 % (0-12); Neutrophils # (Auto) 10.6 Thou/mm3 (1.8-7.7); Neutrophils % (Auto) 78 % (37-80); Nucleated Red Blood Cell % 0 /100 WBC (0); Platelet Count 149 Thou/mm3 (140-440); Red Blood Count 4.26 Miln/mm3 (4.50-5.90); White Blood Count 13.6 Thou/mm3 (3.8-10.6)
[2024-06-28 08:48] LABS: Alanine Aminotransferase 37 U/L (10-49); Albumin, Serum 3.8 gm/dL (3.4-4.8); Albumin/Globulin Ratio 1.4 (1.2-2.2); Alkaline Phosphatase 125 U/L (46-116); Anion Gap 9 (7-16); Aspartate Amino Transferase 12 U/L (0-34); BUN/Creatinine Ratio 21 Ratio (12-20); Bilirubin,Total 0.5 mg/dL (0.3-1.2); Blood Urea Nitrogen 25 mg/dL (9-23); Calcium 8.9 mg/dL (8.3-10.6); Calcium (Corrected) 9.1 mg/dL (8.5-10.1); Carbon Dioxide 27.1 mMol/L (20.0-31.0); Chloride 104 mMol/L (98-107); Creatinine (Component) 1.2 mg/dL (0.6-1.3); Estimated Creatinine Clearance 65.9 mL/min (>60); Globulin 2.8 gm/dL (2.3-3.5); Glucose 122 mg/dL (74-106); Osmolality,Calculated 284 (275-295); Potassium 3.8 mMol/L (3.4-5.1); Sodium 140 mMol/L (136-145); Total Protein 6.6 gm/dL (5.7-8.2); eGFR > 60 See Note
[2024-06-28] MEDS: acetaZOLAMIDE 250 MG TABLET GT ×2 (08:53→20:32)
[2024-06-28] MEDS: BUMETANIDE 1 MG TABLET GT ×2 (08:53→20:32)
[2024-06-28] MEDS: FERROUS SULFATE 220 MG/5 ML ELIXIR 330 MG GT (08:54)
[2024-06-28] MEDS: FAMOTIDINE 20 MG TABLET GT (08:54)
[2024-06-28] MEDS: POTASSIUM CHLORIDE 20 MEQ TAB.ER.PRT GT ×2 (08:55→20:34)
[2024-06-28] MEDS: VALPROIC ACID 250 MG/5 ML 1000 MG GT (08:55)
[2024-06-28] MEDS: levETIRAcetam 750 MG TABLET GT (08:55)
[2024-06-28] MEDS: MULTIVITAMIN 1 TAB TABLET GT (08:55)
--- NOTE | 2024-06-28 17:31 | PC.NURSE ---
CBC results with elevated WBC of 13.6, stable, afebrile. Notified Dr Lackey, no new orders made.
[2024-06-28] MEDS: levETIRAcetam 1,000 MG TABLET 1000 MG GT (20:34)
[2024-06-29] VITALS (11 sets, daily range): BP systolic 95–123; BP diastolic 57–88; PULSE 56–96; RESP 20–29; TEMP 36.2–36.9; O2SAT 97–100
[2024-06-29] MEDS: IPRATROPIUM/ALBUTEROL 3 ML AMPUL.NEB INH ×4 (00:42→19:11)
[2024-06-29] MEDS: LACTULOSE 10 GM/15 ML SOLUTION GT ×3 (05:20→21:18)
[2024-06-29] MEDS: LEVOTHYROXINE 50 MCG TABLET GT (05:20)
[2024-06-29] MEDS: acetaZOLAMIDE 250 MG TABLET GT ×2 (08:45→20:15)
[2024-06-29] MEDS: BUMETANIDE 1 MG TABLET GT ×2 (08:45→20:16)
[2024-06-29] MEDS: FERROUS SULFATE 220 MG/5 ML ELIXIR 330 MG GT (08:46)
[2024-06-29] MEDS: CARVEDILOL 3.125 MG TABLET GT (08:46)
[2024-06-29] MEDS: FAMOTIDINE 20 MG TABLET GT (08:46)
[2024-06-29] MEDS: levETIRAcetam 750 MG TABLET GT (08:47)
[2024-06-29] MEDS: VALPROIC ACID 250 MG/5 ML 1000 MG GT (08:47)
[2024-06-29] MEDS: MULTIVITAMIN 1 TAB TABLET GT (08:47)
[2024-06-29] MEDS: POTASSIUM CHLORIDE 20 MEQ TAB.ER.PRT GT ×2 (08:47→20:17)
[2024-06-29] MEDS: levETIRAcetam 1,000 MG TABLET 1000 MG GT (20:17)
[2024-06-29] MEDS: LOSARTAN 25 MG TABLET GT (20:17)
[2024-06-29] MEDS: ACETAMINOPHEN 325 MG TABLET 650 MG GT (20:20)
[2024-06-30] VITALS (10 sets, daily range): BP systolic 101–132; BP diastolic 49–84; PULSE 64–105; RESP 20–30; TEMP 36.5–36.8; O2SAT 96–99
[2024-06-30] MEDS: IPRATROPIUM/ALBUTEROL 3 ML AMPUL.NEB INH ×4 (00:29→19:01)
[2024-06-30] MEDS: LACTULOSE 10 GM/15 ML SOLUTION GT ×2 (05:23→21:02)
[2024-06-30] MEDS: LEVOTHYROXINE 50 MCG TABLET GT (05:24)
[2024-06-30] MEDS: acetaZOLAMIDE 250 MG TABLET GT ×2 (08:30→21:02)
[2024-06-30] MEDS: FAMOTIDINE 20 MG TABLET GT (08:31)
[2024-06-30] MEDS: BUMETANIDE 1 MG TABLET GT ×2 (08:31→21:02)
[2024-06-30] MEDS: levETIRAcetam 750 MG TABLET GT (08:31)
[2024-06-30] MEDS: FERROUS SULFATE 220 MG/5 ML ELIXIR 330 MG GT (08:31)
[2024-06-30] MEDS: MULTIVITAMIN 1 TAB TABLET GT (08:32)
[2024-06-30] MEDS: VALPROIC ACID 250 MG/5 ML 1000 MG GT (08:33)
[2024-06-30] MEDS: POTASSIUM CHLORIDE 20 MEQ TAB.ER.PRT GT ×2 (08:33→21:02)
[2024-06-30] MEDS: ACETAMINOPHEN 325 MG TABLET 650 MG GT (08:33)
[2024-06-30] MEDS: guaiFENesin Liq 100 MG/5 ML LIQUID 300 MG GT (08:33)
[2024-06-30] MEDS: levETIRAcetam 1,000 MG TABLET 1000 MG GT (21:02)
[2024-07-01] VITALS (13 sets, daily range): BP systolic 103–118; BP diastolic 66–83; PULSE 68–100; RESP 20–33; TEMP 36.2–37.2; O2SAT 97–100
[2024-07-01] MEDS: IPRATROPIUM/ALBUTEROL 3 ML AMPUL.NEB INH ×4 (00:05→18:48)
[2024-07-01] MEDS: LACTULOSE 10 GM/15 ML SOLUTION GT ×3 (05:17→21:15)
[2024-07-01] MEDS: LEVOTHYROXINE 50 MCG TABLET GT (05:17)
[2024-07-01] MEDS: BUMETANIDE 1 MG TABLET GT ×2 (08:27→20:31)
[2024-07-01] MEDS: acetaZOLAMIDE 250 MG TABLET GT ×2 (08:27→20:31)
[2024-07-01] MEDS: MULTIVITAMIN 1 TAB TABLET GT (08:28)
[2024-07-01] MEDS: VALPROIC ACID 250 MG/5 ML 1000 MG GT (08:28)
[2024-07-01] MEDS: levETIRAcetam 750 MG TABLET GT (08:28)
[2024-07-01] MEDS: CARVEDILOL 3.125 MG TABLET GT (08:28)
[2024-07-01] MEDS: POTASSIUM CHLORIDE 20 MEQ TAB.ER.PRT GT ×2 (08:28→20:32)
[2024-07-01] MEDS: FAMOTIDINE 20 MG TABLET GT (08:28)
[2024-07-01] MEDS: FERROUS SULFATE 220 MG/5 ML ELIXIR 330 MG GT (08:28)
[2024-07-01] MEDS: levETIRAcetam 1,000 MG TABLET 1000 MG GT (20:32)
[2024-07-01] MEDS: LOSARTAN 25 MG TABLET GT (20:32)
[2024-07-01] MEDS: ACETAMINOPHEN 325 MG TABLET 650 MG GT (20:33)
[2024-07-02 01:06] VITALS: PULSE 88; PULSE 94; RESP 25; RESP 37; O2SAT 100; O2SAT 96
[2024-07-02] MEDS: IPRATROPIUM/ALBUTEROL 3 ML AMPUL.NEB INH ×2 (01:06→06:38)
[2024-07-02] MEDS: LACTULOSE 10 GM/15 ML SOLUTION GT (05:18)
[2024-07-02] MEDS: LEVOTHYROXINE 50 MCG TABLET GT (05:18)
[2024-07-02 05:58] VITALS: BP 115/80; PULSE 94; RESP 36; TEMP 36.8; O2SAT 100
[2024-07-02 06:38] VITALS: PULSE 87; PULSE 92; RESP 24; RESP 26; O2SAT 100; O2SAT 97
[2024-07-02] MEDS: acetaZOLAMIDE 250 MG TABLET GT (08:51)
[2024-07-02 08:52] VITALS: BP 124/78; PULSE 94
[2024-07-02] MEDS: VALPROIC ACID 250 MG/5 ML 1000 MG GT (08:52)
[2024-07-02] MEDS: MULTIVITAMIN 1 TAB TABLET GT (08:52)
[2024-07-02] MEDS: FERROUS SULFATE 220 MG/5 ML ELIXIR 330 MG GT (08:52)
[2024-07-02] MEDS: FAMOTIDINE 20 MG TABLET GT (08:52)
[2024-07-02] MEDS: BUMETANIDE 1 MG TABLET GT (08:52)
[2024-07-02] MEDS: POTASSIUM CHLORIDE 20 MEQ TAB.ER.PRT GT (08:52)
[2024-07-02] MEDS: CARVEDILOL 3.125 MG TABLET GT (08:52)
[2024-07-02] MEDS: levETIRAcetam 750 MG TABLET GT (08:52)
--- NOTE | 2024-07-02 12:40 | PC.NURSE ---
At around 09:56, staff went to resident's room when heard vent alarming. Resident connected to the ventilator and all tubings connected. Resident noted to be pale, unable to obtain any pulse, no blood pressure. No response to any stimuli, pupils noted to be dilated. Resident noted to be DNR as per POLST form signed by his family. Called greenhouse transplanter at 10:08 and made her aware and will call the ER doctor. Notified Dr Lackey at 10:14 and he said to notify the greenhouse transplanter. EXPLOSION WELDER Shahla came in at 10:37 and pronounced the cessation of life at 10:[address] Lackey at 10:55. Called resident's father at 11:08 who lives in [place] and made him aware of the passing of the resident and will call us for the family's mortuary of choice.No family/relatives nearby to come and see the remains per resident's father. Called the Donor network at 11:18 spoke with Carlos ref# [id number]. Received a call from Ozzy Cao from [facility] notifying this automotive service writer that resident's dad called them about the remains of the resident and he mentioned that resident has already a plan under with them. Called resident's dad and verified. [facility] 12:17. Remains was released to family's mortuary of choice [facility] at 13:00.
[2024-07-03 06:48] LABS: Levetiracetam (Keppra)* 47.8 mcg/mL (6.0-46.0)
--- NOTE | 2024-07-05 09:54 | PC.SS ---
This [facility] called and spoke with resident RP/Conservator Jeremi Javier and emailed with resident sister Jeanne, offered condolences for resident passing. Jeremi was thankful and grateful for the care in facility. Jeremi stated he and his daughters have agreed to donate all inventory to facility. Since Jeremi lives in [place] he has agreed to receive, revierw and sign inventory via email. This [facility] will email inventory sheet for review and signature.
== END | disposition expired | DRG 207 ==
PROVIDERS: Admitting Provider Specialist; PCP Specialist; Visit Provider Specialist
DX: J96.11 Chronic respiratory failure with hypoxia (principal); N39.0 Urinary tract infection, site not specified; I50.30 Unspecified diastolic (congestive) heart failure; Z99.11 Dependence on respirator [ventilator] status; G40.919 Epilepsy, unspecified, intractable, without status epilepticus; E03.9 Hypothyroidism, unspecified; Z66 Do not resuscitate; R33.9 Retention of urine, unspecified; F81.9 Developmental disorder of scholastic skills, unspecified; M81.0 Age-related osteoporosis without current pathological fracture; Z93.1 Gastrostomy status; Z93.0 Tracheostomy status; Z74.01 Bed confinement status; Z79.01 Long term (current) use of anticoagulants; D53.9 Nutritional anemia, unspecified; D72.829 Elevated white blood cell count, unspecified; R50.9 Fever, unspecified
CPT/HCPCS: 36415; 71045; 80048; 80053; 80069; 80164; 80177; 81001; 83735; 84145; 84443; 85025; 87040; 87077; 87086; 87186; 87205; 87502; 87811; 94002; 94004; 94640; 94762